=== PATIENT | female | born 1985 | race Caucasian/White ===

== ENCOUNTER 2021-07-07 15:12 | Emergency (ER) | payer MEDICAID, SELFPAY ==
--- NOTE | 2021-07-07 | ECG_ITS ---
Test Reason : cp/dizziness Blood Pressure : / mmHG Vent. Rate : 083 BPM Atrial Rate : 083 BPM P-R Int : 132 ms QRS Dur : 078 ms QT Int : 360 ms P-R-T Axes : 069 063 042 degrees QTc Int : 423 ms Normal sinus rhythm Normal ECG No previous ECGs available Referred By: Generic ED Physician Electronically Signed By:Yony Ramos
[2021-07-07 16:57] VITALS: BP 123/72; PULSE 101; RESP 18; TEMP 36.8; O2SAT 98; BMI 31.3
[2021-07-07 17:28] LABS: IDNOW Serial# 16C4AD1C
[2021-07-07 17:29] LABS: COVID-19 Test Negative (Negative); Influenza A Negative (Negative); Influenza B2 Negative (Negative)
[2021-07-07 19:50] LABS: Basophils Absolute Auto 0.1 X10*3/uL (0.0-0.2); Basophils Percent Auto 0.9 % (0-2); Eosinophils Absolute Auto 0.1 X10*3/uL (0.0-0.4); Eosinophils Percent Auto 1.4 % (0-4); Hematocrit 42.7 % (37.0-47.0); Hemoglobin 14.1 g/dl (12.0-16.0); Imm Gran Abs Auto 0.02 X10*3/uL (0.00-0.03); Imm Gran Pct Auto 0.2 % (0.0-0.4); Lymphocytes Absolute Auto 4.1 X10*3/uL (1.2-4.9); Lymphocytes Percent Auto 51.1 % (20-40); MANUAL DIFF FLAG NO; Mean Corpuscular Hemoglobin 28.2 pg (27.0-33.0); Mean Corpuscular Volume 85.4 fL (80.0-98.0); Monocytes Absolute Auto 0.6 X10*3/uL (0.1-1.2); Monocytes Percent Auto 7.7 % (2-11); Neutrophils Absolute Auto 3.1 x10*3/uL (2.0-8.3); Neutrophils Percent Auto 38.7 % (45-73); Platelet Count 299 X10*3/uL (160-400); Red Cell Distribution Width 13.8 % (11.0-16.0); White Blood Count 8.1 X10*3/uL (4.8-10.8)
[2021-07-07 20:05] LABS: Anion Gap 14 (12-20); Blood Urea Nitrogen 9 mg/dL (9-16); Calcium 10.4 mg/dL (8.4-10.2); Carbon Dioxide 27 mmol/L (22-29); Chloride 101 mmol/L (96-108); Creatinine Clr Calc Pharmacy 108.5; Estimated Glomerular Filt Rate > 60; Glucose Random 122 mg/dL (60-115); Potassium 3.8 mmol/L (3.3-5.1); Sodium 138 mmol/L (135-145)
== END 2021-07-07 21:08 | disposition left against medical advice (07) ==
PROVIDERS: Emergency Provider Emergency Medicine; PCP Family Medicine
DX: R42 Dizziness and giddiness (principal); Z20.822 Contact with and (suspected) exposure to COVID-19
CPT/HCPCS: 36415; 80048; 85025; 87502; 87635; 93005; 99281; 99283

== ENCOUNTER 2021-07-11 15:10 | Inpatient (IN) | payer MEDICAID, OTHER, SELFPAY ==
[2021-07-11] VITALS (13 sets, daily range): BP systolic 137; BP diastolic 82; PULSE 70; RESP 14–20; TEMP 36.3; O2SAT 96; BMI 32.0
[2021-07-11] MEDS: diphenhydrAMINE HCL 50 MG/ML VIAL IM (15:28)
[2021-07-11] MEDS: Haloperidol Lactate 5 MG/ML VIAL IM (15:28)
[2021-07-11] MEDS: LORazepam 2 MG/ML VIAL IM ×2 (15:28→17:40)
--- NOTE | 2021-07-11 15:46 | ED.PSYCH ---
HPI - Psych General Stated Complaint: age unk age,crisis,non verbal per ems Time Seen by Provider: 07/11/21 15:21 Source: EMS Mode of arrival: EMS Limitations: other (will not answer questions, screaming) History of Present Illness HPI Narrative: patient brought in extremely aggressive with jewish preoccupations brought in by EMS as well with police on board MD complaint: hallucinations and other (aggression) Onset (ago): unknown Duration: constant History of same: No Relieving factors: none Exacerbating factors: none Associated psychiatric symptoms: delusions Associated symptoms: other (aggression, agitation, violent behaviors) Treatments prior to arrival: none Related Data Allergies Allergy/AdvReac Type Severity Reaction Status Date / Time Unable to Assess Allergy Verified 07/11/21 15:21 Review of Systems Review of Systems: ROS unable to be obtained due to agitation and not answering questions PMF Past Medical History Source: unable to obtain (will not answer questions unobtainable) Medical History (Updated 07/11/21 @ 16:09 by Lorna Smith DO) Medical history unknown Social History Social History (Updated 07/11/21 @ 15:47 by Lorna Smith DO) Patient Tobacco Use Status: Tobacco use Unknown Use of substances other than those prescribed or required for medical reasons: Refusing to respond Physical Exam Vital Signs: Appearance: Alert. Screaming out loud attempting to grab staff You don't want this. Hitting herself in the head. Eyes: Pupils equal, round and reactive to light. ENT: Pharynx normal. Atraumatic Neck: Normal inspection. Neck supple. CVS: cannot obtain exam. Respiratory: No respiratory distress. Abdomen: Atraumatic Skin: Skin warm and dry. Normal skin color. Normal skin turgor. Extremities: No lower extremity edema. Neuro: Will not participate in exam - moves all extremities, cannot obtain CN exam. Psych: patient extremely agitated, physically and verbally aggressive making threats Course Course Course Narrative: signed out to Tri SHAIKH pending clearance more calm post medications MDM - Psych MDM Narrative Medical decision making narrative: 36 yo female with hx of ?schizophrenia per off of medications here with c/o agitation aggression very violent cannot get much of a history - CARE team to call family. At this time will need labs and IM medications for patient and staff safety given her behaviors are out of control. Section 12 filled out by me on arrival as none was on the chart. Discharge Plan Discharge Clinical Impression: Agitation Patient Disposition: Still a Patient
--- NOTE | 2021-07-11 16:13 | MHC.CARE ---
CARE team received a phone call from pt's partner, Shamar ([phone]) who shared information about the pt. For the past 3 days the pt has been experiencing episodes of intense agitation, yelling and screaming and banging on the romero and floors of his mother's apartment where she has been staying with them. He reported that his mother called 911 for pt to be transported to the hospital for intervention, stating that they were trying to calm her down and since his mother lives in [address] housing that her level of disturbance places his mother at risk of losing her housing voucher. He shared that they have been together for about 3 months and in the time that he's known her she hasn't been on medications, but has been trying to get an appointment with Dr. Chang through [facility] so she can have her medications filled/restarted. He reported that she has an appointment on 07/18/21 but that she can't wait that long because she's been getting worse. He wasn't certain was her diagnosis is, but said that he thinks she said that she has schizophrenia, anxiety, and PTSD. Information has been passed along to the ED attending physician and pod staff.
[2021-07-11] MEDS: OLANZapine 10 MG VIAL IM (17:40)
[2021-07-11 18:15] LABS: COVID-19 Test Negative (Negative); IDNOW Serial# 9DB6401D
[2021-07-12 03:53] LABS: MANUAL DIFF FLAG NO
[2021-07-12 03:54] LABS: Basophils Absolute Auto 0.1 X10*3/uL (0.0-0.2); Basophils Percent Auto 0.8 % (0-2); Eosinophils Absolute Auto 0.1 X10*3/uL (0.0-0.4); Eosinophils Percent Auto 1.7 % (0-4); Hematocrit 42.5 % (37.0-47.0); Hemoglobin 14.3 g/dl (12.0-16.0); Imm Gran Abs Auto 0.01 X10*3/uL (0.00-0.03); Imm Gran Pct Auto 0.2 % (0.0-0.4); Lymphocytes Absolute Auto 2.9 X10*3/uL (1.2-4.9); Lymphocytes Percent Auto 44.6 % (20-40); Mean Corpuscular HGB Conc 33.6 g/dl (31.0-35.0); Mean Corpuscular Hemoglobin 28.6 pg (27.0-33.0); Mean Platelet Volume 9.7 fL (9.4-12.3); Monocytes Absolute Auto 0.4 X10*3/uL (0.1-1.2); Monocytes Percent Auto 6.5 % (2-11); Neutrophils Percent Auto 46.2 % (45-73); Platelet Count 252 X10*3/uL (160-400); Red Cell Distribution Width 13.4 % (11.0-16.0); White Blood Count 6.6 X10*3/uL (4.8-10.8)
[2021-07-12 04:10] LABS: Ethanol < 10 mg/dL
[2021-07-12 04:14] LABS: Alanine Aminotransferase 30 U/L (0-31); Albumin Level 4.5 g/dL (3.5-5.0); Alkaline Phosphatase 69 U/L (39-117); Anion Gap 14 (12-20); Aspartate Amino Transferase 26 U/L (5-31); Bilirubin Total 0.4 mg/dL (0.0-1.0); Blood Urea Nitrogen 10 mg/dL (9-16); Calcium 10.2 mg/dL (8.4-10.2); Carbon Dioxide 26 mmol/L (22-29); Chloride 104 mmol/L (96-108); Creatinine Clr Calc Pharmacy 101.2; Estimated Glomerular Filt Rate > 60; Glucose Random 88 mg/dL (60-115); Magnesium 2.3 mg/dL (1.6-2.6); Potassium 3.5 mmol/L (3.3-5.1); Sodium 140 mmol/L (135-145); Total Protein 7.5 g/dL (6.5-8.0)
[2021-07-12 04:34] LABS: Amphetamine Screen Urine Not Detected (Not Detect); Barbiturates, Urine Not Detected (Not Detect); Benzodiazepines Screen Urine Not Detected (Not Detect); Cannabinoid Screen Urine Not Detected (Not Detect); Cocaine Screen Urine Not Detected (Not Detect); Fentanyl, urine Not Detected (Not Detect); Opiate Screen Urine Not Detected (Not Detect); Phencyclidine Screen Urine Not Detected (Not Detect)
[2021-07-12 04:58] VITALS: BP 113/62; PULSE 74; RESP 17; TEMP 36.5; O2SAT 98
--- NOTE | 2021-07-12 05:47 | PC.NURSE ---
Patient slept through the night, no distress observed/reported, compliant with lab work, compliant with policy change clerk, patient incontinence of bladder, showered, behavior at this time calm, pleasant, and follows instruction well, [facility] referral completed/confirmed/awaiting assessment in the morning, contracted for the safety, med rec completed patient is off her medication since last September, VSS, will continue to monitor.
--- NOTE | 2021-07-12 06:51 | PHA.MEDREC ---
Pharmacy Consult ? Medication Reconciliation Pharmacy has reviewed the medication reconciliation completed by nursing. Tami Martines, ArturoD
--- NOTE | 2021-07-12 07:35 | PC.NURSE ---
patient appears to remain asleep at present respirations are even and unlabored patient appears in no distress
--- NOTE | 2021-07-12 11:09 | PM.PSYCN ---
History of Present Illness Date of Service: 07/12/21 Chief Complaint: age unk age,crisis,non verbal per ems Reason for Consult: erradic, manic behaviors. Discussed with referring provider: Yes Sources of Information: patient interviewed, chart reviewed and crisis/core team assessment reviewed HPI Narrative: Ms. Maynard is a 36 year-old woman with hx of Bipolar Disorder who was brought to [facility] via EMS on 07/11/2021 after boyfriend called police. Per crisis report- pt has been for the past 3 days experiencing episodes of intense agitation, yelling and screaming and banging on the romero and floors of pt's boyfriend's mother apartment where she has been staying with them. In the ED, pt presented as very agitated, yelling buddhism statement related to the devil being present and calling Charlie. She required IM with haldol and ativan 2mg and 2 hrs after IM with olanzapine and ativan. Her utox is negative. Today, pt presents as calmer, she does note that her behavior was off. She agrees that she needs to be in the hospital. She reports hx of Bipolar Disorder and reports not taking medications for several months. When asked about buddhism delusions, pt presents as still very guarded stating that this information is private and she would not disclose it. She denies SI/HI. She denies VH/AH but appears internally preoccupied. Past Psychiatric History: Inpatient: 2015 [facility] OP: none (used to be [facility]) Suicide attempts: denies Past trial: unknown Medical Evaluation Reviewed: Yes [facility] Medical History (Updated 07/13/21 @ 11:21 by [place] Gutierrez) Medical history unknown Diagnostics Vital Signs (24Hr): Vital Signs - 24 hr 07/12/21 20:08 07/13/21 01:40 07/13/21 01:55 Temperature 97.7 F Pulse Rate 97 Respiratory Rate 18 18 12 Blood Pressure 126/80 Pulse Oximetry 96 07/13/21 01:56 07/13/21 02:10 07/13/21 02:11 Temperature Pulse Rate Respiratory Rate 12 13 13 Blood Pressure Pulse Oximetry 07/13/21 02:25 07/13/21 02:40 07/13/21 09:47 Temperature 97.8 F Pulse Rate 89 Respiratory Rate 11 L 11 L 16 Blood Pressure 127/68 Pulse Oximetry 99 BMI result Body Mass Index 32.0 Labs Results: 07/12/21 03:49 07/14/21 08:53 Labs: Laboratory Results - last 48 hr 07/11/21 07/12/21 07/12/21 17:48 03:49 03:49 WBC 6.6 RBC 5.00 Hgb 14.3 Hct 42.5 MCV 85.0 MCH 28.6 MCHC 33.6 RDW 13.4 Plt Count 252 MPV 9.7 Immature Gran % (Auto) 0.2 Neut % (Auto) 46.2 Lymph % (Auto) 44.6 H Mont[place] % (Auto) 6.5 Eos % (Auto) 1.7 Baso % (Auto) 0.8 Lymph # (Auto) 2.9 [place] # (Auto) 0.4 Eos # (Auto) 0.1 Baso # (Auto) 0.1 Abs Immat Gran (auto) 0.01 Absolute Neuts (auto) 3.0 Absolute Nucleated RBC 0.000 Nucleated RBC % (auto) 0.0 Sodium 140 Potassium 3.5 Chloride 104 Carbon Dioxide 26 Anion Gap 14 BUN 10 Creatinine 0.86 Estim Creat Clear Calc 101.2 Estimated GFR > 60 Random Glucose 88 Calcium 10.2 Magnesium 2.3 Total Bilirubin 0.4 AST 26 ALT 30 Alkaline Phosphatase 69 Total Protein 7.5 Albumin 4.5 Urine Opiates Screen Urine Fentanyl Screen Ur Barbiturates Screen Ur Phencyclidine Scrn Ur Amphetamines Screen U Benzodiazepines Scrn Urine Cocaine Screen U Marijuana (THC) Screen Ethyl Alcohol COVID-19 ([facility]) Negative COVID-19 Clin Com See Note 07/12/21 07/12/21 03:49 04:12 WBC RBC Hgb Hct MCV MCH MCHC RDW Plt Count MPV Immature Gran % (Auto) Neut % (Auto) Lymph % (Auto) Montour % (Auto) Eos % (Auto) Baso % (Auto) Lymph # (Auto) [place]our # (Auto) Eos # (Auto) Baso # (Auto) Abs Immat Gran (auto) Absolute Neuts (auto) Absolute Nucleated RBC Nucleated RBC % (auto) Sodium Potassium Chloride Carbon Dioxide Anion Gap BUN Creatinine Estim Creat Clear Calc Estimated GFR Random Glucose Calcium Magnesium Total Bilirubin AST ALT Alkaline Phosphatase Total Protein Albumin Urine Opiates Screen Not Detected Urine Fentanyl Screen Not Detected Ur Barbiturates Screen Not Detected Ur Phencyclidine Scrn Not Detected Ur Amphetamines Screen Not Detected U Benzodiazepines Scrn Not Detected Urine Cocaine Screen Not Detected U Marijuana (THC) Screen Not Detected Ethyl Alcohol < 10 COVID-19 ([facility]) COVID-19 Clin Com Mental Status Exam Mental Status Exam Narrative: Appearance: casually groomed, fair hygiene in NAD Behavior:guarded, suspicious psychomotor: no agitation or retardation noted Speech:clear, some delayed in response, spontaneous Thought process:some thought blocking noted Thought content:some suspiciousness but increase insight into need for psych tx. Mood: anxious Affect: congruent SI:none HI:none VH/AH:appears religiously preoccupied Delusions:buddhism delusions Insight/judgment:improving x 2. Memory/cog: alert, oriented x 3. Medications Medications Current Medications Olanzapine (Olanzapine 7.5 Mg Tablet) 15 mg PO BEDTIME ENRIKE Last Admin: 07/12/21 21:57 Dose: 15 mg Documented by: Pharmacy Consult (Consult Rx Perform Med Rec) 1 each MISCELLANE ONCE PRN PRN Reason: Consult order Allergies Allergies Allergy/AdvReac Type Severity Reaction Status Date / Time No Known Allergies Allergy Verified 07/12/21 05:05 Assessment & Plan Assessment & Plan (1) Bipolar 1 disorder, manic, moderate: Status: Acute Code(s): F31.12 - Bipolar disorder, current episode manic without psychotic features, moderate Plan Ms. Maynard is a 36 year-old with hx of Bipolar Disorder type I brought in to [facility] due to erradic behaviors, agitation, buddhism delusions. Utox negative. Pt does not have OP providers nor is taking any psychotropic medications. PLAN 1. Continue bed search for inpatient admission- for further stabilization, safety containment. 2. scheduled olanzapine 15mg po qhs. pt asked for medication that was given to her yesterday during IM as she found it helpful. 3. aftercare planning. I spent __25____ minutes with the patient and/or on the patient floor today, greater than?50% of which was spent counseling/coordinating care.
--- NOTE | 2021-07-12 11:58 | MHC.CARE ---
Call to [facility] Crisis seeking collateral information regarding patient. They have never evaluated but noted 3 contacts with her. 07/06/21 Boyfriend called 911, police went with CCRT (Community Co-response Team) team went to the home and patient was noted to be very upset hyperventilating, crying hysterically and more so when her boyfriend left the room. Patient refused services or to go to the hospital. 07/07/21 CCRT called patient as a follow up and boyfriend stated patient was at the hospital for treatment of dizziness. 07/11/21 Police/CCRT were called to the boyfriend's mother's home where patient was described by clinician to be paranoid, behaving bizarrely and responding to internal stimuli, needed to be restained by EMT for transport to [facility].
--- NOTE | 2021-07-12 14:29 | PC.NURSE ---
Addendum entered by STEFF Wood 07/12/21 14:39: Pt seen this date for individual OT tx session. Pt presents with increased anxiety with apparent paranoia however is pleasant and receptive to tx session. Pt persevering on contacting N and finding the phone number. Pt reports using coping skills meditation and deep breathing technique to ease feelings of anxiety and states Sometimes I pace up and down the truong too . Pt encouraged to sit out of her room in POD milieu to engage in mindful coloring activity and is agreeable. Pt accepts coloring pages, daily prayer, word searches, sensory tool, and independent reading activities provided this date. Original Note: Pt seen this date for individual OT tx session. Pt presents with increased anxiety with apparent paranoia however is pleasant and receptive to tx session. Pt persevering on contacting N and finding the phone number. Pt reports using coping skills meditation and deep breathing technique to ease feelings of anxiety and states Sometimes I pace up and down the truong too . Pt encouraged to sit out of her room in POD milieu to engage in mindful coloring activity and is receptive. Pt accepts coloring pages, daily prayer, word searches, and independent reading activities provided this date.
--- NOTE | 2021-07-12 17:38 | PC.NURSE ---
client approaches this production underwriter and asks if aqll the meds you gave yesterday can be ordered for me i tried to explain to the client how two of the medicines are of the same class, contacted provider and discovered that patient srinivasan has orders for evening medications and provider tina prns will be put in plac3e
[2021-07-12 20:08] VITALS: BP 126/80; PULSE 97; RESP 18; TEMP 36.5; O2SAT 96
[2021-07-12] MEDS: LORazepam 1 MG TABLET PO (21:57)
[2021-07-12] MEDS: OLANZapine 7.5 MG TABLET 15 MG PO (21:57)
[2021-07-13] VITALS (10 sets, daily range): BP systolic 110–133; BP diastolic 67–87; PULSE 89–103; RESP 11–20; TEMP 36.6–36.7; O2SAT 96–99; BMI 31.5
--- NOTE | 2021-07-13 | ECG_ITS ---
Test Reason : MEDICAL CLEARANCE Blood Pressure : / mmHG Vent. Rate : 072 BPM Atrial Rate : 072 BPM P-R Int : 146 ms QRS Dur : 074 ms QT Int : 378 ms P-R-T Axes : 059 062 040 degrees QTc Int : 413 ms Normal sinus rhythm with sinus arrhythmia Normal ECG No previous ECGs available Referred By: Barbara Bratlett Electronically Signed By:NAYA ZAVALETA MD
[2021-07-13] MEDS: LORazepam 2 MG/ML VIAL IM (01:40)
[2021-07-13] MEDS: Haloperidol Lactate 5 MG/ML VIAL IM (01:40)
[2021-07-13] MEDS: diphenhydrAMINE HCL 50 MG/ML VIAL IM (01:40)
--- NOTE | 2021-07-13 04:00 | PC.NURSE ---
0015 to 0140, patient was found restless, pacing, constantly going to bathroom, washing socks in sink, drinking water from sink, self dialoguing, in her room patient engaged in self hitting, self dialoguing, refused medication, verbally abusive towards staff member, behavior escalating fast, provider notified/ordered/ Ativan 2 mg IM, and Haldol 5 mg IM, and Benadryl 50 mg IM/administered as ordered at 0140 in presence of security. Patient was on one to one for safety observation from 139 to 0240, patient finally fell asleep at 0245, currently in bed appears sleeping, respiration +/=/non labored bilaterally, will continue to monitor.
--- NOTE | 2021-07-13 06:41 | PC.NURSE ---
patient was s/p chemical restraint and slept well, no distress observed/reported, disposition per care team is section 12 inpatient bed search, medication compliant, behavior labile and unpredictable at time psychotic, will continue to monitor.
--- NOTE | 2021-07-13 07:17 | PC.NURSE ---
patient appears to remain asleep at present respirations are even and unlabored patient appears in no distress
[2021-07-13 13:15] LABS: COVID-19 Test Negative (Negative); IDNOW Serial# 16C4AD1C
--- NOTE | 2021-07-13 15:12 | PC.NURSE ---
Nurse 2 Nurse completed
[2021-07-13 16:24] LABS: UPreg QC Valid YES; Urine Pregnancy NEGATIVE (NEGATIVE)
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
[2021-07-13] MEDS: Nicotine Polacrilex 2 MG GUM 4 MG BUCCAL (20:50)
[2021-07-13] MEDS: OLANZapine 7.5 MG TABLET 15 MG PO (21:58)
[2021-07-13] MEDS: hydrOXYzine HCL 50 MG TABLET PO (21:58)
[2021-07-14] MEDS: Acetaminophen 325 MG TABLET 650 MG PO (08:10)
[2021-07-14 08:13] VITALS: BP 122/75; PULSE 96; RESP 17; TEMP 36.4; O2SAT 97
[2021-07-14 09:17] LABS: Estimated Average Glucose 123 mg/dL; Hemoglobin A1C 150.2234 umol/L; Hemoglobin A1c % 5.9 %
[2021-07-14 09:39] LABS: Alanine Aminotransferase 24 U/L (0-31); Albumin Level 4.2 g/dL (3.5-5.0); Alkaline Phosphatase 61 U/L (39-117); Anion Gap 15 (12-20); Aspartate Amino Transferase 19 U/L (5-31); Bilirubin Total 0.3 mg/dL (0.0-1.0); Blood Urea Nitrogen 12 mg/dL (9-16); Calcium 9.5 mg/dL (8.4-10.2); Carbon Dioxide 19 mmol/L (22-29); Chloride 106 mmol/L (96-108); Cholesterol 206 mg/dL; Creatinine Clr Calc Pharmacy 106.5; Estimated Glomerular Filt Rate > 60; Glucose Fasting 135 mg/dL (60-99); HDL Cholesterol 39 mg/dL; LDL Cholesterol Calculated 138 mg/dl; Potassium 3.8 mmol/L (3.3-5.1); Sodium 136 mmol/L (135-145); Total Protein 6.8 g/dL (6.5-8.0); Triglycerides 146 mg/dL
[2021-07-14 09:41] LABS: Thyroid Stimulating Hormone 1.39 uIU/mL (0.32-4.0)
[2021-07-14 09:58] LABS: Folate 16.9 ng/mL (> or = 4.0); Vitamin B12 213 pg/mL (200-900)
--- NOTE | 2021-07-14 10:22 | HO.PSYADMNOT ---
HPI Date of Service: 07/13/21 Chief Complaint: age unk age,crisis,non verbal per ems Sources of Information: patient interviewed, chart reviewed and crisis/core team assessment reviewed HPI Subjective Notes: Moore Warning, Conditional Voluntary and 3 Day Narrative: Ms. Maynard is a 36 year-old woman with hx of Bipolar Disorder who was brought to [facility] ED via EMS on 07/11/2021 after boyfriend called police. Per crisis report- pt has been for the past 3 days experiencing episodes of intense agitation, yelling and screaming and banging on the romero and floors of pt's boyfriend's mother apartment where she has been staying with them. In the ED, pt presented as very agitated, yelling rastafarian statement related to the devil being present and calling Charlie. She required IM with haldol and ativan 2mg and 2 hrs after IM with olanzapine and ativan. Her utox is negative. On the unit, pt presents as calmer, still guarded about rastafarian delusions and AH/VH she was experiencing stating that this information is personal. Pt does report that she was seeing figures that resemble the devil and that she thought people were after her. She reports less racing thoughts since taking olanzapine at night. She reports having more clear thoughts. She denies SI/HI. She asks to be discharged soon as she has to pay for motel of her boyfriend and they don't accept payment over the phone. Past Psychiatric History: Inpatient: 2015 [facility] OP: none (used to be [facility]) Suicide attempts: denies Past trial: unknown Past Psychiatric History: Inpatient: 2015 [facility] OP: none (used to be [facility]) Suicide attempts: denies Past trial: unknown Medical Evaluation Reviewed: Yes [facility] Medical History (Updated 07/13/21 @ 11:21 by [place] Gutierrez) Medical history unknown Diagnostics Vital Signs (24Hr): Vital Signs - 24 hr 07/13/21 16:00 07/13/21 20:51 07/14/21 08:13 Temperature 97.8 F 98.0 F 97.6 F Pulse Rate 93 103 H 96 Respiratory Rate 20 18 17 Blood Pressure 110/67 133/87 122/75 Pulse Oximetry 97 96 97 BMI result Body Mass Index 31.5 Labs Results: 07/12/21 03:49 07/14/21 08:53 Labs: Laboratory Results - last 48 hr 07/13/21 07/13/21 07/14/21 12:51 15:22 08:53 Sodium 136 Potassium 3.8 Chloride 106 Carbon Dioxide 19 L Anion Gap 15 BUN 12 Creatinine 0.81 Estim Creat Clear Calc 106.5 Estimated GFR > 60 Fasting Glucose 135 H Estimat Average Glucose Hemoglobin A1c % Calcium 9.5 D Total Bilirubin 0.3 AST 19 ALT 24 Alkaline Phosphatase 61 Total Protein 6.8 Albumin 4.2 Triglycerides 146 Cholesterol 206 LDL Cholesterol, Calc 138 HDL Cholesterol 39 Vitamin B12 Folate TSH 1.39 Urine Test NEGATIVE COVID-19 ([facility]) Negative COVID-19 Mobile [employer] Com See Note 07/14/21 07/14/21 08:53 08:53 Sodium Potassium Chloride Carbon Dioxide Anion Gap BUN Creatinine Estim Creat Clear Calc Estimated GFR Fasting Glucose Estimat Average Glucose 123 Hemoglobin A1c % 5.9 Calcium Total Bilirubin AST ALT Alkaline Phosphatase Total Protein Albumin Triglycerides Cholesterol LDL Cholesterol, Calc HDL Cholesterol Vitamin B12 213 Folate 16.9 TSH Urine Test COVID-19 ([facility]) COVID-19 Clin Com Meds/Allergies Meds Home Medications Medication Instructions Recorded Confirmed Type No Known Home Meds 07/12/21 07/12/21 History Allergies Allergies Allergy/AdvReac Type Severity Reaction Status Date / Time No Known Allergies Allergy Verified 07/12/21 05:05 Mental Status Exam Mental Status Exam Narrative: Appearance: casually groomed, fair hygiene in NAD Behavior:guarded, suspicious psychomotor: no agitation or retardation noted Speech:clear, some delayed in response, spontaneous Thought process:some thought blocking noted Thought content:some suspiciousness but increase insight into need for psych tx. Mood: anxious Affect: congruent SI:none HI:none VH/AH:appears religiously preoccupied Delusions:rastafarian delusions Insight/judgment:improving x 2. Memory/cog: alert, oriented x 3. Assessment & Plan Assessment & Plan (1) Bipolar 1 disorder, manic, moderate: Status: Acute Code(s): F31.12 - Bipolar disorder, current episode manic without psychotic features, moderate Plan Ms. Lomeli was brought in by police after boyfriend called reporting pt acting erradically, yelling, punching romero, appearing psychotic and delusional. Utox negative. PLAN 1. admit to M3, cv 15 minutes checks for safety 2. continue olanzapine 20mg po qhs- which was started in the ED. 3. Obtain collateral information 4. Aftercare planning. Patient educated on: diagnosis and medication risk/benefits Informed Consent: understands Reason for continued inpatient stay Substantial Risk for: inability to function
[2021-07-14] MEDS: hydrOXYzine HCL 50 MG TABLET PO ×2 (11:10→20:36)
[2021-07-14] MEDS: Nicotine Polacrilex 2 MG GUM 4 MG BUCCAL (11:10)
--- NOTE | 2021-07-14 14:52 | MHC.CLN ---
NUTRITION CONSULT FOR FOOD SENSITIVITIES AND WEIGHT LOSS. REPORTS THAT HAS GERD AND SOME SPICES AND FOODS BOTHER HER. ABLE TO MAKE OWN FOOD CHOICES TO AVOID SUCH FOODS. AWARE OF MENU CHOICES AND THAT SOME FOODS ARE AVAILABLE FROM THE UNIT KITCHEN. REPORTS SOME WEIGHT LOSS WITH DECREASED APPETITE PRIOR TO ADMISSION. APPEARS TO BE EATING BETTER. DISCUSSED DIABETIC DIET DUE TO REPORTED PRE DIABETES. PATIENT WOULD LIKE REGULAR DIET. WOULD LIKE ENSURE BID. ORDER PLACED. PROVIDES ADDITIONAL 700 KCALS, 40 G PROTEIN.
[2021-07-14] MEDS: OLANZapine 10 MG TABLET 20 MG PO (20:36)
[2021-07-14 20:39] VITALS: BP 139/85; PULSE 100; TEMP 36.7; O2SAT 97
[2021-07-14] MEDS: HaloperidoL 5 MG TABLET PO (21:14)
[2021-07-15] MEDS: Acetaminophen 325 MG TABLET 650 MG PO (09:15)
[2021-07-15] MEDS: HaloperidoL 5 MG TABLET PO ×2 (09:15→14:26)
[2021-07-15 09:17] VITALS: BP 110/79; PULSE 73; RESP 16; TEMP 36.6; O2SAT 100
--- NOTE | 2021-07-15 09:23 | HO.PSYCHPN ---
Subjective Subjective Date of Service: 07/15/21 Reason For Visit: age unk age,crisis,non verbal per ems Subjective Notes: Conditional Voluntary Healthcare Proxy: No Guardianship: No Interim History: Patient was seen and discussed in rounds today. Records and plans were reviewed. She is slowly settling in. They have needed to put her on some phone restrictions. She had stated that the Zyprexa has not been helpful and has found the Haldol to be more helpful. The on-call had put that in [place] p.r.n. basis. She had a good experience on the Haldol while in the emergency room. She denies any side effects. Eating and sleeping adequately. Some anxiety was reported. No changes were made today. Labs were reviewed Medication Compliance: Yes Side effects from medications: No Attending Groups: Yes Review of Systems Review of Systems Yes all other systems are reviewed and are negative Diagnostics Vital Signs (24Hr): Vital Signs - 24 hr 07/14/21 20:39 07/15/21 09:17 Temperature 98.0 F 98 F Pulse Rate 100 73 Respiratory Rate 16 Blood Pressure 139/85 110/79 Pulse Oximetry 97 100 BMI result Body Mass Index 31.5 Labs Results: 07/12/21 03:49 07/14/21 08:53 Labs: Laboratory Results - last 48 hr 07/13/21 07/13/21 07/14/21 12:51 15:22 08:53 Sodium 136 Potassium 3.8 Chloride 106 Carbon Dioxide 19 L Anion Gap 15 BUN 12 Creatinine 0.81 Estim Creat Clear Calc 106.5 Estimated GFR > 60 Fasting Glucose 135 H Estimat Average Glucose Hemoglobin A1c % Calcium 9.5 D Total Bilirubin 0.3 AST 19 ALT 24 Alkaline Phosphatase 61 Total Protein 6.8 Albumin 4.2 Triglycerides 146 Cholesterol 206 LDL Cholesterol, Calc 138 HDL Cholesterol 39 Vitamin B12 Folate TSH 1.39 Urine Test NEGATIVE COVID-19 ([facility]) Negative COVID-19 Clin Com See Note 07/14/21 07/14/21 08:53 08:53 Sodium Potassium Chloride Carbon Dioxide Anion Gap BUN Creatinine Estim Creat Clear Calc Estimated GFR Fasting Glucose Estimat Average Glucose 123 Hemoglobin A1c % 5.9 Calcium Total Bilirubin AST ALT Alkaline Phosphatase Total Protein Albumin Triglycerides Cholesterol LDL Cholesterol, Calc HDL Cholesterol Vitamin B12 213 Folate 16.9 TSH Urine Test COVID-19 ([facility]) COVID-19 Clin Com Medications Medications Current Medications Acetaminophen (Acetaminophen 325 Mg Tablet) 650 mg PO Q6H PRN PRN Reason: Headache/Pain Mild Scale (1-3) Last Admin: 07/15/21 09:15 Dose: 650 mg Documented by: Al Hydroxide/Mg Hydroxide (Magnesium Hydrox/Alum Hydrox 30 Ml Oral.Susp) 30 ml PO Q6H PRN PRN Reason: Heartburn/Nausea Haloperidol (Haloperidol 5 Mg Tablet) 5 mg PO BID PRN PRN Reason: agitation Last Admin: 07/15/21 09:15 Dose: 5 mg Documented by: Hydroxyzine HCl (Hydroxyzine Hcl 50 Mg Tablet) 50 mg PO Q6H PRN PRN Reason: Anxiety Last Admin: 07/14/21 20:36 Dose: 50 mg Documented by: Magnesium Hydroxide (Milk Of Magnesia 30 Ml Oral.Susp) 30 ml PO DAILY PRN PRN Reason: Constipation Nicotine Polacrilex (Nicotine Polacrilex 2 Mg Gum) 4 mg BUCCAL Q1H PRN PRN Reason: Nicotine Cravings Last Admin: 07/14/21 11:10 Dose: 4 mg Documented by: Olanzapine (Olanzapine 10 Mg Tablet) 20 mg PO BEDTIME ENRIKE Last Admin: 07/14/21 20:36 Dose: 20 mg Documented by: Pharmacy Consult (Consult Rx Perform Med Rec) 1 each MISCELLANE ONCE PRN PRN Reason: Consult order Trazodone HCl (Trazodone Hcl 50 Mg Tablet) 50 mg PO BEDTIME PRN PRN Reason: Insomnia Allergies Allergies Allergy/AdvReac Type Severity Reaction Status Date / Time No Known Allergies Allergy Verified 07/12/21 05:05 Assessment & Plan Assessment & Plan (1) Bipolar 1 disorder, manic, moderate: Status: Acute Code(s): F31.12 - Bipolar disorder, current episode manic without psychotic features, moderate Plan Ms. Lomeli was brought in by police after boyfriend called reporting pt acting erradically, yelling, punching romero, appearing psychotic and delusional. Utox negative. PLAN 1. admit to M3, cv 15 minutes checks for safety 2. continue olanzapine 20mg po qhs- which was started in the ED. 3. Obtain collateral information 4. Aftercare planning. 07/15: Continue current regimen and plans I spent minutes with the patient and/or on the patient floor today, greater than?50% of which was spent counseling/coordinating care. Reason for contiued inpatient stay Substantial Risk for: med/psych decompensation
[2021-07-15] MEDS: OLANZapine 10 MG TABLET 20 MG PO (20:11)
[2021-07-15 20:16] VITALS: BP 129/79; PULSE 85; TEMP 36.6; O2SAT 98
[2021-07-15] MEDS: hydrOXYzine HCL 50 MG TABLET PO (20:57)
--- NOTE | 2021-07-16 07:52 | HO.PSYCHPN ---
Subjective Subjective Date of Service: 07/16/21 Reason For Visit: age unk age,crisis,non verbal per ems Subjective Notes: Conditional Voluntary and 3 Day Healthcare Proxy: No Guardianship: No Medical Problems Affecting Mental Status: No Interim History: Patient was seen and discussed in rounds today. Records and plans were reviewed. She has been stable and is actually talking and working on issues of trauma, triggers. She is mostly avoidance. She is med compliant. Eating and sleeping adequately. No complaints or side effects. No changes were made today. Her 3 day notice is up tomorrow. Medication Compliance: Yes Side effects from medications: No Review of Systems Review of Systems Yes all other systems are reviewed and are negative Mental Status Exam Mental Status Exam Narrative: In today's visit she is alert, oriented and pleasant. Normal speech. Good eye contact. Affect is appropriate and constricted. No signs of psychosis. Moderate dysphoria present. No SI. Cognitively intact. Judgment is intact Diagnostics Vital Signs (24Hr): Vital Signs - 24 hr 07/15/21 09:17 07/15/21 20:16 Temperature 98 F 97.9 F Pulse Rate 73 85 Respiratory Rate 16 Blood Pressure 110/79 129/79 Pulse Oximetry 100 98 BMI result Body Mass Index 31.5 Labs Results: 07/12/21 03:49 07/14/21 08:53 Labs: Laboratory Results - last 48 hr 07/14/21 07/14/21 07/14/21 08:53 08:53 08:53 Sodium 136 Potassium 3.8 Chloride 106 Carbon Dioxide 19 L Anion Gap 15 BUN 12 Creatinine 0.81 Estim Creat Clear Calc 106.5 Estimated GFR > 60 Fasting Glucose 135 H Estimat Average Glucose 123 Hemoglobin A1c % 5.9 Calcium 9.5 D Total Bilirubin 0.3 AST 19 ALT 24 Alkaline Phosphatase 61 Total Protein 6.8 Albumin 4.2 Triglycerides 146 Cholesterol 206 LDL Cholesterol, Calc 138 HDL Cholesterol 39 Vitamin B12 213 Folate 16.9 TSH 1.39 Medications Medications Current Medications Acetaminophen (Acetaminophen 325 Mg Tablet) 650 mg PO Q6H PRN PRN Reason: Headache/Pain Mild Scale (1-3) Last Admin: 07/15/21 09:15 Dose: 650 mg Documented by: Al Hydroxide/Mg Hydroxide (Magnesium Hydrox/Alum Hydrox 30 Ml Oral.Susp) 30 ml PO Q6H PRN PRN Reason: Heartburn/Nausea Haloperidol (Haloperidol 5 Mg Tablet) 5 mg PO BID PRN PRN Reason: agitation Last Admin: 07/15/21 14:26 Dose: 5 mg Documented by: Hydroxyzine HCl (Hydroxyzine Hcl 50 Mg Tablet) 50 mg PO Q6H PRN PRN Reason: Anxiety Last Admin: 07/15/21 20:57 Dose: 50 mg Documented by: Magnesium Hydroxide (Milk Of Magnesia 30 Ml Oral.Susp) 30 ml PO DAILY PRN PRN Reason: Constipation Nicotine Polacrilex (Nicotine Polacrilex 2 Mg Gum) 4 mg BUCCAL Q1H PRN PRN Reason: Nicotine Cravings Last Admin: 07/14/21 11:10 Dose: 4 mg Documented by: Olanzapine (Olanzapine 10 Mg Tablet) 20 mg PO BEDTIME ENRIKE Last Admin: 07/15/21 20:11 Dose: 20 mg Documented by: Pharmacy Consult (Consult Rx Perform Med Rec) 1 each MISCELLANE ONCE PRN PRN Reason: Consult order Trazodone HCl (Trazodone Hcl 50 Mg Tablet) 50 mg PO BEDTIME PRN PRN Reason: Insomnia Allergies Allergies Allergy/AdvReac Type Severity Reaction Status Date / Time No Known Allergies Allergy Verified 07/12/21 05:05 Assessment & Plan Assessment & Plan (1) Bipolar 1 disorder, manic, moderate: Status: Acute Code(s): F31.12 - Bipolar disorder, current episode manic without psychotic features, moderate Plan Ms. Lomeli was brought in by police after boyfriend called reporting pt acting erradically, yelling, punching romero, appearing psychotic and delusional. Utox negative. PLAN 1. admit to M3, cv 15 minutes checks for safety 2. continue olanzapine 20mg po qhs- which was started in the ED. 3. Obtain collateral information 4. Aftercare planning. 07/15: Continue current regimen and plans 07/16: Continue current regimen plans I spent minutes with the patient and/or on the patient floor today, greater than?50% of which was spent counseling/coordinating care. Reason for contiued inpatient stay Substantial Risk for: other
[2021-07-16] MEDS: hydrOXYzine HCL 50 MG TABLET PO ×2 (08:29→15:52)
[2021-07-16 08:31] VITALS: BP 117/68; PULSE 71; RESP 17; TEMP 36.6; O2SAT 99
[2021-07-16] MEDS: Acetaminophen 325 MG TABLET 650 MG PO ×2 (12:17→19:02)
[2021-07-16] MEDS: HaloperidoL 5 MG TABLET PO ×2 (13:02→20:14)
[2021-07-16] MEDS: Nicotine Polacrilex 2 MG GUM 4 MG BUCCAL (19:24)
[2021-07-16 20:10] VITALS: BP 128/70; PULSE 98; RESP 16; TEMP 36.4; O2SAT 97
[2021-07-16] MEDS: OLANZapine 10 MG TABLET 20 MG PO (20:14)
[2021-07-17 08:08] VITALS: BP 119/68; PULSE 95; RESP 16; TEMP 36.5; O2SAT 95
[2021-07-17] MEDS: Nicotine Polacrilex 2 MG GUM 4 MG BUCCAL ×2 (11:47→15:38)
--- NOTE | 2021-07-17 12:15 | HO.PSYCHPN ---
Subjective Subjective Date of Service: 07/17/21 Reason For Visit: age unk age,crisis,non verbal per ems Subjective Notes: Conditional Voluntary and 3 Day Interim History: Pt much less guarded. She reports hearing less AH. She denies SI/HI. No overt delusional content reported. She reports she has taken some haldol prn and feels it helps better with voices. She asks that she is switched from olanzapine to haldol. No EPS noted on exam. She is looking forward to be discharged tomorrow. Medication Compliance: Yes Side effects from medications: No Review of Systems Review of Systems ROS unable to be obtained due to agitation and not answering questions Yes all other systems are reviewed and are negative Constitutional: Reports no additional constitutional complaints Eyes: Reports no additional eye complaints Reports system reviewed and no additional complaints, except as documented Cardiovascular: Denies chest pain, Denies chest pain at rest, Denies chest pain with activity, Denies Epigastric Pain, Denies rapid heart rate, Denies edema, Denies lightheadedness, Denies dyspnea, Denies orthopnea and Denies slow heart rate Respiratory: Denies dyspnea Gastrointestinal: Denies constipation, Denies GI cramping, Denies diarrhea and Denies vomiting Musculoskeletal: Reports no additional musculoskeletal complaints Diagnostics Vital Signs (24Hr): Vital Signs - 24 hr 07/16/21 20:10 07/17/21 08:08 Temperature 97.6 F 97.7 F Pulse Rate 98 95 Respiratory Rate 16 16 Blood Pressure 128/70 119/68 Pulse Oximetry 97 95 BMI result Body Mass Index 31.5 Labs Results: 07/12/21 03:49 07/14/21 08:53 Medications Medications Current Medications Acetaminophen (Acetaminophen 325 Mg Tablet) 650 mg PO Q6H PRN PRN Reason: Headache/Pain Mild Scale (1-3) Last Admin: 07/16/21 19:02 Dose: 650 mg Documented by: Al Hydroxide/Mg Hydroxide (Magnesium Hydrox/Alum Hydrox 30 Ml Oral.Susp) 30 ml PO Q6H PRN PRN Reason: Heartburn/Nausea Benztropine Mesylate (Benztropine Mesylate 1 Mg Tablet) 1 mg PO BEDTIME ENRIKE Haloperidol (Haloperidol 5 Mg Tablet) 10 mg PO BEDTIME ENRIKE Hydroxyzine HCl (Hydroxyzine Hcl 50 Mg Tablet) 50 mg PO Q6H PRN PRN Reason: Anxiety Last Admin: 07/16/21 15:52 Dose: 50 mg Documented by: Magnesium Hydroxide (Milk Of Magnesia 30 Ml Oral.Susp) 30 ml PO DAILY PRN PRN Reason: Constipation Nicotine Polacrilex (Nicotine Polacrilex 2 Mg Gum) 4 mg BUCCAL Q1H PRN PRN Reason: Nicotine Cravings Last Admin: 07/17/21 11:47 Dose: 4 mg Documented by: Olanzapine (Olanzapine 10 Mg Tablet) 20 mg PO BEDTIME ENRIKE Last Admin: 07/16/21 20:14 Dose: 20 mg Documented by: Pharmacy Consult (Consult Rx Perform Med Rec) 1 each MISCELLANE ONCE PRN PRN Reason: Consult order Trazodone HCl (Trazodone Hcl 50 Mg Tablet) 50 mg PO BEDTIME PRN PRN Reason: Insomnia Allergies Allergies Allergy/AdvReac Type Severity Reaction Status Date / Time No Known Allergies Allergy Verified 07/12/21 05:05 Assessment & Plan Assessment & Plan (1) Bipolar 1 disorder, manic, moderate: Status: Acute Code(s): F31.12 - Bipolar disorder, current episode manic without psychotic features, moderate Plan Ms. Lomeli was brought in by police after boyfriend called reporting pt acting erradically, yelling, punching romero, appearing psychotic and delusional. Utox negative. PLAN 1. admit to M3, cv 15 minutes checks for safety 2. continue olanzapine 20mg po qhs- which was started in the ED. 3. Obtain collateral information 4. Aftercare planning. 07/15: Continue current regimen and plans 07/16: Continue current regimen plans 07/17- switched from olanzapine to haldol, per pt requests which reports haldol has been more effective. I spent __25____ minutes with the patient and/or on the patient floor today, greater than?50% of which was spent counseling/coordinating care. Reason for contiued inpatient stay Substantial Risk for: stable for discharge
[2021-07-17] MEDS: HaloperidoL 5 MG TABLET PO (12:52)
[2021-07-17] MEDS: Acetaminophen 325 MG TABLET 650 MG PO (15:39)
[2021-07-17] MEDS: hydrOXYzine HCL 50 MG TABLET PO ×2 (16:05→22:51)
[2021-07-17 20:05] VITALS: BP 135/80; PULSE 104; RESP 18; TEMP 36.6; O2SAT 96
[2021-07-17] MEDS: Benztropine Mesylate 1 MG TABLET PO (20:10)
[2021-07-17] MEDS: HaloperidoL 5 MG TABLET 10 MG PO (20:10)
[2021-07-18 06:00] VITALS: BP 104/68; PULSE 93; TEMP 36.5; O2SAT 98
[2021-07-18] MEDS: hydrOXYzine HCL 50 MG TABLET PO (08:46)
--- NOTE | 2021-07-18 09:54 | P.DS_ITS ---
DS: Providers Provider Date of Service: 07/18/21 Date of admission: 07/13/21 11:43 Primary care physician: Unknown Physician DS: Diagnosis Discharge Diagnosis (1) Bipolar 1 disorder, manic, moderate: Status: Acute DS: Medications Discharge Medications Home Medications: Previous Rx's Medication Instructions Recorded benztropine 1 mg tablet 1 mg PO BEDTIME #30 tab 07/18/21 haloperidol 10 mg tablet 10 mg PO BEDTIME #30 tab 07/18/21 Mental Status Exam Mental Status Exam Narrative: Appearance: casually groomed, improved hygiene, in NAD Behavior: cooperative Psychomotor: no agitation or retardation noted Speech: clear, normal rate/rhythm/volume, spontaneous TP: linear TC: no overt psychosis, residual AH, hoahaoism delusions, future oriented and open to continue OP psych tc. Mood: good Affect: brighter, non labile SI: none HI: none AH: residual, less than when she came in VH: none Delusions: residual hoahaoism delusions Insight/judgment: fair x 2. Memory/cog: alert, oriented x 3. grossly intact to conversational testing. Data Data Completed and Pending Completed studies during hospitalization [Text1]: 07/11/21 07/12/21 07/12/21 17:48 03:49 03:49 WBC 6.6 RBC 5.00 Hgb 14.3 Hct 42.5 MCV 85.0 MCH 28.6 MCHC 33.6 RDW 13.4 Plt Count 252 MPV 9.7 Immature Gran % (Auto) 0.2 Neut % (Auto) 46.2 Lymph % (Auto) 44.6 H [place] % (Auto) 6.5 Eos % (Auto) 1.7 Baso % (Auto) 0.8 Lymph # (Auto) 2.9 [place] # (Auto) 0.4 Eos # (Auto) 0.1 Baso # (Auto) 0.1 Abs Immat Gran (auto) 0.01 Absolute Neuts (auto) 3.0 Absolute Nucleated RBC 0.000 Nucleated RBC % (auto) 0.0 Sodium 140 Potassium 3.5 Chloride 104 Carbon Dioxide 26 Anion Gap 14 BUN 10 Creatinine 0.86 Estim Creat Clear Calc 101.2 Estimated GFR > 60 Random Glucose 88 Fasting Glucose Estimat Average Glucose Hemoglobin A1c % Calcium 10.2 Magnesium 2.3 Total Bilirubin 0.4 AST 26 ALT 30 Alkaline Phosphatase 69 Total Protein 7.5 Albumin 4.5 Triglycerides Cholesterol LDL Cholesterol, Calc HDL Cholesterol Vitamin B12 Folate TSH Urine Test Urine Opiates Screen Urine Fentanyl Screen Ur Barbiturates Screen Ur Phencyclidine Scrn Ur Amphetamines Screen U Benzodiazepines Scrn Urine Cocaine Screen U Marijuana (THC) Screen Ethyl Alcohol COVID-19 ([facility]) Negative COVID-19 Clin Com See Note 07/12/21 07/12/21 07/13/21 03:49 04:12 12:51 WBC RBC Hgb Hct MCV MCH MCHC RDW Plt Count MPV Immature Gran % (Auto) Neut % (Auto) Lymph % (Auto) [place] % (Auto) Eos % (Auto) Baso % (Auto) Lymph # (Auto) [place] # (Auto) Eos # (Auto) Baso # (Auto) Abs Immat Gran (auto) Absolute Neuts (auto) Absolute Nucleated RBC Nucleated RBC % (auto) Sodium Potassium Chloride Carbon Dioxide Anion Gap BUN Creatinine Estim Creat Clear Calc Estimated GFR Random Glucose Fasting Glucose Estimat Average Glucose Hemoglobin A1c % Calcium Magnesium Total Bilirubin AST ALT Alkaline Phosphatase Total Protein Albumin Triglycerides Cholesterol LDL Cholesterol, Calc HDL Cholesterol Vitamin B12 Folate TSH Urine Test Urine Opiates Screen Not Detected Urine Fentanyl Screen Not Detected Ur Barbiturates Screen Not Detected Ur Phencyclidine Scrn Not Detected Ur Amphetamines Screen Not Detected U Benzodiazepines Scrn Not Detected Urine Cocaine Screen Not Detected U Marijuana (THC) Screen Not Detected Ethyl Alcohol < 10 COVID-19 ([facility]) Negative COVID-19 Clin Com See Note 07/13/21 07/14/21 07/14/21 15:22 08:53 08:53 WBC RBC Hgb Hct MCV MCH MCHC RDW Plt Count MPV Immature Gran % (Auto) Neut % (Auto) Lymph % (Auto) [place] % (Auto) Eos % (Auto) Baso % (Auto) Lymph # (Auto) [place] # (Auto) Eos # (Auto) Baso # (Auto) Abs Immat Gran (auto) Absolute Neuts (auto) Absolute Nucleated RBC Nucleated RBC % (auto) Sodium 136 Potassium 3.8 Chloride 106 Carbon Dioxide 19 L Anion Gap 15 BUN 12 Creatinine 0.81 Estim Creat Clear Calc 106.5 Estimated GFR > 60 Random Glucose Fasting Glucose 135 H Estimat Average Glucose 123 Hemoglobin A1c % 5.9 Calcium 9.5 D Magnesium Total Bilirubin 0.3 AST 19 ALT 24 Alkaline Phosphatase 61 Total Protein 6.8 Albumin 4.2 Triglycerides 146 Cholesterol 206 LDL Cholesterol, Calc 138 HDL Cholesterol 39 Vitamin B12 Folate TSH 1.39 Urine Test NEGATIVE Urine Opiates Screen Urine Fentanyl Screen Ur Barbiturates Screen Ur Phencyclidine Scrn Ur Amphetamines Screen U Benzodiazepines Scrn Urine Cocaine Screen U Marijuana (THC) Screen Ethyl Alcohol COVID-19 ([facility]) COVID-19 Clin Com 07/14/21 08:53 WBC RBC Hgb Hct MCV MCH MCHC RDW Plt Count MPV Immature Gran % (Auto) Neut % (Auto) Lymph % (Auto) [place] % (Auto) Eos % (Auto) Baso % (Auto) Lymph # (Auto) [place] # (Auto) Eos # (Auto) Baso # (Auto) Abs Immat Gran (auto) Absolute Neuts (auto) Absolute Nucleated RBC Nucleated RBC % (auto) Sodium Potassium Chloride Carbon Dioxide Anion Gap BUN Creatinine Estim Creat Clear Calc Estimated GFR Random Glucose Fasting Glucose Estimat Average Glucose Hemoglobin A1c % Calcium Magnesium Total Bilirubin AST ALT Alkaline Phosphatase Total Protein Albumin Triglycerides Cholesterol LDL Cholesterol, Calc HDL Cholesterol Vitamin B12 213 Folate 16.9 TSH Urine Test Urine Opiates Screen Urine Fentanyl Screen Ur Barbiturates Screen Ur Phencyclidine Scrn Ur Amphetamines Screen U Benzodiazepines Scrn Urine Cocaine Screen U Marijuana (THC) Screen Ethyl Alcohol COVID-19 ([facility]) COVID-19 Clin Com DS: Summary Hospital Course Hospital Course: HPI: Subjective Notes: Moore Warning, Conditional Voluntary and 3 Day Narrative: Ms. Maynard is a 36 year-old woman with hx of Bipolar Disorder who was brought to [facility] ED via EMS on 07/11/2021 after boyfriend called police. Per crisis report- pt has been for the past 3 days experiencing episodes of intense agitation, yelling and screaming and banging on the romero and floors of pt's boyfriend's mother apartment where she has been staying with them. In the ED, pt presented as very agitated, yelling hoahaoism statement related to the devil being present and calling Charlie. She required IM with haldol and ativan 2mg and 2 hrs after IM with olanzapine and ativan. Her utox is negative. On the unit, pt presents as calmer, still guarded about hoahaoism delusions and AH/VH she was experiencing stating that this information is personal. Pt does report that she was seeing figures that resemble the devil and that she thought people were after her. She reports less racing thoughts since taking olanzapine at night. She reports having more clear thoughts. She denies SI/HI. She asks to be discharged soon as she has to pay for motel of her boyfriend and they don't accept payment over the phone. HOSPITAL COURSE On the unit, Ms. Lomeli was admitted on a CV and placed on 15 minutes checks for safety. Pt reported hearing voices of devil and other people that freighted her. After discussing risks, benefits and alternative treatment options, pt agreed to continue Olanzapine. She had haldol PRN which she utilized initially often and asked if this medication could be scheduled as she felt it was more effective than Olanzapine. Her affect gradually presented as less labile, less suspicious, calmer. She denied SI/HI. She reported less AH, residual hoahaoism delusions but pt able to have coherent and logical conversations. There were no incidences of disruptive behaviors nor use of restraints. She agreed to be referred to OP psych providers. Status at Discharge Cognitive/behavioral status at discharge: Pt with brighter, non labile affect, less guarded, less AH. No SI/HI. She was sleeping and eating better. No signs of aggression towards self or others. Time Spent with Patient Time attestation: Total time spent providing and/or coordinating discharge services: Discharge Plan Discharge Patient Disposition: Home, Self-Care Discharge Diagnosis: Bipolar type 1 Disorder, brissa Referrals: Therapy & Psychiatry [Other] - 1 Week (Please follow up with [facility] at the phone number listed above regarding your therapy and psychiatry appointments. Please also provide them with the best phone number to reach you) Scott Reyes (Therapy) [Other] - 1 Week (- Please call [facility] and see if your appointment will be in person of via zoom.) Edwige Chang MD [Physician] - 07/24/21 9:30 am Discharge Medications: New benztropine 1 mg Tablet 1 mg PO BEDTIME Qty: 30 0RF haloperidol 10 mg tablet 10 mg PO BEDTIME Qty: 30 0RF hydroxyzine HCl 50 mg Tablet 50 mg PO Q6H PRN (Reason: Anxiety) Qty: 60 0RF Discharge Orders: Discharge Order (Routine); Ordered 07/18/21 Ordered By: [place] Gutierrez Activity on Discharge: As tolerated Stand Alone Forms: Patient Portal Discharge page, Community Support Care Plan Goals: 1. Maintain mood 2. No SI/HI 3. no aggression towards self or others 4. Much less AH, no delusions Health Concerns: Follow up with PCP Plan of Treatment: 1. Take medications as prescribed 2. Go to nearest ED or call 911 in event of emergency Assessment: Pt with brighter affect, much less AH, less delusional content noted or reported. Pt is future oriented looking forward to continue OP psych tx. No SI/HI. No signs of aggression towards self or others. Discharge Date/Time: 07/18/21 11:32
[2021-07-18 10:17] LABS: Appearance Urine CLEAR; Glucose Urine UA NEG (NEG); Leukocyte Esterase Urine NEG (NEG); Nitrite Urine NEG (NEG); PH 5.5 (5.0-8.0); Specific Gravity - Urine <= 1.005 (1.005-1.025); Urine Blood NEG (NEG); Urine Ketones NEG (NEG); Urine Protein NEG (NEG-TRACE)
[2021-07-18 10:19] LABS: Color Urine COLORLESS
--- NOTE | 2021-07-18 10:44 | PC.NURSE ---
Leah is alert, fully oriented, pleasant and cooperative with discharge procedure. She denies ideation, plan or intent to harm self or others. She denies perceptual disturbance. She reports urinary frequency so clean catch with reflex was ordered and sent to lab. results pending. Otherwise she denies physical complaint.
== END 2021-07-18 11:32 | disposition home or self-care (01) | DRG 753 ==
LOC: HO.ED 07-13 11:37 → HO.PADLT16 07-13 16:16
PROVIDERS: Physician Assistant; Admitting Provider Psychiatry & Neurology Psychiatry; Emergency Provider Emergency Medicine; Visit Provider Social Worker
DX: F31.12 Bipolar disorder, current episode manic without psychotic features, moderate (principal); Z91.14 Patient's other noncompliance with medication regimen; Z78.1 Physical restraint status; Z79.899 Other long term (current) drug therapy; Z87.891 Personal history of nicotine dependence
CPT/HCPCS: 36415; 80053; 80061; 80307; 81003; 81025; 82077; 82607; 82746; 83036; 83735; 84443; 85025; 87635; 93005; 99285; J1200; J2060

== ENCOUNTER → 2021-10-06 09:03 | Outpatient (BNVA) | payer MEDICAID, SELFPAY | PROVIDERS: Visit Provider Nurse Practitioner Psychiatric/Mental Health | DX: F11.20 Opioid dependence, uncomplicated (principal) | CPT/HCPCS: 99212 ==

== ENCOUNTER → 2021-10-19 08:56 | Outpatient (BNVA) | payer MEDICAID, SELFPAY | PROVIDERS: PCP Family Medicine; Visit Provider Nurse Practitioner Psychiatric/Mental Health | DX: F11.20 Opioid dependence, uncomplicated (principal); Z51.81 Encounter for therapeutic drug level monitoring; Z79.899 Other long term (current) drug therapy | CPT/HCPCS: 80305; 99212 ==

== ENCOUNTER 2021-11-17 03:41 | Emergency (ER) | payer MEDICAID, SELFPAY ==
[2021-11-17 03:50] VITALS: BP 131/76; PULSE 86; RESP 16; TEMP 36.4; O2SAT 98; BMI 29.8
[2021-11-17 04:25] LABS: Appearance Urine Clear; Color Urine Yellow; Glucose Urine UA Negative (Negative); Leukocyte Esterase Urine Negative (Negative); Nitrite Urine Negative (Negative); Specific Gravity - Urine 1.025 (1.005-1.025); UMIC TRIGGER UA YES; UPreg QC Valid YES; Urine Blood Small (1+) (Negative); Urine Ketones Negative (Negative); Urine Pregnancy NEGATIVE (NEGATIVE); Urine Protein Negative (Neg-Trace)
[2021-11-17 04:32] LABS: Basophils Absolute Auto 0.1 X10*3/uL (0.0-0.2); Basophils Percent Auto 0.7 % (0-2); Eosinophils Absolute Auto 0.2 X10*3/uL (0.0-0.4); Eosinophils Percent Auto 2.1 % (0-4); Hematocrit 39.2 % (37.0-47.0); Hemoglobin 13.2 g/dl (12.0-16.0); Imm Gran Abs Auto 0.01 X10*3/uL (0.00-0.03); Imm Gran Pct Auto 0.1 % (0.0-0.4); Lymphocytes Percent Auto 41.7 % (20-40); MANUAL DIFF FLAG NO; Mean Corpuscular HGB Conc 33.7 g/dl (31.0-35.0); Mean Corpuscular Hemoglobin 27.7 pg (27.0-33.0); Mean Corpuscular Volume 82.2 fL (80.0-98.0); Mean Platelet Volume 9.6 fL (9.4-12.3); Monocytes Absolute Auto 0.4 X10*3/uL (0.1-1.2); Monocytes Percent Auto 5.9 % (2-11); Neutrophils Absolute Auto 3.6 x10*3/uL (2.0-8.3); Neutrophils Percent Auto 49.5 % (45-73); Platelet Count 319 X10*3/uL (160-400); Red Blood Count 4.77 X10*6/uL (4.20-5.50); Red Cell Distribution Width 13.2 % (11.0-16.0); White Blood Count 7.3 X10*3/uL (4.8-10.8)
[2021-11-17 04:38] LABS: COVID-19 Test Negative (Negative)
--- NOTE | 2021-11-17 04:39 | ED.PSYCH ---
HPI - Psych General Chief Complaint: Psychiatric Symptoms Stated Complaint: crisis Time Seen by Provider: 11/17/21 04:42 Source: patient Mode of arrival: EMS Limitations: no limitations History of Present Illness HPI Narrative: Patient has history of depression bipolar 1 disorder been under stress lately complaining of increased depression and hopelessness denied SI/HI/AVH patient was kicked out by her boyfriend no place to go Related Data Home Medications Medication Instructions Recorded Confirmed amlodipine 5 mg tablet 1 tab PO DAILY 11/17/21 11/17/21 atorvastatin 20 mg tablet 1 tab PO DAILY 11/17/21 11/17/21 buprenorphine 8 mg-naloxone 2 mg 1 strip sublingual DAILY 11/17/21 11/17/21 sublingual film (Suboxone) gabapentin 600 mg tablet 1 tab PO BID 11/17/21 11/17/21 hydroxyzine HCl 50 mg tablet 1 tab PO BEDTIME PRN Anxiety 11/17/21 11/17/21 levocetirizine 5 mg tablet 1 tab PO QPM 11/17/21 11/17/21 melatonin 3 mg tablet 1 tab PO BEDTIME PRN Insomnia 11/17/21 11/17/21 naproxen 500 mg tablet 1 tab PO BID PRN Pain (Scale Score 11/17/21 11/17/21 4-6) Allergies Allergy/AdvReac Type Severity Reaction Status Date / Time No Known Allergies Allergy Verified 10/19/21 09:22 Review of Systems Review of Systems: Yes all other systems are reviewed and are negative PMFSH Past Medical History Medical History Medical history unknown Social History Social History Household Members: None Housing: Homeless Patient Tobacco Use Status: Former Tobacco user Quit Date: One month ago Tobacco use type: Cigarette 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 Oriented X3. No acute distress. Anxious Eyes: PERRLA, No Nystagmus ENT: Pharynx normal. Oral Mucosa moist Neck: Normal inspection. Neck supple. CVS: Normal heart rate and rhythm. Pulses normal. Respiratory: No respiratory distress. Equal air entry bilateral, no wheezing/rales/rhonchi Abdomen: Soft and nontender. Bowel sounds are present, no mass palpable, no CVA tenderness Skin: Skin warm and dry. Normal skin color. Normal skin turgor. Extremities: No lower extremity edema. No calf tenderness psych: Relaxed normal mood denied any SI/HI no AVH Neuro: Oriented X 3. No motor deficit. No sensory deficit.No cerebellar signs , cranial nerves II-XII intact MDM - Psych MDM Narrative Medical decision making narrative: Patient very anxious at this time, will get crisis evaluation done for increased depression Lab Data Attestation: I reviewed the patient's lab results. Result diagrams: 11/17/21 04:28 11/17/21 04:28 Labs: Lab Results 11/17/21 11/17/21 11/17/21 Range/Units 04:09 04:09 04:09 WBC (4.8-10.8) X10*3/uL RBC (4.20-5.50) X10*6/uL Hgb (12.0-16.0) g/dl Hct (37.0-47.0) % MCV (80.0-98.0) fL MCH (27.0-33.0) pg MCHC (31.0-35.0) g/dl RDW (11.0-16.0) % Plt Count (160-400) X10*3/uL MPV (9.4-12.3) fL Immature Gran % (Auto) (0.0-0.4) % Neut % (Auto) (45-73) % Lymph % (Auto) (20-40) % [place] % (Auto) (2-11) % Eos % (Auto) (0-4) % Baso % (Auto) (0-2) % Lymph # (Auto) (1.2-4.9) X10*3/uL [place] # (Auto) (0.1-1.2) X10*3/uL Eos # (Auto) (0.0-0.4) X10*3/uL Baso # (Auto) (0.0-0.2) X10*3/uL Abs Immat Gran (auto) (0.00-0.03) X10*3/uL Absolute Neuts (auto) (2.0-8.3) x10*3/uL Absolute Nucleated RBC (0.0-0.012) X10*3/uL Nucleated RBC % (auto) (0.0-0.2) /100WBC Sodium (135-145) mmol/L Potassium (3.3-5.1) mmol/L Chloride (96-108) mmol/L Carbon Dioxide (22-29) mmol/L Anion Gap (12-20) BUN (9-16) mg/dL Creatinine (0.5-1.4) mg/dL Estim Creat Clear Calc Estimated GFR Random Glucose (60-115) mg/dL Calcium (8.4-10.2) mg/dL Total Bilirubin (0.0-1.0) mg/dL AST (5-31) U/L ALT (0-31) U/L Alkaline Phosphatase (39-117) U/L Total Protein (6.5-8.0) g/dL Albumin (3.5-5.0) g/dL Urine Color Yellow Urine Appearance Clear Urine pH 5.0 (5.0-9.0) Ur Specific [place] 1.025 (1.005-1.025) Urine Protein Negative (Neg-Trace) mg/dL Urine Glucose (UA) Negative (Negative) mg/dL Urine Ketones Negative (Negative) mg/dL Urine Blood Small (1+) H (Negative) Urine Nitrite Negative (Negative) Ur Leukocyte Esterase Negative (Negative) Urine RBC 3-5 H (0-2) /HPF Urine WBC 0-5 (0-5) /HPF Ur Squamous Epith Cells 3-5 (0-2) /HPF Urine Bacteria 1+ (None Seen) Hyaline Casts 0-2 (0-2) /LPF Urine Test (NEGATIVE) Urine Opiates Screen Not Detected (Not Detect) Urine Fentanyl Screen POSITIVE H (Not Detect) Ur Barbiturates Screen Not Detected (Not Detect) Ur Phencyclidine Scrn POSITIVE H (Not Detect) Ur Amphetamines Screen Not Detected (Not Detect) U Benzodiazepines Scrn Not Detected (Not Detect) Urine Cocaine Screen POSITIVE H (Not Detect) U Marijuana (THC) Screen Not Detected (Not Detect) COVID-19 ([facility]) Negative (Negative) COVID-19 Clin Com See Note 11/17/21 11/17/21 11/17/21 Range/Units 04:09 04:28 04:28 WBC 7.3 (4.8-10.8) X10*3/uL RBC 4.77 (4.20-5.50) X10*6/uL Hgb 13.2 (12.0-16.0) g/dl Hct 39.2 (37.0-47.0) % MCV 82.2 (80.0-98.0) fL MCH 27.7 (27.0-33.0) pg MCHC 33.7 (31.0-35.0) g/dl RDW 13.2 (11.0-16.0) % Plt Count 319 D (160-400) X10*3/uL MPV 9.6 (9.4-12.3) fL Immature Gran % (Auto) 0.1 (0.0-0.4) % Neut % (Auto) 49.5 (45-73) % Lymph % (Auto) 41.7 H (20-40) % [place] % (Auto) 5.9 (2-11) % Eos % (Auto) 2.1 (0-4) % Baso % (Auto) 0.7 (0-2) % Lymph # (Auto) 3.0 (1.2-4.9) X10*3/uL [place] # (Auto) 0.4 (0.1-1.2) X10*3/uL Eos # (Auto) 0.2 (0.0-0.4) X10*3/uL Baso # (Auto) 0.1 (0.0-0.2) X10*3/uL Abs Immat Gran (auto) 0.01 (0.00-0.03) X10*3/uL Absolute Neuts (auto) 3.6 (2.0-8.3) x10*3/uL Absolute Nucleated RBC 0.000 (0.0-0.012) X10*3/uL Nucleated RBC % (auto) 0.0 (0.0-0.2) /100WBC Sodium 137 (135-145) mmol/L Potassium 3.9 (3.3-5.1) mmol/L Chloride 102 (96-108) mmol/L Carbon Dioxide 23 (22-29) mmol/L Anion Gap 16 (12-20) BUN 20 H D (9-16) mg/dL Creatinine 0.71 (0.5-1.4) mg/dL Estim Creat Clear Calc 118.4 Estimated GFR > 60 Random Glucose 112 (60-115) mg/dL Calcium 9.8 (8.4-10.2) mg/dL Total Bilirubin < 0.2 (0.0-1.0) mg/dL AST 18 (5-31) U/L ALT 17 (0-31) U/L Alkaline Phosphatase 76 D (39-117) U/L Total Protein 7.4 (6.5-8.0) g/dL Albumin 4.6 (3.5-5.0) g/dL Urine Color Urine Appearance Urine pH (5.0-9.0) Ur Specific [place] (1.005-1.025) Urine Protein (Neg-Trace) mg/dL Urine Glucose (UA) (Negative) mg/dL Urine Ketones (Negative) mg/dL Urine Blood (Negative) Urine Nitrite (Negative) Ur Leukocyte Esterase (Negative) Urine RBC (0-2) /HPF Urine WBC (0-5) /HPF Ur Squamous Epith Cells (0-2) /HPF Urine Bacteria (None Seen) Hyaline Casts (0-2) /LPF Urine Test NEGATIVE (NEGATIVE) Urine Opiates Screen (Not Detect) Urine Fentanyl Screen (Not Detect) Ur Barbiturates Screen (Not Detect) Ur Phencyclidine Scrn (Not Detect) Ur Amphetamines Screen (Not Detect) U Benzodiazepines Scrn (Not Detect) Urine Cocaine Screen (Not Detect) U Marijuana (THC) Screen (Not Detect) COVID-19 ([facility]) (Negative) COVID-19 Clin Com Discharge Plan Discharge Clinical Impression: Bipolar 1 disorder, manic, moderate Patient Disposition: Still a Patient Prescriptions: No Action gabapentin 600 mg tablet 1 tab PO BID atorvastatin 20 mg tablet 1 tab PO DAILY hydroxyzine HCl 50 mg tablet 1 tab PO BEDTIME PRN (Reason: Anxiety) amlodipine 5 mg tablet 1 tab PO DAILY naproxen 500 mg tablet 1 tab PO BID PRN (Reason: Pain (Scale Score 4-6)) levocetirizine 5 mg tablet 1 tab PO QPM buprenorphine-naloxone [Suboxone] 8-2 mg film 1 strip sublingual DAILY melatonin 3 mg tablet 1 tab PO BEDTIME PRN (Reason: Insomnia)
[2021-11-17 04:43] LABS: Bacteria Urine 1+ (None Seen); Hyaline Casts Urine 0-2 /LPF (0-2); WBC Urine 0-5 /HPF (0-5)
[2021-11-17] MEDS: LORazepam 1 MG TABLET 2 MG PO (04:51)
[2021-11-17 04:52] LABS: Alanine Aminotransferase 17 U/L (0-31); Albumin Level 4.6 g/dL (3.5-5.0); Alkaline Phosphatase 76 U/L (39-117); Anion Gap 16 (12-20); Aspartate Amino Transferase 18 U/L (5-31); Bilirubin Total < 0.2 mg/dL (0.0-1.0); Blood Urea Nitrogen 20 mg/dL (9-16); Calcium 9.8 mg/dL (8.4-10.2); Carbon Dioxide 23 mmol/L (22-29); Chloride 102 mmol/L (96-108); Creatinine Clr Calc Pharmacy 118.4; Estimated Glomerular Filt Rate > 60; Glucose Random 112 mg/dL (60-115); Potassium 3.9 mmol/L (3.3-5.1); Sodium 137 mmol/L (135-145); Total Protein 7.4 g/dL (6.5-8.0)
--- NOTE | 2021-11-17 04:54 | PC.NURSE ---
Patient just got changed over, coherent/calm but patient reported having racing thought/provider notified/ordered Ativan 2 mg PO/administered as ordered/pending effect, BHN referral completed/confirmed/pending effect, will continue to monitor.
[2021-11-17 04:55] LABS: Amphetamine Screen Urine Not Detected (Not Detect); Barbiturates, Urine Not Detected (Not Detect); Benzodiazepines Screen Urine Not Detected (Not Detect); Cannabinoid Screen Urine Not Detected (Not Detect); Cocaine Screen Urine POSITIVE (Not Detect); Fentanyl, urine POSITIVE (Not Detect); Opiate Screen Urine Not Detected (Not Detect); Phencyclidine Screen Urine POSITIVE (Not Detect)
--- NOTE | 2021-11-17 07:32 | PC.NURSE ---
Report recieved. PT currently sleeping, respirations even and unlabored, in no apparent distress. PT waiting to be seen by Crisis.
[2021-11-17 08:47] VITALS: BP 127/85; PULSE 92; RESP 13; O2SAT 98
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
== END 2021-11-17 11:48 | disposition home or self-care (01) ==
PROVIDERS: Emergency Provider Internal Medicine
DX: F31.62 Bipolar disorder, current episode mixed, moderate (principal); Z20.822 Contact with and (suspected) exposure to COVID-19; Z79.899 Other long term (current) drug therapy
CPT/HCPCS: 36415; 80053; 80307; 81001; 81025; 85025; 87635; 99284

== ENCOUNTER 2022-04-12 18:01 | Inpatient (IN) | payer OTHER, SELFPAY ==
[2022-04-12 18:22] VITALS: BP 118/67; PULSE 91; RESP 16; TEMP 36.6; O2SAT 96
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
[2022-04-13 08:00] VITALS: BP 111/71; PULSE 86; RESP 18; TEMP 36.6; O2SAT 98
[2022-04-13] MEDS: hydrOXYzine HCL 25 MG TABLET PO (08:58)
[2022-04-13 09:21] LABS: Estimated Average Glucose 126 mg/dL
[2022-04-13 09:30] LABS: Alanine Aminotransferase 18 U/L (0-31); Albumin Level 4.6 g/dL (3.5-5.0); Alkaline Phosphatase 91 U/L (39-117); Anion Gap 15 (12-20); Aspartate Amino Transferase 21 U/L (5-31); Bilirubin Direct 0.2 mg/dL (0.0-0.5); Bilirubin Total 0.9 mg/dL (0.0-1.0); Blood Urea Nitrogen 15 mg/dL (9-16); Calcium 9.5 mg/dL (8.4-10.2); Carbon Dioxide 24 mmol/L (22-29); Chloride 103 mmol/L (96-108); Cholesterol 317 mg/dL; Estimated Glomerular Filt Rate > 60; Glucose Fasting 105 mg/dL (60-99); HDL Cholesterol 52 mg/dL; LDL Cholesterol Calculated 241 mg/dl; Potassium 4.6 mmol/L (3.3-5.1); Sodium 137 mmol/L (135-145); Total Protein 7.5 g/dL (6.5-8.0); Triglycerides 122 mg/dL
[2022-04-13 09:59] LABS: Folate 13.2 ng/mL (> or = 4.0); Free T4 (Free Thyroxine) 0.88 ng/dL (0.71-1.85); Thyroid Stimulating Hormone 0.87 uIU/mL (0.32-4.0); Vitamin B12 330 pg/mL (200-900)
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
[2022-04-13] MEDS: HaloperidoL 5 MG TABLET PO (13:18)
[2022-04-13] MEDS: hydrOXYzine HCL 50 MG TABLET PO (14:29)
[2022-04-13 16:55] VITALS: BP 124/75; PULSE 110; RESP 18; TEMP 36.6; O2SAT 98
[2022-04-13] MEDS: cloNIDine HCL 0.1 MG TABLET PO (17:02)
[2022-04-13 18:10] LABS: CT PCR NOT DETECTED (Not Detect.); NG PCR NOT DETECTED (Not Detect.)
[2022-04-13 23:02] VITALS: BP 92/52; PULSE 74; RESP 18; TEMP 36.6; O2SAT 95
[2022-04-14 09:00] VITALS: BP 112/77; PULSE 86; RESP 16; TEMP 36.5; O2SAT 99
[2022-04-14] MEDS: HaloperidoL 5 MG TABLET PO ×2 (09:27→21:15)
[2022-04-14] MEDS: OLANZapine 2.5 MG TABLET PO ×3 (09:30→21:15)
[2022-04-14] MEDS: hydrOXYzine HCL 50 MG TABLET PO (11:46)
[2022-04-14] MEDS: Acetaminophen 325 MG TABLET 650 MG PO (12:39)
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
[2022-04-14 21:00] VITALS: BP 102/67; PULSE 67; RESP 16; TEMP 36.4; O2SAT 96
[2022-04-14] MEDS: cloNIDine HCL 0.1 MG TABLET PO (21:14)
[2022-04-14] MEDS: traZODone HCL 50 MG TABLET PO (21:15)
[2022-04-15] MEDS: Acetaminophen 325 MG TABLET 650 MG PO (07:25)
[2022-04-15 07:45] VITALS: BP 121/69; PULSE 76; RESP 16; TEMP 36.4; O2SAT 99
[2022-04-15] MEDS: hydrOXYzine HCL 50 MG TABLET PO (07:54)
[2022-04-15] MEDS: cloNIDine HCL 0.1 MG TABLET PO (07:55)
[2022-04-15] MEDS: HaloperidoL 5 MG TABLET PO (07:55)
[2022-04-15] MEDS: OLANZapine 2.5 MG TABLET PO (10:46)
[2022-04-15] MEDS: LORazepam 1 MG TABLET PO (11:23)
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
[2022-04-15] MEDS: LORazepam 0.5 MG TABLET PO (14:50)
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
[2022-04-16] MEDS: hydrOXYzine HCL 50 MG TABLET PO (04:07)
[2022-04-16] MEDS: OLANZapine 2.5 MG TABLET PO (04:07)
[2022-04-16] MEDS: LORazepam 1 MG TABLET PO (04:07)
[2022-04-16 08:00] VITALS: BP 129/74; PULSE 93; TEMP 36.5; O2SAT 98
[2022-04-16] MEDS: LORazepam 0.5 MG TABLET PO ×2 (08:21→14:33)
[2022-04-16] MEDS: HaloperidoL 5 MG TABLET PO (08:21)
[2022-04-16] MEDS: diphenhydrAMINE HCL 25 MG CAPSULE 50 MG PO (11:55)
[2022-04-16] MEDS: Milk of Magnesia 30 ML ORAL.SUSP PO (13:38)
[2022-04-16] MEDS: Acetaminophen 325 MG TABLET 650 MG PO (13:50)
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
--- NOTE | 2022-04-17 08:40 | HO.PM.IMPN ---
Subjective Subjective Date of Service: 04/17/22 Interval History: rapid response called for patient in shower essentially not responding. When arrived, patient was breathing easy sats and vital signs within normal limits however patient flaccid. Patient assisted back to wheelchair and taken back to her room and placed on the bed. Blood sugar vital signs and room air sats all acceptable. patient beginning to respond after being placed back in bed Review of Systems unable to obtain Physical Exam Vital Signs: Vital Signs: Last Vital Signs Temp 97.7 F 04/16/22 08:00 Pulse 93 04/16/22 08:00 Resp 16 04/15/22 07:45 BP 129/74 04/16/22 08:00 Pulse Ox 98 04/16/22 08:00 O2 Del Method 04/16/22 08:00 Const: Other: awake; not responding. Will open eyes in flutter eyelids Resp: Other: clear to auscultation bilaterally no rales rhonchi or wheezes Cardio: Other: no S4; positive S1-S2; no S3 murmurs rubs or gallops GI: Other: soft nontender nondistended normoactive bowel sounds. No acute peritoneal signs Neuro: Other: cranial nerves 2-12 appear intact as able to assess. Neuro exam is difficult at this time. Patient was able to assist with transfer back to her bed Extrem: Other: no edema bilaterally Objective Data Active Medications Acetaminophen (Acetaminophen 325 Mg Tablet) 650 mg PO Q6H PRN PRN Reason: Headache/Pain Mild Scale (1-3) Last Admin: 04/16/22 13:50 Dose: 650 mg Documented By: ZANA Al Hydroxide/Mg Hydroxide (Magnesium Hydrox/Alum Hydrox 30 Ml Oral.Susp) 30 ml PO Q6H PRN PRN Reason: Heartburn/Nausea Clonidine HCl (Clonidine Hcl 0.1 Mg Tablet) 0.1 mg PO Q4H PRN; Protocol PRN Reason: anxiety Last Admin: 04/15/22 07:55 Dose: 0.1 mg Documented By: WARNER Diphenhydramine HCl (Diphenhydramine Hcl 25 Mg Capsule) 50 mg PO Q4H PRN PRN Reason: anxiety or allergic Sx Last Admin: 04/16/22 11:55 Dose: 50 mg Documented By: ZANA Haloperidol (Haloperidol 5 Mg Tablet) 5 mg PO BID ENRIKE Last Admin: 04/16/22 21:59 Dose: Not Given Documented By: ANGEL LUIS Non-Admin Reason: Patient Refused Lorazepam (Lorazepam 0.5 Mg Tablet) 0.5 mg PO TID [facility] Last Admin: 04/16/22 21:59 Dose: Not Given Documented By: ANGEL LUIS Non-Admin Reason: Patient Refused Lorazepam (Lorazepam 1 Mg Tablet) 1 mg PO Q6H PRN PRN Reason: anxiety/restlessness Last Admin: 04/16/22 04:07 Dose: 1 mg Documented By: ANGEL LUIS Magnesium Hydroxide (Milk Of Magnesia 30 Ml Oral.Susp) 30 ml PO DAILY PRN PRN Reason: Constipation Last Admin: 04/16/22 13:38 Dose: 30 ml Documented By: ZANA Melatonin (Melatonin 3 Mg Tablet) 9 mg PO BEDTIME [facility] Last Admin: 04/16/22 21:59 Dose: Not Given Documented By: ANGEL LUIS Non-Admin Reason: Patient Refused Olanzapine (Olanzapine 5 Mg Tablet) 5 mg PO BEDTIME [facility] Last Admin: 04/16/22 21:59 Dose: Not Given Documented By: ANGEL LUIS Non-Admin Reason: Patient Refused Olanzapine (Olanzapine 2.5 Mg Tablet) 2.5 mg PO Q4H PRN PRN Reason: anxiety/agitation Last Admin: 04/16/22 04:07 Dose: 2.5 mg Documented By: ANGEL LUIS Labs 04/13/22 08:32 Assessment and Plan (1) Schizoaffective disorder, bipolar type: Status: Acute (2) PTSD (post-traumatic stress disorder): Status: Acute Assessment and Plan: 36-year-old female with history of schizoaffective disorder and PTSD admitted to adult psych [facility]; became flaccid in shower and not responding to verbal stimuli. Did respond to mild sternal rub. Was able to transfer into wheelchair and subsequently into bed. All vital signs normal. At end of episode patient was beginning to open eyes and track. At this point in time, I do not believe there is anything acutely medically and will continue with serial exams throughout the day. At this time I do not see the need for laboratory or radiological investigation however as clinical course unfolds, this may change. Will follow along today. Time Spent With Patient Time: Total time managing care of this patient today ____ minutes. Quality Stroke Does the patient have a stroke diagnosis?: No VTE Prior VTE?: No VTE Risk Level:: Medical - low VTE Device Contraindication: Treatment Not Indicated VTE Drug Contraindication: Treatment Not Indicated
[2022-04-17 08:42] LABS: Glucose, Whole Blood 113 mg/dL (60-115)
--- NOTE | 2022-04-17 08:56 | PC.NURSE ---
Addendum entered by Deepthi Russ RN 04/17/22 09:11: Per Dr. Ruiz, pt will be on close observations until pt becomes responsive to verbal stimuli. Original Note: At 0810, pt rang the call fernández while she was in the shower. When RN's approached her, pt had her eyes closed and was not responding to questions. Pt's eyes began to flutter and her upper extremities began convulsing for a few seconds. Pt's body would then relax for a few minutes before convulsing for a few seconds again. Vitals 149/98, 119, O2 95%, POC 113. Rapid response was called, pt was transported to her room via wheelchair. Pt was evaluated by Dr. Slater who did not have any additional recommendations at this time. Pt is currently laying down with eyes closed, pt not responding to questions.
[2022-04-17 09:30] VITALS: BP 112/57; PULSE 80; RESP 22; O2SAT 100
[2022-04-17] MEDS: LORazepam 0.5 MG TABLET PO ×2 (10:26→20:31)
[2022-04-17] MEDS: LORazepam 1 MG TABLET PO (10:26)
[2022-04-17] MEDS: HaloperidoL 5 MG TABLET PO ×2 (10:26→20:31)
[2022-04-17] MEDS: Acetaminophen 325 MG TABLET 650 MG PO (12:54)
--- NOTE | 2022-04-17 14:45 | HO.PSYCHPN ---
Subjective Subjective Date of Service: 04/17/22 Reason For Visit: SI/Psychosis Interim History: seen several times today, the first few when pt was having pseudoseizures. pt was noted to extend her legs and arms, trembling, and yell out. no incontinence, tongue-biting, post-ictal confusion. no tonic-clonic movements. pt divulged in the course of interactions, as she became more responsive after time, that she wanted her new roommate gone (roommate had arrived in the room this morning, around 0800, when pt's behaviors began). pt stated roommate is a drug addict and she did not want to be in with her; she added she knew her from some time in group home. roommate was moved, pt's behaviors stopped. seen later, calm, cooperative, saying she did not recall what had happened, asking MD to fillin details. MD educated her about pseudoseziures per staff, less bizarre yesterday. meds/meals compliant. attend groups. planning to DC . sleeping. slept from dinnertime to 0430 and missed HS meds. Mental Status Exam Mental Status Exam Narrative: Appearance: casually groomed, fair hygiene in NAD Behavior: calm, cooperative psychomotor: general PMR Speech: clear, some delay in response, Thought process: slowed Thought content: no delusions or paranoia expressed Mood: anxious Affect: blunted SI: none expressed HI: none expressed VH/AH: none expressed Insight/judgment: impaired Memory/cog: alert, oriented x 3. Diagnostics Vital Signs (24Hr): Vital Signs - 24 hr 04/17/22 09:30 Pulse Rate 80 Respiratory Rate 22 H Blood Pressure 112/57 L Pulse Oximetry 100 Oxygen Delivery Method Room Air Labs 04/13/22 08:32 Labs: Laboratory Results - last 48 hr 04/17/22 08:34 POC Glucose 113 Medications Medications Current Medications Acetaminophen (Acetaminophen 325 Mg Tablet) 650 mg PO Q6H PRN PRN Reason: Headache/Pain Mild Scale (1-3) Last Admin: 04/17/22 12:54 Dose: 650 mg Al Hydroxide/Mg Hydroxide (Magnesium Hydrox/Alum Hydrox 30 Ml Oral.Susp) 30 ml PO Q6H PRN PRN Reason: Heartburn/Nausea Clonidine HCl (Clonidine Hcl 0.1 Mg Tablet) 0.1 mg PO Q4H PRN; Protocol PRN Reason: anxiety Last Admin: 04/15/22 07:55 Dose: 0.1 mg Diphenhydramine HCl (Diphenhydramine Hcl 25 Mg Capsule) 50 mg PO Q4H PRN PRN Reason: anxiety or allergic Sx Last Admin: 04/16/22 11:55 Dose: 50 mg Haloperidol (Haloperidol 5 Mg Tablet) 5 mg PO BID ENRIKE Last Admin: 04/17/22 10:26 Dose: 5 mg Lorazepam (Lorazepam 1 Mg Tablet) 1 mg PO Q6H PRN PRN Reason: anxiety/restlessness Last Admin: 04/17/22 10:26 Dose: 1 mg Lorazepam (Lorazepam 0.5 Mg Tablet) 0.5 mg PO BID ENRIKE Magnesium Hydroxide (Milk Of Magnesia 30 Ml Oral.Susp) 30 ml PO DAILY PRN PRN Reason: Constipation Last Admin: 04/16/22 13:38 Dose: 30 ml Melatonin (Melatonin 3 Mg Tablet) 9 mg PO BEDTIME [facility] Last Admin: 04/16/22 21:59 Dose: Not Given Olanzapine (Olanzapine 5 Mg Tablet) 5 mg PO BEDTIME [facility] Last Admin: 04/16/22 21:59 Dose: Not Given Olanzapine (Olanzapine 2.5 Mg Tablet) 2.5 mg PO Q4H PRN PRN Reason: anxiety/agitation Last Admin: 04/16/22 04:07 Dose: 2.5 mg Allergies Allergies Allergy/AdvReac Type Severity Reaction Status Date / Time dog dander [DOG DANDER] Allergy Intermediate ITCHY EYES Verified 02/28/22 08:59 pollen extracts [POLLEN] Allergy Intermediate STUFFY, Verified 02/28/22 08:59 ITCHY EYES Assessment & Plan Assessment & Plan (1) Schizoaffective disorder, bipolar type: Status: Acute Code(s): F25.0 - Schizoaffective disorder, bipolar type (2) PTSD (post-traumatic stress disorder): Status: Acute Code(s): F43.10 - Post-traumatic stress disorder, unspecified Plan 04/13: Restart Haldol 5 mg b.i.d.; may consolidate to 10 mg q.h.s. Hydroxyzine 50 mg for anxiety. Clonidine 0.1 mg q.4h p.r.n. for anxiety. Will order STD, chlamydia gonorrhea check as patient miss trusts her partner. Reviewed labs from [facility]: UDS unremarkable; lytes, BUN/creatinine, LFTs, within normal limits; negative test; x-ray left ribs no fracture Patient has said she got head CT but account underwriter could not find results 04/14:? Patient anxious psychotic with combined PTSD symptoms.? Encourage med compliance needs much reassurance Zyprexa p.r.n. added to Haldol 04/16:? DC hydroxyzine, start benadryl pr pt request.? DC trazodone, start melatonin per pt request.? bizarre behaviors over the weekend. 04/17: several pseudoseizures this morning with secondary gain of losing her roommate, which was accomplished. otherwise calm and cooperative. still planning to discharge tomorrow. aftercare in place. Reason for contiued inpatient stay Substantial Risk for: inability to function and rapid decompensation Time Spent With Patient Time: Total time managing care of this patient today _35___ minutes.
[2022-04-17] MEDS: OLANZapine 5 MG TABLET PO (20:31)
[2022-04-17] MEDS: Melatonin 3 MG TABLET 9 MG PO (20:31)
[2022-04-18 06:00] VITALS: BP 111/60; PULSE 76; RESP 18; TEMP 36.6; O2SAT 100
[2022-04-18] MEDS: OLANZapine 2.5 MG TABLET PO (08:18)
[2022-04-18] MEDS: HaloperidoL 5 MG TABLET PO (08:18)
[2022-04-18] MEDS: LORazepam 0.5 MG TABLET PO (08:18)
[2022-04-18] MEDS: LORazepam 1 MG TABLET PO (10:00)
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
== END 2022-04-18 11:45 | disposition home or self-care (01) | DRG 750 ==
PROVIDERS: Psychiatry & Neurology Psychiatry; Admitting Provider Psychiatry & Neurology Psychiatry; Visit Provider Psychiatry & Neurology Psychiatry
DX: F25.0 Schizoaffective disorder, bipolar type (principal); R45.851 Suicidal ideations; N91.5 Oligomenorrhea, unspecified; R73.03 Prediabetes; F43.12 Post-traumatic stress disorder, chronic; Z79.899 Other long term (current) drug therapy; Z87.891 Personal history of nicotine dependence
CPT/HCPCS: 0353U; 36415; 80053; 80061; 80076; 82607; 82746; 82947; 83036; 84439; 84443

== ENCOUNTER 2023-01-18 17:59 | Emergency (ER) | payer MEDICAID, OTHER, SELFPAY ==
[2023-01-18 18:21] VITALS: BP 136/82; BP 140/90; PULSE 89; PULSE 96; RESP 20; TEMP 36.1; O2SAT 96; O2SAT 98; BMI 32.3
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
--- NOTE | 2023-01-18 18:48 | MHC.EDTECH ---
pt refusing to be touched at this time. t/w is unable to obtain labs at this time. rn aware
[2023-01-18 20:21] LABS: Amphetamine Screen Urine Not Detected (Not Detect); Barbiturates, Urine Not Detected (Not Detect); Benzodiazepines Screen Urine Not Detected (Not Detect); Cannabinoid Screen Urine Not Detected (Not Detect); Cocaine Screen Urine POSITIVE (Not Detect); Fentanyl, urine Not Detected (Not Detect); Opiate Screen Urine Not Detected (Not Detect); Phencyclidine Screen Urine Not Detected (Not Detect)
[2023-01-18 20:47] LABS: COVID-19 Test Negative (Negative); IDNOW Serial# 08D9AD1C
[2023-01-19 09:15] LABS: Appearance Urine Cloudy; Color Urine Yellow; Glucose Urine UA Negative (Negative); Leukocyte Esterase Urine Negative (Negative); Nitrite Urine Negative (Negative); PH 5.5 (5.0-9.0); Specific Gravity - Urine <= 1.005 (1.005-1.025); Urine Blood Negative (Negative); Urine Ketones Negative (Negative); Urine Protein Negative (Neg-Trace)
[2023-01-19 09:20] LABS: Bacteria Urine 1+ (None Seen); Hyaline Casts Urine 0-2 /LPF (0-2); RBC Urine 0-2 /HPF (0-2); WBC Urine 0-5 /HPF (0-5)
[2023-01-19 10:16] VITALS: BP 136/91; PULSE 105; RESP 19; TEMP 36.1; O2SAT 96
--- NOTE | 2023-01-19 11:49 | PC.NURSE ---
Leah was OOB this shift and advocating to DC. No medications ordered or given. PT denies SI/HI/AVH. Belongings returned and PT discharged.
== END 2023-01-19 11:51 | disposition home or self-care (01) ==
PROVIDERS: Emergency Provider Emergency Medicine
DX: F25.0 Schizoaffective disorder, bipolar type (principal); F43.9 Reaction to severe stress, unspecified; Z87.891 Personal history of nicotine dependence; Z79.899 Other long term (current) drug therapy; Z11.52 Encounter for screening for COVID-19; Z20.822 Contact with and (suspected) exposure to COVID-19
CPT/HCPCS: 80307; 81001; 87635; 99284; S9485

== ENCOUNTER 2023-08-18 17:33 | Inpatient (IN) | payer MEDICAID, OTHER, SELFPAY ==
[2023-08-18 17:39] VITALS: BP 122/100; PULSE 90; O2SAT 98
[2023-08-18 18:13] VITALS: BP 127/72; PULSE 86; RESP 20; TEMP 36.3; O2SAT 98; BMI 29.6
[2023-08-18 18:16] VITALS: BP 127/72; PULSE 86; RESP 20; TEMP 36.3; O2SAT 98
--- NOTE | 2023-08-18 18:20 | PC.NURSE ---
PT BIBA on a voluntary basis for suicidal ideations with method of overdosing. Per report the patient recently used crack and heroin today, resulting in the SI. Patient is calm and cooperative with staff.
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
[2023-08-18 19:53] LABS: MANUAL DIFF FLAG NO
[2023-08-18 19:54] LABS: Basophils Absolute Auto 0.1 X10*3/uL (0.0-0.2); Basophils Percent Auto 0.8 % (0-2); Eosinophils Absolute Auto 0.1 X10*3/uL (0.0-0.4); Eosinophils Percent Auto 1.9 % (0-4); Hematocrit 37.2 % (37.0-47.0); Hemoglobin 12.4 g/dl (12.0-16.0); Imm Gran Abs Auto 0.01 X10*3/uL (0.00-0.03); Imm Gran Pct Auto 0.1 % (0.0-0.4); Lymphocytes Absolute Auto 3.4 X10*3/uL (1.2-4.9); Lymphocytes Percent Auto 45.1 % (20-40); Mean Corpuscular HGB Conc 33.3 g/dl (31.0-35.0); Mean Corpuscular Hemoglobin 26.5 pg (27.0-33.0); Mean Corpuscular Volume 79.5 fL (80.0-98.0); Mean Platelet Volume 9.7 fL (9.4-12.3); Monocytes Absolute Auto 0.3 X10*3/uL (0.1-1.2); Monocytes Percent Auto 4.3 % (2-11); Neutrophils Absolute Auto 3.6 x10*3/uL (2.0-8.3); Neutrophils Percent Auto 47.8 % (45-73); Platelet Count 321 X10*3/uL (160-400); Red Blood Count 4.68 X10*6/uL (4.20-5.50); White Blood Count 7.4 X10*3/uL (4.8-10.8)
[2023-08-18 20:27] LABS: Acetaminophen LAB < 3 mcg/mL (<30); Alanine Aminotransferase 16 U/L (0-31); Albumin Level 4.4 g/dL (3.5-5.0); Alkaline Phosphatase 64 U/L (39-117); Anion Gap 12 (12-20); Aspartate Amino Transferase 15 U/L (5-31); Bilirubin Total 0.2 mg/dL (0.0-1.0); Blood Urea Nitrogen 14 mg/dL (9-16); Calcium 9.8 mg/dL (8.4-10.2); Carbon Dioxide 22 mmol/L (22-29); Chloride 111 mmol/L (96-108); Creatinine Clr Calc Pharmacy 103.5; Estimated Glomerular Filt Rate > 60; Ethanol < 10 mg/dL; Glucose Random 125 mg/dL (60-115); Potassium 3.2 mmol/L (3.3-5.1); Salicylate < 5.0 mg/dL (15-30); Sodium 142 mmol/L (135-145); Total Protein 7.3 g/dL (6.5-8.0)
[2023-08-18 20:34] LABS: Appearance Urine Clear; Color Urine Dark Yellow; Glucose Urine UA Negative (Negative); Leukocyte Esterase Urine Negative (Negative); Nitrite Urine Negative (Negative); PH 5.5 (5.0-9.0); Specific Gravity - Urine 1.025 (1.005-1.025); UMIC TRIGGER UACC YES; Urine Blood Large (3+) (Negative); Urine Ketones Trace mg/dL (Negative); Urine Protein Trace mg/dL (Neg-Trace)
[2023-08-18 20:39] LABS: Bacteria Urine 1+ (None Seen); Hyaline Casts Urine 0-2 /LPF (0-2); RBC Urine >20 /HPF (0-2); Squamous Epithelial Cell Urine 0-2 /HPF (0-2); WBC Urine 0-5 /HPF (0-5)
[2023-08-18 20:44] LABS: Amphetamine Screen Urine Not Detected (Not Detect); Barbiturates, Urine Not Detected (Not Detect); Benzodiazepines Screen Urine POSITIVE (Not Detect); Buprenorphine Scr Not Detected (Not Detect); Cannabinoid Screen Urine Not Detected (Not Detect); Cocaine Screen Urine POSITIVE (Not Detect); Fentanyl, urine Not Detected (Not Detect); Methadone Screen, Urine Not Detected (Not Detect); Opiate Screen Urine Not Detected (Not Detect); Oxycodone Screen Urine Not Detected (Not Detect); Phencyclidine Screen Urine Not Detected (Not Detect)
[2023-08-18] MEDS: QUEtiapine Fumarate 25 MG TABLET PO (23:01)
[2023-08-18] MEDS: Gabapentin 400 MG CAPSULE 800 MG PO (23:01)
[2023-08-18] MEDS: LORazepam 1 MG TABLET PO (23:01)
--- NOTE | 2023-08-19 | ECG_ITS ---
Test Reason : CHECK FOR PROLONG QT Blood Pressure : / mmHG Vent. Rate : 070 BPM Atrial Rate : 070 BPM P-R Int : 146 ms QRS Dur : 074 ms QT Int : 366 ms P-R-T Axes : 067 083 059 degrees QTc Int : 395 ms Normal sinus rhythm with sinus arrhythmia Nonspecific T wave abnormality Abnormal ECG When compared to the previous EKG of No significant changes seen Referred By: Johan Gonsalez Electronically Signed By:Yony Ramos
[2023-08-19 06:09] VITALS: BP 103/63; PULSE 78; TEMP 36.6; O2SAT 98
--- NOTE | 2023-08-19 10:19 | MHC.CARE ---
Patient evaluated by the CARE Team, disposition determined to be inpatient psychiatric treatment. ED provider, Dr. Gonsalez updated
[2023-08-19] MEDS: Atorvastatin Calcium 20 MG TABLET PO (10:28)
[2023-08-19] MEDS: Gabapentin 400 MG CAPSULE 800 MG PO ×3 (10:28→21:16)
[2023-08-19] MEDS: LORazepam 1 MG TABLET PO ×2 (10:28→21:16)
[2023-08-19 13:18] LABS: Anion Gap 14 (12-20); Blood Urea Nitrogen 16 mg/dL (9-16); Calcium 9.6 mg/dL (8.4-10.2); Carbon Dioxide 23 mmol/L (22-29); Chloride 108 mmol/L (96-108); Creatinine Clr Calc Pharmacy 113.2; Estimated Glomerular Filt Rate > 60; Glucose Random 118 mg/dL (60-115); Potassium 3.7 mmol/L (3.3-5.1); Sodium 141 mmol/L (135-145)
[2023-08-19 15:38] VITALS: BP 112/63; PULSE 79; RESP 18; TEMP 36.8; O2SAT 98
[2023-08-19 15:40] VITALS: BMI 31.8
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
[2023-08-19] MEDS: cloNIDine HCL 0.1 MG TABLET PO (17:25)
[2023-08-19] MEDS: HaloperidoL 5 MG TABLET PO (17:25)
[2023-08-19] MEDS: Baclofen 10 MG TABLET PO (17:25)
[2023-08-19] MEDS: hydrOXYzine HCL 25 MG TABLET PO (17:26)
[2023-08-19 17:28] VITALS: BP 116/78; PULSE 78; RESP 18
[2023-08-19 20:00] VITALS: BP 114/69; PULSE 86; RESP 18; TEMP 36.7; O2SAT 98
[2023-08-19] MEDS: QUEtiapine Fumarate 25 MG TABLET PO (21:16)
[2023-08-20 08:00] VITALS: BP 104/57; PULSE 82; RESP 18; TEMP 36.7; O2SAT 97
[2023-08-20] MEDS: Gabapentin 400 MG CAPSULE 800 MG PO ×3 (08:34→21:00)
[2023-08-20] MEDS: Atorvastatin Calcium 20 MG TABLET PO (08:34)
[2023-08-20] MEDS: LORazepam 1 MG TABLET PO ×2 (08:34→20:59)
[2023-08-20 09:24] LABS: Estimated Average Glucose 126 mg/dL
[2023-08-20 09:31] LABS: Cholesterol 204 mg/dL (<200); HDL Cholesterol 40 mg/dL (>40); LDL Cholesterol Calculated 96 mg/dL (<100); Magnesium 1.7 mg/dL (1.6-2.6); Triglycerides 344 mg/dL (<150)
[2023-08-20 09:45] LABS: Free T4 (Free Thyroxine) 0.86 ng/dL (0.71-1.85); Thyroid Stimulating Hormone 1.26 uIU/mL (0.32-4.0)
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
[2023-08-20 11:36] LABS: Folate 4.8 ng/mL (> or = 4.0); Vitamin B12 232 pg/mL (200-900)
--- NOTE | 2023-08-20 12:31 | MHC.RECOVRN ---
Met with pt, along with social work job titles, after Addiction Consult placed for ?methadone start. Pt had presented to the ED due to SI with method of overdosing. Subsequently, pt admitted to . Pt sitting, awake, alert, easily engages in conversation, appears slightly diaphoretic. Pt reports irritability and opioid cravings. Pt reports heroin/fentanyl use, 3-4 bags daily as well as $60-70 cocaine, INH. Pt reports she sprinkles half a bag over the cocaine. Pt reports last use 2-3 days ago. Of note, pts UDS positive for cocaine and benzodiazepines. Pt reports one ATS admission, [facility], on 07/31. Pt reports while there she was receiving 10 mg methadone daily. Pt has documented hx OUD, was seen at the [facility] in 2021 and initiated Suboxone. Pt reports she has been on Suboxone 4 times, through [facility], [facility], [facility], and an unknown place in [place]. Per [facility], pts last Suboxone rx was 10/31/2021, 12 mg films, 8 day supply. Pt reports one overdose approx 1.5 months ago. Discussed Suboxone vs methadone; pt agreeable to Suboxone to address cravings and as recurrence prevention. Pt denies questions or concerns at this time. Discussed with provider, plan to administer 2 mg Suboxone.
[2023-08-20] MEDS: Buprenorphine/Naloxone 2/0.5mg FILM 1 FILM SUBLINGUAL (13:45)
[2023-08-20] MEDS: Nicotine Polacrilex 2 MG GUM 4 MG BUCCAL ×2 (15:50→18:53)
[2023-08-20] MEDS: Baclofen 10 MG TABLET PO (15:50)
--- NOTE | 2023-08-20 15:50 | MHC.RECOVRN ---
Met with pt to follow up after receiving 2 mg Suboxone. Pt on phone, awake, alert, easily engages in conversation. Reports feeling better. Pt would like to continue medication titration. Discussed with provider, plan to administer 4 mg film in the morning and reassess.
[2023-08-20] MEDS: hydrOXYzine HCL 25 MG TABLET PO (18:53)
[2023-08-20 20:00] VITALS: BP 113/67; PULSE 84; RESP 17; TEMP 36.8; O2SAT 98
[2023-08-20] MEDS: HaloperidoL 5 MG TABLET PO (20:59)
[2023-08-20] MEDS: traZODone HCL 50 MG TABLET PO (20:59)
[2023-08-20] MEDS: QUEtiapine Fumarate 25 MG TABLET PO (21:00)
[2023-08-21 08:00] VITALS: BP 112/68; PULSE 82; RESP 18; TEMP 36.5; O2SAT 98
[2023-08-21] MEDS: HaloperidoL 5 MG TABLET PO ×2 (08:21→21:08)
[2023-08-21] MEDS: Gabapentin 400 MG CAPSULE 800 MG PO ×3 (08:21→21:07)
[2023-08-21] MEDS: LORazepam 1 MG TABLET PO ×2 (08:21→20:50)
[2023-08-21] MEDS: Multivitamin TABLET 1 TAB PO (08:21)
[2023-08-21] MEDS: Folic Acid 1 MG TABLET PO (08:21)
[2023-08-21] MEDS: Atorvastatin Calcium 20 MG TABLET PO (08:21)
[2023-08-21] MEDS: Thiamine HCL 100 MG TABLET PO (08:21)
[2023-08-21] MEDS: Buprenorphine/Naloxone 4/1 mg FILM 1 FILM SUBLINGUAL (08:51)
[2023-08-21] MEDS: hydrOXYzine HCL 25 MG TABLET PO (09:56)
[2023-08-21] MEDS: Baclofen 10 MG TABLET PO (09:56)
[2023-08-21] MEDS: cloNIDine HCL 0.1 MG TABLET PO (09:56)
[2023-08-21] MEDS: Nicotine 21 MG PATCH.TD24 TRANSDERMA (09:56)
[2023-08-21] MEDS: Nicotine Polacrilex 2 MG GUM 4 MG BUCCAL (09:56)
--- NOTE | 2023-08-21 14:22 | MHC.RECOVRN ---
Met with pt on M5 to follow up after receiving 4 mg Suboxone this morning. Pt laying in bed, sleeping, wakes to voice. Appears drowsy, reporting being really itchy. Discussed with pt decreasing Suboxone to 2 mg BID, pt verbalizes understanding and is in agreement. Pt denies questions or concerns for t/w. Discussed with provider. Plan for Suboxone 2 mg BID.
[2023-08-21] MEDS: Nicotine Polacrilex Lozenge 4 MG LOZENGE BUCCAL (15:57)
[2023-08-21] MEDS: Ondansetron ODT 4 MG TAB.RAPDIS TRANSLINGU (18:25)
[2023-08-21 20:00] VITALS: BP 126/77; PULSE 89; RESP 18; TEMP 36.6; O2SAT 98
[2023-08-21] MEDS: QUEtiapine Fumarate 25 MG TABLET PO (20:17)
[2023-08-21] MEDS: traZODone HCL 50 MG TABLET PO (21:08)
[2023-08-21] MEDS: Buprenorphine/Naloxone 2/0.5mg TAB.SUBL 1 TAB SUBLINGUAL (21:08)
[2023-08-22 07:00] VITALS: BMI 32.8
[2023-08-22 08:00] VITALS: BP 108/59; PULSE 90; RESP 18; TEMP 36.4; O2SAT 97
[2023-08-22] MEDS: Multivitamin TABLET 1 TAB PO (08:20)
[2023-08-22] MEDS: HaloperidoL 5 MG TABLET PO ×2 (08:20→13:09)
[2023-08-22] MEDS: Atorvastatin Calcium 20 MG TABLET PO (08:20)
[2023-08-22] MEDS: Gabapentin 400 MG CAPSULE 800 MG PO ×3 (08:20→19:46)
[2023-08-22] MEDS: LORazepam 1 MG TABLET PO ×2 (08:20→19:45)
[2023-08-22] MEDS: Folic Acid 1 MG TABLET PO (08:20)
[2023-08-22] MEDS: Thiamine HCL 100 MG TABLET PO (08:20)
[2023-08-22] MEDS: Buprenorphine/Naloxone 2/0.5mg TAB.SUBL 1 TAB SUBLINGUAL ×2 (08:30→19:45)
[2023-08-22] MEDS: Nicotine 21 MG PATCH.TD24 TRANSDERMA (08:31)
[2023-08-22] MEDS: Nicotine Polacrilex 2 MG GUM 4 MG BUCCAL ×2 (08:33→21:15)
[2023-08-22 09:06] VITALS: BP 108/59
[2023-08-22] MEDS: cloNIDine HCL 0.1 MG TABLET PO ×2 (09:06→18:11)
[2023-08-22] MEDS: hydrOXYzine HCL 25 MG TABLET PO (10:30)
[2023-08-22] MEDS: Nicotine Polacrilex Lozenge 4 MG LOZENGE BUCCAL (13:09)
[2023-08-22] MEDS: Baclofen 10 MG TABLET PO (14:11)
[2023-08-22] MEDS: Haloperidol Decanoate 50 MG/ML VIAL 100 MG IM (15:16)
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
[2023-08-22 18:11] VITALS: BP 113/64
[2023-08-22] MEDS: traZODone HCL 50 MG TABLET PO (19:45)
[2023-08-22] MEDS: QUEtiapine Fumarate 25 MG TABLET PO (19:45)
[2023-08-22 20:00] VITALS: BP 122/65; PULSE 77; RESP 18; O2SAT 98
[2023-08-23] MEDS: Albuterol Sulfate 90 MCG 8 GM INHALER 2 PUFF INHALE ×2 (03:07→16:34)
[2023-08-23 08:00] VITALS: BP 110/64; PULSE 93; RESP 20; TEMP 36.4; O2SAT 98
[2023-08-23] MEDS: Atorvastatin Calcium 20 MG TABLET PO (08:29)
[2023-08-23] MEDS: Multivitamin TABLET 1 TAB PO (08:30)
[2023-08-23] MEDS: Gabapentin 400 MG CAPSULE 800 MG PO ×3 (08:30→21:00)
[2023-08-23] MEDS: Thiamine HCL 100 MG TABLET PO (08:30)
[2023-08-23] MEDS: Folic Acid 1 MG TABLET PO (08:30)
[2023-08-23] MEDS: Buprenorphine/Naloxone 2/0.5mg TAB.SUBL 1 TAB SUBLINGUAL ×2 (08:31→21:01)
[2023-08-23] MEDS: Nicotine 21 MG PATCH.TD24 TRANSDERMA (08:54)
[2023-08-23] MEDS: LORazepam 1 MG TABLET PO ×2 (08:55→21:00)
[2023-08-23] MEDS: Nicotine Polacrilex 2 MG GUM 4 MG BUCCAL (09:28)
[2023-08-23 12:12] VITALS: BP 114/69
[2023-08-23] MEDS: Baclofen 10 MG TABLET PO (12:12)
[2023-08-23] MEDS: cloNIDine HCL 0.1 MG TABLET PO (12:12)
--- NOTE | 2023-08-23 13:22 | MHC.RECOVRN ---
Met with pt in 509 to follow up after receiving Suboxone 2 mg BID. Pt laying in bed, eyes closed, wakes to voice. Pt reports dose is going well. Continues to report stimulant cravings, utilizing Baclofen. Pt denies questions or concerns for t/w.
[2023-08-23] MEDS: hydrOXYzine HCL 25 MG TABLET PO (13:57)
[2023-08-23] MEDS: QUEtiapine Fumarate 25 MG TABLET PO ×2 (13:57→21:01)
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
[2023-08-23 20:00] VITALS: BP 107/68; PULSE 97; RESP 16; TEMP 36.4; O2SAT 96
[2023-08-23] MEDS: traZODone HCL 50 MG TABLET PO (21:00)
[2023-08-24 08:00] VITALS: BP 117/75; PULSE 82; RESP 18; TEMP 36.5; O2SAT 97
[2023-08-24] MEDS: LORazepam 1 MG TABLET PO ×2 (08:19→20:16)
[2023-08-24] MEDS: Multivitamin TABLET 1 TAB PO (08:19)
[2023-08-24] MEDS: Folic Acid 1 MG TABLET PO (08:19)
[2023-08-24] MEDS: Atorvastatin Calcium 20 MG TABLET PO (08:19)
[2023-08-24] MEDS: Gabapentin 400 MG CAPSULE 800 MG PO ×3 (08:19→20:16)
[2023-08-24] MEDS: Thiamine HCL 100 MG TABLET PO (08:19)
[2023-08-24] MEDS: Albuterol Sulfate 90 MCG 8 GM INHALER 2 PUFF INHALE (08:23)
[2023-08-24] MEDS: Buprenorphine/Naloxone 2/0.5mg TAB.SUBL 1 TAB SUBLINGUAL ×2 (09:24→20:35)
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
[2023-08-24] MEDS: QUEtiapine Fumarate 25 MG TABLET PO ×2 (14:19→20:16)
[2023-08-24] MEDS: hydrOXYzine HCL 25 MG TABLET PO (16:47)
[2023-08-24 20:00] VITALS: BP 148/81; PULSE 94; RESP 16; TEMP 36.3; O2SAT 97
[2023-08-25 08:00] VITALS: BP 126/79; PULSE 84; RESP 18; TEMP 37.1; O2SAT 97
[2023-08-25] MEDS: Multivitamin TABLET 1 TAB PO (08:06)
[2023-08-25] MEDS: Atorvastatin Calcium 20 MG TABLET PO (08:06)
[2023-08-25] MEDS: Thiamine HCL 100 MG TABLET PO (08:07)
[2023-08-25] MEDS: LORazepam 1 MG TABLET PO ×2 (08:07→20:05)
[2023-08-25] MEDS: Folic Acid 1 MG TABLET PO (08:07)
[2023-08-25] MEDS: Gabapentin 400 MG CAPSULE 800 MG PO ×3 (08:07→20:05)
[2023-08-25] MEDS: Buprenorphine/Naloxone 2/0.5mg TAB.SUBL 1 TAB SUBLINGUAL ×2 (08:37→20:06)
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
[2023-08-25 12:11] VITALS: BP 117/73
[2023-08-25] MEDS: cloNIDine HCL 0.1 MG TABLET PO (12:11)
[2023-08-25] MEDS: HaloperidoL 5 MG TABLET PO (12:12)
[2023-08-25] MEDS: Albuterol Sulfate 90 MCG 8 GM INHALER 2 PUFF INHALE (12:13)
[2023-08-25] MEDS: QUEtiapine Fumarate 25 MG TABLET PO ×2 (16:25→20:05)
[2023-08-25 20:00] VITALS: BP 101/68; PULSE 89; TEMP 36.3
[2023-08-25] MEDS: traZODone HCL 50 MG TABLET PO (20:04)
[2023-08-26 08:00] VITALS: BP 105/59; PULSE 82; RESP 16; TEMP 36.4; O2SAT 98
[2023-08-26] MEDS: Gabapentin 400 MG CAPSULE 800 MG PO ×3 (09:00→20:47)
[2023-08-26] MEDS: Nicotine 21 MG PATCH.TD24 TRANSDERMA (09:33)
[2023-08-26] MEDS: LORazepam 1 MG TABLET PO ×2 (09:34→20:48)
[2023-08-26] MEDS: Atorvastatin Calcium 20 MG TABLET PO (09:34)
[2023-08-26] MEDS: Folic Acid 1 MG TABLET PO (09:34)
[2023-08-26] MEDS: Thiamine HCL 100 MG TABLET PO (09:34)
[2023-08-26] MEDS: Nicotine Polacrilex 2 MG GUM 4 MG BUCCAL (09:34)
[2023-08-26] MEDS: Multivitamin TABLET 1 TAB PO (09:34)
[2023-08-26] MEDS: Buprenorphine/Naloxone 2/0.5mg TAB.SUBL 1 TAB SUBLINGUAL ×2 (09:34→20:48)
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
[2023-08-26] MEDS: QUEtiapine Fumarate 25 MG TABLET PO ×3 (11:47→20:48)
[2023-08-26] MEDS: Baclofen 10 MG TABLET PO (11:47)
[2023-08-26] MEDS: hydrOXYzine HCL 25 MG TABLET PO ×2 (11:48→16:35)
[2023-08-26 13:59] VITALS: BP 112/78
[2023-08-26] MEDS: HaloperidoL 5 MG TABLET PO (13:59)
[2023-08-26] MEDS: cloNIDine HCL 0.1 MG TABLET PO (13:59)
[2023-08-26 20:00] VITALS: BP 121/69; PULSE 92; TEMP 36.5; O2SAT 97
[2023-08-26] MEDS: traZODone HCL 50 MG TABLET PO (20:48)
[2023-08-27] MEDS: Baclofen 10 MG TABLET PO (02:16)
[2023-08-27 08:45] VITALS: BP 124/58; PULSE 89; RESP 16; TEMP 36.5; O2SAT 97
[2023-08-27] MEDS: Gabapentin 400 MG CAPSULE 800 MG PO (08:54)
[2023-08-27] MEDS: Atorvastatin Calcium 20 MG TABLET PO (08:54)
[2023-08-27] MEDS: Buprenorphine/Naloxone 2/0.5mg TAB.SUBL 1 TAB SUBLINGUAL (08:54)
[2023-08-27] MEDS: LORazepam 1 MG TABLET PO (08:54)
[2023-08-27] MEDS: Thiamine HCL 100 MG TABLET PO (08:54)
[2023-08-27] MEDS: Folic Acid 1 MG TABLET PO (08:54)
[2023-08-27] MEDS: Multivitamin TABLET 1 TAB PO (08:54)
[2023-08-27] MEDS: hydrOXYzine HCL 25 MG TABLET PO (09:58)
[2023-08-27] MEDS: Nicotine Polacrilex 2 MG GUM 4 MG BUCCAL (09:58)
[2023-08-27 11:15] VITALS: BP 114/70
[2023-08-27] MEDS: cloNIDine HCL 0.1 MG TABLET PO (11:15)
--- NOTE | 2023-08-27 15:54 | PM.PSYDC ---
DS: Providers Provider Date of Service: 08/27/23 Date of admission: 08/19/23 12:33 Date of discharge: 08/27/23 Primary care physician: Edwige Chang MD Admitting clinician: Melva Nicholas Attending physician on admission: Oren Baird Consults: 08/19/23 16:46 Addiction Medicine Routine Consulting Provider: Addiction Covering Reason for consultation: Per policy 08/19/23 17:24 Addiction Medicine Routine Consulting Provider: Addiction Covering Reason for consultation: Recent brief [facility] admit-Methadone start Has provider been notified: No Attending physician on discharge: Oren Baird Discharging clinician: Melva Nicholas DS: Diagnosis Discharge Diagnosis (1) PTSD (post-traumatic stress disorder): Status: Acute (2) Schizoaffective disorder, bipolar type: Status: Acute DS: Medications Discharge Medications Home Medications: Previous Rx's ?Medication ?Instructions ?Recorded albuterol sulfate 90 mcg/actuation 2 puff inhalation RQ4H PRN 08/27/23 aerosol inhaler (Ventolin HFA) Shortness Of Breath #1 inhaler atorvastatin 20 mg tablet 20 mg PO DAILY #30 tabs 08/27/23 buprenorphine 2 mg-naloxone 0.5 mg 1 tab sublingual BID #4 tabs 08/27/23 sublingual tablet folic acid 1 mg tablet 1 mg PO DAILY #30 tabs 08/27/23 gabapentin 800 mg tablet 800 mg PO TID #90 tabs 08/27/23 haloperidol 5 mg tablet 5 mg PO BID #60 tabs 08/27/23 haloperidol decanoate 50 mg/mL 100 mg (2 mL) IM Q28D #2 mL 08/27/23 intramuscular solution lorazepam 1 mg tablet 1 mg PO BID #14 tabs 08/27/23 multivitamin (Daily-Karen tablet) 1 tab PO DAILY #30 tabs 08/27/23 nicotine (polacrilex) 2 mg gum 4 mg buccal Q2H PRN Nicotine 08/27/23 Cravings #60 ea nicotine (polacrilex) 4 mg buccal 4 mg buccal Q2H PRN Nicotine 08/27/23 lozenge Cravings #60 ea nicotine 21 mg/24 hr daily 21 mg transdermal DAILY PRN 08/27/23 transdermal patch Nicotine Cravings #30 ea quetiapine 25 mg tablet 25 mg PO BEDTIME #30 tabs 08/27/23 thiamine mononitrate (vit B1) 100 100 mg PO DAILY #30 tabs 08/27/23 mg tablet trazodone 50 mg tablet 50 mg PO BEDTIME MRX1 PRN Insomnia 08/27/23 #60 tabs Mental Status Exam Mental Status Exam Patient Appearance: Appropriate Patient Orientation: Person, Place, Time and Situation Level of Consciousness: Alert Patient Behavior: Appropriate, Talkative, Cooperative and Good Eye Contact Mood Description: Anxious and Apprehensive Affect Description: Flat Patient Cognition Impaired: No Ability to Follow Directions: Good Speech Pattern: Spontaneous Speech and Soft-Spoken Memory Description: Intact Hallucinations: None (denies today) Thought Process: Distracted Thought Content: positive for Perseveration Depressive Symptoms: Low Self Esteem and Difficulty Concentrating Judgement: Good DS: Summary Hospital Course Hospital Course: Admission to adult psychiatry for exacerbation of PTSD, Schizoaffective Disorder, Opiate Use Disorder. Pt reported SI, AH, VH, paranoia. Tox positive for cocaine, benzodiazepines. Also reports missing Haldol Deconate Injection since 06/28/23. Stressors include loss of housing and being admitted to [facility] for detox and mental health treatment. Pt has an opportunity to move in with her and mother in law to mother in laws home. The condition is that she attend a 30 day program first per mother in law. Medications were evaluated and adjusted. Haldol Decanoate was re-established after a successful PO trial without side effects, next IM is due 09/22/23. Pt became more anxious when was discharged, asking to leave with him, however, mother in law refused to have pt return to her home without first completing a program. Pt was accepted to [facility] and will complete her next phase of treatment with their team before returning to family. Time spent discussing smoking cessation with patient: 3 to 10 minutes Status at Discharge Functional status at discharge: independent ambulation Overall status at discharge: patient is back to baseline Time Spent with Patient Time attestation: Total time managing care of this patient today ____ minutes. Time spent: Less than 30 minutes Discharge Plan Discharge Anticipated Discharge Date/Time: 08/27/23 14:00 Patient Disposition: Xfer Inpatient Rehab Fac Discharge Diagnosis: Schizoaffective Disorder PTSD Opiate Use Disorder Referrals: [facility] [Other] - 1 Week (Patient referred to [facility] for substance use treatment ) Edwige Chang MD [Primary Care Provider] - 1 Week Discharge Medications: Discontinued lorazepam 1 mg tablet 1 mg PO BID quetiapine 25 mg Tablet 25 mg PO BEDTIME atorvastatin 20 mg Tablet 20 mg PO DAILY gabapentin 800 mg Tablet 800 mg PO TID No Action multivitamin Tablet 1 tab PO DAILY quetiapine 25 mg tablet 25 mg PO BEDTIME clonidine HCl 0.1 mg tablet 0.1 mg PO BID haloperidol 5 mg tablet 5 mg PO BID trazodone 50 mg tablet 50 mg PO BEDTIME nicotine (polacrilex) 2 mg gum 2 mg PO Q2H PRN (Reason: Nicotine Cravings) haloperidol decanoate 100 mg/mL solution 100 mg IM QMONTH thiamine HCl (vitamin B1) 100 mg tablet 100 mg PO DAILY gabapentin 800 mg tablet 800 mg PO TID fluticasone propion-salmeterol [Advair Diskus] 500-50 mcg/dose blister with device 1 ea inhalation DAILY nicotine 21 mg/24 hr patch 24 hour 1 patch topical DAILY folic acid 1 mg tablet 1 mg PO DAILY lorazepam 1 mg tablet 1 mg PO BID albuterol sulfate [Ventolin HFA] 90 mcg/actuation HFA aerosol inhaler 2 puff inhalation Q6H PRN (Reason: wheezing) buprenorphine-naloxone 2-0.5 mg tablet, sublingual 1 tab sublingual BID topiramate 50 mg tablet 50 mg PO BID Discharge Orders: Discharge Order (Routine); Ordered 08/27/23 Ordered By: Melva Nicholas Diet: Advance to usual diet Activity on Discharge: As tolerated Stand Alone Forms: Patient Portal Discharge page, Community Support Print Language: Georgian Care Plan Goals: Sobriety Mood and Behavioral Stabilization Health Concerns: Sobriety Mood and Behavioral Stabilization Plan of Treatment: Attend scheduled appointments Take medications as directed Haldol Decanoate Injection is due 09/22/23. Assessment: Discharge to [facility]. Discharge Date/Time: 08/27/23 13:55
== END 2023-08-27 13:55 | DRG 750 ==
LOC: HO.ED 21:33 → HO.PM5 08-19 13:13
PROVIDERS: Admitting Provider Clinical Nurse Specialist Psychiatric/Mental Health, Adult; Emergency Provider Emergency Medicine Emergency Medical Services; PCP Family Medicine; Visit Provider Clinical Nurse Specialist Psychiatric/Mental Health, Adult
DX: F25.0 Schizoaffective disorder, bipolar type (principal); R45.851 Suicidal ideations; F43.10 Post-traumatic stress disorder, unspecified; F11.20 Opioid dependence, uncomplicated; F17.210 Nicotine dependence, cigarettes, uncomplicated; T43.4X6A Underdosing of butyrophenone and thiothixene neuroleptics, initial encounter; Z71.6 Tobacco abuse counseling; Z63.79 Other stressful life events affecting family and household; Z79.899 Other long term (current) drug therapy
CPT/HCPCS: 36415; 80048; 80053; 80061; 80143; 80179; 80307; 81001; 82607; 82746; 83036; 83735; 84439; 84443; 85025; 93005; 99285; J1631; S9485

== ENCOUNTER → 2023-08-19 11:19 | Outpatient (BNV) | payer MEDICAID, SELFPAY | PROVIDERS: Admitting Provider Clinical Nurse Specialist Psychiatric/Mental Health, Adult; Emergency Provider Emergency Medicine Emergency Medical Services; PCP Family Medicine; Visit Provider Internal Medicine Cardiovascular Disease | DX: R94.31 Abnormal electrocardiogram [ECG] [EKG] (principal) | CPT/HCPCS: 93010 ==

== ENCOUNTER → 2023-08-19 12:33 | Outpatient (BNV) | payer OTHER, SELFPAY | PROVIDERS: Admitting Provider Clinical Nurse Specialist Psychiatric/Mental Health, Adult; Emergency Provider Emergency Medicine Emergency Medical Services; PCP Family Medicine; Visit Provider Clinical Nurse Specialist Psychiatric/Mental Health, Adult | DX: F25.0 Schizoaffective disorder, bipolar type (principal); F43.11 Post-traumatic stress disorder, acute | CPT/HCPCS: 99231; 99232 ==

== ENCOUNTER 2023-09-08 14:47 | Inpatient (IN) | payer MEDICAID, OTHER, SELFPAY ==
--- NOTE | ~2023-09-08 | CT_ITS ---
Examination: CT brain and CT cervical spine without contrast. CLINICAL INDICATION: Altered mental status found unconscious. Neck trauma. COMPARISON: None. TECHNIQUE: 5 mm thin axial and reformatted 2 mm thin sagittal and coronal images of brain were obtained. Subsequently axial 3 mm thin and reformatted 2 mm thin sagittal and coronal images of cervical spine were obtained. DLP 1352. This CT examination was performed using dose optimization technique as appropriate, variously including the following: Automated exposure control Adjustment of MA and/or KV according to patient size(this includes techniques or standardized protocols for targeted exams where dose is matched to indication/reason for exam; extremities or head. Use of iterative reconstruction techniques. FINDINGS: Brain: There is no acute intra-axial, extra-axial bleed, masses or midline shift. There is no acute infarction evolution. There is no edema. The kerr to white matter differentiation is maintained normal. The lateral ventricles are symmetrical in size and configuration without enlargement. Bone windows reveal no calvarial abnormality. There is a small polyp or retention cyst right sphenoid and maxillary sinuses. No scalp soft tissue abnormality seen. Cervical spine: There is mild straightening of cervical lordosis. The vertebral heights, alignment and disc heights are normal. The craniovertebral junction and C1-C2 alignment is normal. There is no visible acute fracture, dislocation or subluxation seen. There is mild deviation of nasal septum to the right with a small bony spur. CT/CT cervical spine wo IV con IMPRESSION: There is no acute intracranial process seen. Small polyps in the sinuses as described above. Mild straightening of cervical lordosis likely spasm. No visible acute fracture, dislocation or subluxation seen.
[2023-09-08 14:54] VITALS: BP 110/84; BP 127/84; PULSE 106; PULSE 91; RESP 14; TEMP 36.7; O2SAT 98; BMI 31.3
--- NOTE | 2023-09-08 15:45 | ECG_ITS ---
Test Reason : SYNCOPE Blood Pressure : / mmHG Vent. Rate : 096 BPM Atrial Rate : 096 BPM P-R Int : 112 ms QRS Dur : 080 ms QT Int : 370 ms P-R-T Axes : 035 054 034 degrees QTc Int : 467 ms Normal sinus rhythm Normal ECG When compared with ECG of 19-AUG-2023 11:19, Nonspecific T wave abnormality, improved in Inferior leads Nonspecific T wave abnormality no longer evident in Lateral leads QT has lengthened Referred By: Marysol Smith Electronically Signed By:Yony Ramos
[2023-09-08 15:52] VITALS: BP 132/83; PULSE 93; RESP 16; O2SAT 97
--- NOTE | 2023-09-08 16:00 | PC.NURSE ---
seizure precautions applied just as added precaution, pt refusing to speak/answer questions, eyes perrla, vitals stable
--- NOTE | 2023-09-08 16:29 | ED.GENADULT ---
HPI - General Adult General Chief complaint: General Medical Stated complaint: SYNCOPE W/FALL,?SUBSTANCE USE PER EMS Time Seen by Provider: 09/08/23 16:01 Source: patient, RN notes reviewed and old records reviewed Mode of arrival: EMS Limitations: other (Patient uncooperative with questioning) History of Present Illness ED Provider: Can HPI narrative: 38-year-old female past medical history significant for schizoaffective disorder, anxiety bipolar disorder, PTSD, history of substance abuse presents for evaluation of a reported syncopal episode. [place]. EMS was called The patient was able to get up off the ground and walk to the stretcher without any difficulty After that the patient was refusing to answer questions from EMS or nursing staff During my evaluation, the patient is initially just staring at me when I was time to ask questions. When I began to examine the patient she states ?do not touch me. I explained to the patient that I have to examine her especially if she is unwilling to tell us what happened and she states ?I passed out because I am dehydrated, do not keep touching me. ? She does not answer any further questions Related Data Previous Rx's ?Medication ?Instructions ?Recorded albuterol sulfate 90 mcg/actuation 2 puff inhalation RQ4H PRN 08/27/23 aerosol inhaler (Ventolin HFA) Shortness Of Breath #1 inhaler atorvastatin 20 mg tablet 20 mg PO DAILY #30 tabs 08/27/23 buprenorphine 2 mg-naloxone 0.5 mg 1 tab sublingual BID #4 tabs 08/27/23 sublingual tablet folic acid 1 mg tablet 1 mg PO DAILY #30 tabs 08/27/23 gabapentin 800 mg tablet 800 mg PO TID #90 tabs 08/27/23 haloperidol 5 mg tablet 5 mg PO BID #60 tabs 08/27/23 haloperidol decanoate 50 mg/mL 100 mg (2 mL) IM Q28D #2 mL 08/27/23 intramuscular solution lorazepam 1 mg tablet 1 mg PO BID #14 tabs 08/27/23 multivitamin (Daily-Karen tablet) 1 tab PO DAILY #30 tabs 08/27/23 nicotine (polacrilex) 2 mg gum 4 mg buccal Q2H PRN Nicotine 08/27/23 Cravings #60 ea nicotine (polacrilex) 4 mg buccal 4 mg buccal Q2H PRN Nicotine 08/27/23 lozenge Cravings #60 ea nicotine 21 mg/24 hr daily 21 mg transdermal DAILY PRN 08/27/23 transdermal patch Nicotine Cravings #30 ea quetiapine 25 mg tablet 25 mg PO BEDTIME #30 tabs 08/27/23 thiamine mononitrate (vit B1) 100 100 mg PO DAILY #30 tabs 08/27/23 mg tablet trazodone 50 mg tablet 50 mg PO BEDTIME MRX1 PRN Insomnia 08/27/23 #60 tabs Allergies Allergy/AdvReac Type Severity Reaction Status Date / Time dog dander [DOG DANDER] Allergy Intermediate ITCHY EYES Verified 09/08/23 14:58 pollen extracts [POLLEN] Allergy Intermediate STUFFY, Verified 09/08/23 14:58 ITCHY EYES Review of Systems Review of Systems: Patient is not cooperative with review of systems questioning PMFSH Past Medical History Medical History PTSD (post-traumatic stress disorder) Prediabetes Oligomenorrhea Routine medical exam Anxiety Pseudoseizures Opioid use disorder Bipolar 1 disorder, manic, moderate Social History Social History Household Members: Spouse Household Members Other:: ex bf Housing: Apartment Do you presently have visiting nurse or other home services: No Unable to assess alcohol history related to: Unknown Alcohol intake: former Patient Tobacco Use Status: Current everyday Tobacco user Tobacco use type: Cigarette Cigarette Packs Per Day: 1 Cigarettes Per Day: 20.0 Years Smoked: Many' e-Cigarette/Vaping Use: Never Used Second Hand Smoke Exposure: Yes (ex bf smokes in home) Use of substances other than those prescribed or required for medical reasons: Yes Substance Use Type: Crack/Cocaine Advance Directives: No Advance Directives Information Provided: No Do you have a plan to hurt others: No Plan service: No Sexual orientation: Straight/Heterosexual Physical Exam ED Vital Signs: Vital Signs - 24 hr 09/08/23 14:54 09/08/23 15:52 09/08/23 18:29 Temperature 98.0 F Pulse Rate 91 93 79 Respiratory Rate 14 16 17 Blood Pressure 127/84 132/83 125/69 Pulse Oximetry 98 97 98 Oxygen Delivery Method Room Air Room Air Room Air 09/08/23 23:28 09/09/23 00:16 Temperature 98.0 F Pulse Rate 99 72 Respiratory Rate 20 16 Blood Pressure 137/93 H Pulse Oximetry 97 97 Oxygen Delivery Method Room Air Room Air BMI result Body Mass Index 31.3 Const General: healthy appearing, comfortable, no acute distress, alert and awake Nutritional Appearance: well nourished [facility] Head: Yes normocephalic and Yes atraumatic Eyes Eyelids: Yes eyelids normal Conjunctivae: conjunctivae normal Sclerae: sclerae normal Corneas: corneas normal Pupils: Equal, round and reactive pupils present EOM: EOMs intact bilaterally Neck Neck: Yes full ROM Resp Effort & Inspection: normal respiratory effort, able to speak in complete sentences and not labored Cardio Rate: regular rate Rhythm: regular rhythm GI Inspection: No distended Palpation (GI): Soft to palpation, not firm, nontender, no guarding and not rigid Skin General skin exam: no rashes or lesions noted and elasticity normal Neuro Cranial nerves: Yes Equal, round and reactive pupils present and Yes Bilaterally intact EOM present Extrem Other: Moving all extremities well without any obvious deformities Course Reevaluation(s) Reevaluation #1: Patient's medical workup unremarkable, CT scan of the brain and C-spine show no evidence of trauma, her C-collar has been removed. The patient is now answering questions. She has been up and ambulating. She seems somewhat sleepy but stays awake for interactions. Time: 21:11 Reevaluation #2: Patient's mental status remains unchanged, she will get up and walk herself to the bathroom, but will mostly just stare at me when I asked her questions if she needs anything. She can answer when she wants to for example, when I was pushing on her abdomen she would tell me to stop touching her. The patient told me that she has been living on the streets that she is not nauseous but offers no other information at this time. The patient's seemed to be in a somewhat catatonic state. Plan for care team consult and psychiatry consult Time: 23:44 Reevaluation #3: Patient's tox screen was positive for cocaine and benzodiazepines. Patient answer questions when she feels like it, it does not seem consistent with a seizure disorder and postictal state as she is able to get up and walk whenever she wants to, she responds to commands well but she is not answering questions. Time: 00:37 Additional Reevaluation(s): Patient's urinalysis is consistent with UTI which will be treated with cefuroxime Medical Decision Making Medical Decision Making [facility] Narrative: 38-year-old female with past medical history as documented above presents for evaluation of a self-reported syncopal episode. This was not witnessed, the patient is not cooperative examination is. There are no obvious signs of trauma. Her vital signs are within normal limits. She arrives in a C-collar. Plan for EKG, basic labs, drug screen, CT scan of the brain and C-spine. Further workup as indicated Differential Diagnosis Differential Diagnoses: The differential diagnosis associated with the presentation includes Syncope Bipolar disorder Catatonia Seizure Cervical fracture Lab Data 09/08/23 16:51 09/08/23 16:51 Labs: Lab Results 09/08/23 09/08/23 Range/Units 16:51 23:08 WBC 8.7 (4.8-10.8) X10*3/uL RBC 4.51 (4.20-5.50) X10*6/uL Hgb 12.0 (12.0-16.0) g/dl Hct 35.8 L (37.0-47.0) % MCV 79.4 L (80.0-98.0) fL MCH 26.6 L (27.0-33.0) pg MCHC 33.5 (31.0-35.0) g/dl RDW 15.8 (11.0-16.0) % Plt Count 331 (160-400) X10*3/uL MPV 9.8 (9.4-12.3) fL Immature Gran % (Auto) 0.3 (0.0-0.4) % Neut % (Auto) 55.3 (45-73) % Lymph % (Auto) 34.6 (20-40) % Reagan % (Auto) 7.9 (2-11) % Eos % (Auto) 1.1 (0-4) % Baso % (Auto) 0.8 (0-2) % Lymph # (Auto) 3.0 (1.2-4.9) X10*3/uL Reagan # (Auto) 0.7 (0.1-1.2) X10*3/uL Eos # (Auto) 0.1 (0.0-0.4) X10*3/uL Baso # (Auto) 0.1 (0.0-0.2) X10*3/uL Abs Immat Gran (auto) 0.03 (0.00-0.03) X10*3/uL Absolute Neuts (auto) 4.8 (2.0-8.3) x10*3/uL Absolute Nucleated RBC 0.000 (0.0-0.012) X10*3/uL Nucleated RBC % (auto) 0.0 (0.0-0.2) /100WBC Sodium 141 (135-145) mmol/L Potassium 3.6 (3.3-5.1) mmol/L Chloride 107 (96-108) mmol/L Carbon Dioxide 21 L (22-29) mmol/L Anion Gap 17 (12-20) BUN 15 (9-16) mg/dL Creatinine 0.77 (0.5-1.4) mg/dL Estim Creat Clear Calc 113.4 Estimated GFR > 60 Random Glucose 107 (60-115) mg/dL Calcium 10.1 (8.4-10.2) mg/dL Magnesium 2.2 (1.6-2.6) mg/dL Total Bilirubin 0.5 (0.0-1.0) mg/dL Direct Bilirubin 0.2 (0.0-0.5) mg/dL AST 124 H (5-31) U/L ALT 59 H (0-31) U/L Alkaline Phosphatase 82 (39-117) U/L Troponin I High Sens < 2.7 (<3.5-17.0) ng/L Total Protein 7.4 (6.5-8.0) g/dL Albumin 4.4 (3.5-5.0) g/dL Lipase 34 (8-78) U/L Beta HCG, Quant < 2 mIU/mL Urine Color Dark Yellow Urine Appearance Turbid Urine pH 6.0 (5.0-9.0) Ur Specific [place] >= 1.030 H (1.005-1.025) Urine Protein Trace (Neg-Trace) mg/dL Urine Glucose (UA) Negative (Negative) mg/dL Urine Ketones 40 (Negative) mg/dL Urine Blood Trace H (Negative) Urine Nitrite Negative (Negative) Ur Leukocyte Esterase Negative (Negative) Urine RBC 6-10 H (0-2) /HPF Urine WBC 0-5 (0-5) /HPF Ur Squamous Epith Cells >20 (0-2) /HPF Urine Bacteria 4+ (None Seen) Hyaline Casts 0-2 (0-2) /LPF Urine Test NEGATIVE (NEGATIVE) Urine Opiates Screen Not Detected (Not Detect) Ur Buprenorphine Scrn Not Detected (Not Detect) ng/mL Ur Oxycodone Screen Not Detected (Not Detect) ng/mL Urine Methadone Screen Not Detected (Not Detect) ng/mL Urine Fentanyl Screen Not Detected (Not Detect) Ur Barbiturates Screen Not Detected (Not Detect) Ur Phencyclidine Scrn Not Detected (Not Detect) Ur Amphetamines Screen Not Detected (Not Detect) U Benzodiazepines Scrn POSITIVE H (Not Detect) Urine Cocaine Screen POSITIVE H (Not Detect) U Marijuana (THC) Screen Not Detected (Not Detect) Ethyl Alcohol < 10 mg/dL Independent Interpretation I performed an independent interpretation of an: EKG Interpretation: Normal sinus rhythm with a rate of [address] segment elevations or depressions. Discharge Plan Discharge Clinical Impression: Polysubstance abuse, Acute exacerbation of psychosis, Urinary tract infection Patient Disposition: Still a Patient Prescriptions: No Action haloperidol 5 mg Tablet 5 mg PO BID Qty: 60 1RF trazodone 50 mg Tablet 50 mg PO BEDTIME MRX1 PRN (Reason: Insomnia) Qty: 60 1RF nicotine (polacrilex) 2 mg Gum 4 mg buccal Q2H PRN (Reason: Nicotine Cravings) Qty: 60 1RF nicotine 21 mg/24 hr Patch 24 Hour 21 mg transdermal DAILY PRN (Reason: Nicotine Cravings) Qty: 30 1RF haloperidol decanoate 50 mg/mL Solution 100 mg IM Q28D Qty: 2 0RF albuterol sulfate [Ventolin HFA] 90 mcg/actuation Hfa Aerosol Inhaler 2 puff inhalation RQ4H PRN (Reason: Shortness Of Breath) Qty: 1 1RF buprenorphine-naloxone 2-0.5 mg Tablet, Sublingual 1 tab sublingual BID Qty: 4 0RF nicotine (polacrilex) 4 mg Lozenge 4 mg buccal Q2H PRN (Reason: Nicotine Cravings) Qty: 60 1RF multivitamin [Daily-Karen] Tablet 1 tab PO DAILY Qty: 30 1RF folic acid 1 mg Tablet 1 mg PO DAILY Qty: 30 1RF thiamine mononitrate (vit B1) 100 mg Tablet 100 mg PO DAILY Qty: 30 1RF quetiapine 25 mg Tablet 25 mg PO BEDTIME Qty: 30 1RF atorvastatin 20 mg Tablet 20 mg PO DAILY Qty: 30 1RF gabapentin 800 mg Tablet 800 mg PO TID Qty: 90 1RF lorazepam 1 mg tablet 1 mg PO BID Qty: 14 4RF Print Language: Icelandic
[2023-09-08 16:55] LABS: MANUAL DIFF FLAG NO
--- NOTE | 2023-09-08 16:55 | PC.NURSE ---
pt difficult stick- labs obtained after multiple sticks.
[2023-09-08 17:05] LABS: Basophils Absolute Auto 0.1 X10*3/uL (0.0-0.2); Basophils Percent Auto 0.8 % (0-2); Eosinophils Absolute Auto 0.1 X10*3/uL (0.0-0.4); Eosinophils Percent Auto 1.1 % (0-4); Hematocrit 35.8 % (37.0-47.0); Imm Gran Abs Auto 0.03 X10*3/uL (0.00-0.03); Imm Gran Pct Auto 0.3 % (0.0-0.4); Lymphocytes Percent Auto 34.6 % (20-40); Mean Corpuscular HGB Conc 33.5 g/dl (31.0-35.0); Mean Corpuscular Hemoglobin 26.6 pg (27.0-33.0); Mean Corpuscular Volume 79.4 fL (80.0-98.0); Mean Platelet Volume 9.8 fL (9.4-12.3); Monocytes Absolute Auto 0.7 X10*3/uL (0.1-1.2); Monocytes Percent Auto 7.9 % (2-11); Neutrophils Absolute Auto 4.8 x10*3/uL (2.0-8.3); Neutrophils Percent Auto 55.3 % (45-73); Platelet Count 331 X10*3/uL (160-400); Red Blood Count 4.51 X10*6/uL (4.20-5.50); Red Cell Distribution Width 15.8 % (11.0-16.0); White Blood Count 8.7 X10*3/uL (4.8-10.8)
[2023-09-08 17:28] LABS: Alanine Aminotransferase 59 U/L (0-31); Albumin Level 4.4 g/dL (3.5-5.0); Alkaline Phosphatase 82 U/L (39-117); Anion Gap 17 (12-20); Aspartate Amino Transferase 124 U/L (5-31); Bilirubin Direct 0.2 mg/dL (0.0-0.5); Bilirubin Total 0.5 mg/dL (0.0-1.0); Blood Urea Nitrogen 15 mg/dL (9-16); Calcium 10.1 mg/dL (8.4-10.2); Carbon Dioxide 21 mmol/L (22-29); Chloride 107 mmol/L (96-108); Creatinine Clr Calc Pharmacy 113.4; Estimated Glomerular Filt Rate > 60; Ethanol < 10 mg/dL; Glucose Random 107 mg/dL (60-115); HCG Quantitative < 2 mIU/mL; Lipase 34 U/L (8-78); Magnesium 2.2 mg/dL (1.6-2.6); Potassium 3.6 mmol/L (3.3-5.1); Sodium 141 mmol/L (135-145); Total Protein 7.4 g/dL (6.5-8.0); Troponin-I High Sensitivity < 2.7 ng/L (<3.5-17.0)
--- NOTE | 2023-09-08 18:15 | PC.NURSE ---
pt to ct scan
[2023-09-08 18:29] VITALS: BP 125/69; PULSE 79; RESP 17; O2SAT 98
--- NOTE | 2023-09-08 18:52 | PC.NURSE ---
pt awake, continues to refuse to speak with staff most of the time, pt did tell the tech that she had tripped and fell. pt continues to await for results of CT scan.
--- NOTE | 2023-09-08 22:43 | MHC.EDTECH ---
ELVI DICK IS AWARE PATIENT REFUSED 2200 VITALS .
--- NOTE | 2023-09-08 22:45 | MHC.EDTECH ---
Pt refusing vital signs. ELVI bagley.
[2023-09-08 23:22] LABS: Amphetamine Screen Urine Not Detected (Not Detect); Barbiturates, Urine Not Detected (Not Detect); Benzodiazepines Screen Urine POSITIVE (Not Detect); Buprenorphine Scr Not Detected (Not Detect); Cannabinoid Screen Urine Not Detected (Not Detect); Cocaine Screen Urine POSITIVE (Not Detect); Fentanyl, urine Not Detected (Not Detect); Methadone Screen, Urine Not Detected (Not Detect); Opiate Screen Urine Not Detected (Not Detect); Oxycodone Screen Urine Not Detected (Not Detect); Phencyclidine Screen Urine Not Detected (Not Detect)
[2023-09-08 23:28] VITALS: PULSE 99; RESP 20; O2SAT 97
--- NOTE | 2023-09-08 23:43 | PC.NURSE ---
pt walked out of her room, and then laid down in the floor, pt will not speak to this nurse, pt assisted back to her room and pt climbed back onto the stretcher.
[2023-09-09 00:16] VITALS: BP 137/93; PULSE 72; RESP 16; TEMP 36.7; O2SAT 97
--- NOTE | 2023-09-09 00:21 | MHC.EDTECH ---
this tech called the lab to ask them to run UA and UR PREG off of urine previously sent down.
--- NOTE | 2023-09-09 00:21 | MHC.CARE ---
CARE Team attempted to meet with the pt. She verbally stated that she did not want to talk to t/w, then made no other comments. She would only stare at t/w not making any head movements nor verbal communications. ED provider stated that he put in a psych consult as well.
[2023-09-09 00:26] LABS: Appearance Urine Turbid; Color Urine Dark Yellow; Glucose Urine UA Negative (Negative); Leukocyte Esterase Urine Negative (Negative); Nitrite Urine Negative (Negative); Specific Gravity - Urine >= 1.030 (1.005-1.025); UMIC TRIGGER UACC YES; Urine Blood Trace (Negative); Urine Ketones 40 mg/dL (Negative); Urine Protein Trace mg/dL (Neg-Trace)
[2023-09-09 00:28] LABS: UPreg QC Valid YES; Urine Pregnancy NEGATIVE (NEGATIVE)
[2023-09-09 00:31] LABS: Bacteria Urine 4+ (None Seen); Hyaline Casts Urine 0-2 /LPF (0-2); Squamous Epithelial Cell Urine >20 /HPF (0-2); WBC Urine 0-5 /HPF (0-5)
[2023-09-09] MEDS: cefuroxime axetiL 250 MG TABLET PO ×2 (00:57→20:56)
--- NOTE | 2023-09-09 01:01 | PC.NURSE ---
pt was up walking in room, pt medicated as ordered with Ceftin, pt was able to take the medicine, without any problems. Took the water away from pt, and she said' I need water, I need water . Gave the water back to the patient and she is lying on the strecher. Turned the lights down, and Pt states, I can't see. I can't see. Pt kept repeating, I can't see , until the lights were turned back on, will cont with plan of care
--- NOTE | 2023-09-09 03:25 | PC.NURSE ---
resting quietly on strecher, with eyes closed, resp with ease, will cont plan of care.
--- NOTE | 2023-09-09 04:10 | PC.NURSE ---
pt got up, off the stretcher, and close the curtains to her room. This nurse went and opened the curtains, explained to pt, curtains could not be close, this nurse, need to see her, and make sure, she didn't fall. Will cont with the plan of care
[2023-09-09 05:11] VITALS: PULSE 72; RESP 18; O2SAT 97
--- NOTE | 2023-09-09 06:40 | PC.NURSE ---
pt up and amb to the bathrrom, no assistance required, the tech, did walk with the patient to the bathroom
[2023-09-09 06:47] VITALS: BP 116/71; PULSE 88; RESP 16; TEMP 36.3; O2SAT 98
--- NOTE | 2023-09-09 07:02 | PC.NURSE ---
report given to Sarah BOLES, all questions answered
--- NOTE | 2023-09-09 08:25 | PC.NURSE ---
pt changed over into [facility] elaine ans secured. pt resting in bed, not answering questions from staff. bizarre/waxy movements
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
[2023-09-09] MEDS: LORazepam 2 MG/ML VIAL IM (12:35)
[2023-09-09 12:58] VITALS: BP 140/91; PULSE 76; RESP 18; TEMP 36.9; BMI 31.3
[2023-09-09] MEDS: Gabapentin 300 MG CAPSULE PO ×2 (18:58→20:56)
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
[2023-09-09 20:00] VITALS: BP 107/69; PULSE 96; TEMP 36.6; O2SAT 98
[2023-09-09] MEDS: Topiramate 25 MG TABLET PO (20:56)
[2023-09-09] MEDS: LORazepam 1 MG TABLET PO (20:56)
[2023-09-09] MEDS: Buprenorphine/Naloxone 2/0.5mg TAB.SUBL 1 TAB SUBLINGUAL (20:56)
[2023-09-10 08:00] VITALS: BP 122/72; PULSE 76; RESP 18; TEMP 36.2; O2SAT 96
[2023-09-10] MEDS: Multivitamin TABLET 1 TAB PO (08:40)
[2023-09-10] MEDS: Thiamine HCL 100 MG TABLET PO (08:40)
[2023-09-10] MEDS: Fluticasone/Vilanterol 200/25 BLST.W.DEV 1 PUFF INHALE (08:40)
[2023-09-10] MEDS: LORazepam 1 MG TABLET PO ×2 (08:40→20:39)
[2023-09-10] MEDS: cefuroxime axetiL 250 MG TABLET PO ×2 (08:41→20:39)
[2023-09-10] MEDS: Folic Acid 1 MG TABLET PO (08:41)
[2023-09-10] MEDS: Topiramate 25 MG TABLET PO ×2 (08:41→20:39)
[2023-09-10] MEDS: Gabapentin 300 MG CAPSULE PO ×3 (08:41→20:39)
[2023-09-10 09:14] LABS: Estimated Average Glucose 131 mg/dL; Hemoglobin A1c % 6.2 % (<6.0)
[2023-09-10 09:32] LABS: Cholesterol 227 mg/dL (<200); HDL Cholesterol 43 mg/dL (>40); LDL Cholesterol Calculated 163 mg/dL (<100); Magnesium 2.1 mg/dL (1.6-2.6); Triglycerides 108 mg/dL (<150)
[2023-09-10 09:52] LABS: Free T4 (Free Thyroxine) 1.08 ng/dL (0.71-1.85); Thyroid Stimulating Hormone 1.28 uIU/mL (0.32-4.0)
[2023-09-10 10:26] LABS: Folate 13.4 ng/mL (> or = 4.0); Vitamin B12 250 pg/mL (200-900)
[2023-09-10 13:43] LABS: Syphilis Screen Nonreactive (Nonreactive)
[2023-09-10 13:44] LABS: HIV AB/AG Nonreactive (Nonreactive); HIV Num 1 0.08 S/CO (0.00-0.99)
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
[2023-09-10] MEDS: Benztropine Mesylate 0.5 MG TABLET PO ×2 (15:01→20:39)
--- NOTE | 2023-09-10 15:22 | PC.NURSE ---
Confirmed that pt had a CV signed on 09/10/23, she requested to sign a 3 day notice and it was witnessed by TW. Appropriate persons notified and legal status updated.
[2023-09-10] MEDS: hydrOXYzine HCL 25 MG TABLET PO (18:43)
--- NOTE | 2023-09-10 19:33 | PM.EVENT ---
Event Note Date of Service: 09/10/23 Event Note: Addiction consult placed for patient requesting to transition from suboxone to methadone Chart reviewed Current subxone dose 2mg BID Patient seen earlier this month for similar request UDS - for opiates and buprenorphine at this admission and previous admission Rec: methadone not appropriate at this time if patient wishes to transition to this, she may follow up outpatient with [facility] community provider Time Spent With Patient Time: Total time managing care of this patient today ____ minutes.
[2023-09-10 20:00] VITALS: BP 128/81; PULSE 79; RESP 18; TEMP 36.7; O2SAT 98
[2023-09-10] MEDS: QUEtiapine Fumarate 100 MG TABLET PO (20:40)
[2023-09-11 08:00] VITALS: BP 100/50; PULSE 79; RESP 18; TEMP 35.9; O2SAT 97
[2023-09-11] MEDS: Topiramate 25 MG TABLET PO ×2 (08:27→19:57)
[2023-09-11] MEDS: Fluticasone/Vilanterol 200/25 BLST.W.DEV 1 PUFF INHALE (08:27)
[2023-09-11] MEDS: LORazepam 1 MG TABLET PO ×2 (08:28→19:56)
[2023-09-11] MEDS: Folic Acid 1 MG TABLET PO (08:28)
[2023-09-11] MEDS: Thiamine HCL 100 MG TABLET PO (08:28)
[2023-09-11] MEDS: cefuroxime axetiL 250 MG TABLET PO ×2 (08:28→19:56)
[2023-09-11] MEDS: Multivitamin TABLET 1 TAB PO (08:28)
[2023-09-11] MEDS: Benztropine Mesylate 0.5 MG TABLET PO ×2 (08:28→19:56)
[2023-09-11] MEDS: Gabapentin 300 MG CAPSULE PO ×3 (08:28→19:56)
[2023-09-11] MEDS: hydrOXYzine HCL 25 MG TABLET PO (11:59)
--- NOTE | 2023-09-11 12:32 | HO.PSYCHPN ---
Subjective Subjective Date of Service: 09/11/23 Reason For Visit: polysubstance abuse, ptsd, schizoaffective disorde Subjective Notes: Conditional Voluntary and 3 Day (retraction) Healthcare Proxy: No Guardianship: No Medical Problems Affecting Mental Status: No Interim History: Pt retracted her three day notice. States she and her have talked and they will not pursue divorce at this time, however, will attempt to work on their relationship. Pt reports [facility] where she has been before. States agrees this would be appropriate for her as their [facility]rian is close to the program and her is manager would be coming to meet with her on a regular basis. Discussed wanting to decrease Suboxone and return to Methadone as it makes her feel ill with N/V. Addiction medicine believes this transition will be best in OP setting. This message was discussed with pt today. Review of psychotropic meds. Pt currently finds regime useful, without adverse effects. Medication Compliance: Yes Side effects from medications: No Attending Groups: Intermittent Review of Systems Acute medical concerns: No Medical Review of Systems: unchanged Review of Systems Review of Systems Yes all other systems are reviewed and are negative Mental Status Exam Mental Status Exam Patient Appearance: Fatigued Patient Orientation: Person, Place, Time and Situation Level of Consciousness: Alert Patient Behavior: Talkative and Good Eye Contact Mood Description: Depressed Affect Description: Flat Patient Cognition Impaired: No Ability to Follow Directions: Good Speech Pattern: Spontaneous Speech Memory Description: Episodic Impaired Delusions: Paranoid Ideation Perceptual Disturbances: Depersonalization and Derealization Thought Process: Rumination Thought Content: positive for Circumstantial and positive for Perseveration Depressive Symptoms: Increased Anxiety Judgement: Fair Diagnostics Vital Signs (24Hr): Vital Signs - 24 hr 09/10/23 20:00 09/11/23 08:00 Temperature 98.1 F 96.6 F L Pulse Rate 79 79 Respiratory Rate 18 18 Blood Pressure 128/81 100/50 L Pulse Oximetry 98 97 Oxygen Delivery Method Room Air Room Air BMI result Body Mass Index 31.3 Labs 09/08/23 16:51 09/08/23 16:51 Labs: Laboratory Results - last 48 hr 09/10/23 09/10/23 08:22 12:59 Estimat Average Glucose 131 Hemoglobin A1c % 6.2 H Magnesium 2.1 Triglycerides 108 Cholesterol 227 H LDL Cholesterol, Calc 163 H HDL Cholesterol 43 Vitamin B12 250 Folate 13.4 TSH 1.28 Free T4 1.08 T.pallidum Ab (EIA) Nonreactive HIV 1&2 Ab/P24 Ag 4thGn Nonreactive Imaging Radiology Impressions: ITS Impressions Cervical Spine CT 09/08/23 18:14 IMPRESSION: There is no acute intracranial process seen. Small polyps in the sinuses as described above. Mild straightening of cervical lordosis likely spasm. No visible acute fracture, dislocation or subluxation seen. Head CT 09/08/23 18:14 IMPRESSION: There is no acute intracranial process seen. Small polyps in the sinuses as described above. Mild straightening of cervical lordosis likely spasm. No visible acute fracture, dislocation or subluxation seen. Medications Medications Current Medications Acetaminophen (Acetaminophen 325 Mg Tablet) 650 mg PO Q6H PRN PRN Reason: Headache/Pain Mild Scale (1-3) Al Hydroxide/Mg Hydroxide (Magnesium Hydrox/Alum Hydrox 30 Ml Oral.Susp) 30 ml PO Q6H PRN PRN Reason: Heartburn/Nausea Albuterol Sulfate (Albuterol Sulfate 90 Mcg 8 Gm Inhaler) 2 puff INHALE RQ6H PRN PRN Reason: Wheezing Benztropine Mesylate (Benztropine Mesylate 0.5 Mg Tablet) 0.5 mg PO BID [facility] Last Admin: 09/11/23 08:28 Dose: 0.5 mg Buprenorphine/Naloxone (Buprenorphine/Naloxone 2/0.5mg Tab.Subl) 1 tab SUBLINGUAL BID [facility] Last Admin: 09/11/23 08:30 Dose: Not Given Cefuroxime Axetil (Cefuroxime Axetil 250 Mg Tablet) 250 mg PO BID [facility] Stop: 09/13/23 21:01 Last Admin: 09/11/23 08:28 Dose: 250 mg Fluticasone/Vilanterol (Fluticasone/Vilanterol 200/25 Blst.W.Dev) 1 puff INHALE RDAILY [facility] Last Admin: 09/11/23 08:27 Dose: 1 puff Folic Acid (Folic Acid 1 Mg Tablet) 1 mg PO DAILY [facility] Last Admin: 09/11/23 08:28 Dose: 1 mg Gabapentin (Gabapentin 300 Mg Capsule) 300 mg PO TID [facility] Last Admin: 09/11/23 08:28 Dose: 300 mg Hydroxyzine HCl (Hydroxyzine Hcl 25 Mg Tablet) 25 mg PO Q6H PRN PRN Reason: Anxiety Last Admin: 09/11/23 11:59 Dose: 25 mg Lorazepam (Lorazepam 1 Mg Tablet) 1 mg PO BID [facility] Last Admin: 09/11/23 08:28 Dose: 1 mg Magnesium Hydroxide (Milk Of Magnesia 30 Ml Oral.Susp) 30 ml PO DAILY PRN PRN Reason: Constipation Multivitamins/Vitamin C (Multivitamin Tablet) 1 tab PO DAILY [facility] Last Admin: 09/11/23 08:28 Dose: 1 tab Nicotine Polacrilex (Nicotine Polacrilex 2 Mg Gum) 4 mg BUCCAL Q2H PRN PRN Reason: Nicotine Cravings Quetiapine Fumarate (Quetiapine Fumarate 100 Mg Tablet) 100 mg PO BEDTIME [facility] Last Admin: 09/10/23 20:40 Dose: 100 mg Thiamine HCl (Thiamine Hcl 100 Mg Tablet) 100 mg PO DAILY [facility] Last Admin: 09/11/23 08:28 Dose: 100 mg Topiramate (Topiramate 25 Mg Tablet) 25 mg PO BID [facility] Last Admin: 09/11/23 08:27 Dose: 25 mg Trazodone HCl (Trazodone Hcl 50 Mg Tablet) 50 mg PO BEDTIME MRX1 PRN PRN Reason: Insomnia Allergies Allergies Allergy/AdvReac Type Severity Reaction Status Date / Time dog dander [DOG DANDER] Allergy Intermediate ITCHY EYES Verified 09/08/23 14:58 pollen extracts [POLLEN] Allergy Intermediate STUFFY, Verified 09/08/23 14:58 ITCHY EYES Assessment & Plan Assessment & Plan (1) PTSD (post-traumatic stress disorder): Status: Acute Code(s): F43.10 - Post-traumatic stress disorder, unspecified (2) Schizoaffective disorder, bipolar type: Status: Acute Code(s): F25.0 - Schizoaffective disorder, bipolar type (3) Polysubstance abuse: Status: Acute Code(s): F19.10 - Other psychoactive substance abuse, uncomplicated Plan Schizoaffective Disorder, PTSD, Polysubstance Use Disorder. Plan: 1. Admit, Section 12B, pt changed to CV and signed a TDN effective 09/13/23 2. Re-establish regime 3. Discharge planning, pt asking for a residential, a change from Suboxone to Methadone, OP referrals 4. Addiction Medicine consultation 5. Benztropine 0.5 mg bid po 6. Haldol Dec 100 mg IM due 09/22/23. 09/10 Continue current regime. Reason for continued inpatient stay Substantial Risk for: rapid decompensation Time Spent With Patient Time: Total time managing care of this patient today ____ minutes.
[2023-09-11] MEDS: Acetaminophen 325 MG TABLET 650 MG PO (16:06)
[2023-09-11 16:22] LABS: CT PCR NOT DETECTED (Not Detect.); NG PCR NOT DETECTED (Not Detect.)
[2023-09-11 18:04] LABS: Herpes Simplex Type 1 IgG >58.00 index; Herpes Simplex Type 2 IgG <0.90 index
[2023-09-11] MEDS: QUEtiapine Fumarate 100 MG TABLET PO (19:57)
[2023-09-11 20:00] VITALS: BP 138/83; PULSE 91; RESP 18; TEMP 36.4; O2SAT 98
[2023-09-12 07:00] VITALS: BMI 32.4
[2023-09-12 08:00] VITALS: BP 127/85; PULSE 73; RESP 20; TEMP 36.2; O2SAT 100
[2023-09-12] MEDS: Thiamine HCL 100 MG TABLET PO (08:35)
[2023-09-12] MEDS: Topiramate 25 MG TABLET PO ×2 (08:35→20:24)
[2023-09-12] MEDS: cefuroxime axetiL 250 MG TABLET PO ×2 (08:35→20:24)
[2023-09-12] MEDS: Benztropine Mesylate 0.5 MG TABLET PO ×2 (08:36→20:24)
[2023-09-12] MEDS: Folic Acid 1 MG TABLET PO (08:36)
[2023-09-12] MEDS: Gabapentin 300 MG CAPSULE PO ×3 (08:36→20:24)
[2023-09-12] MEDS: LORazepam 1 MG TABLET PO ×2 (08:36→20:24)
[2023-09-12] MEDS: Multivitamin TABLET 1 TAB PO (08:36)
--- NOTE | 2023-09-12 11:38 | HO.PSYCHPN ---
Subjective Subjective Date of Service: 09/12/23 Reason For Visit: polysubstance abuse, ptsd, schizoaffective disorde Subjective Notes: Conditional Voluntary and 3 Day (09/16/23) Healthcare Proxy: No Guardianship: No Medical Problems Affecting Mental Status: No Interim History: Continues to want to stop Suboxone and begin Methadone. Addiction Medicine suggests this be done as an outpatient. Will begin Suboxone tapering Pt hoping for acceptance into [facility] Pt reports she will not pursue divorce from her at this time. She is wanting further treatment she reports to improve her relationship success. Medication Compliance: Yes Side effects from medications: No Attending Groups: Intermittent Review of Systems Acute medical concerns: No Medical Review of Systems: unchanged Review of Systems Review of Systems Yes all other systems are reviewed and are negative Mental Status Exam Mental Status Exam Patient Appearance: Appropriate Patient Orientation: Person, Place, Time and Situation Level of Consciousness: Alert Patient Behavior: Talkative and Good Eye Contact Mood Description: Apprehensive Affect Description: Apprehensive Patient Cognition Impaired: No Ability to Follow Directions: Good Speech Pattern: Spontaneous Speech Memory Description: Episodic Impaired Delusions: Paranoid Ideation Perceptual Disturbances: Depersonalization and Derealization Thought Process: Rumination Thought Content: positive for Circumstantial and positive for Perseveration Depressive Symptoms: Increased Anxiety Judgement: Fair Diagnostics Vital Signs (24Hr): Vital Signs - 24 hr 09/11/23 20:00 09/12/23 08:00 Temperature 97.5 F 97.2 F Pulse Rate 91 73 Respiratory Rate 18 20 Blood Pressure 138/83 127/85 Pulse Oximetry 98 100 Oxygen Delivery Method Room Air Room Air BMI result Body Mass Index 31.3 Labs 09/08/23 16:51 09/08/23 16:51 Labs: Laboratory Results - last 48 hr 09/10/23 09/11/23 12:59 13:37 T.pallidum Ab (EIA) Nonreactive Chlam trachomat DNA PCR NOT DETECTED HSV I IgG Ab >58.00 H HSV II IgG <0.90 HIV 1&2 Ab/P24 Ag 4thGn Nonreactive N.gonorrhoeae DNA (PCR) NOT DETECTED Imaging Radiology Impressions: ITS Impressions Cervical Spine CT 09/08/23 18:14 IMPRESSION: There is no acute intracranial process seen. Small polyps in the sinuses as described above. Mild straightening of cervical lordosis likely spasm. No visible acute fracture, dislocation or subluxation seen. Head CT 09/08/23 18:14 IMPRESSION: There is no acute intracranial process seen. Small polyps in the sinuses as described above. Mild straightening of cervical lordosis likely spasm. No visible acute fracture, dislocation or subluxation seen. Medications Medications Current Medications Acetaminophen (Acetaminophen 325 Mg Tablet) 650 mg PO Q6H PRN PRN Reason: Headache/Pain Mild Scale (1-3) Last Admin: 09/11/23 16:06 Dose: 650 mg Al Hydroxide/Mg Hydroxide (Magnesium Hydrox/Alum Hydrox 30 Ml Oral.Susp) 30 ml PO Q6H PRN PRN Reason: Heartburn/Nausea Albuterol Sulfate (Albuterol Sulfate 90 Mcg 8 Gm Inhaler) 2 puff INHALE RQ6H PRN PRN Reason: Wheezing Benzocaine (Benzocaine 20 % Oral Gel 9 Gm Tube) 1 appl MUCOUS MEM TID PRN; Protocol PRN Reason: oral pain Benztropine Mesylate (Benztropine Mesylate 0.5 Mg Tablet) 0.5 mg PO BID [facility] Last Admin: 09/12/23 08:36 Dose: 0.5 mg Buprenorphine/Naloxone (Buprenorphine/Naloxone 2/0.5mg Tab.Subl) 1 tab SUBLINGUAL BID [facility] Last Admin: 09/12/23 08:38 Dose: Not Given Cefuroxime Axetil (Cefuroxime Axetil 250 Mg Tablet) 250 mg PO BID [facility] Stop: 09/13/23 21:01 Last Admin: 09/12/23 08:35 Dose: 250 mg Fluticasone/Vilanterol (Fluticasone/Vilanterol 200/25 Blst.W.Dev) 1 puff INHALE RDAILY [facility] Last Admin: 09/12/23 08:38 Dose: Not Given Folic Acid (Folic Acid 1 Mg Tablet) 1 mg PO DAILY [facility] Last Admin: 09/12/23 08:36 Dose: 1 mg Gabapentin (Gabapentin 300 Mg Capsule) 300 mg PO TID [facility] Last Admin: 09/12/23 08:36 Dose: 300 mg Hydroxyzine HCl (Hydroxyzine Hcl 25 Mg Tablet) 25 mg PO Q6H PRN PRN Reason: Anxiety Last Admin: 09/11/23 11:59 Dose: 25 mg Lorazepam (Lorazepam 1 Mg Tablet) 1 mg PO BID [facility] Last Admin: 09/12/23 08:36 Dose: 1 mg Magnesium Hydroxide (Milk Of Magnesia 30 Ml Oral.Susp) 30 ml PO DAILY PRN PRN Reason: Constipation Multivitamins/Vitamin C (Multivitamin Tablet) 1 tab PO DAILY [facility] Last Admin: 09/12/23 08:36 Dose: 1 tab Nicotine Polacrilex (Nicotine Polacrilex 2 Mg Gum) 4 mg BUCCAL Q2H PRN PRN Reason: Nicotine Cravings Quetiapine Fumarate (Quetiapine Fumarate 100 Mg Tablet) 100 mg PO BEDTIME [facility] Last Admin: 09/11/23 19:57 Dose: 100 mg Thiamine HCl (Thiamine Hcl 100 Mg Tablet) 100 mg PO DAILY [facility] Last Admin: 09/12/23 08:35 Dose: 100 mg Topiramate (Topiramate 25 Mg Tablet) 25 mg PO BID [facility] Last Admin: 09/12/23 08:35 Dose: 25 mg Trazodone HCl (Trazodone Hcl 50 Mg Tablet) 50 mg PO BEDTIME MRX1 PRN PRN Reason: Insomnia Allergies Allergies Allergy/AdvReac Type Severity Reaction Status Date / Time dog dander [DOG DANDER] Allergy Intermediate ITCHY EYES Verified 09/08/23 14:58 pollen extracts [POLLEN] Allergy Intermediate STUFFY, Verified 09/08/23 14:58 ITCHY EYES Assessment & Plan Assessment & Plan (1) PTSD (post-traumatic stress disorder): Status: Acute Code(s): F43.10 - Post-traumatic stress disorder, unspecified (2) Schizoaffective disorder, bipolar type: Status: Acute Code(s): F25.0 - Schizoaffective disorder, bipolar type (3) Polysubstance abuse: Status: Acute Code(s): F19.10 - Other psychoactive substance abuse, uncomplicated Plan Schizoaffective Disorder, PTSD, Polysubstance Use Disorder. Plan: 1. Admit, Section 12B, pt changed to CV and signed a TDN effective 09/13/23 2. Re-establish regime 3. Discharge planning, pt asking for a long-term, a change from Suboxone to Methadone, OP referrals 4. Addiction Medicine consultation 5. Benztropine 0.5 mg bid po 6. Haldol Dec 100 mg IM due 09/22/23. 09/12/23 Continue tx Suboxone tapering Reason for continued inpatient stay Substantial Risk for: rapid decompensation Time Spent With Patient Time: Total time managing care of this patient today ____ minutes.
[2023-09-12] MEDS: hydrOXYzine HCL 25 MG TABLET PO ×2 (13:14→19:30)
[2023-09-12] MEDS: Benzocaine 20 % Oral Gel 9 GM TUBE 1 APPL MUCOUS MEM (15:32)
[2023-09-12 20:00] VITALS: BP 124/84; PULSE 70; RESP 18; TEMP 36.6; O2SAT 100
[2023-09-12] MEDS: QUEtiapine Fumarate 100 MG TABLET PO (20:24)
[2023-09-13 08:00] VITALS: BP 141/96; PULSE 77; RESP 14; TEMP 35.9; O2SAT 100
[2023-09-13] MEDS: Thiamine HCL 100 MG TABLET PO (08:21)
[2023-09-13] MEDS: Fluticasone/Vilanterol 200/25 BLST.W.DEV 1 PUFF INHALE (08:21)
[2023-09-13] MEDS: Multivitamin TABLET 1 TAB PO (08:21)
[2023-09-13] MEDS: Benztropine Mesylate 0.5 MG TABLET PO ×2 (08:21→21:19)
[2023-09-13] MEDS: cefuroxime axetiL 250 MG TABLET PO ×2 (08:22→21:19)
[2023-09-13] MEDS: Gabapentin 300 MG CAPSULE PO ×3 (08:22→21:18)
[2023-09-13] MEDS: LORazepam 1 MG TABLET PO ×2 (08:23→21:19)
[2023-09-13] MEDS: Topiramate 25 MG TABLET PO ×2 (08:23→21:19)
[2023-09-13] MEDS: Folic Acid 1 MG TABLET PO (08:23)
--- NOTE | 2023-09-13 11:58 | P.PNPSI_ITS ---
Subjective Subjective Date of Service: 09/13/23 Reason For Visit: polysubstance abuse, ptsd, schizoaffective disorde Subjective Notes: Conditional Voluntary and 3 Day Healthcare Proxy: No Guardianship: No Medical Problems Affecting Mental Status: No Interim History: TDN for 09/15. Denies SI/HI/AH/VH Reports she is hoping for acceptance to [facility]. Denies current questions/concerns Suboxone discontinued at pt request. Medication Compliance: Yes Side effects from medications: No Attending Groups: Intermittent Review of Systems Acute medical concerns: No Review of Systems Review of Systems Yes all other systems are reviewed and are negative (denies) Mental Status Exam Mental Status Exam Patient Appearance: Appropriate Patient Orientation: Person, Place, Time and Situation Level of Consciousness: Alert Patient Behavior: Talkative and Good Eye Contact Mood Description: Apprehensive Affect Description: Apprehensive Patient Cognition Impaired: No Ability to Follow Directions: Good Speech Pattern: Spontaneous Speech Memory Description: Episodic Impaired Delusions: Paranoid Ideation Perceptual Disturbances: Depersonalization and Derealization Thought Process: Rumination Thought Content: positive for Circumstantial and positive for Perseveration Depressive Symptoms: Increased Anxiety Judgement: Fair Diagnostics Vital Signs (24Hr): Vital Signs - 24 hr 09/12/23 20:00 Temperature 97.9 F Pulse Rate 70 Respiratory Rate 18 Blood Pressure 124/84 Pulse Oximetry 100 Oxygen Delivery Method Room Air BMI result Body Mass Index 32.4 Labs 09/08/23 16:51 09/08/23 16:51 Labs: Laboratory Results - last 48 hr 09/10/23 09/11/23 12:59 13:37 Chlam trachomat DNA PCR NOT DETECTED HSV I IgG Ab >58.00 H HSV II IgG <0.90 N.gonorrhoeae DNA (PCR) NOT DETECTED Imaging Radiology Impressions: ITS Impressions Cervical Spine CT 09/08/23 18:14 IMPRESSION: There is no acute intracranial process seen. Small polyps in the sinuses as described above. Mild straightening of cervical lordosis likely spasm. No visible acute fracture, dislocation or subluxation seen. Head CT 09/08/23 18:14 IMPRESSION: There is no acute intracranial process seen. Small polyps in the sinuses as described above. Mild straightening of cervical lordosis likely spasm. No visible acute fracture, dislocation or subluxation seen. Medications Medications Current Medications Acetaminophen (Acetaminophen 325 Mg Tablet) 650 mg PO Q6H PRN PRN Reason: Headache/Pain Mild Scale (1-3) Last Admin: 09/11/23 16:06 Dose: 650 mg Al Hydroxide/Mg Hydroxide (Magnesium Hydrox/Alum Hydrox 30 Ml Oral.Susp) 30 ml PO Q6H PRN PRN Reason: Heartburn/Nausea Albuterol Sulfate (Albuterol Sulfate 90 Mcg 8 Gm Inhaler) 2 puff INHALE RQ6H PRN PRN Reason: Wheezing Benzocaine (Benzocaine 20 % Oral Gel 9 Gm Tube) 1 appl MUCOUS MEM TID PRN; Protocol PRN Reason: oral pain Last Admin: 09/12/23 15:32 Dose: 1 appl Benztropine Mesylate (Benztropine Mesylate 0.5 Mg Tablet) 0.5 mg PO BID [facility] Last Admin: 09/13/23 08:21 Dose: 0.5 mg Cefuroxime Axetil (Cefuroxime Axetil 250 Mg Tablet) 250 mg PO BID [facility] Stop: 09/13/23 21:01 Last Admin: 09/13/23 08:22 Dose: 250 mg Fluticasone/Vilanterol (Fluticasone/Vilanterol 200/25 Blst.W.Dev) 1 puff INHALE RDAILY [facility] Last Admin: 09/13/23 08:21 Dose: 1 puff Folic Acid (Folic Acid 1 Mg Tablet) 1 mg PO DAILY [facility] Last Admin: 09/13/23 08:23 Dose: 1 mg Gabapentin (Gabapentin 300 Mg Capsule) 300 mg PO TID [facility] Last Admin: 09/13/23 08:22 Dose: 300 mg Hydroxyzine HCl (Hydroxyzine Hcl 25 Mg Tablet) 25 mg PO Q6H PRN PRN Reason: Anxiety Last Admin: 09/12/23 19:30 Dose: 25 mg Lorazepam (Lorazepam 1 Mg Tablet) 1 mg PO BID [facility] Last Admin: 09/13/23 08:23 Dose: 1 mg Magnesium Hydroxide (Milk Of Magnesia 30 Ml Oral.Susp) 30 ml PO DAILY PRN PRN Reason: Constipation Multivitamins/Vitamin C (Multivitamin Tablet) 1 tab PO DAILY [facility] Last Admin: 09/13/23 08:21 Dose: 1 tab Nicotine Polacrilex (Nicotine Polacrilex 2 Mg Gum) 4 mg BUCCAL Q2H PRN PRN Reason: Nicotine Cravings Quetiapine Fumarate (Quetiapine Fumarate 100 Mg Tablet) 100 mg PO BEDTIME [facility] Last Admin: 09/12/23 20:24 Dose: 100 mg Thiamine HCl (Thiamine Hcl 100 Mg Tablet) 100 mg PO DAILY [facility] Last Admin: 09/13/23 08:21 Dose: 100 mg Topiramate (Topiramate 25 Mg Tablet) 25 mg PO BID [facility] Last Admin: 09/13/23 08:23 Dose: 25 mg Trazodone HCl (Trazodone Hcl 50 Mg Tablet) 50 mg PO BEDTIME MRX1 PRN PRN Reason: Insomnia Allergies Allergies Allergy/AdvReac Type Severity Reaction Status Date / Time dog dander [DOG DANDER] Allergy Intermediate ITCHY EYES Verified 09/08/23 14:58 pollen extracts [POLLEN] Allergy Intermediate STUFFY, Verified 09/08/23 14:58 ITCHY EYES Assessment & Plan Assessment & Plan (1) PTSD (post-traumatic stress disorder): Status: Acute Code(s): F43.10 - Post-traumatic stress disorder, unspecified (2) Schizoaffective disorder, bipolar type: Status: Acute Code(s): F25.0 - Schizoaffective disorder, bipolar type (3) Polysubstance abuse: Status: Acute Code(s): F19.10 - Other psychoactive substance abuse, uncomplicated Plan Schizoaffective Disorder, PTSD, Polysubstance Use Disorder. Plan: 1. Admit, Section 12B, pt changed to CV and signed a TDN effective 09/13/23 2. Re-establish regime 3. Discharge planning, pt asking for a half-way, a change from Suboxone to Methadone, OP referrals 4. Addiction Medicine consultation 5. Benztropine 0.5 mg bid po 6. Haldol Dec 100 mg IM due 09/22/23. 09/10 Continue current regime. 09/12 Continue tx Reason for continued inpatient stay Substantial Risk for: rapid decompensation Time Spent With Patient Time: Total time managing care of this patient today ____ minutes.
[2023-09-13] MEDS: Acetaminophen 325 MG TABLET 650 MG PO (14:46)
[2023-09-13 20:00] VITALS: BP 135/81; PULSE 84; RESP 14; TEMP 36.5; O2SAT 99
[2023-09-13] MEDS: QUEtiapine Fumarate 100 MG TABLET PO (21:19)
[2023-09-14 07:53] VITALS: BP 108/61; PULSE 70; RESP 18; TEMP 36.4; O2SAT 96
[2023-09-14] MEDS: Multivitamin TABLET 1 TAB PO (08:29)
[2023-09-14] MEDS: Folic Acid 1 MG TABLET PO (08:29)
[2023-09-14] MEDS: Benztropine Mesylate 0.5 MG TABLET PO ×2 (08:29→21:44)
[2023-09-14] MEDS: LORazepam 1 MG TABLET PO ×2 (08:29→21:44)
[2023-09-14] MEDS: Gabapentin 300 MG CAPSULE PO ×3 (08:29→21:44)
[2023-09-14] MEDS: Topiramate 25 MG TABLET PO ×2 (08:29→21:44)
[2023-09-14] MEDS: Thiamine HCL 100 MG TABLET PO (08:29)
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
[2023-09-14] MEDS: hydrOXYzine HCL 25 MG TABLET PO (10:52)
[2023-09-14 20:00] VITALS: BP 102/53; PULSE 83; RESP 15; TEMP 36.4; O2SAT 99
[2023-09-14] MEDS: QUEtiapine Fumarate 200 MG TABLET PO (21:44)
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
[2023-09-15 08:00] VITALS: BP 104/54; PULSE 74; RESP 17; TEMP 36.8; O2SAT 97
[2023-09-15] MEDS: Gabapentin 300 MG CAPSULE PO ×3 (08:23→20:26)
[2023-09-15] MEDS: Multivitamin TABLET 1 TAB PO (08:23)
[2023-09-15] MEDS: Benztropine Mesylate 0.5 MG TABLET PO ×2 (08:23→20:26)
[2023-09-15] MEDS: Thiamine HCL 100 MG TABLET PO (08:23)
[2023-09-15] MEDS: LORazepam 1 MG TABLET PO ×2 (08:24→20:40)
[2023-09-15] MEDS: Folic Acid 1 MG TABLET PO (08:24)
[2023-09-15] MEDS: Topiramate 25 MG TABLET PO ×2 (08:24→20:26)
--- NOTE | 2023-09-15 08:42 | P.PNPSI_ITS ---
Subjective Subjective Date of Service: 09/15/23 Reason For Visit: polysubstance abuse, ptsd, schizoaffective disorde Interim History: met with patient. Discussed with Nursing. Three day notice on Saturday09/16/2023. Overall reports no hallucinations today and feels positive regarding medication changes made yesterday. Sleep good. Denies feeling paranoid. Feeling safe on the unit. No SI. Medication Compliance: Yes Side effects from medications: No Attending Groups: Intermittent Review of Systems Acute medical concerns: No Review of Systems Review of Systems unremarkable Mental Status Exam Mental Status Exam Narrative: Pleasant. Engaged. Fair self-care. [place]. Listening to music on headphones. Denies depression. Flat affect. No SI. No HI. No hallucinations or paranoia. Insight and judgment fair Diagnostics Vital Signs (24Hr): Vital Signs - 24 hr 09/14/23 20:00 09/15/23 08:00 Temperature 97.6 F 98.2 F Pulse Rate 83 74 Respiratory Rate 15 17 Blood Pressure 102/53 L 104/54 L Pulse Oximetry 99 97 Oxygen Delivery Method Room Air BMI result Body Mass Index 32.4 Labs 09/08/23 16:51 09/08/23 16:51 Imaging Radiology Impressions: ITS Impressions Cervical Spine CT 09/08/23 18:14 IMPRESSION: There is no acute intracranial process seen. Small polyps in the sinuses as described above. Mild straightening of cervical lordosis likely spasm. No visible acute fracture, dislocation or subluxation seen. Head CT 09/08/23 18:14 IMPRESSION: There is no acute intracranial process seen. Small polyps in the sinuses as described above. Mild straightening of cervical lordosis likely spasm. No visible acute fracture, dislocation or subluxation seen. Medications Medications Current Medications Acetaminophen (Acetaminophen 325 Mg Tablet) 650 mg PO Q6H PRN PRN Reason: Headache/Pain Mild Scale (1-3) Last Admin: 09/13/23 14:46 Dose: 650 mg Al Hydroxide/Mg Hydroxide (Magnesium Hydrox/Alum Hydrox 30 Ml Oral.Susp) 30 ml PO Q6H PRN PRN Reason: Heartburn/Nausea Albuterol Sulfate (Albuterol Sulfate 90 Mcg 8 Gm Inhaler) 2 puff INHALE RQ6H PRN PRN Reason: Wheezing Benzocaine (Benzocaine 20 % Oral Gel 9 Gm Tube) 1 appl MUCOUS MEM TID PRN; Protocol PRN Reason: oral pain Last Admin: 09/12/23 15:32 Dose: 1 appl Benztropine Mesylate (Benztropine Mesylate 0.5 Mg Tablet) 0.5 mg PO BID [facility] Last Admin: 09/15/23 08:23 Dose: 0.5 mg Fluticasone/Vilanterol (Fluticasone/Vilanterol 200/25 Blst.W.Dev) 1 puff INHALE RDAILY [facility] Last Admin: 09/15/23 08:25 Dose: Not Given Folic Acid (Folic Acid 1 Mg Tablet) 1 mg PO DAILY [facility] Last Admin: 09/15/23 08:24 Dose: 1 mg Gabapentin (Gabapentin 300 Mg Capsule) 300 mg PO TID [facility] Last Admin: 09/15/23 08:23 Dose: 300 mg Hydroxyzine HCl (Hydroxyzine Hcl 25 Mg Tablet) 25 mg PO Q6H PRN PRN Reason: Anxiety Last Admin: 09/14/23 10:52 Dose: 25 mg Lorazepam (Lorazepam 1 Mg Tablet) 1 mg PO BID [facility] Last Admin: 09/15/23 08:24 Dose: 1 mg Magnesium Hydroxide (Milk Of Magnesia 30 Ml Oral.Susp) 30 ml PO DAILY PRN PRN Reason: Constipation Multivitamins/Vitamin C (Multivitamin Tablet) 1 tab PO DAILY [facility] Last Admin: 09/15/23 08:23 Dose: 1 tab Nicotine Polacrilex (Nicotine Polacrilex 2 Mg Gum) 4 mg BUCCAL Q2H PRN PRN Reason: Nicotine Cravings Quetiapine Fumarate (Quetiapine Fumarate 50 Mg Tablet) 50 mg PO Q6H PRN PRN Reason: psychosis/hallucinations Quetiapine Fumarate (Quetiapine Fumarate 200 Mg Tablet) 200 mg PO BEDTIME [facility] Last Admin: 09/14/23 21:44 Dose: 200 mg Thiamine HCl (Thiamine Hcl 100 Mg Tablet) 100 mg PO DAILY [facility] Last Admin: 09/15/23 08:23 Dose: 100 mg Topiramate (Topiramate 25 Mg Tablet) 25 mg PO BID [facility] Last Admin: 09/15/23 08:24 Dose: 25 mg Trazodone HCl (Trazodone Hcl 50 Mg Tablet) 50 mg PO BEDTIME MRX1 PRN PRN Reason: Insomnia Allergies Allergies Allergy/AdvReac Type Severity Reaction Status Date / Time dog dander [DOG DANDER] Allergy Intermediate ITCHY EYES Verified 09/08/23 14:58 pollen extracts [POLLEN] Allergy Intermediate STUFFY, Verified 09/08/23 14:58 ITCHY EYES Assessment & Plan Assessment & Plan (1) PTSD (post-traumatic stress disorder): Status: Acute Code(s): F43.10 - Post-traumatic stress disorder, unspecified (2) Schizoaffective disorder, bipolar type: Status: Acute Code(s): F25.0 - Schizoaffective disorder, bipolar type (3) Polysubstance abuse: Status: Acute Code(s): F19.10 - Other psychoactive substance abuse, uncomplicated Plan Schizoaffective Disorder, PTSD, Polysubstance Use Disorder. Plan: 1. Admit, Section 12B, pt changed to CV and signed a TDN effective 09/13/23 2. Re-establish regime 3. Discharge planning, pt asking for a long term, a change from Suboxone to Methadone, OP referrals 4. Addiction Medicine consultation 5. Benztropine 0.5 mg bid po 6. Haldol Dec 100 mg IM due 09/22/23. 09/10 Continue current regime. 09/12 Continue tx 09/14/23: Does endorse intermittent visual hallucinations of shadows. Overall we discussed increasing Seroquel to 200 mg at bedtime and introducing p.r.n. dosing. 09/15/2023: No changes to recently increase medications Reason for continued inpatient stay Substantial Risk for: rapid decompensation Time Spent With Patient Time: Total time managing care of this patient today ____ minutes.
[2023-09-15] MEDS: hydrOXYzine HCL 25 MG TABLET PO ×2 (12:25→20:26)
[2023-09-15 20:00] VITALS: BP 138/87; PULSE 114; RESP 18; TEMP 36.9; O2SAT 98
[2023-09-15] MEDS: QUEtiapine Fumarate 200 MG TABLET PO (20:26)
[2023-09-15] MEDS: QUEtiapine Fumarate 50 MG TABLET PO (20:36)
[2023-09-16 08:06] VITALS: BP 134/92; PULSE 75; RESP 16; TEMP 36.4; O2SAT 100
[2023-09-16] MEDS: Topiramate 25 MG TABLET PO (09:30)
[2023-09-16] MEDS: Thiamine HCL 100 MG TABLET PO (09:30)
[2023-09-16] MEDS: Gabapentin 300 MG CAPSULE PO (09:30)
[2023-09-16] MEDS: Multivitamin TABLET 1 TAB PO (09:30)
[2023-09-16] MEDS: Folic Acid 1 MG TABLET PO (09:30)
[2023-09-16] MEDS: Benztropine Mesylate 0.5 MG TABLET PO (09:30)
[2023-09-16] MEDS: LORazepam 1 MG TABLET PO (09:30)
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
== END 2023-09-16 10:54 | disposition home or self-care (01) | DRG 750 ==
LOC: HO.ED 09-09 08:34 → HO.PM5 09-09 13:49
PROVIDERS: Emergency Medicine; Physician Assistant; Admitting Provider Clinical Nurse Specialist Psychiatric/Mental Health, Adult; Emergency Provider Emergency Medicine; Visit Provider Clinical Nurse Specialist Psychiatric/Mental Health, Adult
DX: F25.0 Schizoaffective disorder, bipolar type (principal); F11.20 Opioid dependence, uncomplicated; F43.10 Post-traumatic stress disorder, unspecified; F19.10 Other psychoactive substance abuse, uncomplicated; Z63.0 Problems in relationship with spouse or partner; Z59.02 Unsheltered homelessness; Z79.899 Other long term (current) drug therapy
CPT/HCPCS: 36415; 70450; 72125; 80048; 80061; 80076; 80307; 81001; 81025; 82607; 82746; 83036; 83690; 83735; 84439; 84443; 84484; 84702; 85025; 86695; 86696; 86780; 87389; 87491; 87591; 93005; 99285; J2060; S9485

== ENCOUNTER → 2023-09-08 15:45 | Outpatient (BNV) | payer MEDICAID, SELFPAY | PROVIDERS: Emergency Provider Emergency Medicine; Visit Provider Internal Medicine Cardiovascular Disease | DX: R55 Syncope and collapse (principal) | CPT/HCPCS: 93010 ==

== ENCOUNTER → 2023-09-09 12:58 | Outpatient (BNV) | payer OTHER, SELFPAY | PROVIDERS: Admitting Provider Clinical Nurse Specialist Psychiatric/Mental Health, Adult; Emergency Provider Emergency Medicine; Visit Provider Nurse Practitioner Psychiatric/Mental Health | DX: F19.10 Other psychoactive substance abuse, uncomplicated (principal) | CPT/HCPCS: 99499 ==

== ENCOUNTER → 2023-09-09 12:58 | Outpatient (BNV) | payer OTHER, SELFPAY | PROVIDERS: Admitting Provider Clinical Nurse Specialist Psychiatric/Mental Health, Adult; Emergency Provider Emergency Medicine; Visit Provider Clinical Nurse Specialist Psychiatric/Mental Health, Adult | DX: F25.0 Schizoaffective disorder, bipolar type (principal); F19.10 Other psychoactive substance abuse, uncomplicated; F43.11 Post-traumatic stress disorder, acute | CPT/HCPCS: 99231; 99232; 99233 ==

== ENCOUNTER 2023-11-21 03:42 | Inpatient (IN) | payer OTHER, SELFPAY ==
[2023-11-21 03:55] VITALS: BP 117/80; PULSE 75; RESP 15; TEMP 36.4; O2SAT 99; BMI 34.6
--- NOTE | 2023-11-21 03:58 | ECG_ITS ---
Test Reason : AMS Blood Pressure : / mmHG Vent. Rate : 084 BPM Atrial Rate : 084 BPM P-R Int : 132 ms QRS Dur : 076 ms QT Int : 392 ms P-R-T Axes : 059 066 033 degrees QTc Int : 463 ms Normal sinus rhythm with sinus arrhythmia Normal ECG No previous ECGs available Referred By: Leesa Batista Electronically Signed By:NAYA ZAVALETA MD
--- NOTE | 2023-11-21 04:00 | ED.GENADULT ---
HPI - General Adult General Chief complaint: Altered Mental Status Stated complaint: ams Time Seen by Provider: 11/21/23 03:54 Source: EMS Mode of arrival: EMS Limitations: other History of Present Illness ED Provider: Dr. Leesa Batista HPI narrative: Patient comes to the emergency room via ambulance. Patient was found wandering in [place] by police department. Patient does not have an ID with her, patient is not talking. Not answering any questions. Not following commands although patient is completely awake. At this time, we do not know the patient's name either. Patient seems unharmed. Related Data Allergies Allergy/AdvReac Type Severity Reaction Status Date / Time Unable to Assess Allergy Verified 11/21/23 03:56 Review of Systems Review of Systems: Yes Other (Not answering questions) Physical Exam ED Vital Signs: Vital Signs - 24 hr 11/21/23 03:55 11/21/23 05:49 11/21/23 06:24 Temperature 97.5 F Pulse Rate 75 82 81 Respiratory Rate 15 22 H 14 Blood Pressure 117/80 105/69 103/72 Pulse Oximetry 99 100 98 Oxygen Delivery Method Room Air Room Air Room Air BMI result Body Mass Index 34.6 Const Other: Appearance: Alert. No acute distress, staring blankly into space, not answering questions Eyes: Pupils equal, round and reactive to light. ENT: Pharynx normal. Neck: Normal inspection. Neck supple. No lymph nodes noted. No crepitus CVS: Normal heart rate and rhythm. Pulses normal. Normal S1 and S2 Respiratory: No respiratory distress. Breath sounds normal. No Wheezing. No rales Abdomen: Soft and nontender. No rigidity. No distention. Skin: Skin warm and dry. Normal skin color. Normal skin turgor. Extremities: No lower extremity edema. No Lacerations. No Rash Neuro: Unable to participating cranial nerve assessment Psych: calm,, flat affect, not answering questions, staring blankly into space Course Course Course Narrative: All of patient's labs pending. Medical Decision Making Medical Decision Making [facility] Narrative: I was informed by the patient's nurse that the patient is refusing to get labs done -We still do not know the patient's real name. -patient is on a one-to-one -we have attempted multiple times to obtain labs, patient unwilling to talk move, patient almost catatonic -I spoke with the care team, they trying to speak with the patient. However, no success. Patient not talking. -sign-out given to my colleague Dr. Smith Differential Diagnosis Differential Diagnoses: The differential diagnosis associated with the presentation includes (Psychiatric disorder?) Admission/Observation Consideration of admission/observation: Escalation of care including admission/observation considered (Patient will likely need psychiatric care.) Discharge Plan Discharge Clinical Impression: Altered mental status Patient Disposition: Still a Patient
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
[2023-11-21 05:49] VITALS: BP 105/69; PULSE 82; RESP 22; O2SAT 100
[2023-11-21 06:24] VITALS: BP 103/72; PULSE 81; RESP 14; O2SAT 98
--- NOTE | 2023-11-21 07:58 | MHC.EDTECH ---
[facility] CALLED FOR ASSISTANCE TO HELP IDENTIFY THIS PT AT REQUEST OF DR APODACA, THIS PT IS AMS AND IS UNABLE OR NOT FORTHCOMING WITH NAME AND FOR ACCURATE IDENTIFICATION. KENNETH ANSWERS FROM INVESTIGATIONS AND AGREES TO SEND SOMEONE TO HELP, POSSIBLY ID WITH [facility].
--- NOTE | 2023-11-21 08:20 | PC.NURSE ---
pt is a difficult stick - labs hemolyzed. tech bedside obtaining repeat lab work at this time.
--- NOTE | 2023-11-21 08:21 | PC.NURSE ---
attempted to obtain lab work and urine sample. pt seemingly distraught at first. not answering questions. continuously shaking head no. but then proceeded to state, i'm not giving blood. i only trust god. and then stated that she did not have to urinate at this time. attempted to offer pt water and food but she refused. will reattempt shortly. provider notified/aware. pt otherwise now resting comfortably in no apparent distress. waiting to speak w/ care team at this time. no sob/wob noted. respirations even/unlabored. plan of care ongoing. call fernández placed within reach.
[2023-11-21 09:51] VITALS: BP 114/69; PULSE 83; RESP 16; TEMP 36.8; O2SAT 98
[2023-11-21 09:57] LABS: MANUAL DIFF FLAG NO
--- NOTE | 2023-11-21 10:00 | PC.NURSE ---
pt agreeable to blood work. labs/urine obtained/sent to [facility]. bedside speaking w/ pt at this time.
[2023-11-21 10:02] LABS: Basophils Absolute Auto 0.1 X10*3/uL (0.0-0.2); Basophils Percent Auto 0.6 % (0-2); Eosinophils Percent Auto 0.3 % (0-4); Hematocrit 37.5 % (37.0-47.0); Hemoglobin 12.5 g/dl (12.0-16.0); Imm Gran Abs Auto 0.04 X10*3/uL (0.00-0.03); Imm Gran Pct Auto 0.5 % (0.0-0.4); Lymphocytes Percent Auto 24.7 % (20-40); Mean Corpuscular HGB Conc 33.3 g/dl (31.0-35.0); Mean Corpuscular Hemoglobin 26.2 pg (27.0-33.0); Mean Corpuscular Volume 78.6 fL (80.0-98.0); Mean Platelet Volume 9.8 fL (9.4-12.3); Monocytes Absolute Auto 0.5 X10*3/uL (0.1-1.2); Monocytes Percent Auto 6.8 % (2-11); Neutrophils Absolute Auto 5.4 x10*3/uL (2.0-8.3); Neutrophils Percent Auto 67.1 % (45-73); Platelet Count 252 X10*3/uL (160-400); Red Blood Count 4.77 X10*6/uL (4.20-5.50); Red Cell Distribution Width 15.6 % (11.0-16.0)
[2023-11-21 10:06] LABS: Ammonia 57 umol/L (13-55)
[2023-11-21 10:09] LABS: Appearance Urine Clear; Color Urine Yellow; Glucose Urine UA Negative (Negative); Leukocyte Esterase Urine Negative (Negative); Nitrite Urine Negative (Negative); PH 5.5 (5.0-9.0); Specific Gravity - Urine 1.025 (1.005-1.025); UMIC TRIGGER UACC YES; Urine Blood Negative (Negative); Urine Ketones 80 mg/dL (Negative); Urine Protein 30 (1+) mg/dL (Neg-Trace)
[2023-11-21 10:18] LABS: Amphetamine Screen Urine Not Detected (Not Detect); Barbiturates, Urine Not Detected (Not Detect); Benzodiazepines Screen Urine Not Detected (Not Detect); Buprenorphine Scr Not Detected (Not Detect); Cannabinoid Screen Urine Not Detected (Not Detect); Cocaine Screen Urine POSITIVE (Not Detect); Fentanyl, urine Not Detected (Not Detect); Methadone Screen, Urine Not Detected (Not Detect); Opiate Screen Urine Not Detected (Not Detect); Oxycodone Screen Urine Not Detected (Not Detect); Phencyclidine Screen Urine Not Detected (Not Detect)
[2023-11-21 10:21] LABS: Alanine Aminotransferase 21 U/L (0-31); Albumin Level 4.7 g/dL (3.5-5.0); Alkaline Phosphatase 78 U/L (39-117); Anion Gap 15 (12-20); Aspartate Amino Transferase 21 U/L (5-31); Bilirubin Direct 0.2 mg/dL (0.0-0.5); Bilirubin Total 0.7 mg/dL (0.0-1.0); Blood Urea Nitrogen 19 mg/dL (9-16); Calcium 9.7 mg/dL (8.4-10.2); Carbon Dioxide 19 mmol/L (22-29); Chloride 108 mmol/L (96-108); Creatinine Clr Calc Pharmacy 115.9; Estimated Glomerular Filt Rate > 60; Ethanol < 10 mg/dL; Glucose Random 106 mg/dL (60-115); Magnesium 2.1 mg/dL (1.6-2.6); Potassium 3.5 mmol/L (3.3-5.1); Sodium 138 mmol/L (135-145); Total Protein 7.6 g/dL (6.5-8.0); Troponin-I High Sensitivity < 2.7 ng/L (<3.5-17.0)
[2023-11-21 10:21] LABS: Bacteria Urine Trace (None Seen); Hyaline Casts Urine 0-2 /LPF (0-2); RBC Urine 0-2 /HPF (0-2); WBC Urine 0-5 /HPF (0-5)
[2023-11-21 10:36] LABS: HCG Quantitative < 2 mIU/mL; TSH reflex Free T4 1.18 uIU/mL (0.32-4.0)
[2023-11-21 11:32] LABS: Acetaminophen LAB < 3 mcg/mL (<30); Salicylate < 5.0 mg/dL (15-30)
--- NOTE | 2023-11-21 12:06 | PC.NURSE ---
report given to ELVI Rea in the pod at this time.
--- NOTE | 2023-11-21 12:09 | PC.NURSE ---
pt refused medication administration. provider aware.
--- NOTE | 2023-11-21 14:08 | PC.NURSE ---
Assumed care of patient 1230. Patient ambulated over to pod by ELVI Randhawa and Security. pt appears disoriented, confused, unable to answer basic questions. Pt was re-directed to her bed where she laid down and went to sleep. pt is currently laying in bed, mumbling under her breath, she continues to be unable to answer questions
[2023-11-21 15:23] VITALS: BP 113/78; PULSE 75; RESP 18; TEMP 36.8; O2SAT 98
[2023-11-21] MEDS: LORazepam 1 MG TABLET PO ×3 (15:51→20:20)
[2023-11-21] MEDS: Gabapentin 300 MG CAPSULE PO ×2 (15:51→20:20)
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
[2023-11-21 20:00] VITALS: BP 118/65; PULSE 90; RESP 16; TEMP 36.7; O2SAT 99
[2023-11-21] MEDS: QUEtiapine Fumarate 200 MG TABLET PO (20:20)
[2023-11-21] MEDS: Topiramate 25 MG TABLET PO (20:20)
[2023-11-22] MEDS: hydrOXYzine HCL 25 MG TABLET PO (05:57)
[2023-11-22] MEDS: LORazepam 1 MG TABLET PO ×2 (06:16→09:07)
--- NOTE | 2023-11-22 06:31 | PC.NURSE ---
At approximately 0550, Leah began wailing and crying, inconsolable. She was weeping so hard it was difficult for her to catch her breath. This internal communications writer and an MHC attempted to calm Leah, but it was apparent she was not able to use coping skills at that time. This internal communications writer administered PRN Atarax. It was this internal communications writer's opinion that this would not be sufficient. electrician control equipment was contacted; a one time order for 1 mg Ativan was obtained and administered. As of the time of this writing, the patient is quiet in bed, with her eyes closed and regular respirations.
[2023-11-22] MEDS: Gabapentin 300 MG CAPSULE PO ×3 (09:07→20:54)
[2023-11-22] MEDS: Topiramate 25 MG TABLET PO ×2 (09:07→20:54)
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
[2023-11-22] MEDS: LORazepam 0.5 MG TABLET 1.5 MG PO ×3 (12:19→20:53)
[2023-11-22 20:02] VITALS: BP 104/57; PULSE 97; RESP 14; TEMP 36.8; O2SAT 95
[2023-11-22] MEDS: QUEtiapine Fumarate 200 MG TABLET PO (20:53)
[2023-11-23] MEDS: Gabapentin 300 MG CAPSULE PO ×3 (09:06→21:17)
[2023-11-23] MEDS: LORazepam 0.5 MG TABLET 1.5 MG PO ×3 (09:06→17:52)
[2023-11-23] MEDS: Topiramate 25 MG TABLET PO ×2 (09:06→21:17)
[2023-11-23 12:15] VITALS: BP 125/81; PULSE 103; RESP 20; TEMP 36.7; O2SAT 99
--- NOTE | 2023-11-23 19:17 | P.PNPSI_ITS ---
Subjective Subjective Date of Service: 11/23/23 Reason For Visit: psychosis Interim History: more verbal today than yesterday, but increased RONNELL and terse. appears to be praying, denies any problems, most focused on when she may be able to discharge. blames substance use for her Sx. per staff, isolative, no complaints. flat, withdrawn, guarded. slept about 9 hours. praying. taking showers. Mental Status Exam Mental Status Exam Narrative: lying prone in bed, leaning on elbows, as if praying. PMR, little eye blink, prolonged stare. adequately dressed and groomed in hospital attire. cooperative. speech nml rater, incr loudness, incr RONNELL. affect blunted. mood not assessed, no SI/HI/AVH expressed. Diagnostics Vital Signs (24Hr): Vital Signs - 24 hr 11/22/23 20:02 11/23/23 12:15 Temperature 98.2 F 98.1 F Pulse Rate 97 103 H Respiratory Rate 14 20 Blood Pressure 104/57 L 125/81 Pulse Oximetry 95 99 Oxygen Delivery Method Room Air Room Air BMI result Body Mass Index 34.6 Labs 11/21/23 09:49 11/21/23 09:49 Medications Medications Current Medications Acetaminophen (Acetaminophen 325 Mg Tablet) 650 mg PO Q6H PRN PRN Reason: Headache/Pain Mild Scale (1-3) Al Hydroxide/Mg Hydroxide (Magnesium Hydrox/Alum Hydrox 30 Ml Oral.Susp) 30 ml PO Q6H PRN PRN Reason: Heartburn/Nausea Albuterol Sulfate (Albuterol Sulfate 90 Mcg 8 Gm Inhaler) 2 puff INHALE Q6H PRN PRN Reason: wheezing Gabapentin (Gabapentin 300 Mg Capsule) 300 mg PO TID [facility] Last Admin: 11/23/23 14:40 Dose: 300 mg Hydroxyzine HCl (Hydroxyzine Hcl 25 Mg Tablet) 25 mg PO Q6H PRN PRN Reason: Anxiety Last Admin: 11/22/23 05:57 Dose: 25 mg Lorazepam (Lorazepam 1 Mg Tablet) 2 mg PO QID [facility] Magnesium Hydroxide (Milk Of Magnesia 30 Ml Oral.Susp) 30 ml PO DAILY PRN PRN Reason: Constipation Nicotine (Nicotine 21 Mg Patch.Td24) 21 mg TRANSDERMA DAILY [facility] Last Admin: 11/23/23 09:08 Dose: Not Given Nicotine Polacrilex (Nicotine Polacrilex 2 Mg Gum) 4 mg BUCCAL Q2H PRN PRN Reason: Nicotine Cravings Quetiapine Fumarate (Quetiapine Fumarate 200 Mg Tablet) 200 mg PO BEDTIME [facility] Last Admin: 11/22/23 20:53 Dose: 200 mg Topiramate (Topiramate 25 Mg Tablet) 25 mg PO BID [facility] Last Admin: 11/23/23 09:06 Dose: 25 mg Trazodone HCl (Trazodone Hcl 50 Mg Tablet) 50 mg PO BEDTIME MRX1 PRN PRN Reason: Insomnia Allergies Allergies Allergy/AdvReac Type Severity Reaction Status Date / Time dog dander [DOG DANDER] Allergy Intermediate ITCHY EYES Verified 09/08/23 14:58 pollen extracts [POLLEN] Allergy Intermediate STUFFY, Verified 09/08/23 14:58 ITCHY EYES Assessment & Plan Assessment & Plan (1) PTSD (post-traumatic stress disorder): Status: Acute Code(s): F43.10 - Post-traumatic stress disorder, unspecified (2) Schizoaffective disorder, bipolar type: Status: Acute Code(s): F25.0 - Schizoaffective disorder, bipolar type (3) Polysubstance abuse: Status: Acute Code(s): F19.10 - Other psychoactive substance abuse, uncomplicated (4) Catatonia associated with another mental disorder: Status: Acute Code(s): F06.1 - Catatonic disorder due to known physiological condition Plan 11/21: continue/restart home medications for schizoaffective disorder, PTSD. increase ativan from 1 BID to 1.5 QID for catatonia. abstain from substances, supportive care for cocaine withdrawal. 11/22: more interactive today, still incr RONNELL and terse. increase ativan to 2 QID. Reason for continued inpatient stay Substantial Risk for: inability to function and rapid decompensation Time Spent With Patient Time: Total time managing care of this patient today ____ minutes.
[2023-11-23] MEDS: hydrOXYzine HCL 25 MG TABLET PO (19:21)
[2023-11-23 19:50] VITALS: BP 104/56; PULSE 86; RESP 16; TEMP 36.9; O2SAT 98
[2023-11-23] MEDS: QUEtiapine Fumarate 200 MG TABLET PO (21:17)
[2023-11-23] MEDS: LORazepam 1 MG TABLET 2 MG PO (21:17)
[2023-11-24] MEDS: Topiramate 25 MG TABLET PO ×2 (09:04→23:18)
[2023-11-24] MEDS: LORazepam 1 MG TABLET 2 MG PO (09:04)
[2023-11-24] MEDS: Acetaminophen 325 MG TABLET 650 MG PO ×2 (09:04→15:39)
[2023-11-24] MEDS: Gabapentin 300 MG CAPSULE PO ×3 (09:05→23:21)
[2023-11-24 10:20] VITALS: BP 104/76; PULSE 86; RESP 16; TEMP 36.6; O2SAT 98
[2023-11-24] MEDS: LORazepam 0.5 MG TABLET 1.5 MG PO ×3 (12:54→18:19)
[2023-11-24] MEDS: hydrOXYzine HCL 25 MG TABLET PO (15:39)
--- NOTE | 2023-11-24 17:14 | HO.PSYCHPN ---
Subjective Subjective Date of Service: 11/24/23 Reason For Visit: psychosis Interim History: pt more verbal today. linear, logical. still prolonged staring. wants to DC weds. informed will need to taper ativan. per staff, flat, withdrawn. taking meds. wailing, self dialogue while lying on bed. up at 0230. slept 9 hours. Mental Status Exam Mental Status Exam Narrative: up and about the unit. prolonged stare. adequately dressed and groomed in hospital attire. cooperative. speech nml rate, loudness, RONNELL. affect constricted. mood not assessed, no SI/HI/AVH expressed. Diagnostics Vital Signs (24Hr): Vital Signs - 24 hr 11/23/23 19:50 Temperature 98.4 F Pulse Rate 86 Respiratory Rate 16 Blood Pressure 104/56 L Pulse Oximetry 98 Oxygen Delivery Method Room Air BMI result Body Mass Index 34.6 Labs 11/21/23 09:49 11/21/23 09:49 Medications Medications Current Medications Acetaminophen (Acetaminophen 325 Mg Tablet) 650 mg PO Q6H PRN PRN Reason: Headache/Pain Mild Scale (1-3) Last Admin: 11/24/23 15:39 Dose: 650 mg Al Hydroxide/Mg Hydroxide (Magnesium Hydrox/Alum Hydrox 30 Ml Oral.Susp) 30 ml PO Q6H PRN PRN Reason: Heartburn/Nausea Albuterol Sulfate (Albuterol Sulfate 90 Mcg 8 Gm Inhaler) 2 puff INHALE Q6H PRN PRN Reason: wheezing Gabapentin (Gabapentin 300 Mg Capsule) 300 mg PO TID [facility] Last Admin: 11/24/23 14:37 Dose: 300 mg Hydroxyzine HCl (Hydroxyzine Hcl 25 Mg Tablet) 25 mg PO Q6H PRN PRN Reason: Anxiety Last Admin: 11/24/23 15:39 Dose: 25 mg Lorazepam (Lorazepam 0.5 Mg Tablet) 1.5 mg PO QID [facility] Stop: 11/24/23 21:01 Last Admin: 11/24/23 17:10 Dose: 1.5 mg Lorazepam (Lorazepam 1 Mg Tablet) 1 mg PO QID [facility] Stop: 11/25/23 21:01 Lorazepam (Lorazepam 0.5 Mg Tablet) 0.5 mg PO QID [facility] Stop: 11/27/23 13:01 Magnesium Hydroxide (Milk Of Magnesia 30 Ml Oral.Susp) 30 ml PO DAILY PRN PRN Reason: Constipation Nicotine (Nicotine 21 Mg Patch.Td24) 21 mg TRANSDERMA DAILY [facility] Last Admin: 11/24/23 09:10 Dose: Not Given Nicotine Polacrilex (Nicotine Polacrilex 2 Mg Gum) 4 mg BUCCAL Q2H PRN PRN Reason: Nicotine Cravings Quetiapine Fumarate (Quetiapine Fumarate 200 Mg Tablet) 200 mg PO BEDTIME [facility] Last Admin: 11/23/23 21:17 Dose: 200 mg Topiramate (Topiramate 25 Mg Tablet) 25 mg PO BID [facility] Last Admin: 11/24/23 09:04 Dose: 25 mg Trazodone HCl (Trazodone Hcl 50 Mg Tablet) 50 mg PO BEDTIME MRX1 PRN PRN Reason: Insomnia Allergies Allergies Allergy/AdvReac Type Severity Reaction Status Date / Time dog dander [DOG DANDER] Allergy Intermediate ITCHY EYES Verified 09/08/23 14:58 pollen extracts [POLLEN] Allergy Intermediate STUFFY, Verified 09/08/23 14:58 ITCHY EYES Assessment & Plan Assessment & Plan (1) PTSD (post-traumatic stress disorder): Status: Acute Code(s): F43.10 - Post-traumatic stress disorder, unspecified (2) Schizoaffective disorder, bipolar type: Status: Acute Code(s): F25.0 - Schizoaffective disorder, bipolar type (3) Polysubstance abuse: Status: Acute Code(s): F19.10 - Other psychoactive substance abuse, uncomplicated (4) Catatonia associated with another mental disorder: Status: Acute Code(s): F06.1 - Catatonic disorder due to known physiological condition Plan 11/21: continue/restart home medications for schizoaffective disorder, PTSD. increase ativan from 1 BID to 1.5 QID for catatonia. abstain from substances, supportive care for cocaine withdrawal. 11/22: more interactive today, still incr RONNELL and terse. increase ativan to 2 QID. 11/23: much more fluid, normal in response times. states she plans to leave on at expiry of 12b. informed will need to rapidly taper ativan, then. taper written through . otherwise continue current mgmt. Reason for continued inpatient stay Substantial Risk for: inability to function and rapid decompensation Time Spent With Patient Time: Total time managing care of this patient today ____ minutes.
[2023-11-24 19:35] VITALS: RESP 16
[2023-11-24] MEDS: QUEtiapine Fumarate 200 MG TABLET PO (23:21)
[2023-11-25] MEDS: Gabapentin 300 MG CAPSULE PO ×2 (09:44→15:38)
[2023-11-25] MEDS: LORazepam 1 MG TABLET PO ×3 (09:44→17:51)
[2023-11-25] MEDS: Topiramate 25 MG TABLET PO (09:44)
[2023-11-25 09:48] VITALS: BP 120/80; PULSE 101; RESP 16; TEMP 36.3; O2SAT 99
--- NOTE | 2023-11-25 17:39 | HO.PSYCHPN ---
Subjective Subjective Date of Service: 11/25/23 Reason For Visit: psychosis Interim History: continues much more able to interact. planning to go on weds. aware of ativan taper. per staff, slept all NOC. no issues. Mental Status Exam Mental Status Exam Narrative: up and about the unit. less stareful. adequately dressed and groomed in hospital attire. cooperative. speech nml rate, loudness, RONNELL. affect constricted. mood euthymic, no SI/HI/AVH expressed. Diagnostics Vital Signs (24Hr): Vital Signs - 24 hr 11/24/23 19:35 11/25/23 09:48 Temperature 97.3 F Pulse Rate 101 H Respiratory Rate 16 16 Blood Pressure 120/80 Pulse Oximetry 99 Oxygen Delivery Method Room Air BMI result Body Mass Index 34.6 Labs 11/21/23 09:49 11/21/23 09:49 Medications Medications Current Medications Acetaminophen (Acetaminophen 325 Mg Tablet) 650 mg PO Q6H PRN PRN Reason: Headache/Pain Mild Scale (1-3) Last Admin: 11/24/23 15:39 Dose: 650 mg Al Hydroxide/Mg Hydroxide (Magnesium Hydrox/Alum Hydrox 30 Ml Oral.Susp) 30 ml PO Q6H PRN PRN Reason: Heartburn/Nausea Albuterol Sulfate (Albuterol Sulfate 90 Mcg 8 Gm Inhaler) 2 puff INHALE Q6H PRN PRN Reason: wheezing Gabapentin (Gabapentin 300 Mg Capsule) 300 mg PO TID [facility] Last Admin: 11/25/23 15:38 Dose: 300 mg Hydroxyzine HCl (Hydroxyzine Hcl 25 Mg Tablet) 25 mg PO Q6H PRN PRN Reason: Anxiety Last Admin: 11/24/23 15:39 Dose: 25 mg Lorazepam (Lorazepam 1 Mg Tablet) 1 mg PO QID [facility] Stop: 11/25/23 21:01 Last Admin: 11/25/23 13:47 Dose: 1 mg Lorazepam (Lorazepam 0.5 Mg Tablet) 0.5 mg PO QID [facility] Stop: 11/27/23 13:01 Magnesium Hydroxide (Milk Of Magnesia 30 Ml Oral.Susp) 30 ml PO DAILY PRN PRN Reason: Constipation Nicotine (Nicotine 21 Mg Patch.Td24) 21 mg TRANSDERMA DAILY [facility] Last Admin: 11/25/23 09:44 Dose: Not Given Nicotine Polacrilex (Nicotine Polacrilex 2 Mg Gum) 4 mg BUCCAL Q2H PRN PRN Reason: Nicotine Cravings Quetiapine Fumarate (Quetiapine Fumarate 200 Mg Tablet) 200 mg PO BEDTIME [facility] Last Admin: 11/24/23 23:21 Dose: 200 mg Topiramate (Topiramate 25 Mg Tablet) 25 mg PO BID [facility] Last Admin: 11/25/23 09:44 Dose: 25 mg Trazodone HCl (Trazodone Hcl 50 Mg Tablet) 50 mg PO BEDTIME MRX1 PRN PRN Reason: Insomnia Allergies Allergies Allergy/AdvReac Type Severity Reaction Status Date / Time dog dander [DOG DANDER] Allergy Intermediate ITCHY EYES Verified 09/08/23 14:58 pollen extracts [POLLEN] Allergy Intermediate STUFFY, Verified 09/08/23 14:58 ITCHY EYES Assessment & Plan Assessment & Plan (1) PTSD (post-traumatic stress disorder): Status: Acute Code(s): F43.10 - Post-traumatic stress disorder, unspecified (2) Schizoaffective disorder, bipolar type: Status: Acute Code(s): F25.0 - Schizoaffective disorder, bipolar type (3) Polysubstance abuse: Status: Acute Code(s): F19.10 - Other psychoactive substance abuse, uncomplicated (4) Catatonia associated with another mental disorder: Status: Acute Code(s): F06.1 - Catatonic disorder due to known physiological condition Plan 11/21: continue/restart home medications for schizoaffective disorder, PTSD. increase ativan from 1 BID to 1.5 QID for catatonia. abstain from substances, supportive care for cocaine withdrawal. 11/22: more interactive today, still incr RONNELL and terse. increase ativan to 2 QID. 11/23: much more fluid, normal in response times. states she plans to leave on at expiry of 12b. informed will need to rapidly taper ativan, then. taper written through sats. otherwise continue current mgmt. 11/24: gains maintained. continue ativan taper. discharge weds. Reason for continued inpatient stay Substantial Risk for: inability to function and rapid decompensation Time Spent With Patient Time: Total time managing care of this patient today ____ minutes.
[2023-11-25] MEDS: Acetaminophen 325 MG TABLET 650 MG PO (18:00)
[2023-11-26 08:00] VITALS: BP 101/55; PULSE 75; TEMP 36.7; O2SAT 96
[2023-11-26] MEDS: Topiramate 25 MG TABLET PO ×2 (08:26→20:02)
[2023-11-26] MEDS: Gabapentin 300 MG CAPSULE PO ×3 (08:26→20:01)
[2023-11-26] MEDS: LORazepam 0.5 MG TABLET PO ×4 (08:26→20:02)
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
[2023-11-26 19:59] VITALS: BP 96/58; PULSE 83; RESP 14; TEMP 36.6; O2SAT 97
[2023-11-26] MEDS: QUEtiapine Fumarate 200 MG TABLET PO (20:02)
[2023-11-27] MEDS: LORazepam 0.5 MG TABLET PO (08:47)
[2023-11-27] MEDS: Topiramate 25 MG TABLET PO (08:47)
[2023-11-27] MEDS: Acetaminophen 325 MG TABLET 650 MG PO (08:48)
[2023-11-27] MEDS: Gabapentin 300 MG CAPSULE PO (08:48)
== END 2023-11-27 11:30 | disposition home or self-care (01) | DRG 750 ==
LOC: HO.ED 12:39 → HO.PADLT16 14:12
PROVIDERS: Admitting Provider Psychiatry & Neurology Psychiatry; Emergency Provider Emergency Medicine; Visit Provider Psychiatry & Neurology Psychiatry
DX: F25.0 Schizoaffective disorder, bipolar type (principal); F06.1 Catatonic disorder due to known physiological condition; F43.10 Post-traumatic stress disorder, unspecified; F19.10 Other psychoactive substance abuse, uncomplicated; F14.93 Cocaine use, unspecified with withdrawal; Z62.810 Personal history of physical and sexual abuse in childhood; Z59.02 Unsheltered homelessness; Z87.891 Personal history of nicotine dependence; Z79.899 Other long term (current) drug therapy
CPT/HCPCS: 36415; 80048; 80076; 80143; 80179; 80307; 81001; 82140; 83735; 84443; 84484; 84702; 85025; 93005; 99285; S9485

== ENCOUNTER → 2023-11-21 14:09 | Outpatient (BNV) | payer OTHER, SELFPAY | PROVIDERS: Admitting Provider Psychiatry & Neurology Psychiatry; Emergency Provider Emergency Medicine; Visit Provider Psychiatry & Neurology Psychiatry | DX: F25.0 Schizoaffective disorder, bipolar type (principal); F19.10 Other psychoactive substance abuse, uncomplicated; F43.11 Post-traumatic stress disorder, acute; F06.1 Catatonic disorder due to known physiological condition | CPT/HCPCS: 99231; 99232; 99233 ==

== ENCOUNTER 2023-12-14 18:52 | Emergency (ER) | payer MEDICAID, SELFPAY ==
--- NOTE | 2023-12-14 | ECG_ITS ---
Test Reason : seizure Blood Pressure : / mmHG Vent. Rate : 070 BPM Atrial Rate : 070 BPM P-R Int : 146 ms QRS Dur : 080 ms QT Int : 392 ms P-R-T Axes : 056 060 043 degrees QTc Int : 423 ms Normal sinus rhythm Normal ECG When compared with ECG of 08-SEP-2023 16:16, No significant change was found Referred By: Generic ED Physician Electronically Signed By:WILLAM BEEBE
[2023-12-14 19:11] VITALS: BP 138/72; PULSE 82; O2SAT 99; BMI 33.1
[2023-12-14 19:13] VITALS: BP 126/84; PULSE 75; RESP 16; TEMP 37.1; O2SAT 100
[2023-12-14 19:33] LABS: MANUAL DIFF FLAG NO
[2023-12-14 19:34] LABS: Basophils Absolute Auto 0.1 X10*3/uL (0.0-0.2); Basophils Percent Auto 0.8 % (0-2); Eosinophils Absolute Auto 0.1 X10*3/uL (0.0-0.4); Eosinophils Percent Auto 1.8 % (0-4); Hematocrit 37.2 % (37.0-47.0); Hemoglobin 12.3 g/dl (12.0-16.0); Imm Gran Abs Auto 0.02 X10*3/uL (0.00-0.03); Imm Gran Pct Auto 0.3 % (0.0-0.4); Lymphocytes Absolute Auto 2.5 X10*3/uL (1.2-4.9); Lymphocytes Percent Auto 31.7 % (20-40); Mean Corpuscular HGB Conc 33.1 g/dl (31.0-35.0); Mean Corpuscular Hemoglobin 26.9 pg (27.0-33.0); Mean Corpuscular Volume 81.2 fL (80.0-98.0); Mean Platelet Volume 9.3 fL (9.4-12.3); Monocytes Absolute Auto 0.4 X10*3/uL (0.1-1.2); Monocytes Percent Auto 5.5 % (2-11); Neutrophils Absolute Auto 4.7 x10*3/uL (2.0-8.3); Neutrophils Percent Auto 59.9 % (45-73); Platelet Count 300 X10*3/uL (160-400); Red Blood Count 4.58 X10*6/uL (4.20-5.50); Red Cell Distribution Width 16.2 % (11.0-16.0); White Blood Count 7.9 X10*3/uL (4.8-10.8)
[2023-12-14 19:36] LABS: Appearance Urine Clear; Color Urine Yellow; Glucose Urine UA Negative (Negative); Leukocyte Esterase Urine Negative (Negative); Nitrite Urine Negative (Negative); PH 5.5 (5.0-9.0); Specific Gravity - Urine <= 1.005 (1.005-1.025); Urine Blood Negative (Negative); Urine Ketones Negative (Negative); Urine Protein Negative (Neg-Trace)
[2023-12-14 19:45] LABS: Amphetamine Screen Urine Not Detected (Not Detect); Barbiturates, Urine Not Detected (Not Detect); Benzodiazepines Screen Urine Not Detected (Not Detect); Buprenorphine Scr Not Detected (Not Detect); Cannabinoid Screen Urine Not Detected (Not Detect); Cocaine Screen Urine Not Detected (Not Detect); Fentanyl, urine Not Detected (Not Detect); Methadone Screen, Urine Not Detected (Not Detect); Opiate Screen Urine Not Detected (Not Detect); Oxycodone Screen Urine Not Detected (Not Detect); Phencyclidine Screen Urine Not Detected (Not Detect)
[2023-12-14 20:06] LABS: Alanine Aminotransferase 21 U/L (0-31); Albumin Level 4.4 g/dL (3.5-5.0); Alkaline Phosphatase 68 U/L (39-117); Anion Gap 14 (12-20); Aspartate Amino Transferase 23 U/L (5-31); Bilirubin Total 0.2 mg/dL (0.0-1.0); Blood Urea Nitrogen 15 mg/dL (9-16); Calcium 9.6 mg/dL (8.4-10.2); Carbon Dioxide 22 mmol/L (22-29); Chloride 107 mmol/L (96-108); Creatinine Clr Calc Pharmacy 107.1; Estimated Glomerular Filt Rate > 60; Glucose Random 99 mg/dL (60-115); Potassium 4.4 mmol/L (3.3-5.1); Sodium 139 mmol/L (135-145); Total Protein 7.7 g/dL (6.5-8.0)
--- NOTE | 2023-12-14 22:47 | ED_ITS ---
HPI - Seizure General Chief Complaint: Seizure Stated Complaint: seizure Time Seen by Provider: 12/14/23 21:52 Source: patient and EMS Limitations: no limitations History of Present Illness ED Provider: Neda ritchie PA-C HPI Narrative: 38-year-old female with a history of bipolar, anxiety, schizoaffective disorder, PTSD, catatonia, and polysubstance abuse presents after alleged seizure prior to arrival. Patient was just discharged from [facility] for ?seizure- like activity? she indicates she had imaging, no seizure activity was captured. However, she was placed on Topamax. Today, she was at her jerjss-kl-aeb's house and had an unwitnessed seizure. She called EMS for assistance. When they arrived, the patient had no postictal phase, she was alert and oriented, no injury sustained, she was never incontinent of urine. Patient denies use of illicit substances. Related Data Previous Rx's ?Medication ?Instructions ?Recorded albuterol sulfate 90 mcg/actuation 2 puff inhalation Q6H PRN wheezing 11/26/23 aerosol inhaler (Ventolin HFA) 30 days #1 inhaler gabapentin 300 mg capsule 300 mg PO TID 30 days #90 caps 11/26/23 quetiapine 200 mg tablet 200 mg PO BEDTIME 30 days #30 tabs 11/26/23 topiramate 25 mg tablet 25 mg PO BID 30 days #60 tabs 11/26/23 Allergies Allergy/AdvReac Type Severity Reaction Status Date / Time dog dander [DOG DANDER] Allergy Intermediate ITCHY EYES Verified 12/14/23 19:17 pollen extracts [POLLEN] Allergy Intermediate STUFFY, Verified 12/14/23 19:17 ITCHY EYES Review of Systems 2 Review of Systems: Yes all other systems are reviewed and are negative Constitutional: Constitutional: Denies fatigue and Denies fever(s) Cardiovascular: Cardiovascular: Denies chest pain and Denies dyspnea Respiratory: Respiratory: Denies cough and Denies dyspnea Gastrointestinal: Gastrointestinal: Denies diarrhea, Denies nausea and Denies vomiting Endocrine: Endocrine: Denies fatigue PMF Past Medical History Attestation statement: The following information was validated with the patient. Medical History PTSD (post-traumatic stress disorder) Prediabetes Oligomenorrhea Routine medical exam Anxiety Pseudoseizures Opioid use disorder Bipolar 1 disorder, manic, moderate Social History Social History Household Members: None Household Members Other:: says has spouse but unhoused Housing: Homeless Do you presently have visiting nurse or other home services: No (pt not responding) Unable to assess alcohol history related to: Unknown Alcohol intake: former Patient Tobacco Use Status: Tobacco use Unknown Tobacco use type: Cigarette Cigarette Packs Per Day: 1 Cigarettes Per Day: 20.0 Years Smoked: Many' Smoked in Last 30 Days: Yes e-Cigarette/Vaping Use: Former Use Second Hand Smoke Exposure: No (unknown) Use of substances other than those prescribed or required for medical reasons: Yes Substance Use Type: Crack/Cocaine Substance Use Frequency Other:: States she has not used it since her hospitaliztion and did not use it when Advance Directives: No Advance Directives Information Provided: No Do you have a plan to hurt others: No Plan service: No Sexual orientation: Straight/Heterosexual Physical Exam 2 Vital Signs: Vital Signs: Last Vital Signs Temp 99 F 12/14/23 22:52 Pulse 85 12/14/23 22:52 Resp 14 12/14/23 22:52 BP 93/43 L 12/14/23 22:52 Pulse Ox 97 12/14/23 22:52 O2 Del Method Room Air 12/14/23 22:52 BMI result Body Mass Index 33.1 Const: Other: Alert, well appearing Orientation/consciousness: patient oriented x3 HEENT: Other: No tongue wound Resp: Other: Nonlabored respiration Cardio: Other: Normal peripheral perfusion Skin: Other: Warm dry no rash Neuro: General: patient oriented x3, no focal motor deficits and CN's II-XI intact bilaterally Psych: Other: Cooperative at this time Medical Decision Making Medical Decision Making MDM Narrative: 38-year-old female with a history of bipolar, anxiety, schizoaffective disorder, PTSD, catatonia, and polysubstance abuse presents after alleged seizure prior to arrival. Patient was just discharged from [facility] for ?seizure-like activity? she indicates she had imaging, no seizure activity was captured. However, she was placed on Topamax. Today, she was at her pzwrnc-ir-cat's house and had an unwitnessed seizure. She called EMS for assistance. When they arrived, the patient had no postictal phase, she was alert and oriented, no injury sustained, she was never incontinent of urine. Patient denies use of illicit substances. Problem: Psychiatric illness, polysubstance abuse History: Per patient and EMS I have considered the following differential diagnoses: Pseudo seizure, breakthrough seizure, secondary gain, malingering, Plan: Screening labs including urine toxicology obtained from triage. Results unremarkable. Upon discussion of findings, patient states ?I have nowhere to go?. She apparently is homeless, she states she does not have anyone she can call, she was not provided with resources for long-term. We will provide her with a resource for long-term, she can sadly wait in the waiting room and make some phone calls. Furthermore, after I left the room, she verbalized to the nurse, ?can I just be admitted to the psych escalante?. She denies SI or HI. I have independently reviewed the following tests: Labs: No leukocytosis, not anemic, no electrolyte abnormality, U tox negative, urine not infected Lab Data 12/14/23 19:22 12/14/23 19:22 Labs: Lab Results 12/14/23 12/14/23 Range/Units 19:22 19:23 WBC 7.9 (4.8-10.8) X10*3/uL RBC 4.58 (4.20-5.50) X10*6/uL Hgb 12.3 (12.0-16.0) g/dl Hct 37.2 (37.0-47.0) % MCV 81.2 (80.0-98.0) fL MCH 26.9 L (27.0-33.0) pg MCHC 33.1 (31.0-35.0) g/dl RDW 16.2 H (11.0-16.0) % Plt Count 300 (160-400) X10*3/uL MPV 9.3 L (9.4-12.3) fL Immature Gran % (Auto) 0.3 (0.0-0.4) % Neut % (Auto) 59.9 (45-73) % Lymph % (Auto) 31.7 (20-40) % Cowley % (Auto) 5.5 (2-11) % Eos % (Auto) 1.8 (0-4) % Baso % (Auto) 0.8 (0-2) % Lymph # (Auto) 2.5 (1.2-4.9) X10*3/uL Cowley # (Auto) 0.4 (0.1-1.2) X10*3/uL Eos # (Auto) 0.1 (0.0-0.4) X10*3/uL Baso # (Auto) 0.1 (0.0-0.2) X10*3/uL Abs Immat Gran (auto) 0.02 (0.00-0.03) X10*3/uL Absolute Neuts (auto) 4.7 (2.0-8.3) x10*3/uL Absolute Nucleated RBC 0.000 (0.0-0.012) X10*3/uL Nucleated RBC % (auto) 0.0 (0.0-0.2) /100WBC Sodium 139 (135-145) mmol/L Potassium 4.4 D (3.3-5.1) mmol/L Chloride 107 (96-108) mmol/L Carbon Dioxide 22 (22-29) mmol/L Anion Gap 14 (12-20) BUN 15 (9-16) mg/dL Creatinine 0.81 (0.5-1.4) mg/dL Estim Creat Clear Calc 107.1 Estimated GFR > 60 Random Glucose 99 (60-115) mg/dL Calcium 9.6 (8.4-10.2) mg/dL Total Bilirubin 0.2 (0.0-1.0) mg/dL AST 23 (5-31) U/L ALT 21 (0-31) U/L Alkaline Phosphatase 68 (39-117) U/L Total Protein 7.7 (6.5-8.0) g/dL Albumin 4.4 (3.5-5.0) g/dL Urine Color Yellow Urine Appearance Clear Urine pH 5.5 (5.0-9.0) Ur Specific [place] <= 1.005 (1.005-1.025) Urine Protein Negative (Neg-Trace) mg/dL Urine Glucose (UA) Negative (Negative) mg/dL Urine Ketones Negative (Negative) mg/dL Urine Blood Negative (Negative) Urine Nitrite Negative (Negative) Ur Leukocyte Esterase Negative (Negative) Urine Opiates Screen Not Detected (Not Detect) Ur Buprenorphine Scrn Not Detected (Not Detect) ng/mL Ur Oxycodone Screen Not Detected (Not Detect) ng/mL Urine Methadone Screen Not Detected (Not Detect) ng/mL Urine Fentanyl Screen Not Detected (Not Detect) Ur Barbiturates Screen Not Detected (Not Detect) Ur Phencyclidine Scrn Not Detected (Not Detect) Ur Amphetamines Screen Not Detected (Not Detect) U Benzodiazepines Scrn Not Detected (Not Detect) Urine Cocaine Screen Not Detected (Not Detect) U Marijuana (THC) Screen Not Detected (Not Detect) Discharge Plan Discharge Clinical Impression: Homelessness unspecified Patient Disposition: Home, Self-Care Additional Instructions: All of your screening labs were normal. You need to follow up with your neurologist per your discharge instructions from [facility]. Continue to take your home medications as prescribed. We are providing you with a list of local shelters so you can seek housing. Prescriptions: No Action quetiapine 200 mg Tablet 200 mg PO BEDTIME 30 Days Qty: 30 0RF topiramate 25 mg Tablet 25 mg PO BID 30 Days Qty: 60 0RF gabapentin 300 mg Capsule 300 mg PO TID 30 Days Qty: 90 0RF albuterol sulfate [Ventolin HFA] 90 mcg/actuation HFA aerosol inhaler 2 puff inhalation Q6H PRN (Reason: wheezing) 30 Days Qty: 1 0RF Print Language: Sami
[2023-12-14 22:52] VITALS: BP 93/43; PULSE 85; RESP 14; TEMP 37.2; O2SAT 97
[2023-12-15 00:44] VITALS: BP 93/43; PULSE 85; RESP 14; TEMP 37.2; O2SAT 97
== END 2023-12-15 | disposition home or self-care (01) ==
PROVIDERS: Emergency Provider Emergency Medicine
DX: Z59.00 Homelessness unspecified (principal); F25.0 Schizoaffective disorder, bipolar type; F19.10 Other psychoactive substance abuse, uncomplicated; F43.10 Post-traumatic stress disorder, unspecified; J45.909 Unspecified asthma, uncomplicated; F17.210 Nicotine dependence, cigarettes, uncomplicated; Z79.899 Other long term (current) drug therapy
CPT/HCPCS: 36415; 80053; 80307; 81003; 85025; 93005; 99284

== ENCOUNTER → 2023-12-14 19:16 | Outpatient (BNV) | payer MEDICAID, SELFPAY | PROVIDERS: Emergency Provider Emergency Medicine; Visit Provider Internal Medicine | DX: G40.89 Other seizures (principal) | CPT/HCPCS: 93010 ==

== ENCOUNTER 2023-12-15 07:40 | Emergency (ER) | payer MEDICAID, SELFPAY ==
[2023-12-15 07:44] VITALS: BP 135/85; PULSE 93; RESP 16; O2SAT 98; BMI 33.4
--- NOTE | 2023-12-15 07:47 | ED.GENADULT ---
HPI - General Adult General Chief complaint: Psychiatric Symptoms Stated complaint: Psych issues Time Seen by Provider: 12/15/23 07:44 Source: patient Mode of arrival: ambulatory Limitations: no limitations History of Present Illness ED Provider: Jesenia CROCKER HPI narrative: This is a 38-year-old female history of bipolar, schizoaffective disorder, polysubstance abuse, anxiety, PTSD, delusions, catatonia, homelessness presenting to the emergency department for evaluation of suicidal ideation with no particular plan. She walked into the department today. She is not homicidal. Denies inciting event/trigger. Intermittently hearing voices. Denies tactile hallucinations. Denies drugs, alcohol and tobacco. No medical complaints at this time. Related Data Home Medications ?Medication ?Instructions ?Recorded ?Confirmed benztropine 1 mg tablet 1 mg PO BEDTIME 12/15/23 12/15/23 haloperidol 5 mg tablet 5 mg PO BEDTIME 12/15/23 12/15/23 lorazepam 2 mg tablet 2 mg PO DAILY PRN anxiety 12/15/23 12/15/23 trazodone 50 mg tablet 50 mg PO BEDTIME PRN insomnia 12/15/23 12/15/23 Previous Rx's ?Medication ?Instructions ?Recorded albuterol sulfate 90 mcg/actuation 2 puff inhalation Q6H PRN wheezing 11/26/23 aerosol inhaler (Ventolin HFA) 30 days #1 inhaler gabapentin 300 mg capsule 300 mg PO TID 30 days #90 caps 11/26/23 quetiapine 200 mg tablet 200 mg PO BEDTIME 30 days #30 tabs 11/26/23 topiramate 25 mg tablet 25 mg PO BID 30 days #60 tabs 11/26/23 Allergies Allergy/AdvReac Type Severity Reaction Status Date / Time dog dander [DOG DANDER] Allergy Intermediate ITCHY EYES Verified 12/15/23 07:45 pollen extracts [POLLEN] Allergy Intermediate STUFFY, Verified 12/15/23 07:45 ITCHY EYES Review of Systems Review of Systems: Yes all other systems are reviewed and are negative PMFSH Past Medical History Attestation statement: The following information was validated with the patient. Source: old records reviewed and nursing notes reviewed Medical History PTSD (post-traumatic stress disorder) Prediabetes Oligomenorrhea Routine medical exam Anxiety Pseudoseizures Opioid use disorder Bipolar 1 disorder, manic, moderate Social History Social History Household Members: None Household Members Other:: says has spouse but unhoused Housing: Homeless Do you presently have visiting nurse or other home services: No (pt not responding) Unable to assess alcohol history related to: Unknown Alcohol intake: former Patient Tobacco Use Status: Tobacco use Unknown Tobacco use type: Cigarette Cigarette Packs Per Day: 1 Cigarettes Per Day: 20.0 Years Smoked: Many' Smoked in Last 30 Days: Yes e-Cigarette/Vaping Use: Former Use Second Hand Smoke Exposure: No (unknown) Use of substances other than those prescribed or required for medical reasons: No Substance Use Type: Crack/Cocaine Advance Directives: No Advance Directives Information Provided: Yes Do you have a plan to hurt others: No Plan Patient : No service: No Sexual orientation: Straight/Heterosexual Physical Exam ED Vital Signs: Vital Signs - 24 hr 12/15/23 07:44 12/15/23 07:56 12/15/23 14:22 Pulse Rate 93 Respiratory Rate 16 16 16 Blood Pressure 135/85 Pulse Oximetry 98 Oxygen Delivery Method Room Air BMI result Body Mass Index 33.4 vss Appearance: Alert.? Oriented X3.? No acute distress.? Head: Normocephalic, atraumatic, no step-offs or deformities Eyes: Pupils equal, round and reactive to light.? CVS: Normal heart rate and rhythm.? Pulses normal.? Respiratory: No respiratory distress.? Breath sounds normal.? Abdomen: Soft and nontender.? Skin: Skin warm and dry.? Normal skin color.? Normal skin turgor.? Extremities: No lower extremity edema.? No calf ttp. 5/5 strength to bilateral upper and lower extremities Back: No midline tenderness, no C-spine tenderness, full range of motion, no CVA tenderness bilaterally Neuro: Oriented X 3.? No motor deficit.? No sensory deficit. CN 2-12 intact Course Reevaluation(s) Reevaluation #1: CBC unremarkable. Chemistry unremarkable. UA clean. Urine preg negative. U tox + for cocaine. Negative ethanol. At this time patient will be placed in physician obs to allow more time to be evaluated by care team. Time: 08:41 Reevaluation #2: Patient not meeting criteria for inpatient level of care. Care team will put in referal for respit at this time or dual dx. Time: 14:34 Medical Decision Making Medical Decision Making MDM Narrative: 38-year-old female presents with suicidal ideation without plan. Not homicidal. Physical exam benign History and physical exam concerning for schizoaffective disorder versus bipolar versus anxiety versus delusions versus polysubstance abuse. Unlikely metabolic derangements. Plan medical clearance evaluation by care team Differential Diagnosis Differential Diagnoses: The differential diagnosis associated with the presentation includes (History and physical exam concerning for schizoaffective disorder versus bipolar versus anxiety versus delusions versus polysubstance abuse. Unlikely metabolic derangements.) Admission/Observation Consideration of admission/observation: Escalation of care including admission/observation considered Lab Data [facility] Lab Attestation statement: I reviewed the patient's lab results. 12/15/23 07:51 12/15/23 07:51 Labs: Lab Results 12/15/23 12/15/23 Range/Units 07:51 08:14 WBC 7.0 (4.8-10.8) X10*3/uL RBC 5.02 (4.20-5.50) X10*6/uL Hgb 13.4 (12.0-16.0) g/dl Hct 41.3 (37.0-47.0) % MCV 82.3 (80.0-98.0) fL MCH 26.7 L (27.0-33.0) pg MCHC 32.4 (31.0-35.0) g/dl RDW 16.4 H (11.0-16.0) % Plt Count 330 (160-400) X10*3/uL MPV 9.7 (9.4-12.3) fL Immature Gran % (Auto) 0.4 (0.0-0.4) % Neut % (Auto) 77.0 H (45-73) % Lymph % (Auto) 16.0 L (20-40) % Barnes % (Auto) 5.2 (2-11) % Eos % (Auto) 0.7 (0-4) % Baso % (Auto) 0.7 (0-2) % Lymph # (Auto) 1.1 L (1.2-4.9) X10*3/uL Barnes # (Auto) 0.4 (0.1-1.2) X10*3/uL Eos # (Auto) 0.1 (0.0-0.4) X10*3/uL Baso # (Auto) 0.1 (0.0-0.2) X10*3/uL Abs Immat Gran (auto) 0.03 (0.00-0.03) X10*3/uL Absolute Neuts (auto) 5.4 (2.0-8.3) x10*3/uL Absolute Nucleated RBC 0.000 (0.0-0.012) X10*3/uL Nucleated RBC % (auto) 0.0 (0.0-0.2) /100WBC Sodium 140 (135-145) mmol/L Potassium 4.4 (3.3-5.1) mmol/L Chloride 106 (96-108) mmol/L Carbon Dioxide 20 L (22-29) mmol/L Anion Gap 18 (12-20) BUN 16 (9-16) mg/dL Creatinine 0.83 (0.5-1.4) mg/dL Estim Creat Clear Calc 105.1 Estimated GFR > 60 Random Glucose 130 H (60-115) mg/dL Calcium 10.5 H D (8.4-10.2) mg/dL Magnesium 1.9 (1.6-2.6) mg/dL Total Bilirubin 0.3 (0.0-1.0) mg/dL AST 14 (5-31) U/L ALT 22 (0-31) U/L Alkaline Phosphatase 80 (39-117) U/L Total Protein 8.7 H (6.5-8.0) g/dL Albumin 4.9 (3.5-5.0) g/dL Urine Color Yellow Urine Appearance Clear Urine pH 5.0 (5.0-9.0) Ur Specific [place] 1.025 (1.005-1.025) Urine Protein Negative (Neg-Trace) mg/dL Urine Glucose (UA) Negative (Negative) mg/dL Urine Ketones Negative (Negative) mg/dL Urine Blood Negative (Negative) Urine Nitrite Negative (Negative) Ur Leukocyte Esterase Negative (Negative) Urine Test NEGATIVE (NEGATIVE) Urine Opiates Screen Not Detected (Not Detect) Ur Buprenorphine Scrn Not Detected (Not Detect) ng/mL Ur Oxycodone Screen Not Detected (Not Detect) ng/mL Urine Methadone Screen Not Detected (Not Detect) ng/mL Urine Fentanyl Screen Not Detected (Not Detect) Ur Barbiturates Screen Not Detected (Not Detect) Ur Phencyclidine Scrn Not Detected (Not Detect) Ur Amphetamines Screen Not Detected (Not Detect) U Benzodiazepines Scrn Not Detected (Not Detect) Urine Cocaine Screen POSITIVE H (Not Detect) U Marijuana (THC) Screen Not Detected (Not Detect) Ethyl Alcohol < 10 mg/dL External Record Review External record reviewed: Inpatient record, Office record, Outpatient record, Prior outpatient labs, Prior outpatient radiology, Primary care record and Outside ED record Chronic Conditions Patient?s care impacted by: Other (see hpi ) Social Determinants Patient?s care significantly limited by Social Determinants of Health including: Inadequate housing, Low income, Alcoholism and drug addiction in family, Problems related to primary support group, Unemployment, Problems related to employment and Other Social Determinant of Health Critical Care Time Critical Care Time Critical Care Time: No Discharge Plan Discharge Clinical Impression: Schizoaffective disorder, bipolar type, Homelessness unspecified Patient Disposition: Still a Patient Prescriptions: No Action quetiapine 200 mg Tablet 200 mg PO BEDTIME 30 Days Qty: 30 0RF topiramate 25 mg Tablet 25 mg PO BID 30 Days Qty: 60 0RF gabapentin 300 mg Capsule 300 mg PO TID 30 Days Qty: 90 0RF albuterol sulfate [Ventolin HFA] 90 mcg/actuation HFA aerosol inhaler 2 puff inhalation Q6H PRN (Reason: wheezing) 30 Days Qty: 1 0RF haloperidol 5 mg tablet 5 mg PO BEDTIME trazodone 50 mg tablet 50 mg PO BEDTIME PRN (Reason: insomnia) lorazepam 2 mg tablet 2 mg PO DAILY PRN (Reason: anxiety) benztropine 1 mg tablet 1 mg PO BEDTIME Interventions: Milo-Suicide Risk Severity Scale Last Done: 12/15/23 07:56 Print Language: Ukrainian
--- NOTE | 2023-12-15 07:54 | PC.NURSE ---
Leah is coming to the ED today reporting suicidal ideation without any active plan. When asked what is causing this, pt reports nothing is going my way . When asked how long this has been going on pt states since I got discharged from the hospital this morning . Pt reports that she has no way to get home. Patient is calm and cooperative at this time, willing to participate in pack changer. Pending medical clearance and then CARE team evaluation.
[2023-12-15 07:55] LABS: MANUAL DIFF FLAG NO
[2023-12-15 07:56] VITALS: RESP 16
[2023-12-15 07:57] LABS: Basophils Absolute Auto 0.1 X10*3/uL (0.0-0.2); Basophils Percent Auto 0.7 % (0-2); Eosinophils Absolute Auto 0.1 X10*3/uL (0.0-0.4); Eosinophils Percent Auto 0.7 % (0-4); Hematocrit 41.3 % (37.0-47.0); Hemoglobin 13.4 g/dl (12.0-16.0); Imm Gran Abs Auto 0.03 X10*3/uL (0.00-0.03); Imm Gran Pct Auto 0.4 % (0.0-0.4); Lymphocytes Absolute Auto 1.1 X10*3/uL (1.2-4.9); Mean Corpuscular HGB Conc 32.4 g/dl (31.0-35.0); Mean Corpuscular Hemoglobin 26.7 pg (27.0-33.0); Mean Corpuscular Volume 82.3 fL (80.0-98.0); Mean Platelet Volume 9.7 fL (9.4-12.3); Monocytes Absolute Auto 0.4 X10*3/uL (0.1-1.2); Monocytes Percent Auto 5.2 % (2-11); Neutrophils Absolute Auto 5.4 x10*3/uL (2.0-8.3); Platelet Count 330 X10*3/uL (160-400); Red Blood Count 5.02 X10*6/uL (4.20-5.50); Red Cell Distribution Width 16.4 % (11.0-16.0)
--- NOTE | 2023-12-15 07:57 | PC.NURSE ---
Patient is alert and oriented x4, skin is pwd, respirations even and unlabored, patient ambulates with steady gait to bathroom for change control specialist
[2023-12-15 08:15] LABS: Alanine Aminotransferase 22 U/L (0-31); Albumin Level 4.9 g/dL (3.5-5.0); Alkaline Phosphatase 80 U/L (39-117); Anion Gap 18 (12-20); Aspartate Amino Transferase 14 U/L (5-31); Bilirubin Total 0.3 mg/dL (0.0-1.0); Blood Urea Nitrogen 16 mg/dL (9-16); Calcium 10.5 mg/dL (8.4-10.2); Carbon Dioxide 20 mmol/L (22-29); Chloride 106 mmol/L (96-108); Creatinine Clr Calc Pharmacy 105.1; Estimated Glomerular Filt Rate > 60; Ethanol < 10 mg/dL; Glucose Random 130 mg/dL (60-115); Magnesium 1.9 mg/dL (1.6-2.6); Potassium 4.4 mmol/L (3.3-5.1); Sodium 140 mmol/L (135-145); Total Protein 8.7 g/dL (6.5-8.0)
[2023-12-15 08:29] LABS: Appearance Urine Clear; Color Urine Yellow; Glucose Urine UA Negative (Negative); Leukocyte Esterase Urine Negative (Negative); Nitrite Urine Negative (Negative); Specific Gravity - Urine 1.025 (1.005-1.025); Urine Blood Negative (Negative); Urine Ketones Negative (Negative); Urine Protein Negative (Neg-Trace)
[2023-12-15 08:31] LABS: Amphetamine Screen Urine Not Detected (Not Detect); Barbiturates, Urine Not Detected (Not Detect); Benzodiazepines Screen Urine Not Detected (Not Detect); Buprenorphine Scr Not Detected (Not Detect); Cannabinoid Screen Urine Not Detected (Not Detect); Cocaine Screen Urine POSITIVE (Not Detect); Fentanyl, urine Not Detected (Not Detect); Methadone Screen, Urine Not Detected (Not Detect); Opiate Screen Urine Not Detected (Not Detect); Oxycodone Screen Urine Not Detected (Not Detect); Phencyclidine Screen Urine Not Detected (Not Detect); UPreg QC Valid YES; Urine Pregnancy NEGATIVE (NEGATIVE)
[2023-12-15 14:22] VITALS: RESP 16
[2023-12-15] MEDS: Gabapentin 300 MG CAPSULE PO ×2 (15:01→20:54)
[2023-12-15] MEDS: LORazepam 1 MG TABLET 2 MG PO (15:01)
--- NOTE | 2023-12-15 16:40 | PC.NURSE ---
Late entry: patient reporting increased anxiety, she reports she does not feel comfortable here. This RN offered PRN ativan which she willingly took. patient is now calm and cooperative, offering no complaints, praying in her room
--- NOTE | 2023-12-15 17:34 | MHC.CARE ---
Patient evaluated by the CARE Team, disposition inpatient psychiatric/dual diagnosis treatment. ED provider, Barbara Vicente updated.
[2023-12-15] MEDS: Benztropine Mesylate 1 MG TABLET PO (20:54)
[2023-12-15] MEDS: QUEtiapine Fumarate 200 MG TABLET PO (20:54)
[2023-12-15] MEDS: HaloperidoL 5 MG TABLET PO (20:54)
[2023-12-15] MEDS: Topiramate 25 MG TABLET PO (20:54)
[2023-12-15 20:55] VITALS: BP 100/52; PULSE 83; RESP 18; TEMP 36.9; O2SAT 98
[2023-12-16] MEDS: traZODone HCL 50 MG TABLET PO (02:07)
--- NOTE | 2023-12-16 02:15 | PC.NURSE ---
Patient complaints of being unable to sleep. Trazadone offered and patient willingly took. Patient calm and cooperative at this time.
[2023-12-16 06:45] VITALS: BP 98/52; PULSE 82; RESP 16; TEMP 37; O2SAT 98
--- NOTE | 2023-12-16 07:41 | PHA.MEDREC ---
Pharmacy Consult ? Medication Reconciliation Pharmacy has REVIEWED the medication reconciliation COMPLETED by nursing. All Claims match confirmed medications
[2023-12-16] MEDS: Topiramate 25 MG TABLET PO (08:53)
[2023-12-16] MEDS: Gabapentin 300 MG CAPSULE PO (08:53)
[2023-12-16] MEDS: LORazepam 1 MG TABLET 2 MG PO (08:53)
--- NOTE | 2023-12-16 09:26 | MHC.CARE ---
Pt was accepted to [facility] for today 12/16/23 by Dayana. The accepting provider is Dr. Rafiq Arauz and the ETA is 12:30pm. No nurse to nurse is required by the accepting facility. The address is [address] [place] [address], [place] [address]. Pod RN Ar and the CARE team have been notified of placement.
--- NOTE | 2023-12-16 13:29 | MHC.CARE ---
T/w was notified that transport will not be available to pickling solution maker individual until 3:00PM. T/w spoke with Lashae at [facility] who stated that they will be able to hold the bed until 5:00PM when individual arrives. Care Team updated.
[2023-12-16 14:05] VITALS: BP 98/52; PULSE 82; RESP 16; TEMP 37; O2SAT 98
--- NOTE | 2023-12-16 16:34 | MHC.CARE ---
Patient remembered the name of her new [facility] CM is Ellen through the [place] office, she has not spoken to her since initial meeting as she does not have a phone. Stated this was arranged when she was IPLOC at [facility] this summer and that office had soonest availability. Prior to patient leaving for [facility] for treatment, left message at [facility] asking for return call.
== END 2023-12-16 14:06 | disposition still patient (30) ==
PROVIDERS: Physician Assistant; Emergency Provider Emergency Medicine; PCP Family Medicine
DX: F25.0 Schizoaffective disorder, bipolar type (principal); R45.851 Suicidal ideations; Z59.00 Homelessness unspecified; Z79.899 Other long term (current) drug therapy; Z51.81 Encounter for therapeutic drug level monitoring
CPT/HCPCS: 36415; 80053; 80307; 81003; 81025; 83735; 85025; 99284; 99285; S9485

== ENCOUNTER 2023-12-26 14:38 | Inpatient (IN) | payer OTHER, SELFPAY ==
[2023-12-26 15:00] VITALS: BP 124/76; PULSE 90; RESP 18; TEMP 36.2; O2SAT 98
[2023-12-26 17:09] VITALS: BMI 33.4
--- NOTE | 2023-12-26 17:19 | PC.ADMIT ---
Leah arrived to the unit at 1500 via ambulance from [facility]. Met with Harpreet ÁLVAREZ, signed Conditional Voluntary, then right after signed a three day. Skin check done, skin appears intact, she does have bilateral bruising to upper extremities. Upon approach broad affect, when asked how she felt stated Better that I see familiar faces. She denied endorsing anxiety and depression, denied auditory hallucinations. She reported having visual hallucinations stated I started seeing shadows, I got scared, I feel people are after me. When asked what brought her in she stated I had a seizure, she reports she had a seizure at [facility] after not taking her medications for a day due to not having them, stated They called the ambulance on me and sent me to the hospital. She reports that when she went back they told her she lost her bed, reports she is currently homeless and Scared, that when I started seeing stuff. She reports feeling Hopeless, I'm all alone I don't have no one. She reports she is from her He left me and so did my mother in law. When asked if she had any thoughts of wanting to hurt self stated No, verbalized to look for staff if thoughts occur. Leah is diagnosed with Bipolar Disorder, Schizophrenia and seizure disorder. She is currently on 15 minute checks.
[2023-12-26] MEDS: hydrOXYzine HCL 50 MG TABLET PO (17:26)
[2023-12-26 19:10] VITALS: BP 142/88; PULSE 105; RESP 16; TEMP 36.5; O2SAT 97
[2023-12-26] MEDS: QUEtiapine Fumarate 200 MG TABLET PO (20:11)
[2023-12-26] MEDS: LORazepam 1 MG TABLET 2 MG PO (20:12)
[2023-12-26] MEDS: Topiramate 25 MG TABLET PO (20:12)
[2023-12-26] MEDS: Benztropine Mesylate 1 MG TABLET PO (20:12)
[2023-12-26] MEDS: HaloperidoL 5 MG TABLET PO (20:12)
[2023-12-26] MEDS: Gabapentin 300 MG CAPSULE PO (20:12)
[2023-12-26] MEDS: traZODone HCL 50 MG TABLET PO ×2 (20:18→21:19)
[2023-12-27 07:36] VITALS: BP 95/62; PULSE 81; RESP 14; TEMP 36.4; O2SAT 96
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
[2023-12-27] MEDS: Gabapentin 300 MG CAPSULE PO ×3 (09:48→20:36)
[2023-12-27] MEDS: Topiramate 25 MG TABLET PO ×2 (09:48→20:36)
[2023-12-27] MEDS: LORazepam 1 MG TABLET 2 MG PO ×3 (09:48→20:35)
[2023-12-27] MEDS: Nicotine Polacrilex 2 MG GUM 4 MG BUCCAL (09:50)
--- NOTE | 2023-12-27 11:22 | P.CNHOSGPS_ITS ---
History of Present Illness Data of Consult Service Date: 12/27/23 Requesting physician: Yanira Mullins Primary Care Provider: Edwige Chang MD [facility] Reason for consult: medical consult Patient is a 38-year-old female with a past medical history significant for prediabetes, PTSD, anxiety, pseudoseizures, substance use disorder, bipolar 1, schizophrenia, and mild intermittent asthma, admitted to [facility] for visual hallucinations. She reports diarrhea 3-4x/day and abdominal pain for the last few days with bright red blood separate from the stool. She also reports her last seizure was 12/23/2023 due to missing her medications. She denies shortness of breath, headache, nasal congestion, runny nose, fever, chills, nausea or vomiting. Review of Systems Constitutional: Constitutional: Denies body ache(s), Denies chills, Denies fatigue, Denies fever(s) and Denies headache(s) Eyes: Eyes: Denies change in vision ENT: Reports Normal hearing present, Denies headache(s), Denies nasal congestion, Denies nasal discharge and Denies sore throat Cardiovascular: Cardiovascular: Denies chest pain, Denies rapid heart rate, Denies leg edema and Denies dyspnea Respiratory: Respiratory: Denies chest congestion, Denies cough, Denies dyspnea and Denies wheezing Gastrointestinal: Gastrointestinal: Reports abdominal pain, Denies constipation, Reports diarrhea, Denies nausea and Denies vomiting Genitourinary: Genitourinary: Denies dysuria and Denies urinary urgency Musculoskeletal: Musculoskeletal: Denies myalgias Integumentary/Breasts: Skin/Breast: Denies rash Neurologic: Reports Normal hearing present, Denies confusion, Denies headache(s) and Denies memory loss Psychiatric: Psychiatric: Denies confusion and Denies memory loss Endocrine: Endocrine: Denies fatigue Allergic/Immunologic: Allergic/Immunologic: Denies wheezing [facility] Medical History PTSD (post-traumatic stress disorder) Prediabetes Oligomenorrhea Routine medical exam Anxiety Pseudoseizures Opioid use disorder Bipolar 1 disorder, manic, moderate Functional capacity: independent ambulation Date of last menstrual period: 12/27/23 Patient : No Social History Household Members: None Household Members Other:: says has spouse but unhoused Housing: Homeless Do you presently have visiting nurse or other home services: No Unable to assess alcohol history related to: Unknown Alcohol intake: former Patient Tobacco Use Status: Former Tobacco user Tobacco use type: Cigarette Cigarette Packs Per Day: 1 Cigarettes Per Day: 20.0 Years Smoked: Many' e-Cigarette/Vaping Use: Former Use Second Hand Smoke Exposure: No Use of substances other than those prescribed or required for medical reasons: No Substance Use Type: Crack/Cocaine Currently Displaying Signs/Symptoms of Drug Intoxication Withdrawal: No Have you been hit, kicked, punched, or otherwise hurt by someone within the past year? If so, by whom?: No Do you feel safe in your current relationship?: No Current Relationship Is there a partner from a previous relationship who is making you feel unsafe now?: No Are you made to feel afraid or neglected: No Spiritual Healthcare Practices: None Reported Advance Directives: No Advance Directives Information Provided: No Do you have thoughts of harming others: None Do you have a plan to hurt others: No Plan Recently lost weight without trying: No How much weight loss: Not applicable Nutrition Risks: No Nutritional Risk Patient : No : No Poor oral hygiene: No service: No Sexual orientation: Straight/Heterosexual Meds Allergies Allergy/AdvReac Type Severity Reaction Status Date / Time dog dander [DOG DANDER] Allergy Intermediate ITCHY EYES Verified 12/15/23 07:45 pollen extracts [POLLEN] Allergy Intermediate STUFFY, Verified 12/15/23 07:45 ITCHY EYES Active Medications: Current Medications Acetaminophen (Acetaminophen 325 Mg Tablet) 650 mg PO Q6H PRN PRN Reason: Headache/Pain Mild Scale (1-3) Al Hydroxide/Mg Hydroxide (Magnesium Hydrox/Alum Hydrox 30 Ml Oral.Susp) 30 ml PO Q6H PRN PRN Reason: Heartburn/Nausea Albuterol Sulfate (Albuterol Sulfate 90 Mcg 8 Gm Inhaler) 2 puff INHALE Q6H PRN PRN Reason: wheezing Benztropine Mesylate (Benztropine Mesylate 1 Mg Tablet) 1 mg PO BEDTIME [facility] Last Admin: 12/26/23 20:12 Dose: 1 mg Gabapentin (Gabapentin 300 Mg Capsule) 300 mg PO TID [facility] Last Admin: 12/27/23 09:48 Dose: 300 mg Haloperidol (Haloperidol 5 Mg Tablet) 5 mg PO BEDTIME ENRIKE Last Admin: 12/26/23 20:12 Dose: 5 mg Hydroxyzine HCl (Hydroxyzine Hcl 50 Mg Tablet) 50 mg PO TID PRN PRN Reason: anxiety Last Admin: 12/26/23 17:26 Dose: 50 mg Lorazepam (Lorazepam 1 Mg Tablet) 2 mg PO TID ENRIKE Last Admin: 12/27/23 09:48 Dose: 2 mg Magnesium Hydroxide (Milk Of Magnesia 30 Ml Oral.Susp) 30 ml PO DAILY PRN PRN Reason: Constipation Nicotine (Nicotine 21 Mg Patch.Td24) 21 mg TRANSDERMA DAILY [facility] Last Admin: 12/27/23 09:48 Dose: Not Given Nicotine Polacrilex (Nicotine Polacrilex 2 Mg Gum) 4 mg BUCCAL Q2H PRN PRN Reason: Nicotine Cravings Last Admin: 12/27/23 09:50 Dose: 4 mg Quetiapine Fumarate (Quetiapine Fumarate 200 Mg Tablet) 200 mg PO BEDTIME [facility] Last Admin: 12/26/23 20:11 Dose: 200 mg Topiramate (Topiramate 25 Mg Tablet) 25 mg PO BID [facility] Last Admin: 12/27/23 09:48 Dose: 25 mg Trazodone HCl (Trazodone Hcl 50 Mg Tablet) 50 mg PO BEDTIME MRX1 PRN PRN Reason: Insomnia Last Admin: 12/26/23 21:19 Dose: 50 mg Home Medications ?Medication ?Instructions ?Recorded ?Confirmed ?Last Taken ?Type benztropine 1 mg tablet 1 mg PO BEDTIME 12/15/23 12/26/23 Unknown History haloperidol 5 mg tablet 5 mg PO BEDTIME 12/15/23 12/26/23 Unknown History lorazepam 2 mg tablet 2 mg PO TID 12/15/23 12/26/23 Unknown History trazodone 50 mg tablet 50 mg PO BEDTIME PRN insomnia 12/15/23 12/26/23 Unknown History hydroxyzine pamoate 50 mg capsule 50 mg PO TID PRN anxiety 12/26/23 12/26/23 Unknown History Assessment and Plan (1) Medical clearance for psychiatric admission: Status: Acute (2) Generalized abdominal discomfort: Status: Acute (3) Diarrhea: Status: Acute (4) Bright red blood per rectum: Status: Acute (5) Obesity (BMI 30.0-34.9): Status: Acute Plan Patient is a 38-year-old female with a past medical history significant for prediabetes, PTSD, anxiety, pseudoseizures, substance use disorder, bipolar 1, schizophrenia, and mild intermittent asthma, admitted to adult psych for visual hallucinations. Mood disorder/visual hallucinations - plan per psych Diarrhea/abdominal pain/rectal bleeding - offered stool testing, patient declined, states it is not that severe - we will await CBC to assess for elevated white count - rectal bleeding likely secondary to anal fissure/hemorrhoids - fiber daily Prediabetes - check A1c - encouraged low carb/sugar diet Pseudoseizures - continue benztropine, gabapentin, topiramate,and lorazepam Mild intermittent asthma - no acute exacerbation - albuterol as needed Thank you for allowing me to participate in the pt's care. Signing off for now. Please contact the medical team if any questions or concerns. Physical Exam Vital Signs: Last Vital Signs Temp 97.6 F 12/27/23 07:36 Pulse 81 12/27/23 07:36 Resp 14 12/27/23 07:36 BP 95/62 12/27/23 07:36 Pulse Ox 96 12/27/23 07:36 O2 Del Method Room Air 12/27/23 07:36 BMI result Body Mass Index 33.4 General: AOx3, no acute distress Resp: CTA bilaterally CVS: S1, S2, RRR GI: +BS, mild generalized tenderness, no distention Rectal: moderately large external hemorrhoids with fissure and scant bleeding Skin: Warm, dry Neuro: Cranial nerves II-XII grossly intact bilaterally. Motor grossly intact bilaterally Extremities: No edema Psych: Appropriate affect Const General: No confusion Orientation/consciousness: No confusion Eyes Pupils: Equal, round and reactive pupils present Neuro General: No confusion Cranial nerves: Yes CN's II-XII intact bilaterally, Yes Facial sensation intact/muscles of mastication intact, Yes Intact sense of smell present, Yes Equal, round and reactive pupils present, Yes Normal accommodation reflex present, Yes Bilaterally intact EOM present, Yes Nystagmus not present, Yes Normal facial strength present, Yes Midline tongue present, Yes Symmetric palate elevation present, Yes Normal hearing present, Yes Ability to bilaterally rotate head present and Yes Ability to bilaterally elevate shoulders present
[2023-12-27] MEDS: hydrOXYzine HCL 50 MG TABLET PO ×2 (12:41→17:18)
[2023-12-27] MEDS: HaloperidoL 5 MG TABLET PO ×3 (12:56→20:36)
[2023-12-27 20:00] VITALS: BP 117/66; PULSE 81; RESP 18; TEMP 36.4; O2SAT 96
[2023-12-27] MEDS: QUEtiapine Fumarate 200 MG TABLET PO (20:34)
[2023-12-27] MEDS: Benztropine Mesylate 1 MG TABLET PO (20:34)
[2023-12-27] MEDS: traZODone HCL 50 MG TABLET PO (20:39)
[2023-12-28] MEDS: LORazepam 1 MG TABLET 2 MG PO ×3 (08:39→20:08)
[2023-12-28] MEDS: Gabapentin 300 MG CAPSULE PO ×3 (08:39→20:08)
[2023-12-28] MEDS: Topiramate 25 MG TABLET PO ×2 (08:39→20:08)
[2023-12-28 08:41] VITALS: BP 122/91; PULSE 91; RESP 16; TEMP 36.5; O2SAT 100
[2023-12-28] MEDS: Nicotine Polacrilex 2 MG GUM 4 MG BUCCAL ×4 (09:11→20:08)
--- NOTE | 2023-12-28 09:24 | P.PNPSI_ITS ---
Subjective Subjective Date of Service: 12/28/23 Reason For Visit: Crisis Subjective Notes: Conditional Voluntary and 3 Day Interim History: The nursing staff reported the patient had been compliant with medication eating well attending to groups. Yesterday she called 911 reporting that her has been missing. She looks better using all her p.r.n. Haldol pleasant on approach slept 5 hours. On interview the patient denies new symptoms. No side effects with current treatment. Mental Status Exam Mental Status Exam Patient Appearance: Well Grooomed and Appropriate Patient Orientation: Person and Situation Level of Consciousness: Awake Patient Behavior: Guarded and Passive Mood Description: Calm Affect Description: Constricted Patient Cognition Impaired: Yes Ability to Follow Directions: Good Speech Pattern: Clear Hallucinations: None Delusions: Not Present Thought Process: Distracted and Linear Thought Content: positive for [place] and positive for Circumstantial Judgement: Fair Diagnostics Vital Signs (24Hr): Vital Signs - 24 hr 12/27/23 20:00 12/28/23 08:41 Temperature 97.6 F 97.7 F Pulse Rate 81 91 Respiratory Rate 18 16 Blood Pressure 117/66 122/91 H Pulse Oximetry 96 100 Oxygen Delivery Method Room Air Room Air BMI result Body Mass Index 33.4 Medications Medications Current Medications Acetaminophen (Acetaminophen 325 Mg Tablet) 650 mg PO Q6H PRN PRN Reason: Headache/Pain Mild Scale (1-3) Al Hydroxide/Mg Hydroxide (Magnesium Hydrox/Alum Hydrox 30 Ml Oral.Susp) 30 ml PO Q6H PRN PRN Reason: Heartburn/Nausea Albuterol Sulfate (Albuterol Sulfate 90 Mcg 8 Gm Inhaler) 2 puff INHALE Q6H PRN PRN Reason: wheezing Benztropine Mesylate (Benztropine Mesylate 1 Mg Tablet) 1 mg PO BEDTIME [facility] Last Admin: 12/27/23 20:34 Dose: 1 mg Gabapentin (Gabapentin 300 Mg Capsule) 300 mg PO TID ENRIKE Last Admin: 12/28/23 08:39 Dose: 300 mg Haloperidol (Haloperidol 5 Mg Tablet) 5 mg PO BEDTIME ENRIKE Last Admin: 12/27/23 20:36 Dose: 5 mg Haloperidol (Haloperidol 5 Mg Tablet) 5 mg PO TID PRN PRN Reason: Psychosis Last Admin: 12/27/23 17:18 Dose: 5 mg Hydroxyzine HCl (Hydroxyzine Hcl 50 Mg Tablet) 50 mg PO TID PRN PRN Reason: anxiety Last Admin: 12/27/23 17:18 Dose: 50 mg Lorazepam (Lorazepam 1 Mg Tablet) 2 mg PO TID [facility] Last Admin: 12/28/23 08:39 Dose: 2 mg Magnesium Hydroxide (Milk Of Magnesia 30 Ml Oral.Susp) 30 ml PO DAILY PRN PRN Reason: Constipation Nicotine (Nicotine 21 Mg Patch.Td24) 21 mg TRANSDERMA DAILY [facility] Last Admin: 12/28/23 08:39 Dose: Not Given Nicotine Polacrilex (Nicotine Polacrilex 2 Mg Gum) 4 mg BUCCAL Q2H PRN PRN Reason: Nicotine Cravings Last Admin: 12/28/23 09:11 Dose: 4 mg Quetiapine Fumarate (Quetiapine Fumarate 200 Mg Tablet) 200 mg PO BEDTIME [facility] Last Admin: 12/27/23 20:34 Dose: 200 mg Sodium Chloride (Sodium Chloride 0.65 % Nasal 44 Ml Sprbtl) 1 spray NOSTRIL-B Q1H PRN PRN Reason: Nasal Congestion Topiramate (Topiramate 25 Mg Tablet) 25 mg PO BID [facility] Last Admin: 12/28/23 08:39 Dose: 25 mg Trazodone HCl (Trazodone Hcl 50 Mg Tablet) 50 mg PO BEDTIME MRX1 PRN PRN Reason: Insomnia Last Admin: 12/27/23 20:39 Dose: 50 mg Allergies Allergies Allergy/AdvReac Type Severity Reaction Status Date / Time dog dander [DOG DANDER] Allergy Intermediate ITCHY EYES Verified 12/15/23 07:45 pollen extracts [POLLEN] Allergy Intermediate STUFFY, Verified 12/15/23 07:45 ITCHY EYES Assessment & Plan Assessment & Plan (1) Schizoaffective disorder, bipolar type: Status: Acute Code(s): F25.0 - Schizoaffective disorder, bipolar type (2) PTSD (post-traumatic stress disorder): Status: Acute Code(s): F43.10 - Post-traumatic stress disorder, unspecified Plan Patient is a 38-year-old female with history of schizoaffective disorder, PTSD, cocaine use disorder who was seen at [facility] due to suicidal ideation with plan to suffocate herself secondary to increased visual hallucinations. Plan: / day notice 15 minute safety checks Continue home medications Encourage groups Discharge planning Reason for continued inpatient stay Substantial Risk for: inability to function, rapid decompensation and med/psych decompensation Time Spent With Patient Time: Total time managing care of this patient today __20__ minutes.
[2023-12-28] MEDS: hydrOXYzine HCL 50 MG TABLET PO ×2 (12:03→20:08)
[2023-12-28] MEDS: HaloperidoL 5 MG TABLET PO ×2 (16:29→20:08)
[2023-12-28] MEDS: Loperamide HCl 2 MG CAPSULE 4 MG PO (18:00)
[2023-12-28 20:00] VITALS: BP 126/82; PULSE 60; RESP 16; TEMP 36.4; O2SAT 99
[2023-12-28] MEDS: QUEtiapine Fumarate 200 MG TABLET PO (20:08)
[2023-12-28] MEDS: Benztropine Mesylate 1 MG TABLET PO (20:08)
[2023-12-28] MEDS: traZODone HCL 50 MG TABLET PO ×2 (20:09→20:40)
[2023-12-29 08:10] VITALS: BP 98/56; PULSE 77; RESP 16; TEMP 36.5; O2SAT 97
[2023-12-29] MEDS: Topiramate 25 MG TABLET PO ×2 (08:15→20:22)
[2023-12-29] MEDS: Nicotine Polacrilex 2 MG GUM 4 MG BUCCAL ×3 (08:15→18:35)
[2023-12-29] MEDS: Gabapentin 300 MG CAPSULE PO ×3 (08:15→20:21)
[2023-12-29] MEDS: LORazepam 1 MG TABLET 2 MG PO ×3 (08:15→20:21)
--- NOTE | 2023-12-29 08:44 | HO.PSYCHPN ---
Subjective Subjective Date of Service: 12/29/23 Reason For Visit: Crisis Subjective Notes: Conditional Voluntary and 3 Day Interim History: The nursing staff reported the patient signed a 3 day notice, she was seen in the unit. Denies new safety concerns, she reported diarrhea. On interview the patient reported more anxiety and wanted p.r.n. medications. She has been compliant with treatment Mental Status Exam Mental Status Exam Patient Appearance: Well Grooomed and Appropriate Patient Orientation: Person and Situation Level of Consciousness: Awake Patient Behavior: Guarded and Passive Mood Description: Withdrawn Affect Description: Constricted Patient Cognition Impaired: Yes Ability to Follow Directions: Good Speech Pattern: Clear Hallucinations: None Delusions: Ideas of Reference Thought Process: Distracted and Slowed Thinking Thought Content: positive for [place] and positive for Poverty of Content Judgement: Fair Diagnostics Vital Signs (24Hr): Vital Signs - 24 hr 12/28/23 20:00 12/29/23 08:10 Temperature 97.6 F 97.7 F Pulse Rate 60 77 Respiratory Rate 16 16 Blood Pressure 126/82 98/56 L Pulse Oximetry 99 97 Oxygen Delivery Method Room Air Room Air BMI result Body Mass Index 33.4 Medications Medications Current Medications Acetaminophen (Acetaminophen 325 Mg Tablet) 650 mg PO Q6H PRN PRN Reason: Headache/Pain Mild Scale (1-3) Al Hydroxide/Mg Hydroxide (Magnesium Hydrox/Alum Hydrox 30 Ml Oral.Susp) 30 ml PO Q6H PRN PRN Reason: Heartburn/Nausea Albuterol Sulfate (Albuterol Sulfate 90 Mcg 8 Gm Inhaler) 2 puff INHALE Q6H PRN PRN Reason: wheezing Benztropine Mesylate (Benztropine Mesylate 1 Mg Tablet) 1 mg PO BEDTIME [facility]RI[facility] Last Admin: 12/28/23 20:08 Dose: 1 mg Gabapentin (Gabapentin 300 Mg Capsule) 300 mg PO TID ENRI[facility] Last Admin: 12/29/23 08:15 Dose: 300 mg Haloperidol (Haloperidol 5 Mg Tablet) 5 mg PO BEDTIME ENRI[facility] Last Admin: 12/28/23 20:08 Dose: 5 mg Haloperidol (Haloperidol 5 Mg Tablet) 5 mg PO TID PRN PRN Reason: Psychosis Last Admin: 12/28/23 16:29 Dose: 5 mg Hydroxyzine HCl (Hydroxyzine Hcl 50 Mg Tablet) 50 mg PO TID PRN PRN Reason: anxiety Last Admin: 12/28/23 20:08 Dose: 50 mg Loperamide HCl (Loperamide Hcl 2 Mg Capsule) 2 mg PO Q6H PRN PRN Reason: Diarrhea Lorazepam (Lorazepam 1 Mg Tablet) 2 mg PO TID [facility] Last Admin: 12/29/23 08:15 Dose: 2 mg Magnesium Hydroxide (Milk Of Magnesia 30 Ml Oral.Susp) 30 ml PO DAILY PRN PRN Reason: Constipation Nicotine (Nicotine 21 Mg Patch.Td24) 21 mg TRANSDERMA DAILY [facility] Last Admin: 12/29/23 08:16 Dose: Not Given Nicotine Polacrilex (Nicotine Polacrilex 2 Mg Gum) 4 mg BUCCAL Q2H PRN PRN Reason: Nicotine Cravings Last Admin: 12/29/23 08:15 Dose: 4 mg Quetiapine Fumarate (Quetiapine Fumarate 200 Mg Tablet) 200 mg PO BEDTIME [facility] Last Admin: 12/28/23 20:08 Dose: 200 mg Sodium Chloride (Sodium Chloride 0.65 % Nasal 44 Ml Sprbtl) 1 spray NOSTRIL-B Q1H PRN PRN Reason: Nasal Congestion Topiramate (Topiramate 25 Mg Tablet) 25 mg PO BID [facility] Last Admin: 12/29/23 08:15 Dose: 25 mg Trazodone HCl (Trazodone Hcl 50 Mg Tablet) 50 mg PO BEDTIME MRX1 PRN PRN Reason: Insomnia Last Admin: 12/28/23 20:40 Dose: 50 mg Allergies Allergies Allergy/AdvReac Type Severity Reaction Status Date / Time dog dander [DOG DANDER] Allergy Intermediate ITCHY EYES Verified 12/15/23 07:45 pollen extracts [POLLEN] Allergy Intermediate STUFFY, Verified 12/15/23 07:45 ITCHY EYES Assessment & Plan Assessment & Plan (1) Schizoaffective disorder, bipolar type: Status: Acute Code(s): F25.0 - Schizoaffective disorder, bipolar type (2) PTSD (post-traumatic stress disorder): Status: Acute Code(s): F43.10 - Post-traumatic stress disorder, unspecified Plan Patient is a 38-year-old female with history of schizoaffective disorder, PTSD, cocaine use disorder who was seen at [facility] due to suicidal ideation with plan to suffocate herself secondary to increased visual hallucinations. Plan: / day notice 15 minute safety checks Continue home medications Encourage groups Discharge planning Reason for continued inpatient stay Substantial Risk for: inability to function, rapid decompensation and med/psych decompensation Time Spent With Patient Time: Total time managing care of this patient today __20__ minutes.
[2023-12-29] MEDS: HaloperidoL 5 MG TABLET PO ×2 (17:44→20:21)
[2023-12-29 19:05] VITALS: BP 128/82; PULSE 114; RESP 16; TEMP 36.7; O2SAT 99
[2023-12-29] MEDS: traZODone HCL 50 MG TABLET PO ×2 (20:21→21:36)
[2023-12-29] MEDS: Benztropine Mesylate 1 MG TABLET PO (20:22)
[2023-12-29] MEDS: QUEtiapine Fumarate 200 MG TABLET PO (20:22)
[2023-12-30] MEDS: LORazepam 1 MG TABLET 2 MG PO ×3 (08:13→20:00)
[2023-12-30] MEDS: Gabapentin 300 MG CAPSULE PO ×3 (08:13→20:00)
[2023-12-30] MEDS: Topiramate 25 MG TABLET PO ×2 (08:13→20:02)
[2023-12-30 08:33] LABS: Estimated Average Glucose 123 mg/dL; Hemoglobin A1C 122.8898 umol/L; Hemoglobin A1c % 5.9 % (<6.0); Total Hemoglobin (HGBA1C) 3003.7986 umol/L
[2023-12-30 08:47] LABS: Alanine Aminotransferase 23 U/L (0-31); Albumin Level 3.8 g/dL (3.5-5.0); Alkaline Phosphatase 68 U/L (39-117); Anion Gap 14 (12-20); Aspartate Amino Transferase 17 U/L (5-31); Bilirubin Total 0.1 mg/dL (0.0-1.0); Blood Urea Nitrogen 17 mg/dL (9-16); Carbon Dioxide 20 mmol/L (22-29); Chloride 110 mmol/L (96-108); Cholesterol 242 mg/dL (<200); Creatinine Clr Calc Pharmacy 113.2; Estimated Glomerular Filt Rate > 60; Glucose Fasting 140 mg/dL (60-99); HDL Cholesterol 44 mg/dL (>40); Potassium 3.7 mmol/L (3.3-5.1); Sodium 140 mmol/L (135-145); Total Protein 6.8 g/dL (6.5-8.0); Triglycerides 461 mg/dL (<150)
[2023-12-30] MEDS: Nicotine Polacrilex 2 MG GUM 4 MG BUCCAL ×3 (08:55→16:47)
--- NOTE | 2023-12-30 10:25 | P.PNPSI_ITS ---
Subjective Subjective Date of Service: 12/30/23 Reason For Visit: Crisis Subjective Notes: 3 Day Interim History: Active on unit, listening to music on unit headphones. attending groups. 3 day up on 12/31/23. Patient reports feeling much better since admission. Pt stated, the medicine makes me feel a lot better. I'm no longer anxious or depressed. I'm going to try to go to [facility] to stay sober . Per nursing, pt slept 8 hours last night. denies SI/HI/VH/AH. Pt to be discharged on 3 day tomorrow. Medication Compliance: Yes Side effects from medications: No Attending Groups: Yes Review of Systems Constitutional: Reports as per HPI Eyes: Reports as per HPI Reports as per HPI Cardiovascular: Reports as per HPI Respiratory: Reports as per HPI Gastrointestinal: Reports as per HPI Genitourinary: Reports as per HPI Musculoskeletal: Reports as per HPI Skin/Breast: Reports as per HPI Reports as per HPI Psychiatric: Reports as per HPI Endocrine: Reports as per HPI Hematologic/Lymphatic: Reports as per HPI Allergic/Immunologic: Reports as per HPI Mental Status Exam Mental Status Exam Narrative: Pt is alert and oriented; behavior is cooperative and calm; dressed in casual attire; mood is described as good ; eye contact appropriate; Speech is normal rate, volume and not pressured; thought process is organized and goal directed; Thought content is on tx; denies SI/HI/VH/AH. Diagnostics Vital Signs (24Hr): Vital Signs - 24 hr 12/29/23 19:05 Temperature 98.1 F Pulse Rate 114 H Respiratory Rate 16 Blood Pressure 128/82 Pulse Oximetry 99 Oxygen Delivery Method Room Air BMI result Body Mass Index 33.4 Labs 12/30/23 08:18 Labs: Laboratory Results - last 48 hr 12/30/23 08:18 Sodium 140 Potassium 3.7 Chloride 110 H Carbon Dioxide 20 L Anion Gap 14 BUN 17 H Creatinine 0.77 Estim Creat Clear Calc 113.2 Estimated GFR > 60 Fasting Glucose 140 H Estimat Average Glucose 123 Hemoglobin A1c % 5.9 Calcium 9.0 D Total Bilirubin 0.1 AST 17 ALT 23 Alkaline Phosphatase 68 Total Protein 6.8 Albumin 3.8 Triglycerides 461 H Cholesterol 242 H LDL Cholesterol, Calc TNP HDL Cholesterol 44 Medications Medications Current Medications Acetaminophen (Acetaminophen 325 Mg Tablet) 650 mg PO Q6H PRN PRN Reason: Headache/Pain Mild Scale (1-3) Al Hydroxide/Mg Hydroxide (Magnesium Hydrox/Alum Hydrox 30 Ml Oral.Susp) 30 ml PO Q6H PRN PRN Reason: Heartburn/Nausea Albuterol Sulfate (Albuterol Sulfate 90 Mcg 8 Gm Inhaler) 2 puff INHALE Q6H PRN PRN Reason: wheezing Benztropine Mesylate (Benztropine Mesylate 1 Mg Tablet) 1 mg PO BEDTIME REPLACED BY [facility] Last Admin: 12/29/23 20:22 Dose: 1 mg Gabapentin (Gabapentin 300 Mg Capsule) 300 mg PO TID REPLACED BY [facility] Last Admin: 12/30/23 08:13 Dose: 300 mg Haloperidol (Haloperidol 5 Mg Tablet) 5 mg PO BEDTIME REPLACED BY [facility] Last Admin: 12/29/23 20:21 Dose: 5 mg Haloperidol (Haloperidol 5 Mg Tablet) 5 mg PO TID PRN PRN Reason: Psychosis Last Admin: 12/29/23 17:44 Dose: 5 mg Hydroxyzine HCl (Hydroxyzine Hcl 50 Mg Tablet) 50 mg PO TID PRN PRN Reason: anxiety Last Admin: 12/28/23 20:08 Dose: 50 mg Loperamide HCl (Loperamide Hcl 2 Mg Capsule) 2 mg PO Q6H PRN PRN Reason: Diarrhea Lorazepam (Lorazepam 1 Mg Tablet) 2 mg PO TID REPLACED BY [facility] Last Admin: 12/30/23 08:13 Dose: 2 mg Magnesium Hydroxide (Milk Of Magnesia 30 Ml Oral.Susp) 30 ml PO DAILY PRN PRN Reason: Constipation Nicotine (Nicotine 21 Mg Patch.Td24) 21 mg TRANSDERMA DAILY REPLACED BY [facility] Last Admin: 12/30/23 08:15 Dose: Not Given Nicotine Polacrilex (Nicotine Polacrilex 2 Mg Gum) 4 mg BUCCAL Q2H PRN PRN Reason: Nicotine Cravings Last Admin: 12/30/23 08:55 Dose: 4 mg Quetiapine Fumarate (Quetiapine Fumarate 200 Mg Tablet) 200 mg PO BEDTIME REPLACED BY [facility] Last Admin: 12/29/23 20:22 Dose: 200 mg Sodium Chloride (Sodium Chloride 0.65 % Nasal 44 Ml Sprbtl) 1 spray NOSTRIL-B Q1H PRN PRN Reason: Nasal Congestion Topiramate (Topiramate 25 Mg Tablet) 25 mg PO BID REPLACED BY [facility] Last Admin: 12/30/23 08:13 Dose: 25 mg Trazodone HCl (Trazodone Hcl 50 Mg Tablet) 50 mg PO BEDTIME MRX1 PRN PRN Reason: Insomnia Last Admin: 12/29/23 21:36 Dose: 50 mg Allergies Allergies Allergy/AdvReac Type Severity Reaction Status Date / Time dog dander [DOG DANDER] Allergy Intermediate ITCHY EYES Verified 12/15/23 07:45 pollen extracts [POLLEN] Allergy Intermediate STUFFY, Verified 12/15/23 07:45 ITCHY EYES Assessment & Plan Assessment & Plan (1) Schizoaffective disorder, bipolar type: Status: Acute Code(s): F25.0 - Schizoaffective disorder, bipolar type (2) PTSD (post-traumatic stress disorder): Status: Acute Code(s): F43.10 - Post-traumatic stress disorder, unspecified Plan Patient is a 38-year-old female with history of schizoaffective disorder, PTSD, cocaine use disorder who was seen at [facility] due to suicidal ideation with plan to suffocate herself secondary to increased visual hallucinations. Plan: CV/3 day notice 15 minute safety checks Continue home medications Encourage groups Discharge planning 12/28: The nursing staff reported the patient signed a 3 day notice, she was seen in the unit. Denies new safety concerns, she reported diarrhea. On interview the patient reported more anxiety and wanted p.r.n. medications. She has been compliant with treatment 12/29: Active on unit, listening to music on unit headphones. attending groups. 3 day up on 12/31/23. Patient reports feeling much better since admission. Pt stated, the medicine makes me feel a lot better. I'm no longer anxious or depressed. I'm going to try to go to [facility] to stay sober . Per nursing, pt slept 8 hours last night. denies SI/HI/VH/AH. Pt to be discharged on 3 day tomorrow. Patient educated on: diagnosis, medication risk/benefits, substance abuse and therapeutic strategies Reason for continued inpatient stay Substantial Risk for: stable for discharge Time Spent With Patient Time: Total time managing care of this patient today _20___ minutes.
[2023-12-30] MEDS: HaloperidoL 5 MG TABLET PO ×2 (12:21→20:02)
[2023-12-30 19:55] VITALS: BP 104/60; PULSE 106; RESP 18; TEMP 36.8; O2SAT 96
[2023-12-30] MEDS: Benztropine Mesylate 1 MG TABLET PO (20:00)
[2023-12-30] MEDS: traZODone HCL 50 MG TABLET PO (20:00)
[2023-12-30] MEDS: QUEtiapine Fumarate 200 MG TABLET PO (20:02)
[2023-12-31 07:37] VITALS: BP 125/63; PULSE 78; RESP 16; TEMP 36.3; O2SAT 96
[2023-12-31] MEDS: LORazepam 1 MG TABLET 2 MG PO (08:24)
[2023-12-31] MEDS: Gabapentin 300 MG CAPSULE PO (08:24)
[2023-12-31] MEDS: Topiramate 25 MG TABLET PO (08:24)
[2023-12-31] MEDS: Nicotine Polacrilex 2 MG GUM 4 MG BUCCAL (08:39)
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
== END 2023-12-31 11:19 | disposition home or self-care (01) | DRG 750 ==
PROVIDERS: Physician Assistant; Admitting Provider Registered Nurse; PCP Family Medicine; Responsible Provider Registered Nurse; Visit Provider Psychiatry & Neurology Psychiatry
DX: F25.0 Schizoaffective disorder, bipolar type (principal); F43.10 Post-traumatic stress disorder, unspecified; Z87.891 Personal history of nicotine dependence; Z79.899 Other long term (current) drug therapy
CPT/HCPCS: 36415; 80053; 80061; 83036

== ENCOUNTER → 2023-12-26 14:38 | Outpatient (BNV) | payer MEDICAID, SELFPAY | PROVIDERS: Admitting Provider Registered Nurse; PCP Family Medicine; Visit Provider Physician Assistant | DX: Z00.8 Encounter for other general examination (principal); R10.84 Generalized abdominal pain; R19.7 Diarrhea, unspecified; K62.5 Hemorrhage of anus and rectum; E66.811 Obesity, class 1 | CPT/HCPCS: 99222 ==

== ENCOUNTER → 2023-12-26 14:38 | Outpatient (BNV) | payer OTHER, SELFPAY | PROVIDERS: Admitting Provider Registered Nurse; PCP Family Medicine; Responsible Provider Registered Nurse; Visit Provider Psychiatry & Neurology Psychiatry | DX: F25.0 Schizoaffective disorder, bipolar type (principal); F43.10 Post-traumatic stress disorder, unspecified | CPT/HCPCS: 99231; 99233 ==

== ENCOUNTER 2024-01-27 09:44 | Emergency (ER) | payer MEDICAID, SELFPAY ==
[2024-01-27 09:56] VITALS: BP 110/78; PULSE 90; RESP 16; TEMP 36.4; O2SAT 98; BMI 34.1
--- NOTE | 2024-01-27 10:10 | ECG_ITS ---
Test Reason : RULE OUT CARDIO Blood Pressure : / mmHG Vent. Rate : 090 BPM Atrial Rate : 090 BPM P-R Int : 140 ms QRS Dur : 078 ms QT Int : 376 ms P-R-T Axes : 063 068 035 degrees QTc Int : 459 ms Normal sinus rhythm Normal ECG When compared with ECG of 14-DEC-2023 19:16, No significant change was found Referred By: Marysol Smith Electronically Signed By:WILLAM BEEBE
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
[2024-01-27 12:08] LABS: Alanine Aminotransferase 22 U/L (0-31); Albumin Level 4.2 g/dL (3.5-5.0); Alkaline Phosphatase 67 U/L (39-117); Anion Gap 15 (12-20); Aspartate Amino Transferase 28 U/L (5-31); Bilirubin Direct 0.1 mg/dL (0.0-0.5); Bilirubin Total 0.5 mg/dL (0.0-1.0); Blood Urea Nitrogen 15 mg/dL (9-16); Calcium 8.6 mg/dL (8.4-10.2); Carbon Dioxide 24 mmol/L (22-29); Chloride 104 mmol/L (96-108); Estimated Glomerular Filt Rate > 60; Glucose Random 142 mg/dL (60-115); Potassium 3.1 mmol/L (3.3-5.1); Sodium 140 mmol/L (135-145); Total Protein 7.2 g/dL (6.5-8.0)
[2024-01-27 12:15] LABS: Basophils Percent Auto 0.7 % (0-2); Eosinophils Absolute Auto 0.1 X10*3/uL (0.0-0.4); Hematocrit 36.8 % (37.0-47.0); Hemoglobin 12.2 g/dl (12.0-16.0); Imm Gran Abs Auto 0.01 X10*3/uL (0.00-0.03); Imm Gran Pct Auto 0.2 % (0.0-0.4); Lymphocytes Absolute Auto 2.1 X10*3/uL (1.2-4.9); Lymphocytes Percent Auto 33.9 % (20-40); Mean Corpuscular HGB Conc 33.2 g/dl (31.0-35.0); Mean Corpuscular Hemoglobin 26.6 pg (27.0-33.0); Mean Corpuscular Volume 80.2 fL (80.0-98.0); Mean Platelet Volume 9.7 fL (9.4-12.3); Monocytes Absolute Auto 0.5 X10*3/uL (0.1-1.2); Monocytes Percent Auto 8.7 % (2-11); Neutrophils Absolute Auto 3.4 x10*3/uL (2.0-8.3); Neutrophils Percent Auto 55.5 % (45-73); Platelet Count 242 X10*3/uL (160-400); Red Blood Count 4.59 X10*6/uL (4.20-5.50); Red Cell Distribution Width 15.1 % (11.0-16.0); White Blood Count 6.1 X10*3/uL (4.8-10.8)
[2024-01-27] MEDS: Potassium Chloride ER 20 MEQ TAB.ER.PRT 40 MEQ PO (13:20)
[2024-01-27 13:35] LABS: Appearance Urine Clear; Color Urine Yellow; Glucose Urine UA Negative (Negative); Leukocyte Esterase Urine Trace (Negative); Nitrite Urine Negative (Negative); UMIC TRIGGER UACC YES; Urine Blood Small (1+) (Negative); Urine Ketones 15 mg/dL (Negative); Urine Protein Negative (Neg-Trace)
[2024-01-27 13:36] LABS: UPreg QC Valid YES; Urine Pregnancy NEGATIVE (NEGATIVE)
[2024-01-27 13:43] LABS: Bacteria Urine None Seen (None Seen); Hyaline Casts Urine 0-2 /LPF (0-2); RBC Urine 0-2 /HPF (0-2); Squamous Epithelial Cell Urine 0-2 /HPF (0-2); WBC Urine 0-5 /HPF (0-5)
[2024-01-27 13:44] LABS: Amphetamine Screen Urine Not Detected (Not Detect); Barbiturates, Urine Not Detected (Not Detect); Benzodiazepines Screen Urine Not Detected (Not Detect); Buprenorphine Scr Not Detected (Not Detect); Cannabinoid Screen Urine Not Detected (Not Detect); Cocaine Screen Urine POSITIVE (Not Detect); Fentanyl, urine Not Detected (Not Detect); Methadone Screen, Urine Not Detected (Not Detect); Opiate Screen Urine Not Detected (Not Detect); Oxycodone Screen Urine Not Detected (Not Detect); Phencyclidine Screen Urine Not Detected (Not Detect)
[2024-01-27 18:05] VITALS: BP 101/73; PULSE 88; RESP 16; TEMP 36.4; O2SAT 98
--- NOTE | 2024-01-28 06:09 | PC.NURSE ---
Patient slept through the night, no distress observed/reported, meds and meals compliant, disposition per care team is HEMAL follow up, med rec completed/pending provider's approval, VSS, will continue to monitor
[2024-01-28 08:02] VITALS: BP 122/83; PULSE 96; RESP 18; TEMP 36.6; O2SAT 97
--- NOTE | 2024-01-28 09:29 | MHC.CARE ---
Pt does not meet the criteria for IPLOC or a higher level of care. Pt's mental health and passive SI is in the context use of substance use and chrnoic homelessness. Pt will be referred to the recovery team for substance use resources, however if Pt does not qualify for detox will be discharged. Pt is aware.
--- NOTE | 2024-01-28 10:05 | PC.NURSE ---
pt speaking w/ recovery at this time.
--- NOTE | 2024-01-28 10:16 | MHC.CARE ---
Pt declined recovery resources and will be discharged. Provider in agreement as Pt does not meet the criteria for a higher level of care.
[2024-01-28 10:26] VITALS: BP 122/83; PULSE 96; RESP 18; TEMP 36.6; O2SAT 97
--- NOTE | 2024-01-28 10:30 | PC.NURSE ---
pt refused care offered from recovery team. pt provided w/ resources pamphlet prior to discharge.
--- NOTE | 2024-01-28 10:51 | MHC.RECOVRN ---
Met with pt in [facility] prior to discharge and after cleared by CARE Team. Pt reports period of recovery since January 05 with recurrence on 01/24 and 01/25. Pt reports on those days she used cocaine, INH, $50 each day. Educated pt on ATS, not eligible at this time. Discussed outpatient recovery resources and supports. Pt reports she has been prescribed topiramate x 2 months for stimulant cravings from Dr. Chang with positive effect. Provided pt with written resources and encouraged pt to visit [facility]. Pt denies questions or concerns at this time. CARE Team and RN aware.
== END 2024-01-28 10:32 | disposition home or self-care (01) ==
PROVIDERS: Emergency Medicine; Emergency Provider Emergency Medicine Emergency Medical Services; PCP Family Medicine
DX: F33.1 Major depressive disorder, recurrent, moderate (principal); R45.851 Suicidal ideations; E87.6 Hypokalemia; F14.10 Cocaine abuse, uncomplicated; Z87.891 Personal history of nicotine dependence; Z79.899 Other long term (current) drug therapy; Z51.81 Encounter for therapeutic drug level monitoring; Z71.51 Drug abuse counseling and surveillance of drug abuser
CPT/HCPCS: 36415; 80048; 80076; 80307; 81001; 81025; 83735; 85025; 93005; 99285; S9485

== ENCOUNTER → 2024-01-27 10:10 | Outpatient (BNV) | payer MEDICAID, SELFPAY | PROVIDERS: Emergency Provider Emergency Medicine; PCP Family Medicine; Visit Provider Internal Medicine | DX: R45.851 Suicidal ideations (principal) | CPT/HCPCS: 93010 ==

== ENCOUNTER 2024-04-13 11:26 | Emergency (ER) | payer MEDICAID, SELFPAY ==
--- NOTE | 2024-04-13 11:49 | ED.GENADULT ---
HPI - General Adult General Chief complaint: Psychiatric Symptoms Stated complaint: depressed Time Seen by Provider: 04/13/24 12:13 Related Data Home Medications ?Medication ?Instructions ?Recorded ?Confirmed haloperidol 2 mg tablet 6 mg PO BEDTIME 04/14/24 04/14/24 hydroxyzine pamoate 50 mg capsule 50 mg PO Q6H PRN Anxiety 04/14/24 04/14/24 nicotine (polacrilex) 2 mg gum 2 mg Q2H PRN Smoking Cessation 04/14/24 04/14/24 quetiapine 300 mg tablet 300 mg PO BEDTIME 04/14/24 04/14/24 sertraline 25 mg tablet 25 mg PO DAILY 04/14/24 04/14/24 topiramate 50 mg tablet 50 mg PO BID 04/14/24 04/14/24 trazodone 50 mg tablet 50 mg PO BEDTIME PRN insomnia 04/14/24 04/14/24 Previous Rx's ?Medication ?Instructions ?Recorded albuterol sulfate 90 mcg/actuation 2 puff inhalation Q6H PRN wheezing 11/26/23 aerosol inhaler (Ventolin HFA) 30 days #1 inhaler Allergies Allergy/AdvReac Type Severity Reaction Status Date / Time dog dander [DOG DANDER] Allergy Intermediate ITCHY EYES Verified 04/13/24 11:51 pollen extracts [POLLEN] Allergy Intermediate STUFFY, Verified 04/13/24 11:51 ITCHY EYES Pork/Porcine Containing Allergy Itching Verified 04/13/24 11:51 Products PMFSH Past Medical History Medical History Generalized abdominal discomfort Medical clearance for psychiatric admission PTSD (post-traumatic stress disorder) Prediabetes Oligomenorrhea Routine medical exam Anxiety Pseudoseizures Opioid use disorder Bipolar 1 disorder, manic, moderate Social History Social History Household Members: None Household Members Other:: says has spouse but unhoused Housing: Homeless Do you presently have visiting nurse or other home services: No Unable to assess alcohol history related to: Unknown Alcohol intake: former Patient Tobacco Use Status: Former Tobacco user Tobacco use type: Cigarette Cigarette Packs Per Day: 1 Cigarettes Per Day: 20.0 Years Smoked: Many' Smoked in Last 30 Days: No e-Cigarette/Vaping Use: Former Use Second Hand Smoke Exposure: No Use of substances other than those prescribed or required for medical reasons: Yes Substance Use Type: Crack/Cocaine and Heroin Advance Directives: No Advance Directives Information Provided: Yes service: No Sexual orientation: Straight/Heterosexual Physical Exam ED Vital Signs: Vital Signs - 24 hr 04/14/24 13:49 Temperature 98.9 F Pulse Rate 88 Respiratory Rate 17 Blood Pressure 102/67 Pulse Oximetry 96 Oxygen Delivery Method Room Air BMI result Body Mass Index 33.4 Course Course Course Narrative: RME performed by Nataliia Cevallos PA-C. Patient is a 38 year old assigned female at presenting to the emergency department with depression, vague SI, alcohol and drug use. Patient states that she has been more depressed lately with vague SI, and she is using alcohol and drugs. Detailed physical exam and review of systems are deferred to the inspector metal fabricating. fiberglass product tester aware of patient. Nataliia Cevallos PA-C ---> Patient seen and dispositioned by Dr. Gonsalez. Please review his note from 04/13/2024. Medical Decision Making Lab Data 04/13/24 12:26 04/13/24 12:26 Labs: Lab Results 04/13/24 04/13/24 Range/Units 12:22 12:26 WBC 7.8 (4.8-10.8) X10*3/uL RBC 4.61 (4.20-5.50) X10*6/uL Hgb 12.3 (12.0-16.0) g/dl Hct 37.0 (37.0-47.0) % MCV 80.3 (80.0-98.0) fL MCH 26.7 L (27.0-33.0) pg MCHC 33.2 (31.0-35.0) g/dl RDW 16.4 H (11.0-16.0) % Plt Count 267 (160-400) X10*3/uL MPV 9.5 (9.4-12.3) fL Immature Gran % (Auto) 0.4 (0.0-0.4) % Neut % (Auto) 65.3 (45-73) % Lymph % (Auto) 27.1 (20-40) % [place] % (Auto) 5.4 (2-11) % Eos % (Auto) 1.3 (0-4) % Baso % (Auto) 0.5 (0-2) % Lymph # (Auto) 2.1 (1.2-4.9) X10*3/uL [place] # (Auto) 0.4 (0.1-1.2) X10*3/uL Eos # (Auto) 0.1 (0.0-0.4) X10*3/uL Baso # (Auto) 0.0 (0.0-0.2) X10*3/uL Abs Immat Gran (auto) 0.03 (0.00-0.03) X10*3/uL Absolute Neuts (auto) 5.1 (2.0-8.3) x10*3/uL Absolute Nucleated RBC 0.000 (0.0-0.012) X10*3/uL Nucleated RBC % (auto) 0.0 (0.0-0.2) /100WBC Sodium 139 (135-145) mmol/L Potassium 3.6 (3.3-5.1) mmol/L Chloride 110 H (96-108) mmol/L Carbon Dioxide 19 L (22-29) mmol/L Anion Gap 14 (12-20) BUN 16 (9-16) mg/dL Creatinine 0.71 (0.5-1.4) mg/dL Estim Creat Clear Calc 122.8 Estimated GFR > 60 Random Glucose 153 H (60-115) mg/dL Calcium 8.8 (8.4-10.2) mg/dL Total Bilirubin 0.2 (0.0-1.0) mg/dL AST 43 H (5-31) U/L ALT 32 H (0-31) U/L Alkaline Phosphatase 57 (39-117) U/L Total Protein 7.5 (6.5-8.0) g/dL Albumin 4.2 (3.5-5.0) g/dL Urine Color Yellow Urine Appearance Cloudy Urine pH 5.5 (5.0-9.0) Ur Specific [place] 1.025 (1.005-1.025) Urine Protein Trace (Neg-Trace) mg/dL Urine Glucose (UA) Negative (Negative) mg/dL Urine Ketones Negative (Negative) mg/dL Urine Blood Moderate (2+) H (Negative) Urine Nitrite Negative (Negative) Ur Leukocyte Esterase Moderate (2+) H (Negative) Urine RBC 3-5 H (0-2) /HPF Urine WBC >50 H (0-5) /HPF Ur Squamous Epith Cells 11-20 (0-2) /HPF Urine Bacteria 3+ (None Seen) Hyaline Casts 0-2 (0-2) /LPF Urine Test NEGATIVE (NEGATIVE) Salicylates < 5.0 L (15-30) mg/dL Urine Opiates Screen Not Detected (Not Detect) Ur Buprenorphine Scrn Not Detected (Not Detect) ng/mL Ur Oxycodone Screen Not Detected (Not Detect) ng/mL Urine Methadone Screen Not Detected (Not Detect) ng/mL Urine Fentanyl Screen Not Detected (Not Detect) Ur Barbiturates Screen Not Detected (Not Detect) Ur Phencyclidine Scrn Not Detected (Not Detect) Ur Amphetamines Screen Not Detected (Not Detect) U Benzodiazepines Scrn Not Detected (Not Detect) Urine Cocaine Screen POSITIVE H (Not Detect) U Marijuana (THC) Screen Not Detected (Not Detect) Ethyl Alcohol < 10 mg/dL Discharge Plan Discharge Clinical Impression: Depression, Schizoaffective disorder, bipolar type, Cocaine use disorder Patient Disposition: Xfer Psychiatric Hosp Transfer Details: TO: [facility], [address] Prescriptions: No Action albuterol sulfate [Ventolin HFA] 90 mcg/actuation HFA aerosol inhaler 2 puff inhalation Q6H PRN (Reason: wheezing) 30 Days Qty: 1 0RF quetiapine 300 mg tablet 300 mg PO BEDTIME trazodone 50 mg tablet 50 mg PO BEDTIME PRN (Reason: insomnia) nicotine (polacrilex) 2 mg gum 2 mg Q2H PRN (Reason: Smoking Cessation) hydroxyzine pamoate 50 mg capsule 50 mg PO Q6H PRN (Reason: Anxiety) sertraline 25 mg tablet 25 mg PO DAILY haloperidol 2 mg tablet 6 mg PO BEDTIME topiramate 50 mg tablet 50 mg PO BID Referrals: Edwige Chang MD [Primary Care Provider] - Interventions: [place]-Suicide Risk Severity Scale Last Done: 04/13/24 12:36 Acute Care Transfer Worksheet (ED) Last Done: 04/14/24 13:49 Discharge Date/Time: 04/14/24 13:51 Print Language: Upper Sorbian
[2024-04-13 11:51] VITALS: BP 110/76; PULSE 94; RESP 16; TEMP 36.4; O2SAT 98; BMI 33.4
--- NOTE | 2024-04-13 12:20 | ED.PSYCH ---
HPI - Psych General Chief Complaint: Psychiatric Symptoms Stated Complaint: depressed Time Seen by Provider: 04/13/24 12:13 Source: patient Limitations: no limitations History of Present Illness HPI Narrative: This is a 38 years old female patient presented to emergency department with depression and SI. She has an extensive psychiatric history history of bipolar disorder history of anxiety history of schizoaffective disorder she had prior psych hospitalization at [facility] hospitalization MD complaint: feels depressed Onset (ago): minute(s) Duration: constant History of same: Yes Relieving factors: none Exacerbating factors: none Associated psychiatric symptoms: depression Associated symptoms: denies other symptoms Related Data Home Medications ?Medication ?Instructions ?Recorded ?Confirmed gabapentin 300 mg capsule 300 mg PO TID 01/27/24 01/27/24 haloperidol 5 mg tablet 5 mg BEDTIME 01/27/24 01/27/24 lorazepam 2 mg tablet 2 mg PO BID PRN anxiety 01/27/24 01/27/24 quetiapine 200 mg tablet 200 mg PO BEDTIME 01/27/24 01/27/24 topiramate 25 mg tablet 25 mg BID 01/27/24 01/27/24 Previous Rx's ?Medication ?Instructions ?Recorded albuterol sulfate 90 mcg/actuation 2 puff inhalation Q6H PRN wheezing 11/26/23 aerosol inhaler (Ventolin HFA) 30 days #1 inhaler Allergies Allergy/AdvReac Type Severity Reaction Status Date / Time dog dander [DOG DANDER] Allergy Intermediate ITCHY EYES Verified 04/13/24 11:51 pollen extracts [POLLEN] Allergy Intermediate STUFFY, Verified 04/13/24 11:51 ITCHY EYES Pork/Porcine Containing Allergy Itching Verified 04/13/24 11:51 Products Review of Systems Constitutional: Constitutional: Reports no additional constitutional complaints Cardiovascular: Cardiovascular: Reports no additional cardiovascular complaints Psychiatric: Psychiatric: Reports as per HPI [facility] Past Medical History Attestation statement: The following information was validated with the patient. [facility] Narrative: Bipolar schizoaffective disorder depression Medical History Generalized abdominal discomfort Medical clearance for psychiatric admission PTSD (post-traumatic stress disorder) Prediabetes Oligomenorrhea Routine medical exam Anxiety Pseudoseizures Opioid use disorder Bipolar 1 disorder, manic, moderate Social History Social History Household Members: None Household Members Other:: says has spouse but unhoused Housing: Homeless Do you presently have visiting nurse or other home services: No Unable to assess alcohol history related to: Unknown Alcohol intake: former Patient Tobacco Use Status: Former Tobacco user Tobacco use type: Cigarette Cigarette Packs Per Day: 1 Cigarettes Per Day: 20.0 Years Smoked: Many' Smoked in Last 30 Days: No e-Cigarette/Vaping Use: Former Use Second Hand Smoke Exposure: No Use of substances other than those prescribed or required for medical reasons: Yes Substance Use Type: Crack/Cocaine and Heroin Advance Directives: No Advance Directives Information Provided: Yes service: No Sexual orientation: Straight/Heterosexual Physical Exam Vital Signs: Vital Signs: Last Vital Signs Temp 98.4 F 04/13/24 15:47 Pulse 97 04/13/24 15:47 Resp 14 04/13/24 15:47 BP 114/63 04/13/24 15:47 Pulse Ox 98 04/13/24 15:47 O2 Del Method Room Air 04/13/24 15:47 BMI result Body Mass Index 33.4 No acute distress looks well Const: General: cooperative Nutritional Appearance: well nourished Orientation/consciousness: patient oriented x3 Limitations: no limitations HEENT: Head: Yes normal to inspection Ears: hearing grossly normal bilaterally General nose exam: Normal external nose present Face and sinus: Yes normal facial exam Mouth: Normal oral and palatal mucosa present Neck: Neck: Yes normal visual inspection and Yes full ROM Chest: Chest palpation & inspection: normal inspection of the chest Resp: Effort & Inspection: normal respiratory effort Auscultation: clear to auscultation bilaterally Cardio: Jugular venous distension: no JVD Rate: regular rate Rhythm: regular rhythm GI: Inspection: Yes normal to inspection Palpation (GI): Soft to palpation Skin: General skin exam: no rashes or lesions noted and elasticity normal Neuro: General: patient oriented x3 Course Reevaluation(s) Reevaluation #1: signed out to Dr Wood Time: 16:38 Medical Decision Making Medical Decision Making [facility] Narrative: Patient presented to the emergency department with chief complaint of depression will get psych consult Differential Diagnosis Differential Diagnoses: The differential diagnosis associated with the presentation includes SI/depression/anxiety Lab Data 04/13/24 12:26 04/13/24 12:26 Labs: Lab Results 04/13/24 04/13/24 Range/Units 12:22 12:26 WBC 7.8 (4.8-10.8) X10*3/uL RBC 4.61 (4.20-5.50) X10*6/uL Hgb 12.3 (12.0-16.0) g/dl Hct 37.0 (37.0-47.0) % MCV 80.3 (80.0-98.0) fL MCH 26.7 L (27.0-33.0) pg MCHC 33.2 (31.0-35.0) g/dl RDW 16.4 H (11.0-16.0) % Plt Count 267 (160-400) X10*3/uL MPV 9.5 (9.4-12.3) fL Immature Gran % (Auto) 0.4 (0.0-0.4) % Neut % (Auto) 65.3 (45-73) % Lymph % (Auto) 27.1 (20-40) % [place] % (Auto) 5.4 (2-11) % Eos % (Auto) 1.3 (0-4) % Baso % (Auto) 0.5 (0-2) % Lymph # (Auto) 2.1 (1.2-4.9) X10*3/uL [place] # (Auto) 0.4 (0.1-1.2) X10*3/uL Eos # (Auto) 0.1 (0.0-0.4) X10*3/uL Baso # (Auto) 0.0 (0.0-0.2) X10*3/uL Abs Immat Gran (auto) 0.03 (0.00-0.03) X10*3/uL Absolute Neuts (auto) 5.1 (2.0-8.3) x10*3/uL Absolute Nucleated RBC 0.000 (0.0-0.012) X10*3/uL Nucleated RBC % (auto) 0.0 (0.0-0.2) /100WBC Sodium 139 (135-145) mmol/L Potassium 3.6 (3.3-5.1) mmol/L Chloride 110 H (96-108) mmol/L Carbon Dioxide 19 L (22-29) mmol/L Anion Gap 14 (12-20) BUN 16 (9-16) mg/dL Creatinine 0.71 (0.5-1.4) mg/dL Estim Creat Clear Calc 122.8 Estimated GFR > 60 Random Glucose 153 H (60-115) mg/dL Calcium 8.8 (8.4-10.2) mg/dL Total Bilirubin 0.2 (0.0-1.0) mg/dL AST 43 H (5-31) U/L ALT 32 H (0-31) U/L Alkaline Phosphatase 57 (39-117) U/L Total Protein 7.5 (6.5-8.0) g/dL Albumin 4.2 (3.5-5.0) g/dL Urine Color Yellow Urine Appearance Cloudy Urine pH 5.5 (5.0-9.0) Ur Specific [place] 1.025 (1.005-1.025) Urine Protein Trace (Neg-Trace) mg/dL Urine Glucose (UA) Negative (Negative) mg/dL Urine Ketones Negative (Negative) mg/dL Urine Blood Moderate (2+) H (Negative) Urine Nitrite Negative (Negative) Ur Leukocyte Esterase Moderate (2+) H (Negative) Urine RBC 3-5 H (0-2) /HPF Urine WBC >50 H (0-5) /HPF Ur Squamous Epith Cells 11-20 (0-2) /HPF Urine Bacteria 3+ (None Seen) Hyaline Casts 0-2 (0-2) /LPF Urine Test NEGATIVE (NEGATIVE) Salicylates < 5.0 L (15-30) mg/dL Urine Opiates Screen Not Detected (Not Detect) Ur Buprenorphine Scrn Not Detected (Not Detect) ng/mL Ur Oxycodone Screen Not Detected (Not Detect) ng/mL Urine Methadone Screen Not Detected (Not Detect) ng/mL Urine Fentanyl Screen Not Detected (Not Detect) Ur Barbiturates Screen Not Detected (Not Detect) Ur Phencyclidine Scrn Not Detected (Not Detect) Ur Amphetamines Screen Not Detected (Not Detect) U Benzodiazepines Scrn Not Detected (Not Detect) Urine Cocaine Screen POSITIVE H (Not Detect) U Marijuana (THC) Screen Not Detected (Not Detect) Ethyl Alcohol < 10 mg/dL Discharge Plan Discharge Clinical Impression: Depression Qualifiers: Depression Type: major depressive disorder Major depression recurrence: recurrent Active/Remission status: currently active Major depression episode severity: moderate Qualified Code(s): F33.1 - Major depressive disorder, recurrent, moderate Patient Disposition: Still a Patient Prescriptions: No Action haloperidol 5 mg tablet 5 mg BEDTIME quetiapine 200 mg tablet 200 mg PO BEDTIME topiramate 25 mg tablet 25 mg BID lorazepam 2 mg tablet 2 mg PO BID PRN (Reason: anxiety) gabapentin 300 mg capsule 300 mg PO TID albuterol sulfate [Ventolin HFA] 90 mcg/actuation HFA aerosol inhaler 2 puff inhalation Q6H PRN (Reason: wheezing) 30 Days Qty: 1 0RF Interventions: [place]-Suicide Risk Severity Scale Last Done: 04/13/24 12:36 Print Language: Belgian
[2024-04-13 12:36] LABS: MANUAL DIFF FLAG NO
[2024-04-13 12:39] LABS: Basophils Percent Auto 0.5 % (0-2); Eosinophils Absolute Auto 0.1 X10*3/uL (0.0-0.4); Eosinophils Percent Auto 1.3 % (0-4); Hemoglobin 12.3 g/dl (12.0-16.0); Imm Gran Abs Auto 0.03 X10*3/uL (0.00-0.03); Imm Gran Pct Auto 0.4 % (0.0-0.4); Lymphocytes Absolute Auto 2.1 X10*3/uL (1.2-4.9); Lymphocytes Percent Auto 27.1 % (20-40); Mean Corpuscular HGB Conc 33.2 g/dl (31.0-35.0); Mean Corpuscular Hemoglobin 26.7 pg (27.0-33.0); Mean Corpuscular Volume 80.3 fL (80.0-98.0); Mean Platelet Volume 9.5 fL (9.4-12.3); Monocytes Absolute Auto 0.4 X10*3/uL (0.1-1.2); Monocytes Percent Auto 5.4 % (2-11); Neutrophils Absolute Auto 5.1 x10*3/uL (2.0-8.3); Neutrophils Percent Auto 65.3 % (45-73); Platelet Count 267 X10*3/uL (160-400); Red Blood Count 4.61 X10*6/uL (4.20-5.50); Red Cell Distribution Width 16.4 % (11.0-16.0); White Blood Count 7.8 X10*3/uL (4.8-10.8)
[2024-04-13 12:41] LABS: Appearance Urine Cloudy; Color Urine Yellow; Glucose Urine UA Negative (Negative); Leukocyte Esterase Urine Moderate (2+) (Negative); Nitrite Urine Negative (Negative); PH 5.5 (5.0-9.0); Specific Gravity - Urine 1.025 (1.005-1.025); UMIC TRIGGER UA YES; UPreg QC Valid YES; Urine Blood Moderate (2+) (Negative); Urine Ketones Negative (Negative); Urine Pregnancy NEGATIVE (NEGATIVE); Urine Protein Trace mg/dL (Neg-Trace)
--- NOTE | 2024-04-13 12:41 | MHC.EDTECH ---
pt changed over with security. Belongings secured in [place] on floor.
[2024-04-13 12:54] LABS: Amphetamine Screen Urine Not Detected (Not Detect); Barbiturates, Urine Not Detected (Not Detect); Benzodiazepines Screen Urine Not Detected (Not Detect); Buprenorphine Scr Not Detected (Not Detect); Cannabinoid Screen Urine Not Detected (Not Detect); Cocaine Screen Urine POSITIVE (Not Detect); Fentanyl, urine Not Detected (Not Detect); Methadone Screen, Urine Not Detected (Not Detect); Opiate Screen Urine Not Detected (Not Detect); Oxycodone Screen Urine Not Detected (Not Detect); Phencyclidine Screen Urine Not Detected (Not Detect)
[2024-04-13 12:56] LABS: Bacteria Urine 3+ (None Seen); Hyaline Casts Urine 0-2 /LPF (0-2); WBC Urine >50 /HPF (0-5)
[2024-04-13 12:58] LABS: Alanine Aminotransferase 32 U/L (0-31); Albumin Level 4.2 g/dL (3.5-5.0); Alkaline Phosphatase 57 U/L (39-117); Anion Gap 14 (12-20); Aspartate Amino Transferase 43 U/L (5-31); Bilirubin Total 0.2 mg/dL (0.0-1.0); Blood Urea Nitrogen 16 mg/dL (9-16); Calcium 8.8 mg/dL (8.4-10.2); Carbon Dioxide 19 mmol/L (22-29); Chloride 110 mmol/L (96-108); Creatinine Clr Calc Pharmacy 122.8; Estimated Glomerular Filt Rate > 60; Ethanol < 10 mg/dL; Glucose Random 153 mg/dL (60-115); Potassium 3.6 mmol/L (3.3-5.1); Sodium 139 mmol/L (135-145); Total Protein 7.5 g/dL (6.5-8.0)
[2024-04-13 12:59] LABS: Salicylate < 5.0 mg/dL (15-30)
--- OUTSIDE RECORDS SUMMARY | 2024-04-13 14:33 | XMS_ITS | Encounter Summary ---
Author Organization [employer] Address [address] [facility] [address] [place] [address] Care Team Providers Care Cavity Pump Operator Name Role Phone Preeti Holland Unavailable Unavailable Edwige Chang MD Primary Care Provider [phone] Juana Huggins Unavailable Unavailable Reason for Visit * Reason Onset Date Comments pt1 03/24/2024 Encounter Details Date Type Department Care Team (Late st Contact Info) Description 03/24/2024 Telephone [facility] MEDICAL [address] [place] [address] Edwige Chang MD [address] [place] [address] pt1 Social History Tobacco Use Types Packs/Day Years Used Date Smoking Tobacco: Former Cigarettes Alcohol Use Standard Drinks/Week Comments Not Currently 0 (1 standard drink = 0.6 oz pur e alcohol) Depression Answer Date Recorded Patient Health Questionnaire-9 Score 16 06/28/2023 Patient Health Questionnaire-9 Score 16 06/28/2023 Last PHQ-9: Questionnaire Data Not on file 0 06/28/2023 Depression Answer Date Recorded Patient Health Questionnaire-2 Score 1 06/28/2023 Comments No Sex and Gender Information Value Date Recorded Sex Assigned at Female 08/29/2023 6:30 PM EDT Legal Sex Female 6:04 PM EDT Gender Identity Female 08/29/2023 6:30 PM EDT Sexual Orientation Straight 08/29/2023 6: 30 PM EDT documented as of this encounter Miscellaneous Notes * Telephone Encounter - Camila Miller - 03/24/2024 4:12 PM EST Attempted to reach out to patient to confirm address * Telephone Encounter - Fanny Thompson - 03/24/2024 11:11 AM EST PT1 received via mail. Exp. 04/09/2024 Lab Coordinator [facility] Patients address [address] [place] [address] [facility] #[id number] documented in this encounter Plan of Treatment Upcoming Encounters Date Type Department Care Team (Late st Contact Info) Description 04/24/2024 8:20 AM EDT Office Visit Marc [facility] MEDICAL [address] [place] [address] Edwige Chang MD [address] [place] [address] documented as of this encounter Visit Diagnoses Not on filedocumented in this encounter Additional Health Concerns Assessment Noted Time PHQ-9 Depression Total Score: 16 024 10:34 AM EDT documented as of this encounter Care Teams Cavity Pump Operator Relationship Specialty Start Date End Date Edwige Chang MD [address] [place] [address] PCP - General Family Medicine 01/17/22 Preeti Holland FNP Family Medicine 12/08/21 Juana Huggins Health Navigator Case Management 02/06/22 documented as of this encounter
--- OUTSIDE RECORDS SUMMARY | 2024-04-13 14:33 | XMS_ITS | Encounter Summary ---
Author Organization [employer] Address [address] [facility] 7t [place] [address] Care Team Providers Care Multifocal Lens Assembler Name Role Phone Preeti Holland GYMNASTICS COACH Unavailable Unavailable Edwige Chang MD Primary Care Provider [phone] Juana Huggins Unavailable Unavailable Encounter Details Date Type Department Care Team (Late st Contact Info) Description 04/06/2024 Orders Only [facility] [address] [place], [place] [id number] Edwige Chang MD [address] [place] [address] Social History Tobacco Use Types Packs/Day Years [...] PM EDT documented as of this encounter Plan of Treatment Upcoming Encounters Date Type Department Care Team (Late st Contact Info) Description 04/24/2024 8:20 AM EDT Office Visit [facility] [address] [place] [address] Edwige Chang MD [address] [place] [address] documented as of this encounter Procedures Procedure Name Priority Date/Time Associated Diagnosis Comments LIPID PANEL, STANDARD Routine 03/31/2024 4:22 PM EST documented in this encounter Results * Lipid Panel, Standard (03/31/2024 4:22 PM EST) Blood Venous blood specimen / Unknown Edwige Chang MD LAB BLOOD ORDERABLES Final Res ult documented in this encounter Visit Diagnoses Not on filedocumented in this encounter Additional Health Concerns Assessment Noted Time PHQ-9 Depression Total Score: 16 /30/03 024 10:34 AM EDT documented as of this encounter Care Teams Multifocal Lens Assembler Relationship Specialty Start Date End Date Edwige Chang MD [address] [place] [address] PCP - General Family Medicine 01/17/22 Preeti Holland FNP Family Medicine 12/08/21 Juana Huggins Health Navigator Case Management 02/06/22 documented as of this encounter
--- OUTSIDE RECORDS SUMMARY | 2024-04-13 14:34 | XMS_ITS | Encounter Summary ---
Author Organization [employer] [facility] Address [address] [place] [address] [address] [place] [address] Care Team Providers Care Tyre Fitter Name Role Phone Preeti Holland Primary Care Provider Unavailab Preeti Alvarado Unavailable Unavailable Edwige Chang MD Primary Care Provider [phone] Juana Huggins Unavailable Unavailable Encounter Details Date Type Department Care Team (Latest Contact Info) Description 07/19/2021 Abstract [facility] CONVERSIONS Dental, Provider, DDS Social History Tobacco Use Types Packs/Day Years Used Date Smoking Tobacco: Never Assessed Comments Unknown Sex and Gender Information Value Date Recorded Sex Assigned at Female 08/29/2023 6:30 PM EDT Legal Sex Female 6:04 PM EDT Gender Identity Female 08/29/2023 6:30 PM EDT Sexual Orientation Straight 08/29/2023 6: 30 PM EDT documented as of this encounter Plan of Treatment Upcoming Encounters Date Type Department Care Team (Late st Contact Info) Description 04/24/2024 8:20 AM EDT Office Visit Marc [facility] MED[facility] [address] [place] [address] Edwige Chang MD [address] [place] [address] documented as of this encounter Visit Diagnoses Not on filedocumented in this encounter Care Teams Tyre Fitter Relationship Specialty Start Date End Date Preeti Holland FNP PCP - General Family Medicine 12/08/21 01/16/22 Edwige Chang MD [address] [place] [address] PCP - General Family Medicine 01/17/22 Preeti Holland FNP Family Medicine 12/08/21 Juana Huggins Health Navigator Case Management 02/06/22 documented as of this encounter
--- OUTSIDE RECORDS SUMMARY | 2024-04-13 14:34 | XMS_ITS | Encounter Summary ---
Author Organization [employer] Address [address] [facility] 7t [place] [address] Care Team Providers Care Manager Trade Name Role Phone Preeti Holland Unavailable Unavailable Edwige Chang MD Primary Care Provider [phone] Juana Huggins Unavailable Unavailable Encounter Details Date Type Department Care Team (Late st Contact Info) Description 09/05/2023 Telephone [facility] MEDICAL [address] [place] [address] Eladia Muhammad, RN Social History Tobacco Use Types Packs/Day Years [...] Patient Health Questionnaire-2 Score 1 06/28/2023 Comments Unknown Sex and Gender Information Value Date Recorded Sex Assigned at Female 08/29/2023 6:30 PM EDT Legal Sex Female 6:04 PM EDT Gender Identity Female 08/29/2023 6:30 PM EDT Sexual Orientation Straight 08/29/2023 6: 30 PM EDT documented as of this encounter Miscellaneous Notes * Telephone Encounter - Eladia Muhammad RN - 09/05/2023 12:42 PM EDT Received a call from Ginny at [facility] pt has an upcoming appt. There was a question about the pt's last name. Last name was dahlia Chi and now constantin? Call was disconnected, don't have a call back number. documented in this encounter Plan of Treatment Upcoming Encounters Date Type Department Care Team (Late st Contact Info) Description 04/24/2024 8:20 AM EDT Office Visit Marc [facility] [address] [facility] [place] [address] Edwige Chang MD [address] [place] [address] documented as of this encounter Visit Diagnoses Not on filedocumented in this encounter Additional Health Concerns Assessment Noted Time PHQ-9 Depression Total Score: 16 024 10:34 AM EDT documented as of this encounter Care Teams Manager Trade Relationship Specialty Start Date End Date Edwige Chang MD [address] [place] [address] PCP - General Family Medicine 01/17/22 Preeti Holland FNP Family Medicine 12/08/21 Juana Huggins Health Navigator Case Management 02/06/22 documented as of this encounter
--- OUTSIDE RECORDS SUMMARY | 2024-04-13 14:34 | XMS_ITS | Encounter Summary ---
Author Organization [employer] [facility] Address [address] [place] [address] 7[address] [place] [address] Care Team Providers Care Recycling Or Rubbish Collector Name Role Phone HollandPreeti ADULT DAYCARE COORDINATOR Unavailable Unavailable Edwige Chang MD Primary Care Provider [phone] Juana Huggins Unavailable Unavailable Reason for Visit * Reason Comments Med Refill Encounter Details Date Type Department Care Team (Late st Contact Info) Description 02/21/2022 Refill [place] [facility] [address] [place] [address] Edwige Chang MD [address] [place] [address] Medication refill Social History Tobacco Use Types Packs/Day Years [...] Description 04/24/2024 8:20 AM EDT Office Visit [place] [facility] [address] [place] [address] Edwige Chang MD [address] [place] [address] documented as of this encounter Visit Diagnoses Diagnosis Medication refill Issue of repeat prescriptions documented in this encounter Care Teams Recycling Or Rubbish Collector Relationship Specialty Start Date End Date Edwige Chang MD [address] [place] [address] PCP - General Family Medicine 01/17/22 Preeti Holland FNP Family Medicine 12/08/21 Juana Huggins Health Navigator Case Management 02/06/22 documented as of this encounter
--- OUTSIDE RECORDS SUMMARY | 2024-04-13 14:34 | XMS_ITS | Clinical Summary ---
Author Organization [facility] Address [address] [place] [address] Phone Care Team Providers Care Cork Wirer Name Role Phone dEwige Chang MD Primary Care Provider [phone] Allergies No known active allergies Medications fluticasone propion-salmete roL (ADVAIR DISKUS) 500-50 mcg/dose diskus inhaler Inhale 1 puff by mouth 1 (one) time each day. Rinse mouth with water after use to reduce aftertaste and incidence of candidiasis. Do not swallow. Active gabapentin (NEURONTIN) 300 mg capsule Take 1 capsule (300 mg total) by mouth 3 (three) times a day. Active topiramate (TOPAMAX) 25 mg tablet Take 1 tablet (25 mg total) by mouth 2 (two) times a day. Active traZODone (DESYREL) 50 mg tablet Take 1 tablet (50 mg total) by mouth at bedtime. Active QUEtiapine (SEROquel) 200 mg tablet Take 1 tablet (200 mg total) by mouth at bedtime. Active albuterol HFA (PROAIR HFA ; PROVENTIL HFA ; VENTOLIN HFA) 90 mcg/actuation inhaler Inhale 2 puffs by mouth every 6 (six) hours if needed for wheezing or shortness of breath. Active haloperidoL (HALDOL) 5 mg tablet Take 1 tablet (5 mg total) by mouth at bedtime. Active hydrOXYzine pamoate (VISTARIL) 50 mg capsule Take 1 capsule (50 mg total) by mouth every 4 (four) hours if needed for anxiety. Active benztropine (COGENTIN) 1 mg tablet Take 1 tablet (1 mg total) by mouth 2 (two) times a day. Active LORazepam (ATIVAN) 2 mg tablet Take 1 tablet (2 mg total) by mouth every 6 (six) hours if needed for anxiety. Max Daily Amount: 8 mg Active Social History Tobacco Use Types Packs/Day Years Used Date Smoking Tobacco: Never Assessed Comments No Sex and Gender Information Value Date Recorded Sex Assigned at Female 12/24/2023 12:34 PM EST Legal Sex Female 2:07 AM EST Gender Identity Female 12/24/2023 12:34 PM EST Sexual Orientation Choose not to disclose 2023 12:34 PM EST Obstetrics History Last Filed Vital Signs Vital Sign Reading Time Taken Comments Blood Pressure 115/68 12/26/2023 12:11 PM EST Pulse 88 12/26/2023 12:11 PM EST Temperature 36.6 ??C (97.9 ??F) 12/26/2023 12:[address] Respiratory Rate 18 12/26/2023 12:11 PM EST Oxygen Saturation 98% 12/26/2023 12:11 PM EST Inhaled Oxygen Concentration - - Weight 113 kg (250 lb) 12/24/2023 1:03 PM EST Height 167.6 cm (5' 6 ) 12/24/2023 1:03 PM EST Body Mass Index 40.35 12/24/2023 1:03 PM EST Plan of Treatment Health Maintenance Due Date Last Done Comments Diabetes: Annual Foot Exam 1994 Diabetes: Annual Retina Eye Exam 1994 Hepatitis A Vaccines (1 of 2 - Risk 2-dose series) 07/02/2003 Hepatitis B Vaccines (1 of 3 - 19+ 3-dose series) 07/02/2003 Pneumococcal Vaccine: Pediatrics (0 to 5 Years) and At-Risk Patients (6 to 64 Years) (1 of 2 - PCV) 07/02/2003 Cervical Cancer Screening: Pap Smear 2005 Social Influencers of Health Screening 01/14/2022 COVID-19 Vaccine ( season) 2023 04/14/2020, 03/14/2020 Influenza Vaccine (#1) 2023 12/01/2010 Diabetes: Annual Urine Albumin-Creatinine Ratio (uACR) 12/24/2023 Diabetes: Blood Sugar Control Test (HGBA1C) 12/24/2023 Depression Screening 06/27/2024 06/28/2023 Diabetes: Annual GFR (Glomerular Filtration Rate) 12/23/2024 12/24/2023, 07/27/2022, 07/22/2022, Additional history exists Cholesterol Screening (Lipid Panel) 07/19/2026 07/19/2021 DTaP,Tdap,and Td Vaccines (2 - Td or Tdap) 02/24/2030 02/25/2020 Hepatitis C Screening Completed 01/30/2021 HIV Screening Completed 10/31/2021 HIB Vaccines Aged Out No longer eligi ble based on patient's age to complete this topic HPV Vaccines Aged Out No longer eligi ble based on patient's age to complete this topic IPV Vaccines Aged Out No longer eligi ble based on patient's age to complete this topic MMR Vaccines Aged Out No longer eligi ble based on patient's age to complete this topic Meningococcal ACWY Vaccine Aged Out N o longer eligible based on patient's age to complete this topic Meningococcal B Vacine Aged Out No lo nger eligible based on patient's age to complete this topic RSV Immunization Patients Under 20 months Aged Out No longer eligible based on patient's age to complete this topic Varicella Vaccines Aged Out No longer eligible based on patient's age to complete this topic Procedures Procedure Name Priority Date/Time Associated Diagnosis Comments COMPREHENSIVE METABOLIC PANEL STAT 12/24/2023 1:21 PM EST from Last 3 Months or Most Recently Relevant to Health Maintenance Results * (ABNORMAL) Comprehensive metabolic panel (12/24/2023 1:21 PM EST) Sodium 138 133 - 145 mmol/L LAB CHEMISTRY METHOD 12/24/2023 2:15 PM EST [facility] Potassium 3.9 3.5 - 5.5 mmol/L LAB CHEMISTRY METHOD 12/24/2023 2:15 PM EST [facility] Chloride 105 96 - 110 mmol/L LAB CHEMISTRY METHOD 12/24/2023 2:15 PM EST [facility] CO2 24 21 - 32 mmol/L LAB CHEMISTRY METHOD 12/24/2023 2:15 PM EST [facility] Anion Gap 9 3 - 11 LAB CHEMISTRY METHOD 12/24/2023 2:15 PM [facility] Glucose 111(H) 70 - 100 mg/dL LAB CHEMISTRY METHOD 12/24/2023 2:15 PM [facility] BUN 13 5 - 25 mg/dL LAB CHEMISTRY METHOD 12/24/2023 2:15 PM [facility] Creatinine 0.81 0.50 - 1.10 mg/dL LAB CHEMISTRY METHOD 12/24/2023 2:15 PM [facility] eGFR 95 >=60 mL/min/1. 73m2 LAB CHEMISTRY METHOD 12/24/2023 2:15 PM [facility] Comment:Calculation based on the??Chronic Kidney Disease Epidemiology Collaboration (CKD-EPI) equation refit??without adjustment for race. BUN/Creatinine Ratio 16.0 LAB CHEMISTRY METHOD 12/24/2023 2:15 PM [facility] Calcium 10.1 8.5 - 10.5 mg/dL LAB CHEMISTRY METHOD 12/24/2023 2:15 PM [facility] AST (SGOT) 20 10 - 42 unit/L LAB CHEMISTRY METHOD 12/24/2023 2:15 PM [facility] ALT (SGPT) 25 10 - 60 unit/L LAB CHEMISTRY METHOD 12/24/2023 2:15 PM [facility] Alkaline Phosphatase 79 42 - 121 unit/L LAB CHEMISTRY METHOD 12/24/2023 2:15 PM [facility] Total Protein 7.8 6.0 - 8.0 g/dL LAB CHEMISTRY METHOD 12/24/2023 2:15 PM [facility] Albumin 4.2 3.2 - 5.0 g/dL LAB CHEMISTRY METHOD 12/24/2023 2:15 PM [facility] Total Bilirubin 0.4 0.0 - 1.4 mg/dL LAB CHEMISTRY METHOD 12/24/2023 2:15 PM EST [facility] Blood Venous blood specimen / Unknown Venipuncture / Unknown 12/24/2023 1:21 PM EST 12/24/2023 1:43 PM EST us Francis Cheung DO LAB BLOOD ORDERABLES Final Result [facility] [address] [place] [address], from Last 3 Months or Most Recently Relevant to Health Maintenance Insurance MEDICAID - [place] Care Teams Cork Wirer Relationship Specialty Start Date End Date Edwige Chang MD [address] [place], [place] PCP - General Family Medicine 12/24/23
--- OUTSIDE RECORDS SUMMARY | 2024-04-13 14:34 | XMS_ITS | Clinical Summary ---
Author Organization [employer] Address [address] [place] [address] Care Team Providers Care Slope Hoist Operator Name Role Phone Preeti Holland Unavailable Unavailable Edwige Chang MD Primary Care Provider [phone] Juana Huggins Unavailable Unavailable Allergies Active Allergy Reactions Criticality Noted Date Comments Bee Pollen 06/28/2023 hives Dog Epithelium 06/28/2023 Pollen Extract 06/28/2023 hives Medications * This document contains information received from the source organization and may not represent a complete record from that organization. nicotine polacrilex (Nicorette) 4 MG gum Chew 1 each (4 mg) every 2 (two) hours if needed for smoking cessation. Fruit Flavor please 100 each 2 03/18/2023 Active Multiple Vitamin (Multi-Vitamin) tablet Take 1 tablet by mouth Once per day. Active QUEtiapine (SEROquel) 200 MG tabletIndicatio ns:Bipolar affective disorder, current episode manic with psychotic symptoms (CMS/HCC),Insom anabel due to other mental disorder Take 1 tablet (200 mg) by mouth at bedtime. 30 tablet 5 11/15/2023 05/14/19 25 Active Ventolin HFA 108 (90 Base) MCG/ACT inhalerIndicati ons:Cocaine use disorder, mild, in early remission (CMS/HCC) Inhale 2 puffs every 6 (six) hours if needed for wheezing. 18 g 11 11/15/2023 11/15/19 25 Active gabapentin (Neurontin) 300 MG capsuleIndicati ons:Bipolar affective disorder, current episode manic with psychotic symptoms (CMS/HCC) Take 1 capsule (300 mg) by mouth 3 times daily. 90 capsule 11/15/2023 05/14/19 25 Active LORazepam (Ativan) 2 MG tabletIndicatio ns:Bipolar affective disorder, current episode manic with psychotic symptoms (CMS/HCC) Take 1 tablet (2 mg) by mouth if needed in the morning, at noon, and at bedtime for anxiety for up to 14 days. 42 tablet 01/21/2024 Active topiramate (Topamax) 25 MG tabletIndicatio ns:Bipolar affective disorder, current episode manic with psychotic symptoms (CMS/HCC) Take 1 tablet (25 mg) by mouth 2 times daily for 14 days. 28 tablet 01/21/2024 Active amoxicillin (Amoxil) 500 MG capsule Take 1 capsule (500 mg) by mouth every 8 (eight) hours for 14 days. 42 capsule 03/05/2024 03/19/19 25 acetaminophen (Tylenol) 500 MG tablet Take 1 tablet (500 mg) by mouth every 6 (six) hours if needed for mild pain for up to 20 days. 20 tablet 03/05/2024 03/25/19 25 Active Problems Problem Noted Date Diagnosed Date Allergic rhinitis 11/18/2023 Amenorrhea 11/18/2023 Facial swelling 11/18/2023 Severe obesity (BMI 35.0-39.9) with comorbidity 11/18/2023 Tinea pedis 11/18/2023 Wheezing 11/18/2023 Post traumatic stress disorder (PTSD) 11/18/2023 Hyperlipidemia 11/18/2023 Major depression 11/18/2023 Tobacco dependence 11/18/2023 Sheltered homelessness 11/15/2023 Suicidal ideation 09/17/2023 Disease due to severe acute respiratory syndrome coronavirus 2 (SARS-CoV-2) 06/14/2023 Overview (11/18/2023): Problem added by Discern Expert Insomnia due to other mental disorder 12/02/2022 Restless legs 12/02/2022 Extreme poverty 11/05/2022 Catatonia 09/14/2022 Urinary symptom or sign 09/07/2022 Delirium 08/16/2022 Homelessness 08/06/2022 Anorexia 07/26/2022 Anxiety 04/10/2022 Cocaine abuse in remission 04/10/2022 Assessment & Plan (06/04/2022 9:15 AM EDT): Clean since Jan 13. 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 I cannot follow her train of thought. Recent hospitalization. Has 3 children, grown, no custody. Partner has 2 kids, no custody. Wants to have her BTL reversed. Makes statements like I got at [employer] . I tried to give 2 weeks notice, but they wanted it in writing, but I didn't have a pen. . Jumps from subject to subject. Increasing olanzapine. Type II or unspecified type diabetes mellitus with renal manifestations, uncontrolled(250.42) 04/11/2021 Schizoaffective disorder, depressive type 2021 Pre-diabetes 03/30/2021 Primary insomnia 03/30/2021 Mild intermittent asthma 08/31/2019 Opioid dependence in remission 08/31/2019 Assessment & Plan (06/04/2022 9:15 AM EDT): Reports being clean since Jan 13. Recurrent major depressive disorder, in remissio n 08/31/2019 Tobacco dependence syndrome 08/31/2019 Resolved Problems Problem Noted Date Diagnosed Date Resolved Date Bipolar disorder, curr episo de mixed, severe, w/o psychotic features 04/10/2022 06/04/2022 Complex posttraumatic stress disorder 08/31/2019 06/04/2022 Encounters Date Type Department Care Team Description 04/06/2024 Orders Only [facility] Information Management [address] [place] [address] Edwige Chang MD 03/24/[address] [address] Edwige Chang MD pt1 03/05/2024 11:30 AM EST Office Visit [facility] [address] [place] [address] Harvey Vazquez Non-restorable tooth (Primary Dx) 03/04/2024 Telephone [facility] Information Management [address] [place] [phone] Edwige Chang MD Hospital Follow-up 02/24/[address] [address] Edwige Chang MD 02/24/2024 Telephone [facility] Information Management [address] [place] [phone] Edwige Chang MD [facility] FU, unable to reach pt 01/29/[address] [address] Ediwge Chang MD Bipolar affective disorder, current episode manic with psychotic symptoms (CMS/HCC) 01/28/2024 Telephone [facility] Information Management [address] [place] [phone] Edwige Chang MD 01/17/[address] [address] Edwige Chang MD Bipolar affective disorder, current episode manic with psychotic symptoms (CMS/HCC); Insomnia due to other mental disorder from Last 3 Months Immunizations Name Administration Dates Next Due Influenza, IIV3, injectable 12/01/2010 Moderna Covid-19 Vaccine 12+ 04/14/2020,03/14/19 21 Family History Medical History Relation Name Comments Diabetes Mother Relation Name Status Comments Mother Alive Social History Tobacco Use Types Packs/Day Years Used Date Smoking Tobacco: Former Cigarettes Tobacco Cessation:Counseling Given: Not Answered Alcohol Use Standard Drinks/Week Comments Not Currently [...] Orientation Straight 08/29/2023 6: 30 PM EDT Last Filed Vital Signs Vital Sign Reading Time Taken Comments Blood Pressure 124/87 11/15/2023 11:12 AM EDT Pulse 93 11/15/2023 11:12 AM EDT Temperature 36.3 ??C (97.4 ??F) 11/15/2023 11:12 AM E DT Respiratory Rate 18 11/15/2023 11:12 AM EDT Oxygen Saturation 98% 11/15/2023 11:12 AM EDT Inhaled Oxygen Concentration - - Weight 93.4 kg (206 lb) 11/15/2023 11:12 AM EDT Height 168.9 cm (5' 6.5 ) 06/28/2023 10:26 AM ED T Body Mass Index 32.75 06/28/2023 10:26 AM EDT Plan of Treatment Upcoming Encounters Date Type Department Care Team (Late st Contact Info) Description 04/24/2024 8:20 AM EDT Office Visit [facility] [address] [place] [address] Edwige Chang MD [address] [place] [address] Health Maintenance Due Date Last Done Comments SDOH Screening 1984 Alcohol/Substance Use Screening 1996 Family Planning (PISQ) 07/02/1999 Hepatitis A Vaccines (1 of 2 - Risk 2-dose series) 07/02/2003 Hepatitis B Vaccines (1 of 3 - 19+ 3-dose series) 07/02/2003 Pneumococcal Vaccine: Pediatrics (0 to 5 Years) and At-Risk Patients (6 to 49) Years) (1 of 2 - PCV) 07/02/2003 Pap Smear 2005 Cervical Cancer Screening 2014 HPV/Cotest 2014 Dental Oral Exam 01/19/2022 07/19/2021 Dental Prophylaxis 01/19/2022 07/19/2021, 02/08/2021 COVID-19 Vaccine (4 - 2023-2 5 season) 2023 05/09/2022, 04/14/2020, 03/14/2020 Depression Monitoring (PHQ-9) 12/29/2023, 06/28/2023 Dental X-Ray: Full Mouth 02/10/2024 02/08/2021 Depression Screening 06/27/2024 06/28/2023, 06/28/2023 Dental X-Ray: Bitewings 11/11/2024 11/11/19 24, 02/08/2021 Diabetes: Hemoglobin A1C 02/21/2025 025, 08/30/2021, 07/19/2021 Tobacco Screening 03/05/2025 03/05/2024 Lipid Panel 03/31/2029 03/31/2024, 07/19/2021 DTaP/Tdap/Td Vaccines (2 - T d or Tdap) 02/24/2030 02/25/2020 Zoster Vaccines (1 of 2) 2034 RSV Patients and Patients Aged 60 years or older (1 - 1-dose 75+ series) 07/02/2059 HIV Screening Completed 10/31/2021, 07/19/2021 Hepatitis C Screening Completed 10/31/2021 Influenza Vaccine Completed 03/03/2024, 12/14/2023, 12/01/2010 HIB Vaccines Aged Out No longer eligi ble based on patient's age to complete this topic HPV Vaccines Aged Out No longer eligi ble based on patient's age to complete this topic IPV Vaccines Aged Out No longer eligi ble based on patient's age to complete this topic Meningococcal Vaccine Aged Out No lovely scott eligible based on patient's age to complete this topic RSV under 20 months Aged Out No longe r eligible based on patient's age to complete this topic Rotavirus Vaccines Aged Out No longer eligible based on patient's age to complete this topic Procedures Procedure Name Priority Date/Time Associated Diagnosis Comments LIPID PANEL, STANDARD Routine 03/31/2024 4:22 PM EST CASE PRESENTATION, DETAILED AND EXTENSIVE TREATMENT PLANNING Routine 03/05/2024 11:30 AM EST 12 EXTRACTION, ERUPTED TOOTH OR EXPOSED ROOT (ELEVATION/FORCEPS REMOVAL) Routine 03/05/2024 11:30 AM EST BITEWINGS - 2 RADIOGRAPHIC IMAGES Routine 11/11/2023 1:00 PM EDT [facility] HISTORICAL HEPATITIS C AB W/REFL TO HCV RNA, QN, PCR Routine 10/31/2021 10:50 AM EDT HIV 1/2 ANTIGEN/ANTIBODY, FOURTH GENERATION W/RFL Routine 10/31/2021 10:50 AM EDT [facility] HISTORICAL HEMOGLOBIN A1C W/EST GLUCOSE Routine 07/19/2021 2:11 PM EDT PROPHYLAXIS - ADULT Routine 07/19/2021 1 2:00 AM EDT COMPREHENSIVE ORAL EVALUATION - NEW OR ESTABLISHED PATIENT Routine 07/19/2021 12:00 AM EDT INTRAORAL - COMPLETE SERIES OF RADIOGRAPHIC IMAGES Routine 02/08/2021 12:00 AM EST from Last 3 Months or Most Recently Relevant to Health Maintenance Results * Lipid Panel, Standard (03/31/2024 4:22 PM EST) Blood Venous blood specimen / Unknown us Edwige Chang MD LAB BLOOD ORDERABLES Final Res ult * HEPATITIS C AB W/REFL TO HCV RNA, QN, PCR (10/31/2021 10:50 AM EDT) HEPATITIS C ANTIBODY NON-REACT LAMINE NON-REACT LAMINE [facility] INDEX 0.06 <1.00 [facility] Comment: ?? HCV antibody was non-reactive. There is no laboratory ?? evidence of HCV infection. ?? In most cases, no further action is required. However, if recent HCV exposure is suspected, a test for HCV RNA (test code 61870) is suggested. ?? For additional information please refer to http://education.Viewdle/faq/VSW27n3 (This link is being provided for informational/ educational purposes only.) ?? 10/31/2021 10:5 0 AM EDT Levar Herrera MD HISTORICAL/NON ORDERABLE LABS Final Result Performing Organization Address [facility] de Phone Number [facility] [address] * HIV 1/2 ANTIGEN/ANTIBODY,FOURTH GENERATION W/RFL (10/31/2021 10:50 AM EDT) HIV-1/2 ANTIGEN AND ANTIBODIES, 4TH GENERATION W/ REFLEX NON-REACT LAMINE NON-REACT LAMINE [facility] Comment: HIV-1 antigen and HIV-1/HIV-2 antibodies were not detected. There is no laboratory evidence of HIV infection. ?? PLEASE NOTE: This information has been disclosed to you from records whose confidentiality may be protected by state law. ??If your state requires such protection, then the state law prohibits you from making any further disclosure of the information without the specific written consent of the person to whom it pertains, or as otherwise permitted by law. A general authorization for the release of medical or other information is NOT sufficient for this purpose. ? For additional information please refer to http://education.Viewdle/faq/CYY309 (This link is being provided for informational/ educational purposes only.) ? The performance of this assay has not been clinically validated in patients less than 2 years old. ?? 10/31/2021 10:5 0 AM EDT Levar Herrera MD LAB BLOOD ORDERABLES Final Res ult Performing Organization Address [facility] de Phone Number [facility] [address] from Last 3 Months or Most Recently Relevant to Health Maintenance Insurance [employer] C3 [facility] MEDICAID STAND ADULT Care Teams Slope Hoist Operator Relationship Specialty Start Date End Date Edwige Chang MD [address] [place] [id number] PCP - General Family Medicine 01/17/22 Preeti Holland FNP Family Medicine 12/08/21 Juana Huggins Health Navigator Case Management 02/06/22
--- OUTSIDE RECORDS SUMMARY | 2024-04-13 14:34 | XMS_ITS | Encounter Summary ---
Author Organization [employer] Address [address] [facility] [address] [place] [address] Care Team Providers Care Social Sciences Research Scientist Name Role Phone Adi Hollandhel [place] Unavailable Unavailable Edwige Chang MD Primary Care Provider [phone] Juana Huggins Unavailable Unavailable Encounter Details Date Type Department Care Team (Late st Contact Info) Description 02/24/2024 Telephone [facility] MEDICAL [address] [place] [address] Edwige Chang MD [address] [place] [address] Social History Tobacco Use Types Packs/Day Years [...] encounter Miscellaneous Notes * Telephone Encounter - Deepthi Telles - 02/24/2024 12:08 PM EST [facility] called regarding patient. Patient was admitted the the behavior health unit on 02/20. documented in this encounter Plan of Treatment Upcoming Encounters Date Type Department Care Team (Late st Contact Info) Description 04/24/2024 8:20 AM EDT Office Visit [facility] MED[facility] [address] [place] [address] Edwige Chang MD [address] [place] [address] documented as of this encounter Visit Diagnoses Not on filedocumented in this encounter Additional Health Concerns Assessment Noted Time PHQ-9 Depression Total Score: 16 024 10:34 AM EDT documented as of this encounter Care Teams Social Sciences Research Scientist Relationship Specialty Start Date End Date Edwige Chang MD [address] [place] [address] PCP - General Family Medicine 01/17/22 Preeti Holland FNP Family Medicine 12/08/21 Juana Huggins Health Navigator Case Management 02/06/22 documented as of this encounter
--- OUTSIDE RECORDS SUMMARY | 2024-04-13 14:34 | XMS_ITS | Encounter Summary ---
Author Organization [employer] Address [address] [facility] [address] [place] [address] Care Team Providers Care Castings Drafter Name Role Phone Preeti Holland PEACE OFFICER Unavailable Unavailable Edwige Chang MD Primary Care Provider [phone] Juana Huggins Unavailable Unavailable Encounter Details Date Type Department Care Team (Late st Contact Info) Description 09/16/2023 Orders Only [facility] Information Management [address] [place] [address] Edwige Chang MD [address] [place] [address] Social History Tobacco Use Types Packs/Day Years [...] Description 04/24/2024 8:20 AM EDT Office Visit [facility] [address] [place] [address] Edwige Chang MD [address] [place] [address] documented as of this encounter Procedures Procedure Name Priority Date/Time Associated Diagnosis Comments CT HEAD WO CONTRAST Routine 09/08/2023 3:[address] CERVICAL SPINE WO CONTRAST Routine 09/08/2023 3:10 PM EDT documented in this encounter Results * CT HEAD WO CONTRAST (09/08/2023 3:11 PM EDT) Anatomical Region Laterality Modality Computed Tomogra phy Edwige Chang MD IM CT PROCEDURES Final Result * CT Cervical Spine w/o Contrast (09/08/2023 3:10 PM EDT) Anatomical Region Laterality Modality Spine, C-spine Computed Tomogra phy Edwige Chang MD IMG CT PROCEDURES Final Result documented in this encounter Visit Diagnoses Not on filedocumented in this encounter Additional Health Concerns Assessment Noted Time PHQ-9 Depression Total Score: 16 05/ 024 10:34 AM EDT documented as of this encounter Care Teams Castings Drafter Relationship Specialty Start Date End Date Edwige Chang MD [address] [place] [address] PCP - General Family Medicine 01/17/22 Preeti Holland FNP Family Medicine 12/08/21 Juana Huggins Health Navigator Case Management 02/06/22 documented as of this encounter
--- OUTSIDE RECORDS SUMMARY | 2024-04-13 14:34 | XMS_ITS | Encounter Summary ---
Author Organization [employer] Address [address] [facility] [address] [place] [address] Care Team Providers Care Monitor Worker Name Role Phone Amalia Preetistephanie HENRIQUEZ Unavailable Unavailable Edwige Chang MD Primary Care Provider [phone] Juana Huggins Unavailable Unavailable Reason for Visit * Reason Onset Date Comments medication 12/22/2022 Encounter Details Date Type Department Care Team (Late st Contact Info) Description 12/22/2022 Telephone [facility] [address] [place] [address] Edwige Chang MD [address] [place] [address] medication Social History Tobacco Use Types Packs/Day Years Used Date Smoking Tobacco: Former Cigarettes Alcohol Use Standard Drinks/Week Comments Not Currently 0 (1 standard drink = 0.6 oz pur e alcohol) Comments Unknown Sex and Gender Information Value Date Recorded Sex Assigned at Female 08/29/2023 6:30 PM EDT Legal Sex Female 6:04 PM EDT Gender Identity Female 08/29/2023 6:30 PM EDT Sexual Orientation Straight 08/29/2023 6: 30 PM EDT documented as of this encounter Miscellaneous Notes * Telephone Encounter - Riana Simmons - 12/24/2022 9:10 AM EST Please advise * Telephone Encounter - Jacque Wheatley - 12/22/2022 9:57 AM EST Patient left [facility] marketing information manager center that she was due to get a months worth of Ativan and only got 14 days worth. Please advise. documented in this encounter Plan of Treatment Upcoming Encounters Date Type Department Care Team (Late st Contact Info) Description 04/24/2024 8:20 AM EDT Office Visit [facility] [address] [place] [address] Edwige Chang MD [address] [place] [address] documented as of this encounter Visit Diagnoses Not on filedocumented in this encounter Care Teams Monitor Worker Relationship Specialty Start Date End Date Edwige Chang MD [address] [place] [address] PCP - General Family Medicine 01/17/22 Preeti Holland FNP Family Medicine 12/08/21 Juana Huggins Health Navigator Case Management 02/06/22 documented as of this encounter
[2024-04-13 15:47] VITALS: BP 114/63; PULSE 97; RESP 14; TEMP 36.9; O2SAT 98
--- NOTE | 2024-04-13 16:18 | MHC.CARE ---
Patient evaluated by the CARE Team, recommended disposition is dual diagnosis inpatient treatment. ED provider Dr. Gonsalez updated and in agreement with plan.
[2024-04-13 18:29] VITALS: BP 98/61; PULSE 94; RESP 18; TEMP 37.2; O2SAT 98
--- NOTE | 2024-04-13 22:41 | PC.NURSE ---
PT brought over from main ED. PT does not know what medications she takes. Pharmacy already aware, TW requested their assistance again. PT retail pharmacy is closed.
--- NOTE | 2024-04-13 23:01 | PC.NURSE ---
patient appears to remain at rest presently respirations are even and unlabored
[2024-04-14 06:20] VITALS: BP 102/67; PULSE 88; RESP 17; TEMP 37.2; O2SAT 96
--- NOTE | 2024-04-14 09:11 | MHC.CARE ---
She has been accepted to [facility] @ [address] [place] [address], ETA 1pm, accepting provider is Dr. Hummel. Ambulance picking her up here at 12pm, facility notified and they will call to complete the N2N. F25 Schizoaffective D/o Biploar Type F43.10 PTSD F14.20 Cocaine Use D/o
--- NOTE | 2024-04-14 09:55 | PC.NURSE ---
report given to ELVI Barnett at [facility] at this time.
--- NOTE | 2024-04-14 13:48 | PC.NURSE ---
report given to IVAN Henderson. [facility] at [facility] time.
[2024-04-14 13:49] VITALS: BP 102/67; PULSE 88; RESP 17; TEMP 37.2; O2SAT 96
== END 2024-04-14 13:51 ==
PROVIDERS: Physician Assistant Medical; Emergency Provider Emergency Medicine; PCP Family Medicine
DX: F33.1 Major depressive disorder, recurrent, moderate (principal); F25.0 Schizoaffective disorder, bipolar type; F14.90 Cocaine use, unspecified, uncomplicated
CPT/HCPCS: 80053; 80179; 80307; 81001; 81025; 85025; 99285; S9485

== ENCOUNTER 2024-04-26 17:58 | Inpatient (IN) | payer OTHER, SELFPAY ==
--- NOTE | 2024-04-26 | ECG_ITS ---
Test Reason : COCAINE USE Blood Pressure : */* mmHG Vent. Rate : 78 BPM Atrial Rate : 78 BPM P-R Int : 138 ms QRS Dur : 78 ms QT Int : 400 ms P-R-T Axes : 55 63 43 degrees QTcB Int : 456 ms Normal sinus rhythm Normal ECG When compared with ECG of 27-Jan-2024 11:32, No significant change was found Referred By: Mark North Electronically Signed By: Yony Ramos
[2024-04-26 18:09] VITALS: BP 103/80; BP 154/91; PULSE 30; PULSE 83; RESP 28; TEMP 36.9; O2SAT 99; BMI 33.3
--- NOTE | 2024-04-26 18:25 | ED_ITS ---
HPI - General Adult General Chief complaint: Psychiatric Symptoms Stated complaint: crisis,crying Time Seen by Provider: 04/26/24 18:04 Source: patient, RN notes reviewed and old records reviewed Mode of arrival: EMS Limitations: altered mental status History of Present Illness ED Provider: Can AGARWAL narrative: 38-year-old female with past medical history significant for obesity, substance abuse, schizoaffective disorder, PTSD, bipolar disorder presents for evaluation of paranoia Patient was apparently knocking on random doors in the community screaming and yelling that her soul was lost The patient admits to using crack cocaine today The patient does not provide much history and stays silent through most of the evaluation She was able to say that she was not in any physical pain Related Data Home Medications ?Medication ?Instructions ?Recorded ?Confirmed haloperidol 2 mg tablet 6 mg PO BEDTIME 04/14/24 04/14/24 hydroxyzine pamoate 50 mg capsule 50 mg PO Q6H PRN Anxiety 04/14/24 04/14/24 nicotine (polacrilex) 2 mg gum 2 mg Q2H PRN Smoking Cessation 04/14/24 04/14/24 quetiapine 300 mg tablet 300 mg PO BEDTIME 04/14/24 04/14/24 sertraline 25 mg tablet 25 mg PO DAILY 04/14/24 04/14/24 topiramate 50 mg tablet 50 mg PO BID 04/14/24 04/14/24 trazodone 50 mg tablet 50 mg PO BEDTIME PRN insomnia 04/14/24 04/14/24 Previous Rx's ?Medication ?Instructions ?Recorded albuterol sulfate 90 mcg/actuation 2 puff inhalation Q6H PRN wheezing 11/26/23 aerosol inhaler (Ventolin HFA) 30 days #1 inhaler Allergies Allergy/AdvReac Type Severity Reaction Status Date / Time dog dander [DOG DANDER] Allergy Intermediate ITCHY EYES Verified 04/26/24 18:12 pollen extracts [POLLEN] Allergy Intermediate STUFFY, Verified 04/26/24 18:12 ITCHY EYES Pork/Porcine Containing Allergy Itching Verified 04/26/24 18:12 Products Review of Systems Constitutional: Constitutional: Denies body ache(s) and Denies headache(s) ENT: Denies headache(s) Cardiovascular: Cardiovascular: Denies chest pain Gastrointestinal: Gastrointestinal: Denies abdominal pain Musculoskeletal: Musculoskeletal: Denies back pain Neurologic: Denies headache(s) Psychiatric: Psychiatric: Reports anxiety and Reports paranoia [facility] Past Medical History Medical History Generalized abdominal discomfort Medical clearance for psychiatric admission PTSD (post-traumatic stress disorder) Prediabetes Oligomenorrhea Routine medical exam Anxiety Pseudoseizures Opioid use disorder Bipolar 1 disorder, manic, moderate Social History Social History Household Members: None Household Members Other:: says has spouse but unhoused Housing: Homeless Do you presently have visiting nurse or other home services: No Unable to assess alcohol history related to: Unknown Alcohol intake: former Patient Tobacco Use Status: Former Tobacco user Tobacco use type: Cigarette Cigarette Packs Per Day: 1 Cigarettes Per Day: 20.0 Years Smoked: Many' e-Cigarette/Vaping Use: Former Use Second Hand Smoke Exposure: No Use of substances other than those prescribed or required for medical reasons: Yes Substance Use Type: Crack/Cocaine Last Used Substance: Unknown Advance Directives: No Advance Directives Information Provided: Yes Do you have a plan to hurt others: No Plan service: No Sexual orientation: Straight/Heterosexual Physical Exam ED Vital Signs: Vital Signs - 24 hr 04/26/24 18:09 Temperature 98.5 F Pulse Rate 83 Respiratory Rate 28 H Blood Pressure 103/80 Pulse Oximetry 99 BMI result Body Mass Index 33.3 Const General: comfortable, no acute distress, alert and awake Nutritional Appearance: well nourished Orientation/consciousness: patient oriented x3 HENMT Head: Yes normocephalic and Yes atraumatic Eyes Eyelids: Yes eyelids normal Conjunctivae: conjunctivae normal Sclerae: sclerae normal Corneas: corneas normal Pupils: Equal, round and reactive pupils present EOM: EOMs intact bilaterally Neck Neck: Yes full ROM Resp Effort & Inspection: normal respiratory effort, able to speak in complete sentences and not labored Skin General skin exam: elasticity normal Neuro Other: Patient not cooperative with cranial nerve exam General: patient oriented x3 Cranial nerves: Yes Equal, round and reactive pupils present and Yes Bilaterally intact EOM present Extrem Other: Moving all extremities well without any obvious deformities Course Reevaluation(s) Reevaluation #1: Patient is seen with the care team, she will be a follow-up for tomorrow morning Time: 23:42 Medical Decision Making Medical Decision Making MDM Narrative: 38-year-old female presents for evaluation of paranoia and admits to using substances. Plan for medical clearance and likely care team consult. The patient has no signs of trauma, vital signs are stable. Differential Diagnosis Differential Diagnoses: The differential diagnosis associated with the presentation includes Substance abuse Tita Schizoaffective disorder Bipolar disorder Paranoia Lab Data Labs: Lab Results 04/26/24 Range/Units 19:59 Urine Color Yellow Urine Appearance Clear Urine pH 5.5 (5.0-9.0) Ur Specific [place] 1.015 (1.005-1.025) Urine Protein Negative (Neg-Trace) mg/dL Urine Glucose (UA) Negative (Negative) mg/dL Urine Ketones 40 (Negative) mg/dL Urine Blood Trace H (Negative) Urine Nitrite Negative (Negative) Ur Leukocyte Esterase Negative (Negative) Urine RBC 0-2 (0-2) /HPF Urine WBC 0-5 (0-5) /HPF Ur Squamous Epith Cells 6-10 (0-2) /HPF Urine Bacteria None Seen (None Seen) Hyaline Casts 0-2 (0-2) /LPF Urine Test NEGATIVE (NEGATIVE) Urine Opiates Screen Not Detected (Not Detect) Ur Buprenorphine Scrn Not Detected (Not Detect) ng/mL Ur Oxycodone Screen Not Detected (Not Detect) ng/mL Urine Methadone Screen Not Detected (Not Detect) ng/mL Urine Fentanyl Screen Not Detected (Not Detect) Ur Barbiturates Screen Not Detected (Not Detect) Ur Phencyclidine Scrn Not Detected (Not Detect) Ur Amphetamines Screen Not Detected (Not Detect) U Benzodiazepines Scrn Not Detected (Not Detect) Urine Cocaine Screen POSITIVE H (Not Detect) U Marijuana (THC) Screen Not Detected (Not Detect) Discharge Plan Discharge Clinical Impression: Substance abuse Patient Disposition: Still a Patient Prescriptions: No Action albuterol sulfate [Ventolin HFA] 90 mcg/actuation HFA aerosol inhaler 2 puff inhalation Q6H PRN (Reason: wheezing) 30 Days Qty: 1 0RF quetiapine 300 mg tablet 300 mg PO BEDTIME trazodone 50 mg tablet 50 mg PO BEDTIME PRN (Reason: insomnia) nicotine (polacrilex) 2 mg gum 2 mg Q2H PRN (Reason: Smoking Cessation) hydroxyzine pamoate 50 mg capsule 50 mg PO Q6H PRN (Reason: Anxiety) sertraline 25 mg tablet 25 mg PO DAILY haloperidol 2 mg tablet 6 mg PO BEDTIME topiramate 50 mg tablet 50 mg PO BID Print Language: Finnish
--- NOTE | 2024-04-26 18:44 | MHC.EDTECH ---
Patient was refused the blood work, RN (Denita) aware.
[2024-04-26 20:11] LABS: Appearance Urine Clear; Color Urine Yellow; Glucose Urine UA Negative (Negative); Leukocyte Esterase Urine Negative (Negative); Nitrite Urine Negative (Negative); PH 5.5 (5.0-9.0); Specific Gravity - Urine 1.015 (1.005-1.025); UMIC TRIGGER UA YES; UPreg QC Valid YES; Urine Blood Trace (Negative); Urine Ketones 40 mg/dL (Negative); Urine Pregnancy NEGATIVE (NEGATIVE); Urine Protein Negative (Neg-Trace)
[2024-04-26 20:13] LABS: Bacteria Urine None Seen (None Seen); Hyaline Casts Urine 0-2 /LPF (0-2); RBC Urine 0-2 /HPF (0-2); WBC Urine 0-5 /HPF (0-5)
[2024-04-26 20:21] LABS: Amphetamine Screen Urine Not Detected (Not Detect); Barbiturates, Urine Not Detected (Not Detect); Benzodiazepines Screen Urine Not Detected (Not Detect); Buprenorphine Scr Not Detected (Not Detect); Cannabinoid Screen Urine Not Detected (Not Detect); Cocaine Screen Urine POSITIVE (Not Detect); Fentanyl, urine Not Detected (Not Detect); Methadone Screen, Urine Not Detected (Not Detect); Opiate Screen Urine Not Detected (Not Detect); Oxycodone Screen Urine Not Detected (Not Detect); Phencyclidine Screen Urine Not Detected (Not Detect)
--- NOTE | 2024-04-26 23:48 | PC.NURSE ---
Took over care from ELVI Healy, pt sleeping at this time.
--- NOTE | 2024-04-27 00:04 | PC.NURSE ---
pt oob requesting a shower at this time, informed her she would have to wait until the morning, gave several options, to assist her pt is not responsive. wondering truong, then turn to room.
[2024-04-27 02:02] VITALS: BP 111/67; PULSE 85; RESP 16; TEMP 36.6; O2SAT 100
[2024-04-27 02:23] LABS: Basophils Absolute Auto 0.1 X10*3/uL (0.0-0.2); Basophils Percent Auto 0.7 % (0-2); Eosinophils Absolute Auto 0.1 X10*3/uL (0.0-0.4); Eosinophils Percent Auto 1.4 % (0-4); Hematocrit 34.2 % (37.0-47.0); Hemoglobin 11.7 g/dl (12.0-16.0); Imm Gran Abs Auto 0.02 X10*3/uL (0.00-0.03); Imm Gran Pct Auto 0.3 % (0.0-0.4); Lymphocytes Absolute Auto 2.3 X10*3/uL (1.2-4.9); Lymphocytes Percent Auto 32.8 % (20-40); MANUAL DIFF FLAG NO; Mean Corpuscular HGB Conc 34.2 g/dl (31.0-35.0); Mean Corpuscular Hemoglobin 26.2 pg (27.0-33.0); Mean Corpuscular Volume 76.5 fL (80.0-98.0); Mean Platelet Volume 9.6 fL (9.4-12.3); Monocytes Absolute Auto 0.6 X10*3/uL (0.1-1.2); Monocytes Percent Auto 7.9 % (2-11); Neutrophils Percent Auto 56.9 % (45-73); Platelet Count 287 X10*3/uL (160-400); Red Blood Count 4.47 X10*6/uL (4.20-5.50); Red Cell Distribution Width 16.4 % (11.0-16.0)
[2024-04-27 02:44] LABS: Acetaminophen LAB < 3 mcg/mL (<30); Alanine Aminotransferase 21 U/L (0-31); Albumin Level 4.2 g/dL (3.5-5.0); Anion Gap 17 (12-20); Aspartate Amino Transferase 34 U/L (5-31); Bilirubin Total 0.6 mg/dL (0.0-1.0); Blood Urea Nitrogen 18 mg/dL (9-16); Calcium 9.4 mg/dL (8.4-10.2); Carbon Dioxide 18 mmol/L (22-29); Chloride 108 mmol/L (96-108); Creatinine Clr Calc Pharmacy 131.2; Estimated Glomerular Filt Rate > 60; Ethanol < 10 mg/dL; Glucose Random 115 mg/dL (60-115); Potassium 3.1 mmol/L (3.3-5.1); Salicylate < 5.0 mg/dL (15-30); Sodium 140 mmol/L (135-145); Total Protein 7.5 g/dL (6.5-8.0)
[2024-04-27 02:48] LABS: Alkaline Phosphatase 66 U/L (39-117)
--- NOTE | 2024-04-27 08:42 | PC.NURSE ---
Assumed care of patient at 0645, patient appears to be in no apparent distress this am, ambulating around the pod, calm and cooperative. Continue plan of care for CARE team follow up
--- NOTE | 2024-04-27 09:18 | PC.NURSE ---
Patient refusing to speak with CARE team
--- NOTE | 2024-04-27 09:32 | MHC.CARE ---
Pt will be an Adult inpatient psychiatric bedsearch
[2024-04-27] MEDS: Potassium Chloride ER 20 MEQ TAB.ER.PRT PO (09:48)
[2024-04-27 10:10] VITALS: BP 105/66; PULSE 76; RESP 14; TEMP 36.7; O2SAT 99
[2024-04-27 10:45] VITALS: BP 119/68; PULSE 87; RESP 18; O2SAT 100
[2024-04-27 11:04] VITALS: BMI 33.8
--- NOTE | 2024-04-27 11:06 | P.HPPS_ITS ---
HPI Date of Service: 04/27/24 Chief Complaint: crisis Sources of Information: patient interviewed, chart reviewed and crisis/core team assessment reviewed HPI Subjective Notes: Moore Warning and Conditional Voluntary Narrative: Patient is a 38-year-old female with history schizoaffective disorder, PTSD, opiate use disorder and alcohol use disorder who presented to [facility] via ambulance due to knocking on random doors, screaming and yelling that her soul was lost secondary to cocaine use and medication noncompliance. Per crisis report, patient was uncooperative. Presenting as paranoid and delusional. Making statements such as, my flesh hurts, I am being tortured by Satan. Patient reports that she has been using crack cocaine. She reports poor sleep. patient denied SI/HI. Declined to answer if she was experiencing AH/VH. History of multiple inpatient psychiatric hospitalizations. History of several substance use programs. History of medication noncompliance. During admission assessment, patient presents alert and oriented x3. Declined to participate in admission. She reported not wanting to do admission assessment due to feeling nauseous and wanting to throw up . Patient was offered Zofran PO. Showered. Past Psychiatric History: Multiple inpatient psychiatric hospitalizations. History of substance abuse treatment programs. History of medication noncompliance. Medical Evaluation Reviewed: Yes [facility] Medical History (Updated 04/27/24 @ 16:17 by Yanira Mullins NP) Opioid use disorder Generalized abdominal discomfort Medical clearance for psychiatric admission PTSD (post-traumatic stress disorder) Prediabetes Oligomenorrhea Routine medical exam Anxiety Pseudoseizures Bipolar 1 disorder, manic, moderate Family History: Bipolar Disorder Social History: . Homeless. 3 kids. Substance History: Utox positive for cocaine. Trauma History: yes Diagnostics Vital Signs (24Hr): Vital Signs - 24 hr 04/26/24 18:09 04/27/24 02:02 04/27/24 10:10 Temperature 98.5 F 97.9 F 98.1 F Pulse Rate 83 85 76 Respiratory Rate 28 H 16 14 Blood Pressure 103/80 111/67 105/66 Pulse Oximetry 99 100 99 Oxygen Delivery Method Room Air Room Air BMI result Body Mass Index 33.8 Labs 04/27/24 02:18 04/27/24 02:18 Labs: Laboratory Results - last 48 hr 04/26/24 04/27/24 19:59 02:18 WBC 7.0 RBC 4.47 Hgb 11.7 L Hct 34.2 L MCV 76.5 L MCH 26.2 L MCHC 34.2 RDW 16.4 H Plt Count 287 MPV 9.6 Immature Gran % (Auto) 0.3 Neut % (Auto) 56.9 Lymph % (Auto) 32.8 [place] % (Auto) 7.9 Eos % (Auto) 1.4 Baso % (Auto) 0.7 Lymph # (Auto) 2.3 [place] # (Auto) 0.6 Eos # (Auto) 0.1 Baso # (Auto) 0.1 Abs Immat Gran (auto) 0.02 Absolute Neuts (auto) 4.0 Absolute Nucleated RBC 0.000 Nucleated RBC % (auto) 0.0 Sodium 140 Potassium 3.1 L Chloride 108 Carbon Dioxide 18 L Anion Gap 17 BUN 18 H Creatinine 0.64 Estim Creat Clear Calc 131.2 Estimated GFR > 60 Random Glucose 115 Calcium 9.4 D Total Bilirubin 0.6 AST 34 H ALT 21 Alkaline Phosphatase 66 Total Protein 7.5 Albumin 4.2 Urine Color Yellow Urine Appearance Clear Urine pH 5.5 Ur Specific [place] 1.015 Urine Protein Negative Urine Glucose (UA) Negative Urine Ketones 40 Urine Blood Trace H Urine Nitrite Negative Ur Leukocyte Esterase Negative Urine RBC 0-2 Urine WBC 0-5 Ur Squamous Epith Cells 6-10 Urine Bacteria None Seen Hyaline Casts 0-2 Urine Test NEGATIVE Salicylates < 5.0 L Urine Opiates Screen Not Detected Ur Buprenorphine Scrn Not Detected Ur Oxycodone Screen Not Detected Urine Methadone Screen Not Detected Urine Fentanyl Screen Not Detected Acetaminophen < 3 Ur Barbiturates Screen Not Detected Ur Phencyclidine Scrn Not Detected Ur Amphetamines Screen Not Detected U Benzodiazepines Scrn Not Detected Urine Cocaine Screen POSITIVE H U Marijuana (THC) Screen Not Detected Ethyl Alcohol < 10 Meds/Allergies Meds Home Medications ?Medication ?Instructions ?Recorded ?Confirmed ?Type haloperidol 2 mg tablet 6 mg PO BEDTIME 04/14/24 04/27/24 History nicotine (polacrilex) 2 mg gum 2 mg Q2H PRN Smoking Cessation 04/14/24 04/27/24 History quetiapine 300 mg tablet 300 mg PO BEDTIME 04/14/24 04/27/24 History sertraline 25 mg tablet 25 mg PO DAILY 04/14/24 04/27/24 History topiramate 50 mg tablet 50 mg PO BID 04/14/24 04/27/24 History trazodone 50 mg tablet 50 mg PO BEDTIME PRN insomnia 04/14/24 04/27/24 History Allergies Allergies Allergy/AdvReac Type Severity Reaction Status Date / Time dog dander [DOG DANDER] Allergy Intermediate ITCHY EYES Verified 04/26/24 18:12 pollen extracts [POLLEN] Allergy Intermediate STUFFY, Verified 04/26/24 18:12 ITCHY EYES Pork/Porcine Containing Allergy Itching Verified 04/26/24 18:12 Products Mental Status Exam Mental Status Exam Patient Appearance: Disheveled Patient Orientation: Person, Place, Time and Situation Level of Consciousness: Awake Patient Behavior: Guarded and Poor Eye Contact Mood Description: Constricted Affect Description: Constricted Ability to Follow Directions: Good Speech Pattern: Clear Thought Process: Intact Assessment & Plan Assessment & Plan (1) Schizoaffective disorder, bipolar type: Status: Acute Code(s): F25.0 - Schizoaffective disorder, bipolar type (2) PTSD (post-traumatic stress disorder): Status: Acute Code(s): F43.10 - Post-traumatic stress disorder, unspecified (3) Opioid use disorder: Status: Acute Code(s): F11.90 - Opioid use, unspecified, uncomplicated (4) Cocaine use disorder: Status: Inactive Code(s): F14.10 - Cocaine abuse, uncomplicated Plan Patient is a 38-year-old female with history schizoaffective disorder, PTSD, opiate use disorder and alcohol use disorder who presented to [facility] via ambulance due to knocking on random doors, screaming and yelling that her soul was lost secondary to cocaine use and medication noncompliance. Plan: CV 15 minute safety checks continue home medications Encourage groups Build rapport Encourage medication compliance Discharge planning Patient educated on: medication risk/benefits Reason for continued inpatient stay Substantial Risk for: med/psych decompensation Statement Statement: I have reviewed the history and physical and performed a pertinent examination on my patient. No changes have occurred unless specified. If the History and Physical was not performed prior to admission, the Hospitalist's service will be consulted for completing the admission physical. Time Spent With Patient Time: Total time managing care of this patient today _30___ minutes.
--- NOTE | 2024-04-27 11:18 | PC.NURSE ---
Pt refused flu vaccine at this time
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
[2024-04-27] MEDS: Ondansetron ODT 8 MG TAB.RAPDIS TRANSLINGU (11:38)
--- NOTE | 2024-04-27 13:58 | PC.NURSE ---
pt agreed to have labs drawn however the buggy operator tried twice and was unable to draw blood. Pt was also crying/moaning and rocking back and forth during the attempt. Encouraged pt to drink fluids and will re attempt later.
[2024-04-27] MEDS: Acetaminophen 325 MG TABLET 650 MG PO (16:24)
[2024-04-27] MEDS: OLANZapine 5 MG TABLET PO (16:31)
[2024-04-27] MEDS: HaloperidoL 5 MG TABLET PO (16:37)
[2024-04-27] MEDS: QUEtiapine Fumarate 300 MG TABLET PO (21:33)
[2024-04-27] MEDS: HaloperidoL 1 MG TABLET 6 MG PO (21:33)
[2024-04-27] MEDS: Topiramate 25 MG TABLET 50 MG PO (21:33)
[2024-04-28 07:37] VITALS: BP 112/56; PULSE 78; RESP 14; TEMP 36.4; O2SAT 96
[2024-04-28] MEDS: Topiramate 25 MG TABLET 50 MG PO ×2 (08:11→20:27)
[2024-04-28] MEDS: Acetaminophen 325 MG TABLET 650 MG PO (08:11)
[2024-04-28] MEDS: Sertraline HCL 25 MG TABLET PO (08:12)
[2024-04-28 08:42] LABS: Cholesterol 242 mg/dL (<200); HDL Cholesterol 46 mg/dL (>40); LDL Cholesterol Calculated 176 mg/dL (<100); Triglycerides 103 mg/dL (<150)
[2024-04-28 08:48] LABS: Alanine Aminotransferase 19 U/L (0-31); Albumin Level 3.7 g/dL (3.5-5.0); Alkaline Phosphatase 59 U/L (39-117); Anion Gap 12 (12-20); Aspartate Amino Transferase 15 U/L (5-31); Bilirubin Total 0.2 mg/dL (0.0-1.0); Blood Urea Nitrogen 16 mg/dL (9-16); Calcium 8.7 mg/dL (8.4-10.2); Carbon Dioxide 22 mmol/L (22-29); Chloride 112 mmol/L (96-108); Creatinine Clr Calc Pharmacy 130.2; Estimated Glomerular Filt Rate > 60; Glucose Fasting 113 mg/dL (60-99); Potassium 3.3 mmol/L (3.3-5.1); Sodium 143 mmol/L (135-145); Total Protein 6.6 g/dL (6.5-8.0)
--- NOTE | 2024-04-28 09:16 | HO.PSYCHPN ---
Subjective Subjective Date of Service: 04/28/24 Reason For Visit: crisis Subjective Notes: Conditional Voluntary Interim History: Keeping to self. patient reports feeling blah today; pt stated, I feel like there is still cocaine in my system. I did it the day I came in here. I haven't been taking my meds for a month . medication compliant while inpatient. denies SI/HI/AH. She reports visual hallucinations but would not elaborate. Medication Compliance: Yes Side effects from medications: No Attending Groups: No Mental Status Exam Mental Status Exam Narrative: Pt is alert and oriented; behavior is cooperative and calm; dressed in casual attire; mood is described as depressed ; eye contact appropriate; Speech is normal rate, volume and not pressured; thought process is organized; Thought content is on tx; denies SI/HI/AH. Pt reports visual hallucinations but would not elaborate. Diagnostics Vital Signs (24Hr): Vital Signs - 24 hr 04/27/24 10:10 04/27/24 10:45 04/28/24 07:37 Temperature 98.1 F 97.6 F Pulse Rate 76 87 78 Respiratory Rate 14 18 14 Blood Pressure 105/66 119/68 112/56 L Pulse Oximetry 99 100 96 Oxygen Delivery Method Room Air Room Air Room Air BMI result Body Mass Index 33.8 Labs 04/27/24 02:18 04/28/24 08:10 Labs: Laboratory Results - last 48 hr 04/26/24 04/27/24 04/28/24 19:59 02:18 08:10 WBC 7.0 RBC 4.47 Hgb 11.7 L Hct 34.2 L MCV 76.5 L MCH 26.2 L MCHC 34.2 RDW 16.4 H Plt Count 287 MPV 9.6 Immature Gran % (Auto) 0.3 Neut % (Auto) 56.9 Lymph % (Auto) 32.8 [place] % (Auto) 7.9 Eos % (Auto) 1.4 Baso % (Auto) 0.7 Lymph # (Auto) 2.3 [place] # (Auto) 0.6 Eos # (Auto) 0.1 Baso # (Auto) 0.1 Abs Immat Gran (auto) 0.02 Absolute Neuts (auto) 4.0 Absolute Nucleated RBC 0.000 Nucleated RBC % (auto) 0.0 Sodium 140 143 Potassium 3.1 L 3.3 Chloride 108 112 H Carbon Dioxide 18 L 22 Anion Gap 17 12 BUN 18 H 16 Creatinine 0.64 0.65 Estim Creat Clear Calc 131.2 130.2 Estimated GFR > 60 > 60 Random Glucose 115 Fasting Glucose 113 H Calcium 9.4 D 8.7 D Total Bilirubin 0.6 0.2 AST 34 H 15 ALT 21 19 Alkaline Phosphatase 66 59 Total Protein 7.5 6.6 Albumin 4.2 3.7 Triglycerides 103 Cholesterol 242 H LDL Cholesterol, Calc 176 H HDL Cholesterol 46 Urine Color Yellow Urine Appearance Clear Urine pH 5.5 Ur Specific [place] 1.015 Urine Protein Negative Urine Glucose (UA) Negative Urine Ketones 40 Urine Blood Trace H Urine Nitrite Negative Ur Leukocyte Esterase Negative Urine RBC 0-2 Urine WBC 0-5 Ur Squamous Epith Cells 6-10 Urine Bacteria None Seen Hyaline Casts 0-2 Urine Test NEGATIVE Salicylates < 5.0 L Urine Opiates Screen Not Detected Ur Buprenorphine Scrn Not Detected Ur Oxycodone Screen Not Detected Urine Methadone Screen Not Detected Urine Fentanyl Screen Not Detected Acetaminophen < 3 Ur Barbiturates Screen Not Detected Ur Phencyclidine Scrn Not Detected Ur Amphetamines Screen Not Detected U Benzodiazepines Scrn Not Detected Urine Cocaine Screen POSITIVE H U Marijuana (THC) Screen Not Detected Ethyl Alcohol < 10 Medications Medications Current Medications Acetaminophen (Acetaminophen 325 Mg Tablet) 650 mg PO Q6H PRN PRN Reason: pain 1-10 Last Admin: 04/28/24 08:11 Dose: 650 mg Al Hydroxide/Mg Hydroxide (Magnesium Hydrox/Alum Hydrox 30 Ml Oral.Susp) 30 ml PO Q6H PRN PRN Reason: Heartburn/Nausea Haloperidol (Haloperidol 1 Mg Tablet) 6 mg PO BEDTIME [facility] Last Admin: 04/27/24 21:33 Dose: 6 mg Haloperidol (Haloperidol 5 Mg Tablet) 5 mg PO BID PRN PRN Reason: Psychosis Last Admin: 04/27/24 16:37 Dose: 5 mg Hydroxyzine HCl (Hydroxyzine Hcl 25 Mg Tablet) 25 mg PO Q6H PRN PRN Reason: mild anxiety Magnesium Hydroxide (Milk Of Magnesia 30 Ml Oral.Susp) 30 ml PO DAILY PRN PRN Reason: Constipation Nicotine (Nicotine 21 Mg Patch.Td24) 21 mg TRANSDERMA DAILY [facility] Last Admin: 04/28/24 08:10 Dose: Not Given Nicotine Polacrilex (Nicotine Polacrilex 2 Mg Gum) 2 mg BUCCAL Q1H PRN PRN Reason: Nicotine Cravings Olanzapine (Olanzapine 5 Mg Tablet) 5 mg PO Q4H PRN PRN Reason: agitation Last Admin: 04/27/24 16:31 Dose: 5 mg Ondansetron HCl (Ondansetron Odt 8 Mg Tab.Rapdis) 8 mg TRANSLINGU Q12H PRN PRN Reason: Nausea and Vomiting Last Admin: 04/27/24 11:38 Dose: 8 mg Quetiapine Fumarate (Quetiapine Fumarate 300 Mg Tablet) 300 mg PO BEDTIME [facility] Last Admin: 04/27/24 21:33 Dose: 300 mg Senna (Sennosides 8.6 Mg Tablet) 17.2 mg PO DAILY PRN PRN Reason: Constipation Sertraline HCl (Sertraline Hcl 25 Mg Tablet) 25 mg PO DAILY [facility] Last Admin: 04/28/24 08:12 Dose: 25 mg Topiramate (Topiramate 25 Mg Tablet) 50 mg PO BID [facility] Last Admin: 04/28/24 08:11 Dose: 50 mg Trazodone HCl (Trazodone Hcl 50 Mg Tablet) 50 mg PO BEDTIME MRX1 PRN PRN Reason: Insomnia Allergies Allergies Allergy/AdvReac Type Severity Reaction Status Date / Time dog dander [DOG DANDER] Allergy Intermediate ITCHY EYES Verified 04/26/24 18:12 pollen extracts [POLLEN] Allergy Intermediate STUFFY, Verified 04/26/24 18:12 ITCHY EYES Pork/Porcine Containing Allergy Itching Verified 04/26/24 18:12 Products Assessment & Plan Assessment & Plan (1) Schizoaffective disorder, bipolar type: Status: Acute Code(s): F25.0 - Schizoaffective disorder, bipolar type (2) PTSD (post-traumatic stress disorder): Status: Acute Code(s): F43.10 - Post-traumatic stress disorder, unspecified (3) Opioid use disorder: Status: Acute Code(s): F11.90 - Opioid use, unspecified, uncomplicated (4) Cocaine use disorder: Status: Inactive Code(s): F14.10 - Cocaine abuse, uncomplicated Plan Patient is a 38-year-old female with history schizoaffective disorder, PTSD, opiate use disorder and alcohol use disorder who presented to [facility] via ambulance due to knocking on random doors, screaming and yelling that her soul was lost secondary to cocaine use and medication noncompliance. Plan: CV 15 minute safety checks continue home medications Encourage groups Build rapport Encourage medication compliance Discharge planning 04/28: Keeping to self. patient reports feeling blah today; pt stated, I feel like there is still cocaine in my system. I did it the day I came in here. I haven't been taking my meds for a month . medication compliant while inpatient. denies SI/HI/AH. She reports visual hallucinations but would not elaborate. Continue current tx plan. Patient educated on: diagnosis, medication risk/benefits and substance abuse Reason for continued inpatient stay Substantial Risk for: med/psych decompensation Time Spent With Patient Time: Total time managing care of this patient today _20___ minutes.
[2024-04-28 20:00] VITALS: BP 138/81; PULSE 89; RESP 16; TEMP 36.8; O2SAT 97
[2024-04-28] MEDS: HaloperidoL 1 MG TABLET 6 MG PO (20:25)
[2024-04-28] MEDS: QUEtiapine Fumarate 300 MG TABLET PO (20:26)
[2024-04-28] MEDS: traZODone HCL 50 MG TABLET PO (20:31)
[2024-04-28] MEDS: hydrOXYzine HCL 25 MG TABLET PO (20:31)
[2024-04-29 08:40] VITALS: BP 118/71; PULSE 95; RESP 16; TEMP 36.8; O2SAT 100
--- NOTE | 2024-04-29 08:46 | HO.PSYCHPN ---
Subjective Subjective Date of Service: 04/29/24 Reason For Visit: crisis Subjective Notes: Conditional Voluntary Interim History: Showered. attending groups. Patient reports feeling better than yesterday ; pt stated, I'm not longer feeling nauseous or sick. I'm trying to go to groups and not be sad . denies SI/HI/VH/AH. Pt reports she is focused on her sobriety. Medication Compliance: Yes Side effects from medications: No Attending Groups: Yes Mental Status Exam Mental Status Exam Narrative: Pt is alert and oriented; behavior is cooperative and calm; dressed in casual attire; mood is described as depressed ; eye contact appropriate; Speech is normal rate, volume and not pressured; thought process is organized; Thought content is on tx; denies SI/HI/VH/AH. Diagnostics Vital Signs (24Hr): Vital Signs - 24 hr 04/28/24 20:00 04/29/24 08:40 Temperature 98.2 F 98.2 F Pulse Rate 89 95 Respiratory Rate 16 16 Blood Pressure 138/81 118/71 Pulse Oximetry 97 100 Oxygen Delivery Method Room Air Room Air BMI result Body Mass Index 33.8 Labs 04/27/24 02:18 04/28/24 08:10 Labs: Laboratory Results - last 48 hr 04/28/24 08:10 Sodium 143 Potassium 3.3 Chloride 112 H Carbon Dioxide 22 Anion Gap 12 BUN 16 Creatinine 0.65 Estim Creat Clear Calc 130.2 Estimated GFR > 60 Fasting Glucose 113 H Calcium 8.7 D Total Bilirubin 0.2 AST 15 ALT 19 Alkaline Phosphatase 59 Total Protein 6.6 Albumin 3.7 Triglycerides 103 Cholesterol 242 H LDL Cholesterol, Calc 176 H HDL Cholesterol 46 Medications Medications Current Medications Acetaminophen (Acetaminophen 325 Mg Tablet) 650 mg PO Q6H PRN PRN Reason: pain 1-10 Last Admin: 04/28/24 08:11 Dose: 650 mg Al Hydroxide/Mg Hydroxide (Magnesium Hydrox/Alum Hydrox 30 Ml Oral.Susp) 30 ml PO Q6H PRN PRN Reason: Heartburn/Nausea Haloperidol (Haloperidol 1 Mg Tablet) 6 mg PO BEDTIME [facility] Last Admin: 04/28/24 20:25 Dose: 6 mg Haloperidol (Haloperidol 5 Mg Tablet) 5 mg PO BID PRN PRN Reason: Psychosis Last Admin: 04/27/24 16:37 Dose: 5 mg Hydroxyzine HCl (Hydroxyzine Hcl 25 Mg Tablet) 25 mg PO Q6H PRN PRN Reason: mild anxiety Last Admin: 04/28/24 20:31 Dose: 25 mg Magnesium Hydroxide (Milk Of Magnesia 30 Ml Oral.Susp) 30 ml PO DAILY PRN PRN Reason: Constipation Nicotine Polacrilex (Nicotine Polacrilex 2 Mg Gum) 2 mg BUCCAL Q1H PRN PRN Reason: Nicotine Cravings Ondansetron HCl (Ondansetron Odt 8 Mg Tab.Rapdis) 8 mg TRANSLINGU Q12H PRN PRN Reason: Nausea and Vomiting Last Admin: 04/27/24 11:38 Dose: 8 mg Quetiapine Fumarate (Quetiapine Fumarate 300 Mg Tablet) 300 mg PO BEDTIME [facility] Last Admin: 04/28/24 20:26 Dose: 300 mg Senna (Sennosides 8.6 Mg Tablet) 17.2 mg PO DAILY PRN PRN Reason: Constipation Sertraline HCl (Sertraline Hcl 25 Mg Tablet) 25 mg PO DAILY [facility] Last Admin: 04/28/24 08:12 Dose: 25 mg Topiramate (Topiramate 25 Mg Tablet) 50 mg PO BID [facility] Last Admin: 04/28/24 20:27 Dose: 50 mg Trazodone HCl (Trazodone Hcl 50 Mg Tablet) 50 mg PO BEDTIME MRX1 PRN PRN Reason: Insomnia Last Admin: 04/28/24 20:31 Dose: 50 mg Allergies Allergies Allergy/AdvReac Type Severity Reaction Status Date / Time dog dander [DOG DANDER] Allergy Intermediate ITCHY EYES Verified 04/28/24 13:42 pollen extracts [POLLEN] Allergy Intermediate STUFFY, Verified 04/28/24 13:42 ITCHY EYES Pork/Porcine Containing Allergy Itching Verified 04/28/24 13:42 Products Assessment & Plan Assessment & Plan (1) Schizoaffective disorder, bipolar type: Status: Acute Code(s): F25.0 - Schizoaffective disorder, bipolar type (2) PTSD (post-traumatic stress disorder): Status: Acute Code(s): F43.10 - Post-traumatic stress disorder, unspecified (3) Opioid use disorder: Status: Acute Code(s): F11.90 - Opioid use, unspecified, uncomplicated (4) Cocaine use disorder: Status: Inactive Code(s): F14.10 - Cocaine abuse, uncomplicated Plan Patient is a 38-year-old female with history schizoaffective disorder, PTSD, opiate use disorder and alcohol use disorder who presented to [facility] via ambulance due to knocking on random doors, screaming and yelling that her soul was lost secondary to cocaine use and medication noncompliance. Plan: CV 15 minute safety checks continue home medications Encourage groups Build rapport Encourage medication compliance Discharge planning 04/28: Keeping to self. patient reports feeling blah today; pt stated, I feel like there is still cocaine in my system. I did it the day I came in here. I haven't been taking my meds for a month . medication compliant while inpatient. denies SI/HI/AH. She reports visual hallucinations but would not elaborate. Continue current tx plan. 04/29: Showered. attending groups. Patient reports feeling better than yesterday ; pt stated, I'm not longer feeling nauseous or sick. I'm trying to go to groups and not be sad . denies SI/HI/VH/AH. Pt reports she is focused on her sobriety. Continue current tx plan. Patient educated on: diagnosis, medication risk/benefits and therapeutic strategies Reason for continued inpatient stay Substantial Risk for: med/psych decompensation Time Spent With Patient Time: Total time managing care of this patient today _20___ minutes.
[2024-04-29] MEDS: Sertraline HCL 25 MG TABLET PO (08:48)
[2024-04-29] MEDS: Topiramate 25 MG TABLET 50 MG PO ×2 (08:51→20:10)
[2024-04-29] MEDS: HaloperidoL 5 MG TABLET PO ×2 (08:52→20:10)
[2024-04-29] MEDS: hydrOXYzine HCL 25 MG TABLET PO (08:52)
[2024-04-29 19:20] VITALS: BP 116/73; PULSE 95; RESP 16; TEMP 36.8; O2SAT 96
[2024-04-29] MEDS: Acetaminophen 325 MG TABLET 650 MG PO (19:24)
[2024-04-29] MEDS: QUEtiapine Fumarate 300 MG TABLET PO (20:10)
[2024-04-29] MEDS: HaloperidoL 1 MG TABLET PO (20:10)
[2024-04-29 20:14] LABS: Appearance Urine Clear; Color Urine Yellow; Glucose Urine UA Negative (Negative); Leukocyte Esterase Urine Negative (Negative); Nitrite Urine Negative (Negative); Specific Gravity - Urine <= 1.005 (1.005-1.025); Urine Blood Negative (Negative); Urine Ketones Negative (Negative); Urine Protein Negative (Neg-Trace)
[2024-04-30 07:00] VITALS: BMI 35.5
[2024-04-30 07:40] VITALS: BP 95/53; PULSE 73; RESP 14; TEMP 36.4; O2SAT 97
[2024-04-30] MEDS: Sertraline HCL 25 MG TABLET PO (08:54)
[2024-04-30] MEDS: Topiramate 25 MG TABLET 50 MG PO ×2 (08:54→20:05)
[2024-04-30 08:56] VITALS: BP 106/57
--- NOTE | 2024-04-30 12:18 | HO.PSYCHPN ---
Subjective Subjective Date of Service: 04/30/24 Reason For Visit: crisis Interim History: Leah is active in our meeting. She reports anxiety secondary to homelessness. She discussed her relationship and reports is in the streets and this presents difficulty for both of them to remain clean. She reports using her mp to try and help, it all comes down to evil vs. purity, we need the zoroastrian to guide both my and I . Discussed some concerns with her roommates symptoms . Believes that structure, organization, taking responsibility and learning new ways to be responsible will help in her recovery. Denies SI,HI,VH. Some AH and paranoia present. Using Haldol prn. Declines need for medication intake. Team reports seven hours of sleep last night. Medication Compliance: Yes Side effects from medications: No Attending Groups: Intermittent Review of Systems two teeth L upper molars need extraction per pt report. Pt aware she will need to address this post dischrge Medical Review of Systems: unchanged Review of Systems Review of Systems dental pain Mental Status Exam Mental Status Exam Patient Appearance: Fatigued Patient Orientation: Person, Place, Time and Situation Level of Consciousness: Alert Patient Behavior: Appropriate, Talkative, Cooperative, Anxious, Fatigued, Distractible and Good Eye Contact Mood Description: Depressed Affect Description: Flat Patient Cognition Impaired: No Ability to Follow Directions: Good Speech Pattern: Spontaneous Speech and Soft-Spoken Memory Description: Episodic Impaired Hallucinations: None Delusions: Paranoid Ideation and Present Thought Process: Rumination Thought Content: positive for Perseveration and positive for Suicidal Ideation (denies) Depressive Symptoms: Diff. Making Decisions, Unhappiness, Increased Fatigue and Thoughts of /Suicide (denies) Judgement: Fair Diagnostics Vital Signs (24Hr): Vital Signs - 24 hr 04/29/24 19:20 04/30/24 07:40 04/30/24 08:56 Temperature 98.2 F 97.6 F Pulse Rate 95 73 Respiratory Rate 16 14 Blood Pressure 116/73 95/53 L 106/57 L Pulse Oximetry 96 97 Oxygen Delivery Method Room Air Room Air BMI result Body Mass Index 33.8 Labs 04/27/24 02:18 04/28/24 08:10 Labs: Laboratory Results - last 48 hr 04/29/24 19:45 Urine Color Yellow Urine Appearance Clear Urine pH 8.0 Ur Specific [place] <= 1.005 Urine Protein Negative Urine Glucose (UA) Negative Urine Ketones Negative Urine Blood Negative Urine Nitrite Negative Ur Leukocyte Esterase Negative Medications Medications Current Medications Acetaminophen (Acetaminophen 325 Mg Tablet) 650 mg PO Q6H PRN PRN Reason: pain 1-10 Last Admin: 04/29/24 19:24 Dose: 650 mg Al Hydroxide/Mg Hydroxide (Magnesium Hydrox/Alum Hydrox 30 Ml Oral.Susp) 30 ml PO Q6H PRN PRN Reason: Heartburn/Nausea Haloperidol (Haloperidol 5 Mg Tablet) 5 mg PO BID PRN PRN Reason: Psychosis Last Admin: 04/29/24 08:52 Dose: 5 mg Haloperidol (Haloperidol 5 Mg Tablet) 5 mg PO BEDTIME [facility] Last Admin: 04/29/24 20:10 Dose: 5 mg Haloperidol (Haloperidol 1 Mg Tablet) 1 mg PO BEDTIME [facility] Last Admin: 04/29/24 20:10 Dose: 1 mg Hydroxyzine HCl (Hydroxyzine Hcl 25 Mg Tablet) 25 mg PO Q6H PRN PRN Reason: mild anxiety Last Admin: 04/29/24 08:52 Dose: 25 mg Magnesium Hydroxide (Milk Of Magnesia 30 Ml Oral.Susp) 30 ml PO DAILY PRN PRN Reason: Constipation Nicotine Polacrilex (Nicotine Polacrilex 2 Mg Gum) 2 mg BUCCAL Q1H PRN PRN Reason: Nicotine Cravings Ondansetron HCl (Ondansetron Odt 8 Mg Tab.Rapdis) 8 mg TRANSLINGU Q12H PRN PRN Reason: Nausea and Vomiting Last Admin: 04/27/24 11:38 Dose: 8 mg Quetiapine Fumarate (Quetiapine Fumarate 300 Mg Tablet) 300 mg PO BEDTIME [facility] Last Admin: 04/29/24 20:10 Dose: 300 mg Senna (Sennosides 8.6 Mg Tablet) 17.2 mg PO DAILY PRN PRN Reason: Constipation Sertraline HCl (Sertraline Hcl 25 Mg Tablet) 25 mg PO DAILY [facility] Last Admin: 04/30/24 08:54 Dose: 25 mg Topiramate (Topiramate 25 Mg Tablet) 50 mg PO BID [facility] Last Admin: 04/30/24 08:54 Dose: 50 mg Trazodone HCl (Trazodone Hcl 50 Mg Tablet) 50 mg PO BEDTIME MRX1 PRN PRN Reason: Insomnia Last Admin: 04/28/24 20:31 Dose: 50 mg Allergies Allergies Allergy/AdvReac Type Severity Reaction Status Date / Time dog dander [DOG DANDER] Allergy Intermediate ITCHY EYES Verified 04/28/24 13:42 pollen extracts [POLLEN] Allergy Intermediate STUFFY, Verified 04/28/24 13:42 ITCHY EYES Pork/Porcine Containing Allergy Itching Verified 04/28/24 13:42 Products Assessment & Plan Assessment & Plan (1) Schizoaffective disorder, bipolar type: Status: Acute Code(s): F25.0 - Schizoaffective disorder, bipolar type (2) PTSD (post-traumatic stress disorder): Status: Acute Code(s): F43.10 - Post-traumatic stress disorder, unspecified (3) Opioid use disorder: Status: Acute Code(s): F11.90 - Opioid use, unspecified, uncomplicated (4) Cocaine use disorder: Status: Inactive Code(s): F14.10 - Cocaine abuse, uncomplicated Plan Patient is a 38-year-old female with history schizoaffective disorder, PTSD, opiate use disorder and alcohol use disorder who presented to [facility] via ambulance due to knocking on random doors, screaming and yelling that her soul was lost secondary to cocaine use and medication noncompliance. Plan: CV 15 minute safety checks continue home medications Encourage groups Build rapport Encourage medication compliance Discharge planning 04/28: Keeping to self. patient reports feeling blah today; pt stated, I feel like there is still cocaine in my system. I did it the day I came in here. I haven't been taking my meds for a month . medication compliant while inpatient. denies SI/HI/AH. She reports visual hallucinations but would not elaborate. Continue current tx plan. 04/29: Showered. attending groups. Patient reports feeling better than yesterday ; pt stated, I'm not longer feeling nauseous or sick. I'm trying to go to groups and not be sad . denies SI/HI/VH/AH. Pt reports she is focused on her sobriety. Continue current tx plan. 04/30: Identified what will help her to remain in recovery today. Focused on this. Anxious about homelessness. Reason for continued inpatient stay Substantial Risk for: rapid decompensation Time Spent With Patient Time: Total time managing care of this patient today ____ minutes.
--- NOTE | 2024-04-30 12:44 | PC.NURSE ---
Patient submitted 3 day notice.
[2024-04-30] MEDS: Acetaminophen 325 MG TABLET 650 MG PO (17:33)
[2024-04-30 19:20] VITALS: BP 118/73; PULSE 83; RESP 16; TEMP 36.4; O2SAT 97
[2024-04-30] MEDS: Sennosides 8.6 MG TABLET 17.2 MG PO (20:04)
[2024-04-30] MEDS: traZODone HCL 50 MG TABLET PO (20:04)
[2024-04-30] MEDS: HaloperidoL 1 MG TABLET PO (20:05)
[2024-04-30] MEDS: QUEtiapine Fumarate 300 MG TABLET PO (20:05)
[2024-04-30] MEDS: HaloperidoL 5 MG TABLET PO (20:05)
[2024-05-01 07:25] VITALS: BP 96/52; PULSE 75; RESP 16; TEMP 36.6; O2SAT 97
[2024-05-01] MEDS: Sertraline HCL 25 MG TABLET PO (09:11)
[2024-05-01] MEDS: Topiramate 25 MG TABLET 50 MG PO ×2 (09:11→20:14)
[2024-05-01 09:13] VITALS: BP 130/60
--- NOTE | 2024-05-01 14:33 | P.PNPSI_ITS ---
Subjective Subjective Date of Service: 05/01/24 Reason For Visit: crisis Subjective Notes: 3 Day Interim History: 3 day notice up on 05/05/24. patient is requesting to be discharged on Saturday d/t having a medical appointment. observed pacing unit hallway and listening to music on uit headphones. Pt reports feeling better today; pt stated, I plan on leaving here and staying at a nursing home. I want to go back to voodoo and stay away from drugs . denies SI/HI/VH/AH. Plan to discharge Saturday if continues to improve. Medication Compliance: Yes Side effects from medications: No Attending Groups: Intermittent Mental Status Exam Mental Status Exam Narrative: Pt is alert and oriented; behavior is cooperative and calm; dressed in casual attire; mood is described as better ; eye contact appropriate; Speech is normal rate, volume and not pressured; thought process is goal directed; Thought content is on tx and discharge; denies SI/HI/VH/AH. Diagnostics Vital Signs (24Hr): Vital Signs - 24 hr 04/30/24 19:20 05/01/24 07:25 05/01/24 09:13 Temperature 97.6 F 97.8 F Pulse Rate 83 75 Respiratory Rate 16 16 Blood Pressure 118/73 96/52 L 130/60 Pulse Oximetry 97 97 Oxygen Delivery Method Room Air Room Air BMI result Body Mass Index 35.5 Labs 04/27/24 02:18 04/28/24 08:10 Labs: Laboratory Results - last 48 hr 04/29/24 19:45 Urine Color Yellow Urine Appearance Clear Urine pH 8.0 Ur Specific [place] <= 1.005 Urine Protein Negative Urine Glucose (UA) Negative Urine Ketones Negative Urine Blood Negative Urine Nitrite Negative Ur Leukocyte Esterase Negative Medications Medications Current Medications Acetaminophen (Acetaminophen 325 Mg Tablet) 650 mg PO Q6H PRN PRN Reason: pain 1-10 Last Admin: 04/30/24 17:33 Dose: 650 mg Al Hydroxide/Mg Hydroxide (Magnesium Hydrox/Alum Hydrox 30 Ml Oral.Susp) 30 ml PO Q6H PRN PRN Reason: Heartburn/Nausea Haloperidol (Haloperidol 5 Mg Tablet) 5 mg PO BID PRN PRN Reason: Psychosis Last Admin: 04/29/24 08:52 Dose: 5 mg Haloperidol (Haloperidol 5 Mg Tablet) 5 mg PO BEDTIME ENRIKE Last Admin: 04/30/24 20:05 Dose: 5 mg Haloperidol (Haloperidol 1 Mg Tablet) 1 mg PO BEDTIME ENRIKE Last Admin: 04/30/24 20:05 Dose: 1 mg Hydroxyzine HCl (Hydroxyzine Hcl 25 Mg Tablet) 25 mg PO Q6H PRN PRN Reason: mild anxiety Last Admin: 04/29/24 08:52 Dose: 25 mg Magnesium Hydroxide (Milk Of Magnesia 30 Ml Oral.Susp) 30 ml PO DAILY PRN PRN Reason: Constipation Nicotine Polacrilex (Nicotine Polacrilex 2 Mg Gum) 2 mg BUCCAL Q1H PRN PRN Reason: Nicotine Cravings Ondansetron HCl (Ondansetron Odt 8 Mg Tab.Rapdis) 8 mg TRANSLINGU Q12H PRN PRN Reason: Nausea and Vomiting Last Admin: 04/27/24 11:38 Dose: 8 mg Quetiapine Fumarate (Quetiapine Fumarate 300 Mg Tablet) 300 mg PO BEDTIME [facility] Last Admin: 04/30/24 20:05 Dose: 300 mg Senna (Sennosides 8.6 Mg Tablet) 17.2 mg PO DAILY PRN PRN Reason: Constipation Last Admin: 04/30/24 20:04 Dose: 17.2 mg Sertraline HCl (Sertraline Hcl 25 Mg Tablet) 25 mg PO DAILY [facility] Last Admin: 05/01/24 09:11 Dose: 25 mg Topiramate (Topiramate 25 Mg Tablet) 50 mg PO BID [facility] Last Admin: 05/01/24 09:11 Dose: 50 mg Trazodone HCl (Trazodone Hcl 50 Mg Tablet) 50 mg PO BEDTIME MRX1 PRN PRN Reason: Insomnia Last Admin: 04/30/24 20:04 Dose: 50 mg Allergies Allergies Allergy/AdvReac Type Severity Reaction Status Date / Time dog dander [DOG DANDER] Allergy Intermediate ITCHY EYES Verified 04/28/24 13:42 pollen extracts [POLLEN] Allergy Intermediate STUFFY, Verified 04/28/24 13:42 ITCHY EYES Pork/Porcine Containing Allergy Itching Verified 04/28/24 13:42 Products Assessment & Plan Assessment & Plan (1) Schizoaffective disorder, bipolar type: Status: Acute Code(s): F25.0 - Schizoaffective disorder, bipolar type (2) PTSD (post-traumatic stress disorder): Status: Acute Code(s): F43.10 - Post-traumatic stress disorder, unspecified (3) Opioid use disorder: Status: Acute Code(s): F11.90 - Opioid use, unspecified, uncomplicated (4) Cocaine use disorder: Status: Inactive Code(s): F14.10 - Cocaine abuse, uncomplicated Plan Patient is a 38-year-old female with history schizoaffective disorder, PTSD, opiate use disorder and alcohol use disorder who presented to [facility] via ambulance due to knocking on random doors, screaming and yelling that her soul was lost secondary to cocaine use and medication noncompliance. Plan: CV 15 minute safety checks continue home medications Encourage groups Build rapport Encourage medication compliance Discharge planning 04/28: Keeping to self. patient reports feeling blah today; pt stated, I feel like there is still cocaine in my system. I did it the day I came in here. I haven't been taking my meds for a month . medication compliant while inpatient. denies SI/HI/AH. She reports visual hallucinations but would not elaborate. Continue current tx plan. 04/29: Showered. attending groups. Patient reports feeling better than yesterday ; pt stated, I'm not longer feeling nauseous or sick. I'm trying to go to groups and not be sad . denies SI/HI/VH/AH. Pt reports she is focused on her sobriety. Continue current tx plan. 04/30: Identified what will help her to remain in recovery today. Focused on this. Anxious about homelessness. 05/01: 3 day notice up on 05/05/24. patient is requesting to be discharged on Saturday d/t having a medical appointment. observed pacing unit hallway and listening to music on uit headphones. Pt reports feeling better today; pt stated, I plan on leaving here and staying at a nursing home. I want to go back to voodoo and stay away from drugs . denies SI/HI/VH/AH. Plan to discharge Saturday if continues to improve. Patient educated on: diagnosis, medication risk/benefits and therapeutic strategies Reason for continued inpatient stay Substantial Risk for: med/psych decompensation Time Spent With Patient Time: Total time managing care of this patient today _20___ minutes.
[2024-05-01 20:00] VITALS: BP 129/83; PULSE 96; RESP 16; TEMP 36.5; O2SAT 98
[2024-05-01] MEDS: QUEtiapine Fumarate 300 MG TABLET PO (20:13)
[2024-05-01] MEDS: hydrOXYzine HCL 25 MG TABLET PO (20:13)
[2024-05-01] MEDS: HaloperidoL 1 MG TABLET PO (20:13)
[2024-05-01] MEDS: traZODone HCL 50 MG TABLET PO (20:13)
[2024-05-01] MEDS: HaloperidoL 5 MG TABLET PO (20:14)
[2024-05-02 08:16] VITALS: BP 108/59; PULSE 74; TEMP 36.3; O2SAT 97
--- NOTE | 2024-05-02 09:00 | HO.PSYCHPN ---
Subjective Subjective Date of Service: 05/02/24 Reason For Visit: crisis Interim History: 3 day notice up on 05/05/24. She remains anxious and reports feeling a presence in her room last night that affected her mood and ability to sleep. Staff reports to see her praying and she is religiously preoccupied. Anxious. Denies SI. Review of Systems Review of Systems dental pain Constitutional: Denies body ache(s) and Denies headache(s) Denies headache(s) Cardiovascular: Denies chest pain Gastrointestinal: Denies abdominal pain Musculoskeletal: Denies back pain Denies headache(s) Psychiatric: Reports anxiety and Reports paranoia Mental Status Exam Mental Status Exam Narrative: Pt is alert and oriented; behavior is cooperative and calm; dressed in casual attire; mood is described as better ; eye contact appropriate; Speech is normal rate, volume and not pressured; thought process is goal directed; Thought content is on tx and discharge; denies SI/HI/VH/AH. Patient Appearance: Fatigued Patient Orientation: Person, Place, Time and Situation Level of Consciousness: Alert Patient Behavior: Appropriate, Talkative, Cooperative, Anxious, Fatigued, Distractible and Good Eye Contact Mood Description: Depressed Affect Description: Flat Patient Cognition Impaired: No Ability to Follow Directions: Good Speech Pattern: Spontaneous Speech and Soft-Spoken Memory Description: Episodic Impaired Diagnostics Vital Signs (24Hr): Vital Signs - 24 hr 05/01/24 09:13 05/01/24 20:00 05/02/24 08:16 Temperature 97.7 F 97.3 F Pulse Rate 96 74 Respiratory Rate 16 Blood Pressure 130/60 129/83 108/59 L Pulse Oximetry 98 97 Oxygen Delivery Method Room Air Room Air BMI result Body Mass Index 35.5 Labs 04/27/24 02:18 04/28/24 08:10 Medications Medications Current Medications Acetaminophen (Acetaminophen 325 Mg Tablet) 650 mg PO Q6H PRN PRN Reason: pain 1-10 Last Admin: 04/30/24 17:33 Dose: 650 mg Al Hydroxide/Mg Hydroxide (Magnesium Hydrox/Alum Hydrox 30 Ml Oral.Susp) 30 ml PO Q6H PRN PRN Reason: Heartburn/Nausea Haloperidol (Haloperidol 5 Mg Tablet) 5 mg PO BID PRN PRN Reason: Psychosis Last Admin: 04/29/24 08:52 Dose: 5 mg Haloperidol (Haloperidol 5 Mg Tablet) 5 mg PO BEDTIME ENRIKE Last Admin: 05/01/24 20:14 Dose: 5 mg Haloperidol (Haloperidol 1 Mg Tablet) 1 mg PO BEDTIME ENRIKE Last Admin: 05/01/24 20:13 Dose: 1 mg Hydroxyzine HCl (Hydroxyzine Hcl 25 Mg Tablet) 25 mg PO Q6H PRN PRN Reason: mild anxiety Last Admin: 05/01/24 20:13 Dose: 25 mg Magnesium Hydroxide (Milk Of Magnesia 30 Ml Oral.Susp) 30 ml PO DAILY PRN PRN Reason: Constipation Nicotine Polacrilex (Nicotine Polacrilex 2 Mg Gum) 2 mg BUCCAL Q1H PRN PRN Reason: Nicotine Cravings Ondansetron HCl (Ondansetron Odt 8 Mg Tab.Rapdis) 8 mg TRANSLINGU Q12H PRN PRN Reason: Nausea and Vomiting Last Admin: 04/27/24 11:38 Dose: 8 mg Quetiapine Fumarate (Quetiapine Fumarate 300 Mg Tablet) 300 mg PO BEDTIME [facility] Last Admin: 05/01/24 20:13 Dose: 300 mg Senna (Sennosides 8.6 Mg Tablet) 17.2 mg PO DAILY PRN PRN Reason: Constipation Last Admin: 04/30/24 20:04 Dose: 17.2 mg Sertraline HCl (Sertraline Hcl 25 Mg Tablet) 25 mg PO DAILY [facility] Last Admin: 05/01/24 09:11 Dose: 25 mg Topiramate (Topiramate 25 Mg Tablet) 50 mg PO BID [facility] Last Admin: 05/01/24 20:14 Dose: 50 mg Trazodone HCl (Trazodone Hcl 50 Mg Tablet) 50 mg PO BEDTIME MRX1 PRN PRN Reason: Insomnia Last Admin: 05/01/24 20:13 Dose: 50 mg Allergies Allergies Allergy/AdvReac Type Severity Reaction Status Date / Time dog dander [DOG DANDER] Allergy Intermediate ITCHY EYES Verified 04/28/24 13:42 pollen extracts [POLLEN] Allergy Intermediate STUFFY, Verified 04/28/24 13:42 ITCHY EYES Pork/Porcine Containing Allergy Itching Verified 04/28/24 13:42 Products Assessment & Plan Assessment & Plan (1) Schizoaffective disorder, bipolar type: Status: Acute Code(s): F25.0 - Schizoaffective disorder, bipolar type (2) PTSD (post-traumatic stress disorder): Status: Acute Code(s): F43.10 - Post-traumatic stress disorder, unspecified (3) Opioid use disorder: Status: Acute Code(s): F11.90 - Opioid use, unspecified, uncomplicated (4) Cocaine use disorder: Status: Inactive Code(s): F14.10 - Cocaine abuse, uncomplicated Plan Patient is a 38-year-old female with history schizoaffective disorder, PTSD, opiate use disorder and alcohol use disorder who presented to [facility] via ambulance due to knocking on random doors, screaming and yelling that her soul was lost secondary to cocaine use and medication noncompliance. Plan: CV 15 minute safety checks continue home medications Encourage groups Build rapport Encourage medication compliance Discharge planning 04/28: Keeping to self. patient reports feeling blah today; pt stated, I feel like there is still cocaine in my system. I did it the day I came in here. I haven't been taking my meds for a month . medication compliant while inpatient. denies SI/HI/AH. She reports visual hallucinations but would not elaborate. Continue current tx plan. 04/29: Showered. attending groups. Patient reports feeling better than yesterday ; pt stated, I'm not longer feeling nauseous or sick. I'm trying to go to groups and not be sad . denies SI/HI/VH/AH. Pt reports she is focused on her sobriety. Continue current tx plan. 04/30: Identified what will help her to remain in recovery today. Focused on this. Anxious about homelessness. 05/01: 3 day notice up on 05/05/24. patient is requesting to be discharged on Saturday d/t having a medical appointment. observed pacing unit hallway and listening to music on uit headphones. Pt reports feeling better today; pt stated, I plan on leaving here and staying [facility]. I want to go back to [employer] and stay away from drugs . denies SI/HI/VH/AH. Plan to discharge Saturday if continues to improve. 05/02: Continue current management and treatment plan. Reason for continued inpatient stay Substantial Risk for: inability to function and rapid decompensation Time Spent With Patient Time: Total time managing care of this patient today ____ minutes.
[2024-05-02] MEDS: Sertraline HCL 25 MG TABLET PO (09:16)
[2024-05-02] MEDS: Topiramate 25 MG TABLET 50 MG PO ×2 (09:16→20:05)
[2024-05-02] MEDS: hydrOXYzine HCL 25 MG TABLET PO (15:18)
[2024-05-02] MEDS: LORazepam 1 MG TABLET PO (18:42)
[2024-05-02 20:00] VITALS: BP 112/59; PULSE 78; RESP 16; TEMP 37.1; O2SAT 97
[2024-05-02] MEDS: traZODone HCL 50 MG TABLET PO ×2 (20:05→21:11)
[2024-05-02] MEDS: HaloperidoL 5 MG TABLET PO (20:05)
[2024-05-02] MEDS: QUEtiapine Fumarate 300 MG TABLET PO (20:06)
[2024-05-02] MEDS: HaloperidoL 1 MG TABLET PO (20:06)
[2024-05-02] MEDS: Acetaminophen 325 MG TABLET 650 MG PO (20:09)
[2024-05-03 09:05] VITALS: BP 103/51; PULSE 75; RESP 14; TEMP 36.8; O2SAT 97
[2024-05-03] MEDS: Sertraline HCL 25 MG TABLET PO (09:06)
[2024-05-03] MEDS: Topiramate 25 MG TABLET 50 MG PO ×2 (09:06→20:06)
--- NOTE | 2024-05-03 12:10 | P.PNPSI_ITS ---
Subjective Subjective Date of Service: 05/03/24 Reason For Visit: crisis Interim History: 3 day notice up on 05/05/24. Less disorganized. More appropriate. Ddenies depression. Voices decreased. She is less anxious. Staff reports to see her praying and she is religiously preoccupied. Denies SI. Review of Systems Review of Systems dental pain Constitutional: Denies body ache(s) and Denies headache(s) Denies headache(s) Cardiovascular: Denies chest pain Gastrointestinal: Denies abdominal pain Musculoskeletal: Denies back pain Denies headache(s) Psychiatric: Reports anxiety and Reports paranoia Mental Status Exam Mental Status Exam Narrative: Pt is alert and oriented; behavior is cooperative and calm; dressed in casual attire; mood is described as better ; eye contact appropriate; Speech is normal rate, volume and not pressured; thought process is goal directed; Thought content is on tx and discharge; denies SI/HI/VH/AH. Patient Appearance: Fatigued Patient Orientation: Person, Place, Time and Situation Level of Consciousness: Alert Patient Behavior: Appropriate, Talkative, Cooperative, Anxious, Fatigued, Distractible and Good Eye Contact Mood Description: Depressed Affect Description: Flat Patient Cognition Impaired: No Ability to Follow Directions: Good Speech Pattern: Spontaneous Speech and Soft-Spoken Memory Description: Episodic Impaired Diagnostics Vital Signs (24Hr): Vital Signs - 24 hr 05/02/24 20:00 05/03/24 09:05 Temperature 98.7 F 98.3 F Pulse Rate 78 75 Respiratory Rate 16 14 Blood Pressure 112/59 L 103/51 L Pulse Oximetry 97 97 Oxygen Delivery Method Room Air Room Air BMI result Body Mass Index 35.5 Labs 04/27/24 02:18 04/28/24 08:10 Medications Medications Current Medications Acetaminophen (Acetaminophen 325 Mg Tablet) 650 mg PO Q6H PRN PRN Reason: pain 1-10 Last Admin: 05/02/24 20:09 Dose: 650 mg Al Hydroxide/Mg Hydroxide (Magnesium Hydrox/Alum Hydrox 30 Ml Oral.Susp) 30 ml PO Q6H PRN PRN Reason: Heartburn/Nausea Haloperidol (Haloperidol 5 Mg Tablet) 5 mg PO BID PRN PRN Reason: Psychosis Last Admin: 04/29/24 08:52 Dose: 5 mg Haloperidol (Haloperidol 5 Mg Tablet) 5 mg PO BEDTIME [facility]RIKE Last Admin: 05/02/24 20:05 Dose: 5 mg Haloperidol (Haloperidol 1 Mg Tablet) 1 mg PO BEDTIME [facility] Last Admin: 05/02/24 20:06 Dose: 1 mg Hydroxyzine HCl (Hydroxyzine Hcl 25 Mg Tablet) 25 mg PO Q6H PRN PRN Reason: mild anxiety Last Admin: 05/02/24 15:18 Dose: 25 mg Magnesium Hydroxide (Milk Of Magnesia 30 Ml Oral.Susp) 30 ml PO DAILY PRN PRN Reason: Constipation Multi-Ingred Cream/Lotion/Oil/Oint (Mineral Oil/Petrolatum,White 106 Gm Tube) 1 appl TOPICAL BID [facility]; Protocol Last Admin: 05/03/24 09:07 Dose: Not Given Nicotine Polacrilex (Nicotine Polacrilex 2 Mg Gum) 2 mg BUCCAL Q1H PRN PRN Reason: Nicotine Cravings Ondansetron HCl (Ondansetron Odt 8 Mg Tab.Rapdis) 8 mg TRANSLINGU Q12H PRN PRN Reason: Nausea and Vomiting Last Admin: 04/27/24 11:38 Dose: 8 mg Quetiapine Fumarate (Quetiapine Fumarate 300 Mg Tablet) 300 mg PO BEDTIME [facility] Last Admin: 05/02/24 20:06 Dose: 300 mg Senna (Sennosides 8.6 Mg Tablet) 17.2 mg PO DAILY PRN PRN Reason: Constipation Last Admin: 04/30/24 20:04 Dose: 17.2 mg Sertraline HCl (Sertraline Hcl 25 Mg Tablet) 25 mg PO DAILY [facility] Last Admin: 05/03/24 09:06 Dose: 25 mg Topiramate (Topiramate 25 Mg Tablet) 50 mg PO BID [facility] Last Admin: 05/03/24 09:06 Dose: 50 mg Trazodone HCl (Trazodone Hcl 50 Mg Tablet) 50 mg PO BEDTIME MRX1 PRN PRN Reason: Insomnia Last Admin: 05/02/24 21:11 Dose: 50 mg Allergies Allergies Allergy/AdvReac Type Severity Reaction Status Date / Time dog dander [DOG DANDER] Allergy Intermediate ITCHY EYES Verified 04/28/24 13:42 pollen extracts [POLLEN] Allergy Intermediate STUFFY, Verified 04/28/24 13:42 ITCHY EYES Pork/Porcine Containing Allergy Itching Verified 04/28/24 13:42 Products Assessment & Plan Assessment & Plan (1) Schizoaffective disorder, bipolar type: Status: Acute Code(s): F25.0 - Schizoaffective disorder, bipolar type (2) PTSD (post-traumatic stress disorder): Status: Acute Code(s): F43.10 - Post-traumatic stress disorder, unspecified (3) Opioid use disorder: Status: Acute Code(s): F11.90 - Opioid use, unspecified, uncomplicated (4) Cocaine use disorder: Status: Inactive Code(s): F14.10 - Cocaine abuse, uncomplicated Plan Patient is a 38-year-old female with history schizoaffective disorder, PTSD, opiate use disorder and alcohol use disorder who presented to [facility] via ambulance due to knocking on random doors, screaming and yelling that her soul was lost secondary to cocaine use and medication noncompliance. Plan: CV 15 minute safety checks continue home medications Encourage groups Build rapport Encourage medication compliance Discharge planning 04/28: Keeping to self. patient reports feeling blah today; pt stated, I feel like there is still cocaine in my system. I did it the day I came in here. I haven't been taking my meds for a month . medication compliant while inpatient. denies SI/HI/AH. She reports visual hallucinations but would not elaborate. Continue current tx plan. 04/29: Showered. attending groups. Patient reports feeling better than yesterday ; pt stated, I'm not longer feeling nauseous or sick. I'm trying to go to groups and not be sad . denies SI/HI/VH/AH. Pt reports she is focused on her sobriety. Continue current tx plan. 04/30: Identified what will help her to remain in recovery today. Focused on this. Anxious about homelessness. 05/01: 3 day notice up on 05/05/24. patient is requesting to be discharged on Saturday d/t having a medical appointment. observed pacing unit hallway and listening to music on uit headphones. Pt reports feeling better today; pt stated, I plan on leaving here and staying [facility] a [facility]. I want to go back to [employer] and stay away from drugs . denies SI/HI/VH/AH. Plan to discharge Saturday if continues to improve. 05/02: Continue current management and treatment plan. 05/03: Improving. Continue current management and treatment plan. Reason for continued inpatient stay Substantial Risk for: inability to function and rapid decompensation Time Spent With Patient Time: Total time managing care of this patient today ____ minutes.
[2024-05-03] MEDS: HaloperidoL 5 MG TABLET PO ×2 (18:19→20:06)
[2024-05-03] MEDS: hydrOXYzine HCL 25 MG TABLET PO (18:19)
[2024-05-03 20:00] VITALS: BP 130/74; PULSE 84; RESP 18; TEMP 36.8; O2SAT 99
[2024-05-03] MEDS: QUEtiapine Fumarate 300 MG TABLET PO (20:06)
[2024-05-03] MEDS: HaloperidoL 1 MG TABLET PO (20:06)
[2024-05-03] MEDS: traZODone HCL 50 MG TABLET PO ×2 (20:09→21:00)
[2024-05-04 07:47] VITALS: BP 97/65; PULSE 85; RESP 14; TEMP 36.6; O2SAT 96
[2024-05-04] MEDS: Topiramate 25 MG TABLET 50 MG PO (08:43)
[2024-05-04] MEDS: Sertraline HCL 25 MG TABLET PO (08:43)
--- NOTE | 2024-05-04 09:09 | P.DS_ITS ---
DS: Providers Provider Date of Service: 05/04/24 Date of admission: 04/27/24 10:18 Date of discharge: 05/04/24 Primary care physician: Unknown Physician Admitting clinician: Yanira Mullins Attending physician on admission: Oren Baird Attending physician on discharge: Oren Baird Discharging clinician: Yanira Mullins DS: Diagnosis Discharge Diagnosis (1) Schizoaffective disorder, bipolar type: Status: Acute (2) PTSD (post-traumatic stress disorder): Status: Acute (3) Opioid use disorder: Status: Acute (4) Cocaine use disorder: Status: Inactive DS: Medications Discharge Medications Home Medications: Home Medications ?Medication ?Instructions ?Recorded ?Confirmed haloperidol 2 mg tablet 6 mg PO BEDTIME 04/14/24 04/27/24 nicotine (polacrilex) 2 mg gum 2 mg Q2H PRN Smoking Cessation 04/14/24 04/27/24 quetiapine 300 mg tablet 300 mg PO BEDTIME 04/14/24 04/27/24 sertraline 25 mg tablet 25 mg PO DAILY 04/14/24 04/27/24 topiramate 50 mg tablet 50 mg PO BID 04/14/24 04/27/24 trazodone 50 mg tablet 50 mg PO BEDTIME PRN insomnia 04/14/24 04/27/24 Mental Status Exam Mental Status Exam Narrative: Pt is alert and oriented; behavior is cooperative, friendly and calm; dressed in casual attire; mood is described as good ; eye contact appropriate; Speech is normal rate, volume and not pressured; thought process is organized; Thought content is on tx; denies SI/HI/VH/AH. Data Data Completed and Pending Completed studies during hospitalization [Text1]: 04/28/24 04/29/24 08:10 19:45 Sodium 143 Potassium 3.3 Chloride 112 H Carbon Dioxide 22 Anion Gap 12 BUN 16 Creatinine 0.65 Estim Creat Clear Calc 130.2 Estimated GFR > 60 Fasting Glucose 113 H Calcium 8.7 D Total Bilirubin 0.2 AST 15 ALT 19 Alkaline Phosphatase 59 Total Protein 6.6 Albumin 3.7 Triglycerides 103 Cholesterol 242 H LDL Cholesterol, Calc 176 H HDL Cholesterol 46 Urine Color Yellow Urine Appearance Clear Urine pH 8.0 Ur Specific Jeannette <= 1.005 Urine Protein Negative Urine Glucose (UA) Negative Urine Ketones Negative Urine Blood Negative Urine Nitrite Negative Ur Leukocyte Esterase Negative DS: Summary Hospital Course Hospital Course: Patient is a 38-year-old female with history schizoaffective disorder, PTSD, opiate use disorder and alcohol use disorder who presented to [facility] via ambulance due to knocking on random doors, screaming and yelling that her soul was lost secondary to cocaine use and medication noncompliance. Per crisis report, patient was uncooperative. Presenting as paranoid and delusional. Making statements such as, my flesh hurts, I am being tortured by Satan. Patient reports that she has been using crack cocaine. She reports poor sleep. patient denied SI/HI. Declined to answer if she was experiencing AH/VH. History of multiple inpatient psychiatric hospitalizations. History of several substance use programs. History of medication noncompliance. During admission assessment, patient presents alert and oriented x3. Declined to participate in admission. She reported not wanting to do admission assessment due to feeling nauseous and wanting to throw up . Patient was offered Zofran PO. Showered. Plan: CV 15 minute safety checks continue home medications Encourage groups Build rapport Encourage medication compliance Discharge planning Keeping to self. patient reports feeling blah today; pt stated, I feel like there is still cocaine in my system. I did it the day I came in here. I haven't been taking my meds for a month . medication compliant while inpatient. denies SI/HI/AH. She reports visual hallucinations but would not elaborate. Continue current tx plan. Showered. attending groups. Patient reports feeling better than yesterday ; pt stated, I'm not longer feeling nauseous or sick. I'm trying to go to groups and not be sad . denies SI/HI/VH/AH. Pt reports she is focused on her sobriety. Continue current tx plan. Identified what will help her to remain in recovery today. Focused on this. Anxious about homelessness. 3 day notice up on 05/05/24. patient is requesting to be discharged on Saturday d/t having a medical appointment. observed pacing unit hallway and listening to music on unit headphones. Pt reports feeling better today; pt stated, I plan on leaving here and staying at a penitentiary. I want to go back to synagogue and stay away from drugs . denies SI/HI/VH/AH. Plan to discharge Saturday if continues to improve. Improving. Continue current management and treatment plan. Patient reports feeling good and ready to leave. Pt reports she plans on going to a penitentiary after discharge. Pt plans on following up with outpatient providers. Status at Discharge Cognitive/behavioral status at discharge: Patient has insight and demonstrates good judgment in terms of wanting to pursue treatment. Patient has a safety plan that includes presenting to the closest ER or calling 911 if feeling unsafe. Functional status at discharge: independent ambulation Overall status at discharge: patient is back to baseline Time Spent with Patient Time attestation: Total time managing care of this patient today _20___ minutes. Time spent: Less than 30 minutes Discharge Plan Discharge Anticipated Discharge Date/Time: 05/04/24 11:00 Patient Disposition: Home, Self-Care Discharge Diagnosis: Schizoaffective d/o, PTSD, opioid use d/o, cocaine use d/o Referrals: Therapy & Psychiatry [Other] - 1 Week (You can present to the clinic above, Saturday through Saturday during the hours of 10am and 12pm, in order to obtain outpatient mental health providers. ) [facility] [Other] - 05/11/24 10:00 am (05-04-24 Your follow up appt has been scheduled with Liya Olmedo on 05-11-24 @ 10am in the [place] office.) Discharge Medications: Continued quetiapine 300 mg tablet 300 mg PO BEDTIME 30 Days Qty: 30 0RF trazodone 50 mg tablet 50 mg PO BEDTIME PRN (Reason: insomnia) 30 Days Qty: 30 0RF sertraline 25 mg tablet 25 mg PO DAILY 30 Days Qty: 30 0RF topiramate 50 mg tablet 50 mg PO BID 30 Days Qty: 60 0RF Changed haloperidol 5 mg tablet 5 mg PO BEDTIME 30 Days Qty: 30 0RF Discontinued nicotine (polacrilex) 2 mg gum 2 mg Q2H PRN (Reason: Smoking Cessation) Discharge Orders: Discharge Order (Routine); Ordered 05/04/24 Ordered By: Yanira Mullins Diet: Regular diet Activity on Discharge: As tolerated Stand Alone Forms: Patient Portal Discharge page, Community Support Print Language: Belarusian Care Plan Goals: Maintain mood and safe behaviors Take medications as prescribed Continue to pursue sobriety Practice coping skills Continue with outpatient providers and reach out to them as needed Health Concerns: Mood stability and behaviors Sobriety Plan of Treatment: Follow up with your PCP, psychiatric provider and other outpatient providers regarding above concerns Take medications as prescribed Assessment: Patient has insight and demonstrates good judgment in terms of wanting to pursue treatment. Patient has a safety plan that includes presenting to the closest ER or calling 911 if feeling unsafe. Discharge Date/Time: 05/04/24 10:13
[2024-05-04] MEDS: Naloxone HCl Nasal TAKE HOME 4 MG SPRAY 8 MG NOSTRILALT (09:31)
== END 2024-05-04 10:13 | disposition home or self-care (01) | DRG 750 ==
LOC: HO.ED 19:10 → HO.PADLT16 04-27 10:18
PROVIDERS: Physician Assistant; Psychiatry & Neurology Psychiatry; Admitting Provider Registered Nurse; Emergency Provider Emergency Medicine; Responsible Provider Registered Nurse; Visit Provider Psychiatry & Neurology Psychiatry
DX: F25.0 Schizoaffective disorder, bipolar type (principal); Z91.148 Patient's other noncompliance with medication regimen for other reason; F11.90 Opioid use, unspecified, uncomplicated; F43.10 Post-traumatic stress disorder, unspecified; F14.10 Cocaine abuse, uncomplicated; Z59.02 Unsheltered homelessness; Z87.891 Personal history of nicotine dependence; Z79.899 Other long term (current) drug therapy
CPT/HCPCS: 36415; 80053; 80061; 80143; 80179; 80307; 81001; 81003; 81025; 85025; 93005; 99285; S9485

== ENCOUNTER → 2024-04-26 18:29 | Outpatient (BNV) | payer MEDICAID, SELFPAY | PROVIDERS: Admitting Provider Registered Nurse; Emergency Provider Emergency Medicine; Responsible Provider Registered Nurse; Visit Provider Internal Medicine Cardiovascular Disease | DX: F14.90 Cocaine use, unspecified, uncomplicated (principal) | CPT/HCPCS: 93010 ==

== ENCOUNTER → 2024-04-27 10:18 | Outpatient (BNV) | payer OTHER, SELFPAY | PROVIDERS: Admitting Provider Registered Nurse; Emergency Provider Emergency Medicine; Responsible Provider Registered Nurse; Visit Provider Registered Nurse | DX: F25.0 Schizoaffective disorder, bipolar type (principal); F14.10 Cocaine abuse, uncomplicated; F11.90 Opioid use, unspecified, uncomplicated; F43.11 Post-traumatic stress disorder, acute | CPT/HCPCS: 99231; 99232 ==

== ENCOUNTER 2024-05-17 10:32 | Emergency (ER) | payer MEDICAID, SELFPAY ==
--- NOTE | ~2024-05-17 | XR_ITS ---
CLINICAL HISTORY: cough Chest Radiographs, 2 views Comparison: None Findings: No cardiomegaly. Normal mediastinal contours. No pneumothorax. No opacity. No pleural effusion. Normal upper abdomen. No acute fracture. Impression: No acute findings. This document has been electronically signed by: Yi Menon MD on 05/17/2024 12:55:00
[2024-05-17 10:43] VITALS: BP 129/84; BP 133/75; PULSE 89; PULSE 94; RESP 20; TEMP 36.2; O2SAT 100; BMI 32.3
--- NOTE | 2024-05-17 10:56 | ED.GENADULT ---
HPI - General Adult General Chief complaint: ETOH/Substance Use Stated complaint: WANTS DETOX,CRACK X1W,COUGH W/BURNING THROAT/CHEST Time Seen by Provider: 05/17/24 10:55 Source: patient and RN notes reviewed Limitations: no limitations History of Present Illness HPI narrative: 38-year-old female who has a history of polysubstance use, schizophrenia, PTSD and bipolar disorder, presents requesting detox from crack cocaine use. patient states she uses crack cocaine regularly, last time smoking was last evening. Tired of using. Currently feels a burning sensation in the back of her throat and chest. She has had a dry, nonproductive cough. She denies any fevers. She is supposed to be on psychiatric medications but states that she has been off them for several weeks because she lost them. She denies any suicidal ideation. She does report homicidal ideation towards anyone if she felt threatened but does not currently feel this towards anyone. She has auditory hallucinations at baseline, no visual hallucinations. she denies any fevers or chills, no unintended weight loss. She has been to detox previously. Related Data Previous Rx's ?Medication ?Instructions ?Recorded haloperidol 5 mg tablet 5 mg PO BEDTIME 30 days #30 tabs 05/04/24 quetiapine 300 mg tablet 300 mg PO BEDTIME 30 days #30 tabs 05/04/24 sertraline 25 mg tablet 25 mg PO DAILY 30 days #30 tabs 05/04/24 topiramate 50 mg tablet 50 mg PO BID 30 days #60 tabs 05/04/24 trazodone 50 mg tablet 50 mg PO BEDTIME PRN insomnia 30 05/04/24 days #30 tabs Allergies Allergy/AdvReac Type Severity Reaction Status Date / Time dog dander [DOG DANDER] Allergy Intermediate ITCHY EYES Verified 05/17/24 10:47 pollen extracts [POLLEN] Allergy Intermediate STUFFY, Verified 05/17/24 10:47 ITCHY EYES Pork/Porcine Containing Allergy Itching Verified 05/17/24 10:47 Products Review of Systems Review of Systems: Yes all other systems are reviewed and are negative Constitutional: Constitutional: Denies headache(s) ENT: Denies dry mouth, Denies headache(s), Denies hoarseness, Denies nasal discharge, Denies sinus pressure and Reports sore throat Respiratory: Respiratory: Reports cough and Denies hemoptysis Neurologic: Denies headache(s) Psychiatric: Psychiatric: Denies hopelessness and Denies paranoia [facility] Past Medical History Medical History Opioid use disorder Generalized abdominal discomfort Medical clearance for psychiatric admission PTSD (post-traumatic stress disorder) Prediabetes Oligomenorrhea Routine medical exam Anxiety Pseudoseizures Bipolar 1 disorder, manic, moderate Social History Social History Household Members: None Household Members Other:: says has spouse but unhoused Housing: Homeless Do you presently have visiting nurse or other home services: No Unable to assess alcohol history related to: Refusing to respond Alcohol intake: former Patient Tobacco Use Status: Former Tobacco user Tobacco use type: Cigarette Cigarette Packs Per Day: 1 Cigarettes Per Day: 20.0 Years Smoked: Many' e-Cigarette/Vaping Use: Former Use Second Hand Smoke Exposure: No Use of substances other than those prescribed or required for medical reasons: Yes Substance Use Type: Crack/Cocaine Substance Use Frequency: Chronic Longstanding Substance Use Frequency Other:: every day Last Used Substance: Days (ago) Any prior treatment program specific to substance use: Yes Advance Directives: No Advance Directives Information Provided: No service: No Sexual orientation: Straight/Heterosexual Physical Exam ED Vital Signs: Vital Signs - 24 hr 05/17/24 15:25 05/17/24 22:32 05/18/24 07:00 Temperature 98.6 F 97.7 F 98.1 F Pulse Rate 86 93 91 Respiratory Rate 20 18 16 Blood Pressure 139/63 123/73 123/67 Pulse Oximetry 95 99 100 Oxygen Delivery Method Room Air Room Air Room Air BMI result Body Mass Index 32.3 Const General: no acute distress HENMT Other: Pupils are equal round and reactive to light. Speech is clear. Oropharynx is moist. No tongue elevation or edema. No erythema. No exudate Resp Auscultation: clear to auscultation bilaterally and no wheezes Extrem Other: no calf tenderness or pedal edema Psych Appearance: disheveled Attitude: cooperative Course Course Course Narrative: May 17, 2024 1:15 p.m. chest x-ray is without any acute process. Labs are also unremarkable. Viral swabs are negative. Patient has been seen by the care team, disposition is pending. 3:00 p.m. patient is resting comfortably at this time. She has not provided a urine for tox screening. 4:30 p.m. patient resting comfortably at this time. Reassessment pending. 6:35 p.m. patient resting comfortably at this time. She is in physician observation until reassessed by the care team for detox. Urine tox has returned. Care team is unavailable at this time. Patient will remain for reassessment in the ED. She is hemodynamically stable and afebrile and without evidence of any withdrawal. She is not suicidal or homicidal. If upon further reassessment or patient request, patient may be discharged home otherwise may remain for care team evaluation and possible detox placement in the morning. 8:40 p.m. Patient resting comfortably at this time pending reassessment by the care team. Signed out in stable condition to Grace Tidwell PA-C. Reevaluation(s) Reevaluation #1: observation care revealed that the patient does meet psychiatric necessity for hospitalization. final disposition discussed with the patient. The patient completed observation care at 1228pm. . 05/18/24 PAULIE 1228pm Medical Decision Making Medical Decision Making [facility] Narrative: 38-year-old female who has a history of crack cocaine use, bipolar disorder schizophrenia and PTSD, requesting detox. Currently also complaining of a cough. She is afebrile and hemodynamically stable. Check chest x-ray and viral swab. Check basic labs and evaluation by team. Differential Diagnosis Differential Diagnoses: The differential diagnosis associated with the presentation includes Pneumonia Pneumonitis Viral syndrome Crack cocaine use Lab Data [facility] Lab Attestation statement: I reviewed the patient's lab results. 05/17/24 11:32 05/17/24 11:32 Labs: Lab Results 05/17/24 05/17/24 05/17/24 Range/Units 11:09 11:32 17:38 WBC 5.9 (4.8-10.8) X10*3/uL RBC 5.05 (4.20-5.50) X10*6/uL Hgb 12.8 (12.0-16.0) g/dl Hct 40.5 (37.0-47.0) % MCV 80.2 (80.0-98.0) fL MCH 25.3 L (27.0-33.0) pg MCHC 31.6 (31.0-35.0) g/dl RDW 16.6 H (11.0-16.0) % Plt Count 289 (160-400) X10*3/uL MPV 10.7 (9.4-12.3) fL Immature Gran % (Auto) 0.5 H (0.0-0.4) % Neut % (Auto) 59.5 (45-73) % Lymph % (Auto) 30.8 (20-40) % Ogle % (Auto) 5.8 (2-11) % Eos % (Auto) 2.4 (0-4) % Baso % (Auto) 1.0 (0-2) % Lymph # (Auto) 1.8 (1.2-4.9) X10*3/uL Ogle # (Auto) 0.3 (0.1-1.2) X10*3/uL Eos # (Auto) 0.1 (0.0-0.4) X10*3/uL Baso # (Auto) 0.1 (0.0-0.2) X10*3/uL Abs Immat Gran (auto) 0.03 (0.00-0.03) X10*3/uL Absolute Neuts (auto) 3.5 (2.0-8.3) x10*3/uL Absolute Nucleated RBC 0.000 (0.0-0.012) X10*3/uL Nucleated RBC % (auto) 0.0 (0.0-0.2) /100WBC Sodium 143 (135-145) mmol/L Potassium 3.6 (3.3-5.1) mmol/L Chloride 107 (96-108) mmol/L Carbon Dioxide 24 (22-29) mmol/L Anion Gap 16 (12-20) BUN 13 (9-16) mg/dL Creatinine 0.67 (0.5-1.4) mg/dL Estim Creat Clear Calc 127.8 Estimated GFR > 60 Random Glucose 125 H (60-115) mg/dL Calcium 9.7 D (8.4-10.2) mg/dL Total Bilirubin 0.4 (0.0-1.0) mg/dL AST 27 (5-31) U/L ALT 25 (0-31) U/L Alkaline Phosphatase 78 (39-117) U/L Total Protein 7.5 (6.5-8.0) g/dL Albumin 4.3 (3.5-5.0) g/dL Urine Opiates Screen Not Detected (Not Detect) Ur Buprenorphine Scrn Not Detected (Not Detect) ng/mL Ur Oxycodone Screen Not Detected (Not Detect) ng/mL Urine Methadone Screen Not Detected (Not Detect) ng/mL Urine Fentanyl Screen POSITIVE H (Not Detect) Ur Barbiturates Screen Not Detected (Not Detect) Ur Phencyclidine Scrn Not Detected (Not Detect) Ur Amphetamines Screen Not Detected (Not Detect) U Benzodiazepines Scrn Not Detected (Not Detect) Urine Cocaine Screen POSITIVE H (Not Detect) U Marijuana (THC) Screen Not Detected (Not Detect) Ethyl Alcohol < 10 mg/dL Influenza Type A (PCR) NEGATIVE (Negative) Influenza Type B (PCR) NEGATIVE (Negative) RSV RNA Qual (PCR) NEGATIVE (Negative) SARS-CoV-2 RNA (RT-PCR) NEGATIVE (Negative) Radiology Impression Discussion of test interpretation with radiology: I have reviewed the radiologist's reading. Radiologist Impression: [place] [id number] XRay Report Signed Patient: Leah Chi MR#: [id number] : 1985 Acct:[id number] Age/Sex: 38 / F ADM Date: 05/17/24 Loc: .ED Attending Dr: Ordering Physician: Rob Welch Date of Service: 05/17/24 Procedure(s): XR chest 2V Accession Number(s): [id number] cc: Physician,Unknown ; Rob Welch~ CLINICAL HISTORY: cough Chest Radiographs, 2 views Comparison: None Findings: No cardiomegaly. Normal mediastinal contours. No pneumothorax. No opacity. No pleural effusion. Normal upper abdomen. No acute fracture. Impression: No acute findings. This document has been electronically signed by: Yi Menon MD on 05/17/2024 12:55:00 Dictated By: Yi Gardner MD Signed By: <Electronically signed by Yi Gardner MD in OV> 05/17/24 1255 DD/ 1255 TD/TT: 05/17/24 1255 Reclamation Worker: Discharge Plan Discharge Clinical Impression: Substance abuse Patient Disposition: Home, Self-Care Instructions: Polysubstance Abuse (ED) Additional Instructions: You were seen in our Emergency Department today for treatment of a behavioral health issue. It is important after your visit that you follow up with either your behavioral health provider or a primary care doctor within 7 days.? If you have trouble finding a therapist you can reach out to [address] [phone] [facility] [employer] [facility] can be reached 7 days a week 24 hours a day.? Call 988 to speak with someone.? Return for any worsening symptoms or concerns such as thoughts of self harm or harm to others. Please call 911 if you feel your mental health is worsening.? Prescriptions: No Action haloperidol 5 mg tablet 5 mg PO BEDTIME 30 Days Qty: 30 0RF quetiapine 300 mg tablet 300 mg PO BEDTIME 30 Days Qty: 30 0RF trazodone 50 mg tablet 50 mg PO BEDTIME PRN (Reason: insomnia) 30 Days Qty: 30 0RF sertraline 25 mg tablet 25 mg PO DAILY 30 Days Qty: 30 0RF topiramate 50 mg tablet 50 mg PO BID 30 Days Qty: 60 0RF Print Language: Gambian
--- OUTSIDE RECORDS SUMMARY | 2024-05-17 10:57 | XMS_ITS | Clinical Summary ---
Author Organization [facility] Address [address] [place] [address] Phone Care Team Providers Care Contract Sheltered Workshop Supervisor Name Role Phone Edwige Chang MD Primary Care Provider [phone] Allergies No known active allergies Medications fluticasone [...] Diabetes: Annual Retina Eye Exam 1994 Hepatitis B Vaccines (1 of 3 - [...] on patient's age to complete this topic Hepatitis A Vaccines Aged Out No long er eligible based on patient's age to complete [...] LAB CHEMISTRY METHOD 12/24/2023 2:15 PM EST [facility] Potassium 3.9 3.5 - 5.5 mmol/L LAB CHEMISTRY METHOD 12/24/2023 2:15 PM EST [facility] Chloride 105 96 - 110 mmol/L LAB CHEMISTRY METHOD 12/24/2023 2:15 PM EST [facility] CO2 24 21 - 32 mmol/L LAB CHEMISTRY METHOD 12/24/2023 2:15 PM EST [facility] Anion Gap 9 3 - 11 LAB CHEMISTRY METHOD 12/24/2023 2:15 PM [facility] Glucose 111(H) 70 - 100 mg/dL LAB CHEMISTRY METHOD 12/24/2023 2:15 PM [facility] BUN 13 5 - 25 mg/dL LAB CHEMISTRY METHOD 12/24/2023 2:15 PM [facility] Creatinine 0.81 0.50 - 1.10 mg/dL LAB CHEMISTRY METHOD 12/24/2023 2:15 PM [facility] eGFR 95 >=60 mL/min/1. 73m2 LAB CHEMISTRY METHOD 12/24/2023 2:15 PM [facility] Comment:Calculation based on the??Chronic Kidney Disease Epidemiology Collaboration (CKD-EPI) equation refit??without adjustment for race. BUN/Creatinine Ratio 16.0 LAB CHEMISTRY METHOD 12/24/2023 2:15 PM [facility] Calcium 10.1 8.5 - 10.5 mg/dL LAB CHEMISTRY METHOD 12/24/2023 2:15 PM [facility] AST (SGOT) 20 10 - 42 unit/L LAB CHEMISTRY METHOD 12/24/2023 2:15 PM [facility] ALT (SGPT) 25 10 - 60 unit/L LAB CHEMISTRY METHOD 12/24/2023 2:15 PM [facility] Alkaline Phosphatase 79 42 - 121 unit/L LAB CHEMISTRY METHOD 12/24/2023 2:15 PM [facility] Total Protein 7.8 6.0 - 8.0 g/dL LAB CHEMISTRY METHOD 12/24/2023 2:15 PM [facility] Albumin 4.2 3.2 - 5.0 g/dL LAB CHEMISTRY METHOD 12/24/2023 2:15 PM [facility] Total Bilirubin 0.4 0.0 - 1.4 mg/dL LAB CHEMISTRY METHOD 12/24/2023 2:15 PM EST [facility] Blood Venous blood specimen / Unknown Venipuncture / Unknown 12/24/2023 1:21 PM EST 12/24/2023 1:43 PM EST us Francis Cheung DO LAB BLOOD ORDERABLES Final Result [facility] [address] [place] [address], from Last 3 Months or Most Recently Relevant to Health Maintenance Insurance MEDICAID - [place] Care Teams Contract Sheltered Workshop Supervisor Relationship Specialty Start Date End Date Edwige Chang MD PCP - General Family Medicine 12/24/23
--- NOTE | 2024-05-17 11:10 | PC.NURSE ---
Report received from ELVI Bhardwaj. Taken over care at this time.
[2024-05-17 11:36] LABS: MANUAL DIFF FLAG NO
[2024-05-17 11:50] LABS: Influenza A PCR NEGATIVE (Negative); Influenza B PCR NEGATIVE (Negative); Resp Syncy Virus RNA Qual PCR NEGATIVE (Negative); SARS COV2 PCR INHOUSE NEGATIVE (Negative)
[2024-05-17 11:55] LABS: Ethanol < 10 mg/dL
[2024-05-17 11:58] LABS: Basophils Absolute Auto 0.1 X10*3/uL (0.0-0.2); Eosinophils Absolute Auto 0.1 X10*3/uL (0.0-0.4); Eosinophils Percent Auto 2.4 % (0-4); Hematocrit 40.5 % (37.0-47.0); Hemoglobin 12.8 g/dl (12.0-16.0); Imm Gran Abs Auto 0.03 X10*3/uL (0.00-0.03); Imm Gran Pct Auto 0.5 % (0.0-0.4); Lymphocytes Absolute Auto 1.8 X10*3/uL (1.2-4.9); Lymphocytes Percent Auto 30.8 % (20-40); Mean Corpuscular HGB Conc 31.6 g/dl (31.0-35.0); Mean Corpuscular Hemoglobin 25.3 pg (27.0-33.0); Mean Corpuscular Volume 80.2 fL (80.0-98.0); Mean Platelet Volume 10.7 fL (9.4-12.3); Monocytes Absolute Auto 0.3 X10*3/uL (0.1-1.2); Monocytes Percent Auto 5.8 % (2-11); Neutrophils Absolute Auto 3.5 x10*3/uL (2.0-8.3); Neutrophils Percent Auto 59.5 % (45-73); Platelet Count 289 X10*3/uL (160-400); Red Blood Count 5.05 X10*6/uL (4.20-5.50); Red Cell Distribution Width 16.6 % (11.0-16.0); White Blood Count 5.9 X10*3/uL (4.8-10.8)
--- NOTE | 2024-05-17 12:00 | PC.NURSE ---
Pt. resting with eyes closed, no s/s of distress or pain. Informed pt. still needing urine sample when capable of.
[2024-05-17 12:06] LABS: Alanine Aminotransferase 25 U/L (0-31); Albumin Level 4.3 g/dL (3.5-5.0); Alkaline Phosphatase 78 U/L (39-117); Anion Gap 16 (12-20); Aspartate Amino Transferase 27 U/L (5-31); Bilirubin Total 0.4 mg/dL (0.0-1.0); Blood Urea Nitrogen 13 mg/dL (9-16); Calcium 9.7 mg/dL (8.4-10.2); Carbon Dioxide 24 mmol/L (22-29); Chloride 107 mmol/L (96-108); Creatinine Clr Calc Pharmacy 127.8; Estimated Glomerular Filt Rate > 60; Glucose Random 125 mg/dL (60-115); Potassium 3.6 mmol/L (3.3-5.1); Sodium 143 mmol/L (135-145); Total Protein 7.5 g/dL (6.5-8.0)
--- NOTE | 2024-05-17 14:48 | MHC.RECOVRN ---
Met with Leah in ED22[facility] after medical clearance and after receiving recovery consult to discuss ongoing substance use. Upon meeting with Leah she was tearful stating I'm here because I am sick of using, I need detox, I can't stop on my own . Pt reported using about $100 worth of crack cocaine daily via inhalation (smoking) for the past 2 weeks. She stated my throat hurts, and I've been coughing, I think I burned my throat from smoking crack . Prior to this pt was in the [facility] staying in a tent as she is homeless. She denied any other substance use or alcohol use. She is detox seeking, willing to go to either [facility] or [facility]. She has a history of being at [facility] and [facility] for substance use treatment that lasted 3 months. She states she was recently inpatient psych on M5 and M3 [place] [facility] [place] had the urge to leave when she received social security money as she wanted to go use. She denies a history of overdose. Although pt is reporting some AH/VH at baseline she currently does not appear to be disorganized or responding to internal stimuli. She denied SI/HI (no ideation, no plan, no intent) but stated she hears self-affirmation voices at base line telling her to stop using and to defend herself . She also stated she sometimes sees dark auras in others. Leah has had multiple inpatient psych admissions but does not believe she needs inpatient psych at this time. She denies being in a mental health crisis at the moment- states she just wants to stop using crack cocaine. She agreed for referrals to be sent on her behalf. Utox required for [facility] referrals. Pt currently is sleeping deeply, tried to wake up patient a couple of times but she would go back to sleep. Discussed with ED RN to encourage pt to provide urine sample nicholas. Discussed with provider NEEL Huerta as well as ALANNAH Chino.
--- NOTE | 2024-05-17 15:21 | MHC.EDTECH ---
pt educated that we need a urine sample, told to let someone know when she is going and we will provide with a cup. pt is ambulatory and RN is aware
[2024-05-17 15:25] VITALS: BP 139/63; PULSE 86; RESP 20; TEMP 37; O2SAT 95
[2024-05-17 18:07] LABS: Amphetamine Screen Urine Not Detected (Not Detect); Barbiturates, Urine Not Detected (Not Detect); Benzodiazepines Screen Urine Not Detected (Not Detect); Buprenorphine Scr Not Detected (Not Detect); Cannabinoid Screen Urine Not Detected (Not Detect); Cocaine Screen Urine POSITIVE (Not Detect); Fentanyl, urine POSITIVE (Not Detect); Methadone Screen, Urine Not Detected (Not Detect); Opiate Screen Urine Not Detected (Not Detect); Oxycodone Screen Urine Not Detected (Not Detect); Phencyclidine Screen Urine Not Detected (Not Detect)
--- NOTE | 2024-05-17 19:00 | PC.NURSE ---
Pt. given sandwich and cranberry juice x 3. Pt. cooperative and denies c/o pain or distress.
[2024-05-17 22:32] VITALS: BP 123/73; PULSE 93; RESP 18; TEMP 36.5; O2SAT 99
--- NOTE | 2024-05-17 23:06 | PC.NURSE ---
Report given to ELVI Chiang.
[2024-05-18 07:00] VITALS: BP 123/67; PULSE 91; RESP 16; TEMP 36.7; O2SAT 100
--- NOTE | 2024-05-18 08:43 | MHC.RECOVRN ---
Pts referral sent to [facility], currently under review. RN aware.
--- NOTE | 2024-05-18 08:56 | PC.NURSE ---
Pt sleeping at this time. Pt was alert and oriented this morning, ate her full breakfast, CIWA 0. No new complaints. per recovery, referral is in to [facility].
--- NOTE | 2024-05-18 09:52 | MHC.RECOVRN ---
Addendum entered by Aubrie Ivory 05/18/24 09:57: Discussed with Basia Thomason and Elsa Espinoza, plan for CARE Team to meet with patient. CARE Team aware. Original Note: Pt denied from [facility] due to behavioral health concerns.
[2024-05-18 12:50] VITALS: BP 140/72; PULSE 84; RESP 16; TEMP 36.4; O2SAT 98
--- NOTE | 2024-05-18 12:51 | PC.NURSE ---
pt provided with lyft transportation by care team
--- NOTE | 2024-05-18 13:46 | MHC.CARE ---
Pt does not meet the criteria for IPLOC. Pt will be discharged to the [facility] for a voluntary Section 35. Provider in agreement.
== END 2024-05-18 12:52 | disposition home or self-care (01) ==
PROVIDERS: Physician Assistant; Emergency Provider Emergency Medicine
DX: F19.10 Other psychoactive substance abuse, uncomplicated (principal); F25.0 Schizoaffective disorder, bipolar type; F41.9 Anxiety disorder, unspecified; F43.12 Post-traumatic stress disorder, chronic; Z87.891 Personal history of nicotine dependence; Z03.818 Encounter for observation for suspected exposure to other biological agents ruled out; Z79.899 Other long term (current) drug therapy
CPT/HCPCS: 0241U; 36415; 71046; 80053; 80307; 85025; 99284; S9485

== ENCOUNTER → 2024-05-17 11:04 | Outpatient (BNV) | payer MEDICAID, SELFPAY | PROVIDERS: Emergency Provider Emergency Medicine; Visit Provider Radiology Diagnostic Radiology | DX: R05.9 Cough, unspecified (principal) | CPT/HCPCS: 71046 ==

== ENCOUNTER 2024-05-25 07:08 | Emergency (ER) | payer MEDICAID, SELFPAY ==
[2024-05-25 07:10] VITALS: BP 111/80; PULSE 97; RESP 18; TEMP 35.6; O2SAT 96; BMI 33.1
--- NOTE | 2024-05-25 07:46 | ED.PSYCH ---
HPI - Psych General Chief Complaint: ETOH/Substance Use Stated Complaint: Detox Feet Issues Time Seen by Provider: 05/25/24 07:28 Source: patient and old records reviewed Mode of arrival: ambulatory Limitations: no limitations History of Present Illness ED Provider: PAULIE AGARWAL Narrative: 38 yo female with PMH of opiate use disorder, PTSD, schizoaffective, asthma, anxiety who uses crack cocaine, ETOH, heroin and has been on the streets. She notes her feet have been sore from walking all week and she has white patches on the bottom. Her feet have been getting wet. No other complaints, no SI/HI. She states she wants to go to detox. She declines any MAT therapy in the ED. MD complaint: substance abuse Onset (ago): year(s) Duration: intermittent History of same: Yes Relieving factors: none Exacerbating factors: drug use Context: recent drug abuse, not taking psychiatric medications and significant life stressor Associated psychiatric symptoms: none Associated symptoms: other (foot pain) Treatments prior to arrival: none Related Data Previous Rx's ?Medication ?Instructions ?Recorded haloperidol 5 mg tablet 5 mg PO BEDTIME 30 days #30 tabs 05/04/24 quetiapine 300 mg tablet 300 mg PO BEDTIME 30 days #30 tabs 05/04/24 sertraline 25 mg tablet 25 mg PO DAILY 30 days #30 tabs 05/04/24 topiramate 50 mg tablet 50 mg PO BID 30 days #60 tabs 05/04/24 trazodone 50 mg tablet 50 mg PO BEDTIME PRN insomnia 30 05/04/24 days #30 tabs cephalexin 500 mg capsule 500 mg PO QID 7 days #28 caps 05/25/24 Allergies Allergy/AdvReac Type Severity Reaction Status Date / Time dog dander [DOG DANDER] Allergy Intermediate ITCHY EYES Verified 05/25/24 07:13 pollen extracts [POLLEN] Allergy Intermediate STUFFY, Verified 05/25/24 07:13 ITCHY EYES Pork/Porcine Containing Allergy Itching Verified 05/25/24 07:13 Products Review of Systems Review of Systems: Constitutional : No Fever, No Chills ENT/Mouth : No sore throat, No Rhinorrhea Eyes: No Eye Pain, No Swelling, No Redness Cardiovascular : No Chest Pain, No SOB Respiratory : No Cough, No Sputum Gastrointestinal : No Nausea, No Vomiting, No Diarrhea, No abdominal Pain Genitourinary : No Dysuria, No Hematuria Musculoskeletal : No joint pain, No Myalgias, No Joint Swelling Skin : pos Skin Lesions, positive skin rash Neuro : No Weakness, No Numbness, No Headache Psych : No Anxiety, No Depression All other systems reviewed and are negative [facility] Past Medical History Attestation statement: The following information was validated with the patient. Source: old records reviewed Medical History Opioid use disorder Generalized abdominal discomfort Medical clearance for psychiatric admission PTSD (post-traumatic stress disorder) Prediabetes Oligomenorrhea Routine medical exam Anxiety Pseudoseizures Bipolar 1 disorder, manic, moderate Social History Social History Household Members: None Household Members Other:: says has spouse but unhoused Housing: Homeless Do you presently have visiting nurse or other home services: No Unable to assess alcohol history related to: Refusing to respond Alcohol intake: former Patient Tobacco Use Status: Former Tobacco user Tobacco use type: Cigarette Cigarette Packs Per Day: 1 Cigarettes Per Day: 20.0 Years Smoked: Many' e-Cigarette/Vaping Use: Former Use Second Hand Smoke Exposure: No Substance Use Type: Crack/Cocaine Advance Directives: No Advance Directives Information Provided: Yes service: No Sexual orientation: Straight/Heterosexual Physical Exam Vital Signs: Vital Signs: Last Vital Signs Temp 96.0 F L 05/25/24 07:10 Pulse 97 05/25/24 07:10 Resp 18 05/25/24 07:10 BP 111/80 05/25/24 07:10 Pulse Ox 96 05/25/24 07:10 O2 Del Method Room Air 05/25/24 07:10 BMI result Body Mass Index 33.1 Appearance: Alert. Oriented X3. No acute distress. Eyes: Pupils equal, round and reactive to light. ENT: Pharynx normal. Neck: Normal inspection. Neck supple. CVS: Normal heart rate and rhythm. Pulses normal. Respiratory: No respiratory distress. Breath sounds normal. Abdomen: Soft and nontender. Skin: Skin warm and dry. Normal skin color. Normal skin turgor. Extremities: No lower extremity edema. pads of feet are white and calloused her feet are warm and well perfused SILT intact 2+ pulses DP/PT she has ttp along the white areas they are now dry, no fluctuance felt, on L foot lateral aspect small area of redness and warmth Neuro: Oriented X 3. No motor deficit. No sensory deficit. CN2-12 intact Course Course Course Narrative: Time: 08:56 Date: 05/25/24 Provider: Marysol Smith DO Physician observation ended at 856am. Patient has been cleared for discharge by the recovery team. Will follow up as an outpatient. start on cephalexin can call detox centers from home Medical Decision Making Medical Decision Making MDM Narrative: 38 yo female with PMH of opiate use disorder, PTSD, schizoaffective, asthma, anxiety here with c/o homelessness, addiction issues, foot pain at this time the foot pain is likely related to walking/exposures - there is a small area of redness I am going to start on cephalexin, obtain labs and refer to recovery team - she denies SI/HI Differential Diagnosis Differential Diagnoses: The differential diagnosis associated with the presentation includes drug abuse, cellulitis, homelessness Admission/Observation Consideration of admission/observation: Escalation of care including admission/observation considered physician observation started at 757am pending recover team Consult Healthcare Provider Management of the patient was discussed with: Behavioral Health Provider Lab Data [facility] Lab Attestation statement: I reviewed the patient's lab results. External Record Review External record reviewed: Outpatient record Social Determinants Patient?s care significantly limited by Social Determinants of Health including: Inadequate housing, Low income, Alcoholism and drug addiction in family and Problems related to primary support group Discharge Plan Discharge Clinical Impression: Polysubstance abuse, Schizoaffective disorder, bipolar type Cellulitis Qualifiers: Site of cellulitis: extremity Site of cellulitis of extremity: lower extremity Laterality: left Qualified Code(s): L03.116 - Cellulitis of left lower limb Patient Disposition: Home, Self-Care Instructions: Cellulitis (ED), Polysubstance Abuse (ED) Additional Instructions: Opiate use disorder You were seen in our Emergency Department today for treatment of opiate use disorder. You may have been dosed with medication for opiate use disorder (MOUD) in the form of suboxone or methadone. You may experience feeling some withdrawal symptoms and this is normal. The? dose in the Emergency Department is a starting dose and meant to be titrated up once you follow up with a clinic. Please do not feel discouraged, it is a process. The nurse has reviewed with you where to follow up and what information to bring with you, to continue treatment. You also may have been given naloxone (narcan) to take home with you. This medication is used to potentially treat opiate overdose. If you decide you want to stop or cut down on how much you?re using, you can call or walk into our outpatient Addiction Treatment office: [facility] (M-F 9am-5p) [address] [place] [address], [address] [phone] You may have been provided with safer injection?items, please take time to take care of YOU and your health. Use new supplies whenever possible to lessen the chances of infections and other illnesses.? ?If you need more supplies, please go [facility],? [address] [place] [address] OR you can call or text to coordinate delivery of safer supplies. You were also provided a list of several treatment providers in the area.? If you experience any worsening symptoms you cannot control please return to the ED or call 911. Please follow up at your next appointment. Things to look out for are fevers, chest pain, shortness of breath, severe pain, dizziness, fainting or any other concerns. please take antibiotics return for any worsening symptoms or concerns Prescriptions: New cephalexin 500 mg capsule 500 mg PO QID 7 Days Qty: 28 0RF No Action haloperidol 5 mg tablet 5 mg PO BEDTIME 30 Days Qty: 30 0RF quetiapine 300 mg tablet 300 mg PO BEDTIME 30 Days Qty: 30 0RF trazodone 50 mg tablet 50 mg PO BEDTIME PRN (Reason: insomnia) 30 Days Qty: 30 0RF sertraline 25 mg tablet 25 mg PO DAILY 30 Days Qty: 30 0RF topiramate 50 mg tablet 50 mg PO BID 30 Days Qty: 60 0RF Print Language: Mauritian
--- OUTSIDE RECORDS SUMMARY | 2024-05-25 07:52 | XMS_ITS | Encounter Summary ---
Author Organization [employer] Address [address] [facility] 7t [place] [address] Care Team Providers Care Chef De Partie Name Role Phone HollandPreeti FRONT DESK AGENT Unavailable Unavailable Edwige Chang MD Primary Care Provider [phone] Juana Huggins Unavailable Unavailable Encounter Details Date Type Department Care Team (Late st Contact Info) Description 09/16/2023 Orders Only [facility] Information Management [address] [place] [address] Edwige Chang MD [address] [place] [address] Social History Tobacco Use Types Packs/Day Years [...] as of this encounter Plan of Treatment Not on file documented as of this encounter Procedures Procedure Name Priority Date/Time Associated Diagnosis Comments CT HEAD WO CONTRAST Routine 09/08/2023 3:[address] CERVICAL SPINE WO CONTRAST Routine 09/08/2023 3:10 PM EDT documented in this encounter Results * CT HEAD WO CONTRAST (09/08/2023 3:11 PM EDT) Anatomical Region Laterality Modality Computed Tomogra phy Edwige Chang MD IMG CT PROCEDURES Final Result * CT Cervical Spine w/o Contrast (09/08/2023 3:10 PM EDT) Anatomical Region Laterality Modality Spine, C-spine Computed Tomogra phy Edwige Chang MD IM CT PROCEDURES Final Result documented in this encounter Visit Diagnoses Not on filedocumented in this encounter Additional Health Concerns Assessment Noted Time PHQ-9 Depression Total Score: 16 024 10:34 AM EDT documented as of this encounter Care Teams Chef De Partie Relationship Specialty Start Date End Date Edwige Chang MD [address] [place] [address] PCP - General Family Medicine 01/17/22 Preeti Holland FNP Family Medicine 12/08/21 Juana Huggins Health Navigator Case Management 02/06/22 documented as of this encounter
--- OUTSIDE RECORDS SUMMARY | 2024-05-25 07:52 | XMS_ITS | Encounter Summary ---
Author Organization [employer] Address [address] [facility] [address] [place] [address] Care Team Providers Care Perforator Operator Name Role Phone HollandPreeti REBAR WORKER Unavailable Unavailable Edwige Chang MD Primary Care Provider [phone] Juana Huggins Unavailable Unavailable Encounter Details Date Type Department Care Team (Late st Contact Info) Description 05/04/2024 Orders Only [facility] Information Management [address] [place] [address] Edwige Chang MD [address] [place] [address] Social History Tobacco Use Types Packs/Day Years [...] Procedure Name Priority Date/Time Associated Diagnosis Comments ECG 12-LEAD Routine 04/26/2024 11:01 AM EDT documented in this encounter Results * ECG 12 lead (04/26/2024 11:01 AM EDT) Edwige Chang MD ECG ORDERABLES Final Result documented in this encounter Visit Diagnoses Not on filedocumented in this encounter Additional Health Concerns Assessment Noted Time PHQ-9 Depression Total Score: 16 024 10:34 AM EDT documented as of this encounter Care Teams Perforator Operator Relationship Specialty Start Date End Date Edwige Chang MD [address] [place] [address] PCP - General Family Medicine 01/17/22 Preeti Holland FNP Family Medicine 12/08/21 Juana Huggins Health Navigator Case Management 02/06/22 documented as of this encounter
--- OUTSIDE RECORDS SUMMARY | 2024-05-25 07:52 | XMS_ITS | Encounter Summary ---
Author Organization [employer] [facility] Address [address] [place] [address] 7t [place] [address] Care Team Providers Care Hat Mender Name Role Phone Preeti Holland Unavailable Unavailable Edwige Chang MD Primary Care Provider [phone] Juana Huggins Unavailable Unavailable Reason for Visit * Reason Comments Med Refill Encounter Details Date Type Department Care Team (Late st Contact Info) Description 02/21/2022 Refill [facility] MED[facility] [address] [place] [address] Edwige Chang MD [address] [place] [address] Medication refill Social History Tobacco Use Types [...] on file documented as of this encounter Visit Diagnoses Diagnosis Medication refill Issue of repeat prescriptions documented in this encounter Care Teams Hat Mender Relationship Specialty Start Date End Date Edwige Chang MD [address] [place] [address] PCP - General Family Medicine 01/17/22 Preeti Holland FNP Family Medicine 12/08/21 Juana Huggins Health Navigator Case Management 02/06/22 documented as of this encounter
--- OUTSIDE RECORDS SUMMARY | 2024-05-25 07:52 | XMS_ITS | Clinical Summary ---
Author Organization [employer] Address [address] 7[address] [place] [address] Care Team Providers Care Terry Cloth Cutter Hand Name Role Phone Preeti Holland Unavailable Unavailable Edwige Chang MD Primary Care Provider [phone] Juana Huggins Unavailable Unavailable Allergies Active Allergy [...] mouth at bedtime. 30 tablet 5 11/15/2023 Active Ventolin HFA 108 (90 Base) MCG/ACT inhalerIndicati ons:Cocaine use disorder, mild, in early remission (CMS/HCC) Inhale 2 puffs every 6 (six) hours if needed for wheezing. 18 g 11 11/15/2023 Active gabapentin (Neurontin) 300 MG capsuleIndicati ons:Bipolar affective disorder, current episode manic with psychotic symptoms (CMS/HCC) Take 1 capsule (300 mg) by mouth 3 times daily. 90 capsule 11/15/2023 Active LORazepam (Ativan) 2 MG tabletIndicatio ns:Bipolar [...] for 14 days. 28 tablet 01/21/2024 Active Active Problems Problem Noted Date Diagnosed Date [...] 04/10/2022 Psychosis 04/10/2022 Schizoaffective disorder, bipolar type 02/28/202 3 Housing instability after recent homelessness Assessment & [...] reversed. Makes statements like I got at [employer] . I tried to give 2 weeks [...] Encounters Date Type Department Care Team Description 05/04/2024 Orders Only [facility] Information Management [address] [place] [address] Edwige Chang MD 04/24/2024 Population Health Risk Score Community Care [facility] (C[facility]) Department [address] [id number] Provider, Population Health Generic 04/23/2024 Telephone [facility] MEDICAL [address] [place], [place] [id number] Edwige Chang MD hospital discharge, obtain medical records 04/14/2024 Telephone [facility] Information Management [address] [place] [address] Edwige Chang MD ER Follow-up 04/06/2024 Orders Only [facility] Information [facility] [address] [place] [address] Edwige Chang MD 03/24/2024 Telephone [facility] MEDICAL [address] [place] [address] Edwige Chang MD pt1 03/05/2024 11:30 AM EST Office Visit [facility] [address] [place] [address] Harvey Vazquez Non-restorable tooth (Primary Dx) 03/04/2024 Telephone [facility] Information Management [address] [place] [address] Edwige Chang MD Hospital Follow-up from Last 3 Months Immunizations Name Administration [...] 06/28/2023 10:26 AM EDT Plan of Treatment Health Maintenance Due Date [...] Dental Prophylaxis 01/19/2022 07/19/2021, 02/08/2021 COVID-19 Vaccine (2023-2 5 season) 2023 05/09/2022, 04/14/2020, 03/14/2020 Depression Monitoring 12/29/2023 06/28/2023 , 06/28/2023 Dental X-Ray: Full Mouth 02/10/2024 02/08/2021 [...] ECG 12-LEAD Routine 04/26/2024 11:01 AM EDT LIPID PANEL, STANDARD Routine 03/31/2024 4:22 PM [...] Recently Relevant to Health Maintenance Results * ECG 12 lead (04/26/2024 11:01 AM EDT) Edwige Chang MD ECG ORDERABLES Final Result * Lipid Panel, Standard (03/31/2024 4:22 PM EST) Blood Venous blood specimen / Unknown Edwgie Chang MD LAB BLOOD ORDERABLES Final Res ult * HEPATITIS C AB W/REFL TO HCV RNA, QN, PCR (10/31/2021 10:50 AM EDT) HEPATITIS C ANTIBODY NON-REACT LAMINE NON-REACT LAMINE [facility] INDEX 0.06 <1.00 [facility] Comment: ?? HCV antibody was non-reactive. There is no laboratory ?? evidence of HCV infection. ?? In most cases, no further action is required. However, if recent HCV exposure is suspected, a test for HCV RNA (test code 50988) is suggested. ?? For additional information please refer to http://education.Verisim/faq/DQB18x7 (This link is being provided for informational/ educational purposes only.) ?? 10/31/2021 10:5 0 AM EDT Levar Herrera MD HISTORICAL/NON ORDERABLE LABS Final Result [facility] [address] * HIV 1/2 ANTIGEN/ANTIBODY,FOURTH GENERATION W/RFL (10/31/2021 10:50 AM EDT) Pathologist [facility] HIV-1/2 ANTIGEN AND ANTIBODIES, 4TH GENERATION W/ REFLEX NON-REACT LAMINE NON-REACT LAMINE [facility] Comment: HIV-1 antigen and HIV-1/HIV-2 [...] ? For additional information please refer to http://education.Verisim/faq/HZK552 (This link is being provided for informational/ educational purposes only.) ? The performance of this assay has not been clinically validated in patients less than 2 years old. ?? 10/31/2021 10:5 0 AM EDT us Levar Herrera MD LAB BLOOD ORDERABLES Final Res ult [facility] [address] * (ABNORMAL) -Hemoglobin A1C w/Est Glucose (07/19/2021 2:11 PM EDT) Hemoglobin A1c 6.2(H) (4.0-5.6) % [facility] Comment: MONITORING: In known diabetic patients, hemoglobin A1c targets should be discussed with health care provider. DIAGNOSTIC USE: ??The [place] Diabetes Association (ADA) and the World Health Organization (WHO) recommend the use of HbA1c to diagnose diabetes using a threshold of 6.5%. Patients who have an HbA1c between 5.7% and 6.4% are considered at increased risk for developing diabetes in the future. CAUTION: Falsely low HbA1c results may be observed in patients with hemolytic anemia, homozygous forms of abnormal hemoglobin (e.g. SS, CC, SC), , recent blood loss or hemoglobin F greater than 7%. Fructosamine may be used as an alternate test in these cases. REFERENCE: ADA: Standards of Medical Care in Diabetes 2020, The Journal of Clinical and Applied Research and Education Volume 43, Supplement 1 ESTIMATED AVERAGE GLUCOSE 131 MG/DL [facility] 07/19/2021 2:11 PM EDT us Edwige Chang MD HISTORICAL/NON ORDERABLE LABS Final Result [facility] [address] from Last 3 Months or Most Recently Relevant to Health Maintenance [place] [address] [place] [address] [facility] MEDICAID STAND ADULT Care Teams Terry Cloth Cutter Hand Relationship Specialty Start Date End Date Edwige Chang MD [address] [place] [address] PCP - General Family Medicine 01/17/22 Preeti Holland FNP Family Medicine 12/08/21 Juana Huggins Health Navigator Case Management 02/06/22
--- OUTSIDE RECORDS SUMMARY | 2024-05-25 07:52 | XMS_ITS | Encounter Summary ---
Author Organization [employer] Address [address] [facility] [address]t [place] [address] Care Team Providers Care Sheet Heater Helper Name Role Phone Amalia Preeti FLORENCE Unavailable Unavailable Edwige Chang MD Primary Care Provider [phone] Juana Huggins Unavailable Unavailable Reason for Visit * Reason Onset Date Comments medication 12/22/2022 Encounter Details Date Type Department Care Team (Late st Contact Info) Description 12/22/2022 Telephone [facility] [address] [place] [address] Edwige Chang MD [address] [place] [address] medication Social History Tobacco Use Types Packs/Day [...] 12/22/2022 9:57 AM EST Patient left [facility] contracts law professor center that she was due to get a months worth of Ativan and only got 14 days worth. Please advise. documented in this encounter Plan of Treatment Not on file documented as of this encounter Visit Diagnoses Not on filedocumented in this encounter Care Teams Sheet Heater Helper Relationship Specialty Start Date End Date Edwige Chang MD [address] [place] [address] PCP - General Family Medicine 01/17/22 Preeti Holland FNP Family Medicine 12/08/21 Juana Huggins Health Navigator Case Management 02/06/22 documented as of this encounter
--- OUTSIDE RECORDS SUMMARY | 2024-05-25 07:52 | XMS_ITS | Encounter Summary ---
Author Organization [employer] Address [address] [facility] [address] [place] [address] Care Team Providers Care Educational Sign Language Interpreter Name Role Phone Preeti Holland TOOTH CLERK Unavailable Unavailable Edwige Chang MD Primary Care Provider [phone] Juana Huggins Unavailable Unavailable Encounter Details Date Type Department Care Team (Late st Contact Info) Description 09/05/[address] [facility] MEDICAL [address] [place] [address] Eladia Muhammad, RN Social History Tobacco Use [...] EDT Received a call from Ginny at [facility] pt has an upcoming appt. There [...] documented as of this encounter Care Teams Educational Sign Language Interpreter Relationship Specialty Start Date End Date Edwige Chang MD [address] [place] [address] PCP - General Family Medicine 01/17/22 Preeti Holland FNP Family Medicine 12/08/21 Juana Huggins Health Navigator Case Management 02/06/22 documented as of this encounter
--- OUTSIDE RECORDS SUMMARY | 2024-05-25 07:52 | XMS_ITS | Encounter Summary ---
Author Organization [employer] [facility] Address [address] [facility] [address]t [place] [address] Care Team Providers Care Resource Director Name Role Phone Preeti Holland Primary Care Provider Unavailab le Preeti Holland Unavailable Unavailable Edwige Chang MD Primary Care Provider [phone] Juana Huggins Unavailable Unavailable Encounter Details Date [...] on filedocumented in this encounter Care Teams Resource Director Relationship Specialty Start Date End Date Preeti Holland FNP PCP - General Family Medicine 12/08/21 01/16/22 Edwige Chang MD [address] [place] [address] PCP - General Family Medicine 01/17/22 Preeti Holland FNP Family Medicine 12/08/21 Juana Huggins Health Navigator Case Management 02/06/22 documented as of this encounter
--- OUTSIDE RECORDS SUMMARY | 2024-05-25 07:52 | XMS_ITS | Clinical Summary ---
Author Organization [facility] Address [address] [place] [address] Phone Care Team Providers Care Welder/Fabricator Name Role Phone Edwige Chang MD Primary Care Provider [phone] Allergies No known active allergies Medications fluticasone [...] COVID-19 Vaccine ( season) 2023 04/14/2020, 03/14/2020 Diabetes: Annual Urine Albumin-Creatinine Ratio (uACR) 12/24/2023 Diabetes: Blood Sugar Control Test (HGBA1C) 12/24/2023 Depression Screening 06/27/2024 06/28/2023 Influenza Vaccine (Season Ended) 2024 12/01/2010 Diabetes: Annual GFR (Glomerular Filtration Rate) 12/23/2024 [...] age to complete this topic Meningococcal B Vaccine Aged Out No l onger eligible based on patient's age to complete [...] LAB CHEMISTRY METHOD 12/24/2023 2:15 PM EST [facility] Potassium 3.9 3.5 - 5.5 mmol/L LAB CHEMISTRY METHOD 12/24/2023 2:15 PM EST [facility] Chloride 105 96 - 110 mmol/L LAB CHEMISTRY METHOD 12/24/2023 2:15 PM EST [facility] CO2 24 21 - 32 mmol/L LAB CHEMISTRY METHOD 12/24/2023 2:15 PM EST [facility] Anion Gap 9 3 - 11 LAB CHEMISTRY METHOD 12/24/2023 2:15 PM [facility] Glucose 111(H) 70 - 100 mg/dL LAB CHEMISTRY METHOD 12/24/2023 2:15 PM [facility] BUN 13 5 - 25 mg/dL LAB CHEMISTRY METHOD 12/24/2023 2:15 PM [facility] Creatinine 0.81 0.50 - 1.10 mg/dL LAB CHEMISTRY METHOD 12/24/2023 2:15 PM [facility] eGFR 95 >=60 mL/min/1. 73m2 LAB CHEMISTRY METHOD 12/24/2023 2:15 PM [facility] Comment:Calculation based on the??Chronic Kidney Disease Epidemiology Collaboration (CKD-EPI) equation refit??without adjustment for race. BUN/Creatinine Ratio 16.0 LAB CHEMISTRY METHOD 12/24/2023 2:15 PM [facility] Calcium 10.1 8.5 - 10.5 mg/dL LAB CHEMISTRY METHOD 12/24/2023 2:15 PM [facility] AST (SGOT) 20 10 - 42 unit/L LAB CHEMISTRY METHOD 12/24/2023 2:15 PM [facility] ALT (SGPT) 25 10 - 60 unit/L LAB CHEMISTRY METHOD 12/24/2023 2:15 PM [facility] Alkaline Phosphatase 79 42 - 121 unit/L LAB CHEMISTRY METHOD 12/24/2023 2:15 PM [facility] Total Protein 7.8 6.0 - 8.0 g/dL LAB CHEMISTRY METHOD 12/24/2023 2:15 PM [facility] Albumin 4.2 3.2 - 5.0 g/dL LAB CHEMISTRY METHOD 12/24/2023 2:15 PM [facility] Total Bilirubin 0.4 0.0 - 1.4 mg/dL LAB CHEMISTRY METHOD 12/24/2023 2:15 PM EST [facility] Blood Venous blood specimen / Unknown Venipuncture / Unknown 12/24/2023 1:21 PM EST 12/24/2023 1:43 PM EST us Francis Cheung DO LAB BLOOD ORDERABLES Final Result [facility] [address] [place] [address], from Last 3 Months or Most Recently Relevant to Health Maintenance Insurance MEDICAID - [place] Care Teams Welder/Fabricator Relationship Specialty Start Date End Date Edwige Chang MD PCP - General Family Medicine 12/24/23
--- OUTSIDE RECORDS SUMMARY | 2024-05-25 07:52 | XMS_ITS | Encounter Summary ---
Author Organization [employer] Address [address] [place] [address] Care Team Providers Care Anthropology Department Chair Name Role Phone HollandPreeti WIG MAKER Unavailable Unavailable Edwige Chang MD Primary Care Provider [phone] Juana Huggins Unavailable Unavailable Encounter Details Date Type Department Care Team (Late st Contact Info) Description 04/06/2024 Orders Only [facility] Information Management [address] [place] [address] Edwige Chang MD [address] [place] [address] Social History Tobacco Use Types Packs/Day Years [...] documented as of this encounter Care Teams Anthropology Department Chair Relationship Specialty Start Date End Date Edwige Chang MD [address] [place] [address] PCP - General Family Medicine 01/17/22 Preeti Holland FNP Family Medicine 12/08/21 Juana Huggins Health Navigator Case Management 02/06/22 documented as of this encounter
[2024-05-25] MEDS: cephALEXin 500 MG CAPSULE PO (11:37)
[2024-05-25 11:51] VITALS: BP 121/70; PULSE 98; RESP 20; TEMP 36.4; O2SAT 97
--- NOTE | 2024-05-25 12:32 | PC.NURSE ---
This RN spoke with Aubrie from [facility], who has given pt resources and options for her detox. aware, Aubrie back at bedside when pt refusing to leave, Aubrie then spoke with , pt neeeds to go to court house at this time, she will not be getting admitted here. Pt has been told multiple times of plan, security called to help escort pt out of ED at this time.
--- NOTE | 2024-05-25 12:54 | PC.NURSE ---
Pt escorted out by security at this time.
[2024-05-25 12:55] VITALS: BP 0/0; PULSE 0; RESP 0; TEMP -17.7; TEMP 0; O2SAT 0
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
== END 2024-05-25 12:56 | disposition home or self-care (01) ==
PROVIDERS: Emergency Provider Emergency Medicine; PCP Family Medicine
DX: F25.0 Schizoaffective disorder, bipolar type (principal); L03.116 Cellulitis of left lower limb; F14.10 Cocaine abuse, uncomplicated; F41.9 Anxiety disorder, unspecified; M79.672 Pain in left foot; M79.671 Pain in right foot; Z87.891 Personal history of nicotine dependence; Z59.00 Homelessness unspecified
CPT/HCPCS: 99283; 99284; S9485

== ENCOUNTER 2024-08-09 20:37 | Inpatient (IN) | payer MEDICAID, OTHER, SELFPAY ==
[2024-08-09 20:41] VITALS: BP 113/82; BP 130/80; PULSE 18; PULSE 90; RESP 20; TEMP 36.9; O2SAT 94; O2SAT 96; BMI 34.7
--- NOTE | 2024-08-09 23:14 | ED_ITS ---
HPI - General Adult General Chief complaint: General Medical Stated complaint: HI, TAKING NEW MEDS CAUSING TO BE COMBATATIVE Time Seen by Provider: 08/09/24 20:39 Source: patient and EMS Mode of arrival: EMS Limitations: no limitations History of Present Illness ED Provider: Dr. Leesa Batista HPI narrative: Patient comes to the emergency room complaining of feeling anger, lasting at a ll others. Patient states that she was supposed to talk to provider about her current issues but her appointment was canceled. Patient states that she has a SI. No plan, no HI. Patient denies hurting herself before coming to the emergency room. Related Data Previous Rx's ?Medication ?Instructions ?Recorded haloperidol 5 mg tablet 5 mg PO BEDTIME 30 days #30 tabs 05/04/24 quetiapine 300 mg tablet 300 mg PO BEDTIME 30 days #3 0 tabs 05/04/24 sertraline 25 mg tablet 25 mg PO DAILY 30 days #30 t abs 05/04/24 topiramate 50 mg tablet 50 mg PO BID 30 days #60 tab s 05/04/24 trazodone 50 mg tablet 50 mg PO BEDTIME PRN insomni a 30 05/04/24 days #30 tabs cephalexin 500 mg capsule 500 mg PO QID 7 days #28 cap s 05/25/24 Allergies Allergy/AdvReac Type Severity Reaction Status Date / Time dog dander (DOG DANDER) Allergy Intermediate ITCHY EYES Verified 08/09/24 20:45 pollen extracts (POLLEN) Allergy Intermediate STUFFY, Verified 08/09/24 20:45 ITCHY EYES Pork/Porcine Containing Allergy Itching Verified 08/09/24 20:45 Products Review of Systems Review of Systems: Constitutional : No Weight loss, No Fever, No Chills, No Night Sweats, No Fatigue, No Malaise ENT/Mouth : No Hearing loss, No Ear Pain, No Nasal Congestion, No Sinus Pain, No Hoarseness, No sore throat, No Rhinorrhea, No Swallowing Difficulty Eyes: No Eye Pain, No Swelling, No Redness, No Foreign Body, No Discharge, No Vision Changes Cardiovascular : No Chest Pain, No SOB, No Dyspnea on Exertion, No Orthopnea, No Edema, No Palpitations Respiratory : No Cough, No Sputum, No Wheezing, No Smoke Exposure, No Dyspnea Gastrointestinal : No Nausea, No Vomiting, No Diarrhea, No Constipation, No abdominal Pain, No Hematochezia, No Melena Genitourinary : no irregular bleeding, No Dysuria, No Urinary Frequency, No Hematuria, No Urinary Incontinence, No Urgency, No Flank Pain, No Urinary Flow Changes, No Hesitancy Musculoskeletal : No joint pain, No Myalgias, No Joint Swelling Skin : No Skin Lesions, No rash Neuro : No Weakness, No Numbness, No Paresthesias, No Loss of Consciousness, No Dizziness, No Headache Psych : Anxiety, depression, vague SI, anger issues Heme/Lymph: No Bruising, No Bleeding,No Lymphadenopathy Endocrine : No Polyuria, No Polydipsia, No Temperature Intolerance PMFSH Past Medical History Medical History Opioid use disorder Generalized abdominal discomfort Medical clearance for psychiatric admission PTSD (post-traumatic stress disorder) Prediabetes Oligomenorrhea Routine medical exam Anxiety Pseudoseizures Bipolar 1 disorder, manic, moderate Social History Social History Household Members: None Household Members Other:: says has spouse but unhoused Housing: Homeless Do you presently have visiting nurse or other home services: No Unable to assess alcohol history related to: Refusing to respond Alcohol intake: former Patient Tobacco Use Status: Former Tobacco user Tobacco use type: Cigarette Cigarette Packs Per Day: 1 Cigarettes Per Day: 20.0 Years Smoked: Many' Smoked in Last 30 Days: Yes e-Cigarette/Vaping Use: Former Use Second Hand Smoke Exposure: No Use of substances other than those prescribed or required for medical reasons: Yes Substance Use Type: Crack/Cocaine and Heroin Substance Use Frequency Other:: has not used since may 2024 Last Used Substance: Weeks (ago) Advance Directives: No Advance Directives Information Provided: No service: No Sexual orientation: Straight/Heterosexual Physical Exam ED Vital Signs: Vital Signs - 24 hr 08/09/24 20:41 Temperature 98.5 F Pulse Rate 90 Respiratory Rate 20 Blood Pressure 113/82 Pulse Oximetry 94 Oxygen Delivery Method Room Air BMI result Body Mass Index 34.7 Const Other: Appearance: Alert. Oriented X3. No acute distress. somnolent but easily arousable Eyes: Pupils equal, round and reactive to light. ENT: Pharynx normal. Neck: Normal inspection. Neck supple. No lymph nodes noted. No crepitus CVS: Normal heart rate and rhythm. Pulses normal. Normal S1 and S2 Respiratory: No respiratory distress. Breath sounds normal. No Wheezing. No rales Abdomen: Soft and nontender. No rigidity. No distention. Skin: Skin warm and dry. Normal skin color. Normal skin turgor. Extremities: No lower extremity edema. No Lacerations. No Rash Neuro: Oriented X 3. No motor deficit. No sensory deficit. Moving all extremities. No slurred speech. CN 2 through 12 grossly intact Psych: calm, cooperative, flat affect Course Course Course Narrative: patient is daily SI, no HI, no anger issues at this time. Medical Decision Making Differential Diagnosis Differential Diagnoses: The differential diagnosis associated with the presentation includes ( Anxiety, depression) Admission/Observation Consideration of admission/observation: Escalation of care including admission/observation considered ( given patient's presentation and complaints, care team consult pending.) Discharge Plan Discharge Clinical Impression: Anxiety Prescriptions: No Action haloperidol 5 mg tablet 5 mg PO BEDTIME 30 Days Qty: 30 0RF quetiapine 300 mg tablet 300 mg PO BEDTIME 30 Days Qty: 30 0RF trazodone 50 mg tablet 50 mg PO BEDTIME PRN (Reason: insomnia) 30 Days Qty: 30 0RF sertraline 25 mg tablet 25 mg PO DAILY 30 Days Qty: 30 0RF topiramate 50 mg tablet 50 mg PO BID 30 Days Qty: 60 0RF cephalexin 500 mg capsule 500 mg PO QID 7 Days Qty: 28 0RF Print Language: Pashto
[2024-08-09 23:50] LABS: MANUAL DIFF FLAG NO
[2024-08-09 23:51] LABS: Hematocrit 35.0 % (37.0-47.0); Hemoglobin 11.5 g/dl (12.0-16.0); Imm Gran Abs Auto 0.01 X10*3/uL (0.00-0.03); Imm Gran Pct Auto 0.2 % (0.0-0.4); Lymphocytes Absolute Auto 2.6 X10*3/uL (1.2-4.9); Mean Corpuscular HGB Conc 32.9 g/dl (31.0-35.0); Mean Corpuscular Hemoglobin 25.2 pg (27.0-33.0); Mean Corpuscular Volume 76.8 fL (80.0-98.0); NRBC Abs Auto 0.000 X10*3/uL (0.0-0.012); NRBC Pct Auto 0.0 /100WBC (0.0-0.2); Platelet Count 279 X10*3/uL (160-400); Red Blood Count 4.56 X10*6/uL (4.20-5.50); White Blood Count 5.0 X10*3/uL (4.8-10.8)
[2024-08-10 00:08] LABS: Alanine Aminotransferase 22 U/L (0-31); Albumin Level 4.3 g/dL (3.5-5.0); Alkaline Phosphatase 74 U/L (39-117); Anion Gap 11 (12-20); Aspartate Amino Transferase 24 U/L (5-31); Blood Urea Nitrogen 13 mg/dL (9-16); Calcium 9.3 mg/dL (8.4-10.2); Carbon Dioxide 21 mmol/L (22-29); Chloride 109 mmol/L (96-108); Creatinine Clr Calc Pharmacy 124.0; Estimated Glomerular Filt Rate > 60; Potassium 3.3 mmol/L (3.3-5.1); Sodium 138 mmol/L (135-145); Total Protein 7.2 g/dL (6.5-8.0)
[2024-08-10 00:19] LABS: Cannabinoid Screen Urine Not Detected (Not Detect)
[2024-08-10 06:47] VITALS: RESP 16
[2024-08-10 08:06] LABS: Appearance Urine Clear; PH 5.5 (5.0-9.0); Specific Gravity - Urine 1.010 (1.005-1.025); UMIC TRIGGER UACC YES; UPreg QC Valid YES
--- NOTE | 2024-08-10 08:26 | MHC.CARE ---
Pt will be an inpatient bedsearch
--- NOTE | 2024-08-10 08:44 | MHC.EDTECH ---
Patient was changed into crisis attire,security at bedside,belongings list completed,copy placed in chart,All Belongings locked in the RY PORT on the floor, meds given to Re BOLES. 1-1 sitter at bedside for safety
[2024-08-10 08:48] LABS: Other Crystals Urine Present
--- NOTE | 2024-08-10 09:09 | ECG_ITS ---
Test Reason : ADMIT Blood Pressure : */* mmHG Vent. Rate : 67 BPM Atrial Rate : 67 BPM P-R Int : 146 ms QRS Dur : 76 ms QT Int : 390 ms P-R-T Axes : 36 59 33 degrees QTcB Int : 412 ms Normal sinus rhythm Normal ECG When compared with ECG of 26-Apr-2024 18:29, No significant change was found Referred By: Leesa Batista Electronically Signed By: NAYA ZAVALETA MD
--- NOTE | 2024-08-10 09:37 | MHC.EDTECH ---
EKG completed per order and signed by provider
--- NOTE | 2024-08-10 09:54 | PHA.MEDREC ---
Pharmacy Consult ? Medication Reconciliation Pharmacy has completed the medication reconciliation. Utilized medication list from [facility] to confirm meds.
[2024-08-10 12:21] VITALS: BP 112/74; PULSE 72; RESP 16; TEMP 36.8; O2SAT 95
[2024-08-10 14:27] VITALS: BP 92/54; PULSE 72; RESP 19; TEMP 36.8; O2SAT 98
--- NOTE | 2024-08-10 21:47 | PC.NURSE ---
patient reported diffuse itching and requested medicine. notified provider
--- NOTE | 2024-08-10 21:48 | PC.NURSE ---
patient had been restng in room until 2099-gloria patient provided snack and drink and givn hs meds, declined 100mg of HS topamax. t/w informed client she could change her mind
[2024-08-10 21:51] VITALS: BP 131/73; PULSE 86; RESP 16; TEMP 36.8; O2SAT 96
[2024-08-10] MEDS: diphenhydrAMINE HCl 2 % Cream 28 GM TUBE 1 APPL TOPICAL (22:23)
--- NOTE | 2024-08-11 03:02 | PC.NURSE ---
Took report from off-going RN at 0115 hours. Pt is a 39 y/o female who presented to the ED for evaluation of feeling angry and lashing out at other. Reports SI without a plan. Endorses having racing thoughts and increasing thoughts of depression. Has been seen here for similar concerns in the past. Pt is awake, alert, and oriented X 4, and is easily arousable with verbal stimuli. At present, pt is calm and cooperative, appropriate with staff. Can be manipulative. Ambulates with a steady gait unassisted and uses the bathroom as desired. No acute distress observed at this time. Pt is on a section 12 and a bed search is ongoing. Continuous safety checks every 15 min. Will continue to monitor for any changes.
--- NOTE | 2024-08-11 05:42 | PC.NURSE ---
Pt has been sleeping most of the shift, appears comfortable, and changes positions independently as desired. Is easily arousable with verbal stimuli. No needs verbalized at this time. Safety checks continue every 15 min. Will continue to monitor for any changes.
--- NOTE | 2024-08-11 08:02 | PC.NURSE ---
Assumed care of patient at 0645, patient appears to be in no apparent distress this am, sleeping, respirations even and unlabored. Continue plan of care for IPLOC
[2024-08-11 12:40] VITALS: BMI 34.5
[2024-08-11 12:41] VITALS: BP 124/66; PULSE 100; RESP 18; TEMP 36.5; O2SAT 97
--- NOTE | 2024-08-11 15:19 | HO.PSYADMNOT ---
[facility] Date of Service: 08/11/24 Chief Complaint: PTSD Schizoaffective Disorder Polysubstance Use Sources of Information: patient interviewed, chart reviewed and crisis/core team assessment reviewed HPI Subjective Notes: Conditional Voluntary Narrative: Patient is a 39-year-old female with history schizoaffective disorder, PTSD, opiate use disorder, cocaine use d/o and alcohol use disorder who presented to [facility] [place] due to complaining of feeling angry and suicidal secondary to medication noncompliance. Per crisis report, patient arrived to ED with complaints of feeling angry and lashing out at others. Patient stated she was supposed to talk to her outpatient provider about this but her appointment was canceled. She reports suicidal ideation with no plan. History of multiple inpatient psychiatric hospitalizations. History of medication noncompliance. Patient reports she has been off her medications for approximately 1 week or more. She reports she does not have the motivation to take them. Patient reports she has been sober from substances since May of 2024. Utox negative for all substances. Patient reports poor sleep. Denies HI. She reports having auditory hallucinations at baseline and is beginning to experience visual hallucinations. During admission assessment, pt presents alert and oriented x3. Calm and cooperative. Patient reports feeling mcginnis ; patient stated, I was discharged from a [facility] in [place]. I'm here because I'm trying to get my meds regulated. I feel like they are making me mcginnis and have an attitude . Patient reports she has not been medication compliant for the past couple of days. Patient stated, I don't like how they make me feel . denies any substance use. Utox negative for all substances. denies SI/HI/AH. She reports visual hallucinations of snakes . She reports poor sleep but good appetite. Her goal for admission is to have her psychiatric medications evaluated. Past Psychiatric History: Multiple inpatient psychiatric hospitalizations. History of substance abuse treatment programs. History of medication noncompliance. Medical Evaluation Reviewed: Yes [facility] Medical History Opioid use disorder Generalized abdominal discomfort Medical clearance for psychiatric admission PTSD (post-traumatic stress disorder) Prediabetes Oligomenorrhea Routine medical exam Anxiety Pseudoseizures Bipolar 1 disorder, manic, moderate Family History: Bipolar Disorder Social History: . Homeless. 3 kids. Substance History: hx of opioid and cocaine use. denies any substance use at this time. utox negative for all substances. Trauma History: yes Diagnostics Vital Signs (24Hr): Vital Signs - 24 hr 08/10/24 21:51 08/11/24 12:41 Temperature 98.2 F 97.7 F Pulse Rate 86 100 Respiratory Rate 16 18 Blood Pressure 131/73 124/66 Pulse Oximetry 96 97 Oxygen Delivery Method Room Air Room Air BMI result Body Mass Index 34.5 Labs 08/09/24 23:46 08/09/24 23:46 Labs: Laboratory Results - last 48 hr 08/09/24 08/10/24 23:46 07:56 WBC 5.0 RBC 4.56 Hgb 11.5 L Hct 35.0 L MCV 76.8 L MCH 25.2 L MCHC 32.9 RDW 15.8 Plt Count 279 MPV 9.5 Immature Gran % (Auto) 0.2 Neut % (Auto) 36.1 L Lymph % (Auto) 50.7 H [place] % (Auto) 8.2 Eos % (Auto) 3.6 Baso % (Auto) 1.2 Lymph # (Auto) 2.6 [place] # (Auto) 0.4 Eos # (Auto) 0.2 Baso # (Auto) 0.1 Abs Immat Gran (auto) 0.01 Absolute Neuts (auto) 1.8 L Absolute Nucleated RBC 0.000 Nucleated RBC % (auto) 0.0 Sodium 138 Potassium 3.3 Chloride 109 H Carbon Dioxide 21 L Anion Gap 11 L BUN 13 Creatinine 0.71 Estim Creat Clear Calc 124.0 Estimated GFR > 60 Random Glucose 131 H Calcium 9.3 Total Bilirubin 0.2 Direct Bilirubin < 0.2 AST 24 ALT 22 Alkaline Phosphatase 74 Total Protein 7.2 Albumin 4.3 Urine Color Moore Urine Appearance Clear Urine pH 5.5 Ur Specific [place] 1.010 Urine Protein See Note Urine Glucose (UA) See Note Urine Ketones Negative Urine Blood Negative Urine Nitrite See Note Ur Leukocyte Esterase Negative Urine RBC 0-2 Urine WBC 0-5 Ur Squamous Epith Cells 0-2 Other Crystals Present Urine Bacteria None Seen Hyaline Casts 0-2 Urine Test NEGATIVE Urine Opiates Screen Not Detected Ur Buprenorphine Scrn Not Detected Ur Oxycodone Screen Not Detected Urine Methadone Screen Not Detected Urine Fentanyl Screen Not Detected Ur Barbiturates Screen Not Detected Ur Phencyclidine Scrn Not Detected Ur Amphetamines Screen Not Detected U Benzodiazepines Scrn Not Detected Urine Cocaine Screen Not Detected U Marijuana (THC) Screen Not Detected Ethyl Alcohol < 10 Meds/Allergies Meds Home Medications ?Medication ?Instructions ?Recorded ?Confirmed ?Type cetirizine 10 mg tablet 10 mg PO DAILY 08/10/24 08/10/24 History clonidine HCl 0.1 mg tablet 0.1 mg PO BID PRN Anxiety 08/10/24 08/10/24 History clotrimazole 1 % topical cream 1 appl topical BID 08/10/24 08/10/24 History ibuprofen 200 mg tablet 400 mg PO Q6H PRN Pain 08/10/24 08/10/24 History phenazopyridine 99.5 mg tablet 99.5 mg PO TID PRN Urinary 08/10/24 08/10/24 History (Azo Urinary Pain Relief) Retention quetiapine 50 mg tablet 50 mg PO BEDTIME 08/10/24 08/10/24 History topiramate 50 mg tablet 25 mg PO BID 08/10/24 08/10/24 History topiramate 50 mg tablet 100 mg PO BEDTIME 08/10/24 08/10/24 History Allergies Allergies Allergy/AdvReac Type Severity Reaction Status Date / Time dog dander (DOG DANDER) Allergy Intermediate ITCHY EYES Verified 08/09/24 20:45 pollen extracts (POLLEN) Allergy Intermediate STUFFY, Verified 08/09/24 20:45 ITCHY EYES Pork/Porcine Containing Allergy Itching Verified 08/09/24 20:45 Products Mental Status Exam Mental Status Exam Patient Appearance: Appropriate Patient Orientation: Person, Place, Time and Situation Level of Consciousness: Awake and Alert Patient Behavior: Appropriate and Cooperative Mood Description: Depressed Affect Description: Calm Ability to Follow Directions: Good Speech Pattern: Clear Memory Description: Intact Hallucinations: Visual Delusions: Not Present Thought Process: Intact and Goal Oriented Thought Content: positive for Intact Assessment & Plan Assessment & Plan (1) Schizoaffective disorder, bipolar type: Status: Acute Code(s): F25.0 - Schizoaffective disorder, bipolar type (2) PTSD (post-traumatic stress disorder): Status: Acute Code(s): F43.10 - Post-traumatic stress disorder, unspecified (3) Homelessness: Status: Acute Code(s): Z59.00 - Homelessness unspecified Plan Patient is a 39-year-old female with history schizoaffective disorder, PTSD, opiate use disorder, cocaine use d/o and alcohol use disorder who presented to [facility] [place] due to complaining of feeling angry and suicidal secondary to medication noncompliance. Plan: CV 15 minute safety checks continue home medications obtain collateral referral to outpatient psychiatric providers encourage groups discharge planning Patient educated on: diagnosis and medication risk/benefits Reason for continued inpatient stay Substantial Risk for: med/psych decompensation Statement Statement: I have reviewed the history and physical and performed a pertinent examination on my patient. No changes have occurred unless specified. If the History and Physical was not performed prior to admission, the Hospitalist's service will be consulted for completing the admission physical. Time Spent With Patient Time: Total time managing care of this patient today _60___ minutes.
--- NOTE | 2024-08-11 17:16 | PC.ADMIT ---
Leah is a 39 year old female who was admitted to from the [facility] with reports of SI without a plan. She carries a diagnosis of bipolar disorder, PTSD, schizoaffective disorder, substance abuse disorder, incarceration, and multiple inpatient psychiatric admissions. Leah admits to being off her medication for 1 week or more due to not having the motivation to take them. During skin and safety check she shared she has been clean and sober since 05/25 after completing a treatment program and she is attending 12 step meetings. She is chronically homeless and is getting . She denies active SI/HI/AVH but does report intermittent VH. her anxiety and depression are 6/10. Her skin and safety check were unremarkable and she signed all admission forms and signed a CV with the provider. She was calm, cooperative, and thought process organized. She hopes to get back on her medications and establish providers and hopes to go to [facility] after stabilization. Leah is pleasant, sitting in the kitchen eating dinner? with peers. Placed on 15 min safety checks?
[2024-08-11 20:00] VITALS: BP 137/87; PULSE 107; TEMP 36.8; O2SAT 96
[2024-08-12 08:54] VITALS: BP 104/55; PULSE 80; RESP 18; TEMP 36.4; O2SAT 97
--- NOTE | 2024-08-12 09:50 | HO.PSYCHPN ---
Subjective Subjective Date of Service: 08/12/24 Reason For Visit: PTSD Schizoaffective Disorder Polysubstance Use Subjective Notes: Conditional Voluntary Mental Status Exam Mental Status Exam Narrative: Appearance: Casually dressed Behavior: Calm and cooperative throughout the interview. Eye contact is appropriate, and there are no signs of psychomotor agitation or retardation Speech: Normal volume and prosody Thought process logical and goal-directed Thought content: Future oriented no self-harming thoughts Mood: Euthymic Affect: Full, mood-congruent SI:denies HI:denies VH/AH:none Delusions: None Insight/judgment: Good insight and judgment Memory/cog: Alert, oriented x 4. grossly intact to conversational testing Diagnostics Vital Signs (24Hr): Vital Signs - 24 hr 08/11/24 12:41 08/11/24 20:00 08/12/24 08:54 Temperature 97.7 F 98.2 F 97.5 F Pulse Rate 100 107 H 80 Respiratory Rate 18 18 Blood Pressure 124/66 137/87 104/55 L Pulse Oximetry 97 96 97 Oxygen Delivery Method Room Air Room Air Room Air BMI result Body Mass Index 34.5 Labs 08/09/24 23:46 08/09/24 23:46 Medications Medications Current Medications Acetaminophen (Acetaminophen 325 Mg Tablet) 650 mg PO Q6H PRN PRN Reason: Headache/Pain, Scale 1-10 Al Hydroxide/Mg Hydroxide (Magnesium Hydrox/Alum Hydrox 30 Ml Oral.Susp) 30 ml PO Q6H PRN PRN Reason: Heartburn/Nausea Clonidine HCl (Clonidine Hcl 0.1 Mg Tablet) 0.1 mg PO BID PRN; Protocol PRN Reason: Anxiety Clotrimazole (Clotrimazole 1 % Cream 15 Gm Tube) 1 appl TOPICAL BID [facility]; Protocol Last Admin: 08/11/24 21:54 Dose: Not Given Hydroxyzine HCl (Hydroxyzine Hcl 25 Mg Tablet) 25 mg PO Q6H PRN PRN Reason: mild anxiety Loratadine (Loratadine 10 Mg Tablet) 10 mg PO DAILY [facility] Last Admin: 08/12/24 08:34 Dose: 10 mg Magnesium Hydroxide (Milk Of Magnesia 30 Ml Oral.Susp) 30 ml PO DAILY PRN PRN Reason: Constipation Nicotine Polacrilex (Nicotine Polacrilex 2 Mg Gum) 4 mg BUCCAL Q2H PRN PRN Reason: Nicotine Cravings Olanzapine (Olanzapine 5 Mg Tablet) 5 mg PO Q4H PRN PRN Reason: agitation Last Admin: 08/11/24 21:52 Dose: 5 mg Quetiapine Fumarate (Quetiapine Fumarate 50 Mg Tablet) 50 mg PO BEDTIME [facility] Last Admin: 08/11/24 21:37 Dose: 50 mg Topiramate (Topiramate 25 Mg Tablet) 25 mg PO BID [facility] Last Admin: 08/12/24 08:34 Dose: 25 mg Topiramate (Topiramate 25 Mg Tablet) 100 mg PO BEDTIME [facility] Last Admin: 08/11/24 21:38 Dose: Not Given Trazodone HCl (Trazodone Hcl 50 Mg Tablet) 50 mg PO BEDTIME MRX1 PRN PRN Reason: Insomnia Zinc Acetate/Diphenhydramine (Diphenhydramine Hcl 2 % Cream 28 Gm Tube) 1 appl TOPICAL TID PRN PRN Reason: Itching Stop: 08/16/24 23:59 Last Admin: 08/10/24 22:23 Dose: 1 appl Allergies Allergies Allergy/AdvReac Type Severity Reaction Status Date / Time dog dander (DOG DANDER) Allergy Intermediate ITCHY EYES Verified 08/09/24 20:45 pollen extracts (POLLEN) Allergy Intermediate STUFFY, Verified 08/09/24 20:45 ITCHY EYES Pork/Porcine Containing Allergy Itching Verified 08/09/24 20:45 Products Assessment & Plan Assessment & Plan (1) Schizoaffective disorder, bipolar type: Status: Acute Code(s): F25.0 - Schizoaffective disorder, bipolar type (2) PTSD (post-traumatic stress disorder): Status: Acute Code(s): F43.10 - Post-traumatic stress disorder, unspecified (3) Homelessness: Status: Acute Code(s): Z59.00 - Homelessness unspecified Plan Patient is a 39-year-old female with history schizoaffective disorder, PTSD, opiate use disorder, cocaine use d/o and alcohol use disorder who [place] [facility] [place] due to complaining of feeling angry and suicidal secondary to medication noncompliance. Plan: CV 15 minute safety checks continue home medications obtain collateral referral to outpatient psychiatric providers encourage groups discharge planning Time Spent With Patient Time: Total time managing care of this patient today ____ minutes.
--- NOTE | 2024-08-12 09:51 | HO.PSYADMNOT ---
[facility] Date of Service: 08/12/24 Chief Complaint: PTSD Schizoaffective Disorder Polysubstance Use Sources of Information: patient interviewed and chart reviewed HPI Subjective Notes: Conditional Voluntary Narrative: [email or web address] Leah is a 39 year old female who was admitted [place] [facility] with reports of SI without a plan. She carries a diagnosis of bipolar disorder, PTSD, schizoaffective disorder, substance abuse disorder, incarceration, and multiple inpatient psychiatric admissions. Leah admits to being off her medication for 1 week or more due to not having the motivation to take them. During skin and safety check she shared she has been clean and sober since 05/25 after completing a treatment program and she is attending 12 step meetings. She is chronically homeless and is getting . She denies active SI/HI/AVH but does report intermittent VH. her anxiety and depression are 6/10. Her skin and safety check were unremarkable and she signed all admission forms and signed a CV with the provider. She was calm, cooperative, and thought process organized. She hopes to get back on her medications and establish providers and hopes to go to [facility] after stabilization. Leah is pleasant, sitting in the kitchen eating dinner? with peers. Placed on 15 min safety checks? Past Psychiatric History: Multiple inpatient psychiatric hospitalizations. History of substance abuse treatment programs. History of medication noncompliance. [facility] Medical History Opioid use disorder Generalized abdominal discomfort Medical clearance for psychiatric admission PTSD (post-traumatic stress disorder) Prediabetes Oligomenorrhea Routine medical exam Anxiety Pseudoseizures Bipolar 1 disorder, manic, moderate Family History: Bipolar Disorder Social History: . Homeless. 3 kids. Trauma History: yes Diagnostics Vital Signs (24Hr): Vital Signs - 24 hr 08/11/24 12:41 08/11/24 20:00 08/12/24 08:54 Temperature 97.7 F 98.2 F 97.5 F Pulse Rate 100 107 H 80 Respiratory Rate 18 18 Blood Pressure 124/66 137/87 104/55 L Pulse Oximetry 97 96 97 Oxygen Delivery Method Room Air Room Air Room Air BMI result Body Mass Index 34.5 Labs 08/09/24 23:46 08/09/24 23:46 Meds/Allergies Meds Home Medications ?Medication ?Instructions ?Recorded ?Confirmed ?Type cetirizine 10 mg tablet 10 mg PO DAILY 08/10/24 08/10/24 History clonidine HCl 0.1 mg tablet 0.1 mg PO BID PRN Anxiety 08/10/24 08/10/24 History clotrimazole 1 % topical cream 1 appl topical BID 08/10/24 08/10/24 History ibuprofen 200 mg tablet 400 mg PO Q6H PRN Pain 08/10/24 08/10/24 History phenazopyridine 99.5 mg tablet 99.5 mg PO TID PRN Urinary 08/10/24 08/10/24 History (Azo Urinary Pain Relief) Retention quetiapine 50 mg tablet 50 mg PO BEDTIME 08/10/24 08/10/24 History topiramate 50 mg tablet 25 mg PO BID 08/10/24 08/10/24 History topiramate 50 mg tablet 100 mg PO BEDTIME 08/10/24 08/10/24 History Allergies Allergies Allergy/AdvReac Type Severity Reaction Status Date / Time dog dander (DOG DANDER) Allergy Intermediate ITCHY EYES Verified 08/09/24 20:45 pollen extracts (POLLEN) Allergy Intermediate STUFFY, Verified 08/09/24 20:45 ITCHY EYES Pork/Porcine Containing Allergy Itching Verified 08/09/24 20:45 Products Mental Status Exam Mental Status Exam Narrative: Appearance: Casually dressed Behavior: Calm and cooperative throughout the interview. Eye contact is appropriate, and there are no signs of psychomotor agitation or retardation Speech: Normal volume and prosody Thought process logical and goal-directed Thought content: Future oriented no self-harming thoughts Mood: Euthymic Affect: Full, mood-congruent SI:denies HI:denies VH/AH:none Delusions: None Insight/judgment: Good insight and judgment Memory/cog: Alert, oriented x 4. grossly intact to conversational testing Assessment & Plan Statement Statement: I have reviewed the history and physical and performed a pertinent examination on my patient. No changes have occurred unless specified. If the History and Physical was not performed prior to admission, the Hospitalist's service will be consulted for completing the admission physical. Time Spent With Patient Time: Total time managing care of this patient today ____ minutes.
[2024-08-12] MEDS: Clotrimazole 1 % Cream 15 GM TUBE 1 APPL TOPICAL (10:40)
--- NOTE | 2024-08-12 13:02 | P.PNPSI_ITS ---
Subjective Subjective Date of Service: 08/12/24 Reason For Visit: PTSD Schizoaffective Disorder Polysubstance Use Subjective Notes: Conditional Voluntary Interim History: Patient states that she is a lot better than yesterday. She notes that she has been taking her medications, sleeping well, and attending groups. She currently denies anxiety or depression. She reports mood swings and states that her mood is stable on Haldol, which she was on at her last hospitalization here. She request to restart Haldol. She denies SI/HI/AH/VH. Medication Compliance: Yes Side effects from medications: No Attending Groups: Intermittent Review of Systems Acute medical concerns: No Review of Systems Review of Systems Yes all other systems are reviewed and are negative Mental Status Exam Mental Status Exam Narrative: Appearance: Casually dressed, adequate hygiene Behavior: Calm and cooperative throughout the interview. Eye contact is appropriate, and there are no signs of psychomotor agitation or retardation Speech: Normal volume and prosody Thought process: Circumstantial Thought content: Future oriented no self-harming thoughts Mood: better Affect: Constricted SI:denies HI:denies VH/AH:none Delusions: None Insight/judgment: Impaired insight and judgment Memory/cog: Alert, oriented x 4. grossly intact to conversational testing Diagnostics Vital Signs (24Hr): Vital Signs - 24 hr 08/11/24 20:00 08/12/24 08:54 Temperature 98.2 F 97.5 F Pulse Rate 107 H 80 Respiratory Rate 18 Blood Pressure 137/87 104/55 L Pulse Oximetry 96 97 Oxygen Delivery Method Room Air Room Air BMI result Body Mass Index 34.5 Labs 08/09/24 23:46 08/09/24 23:46 Medications Medications Current Medications Acetaminophen (Acetaminophen 325 Mg Tablet) 650 mg PO Q6H PRN PRN Reason: Headache/Pain, Scale 1-10 Al Hydroxide/Mg Hydroxide (Magnesium Hydrox/Alum Hydrox 30 Ml Oral.Susp) 30 ml PO Q6H PRN PRN Reason: Heartburn/Nausea Clonidine HCl (Clonidine Hcl 0.1 Mg Tablet) 0.1 mg PO BID PRN; Protocol PRN Reason: Anxiety Clotrimazole (Clotrimazole 1 % Cream 15 Gm Tube) 1 appl TOPICAL BID [facility]; Protocol Last Admin: 08/12/24 10:40 Dose: 1 appl Hydroxyzine HCl (Hydroxyzine Hcl 25 Mg Tablet) 25 mg PO Q6H PRN PRN Reason: mild anxiety Loratadine (Loratadine 10 Mg Tablet) 10 mg PO DAILY [facility] Last Admin: 08/12/24 08:34 Dose: 10 mg Magnesium Hydroxide (Milk Of Magnesia 30 Ml Oral.Susp) 30 ml PO DAILY PRN PRN Reason: Constipation Nicotine Polacrilex (Nicotine Polacrilex 2 Mg Gum) 4 mg BUCCAL Q2H PRN PRN Reason: Nicotine Cravings Olanzapine (Olanzapine 5 Mg Tablet) 5 mg PO Q4H PRN PRN Reason: agitation Last Admin: 08/11/24 21:52 Dose: 5 mg Quetiapine Fumarate (Quetiapine Fumarate 50 Mg Tablet) 50 mg PO BEDTIME [facility] Last Admin: 08/11/24 21:37 Dose: 50 mg Topiramate (Topiramate 25 Mg Tablet) 25 mg PO BID [facility] Last Admin: 08/12/24 08:34 Dose: 25 mg Topiramate (Topiramate 25 Mg Tablet) 100 mg PO BEDTIME [facility] Last Admin: 08/11/24 21:38 Dose: Not Given Trazodone HCl (Trazodone Hcl 50 Mg Tablet) 50 mg PO BEDTIME MRX1 PRN PRN Reason: Insomnia Zinc Acetate/Diphenhydramine (Diphenhydramine Hcl 2 % Cream 28 Gm Tube) 1 appl TOPICAL TID PRN PRN Reason: Itching Stop: 08/16/24 23:59 Last Admin: 08/10/24 22:23 Dose: 1 appl Allergies Allergies Allergy/AdvReac Type Severity Reaction Status Date / Time dog dander (DOG DANDER) Allergy Intermediate ITCHY EYES Verified 08/09/24 20:45 pollen extracts (POLLEN) Allergy Intermediate STUFFY, Verified 08/09/24 20:45 ITCHY EYES Pork/Porcine Containing Allergy Itching Verified 08/09/24 20:45 Products Assessment & Plan Assessment & Plan (1) Schizoaffective disorder, bipolar type: Status: Acute Code(s): F25.0 - Schizoaffective disorder, bipolar type (2) PTSD (post-traumatic stress disorder): Status: Acute Code(s): F43.10 - Post-traumatic stress disorder, unspecified (3) Homelessness: Status: Acute Code(s): Z59.00 - Homelessness unspecified Plan Plan Patient is a 39-year-old female with history schizoaffective disorder, PTSD, opiate use disorder, cocaine use d/o and alcohol use disorder who presented to [facility] via ambulance due to complaining of feeling angry and suicidal secondary to medication noncompliance. 08/12: Patient states that she is a lot better than yesterday. She notes that she has been taking her medications, sleeping well, and attending groups. She currently denies anxiety or depression. She reports mood swings and states that her mood is stable on Haldol, which she was on at her last hospitalization here. She requests to restart Haldol. She denies SI/HI/AH/VH. Haldol 2 mg daily at bedtime ordered; advised to take as prescribed; instructed on the risks, benefits, and potential adverse reactions of the medication. Continue current treatment regimen. Plan: CV 15 minute safety checks continue home medications obtain collateral referral to outpatient psychiatric providers encourage groups discharge planning Patient educated on: therapeutic strategies Guardian/Caregiver educated on: therapeutic strategies Reason for continued inpatient stay Substantial Risk for: rapid decompensation Time Spent With Patient Time: Total time managing care of this patient today ____ minutes.
[2024-08-12 19:45] VITALS: BP 149/93; PULSE 95; RESP 18; TEMP 36.3; O2SAT 96
[2024-08-13 07:00] VITALS: BMI 35.6
[2024-08-13] MEDS: Clotrimazole 1 % Cream 15 GM TUBE 1 APPL TOPICAL ×2 (08:25→23:10)
[2024-08-13 08:27] VITALS: BP 130/80; PULSE 92; RESP 16; TEMP 36.6; O2SAT 96
[2024-08-13 08:35] LABS: Hemoglobin A1C 157.8817 umol/L; Total Hemoglobin (HGBA1C) 3274.3774 umol/L
[2024-08-13 08:40] LABS: Cholesterol 251 mg/dL (<200); HDL Cholesterol 43 mg/dL (>40); Magnesium 1.8 mg/dL (1.6-2.6); Triglycerides 395 mg/dL (<150)
[2024-08-13 08:57] LABS: Free T4 (Free Thyroxine) 0.96 ng/dL (0.71-1.85); Thyroid Stimulating Hormone 3.04 uIU/mL (0.32-4.0)
[2024-08-13 09:08] LABS: Folate 6.8 ng/mL (> or = 4.0); Vitamin B12 265 pg/mL (200-900)
--- NOTE | 2024-08-13 11:03 | P.PNPSI_ITS ---
Subjective Subjective Date of Service: 08/13/24 Reason For Visit: PTSD Schizoaffective Disorder Polysubstance Use Subjective Notes: Conditional Voluntary and 3 Day Medical Problems Affecting Mental Status: No Interim History: Patient states that she feels good. She slept well last night. She has been taking her medications as prescribed and attending groups. She denies anxiety or depession. She denies SI/HI/AH/VH. Medication Compliance: Yes Side effects from medications: No Attending Groups: Intermittent Review of Systems Acute medical concerns: No Review of Systems Review of Systems Yes all other systems are reviewed and are negative Mental Status Exam Mental Status Exam Narrative: Appearance: Casually dressed, adequate hygiene Behavior: Calm and cooperative throughout the interview. Eye contact is appropriate, and there are no signs of psychomotor agitation or retardation Speech: Normal volume and prosody Thought process: Logical and goal-directed Thought content: Future oriented no self-harming thoughts Mood: Good Affect: Constricted SI:denies HI:denies VH/AH:none Delusions: None Insight/judgment: Fair insight and judgment Memory/cog: Alert, oriented x 4. grossly intact to conversational testing Diagnostics Vital Signs (24Hr): Vital Signs - 24 hr 08/12/24 19:45 08/13/24 08:27 Temperature 97.3 F 98 F Pulse Rate 95 92 Respiratory Rate 18 16 Blood Pressure 149/93 H 130/80 Pulse Oximetry 96 96 Oxygen Delivery Method Room Air Room Air BMI result Body Mass Index 34.5 Labs 08/09/24 23:46 08/09/24 23:46 Labs: Laboratory Results - last 48 hr 08/13/24 07:52 Estimat Average Glucose 143 Hemoglobin A1c % 6.6 H Magnesium 1.8 Triglycerides 395 H Cholesterol 251 H LDL Cholesterol, Calc 129 H HDL Cholesterol 43 Vitamin B12 265 Folate 6.8 TSH 3.04 Free T4 0.96 Medications Medications Current Medications Acetaminophen (Acetaminophen 325 Mg Tablet) 650 mg PO Q6H PRN PRN Reason: Headache/Pain, Scale 1-10 Al Hydroxide/Mg Hydroxide (Magnesium Hydrox/Alum Hydrox 30 Ml Oral.Susp) 30 ml PO Q6H PRN PRN Reason: Heartburn/Nausea Clonidine HCl (Clonidine Hcl 0.1 Mg Tablet) 0.1 mg PO BID PRN; Protocol PRN Reason: Anxiety Clotrimazole (Clotrimazole 1 % Cream 15 Gm Tube) 1 appl TOPICAL BID [facility]; Protocol Last Admin: 08/13/24 08:25 Dose: 1 appl Haloperidol (Haloperidol 1 Mg Tablet) 2 mg PO BEDTIME [facility] Last Admin: 08/12/24 21:17 Dose: 2 mg Hydroxyzine HCl (Hydroxyzine Hcl 25 Mg Tablet) 25 mg PO Q6H PRN PRN Reason: mild anxiety Loratadine (Loratadine 10 Mg Tablet) 10 mg PO DAILY [facility]S [facility]CLUDE 234 BEDS AT [facility] Last Admin: 08/13/24 08:25 Dose: 10 mg Magnesium Hydroxide (Milk Of Magnesia 30 Ml Oral.Susp) 30 ml PO DAILY PRN PRN Reason: Constipation Nicotine Polacrilex (Nicotine Polacrilex 2 Mg Gum) 4 mg BUCCAL Q2H PRN PRN Reason: Nicotine Cravings Olanzapine (Olanzapine 5 Mg Tablet) 5 mg PO Q4H PRN PRN Reason: agitation Last Admin: 08/12/24 21:17 Dose: 5 mg Quetiapine Fumarate (Quetiapine Fumarate 50 Mg Tablet) 50 mg PO BEDTIME [facility]S [facility]CLUDE 234 BEDS AT [facility] Last Admin: 08/12/24 21:17 Dose: 50 mg Topiramate (Topiramate 25 Mg Tablet) 25 mg PO BID COUNTS [facility]CLUDE 234 BEDS AT [facility] Last Admin: 08/13/24 08:25 Dose: 25 mg Topiramate (Topiramate 25 Mg Tablet) 100 mg PO BEDTIME COUNTS [facility]CLUDE 234 BEDS AT THE [facility] Last Admin: 08/12/24 21:17 Dose: 100 mg Trazodone HCl (Trazodone Hcl 50 Mg Tablet) 50 mg PO BEDTIME MRX1 PRN PRN Reason: Insomnia Zinc Acetate/Diphenhydramine (Diphenhydramine Hcl 2 % Cream 28 Gm Tube) 1 appl TOPICAL TID PRN PRN Reason: Itching Stop: 08/16/24 23:59 Last Admin: 08/10/24 22:23 Dose: 1 appl Allergies Allergies Allergy/AdvReac Type Severity Reaction Status Date / Time dog dander (DOG DANDER) Allergy Intermediate ITCHY EYES Verified 08/09/24 20:45 pollen extracts (POLLEN) Allergy Intermediate STUFFY, Verified 08/09/24 20:45 ITCHY EYES Pork/Porcine Containing Allergy Itching Verified 08/09/24 20:45 Products Assessment & Plan Assessment & Plan (1) Schizoaffective disorder, bipolar type: Status: Acute Code(s): F25.0 - Schizoaffective disorder, bipolar type (2) PTSD (post-traumatic stress disorder): Status: Acute Code(s): F43.10 - Post-traumatic stress disorder, unspecified (3) Homelessness: Status: Acute Code(s): Z59.00 - Homelessness unspecified Plan Plan Patient is a 39-year-old female with history schizoaffective disorder, PTSD, opiate use disorder, cocaine use d/o and alcohol use disorder who presented to [facility] via ambulance due to complaining of feeling angry and suicidal secondary to medication noncompliance. 08/12: Patient states that she is a lot better than yesterday. She notes that she has been taking her medications, sleeping well, and attending groups. She currently denies anxiety or depression. She reports mood swings and states that her mood is stable on Haldol, which she was on at her last hospitalization here. She requests to restart Haldol. She denies SI/HI/AH/VH. Haldol 2 mg daily at bedtime ordered; advised to take as prescribed; instructed on the risks, benefits, and potential adverse reactions of the medication. Continue current treatment regimen. 08/13: Patient states that she feels good. She slept well last night. She has been taking her medications as prescribed and attending groups. She denies anxiety or depession. She denies SI/HI/AH/VH. Continue current treatment regimen. Plan: CV 15 minute safety checks continue home medications obtain collateral referral to outpatient psychiatric providers encourage groups discharge planning Patient educated on: therapeutic strategies Reason for continued inpatient stay Substantial Risk for: rapid decompensation Time Spent With Patient Time: Total time managing care of this patient today ____ minutes.
--- NOTE | 2024-08-13 11:28 | PC.NURSE ---
08/12/24 pt signed 3 day notice. Up on thursday 08/17 , SW, UR aware
[2024-08-13 20:00] VITALS: BP 133/88; PULSE 105; TEMP 36.6; O2SAT 97
[2024-08-14 08:00] VITALS: BP 124/64; PULSE 110; RESP 18; TEMP 36.8; O2SAT 95
--- NOTE | 2024-08-14 08:25 | HO.PSYCHPN ---
Subjective Subjective Date of Service: 08/14/24 Reason For Visit: PTSD Schizoaffective Disorder Polysubstance Use Interim History: Met with patient. Discussed with nursing. Three-day notice expires after the weekend. Patient reports doing okay. Mood okay. Denies depression. Looking forward to discharge after the weekend, but also hopeful she can review options with social work around disposition planning in the context of being on housed. Reports they can not go to [facility] or [facility] is also not an option. No med concerns. In the milieu. Medication Compliance: Yes Side effects from medications: No Attending Groups: Intermittent Review of Systems Acute medical concerns: No Review of Systems Review of Systems Unremarkable Mental Status Exam Mental Status Exam Narrative: Appearance: Casually dressed, adequate hygiene Behavior: Calm and cooperative throughout the interview. Eye contact is appropriate, and there are no signs of psychomotor agitation or retardation Speech: Normal volume and prosody Thought process: Logical and goal-directed Thought content: Future oriented no self-harming thoughts Mood: Good Affect: Constricted SI:denies HI:denies VH/AH:none Delusions: None Insight/judgment: Fair insight and judgment Memory/cog: Alert, oriented x 4. grossly intact to conversational testing Diagnostics Vital Signs (24Hr): Vital Signs - 24 hr 08/13/24 08:27 08/13/24 20:00 08/14/24 08:00 Temperature 98 F 97.8 F 98.2 F Pulse Rate 92 105 H 110 H Respiratory Rate 16 18 Blood Pressure 130/80 133/88 124/64 Pulse Oximetry 96 97 95 Oxygen Delivery Method Room Air Room Air Room Air BMI result Body Mass Index 35.6 Labs 08/09/24 23:46 08/09/24 23:46 Labs: Laboratory Results - last 48 hr 08/13/24 07:52 Estimat Average Glucose 143 Hemoglobin A1c % 6.6 H Magnesium 1.8 Triglycerides 395 H Cholesterol 251 H LDL Cholesterol, Calc 129 H HDL Cholesterol 43 Vitamin B12 265 Folate 6.8 TSH 3.04 Free T4 0.96 Medications Medications Current Medications Acetaminophen (Acetaminophen 325 Mg Tablet) 650 mg PO Q6H PRN PRN Reason: Headache/Pain, Scale 1-10 Last Admin: 08/13/24 22:26 Dose: 650 mg Al Hydroxide/Mg Hydroxide (Magnesium Hydrox/Alum Hydrox 30 Ml Oral.Susp) 30 ml PO Q6H PRN PRN Reason: Heartburn/Nausea Clonidine HCl (Clonidine Hcl 0.1 Mg Tablet) 0.1 mg PO BID PRN; Protocol PRN Reason: Anxiety Clotrimazole (Clotrimazole 1 % Cream 15 Gm Tube) 1 appl TOPICAL BID [facility]; Protocol Last Admin: 08/13/24 23:10 Dose: 1 appl Haloperidol (Haloperidol 1 Mg Tablet) 2 mg PO BEDTIME [facility] Last Admin: 08/13/24 21:29 Dose: 2 mg Hydroxyzine HCl (Hydroxyzine Hcl 25 Mg Tablet) 25 mg PO Q6H PRN PRN Reason: mild anxiety Loratadine (Loratadine 10 Mg Tablet) 10 mg PO DAILY [facility] Last Admin: 08/13/24 08:25 Dose: 10 mg Magnesium Hydroxide (Milk Of Magnesia 30 Ml Oral.Susp) 30 ml PO DAILY PRN PRN Reason: Constipation Nicotine Polacrilex (Nicotine Polacrilex 2 Mg Gum) 4 mg BUCCAL Q2H PRN PRN Reason: Nicotine Cravings Olanzapine (Olanzapine 5 Mg Tablet) 5 mg PO Q4H PRN PRN Reason: agitation Last Admin: 08/12/24 21:17 Dose: 5 mg Quetiapine Fumarate (Quetiapine Fumarate 50 Mg Tablet) 50 mg PO BEDTIME [facility] Last Admin: 08/13/24 21:33 Dose: 50 mg Topiramate (Topiramate 25 Mg Tablet) 25 mg PO BID [facility] Last Admin: 08/13/24 21:31 Dose: 25 mg Topiramate (Topiramate 25 Mg Tablet) 100 mg PO BEDTIME [facility] Last Admin: 08/13/24 21:32 Dose: 100 mg Trazodone HCl (Trazodone Hcl 50 Mg Tablet) 50 mg PO BEDTIME MRX1 PRN PRN Reason: Insomnia Last Admin: 08/13/24 23:32 Dose: 50 mg Zinc Acetate/Diphenhydramine (Diphenhydramine Hcl 2 % Cream 28 Gm Tube) 1 appl TOPICAL TID PRN PRN Reason: Itching Stop: 08/16/24 23:59 Last Admin: 08/10/24 22:23 Dose: 1 appl Allergies Allergies Allergy/AdvReac Type Severity Reaction Status Date / Time dog dander (DOG DANDER) Allergy Intermediate ITCHY EYES Verified 08/09/24 20:45 pollen extracts (POLLEN) Allergy Intermediate STUFFY, Verified 08/09/24 20:45 ITCHY EYES Pork/Porcine Containing Allergy Itching Verified 08/09/24 20:45 Products Assessment & Plan Assessment & Plan (1) Schizoaffective disorder, bipolar type: Status: Acute Code(s): F25.0 - Schizoaffective disorder, bipolar type (2) PTSD (post-traumatic stress disorder): Status: Acute Code(s): F43.10 - Post-traumatic stress disorder, unspecified (3) Homelessness: Status: Acute Code(s): Z59.00 - Homelessness unspecified Plan Plan Patient is a 39-year-old female with history schizoaffective disorder, PTSD, opiate use disorder, cocaine use d/o and alcohol use disorder who presented to [facility] via ambulance due to complaining of feeling angry and suicidal secondary to medication noncompliance. 08/12: Patient states that she is a lot better than yesterday. She notes that she has been taking her medications, sleeping well, and attending groups. She currently denies anxiety or depression. She reports mood swings and states that her mood is stable on Haldol, which she was on at her last hospitalization here. She requests to restart Haldol. She denies SI/HI/AH/VH. Haldol 2 mg daily at bedtime ordered; advised to take as prescribed; instructed on the risks, benefits, and potential adverse reactions of the medication. Continue current treatment regimen. 08/13: Patient states that she feels good. She slept well last night. She has been taking her medications as prescribed and attending groups. She denies anxiety or depession. She denies SI/HI/AH/VH. Continue current treatment regimen. 08/14/2024: No changes to current regimen. Three-day notice expires after the weekend Plan: CV 15 minute safety checks continue home medications obtain collateral referral to outpatient psychiatric providers encourage groups discharge planning Reason for continued inpatient stay Substantial Risk for: rapid decompensation Time Spent With Patient Time: Total time managing care of this patient today ____ minutes.
[2024-08-14] MEDS: Clotrimazole 1 % Cream 15 GM TUBE 1 APPL TOPICAL ×2 (08:52→21:17)
[2024-08-14 20:00] VITALS: BP 135/76; PULSE 98; RESP 18; TEMP 36.5; O2SAT 98
--- NOTE | 2024-08-15 07:29 | P.PNPSI_ITS ---
Subjective Subjective Date of Service: 08/15/24 Reason For Visit: PTSD Schizoaffective Disorder Polysubstance Use Interim History: Met with patient. Discussed with nursing. Sleeping this AM- no issues and will enage with caption writer tomorrow. Three-day notice expires after the weekend. . Medication Compliance: Yes Side effects from medications: No Attending Groups: No Review of Systems Acute medical concerns: No Review of Systems Review of Systems Unremarkable Mental Status Exam Mental Status Exam Narrative: Appearance: Casually dressed, adequate hygiene Behavior: Calm and cooperative throughout the interview. Eye contact is appropriate, and there are no signs of psychomotor agitation or retardation Speech: Normal volume and prosody Thought process: Logical and goal-directed Thought content: Future oriented no self-harming thoughts Mood: OK Affect: Constricted SI:None noted HI: NOne noted VH/AH:none Delusions: None Insight/judgment: Fair insight and judgment Memory/cog: Alert, oriented x 4. grossly intact to conversational testing Diagnostics Vital Signs (24Hr): Vital Signs - 24 hr 08/14/24 08:00 08/14/24 20:00 Temperature 98.2 F 97.7 F Pulse Rate 110 H 98 Respiratory Rate 18 18 Blood Pressure 124/64 135/76 Pulse Oximetry 95 98 Oxygen Delivery Method Room Air Room Air BMI result Body Mass Index 35.6 Labs 08/09/24 23:46 08/09/24 23:46 Labs: Laboratory Results - last 48 hr 08/13/24 07:52 Estimat Average Glucose 143 Hemoglobin A1c % 6.6 H Magnesium 1.8 Triglycerides 395 H Cholesterol 251 H LDL Cholesterol, Calc 129 H HDL Cholesterol 43 Vitamin B12 265 Folate 6.8 TSH 3.04 Free T4 0.96 Medications Medications Current Medications Acetaminophen (Acetaminophen 325 Mg Tablet) 650 mg PO Q6H PRN PRN Reason: Headache/Pain, Scale 1-10 Last Admin: 08/14/24 20:53 Dose: 650 mg Al Hydroxide/Mg Hydroxide (Magnesium Hydrox/Alum Hydrox 30 Ml Oral.Susp) 30 ml PO Q6H PRN PRN Reason: Heartburn/Nausea Clonidine HCl (Clonidine Hcl 0.1 Mg Tablet) 0.1 mg PO BID PRN; Protocol PRN Reason: Anxiety Clotrimazole (Clotrimazole 1 % Cream 15 Gm Tube) 1 appl TOPICAL BID ENRIKE; Protocol Last Admin: 08/14/24 21:17 Dose: 1 appl Haloperidol (Haloperidol 1 Mg Tablet) 2 mg PO BEDTIME [facility] Last Admin: 08/14/24 20:51 Dose: 2 mg Hydroxyzine HCl (Hydroxyzine Hcl 25 Mg Tablet) 25 mg PO Q6H PRN PRN Reason: mild anxiety Loratadine (Loratadine 10 Mg Tablet) 10 mg PO DAILY [facility] Last Admin: 08/14/24 08:44 Dose: 10 mg Magnesium Hydroxide (Milk Of Magnesia 30 Ml Oral.Susp) 30 ml PO DAILY PRN PRN Reason: Constipation Nicotine Polacrilex (Nicotine Polacrilex 2 Mg Gum) 4 mg BUCCAL Q2H PRN PRN Reason: Nicotine Cravings Olanzapine (Olanzapine 5 Mg Tablet) 5 mg PO Q4H PRN PRN Reason: agitation Last Admin: 08/12/24 21:17 Dose: 5 mg Quetiapine Fumarate (Quetiapine Fumarate 50 Mg Tablet) 50 mg PO BEDTIME [facility] Last Admin: 08/14/24 20:51 Dose: 50 mg Topiramate (Topiramate 25 Mg Tablet) 25 mg PO BID [facility] Last Admin: 08/14/24 20:52 Dose: Not Given Topiramate (Topiramate 25 Mg Tablet) 100 mg PO BEDTIME [facility] Last Admin: 08/14/24 20:52 Dose: 100 mg Trazodone HCl (Trazodone Hcl 50 Mg Tablet) 50 mg PO BEDTIME MRX1 PRN PRN Reason: Insomnia Last Admin: 08/14/24 20:53 Dose: 50 mg Zinc Acetate/Diphenhydramine (Diphenhydramine Hcl 2 % Cream 28 Gm Tube) 1 appl TOPICAL TID PRN PRN Reason: Itching Stop: 08/16/24 23:59 Last Admin: 08/10/24 22:23 Dose: 1 appl Allergies Allergies Allergy/AdvReac Type Severity Reaction Status Date / Time dog dander (DOG DANDER) Allergy Intermediate ITCHY EYES Verified 08/09/24 20:45 pollen extracts (POLLEN) Allergy Intermediate STUFFY, Verified 08/09/24 20:45 ITCHY EYES Pork/Porcine Containing Allergy Itching Verified 08/09/24 20:45 Products Assessment & Plan Assessment & Plan (1) Schizoaffective disorder, bipolar type: Status: Acute Code(s): F25.0 - Schizoaffective disorder, bipolar type (2) PTSD (post-traumatic stress disorder): Status: Acute Code(s): F43.10 - Post-traumatic stress disorder, unspecified (3) Homelessness: Status: Acute Code(s): Z59.00 - Homelessness unspecified Plan Plan Patient is a 39-year-old female with history schizoaffective disorder, PTSD, opiate use disorder, cocaine use d/o and alcohol use disorder who presented to [facility] [place] [place] ER via ambulance due to complaining of feeling angry and suicidal secondary to medication noncompliance. 08/12: Patient states that she is a lot better than yesterday. She notes that she has been taking her medications, sleeping well, and attending groups. She currently denies anxiety or depression. She reports mood swings and states that her mood is stable on Haldol, which she was on at her last hospitalization here. She requests to restart Haldol. She denies SI/HI/AH/VH. Haldol 2 mg daily at bedtime ordered; advised to take as prescribed; instructed on the risks, benefits, and potential adverse reactions of the medication. Continue current treatment regimen. 08/13: Patient states that she feels good. She slept well last night. She has been taking her medications as prescribed and attending groups. She denies anxiety or depession. She denies SI/HI/AH/VH. Continue current treatment regimen. 08/14/2024: No changes to current regimen. Three-day notice expires after the weekend 08/15: no changes Plan: CV 15 minute safety checks continue home medications obtain collateral referral to outpatient psychiatric providers encourage groups discharge planning Reason for continued inpatient stay Substantial Risk for: rapid decompensation Time Spent With Patient Time: Total time managing care of this patient today ____ minutes.
[2024-08-15 08:00] VITALS: BP 105/72; PULSE 77; RESP 18; TEMP 36.1; O2SAT 95
[2024-08-15] MEDS: Clotrimazole 1 % Cream 15 GM TUBE 1 APPL TOPICAL ×2 (08:32→21:05)
[2024-08-15 20:00] VITALS: BP 112/56; PULSE 82; TEMP 37.1; O2SAT 97
[2024-08-15] MEDS: Magnesium Hydrox/Alum Hydrox 30 ML ORAL.SUSP PO (20:08)
[2024-08-16 08:00] VITALS: BP 100/64; PULSE 97; RESP 18; TEMP 37.1; O2SAT 96
[2024-08-16] MEDS: Clotrimazole 1 % Cream 15 GM TUBE 1 APPL TOPICAL ×2 (08:32→21:32)
--- NOTE | 2024-08-16 11:05 | HO.PSYCHPN ---
Subjective Subjective Date of Service: 08/16/24 Reason For Visit: PTSD Schizoaffective Disorder Polysubstance Use Interim History: Met with patient. Discussed with nursing. Sleeping this AM and isolative. Wants help from social work ref RMV issue and senior care supports. Three-day notice expires after the weekend. . Medication Compliance: Yes Side effects from medications: No Attending Groups: No Review of Systems Acute medical concerns: No Review of Systems Review of Systems Unremarkable Mental Status Exam Mental Status Exam Narrative: Appearance: Casually dressed, adequate hygiene, in room Behavior: Calm and cooperative throughout the interview. Eye contact is appropriate, and there are no signs of psychomotor agitation or retardation Speech: Normal volume and prosody Thought process: Logical and goal-directed Thought content: Future oriented no self-harming thoughts Mood: OK Affect: Constricted SI:None noted HI: NOne noted VH/AH:none Delusions: None Insight/judgment: Fair insight and judgment Memory/cog: Alert, oriented x 4. grossly intact to conversational testing Diagnostics Vital Signs (24Hr): Vital Signs - 24 hr 08/15/24 20:00 08/16/24 08:00 Temperature 98.7 F 98.7 F Pulse Rate 82 97 Respiratory Rate 18 Blood Pressure 112/56 L 100/64 Pulse Oximetry 97 96 Oxygen Delivery Method Room Air Room Air BMI result Body Mass Index 35.6 Labs 08/09/24 23:46 08/09/24 23:46 Medications Medications Current Medications Acetaminophen (Acetaminophen 325 Mg Tablet) 650 mg PO Q6H PRN PRN Reason: Headache/Pain, Scale 1-10 Last Admin: 08/15/24 21:15 Dose: 650 mg Al Hydroxide/Mg Hydroxide (Magnesium Hydrox/Alum Hydrox 30 Ml Oral.Susp) 30 ml PO Q6H PRN PRN Reason: Heartburn/Nausea Last Admin: 08/15/24 20:08 Dose: 30 ml Clonidine HCl (Clonidine Hcl 0.1 Mg Tablet) 0.1 mg PO BID PRN; Protocol PRN Reason: Anxiety Clotrimazole (Clotrimazole 1 % Cream 15 Gm Tube) 1 appl TOPICAL BID ENRIKE; Protocol Last Admin: 08/16/24 08:32 Dose: 1 appl Haloperidol (Haloperidol 1 Mg Tablet) 2 mg PO BEDTIME [facility] Last Admin: 08/15/24 21:00 Dose: 2 mg Hydroxyzine HCl (Hydroxyzine Hcl 25 Mg Tablet) 25 mg PO Q6H PRN PRN Reason: mild anxiety Last Admin: 08/15/24 18:25 Dose: 25 mg Loratadine (Loratadine 10 Mg Tablet) 10 mg PO DAILY [facility] Last Admin: 08/16/24 08:32 Dose: 10 mg Magnesium Hydroxide (Milk Of Magnesia 30 Ml Oral.Susp) 30 ml PO DAILY PRN PRN Reason: Constipation Nicotine Polacrilex (Nicotine Polacrilex 2 Mg Gum) 4 mg BUCCAL Q2H PRN PRN Reason: Nicotine Cravings Olanzapine (Olanzapine 5 Mg Tablet) 5 mg PO Q4H PRN PRN Reason: agitation Last Admin: 08/15/24 18:25 Dose: 5 mg Quetiapine Fumarate (Quetiapine Fumarate 50 Mg Tablet) 50 mg PO BEDTIME [facility] Last Admin: 08/15/24 21:01 Dose: 50 mg Topiramate (Topiramate 25 Mg Tablet) 25 mg PO BID [facility] Last Admin: 08/16/24 08:32 Dose: 25 mg Topiramate (Topiramate 25 Mg Tablet) 100 mg PO BEDTIME [facility] Last Admin: 08/15/24 21:02 Dose: 100 mg Trazodone HCl (Trazodone Hcl 50 Mg Tablet) 50 mg PO BEDTIME MRX1 PRN PRN Reason: Insomnia Last Admin: 08/15/24 21:56 Dose: 50 mg Zinc Acetate/Diphenhydramine (Diphenhydramine Hcl 2 % Cream 28 Gm Tube) 1 appl TOPICAL TID PRN PRN Reason: Itching Stop: 08/16/24 23:59 Last Admin: 08/10/24 22:23 Dose: 1 appl Allergies Allergies Allergy/AdvReac Type Severity Reaction Status Date / Time dog dander (DOG DANDER) Allergy Intermediate ITCHY EYES Verified 08/09/24 20:45 pollen extracts (POLLEN) Allergy Intermediate STUFFY, Verified 08/09/24 20:45 ITCHY EYES Pork/Porcine Containing Allergy Itching Verified 08/09/24 20:45 Products Assessment & Plan Assessment & Plan (1) Schizoaffective disorder, bipolar type: Status: Acute Code(s): F25.0 - Schizoaffective disorder, bipolar type (2) PTSD (post-traumatic stress disorder): Status: Acute Code(s): F43.10 - Post-traumatic stress disorder, unspecified (3) Homelessness: Status: Acute Code(s): Z59.00 - Homelessness unspecified Plan Plan Patient is a 39-year-old female with history schizoaffective disorder, PTSD, opiate use disorder, cocaine use d/o and alcohol use disorder who presented to [facility] [place] ambulance due to complaining of feeling angry and suicidal secondary to medication noncompliance. 08/12: Patient states that she is a lot better than yesterday. She notes that she has been taking her medications, sleeping well, and attending groups. She currently denies anxiety or depression. She reports mood swings and states that her mood is stable on Haldol, which she was on at her last hospitalization here. She requests to restart Haldol. She denies SI/HI/AH/VH. Haldol 2 mg daily at bedtime ordered; advised to take as prescribed; instructed on the risks, benefits, and potential adverse reactions of the medication. Continue current treatment regimen. 08/13: Patient states that she feels good. She slept well last night. She has been taking her medications as prescribed and attending groups. She denies anxiety or depession. She denies SI/HI/AH/VH. Continue current treatment regimen. 08/14/2024: No changes to current regimen. Three-day notice expires after the weekend 08/15: no changes 08/16: no changes. Wants SW help ref RMV concerns and senior care supports Plan: CV 15 minute safety checks continue home medications obtain collateral referral to outpatient psychiatric providers encourage groups discharge planning Reason for continued inpatient stay Substantial Risk for: rapid decompensation Time Spent With Patient Time: Total time managing care of this patient today ____ minutes.
[2024-08-16 20:00] VITALS: BP 115/67; PULSE 95; RESP 16; TEMP 37.1; O2SAT 97
[2024-08-17 08:00] VITALS: BP 101/56; PULSE 85; RESP 16; TEMP 36.8; O2SAT 95
--- NOTE | 2024-08-17 09:40 | P.PNPSI_ITS ---
Subjective Subjective Date of Service: 08/17/24 Reason For Visit: PTSD Schizoaffective Disorder Polysubstance Use Subjective Notes: Conditional Voluntary and 3 Day Healthcare Proxy: No Guardianship: No Medical Problems Affecting Mental Status: No Interim History: Pt denies SI,HI,AH,VH. There are no sx of acute brissa or psychosis Her three day notice will on 08/18. She is calling [facility] regularly to secure a [facility] bed She is making arrangements to update her ID with [facility] Team has made her follow up appts and she reports she is prepared to discharge. Medication Compliance: Yes Side effects from medications: No Attending Groups: Yes Review of Systems Acute medical concerns: No Medical Review of Systems: unchanged Review of Systems Review of Systems Denies Mental Status Exam Mental Status Exam Patient Appearance: Appropriate Patient Orientation: Person, Place, Time and Situation Level of Consciousness: Alert Patient Behavior: Appropriate, Talkative, Cooperative and Anxious Mood Description: Anxious and Apprehensive Affect Description: Apprehensive Patient Cognition Impaired: No Ability to Follow Directions: Fair Speech Pattern: Clear and Spontaneous Speech Memory Description: Episodic Impaired Hallucinations: None Delusions: Not Present Thought Process: Intact, Distracted and Goal Oriented Thought Content: positive for Intact, positive for Circumstantial, positive for Goal Oriented, positive for Suicidal Ideation (denies) and positive for Homicidal Ideation (denies) Depressive Symptoms: Increased Anxiety Judgement: Good Diagnostics Vital Signs (24Hr): Vital Signs - 24 hr 08/16/24 20:00 08/17/24 08:00 Temperature 98.7 F 98.2 F Pulse Rate 95 85 Respiratory Rate 16 16 Blood Pressure 115/67 101/56 L Pulse Oximetry 97 95 Oxygen Delivery Method Room Air Room Air BMI result Body Mass Index 35.6 Labs 08/09/24 23:46 08/09/24 23:46 Medications Medications Current Medications Acetaminophen (Acetaminophen 325 Mg Tablet) 650 mg PO Q6H PRN PRN Reason: Headache/Pain, Scale 1-10 Last Admin: 08/16/24 21:10 Dose: 650 mg Al Hydroxide/Mg Hydroxide (Magnesium Hydrox/Alum Hydrox 30 Ml Oral.Susp) 30 ml PO Q6H PRN PRN Reason: Heartburn/Nausea Last Admin: 08/15/24 20:08 Dose: 30 ml Clonidine HCl (Clonidine Hcl 0.1 Mg Tablet) 0.1 mg PO BID PRN; Protocol PRN Reason: Anxiety Clotrimazole (Clotrimazole 1 % Cream 15 Gm Tube) 1 appl TOPICAL BID [facility]; Protocol Last Admin: 08/17/24 08:14 Dose: Not Given Haloperidol (Haloperidol 1 Mg Tablet) 2 mg PO BEDTIME [facility] Last Admin: 08/16/24 20:56 Dose: 2 mg Hydroxyzine HCl (Hydroxyzine Hcl 25 Mg Tablet) 25 mg PO Q6H PRN PRN Reason: mild anxiety Last Admin: 08/15/24 18:25 Dose: 25 mg Loratadine (Loratadine 10 Mg Tablet) 10 mg PO DAILY [facility] Last Admin: 08/17/24 08:14 Dose: 10 mg Magnesium Hydroxide (Milk Of Magnesia 30 Ml Oral.Susp) 30 ml PO DAILY PRN PRN Reason: Constipation Nicotine Polacrilex (Nicotine Polacrilex 2 Mg Gum) 4 mg BUCCAL Q2H PRN PRN Reason: Nicotine Cravings Olanzapine (Olanzapine 5 Mg Tablet) 5 mg PO Q4H PRN PRN Reason: agitation Last Admin: 08/15/24 18:25 Dose: 5 mg Quetiapine Fumarate (Quetiapine Fumarate 50 Mg Tablet) 50 mg PO BEDTIME [facility] Last Admin: 08/16/24 20:56 Dose: 50 mg Topiramate (Topiramate 25 Mg Tablet) 25 mg PO BID [facility] Last Admin: 08/17/24 08:14 Dose: 25 mg Topiramate (Topiramate 25 Mg Tablet) 100 mg PO BEDTIME [facility] Last Admin: 08/16/24 20:57 Dose: 100 mg Trazodone HCl (Trazodone Hcl 50 Mg Tablet) 50 mg PO BEDTIME MRX1 PRN PRN Reason: Insomnia Last Admin: 08/16/24 21:10 Dose: 50 mg Allergies Allergies Allergy/AdvReac Type Severity Reaction Status Date / Time dog dander (DOG DANDER) Allergy Intermediate ITCHY EYES Verified 08/09/24 20:45 pollen extracts (POLLEN) Allergy Intermediate STUFFY, Verified 08/09/24 20:45 ITCHY EYES Pork/Porcine Containing Allergy Itching Verified 08/09/24 20:45 Products Assessment & Plan Assessment & Plan (1) Schizoaffective disorder, bipolar type: Status: Acute Code(s): F25.0 - Schizoaffective disorder, bipolar type (2) PTSD (post-traumatic stress disorder): Status: Acute Code(s): F43.10 - Post-traumatic stress disorder, unspecified (3) Homelessness: Status: Acute Code(s): Z59.00 - Homelessness unspecified Plan Plan Patient is a 39-year-old female with history schizoaffective disorder, PTSD, opiate use disorder, cocaine use d/o and alcohol use disorder who presented to [facility] [place] [facility] via ambulance due to complaining of feeling angry and suicidal secondary to medication noncompliance. 08/12: Patient states that she is a lot better than yesterday. She notes that she has been taking her medications, sleeping well, and attending groups. She currently denies anxiety or depression. She reports mood swings and states that her mood is stable on Haldol, which she was on at her last hospitalization here. She requests to restart Haldol. She denies SI/HI/AH/VH. Haldol 2 mg daily at bedtime ordered; advised to take as prescribed; instructed on the risks, benefits, and potential adverse reactions of the medication. Continue current treatment regimen. 08/13: Patient states that she feels good. She slept well last night. She has been taking her medications as prescribed and attending groups. She denies anxiety or depession. She denies SI/HI/AH/VH. Continue current treatment regimen. 08/14/2024: No changes to current regimen. Three-day notice expires after the weekend 08/15: no changes 08/16: no changes. Wants SW help ref RMV concerns and [facility] supports 08/17: Discharge 08/18. Plan: CV 15 minute safety checks continue home medications obtain collateral referral to outpatient psychiatric providers encourage groups discharge planning Patient educated on: medication risk/benefits Informed Consent: understands Reason for continued inpatient stay Substantial Risk for: stable for discharge Time Spent With Patient Time: Total time managing care of this patient today ____ minutes.
[2024-08-17 20:00] VITALS: BP 132/72; PULSE 114; RESP 16; TEMP 36.5; O2SAT 97
[2024-08-18 08:21] VITALS: BP 104/63; PULSE 85; RESP 17; TEMP 36.5; O2SAT 97
--- NOTE | 2024-08-18 09:49 | PM.PSYDC ---
DS: Providers Provider Date of admission: 08/11/24 11:16 Primary care physician: Edwige Chang MD DS: Diagnosis Discharge Diagnosis (1) Schizoaffective disorder, bipolar type: Status: Acute (2) PTSD (post-traumatic stress disorder): Status: Acute (3) Homelessness: Status: Acute DS: Medications Discharge Medications Home Medications: Home Medications ?Medication ?Instructions ?Recorded ?Confirmed phenazopyridine 99.5 mg tablet 99.5 mg PO TID PRN Urinary 08/10/24 08/10/24 (Azo Urinary Pain Relief) Retention Previous Rx's ?Medication ?Instructions ?Recorded acetaminophen 325 mg tablet 650 mg (2 x 325 mg) PO Q6H PRN 08/18/24 Headache/Pain, Scale 1-10 #0 tabs cetirizine 10 mg tablet 10 mg PO DAILY #30 tabs 08/18/24 clonidine HCl 0.1 mg tablet 0.1 mg PO BID PRN Anxiety #60 tabs 08/18/24 clotrimazole 1 % topical cream 1 appl topical BID #21 grams 08/18/24 haloperidol 1 mg tablet 2 mg (2 x 1 mg) PO BEDTIME #60 tabs 08/18/24 hydroxyzine HCl 25 mg tablet 25 mg PO Q6H PRN mild anxiety #14 08/18/24 tabs naloxone 4 mg/actuation nasal 4 mg intranasal Q2M PRN opioid 08/18/24 spray (Narcan) overdose #2 ea olanzapine 5 mg tablet 5 mg PO Q4H PRN agitation #15 tabs 08/18/24 quetiapine 50 mg tablet 50 mg PO BEDTIME #30 tabs 08/18/24 topiramate 50 mg tablet 25 mg (1/2 x 50 mg) PO BID #15 tabs 08/18/24 topiramate 50 mg tablet 100 mg (2 x 50 mg) PO BEDTIME #60 08/18/24 tabs trazodone 50 mg tablet 50 mg PO BEDTIME MRX1 PRN Insomnia 08/18/24 #15 tabs Data Data Completed and Pending Completed studies during hospitalization [Text1]: 08/13/24 07:52 Estimat Average Glucose 143 Hemoglobin A1c % 6.6 H Magnesium 1.8 Triglycerides 395 H Cholesterol 251 H LDL Cholesterol, Calc 129 H HDL Cholesterol 43 Vitamin B12 265 Folate 6.8 TSH 3.04 Free T4 0.96 DS: Summary Time Spent with Patient Time attestation: Total time managing care of this patient today ____ minutes. Discharge Plan Discharge Anticipated Discharge Date/Time: 08/18/24 12:00 Patient Disposition: Penitentiary Discharge Diagnosis: Schizoaffective Disorder PTSD Polysubstance Use Disorder Anxiety Homelessness Referrals: [facility] Dr. Chang [Other] - 09/18/24 10:40 am Referral Note: Hospital follow up. [facility] Dr. Chang [Other] - 09/08/24 11:30 am Referral Note: This appointment is in person. [facility] [Other] - 08/18/24 2:00 pm Referral Note: Ask about their case management support and other opportunities for chcf options. Discharge Medications: New acetaminophen 325 mg Tablet 650 mg PO Q6H PRN (Reason: Headache/Pain, Scale 1-10) Qty: 0 0RF trazodone 50 mg Tablet 50 mg PO BEDTIME MRX1 PRN (Reason: Insomnia) Qty: 15 1RF olanzapine 5 mg Tablet 5 mg PO Q4H PRN (Reason: agitation) Qty: 15 0RF haloperidol 1 mg Tablet 2 mg PO BEDTIME Qty: 60 0RF hydroxyzine HCl 25 mg Tablet 25 mg PO Q6H PRN (Reason: mild anxiety) Qty: 14 1RF naloxone [Narcan] 4 mg/actuation spray,non-aerosol 4 mg intranasal Q2M PRN (Reason: opioid overdose) Qty: 2 0RF Rx Instructions: spray 1 dose into ONE nostril; alternate nostrils w each dose until help arrives Continued Azo Urinary Pain Relief 99.5 mg Tablet 99.5 mg PO TID PRN (Reason: Urinary Retention) Rx Instructions: for 2 days clonidine HCl 0.1 mg Tablet 0.1 mg PO BID PRN (Reason: Anxiety) Qty: 60 0RF cetirizine 10 mg Tablet 10 mg PO DAILY Qty: 30 0RF clotrimazole 1 % Cream 1 appl TOPICAL BID Qty: 21 0RF topiramate 50 mg tablet 100 mg PO BEDTIME Qty: 60 0RF quetiapine 50 mg Tablet 50 mg PO BEDTIME Qty: 30 0RF Changed topiramate 50 mg tablet 25 mg PO BID Qty: 15 0RF Discontinued ibuprofen 200 mg Tablet 400 mg PO Q6H PRN (Reason: Pain) Discharge Orders: Discharge Order (Routine); Ordered 08/18/24 Ordered By: Melva Nicholas Diet: Advance to usual diet Activity on Discharge: As tolerated Stand Alone Forms: Patient Portal Discharge page, Community Support Print Language: Telugu Care Plan Goals: Abstinence from Substances Mood and Behavioral Stabilization Health Concerns: Abstinence from Substances Mood and Behavioral Stabilization Plan of Treatment: Attend scheduled appointments Take medications as directed Call/Return as needed Assessment: Discharge on a three day notice of intent Denies SI,HI,AH,VH No sx of acute brissa or psychosis
== END 2024-08-18 10:51 | disposition home or self-care (01) | DRG 750 ==
LOC: HO.ED 08-10 14:32 → HO.PM5 08-11 11:20
PROVIDERS: Admitting Provider Clinical Nurse Specialist Psychiatric/Mental Health, Adult; Emergency Provider Emergency Medicine; PCP Family Medicine; Visit Provider Clinical Nurse Specialist Psychiatric/Mental Health, Adult
DX: F25.0 Schizoaffective disorder, bipolar type (principal); F19.90 Other psychoactive substance use, unspecified, uncomplicated; F41.9 Anxiety disorder, unspecified; F43.10 Post-traumatic stress disorder, unspecified; Z59.02 Unsheltered homelessness; Z87.891 Personal history of nicotine dependence; Z79.899 Other long term (current) drug therapy
CPT/HCPCS: 36415; 80048; 80061; 80076; 80307; 81001; 81003; 81025; 82607; 82746; 83036; 83735; 84439; 84443; 85025; 93005; 99285; S9485

== ENCOUNTER → 2024-08-10 09:09 | Outpatient (BNV) | payer MEDICAID, SELFPAY | PROVIDERS: Emergency Provider Emergency Medicine; PCP Family Medicine; Visit Provider Internal Medicine Cardiovascular Disease | DX: Z13.6 Encounter for screening for cardiovascular disorders (principal) | CPT/HCPCS: 93010 ==

== ENCOUNTER → 2024-08-11 11:16 | Outpatient (BNV) | payer OTHER, SELFPAY | PROVIDERS: Admitting Provider Clinical Nurse Specialist Psychiatric/Mental Health, Adult; Emergency Provider Emergency Medicine; PCP Family Medicine; Visit Provider Registered Nurse | DX: F25.0 Schizoaffective disorder, bipolar type (principal); F43.11 Post-traumatic stress disorder, acute; Z59.00 Homelessness unspecified | CPT/HCPCS: 99231; 99232; 99233 ==

== ENCOUNTER 2024-08-21 01:14 | Emergency (ER) | payer MEDICAID, SELFPAY ==
--- NOTE | 2024-08-21 01:35 | ED.GENADULT ---
HPI - General Adult General Chief complaint: ETOH/Substance Use Stated complaint: CRACK COCAINE USE 4DAYS Time Seen by Provider: 08/21/24 01:34 Source: patient Mode of arrival: EMS Limitations: no limitations History of Present Illness ED Provider: Van Valentine PA-C HPI narrative: 39-year-old female with history of polysubstance use, schizophrenia, PTSD and bipolar disorder, presents requesting detox from crack cocaine use. Patient states her whole body hurts and has been using crack cocaine that she thinks may have had heroin in it. She states the bottoms of her feet hurt as she has been walking around a lot. Patient is having difficulty following directions and answering questions. MD complaint: requesting detox from crack cocaine Related Data Home Medications ?Medication ?Instructions ?Recorded ?Confirmed phenazopyridine 99.5 mg tablet 99.5 mg PO TID PRN Urinary 08/10/24 08/10/24 (Azo Urinary Pain Relief) Retention Previous Rx's ?Medication ?Instructions ?Recorded acetaminophen 325 mg tablet 650 mg (2 x 325 mg) PO Q6H PRN 08/18/24 Headache/Pain, Scale 1-10 #0 tabs cetirizine 10 mg tablet 10 mg PO DAILY #30 tabs 08/18/24 clonidine HCl 0.1 mg tablet 0.1 mg PO BID PRN Anxiety #60 tabs 08/18/24 clotrimazole 1 % topical cream 1 appl topical BID #21 grams 08/18/24 haloperidol 1 mg tablet 2 mg (2 x 1 mg) PO BEDTIME #60 tabs 08/18/24 hydroxyzine HCl 25 mg tablet 25 mg PO Q6H PRN mild anxiety #14 08/18/24 tabs naloxone 4 mg/actuation nasal 4 mg intranasal Q2M PRN opioid 08/18/24 spray (Narcan) overdose #2 ea olanzapine 5 mg tablet 5 mg PO Q4H PRN agitation #15 tabs 08/18/24 quetiapine 50 mg tablet 50 mg PO BEDTIME #30 tabs 08/18/24 topiramate 50 mg tablet 25 mg (1/2 x 50 mg) PO BID #15 tabs 08/18/24 topiramate 50 mg tablet 100 mg (2 x 50 mg) PO BEDTIME #60 08/18/24 tabs trazodone 50 mg tablet 50 mg PO BEDTIME MRX1 PRN Insomnia 08/18/24 #15 tabs Allergies Allergy/AdvReac Type Severity Reaction Status Date / Time dog dander (DOG DANDER) Allergy Intermediate ITCHY EYES Verified 08/21/24 01:49 pollen extracts (POLLEN) Allergy Intermediate STUFFY, Verified 08/21/24 01:49 ITCHY EYES Pork/Porcine Containing Allergy Itching Verified 08/21/24 01:49 Products Review of Systems Review of Systems: CONST: Negative for fever, body aches and chills. HENT: Negative for neck pain/stiffness, headache, congestion, sore throat, swelling. EYES: Negative for discharge/pain or vision changes. RESP: Negative for cough/hemoptysis and shortness of breath. CV: Negative chest pain, difficulty breathing, palpitations. ABD: Negative pain, nausea, vomiting. : Negative increase frequency, dysuria, blood in urine or stool. MUSC: Negative for muscle aches, edema. POS total body muscle aches, B/L feet pain due to blisters SKIN: Negative rash, lesions/sores. NEURO: Negative headache, dizziness, weakness. Yes all other systems are reviewed and are negative [facility] Past Medical History Attestation statement: The following information was validated with the patient. Source: old records reviewed and nursing notes reviewed Medical History Opioid use disorder Generalized abdominal discomfort Medical clearance for psychiatric admission PTSD (post-traumatic stress disorder) Prediabetes Oligomenorrhea Routine medical exam Anxiety Pseudoseizures Bipolar 1 disorder, manic, moderate Social History Social History Household Members: None Household Members Other:: says has spouse but unhoused Housing: Homeless Do you presently have visiting nurse or other home services: No Unable to assess alcohol history related to: Refusing to respond Alcohol intake: former Patient Tobacco Use Status: Former Tobacco user Tobacco use type: Cigarette Cigarette Packs Per Day: 1 Cigarettes Per Day: 20.0 Years Smoked: Many' e-Cigarette/Vaping Use: Former Use Second Hand Smoke Exposure: No Use of substances other than those prescribed or required for medical reasons: Yes Substance Use Type: Crack/Cocaine and Heroin Advance Directives: No service: No Sexual orientation: Straight/Heterosexual Physical Exam ED Vital Signs: Vital Signs - 24 hr 08/21/24 01:46 08/21/24 04:43 08/21/24 07:26 Temperature 98.3 F 97.8 F 98.1 F Pulse Rate 86 98 92 Respiratory Rate 16 20 15 Blood Pressure 104/53 L 97/51 L 111/67 Pulse Oximetry 96 97 99 Oxygen Delivery Method Room Air Room Air Room Air 08/21/24 10:31 Temperature 98.4 F Pulse Rate 81 Respiratory Rate 17 Blood Pressure 105/59 L Pulse Oximetry 96 Oxygen Delivery Method Room Air BMI result Body Mass Index 35.5 GENERAL APPEARANCE: ?AxOx3, no acute distress. HEENT: ?NC, AT. MMM. EOMI, clear conjunctiva, oropharynx clear. NECK: ?Supple without lymphadenopathy.? No stiffness or restricted ROM. HEART:? Normal rate and regular rhythm, normal S1/S1, no m/r/g LUNGS:? CTAB, moving air well. No crackles or wheezes are heard. ABDOMEN: ?Soft, nontender EXTREMITIES: No lower extremity edema. Pads of R foot white and calloused, L 4th toe white and calloused TTP along these areas, no fluctuance, no drainage, no erythema pedal pulses 2+, feet are warm and well perfused. NEUROLOGICAL: ?Grossly nonfocal. Alert and oriented, moving all 4 extremities. Skin: ?Warm and dry without any rash. Medications Administered Discontinued Medications Generic Name Dose Route Start Last Admin Trade Name Freq PRN Reason Stop Dose Admin Potassium Chloride 10 meq in 100 mls @ 100 mls/hr 08/21/24 03:50 08/21/24 06:32 Potassium Chloride/H20 IV 08/21/24 04:49 Infused ONCE ONE Infusion Potassium Chloride 40 meq 08/21/24 03:50 08/21/24 04:54 Potassium Chloride Er 20 Meq Tab.Er.Prt PO 08/21/24 03:51 40 meq ONCE ONE Administration Medical Decision Making Medical Decision Making MDM Narrative: 39-year-old female with history of polysubstance use, schizophrenia, PTSD and bipolar disorder, presents requesting detox from crack cocaine use. Patient states her whole body hurts and has been using crack cocaine that she thinks may have had heroin in it. She states the bottoms of her feet hurt as she has been walking around a lot. Patient is having difficulty following directions and answering questions. VSS, in no acute distress, nontoxic appearing. Patient has hard time following directions or answering questions at this time, however denies SI/HI. Patient states ?all my muscles hurt on my body?, bilateral feet with white calluses over the pads tender to palpation along these areas, no fluctuance, no drainage, DP 2+. EKG normal sinus rhythm without arrhythmia, patient without chest pain. Currently awaiting labs, urine drug screen. Course 03:56- labs reveal hypokalemia of 2.9, patient being repleted with 40 mEq oral potassium, 10 mEq use IV potassium 1 time. All other labs WNL. Will check potassium after repletion. 04:39- Patient signed out to my colleague Dr. Leesa Batista who will resume care of the patient. Patient updated on change of provider. Differential Diagnosis Differential Diagnoses: The differential diagnosis associated with the presentation includes Crack cocaine intoxication Opiate intoxication Electrolyte derangement Admission/Observation Consideration of admission/observation: Escalation of care including admission/observation considered Consult Healthcare Provider Management of the patient was discussed with: Intermediate Manager (CARE team consult) Lab Data [facility] Lab Attestation statement: I reviewed the patient's lab results. 08/21/24 03:01 08/21/24 06:45 Labs: Lab Results 08/21/24 08/21/24 08/21/24 Range/Units 03:01 05:04 06:45 WBC 6.2 (4.8-10.8) X10*3/uL RBC 4.32 (4.20-5.50) X10*6/uL Hgb 10.9 L (12.0-16.0) g/dl Hct 32.4 L (37.0-47.0) % MCV 75.0 L (80.0-98.0) fL MCH 25.2 L (27.0-33.0) pg MCHC 33.6 (31.0-35.0) g/dl RDW 16.2 H (11.0-16.0) % Plt Count 261 (160-400) X10*3/uL MPV 9.5 (9.4-12.3) fL Immature Gran % (Auto) 0.5 H (0.0-0.4) % Neut % (Auto) 54.1 (45-73) % Lymph % (Auto) 32.2 (20-40) % [place] % (Auto) 9.3 (2-11) % Eos % (Auto) 3.1 (0-4) % Baso % (Auto) 0.8 (0-2) % Lymph # (Auto) 2.0 (1.2-4.9) X10*3/uL [place] # (Auto) 0.6 (0.1-1.2) X10*3/uL Eos # (Auto) 0.2 (0.0-0.4) X10*3/uL Baso # (Auto) 0.1 (0.0-0.2) X10*3/uL Abs Immat Gran (auto) 0.03 (0.00-0.03) X10*3/uL Absolute Neuts (auto) 3.3 (2.0-8.3) x10*3/uL Absolute Nucleated RBC 0.000 (0.0-0.012) X10*3/uL Nucleated RBC % (auto) 0.0 (0.0-0.2) /100WBC Sodium 138 (135-145) mmol/L Potassium 2.9 L* 3.2 L (3.3-5.1) mmol/L Chloride 104 (96-108) mmol/L Carbon Dioxide 23 (22-29) mmol/L Anion Gap 14 (12-20) BUN 20 H (9-16) mg/dL Creatinine 0.92 (0.5-1.4) mg/dL Estim Creat Clear Calc 96.8 Estimated GFR > 60 Random Glucose 134 H (60-115) mg/dL Calcium 8.7 D (8.4-10.2) mg/dL Magnesium 2.1 (1.6-2.6) mg/dL Total Bilirubin 0.4 (0.0-1.0) mg/dL AST 43 H (5-31) U/L ALT 36 H (0-31) U/L Alkaline Phosphatase 62 (39-117) U/L Total Protein 6.8 (6.5-8.0) g/dL Albumin 4.2 (3.5-5.0) g/dL Beta HCG, Quant < 2 mIU/mL Urine Opiates Screen Not Detected (Not Detect) Ur Buprenorphine Scrn Not Detected (Not Detect) ng/mL Ur Oxycodone Screen Not Detected (Not Detect) ng/mL Urine Methadone Screen Not Detected (Not Detect) ng/mL Urine Fentanyl Screen POSITIVE H (Not Detect) Ur Barbiturates Screen Not Detected (Not Detect) Ur Phencyclidine Scrn Not Detected (Not Detect) Ur Amphetamines Screen Not Detected (Not Detect) U Benzodiazepines Scrn Not Detected (Not Detect) Urine Cocaine Screen POSITIVE H (Not Detect) U Marijuana (THC) Screen Not Detected (Not Detect) Independent Interpretation I performed an independent interpretation of an: EKG Interpretation: I independently interpreted the EKG: Vent. Rate : 85 BPM Atrial Rate : 85 BPM P-R Int : 140 ms QRS Dur : 80 ms QT Int : 380 ms P-R-T Axes : 56 65 28 degrees QTcB Int : 452 ms Normal sinus rhythm Normal ECG External Record Review External record reviewed: Inpatient record, Office record and Outpatient record Chronic Conditions Patient?s care impacted by: Other (Cocaine use disorder, bipolar disorder, PTSD,) Discharge Plan Discharge Clinical Impression: Substance abuse, Acute hypokalemia Patient Disposition: Xfer Other Transfer Details: Ger[facility] Instructions: Hypokalemia (ED), Polysubstance Use Disorder (ED) Additional Instructions: potassium was low and repleted return for any worsening symptoms or concerns please follow up with Gerardo as planned You were seen in our Emergency Department today for treatment of a behavioral health issue. It is important after your visit that you follow up with either your behavioral health provider or a primary care doctor within 7 days.? If you have trouble finding a therapist you can reach out to [address] [phone] The National Suicide and Crisis Lifeline can be reached 7 days a week 24 hours a day.? Call 988 to speak with someone.? Return for any worsening symptoms or concerns such as thoughts of self harm or harm to others. Please call 911 if you feel your mental health is worsening.? Prescriptions: No Action Azo Urinary Pain Relief 99.5 mg Tablet 99.5 mg PO TID PRN (Reason: Urinary Retention) Rx Instructions: for 2 days acetaminophen 325 mg Tablet 650 mg PO Q6H PRN (Reason: Headache/Pain, Scale 1-10) Qty: 0 0RF trazodone 50 mg Tablet 50 mg PO BEDTIME MRX1 PRN (Reason: Insomnia) Qty: 15 1RF olanzapine 5 mg Tablet 5 mg PO Q4H PRN (Reason: agitation) Qty: 15 0RF haloperidol 1 mg Tablet 2 mg PO BEDTIME Qty: 60 0RF hydroxyzine HCl 25 mg Tablet 25 mg PO Q6H PRN (Reason: mild anxiety) Qty: 14 1RF clonidine HCl 0.1 mg Tablet 0.1 mg PO BID PRN (Reason: Anxiety) Qty: 60 0RF cetirizine 10 mg Tablet 10 mg PO DAILY Qty: 30 0RF clotrimazole 1 % Cream 1 appl TOPICAL BID Qty: 21 0RF topiramate 50 mg tablet 25 mg PO BID Qty: 15 0RF topiramate 50 mg tablet 100 mg PO BEDTIME Qty: 60 0RF quetiapine 50 mg Tablet 50 mg PO BEDTIME Qty: 30 0RF naloxone [Narcan] 4 mg/actuation spray,non-aerosol 4 mg intranasal Q2M PRN (Reason: opioid overdose) Qty: 2 0RF Rx Instructions: spray 1 dose into ONE nostril; alternate nostrils w each dose until help arrives Print Language: Kyrgyz
[2024-08-21 01:46] VITALS: BP 104/53; BP 118/68; PULSE 82; PULSE 86; RESP 16; TEMP 36.8; O2SAT 96; O2SAT 99; BMI 35.5
--- NOTE | 2024-08-21 01:46 | ECG_ITS ---
Test Reason : crack cocaine use Blood Pressure : */* mmHG Vent. Rate : 85 BPM Atrial Rate : 85 BPM P-R Int : 140 ms QRS Dur : 80 ms QT Int : 380 ms P-R-T Axes : 56 65 28 degrees QTcB Int : 452 ms Normal sinus rhythm Normal ECG When compared with ECG of 10-Aug-2024 09:29, No significant change was found Referred By: Serge Araujo Electronically Signed By: Yony Ramos
--- OUTSIDE RECORDS SUMMARY | 2024-08-21 02:00 | XMS_ITS | Clinical Summary ---
Author Organization [facility] Address [address] [place] [address] Phone Care Team Providers Care Package Designer Name Role Phone Edwige Chang MD Primary Care Provider [phone] Allergies No known active allergies Medications fluticasone [...] 88 12/26/2023 12:11 PM EST Temperature 36.6 C (97.9 F) 12/26/2023 12:11 PM EST Respiratory Rate 18 12/26/2023 12:11 PM EST Oxygen Saturation 98% 12/26/2023 12:11 PM EST Inhaled Oxygen Concentration - - Weight 113 kg (250 lb) 12/24/2023 1:03 PM EST Height 167.6 cm (5' 6 ) 12/24/2023 1:03 PM EST Body Mass Index 40.35 12/24/2023 1:03 PM EST Plan of Treatment Health Maintenance Due Date Last Done Comments Breast Cancer Screening 1984 Diabetes: Annual Foot Exam 1994 Diabetes: Annual Retina Eye Exam 1994 Hepatitis A Vaccines (1 of 2 - Risk 2-dose series) 07/02/2003 Hepatitis B Vaccines (1 of 3 - 19+ 3-dose series) 07/02/2003 Pneumococcal Vaccine: Pediatrics (0 to 5 Years) and At-Risk Patients (6 to 49 Years) (1 of 2 - PCV) 07/02/2003 Cervical Cancer Screening: Pap Smear 2005 Social Influencers of Health Screening 01/14/2022 COVID-19 Vaccine ( season) 2023 04/14/2020, 03/14/2020 Diabetes: Annual Urine Albumin-Creatinine Ratio (uACR) 12/24/2023 Diabetes: Blood Sugar Control Test (HGBA1C) 12/24/2023 Depression Screening 06/27/2024 06/28/2023 Influenza Vaccine (#1) 2024 12/01/2010 Diabetes: Annual GFR (Glomerular Filtration [...] LAB CHEMISTRY METHOD 12/24/2023 2:15 PM EST [facility] Potassium 3.9 3.5 - 5.5 mmol/L LAB CHEMISTRY METHOD 12/24/2023 2:15 PM EST [facility] Chloride 105 96 - 110 mmol/L LAB CHEMISTRY METHOD 12/24/2023 2:15 PM EST [facility] CO2 24 21 - 32 mmol/L LAB CHEMISTRY METHOD 12/24/2023 2:15 PM [facility] Anion Gap 9 3 - 11 LAB CHEMISTRY METHOD 12/24/2023 2:15 PM [facility] Glucose 111(H) 70 - 100 mg/dL LAB CHEMISTRY METHOD 12/24/2023 2:15 PM [facility] BUN 13 5 - 25 mg/dL LAB CHEMISTRY METHOD 12/24/2023 2:15 PM [facility] Creatinine 0.81 0.50 - 1.10 mg/dL LAB CHEMISTRY METHOD 12/24/2023 2:15 PM [facility] eGFR 95 >=60 mL/min/1. 73m2 LAB CHEMISTRY METHOD 12/24/2023 2:15 PM [facility] Comment:Calculation based on the Chronic Kidney Disease Epidemiology Collaboration (CKD-EPI) equation refit without adjustment for race. BUN/Creatinine Ratio 16.0 LAB CHEMISTRY METHOD 12/24/2023 2:15 PM [facility] Calcium 10.1 8.5 - 10.5 mg/dL LAB CHEMISTRY METHOD 12/24/2023 2:15 PM [facility] AST (SGOT) 20 10 - 42 unit/L LAB CHEMISTRY METHOD 12/24/2023 2:15 PM [facility] ALT (SGPT) 25 10 - 60 unit/L LAB CHEMISTRY METHOD 12/24/2023 2:15 PM [facility] Alkaline Phosphatase 79 42 - 121 unit/L LAB CHEMISTRY METHOD 12/24/2023 2:15 PM [facility] Total Protein 7.8 6.0 - 8.0 g/dL LAB CHEMISTRY METHOD 12/24/2023 2:15 PM [facility] Albumin 4.2 3.2 - 5.0 g/dL LAB CHEMISTRY METHOD 12/24/2023 2:15 PM [facility] Total Bilirubin 0.4 0.0 - 1.4 mg/dL LAB CHEMISTRY METHOD 12/24/2023 2:15 PM [facility] Blood Venous blood specimen / Unknown Venipuncture / Unknown 12/24/2023 1:21 PM EST 12/24/2023 1:43 PM EST us Francis Cheung DO LAB BLOOD ORDERABLES Final Result [facility] [address] [place] [address], from Last 3 Months or Most Recently Relevant to Health Maintenance Insurance MEDICAID - [place] Care Teams Package Designer Relationship Specialty Start Date End Date Edwige Chang MD PCP - General Family Medicine 12/24/23
--- OUTSIDE RECORDS SUMMARY | 2024-08-21 02:00 | XMS_ITS | Patient Health Record ---
Author Organization [facility] Address [address], [place] [id number] Care Team Providers Care Electronics Maintenance Technician Name Role Phone Leroy Du Primary Care Provider Taye Bedolla Unavailable [phone] Yee Shipley Unavailable [phone] Allergies No Known Allergies Reason For Referral No Information Medications Medication SIG (Take, Route, Fr equency, Duration) Notes Start Date End Date Status ZyrTEC 10 mg 1 tab(s) orally once a day for 30 days 03/15/2021 Active Melatonin 5 mg 1 tab(s) orally once a day (at bedtime) for 30 days 11/14/2020 Active doxepin 10 mg 1 cap(s) orally once a day (at bedtime) for 30 days 11/14/2020 Active gabapentin 400 mg 1 tab(s) orally 2 ti mes a day for 30 days Active Robaxin 500 mg 1 tab orally at nigh t as needed to relax muscles for 30 days Active Gabapentin 400 mg 1 tab(s) orally 2 ti mes a day for 30 days Active Immunizations Vaccine Route Administration Date Status Comme nts Tdap IM Intramuscular 02/25/2020 Administered [facility] [id number] Moderna Covid-19 Vaccine Administration - First Dose (Single Dose 100MCG/0.5ML 1ST) IM Intramuscular 03/14/2020 Administered Vaccinated through [facility] intermediate by N Influenza Unknown 12/01/2010 Administered Moderna Covid-19 Vaccine Administration - Second Dose (Single Dose 100 MCG/0.5ML 2ND) Unknown 04/14/2020 Administered Social History Tobacco Use: Social History Observation Description Date Details (start date - stop date) Current Smoker NA - NA Tobacco Use Assessment MU Question Answer Notes What is your current smoking status? current smo ker How often do you smoke? every day How many cigarettes a day do you smoke? 6-10 How soon after you wake up do you smoke your fir st cigarette? 6-30 minutes Are you interested in quitting? not ready to carlos t Patient counseled on the paramjit gers of tobacco use and advised to quit: 02/19/2020 Problems Problem Type SNOMED Code ICD Code Onset Dates Problem Status W/U Status Risk Notes Problem Information temporarily unavailable Type 2 diabetes mellitus with hyperglycemia (E11.65) Active confirmed Problem Information temporarily unavailable Opioid dependence, uncomplicated (F11.20) Active confirmed Problem Information temporarily unavailable Cocaine abuse with intoxication, unspecified (F14.129) Active confirmed Problem Information temporarily unavailable Nicotine dependence, unspecified, uncomplicated (F17.200) Active confirmed Problem Information temporarily unavailable Schizoaffective disorder, depressive type (F25.1) Active confirmed Problem Information temporarily unavailable Anxiety disorder, unspecified (F41.9) Active confirmed Problem Information temporarily unavailable Acute stress reaction (F43.0) Active confirmed Problem Information temporarily unavailable Insomnia, unspecified (G47.00) Active confirmed Problem Information temporarily unavailable Mild intermittent asthma, uncomplicated (J45.20) Active confirmed Problem Information temporarily unavailable Gastro-esophageal reflux disease without esophagitis (K21.9) Active confirmed Problem Information temporarily unavailable Lumbago with sciatica, right side (M54.41) Active confirmed Problem Information temporarily unavailable Irregular menstruation, unspecified (N92.6) Active confirmed Problem Information temporarily unavailable Nausea (R11.0) Active confirmed Problem Information temporarily unavailable Body mass index [BMI] 34.0-34.9, adult (Z68.34) Active confirmed Problem Information temporarily unavailable Sheltered homelessness (Z59.01) Active confirmed Encounters Encounter Location Date Provider Diagnosis [facility] [address], [place] [id number] 01/07/2024 Taye Bedolla Assessments Encounter Date Diagnosis (ICD Code) Assessment Notes Treatment Notes Treatment Clinical Notes Section Notes 01/07/2024 Other 01/20/2024 Other Plan Of Treatment Pending Test Test Name Order Date HEPATITIS C AB W/REFL TO HCV RNA, QN, PC R 01/19/2020 C-REACTIVE PROTEIN 08/20/2020 CR Knee RT 4 or More Views 01/19/2020 SARS-CoV-2 RNA, QUAL RT-PCR 01/14/2020 Future Test Test Name Order Date MICROALBUMIN, RANDOM URINE (W/CREATININE ) 04/24/2020 HEMOGLOBIN A1c 04/24/2020 Insurance Providers Payer Name Payer Address Payer Phone Subscriber Number Group Number Insured Name Patient Relationship to Insured Coverage Start Date Coverage End Date [place] Medicaid C3 [address] [place], [place] [id number] Caesar Leah Self - patient is the insured 0 Medications Administered Medication Instructions Date of Administration Dosage Notes Ketorolac 01/17/2021 30 mg [facility] [id number] Medical (General) History Medical History History ICD Code hx PTSD asthma 06/2019 nausea, ?reflux or ulcer hx cocaine, MDMA, Ecstasy, marijuana, to bacco use L hip pain 01/25/2020 bned onset DM Type 2 Asthma Irregular menses Homelessness Z59.0 Surgical History Surgery Date(Month/Year) Tubal ligation 2007 BTL 01/19/2008 C section x 3, last 2007 Hospitalization History Reason Date(Month/Year) [facility]. cough, nasal congestion, acute p zara arias to home 04/10/2020 [facility] Hosp x 6 months-mental b reakdown-hosp x 3 2015
[2024-08-21 03:05] LABS: MANUAL DIFF FLAG NO
[2024-08-21 03:07] LABS: Hematocrit 32.4 % (37.0-47.0); Hemoglobin 10.9 g/dl (12.0-16.0); Imm Gran Abs Auto 0.03 X10*3/uL (0.00-0.03); Imm Gran Pct Auto 0.5 % (0.0-0.4); Lymphocytes Absolute Auto 2.0 X10*3/uL (1.2-4.9); Mean Corpuscular HGB Conc 33.6 g/dl (31.0-35.0); Mean Corpuscular Hemoglobin 25.2 pg (27.0-33.0); Mean Corpuscular Volume 75.0 fL (80.0-98.0); NRBC Abs Auto 0.000 X10*3/uL (0.0-0.012); NRBC Pct Auto 0.0 /100WBC (0.0-0.2); Platelet Count 261 X10*3/uL (160-400); Red Blood Count 4.32 X10*6/uL (4.20-5.50); White Blood Count 6.2 X10*3/uL (4.8-10.8)
[2024-08-21 03:32] LABS: Alanine Aminotransferase 36 U/L (0-31); Albumin Level 4.2 g/dL (3.5-5.0); Alkaline Phosphatase 62 U/L (39-117); Anion Gap 14 (12-20); Aspartate Amino Transferase 43 U/L (5-31); Blood Urea Nitrogen 20 mg/dL (9-16); Calcium 8.7 mg/dL (8.4-10.2); Carbon Dioxide 23 mmol/L (22-29); Chloride 104 mmol/L (96-108); Creatinine Clr Calc Pharmacy 96.8; Estimated Glomerular Filt Rate > 60; Magnesium 2.1 mg/dL (1.6-2.6); Potassium 2.9 mmol/L (3.3-5.1); Sodium 138 mmol/L (135-145); Total Protein 6.8 g/dL (6.5-8.0)
[2024-08-21 04:43] VITALS: BP 97/51; PULSE 98; RESP 20; TEMP 36.6; O2SAT 97
[2024-08-21] MEDS: Potassium Chloride ER 20 MEQ TAB.ER.PRT 40 MEQ PO (04:54)
[2024-08-21] MEDS: Potassium Chloride/H20 10 MEQ/100 ML PIGGYBACK 100 MEQ IV (05:01)
[2024-08-21 05:20] LABS: Cannabinoid Screen Urine Not Detected (Not Detect)
[2024-08-21 06:59] LABS: Potassium 3.2 mmol/L (3.3-5.1)
[2024-08-21 07:26] VITALS: BP 111/67; PULSE 92; RESP 15; TEMP 36.7; O2SAT 99
--- NOTE | 2024-08-21 09:51 | PC.NURSE ---
Pt sleeping in room; wakes to voice and to ambulate to BR; pt eating/drinking; denies SI/HI at this time; requesting detox; awaiting orders
[2024-08-21 10:31] VITALS: BP 105/59; PULSE 81; RESP 17; TEMP 36.9; O2SAT 96
[2024-08-21 11:26] VITALS: PULSE 85
[2024-08-21 12:44] VITALS: BP 111/62; PULSE 78; RESP 16; TEMP 36.9; O2SAT 98
== END 2024-08-21 12:46 | disposition other institution (70) ==
PROVIDERS: Emergency Provider Emergency Medicine Emergency Medical Services
DX: F19.10 Other psychoactive substance abuse, uncomplicated (principal); S90.822A Blister (nonthermal), left foot, initial encounter; S90.821A Blister (nonthermal), right foot, initial encounter; X50.3XXA Overexertion from repetitive movements, initial encounter; Y93.01 Activity, walking, marching and hiking; Y92.480 Sidewalk as the place of occurrence of the external cause; Y99.9 Unspecified external cause status; F41.9 Anxiety disorder, unspecified; F43.10 Post-traumatic stress disorder, unspecified; F25.0 Schizoaffective disorder, bipolar type; E11.9 Type 2 diabetes mellitus without complications; Z59.00 Homelessness unspecified; Z87.891 Personal history of nicotine dependence; Z79.899 Other long term (current) drug therapy
CPT/HCPCS: 36415; 80053; 80307; 83735; 84132; 84702; 85025; 93005; 99285; J3480; S9485

== ENCOUNTER → 2024-08-21 01:46 | Outpatient (BNV) | payer MEDICAID, SELFPAY | PROVIDERS: Emergency Provider Emergency Medicine Emergency Medical Services; Visit Provider Internal Medicine Cardiovascular Disease | DX: F14.90 Cocaine use, unspecified, uncomplicated (principal) | CPT/HCPCS: 93010 ==

== ENCOUNTER 2024-12-13 10:11 | Inpatient (IN) | payer OTHER, SELFPAY ==
--- OUTSIDE RECORDS SUMMARY | 2024-01-07 11:00 | XMS_ITS ---
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 Discharge from??; [...] Active Encounters Encounter Location Date Provider Diagnosis [facility] [address] [place], [place] [id number] 01/07/2024 Taye Bedolla Encounter for screening for [...] * Kushal MAYNARDaDOB:1985 ( 39 yo F)Acc No.[id number]:01/07/2024 Progress Notes Patient: Leah MÉNDEZ Provider: Talha Bedolla MD :1985 A ge:38 Y S ex:Female Date:01/07/2024 Address:homeless, [address] ([id number]) Mailing Address, [facility] Pcp:Leroy Du Subjective: * Chief Complaints: * 1 . Office: Transfer of care/discharge f/u. 2. Symptom screening by [facility] staff pre entrance to clinic. 3. 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 Discharge from??; Meds; LABS; Also 01/19 with [facility]??, VISIYT: OKQ; function; schizaffective; diabetes status; tobacco; SA. As of 4:30 had not arrived for 4:00. Has no phone. Note she also has appt with [facility] in [facility] in january. * ROS: N o [...] Electronic signature of Andchuyita Bedolla MD on 12/13/2024 at 01:02 PM EST Sign off status: Pending * Provider: Talha Bedolla MD Date: 03/08/2023 Generated for Natividad sheikh/Yonatan/Radha on: 02/13/2024 01:02 PM EST
--- OUTSIDE RECORDS SUMMARY | 2024-01-20 05:30 | XMS_ITS ---
Author Organization [facility] Address [address] [place] [phone] Care Team Providers Care Meat Packer Name Role Phone Leroy Du Primary Care Provider [phone] Yee Shipley Unavailable [phone] REASON FOR VISIT Office: Transfer of care/discharge f/u Encounters Encounter Location Date Provider Diagnosis [address] [address] 01/20/2024 Yee Shipley Encounter for screening for [...] * Bob MAYNARD:1985 ( 39 yo F)Acc No.[id number]:01/20/2024 Progress Notes Patient: Leah MÉNDEZ Provider: JULIANO Marshall :1985 A ge:38 Y S ex:Female Date:01/20/2024 Address:homeless, [address] ([id number]) Mailing Address, [facility] Pcp:Leroy Du Subjective: * Chief Complaints: * [...] * Electronic signature of Tunde Shipley on 12/13/2024 at 01:02 PM EST Sign off status: Pending * Provider: JULIANO Marshall Date: 03/22/2023 Generated for Natividad sheikh/Yonatan/Thomassmitting on: 02/13/2024 01:02 PM EST
--- OUTSIDE RECORDS SUMMARY | 2024-10-24 16:00 | XMS_ITS ---
Author Organization [facility] Address [address] [place] [address] Care Team Providers Care Progress Man Name Role Phone Leroy Du Primary Care [...] Active Encounters Encounter Location Date Provider Diagnosis [address] [address] 10/24/2024 Provider Migration Plan Of Treatment No Information Progress Notes * Kim MAYNARDB:1985 ( 39 yo F)Acc No.[id number]:10/24/2024 Patient: Bereket EBENLeah Provider: :1985 A ge:39 Y S ex:Female Date:10/24/2024 Address:homeless, [address] ([phone]) Mailing Address, [place] [facility] Pcp:ZZJessica ZZBossie Subjective: * Chief Complaints: * [...] Electronic signature of Prov ider Migration on 12/13/2024 at 01:01 PM EST Sign off status: Pending * Provider: Date: 10/24/2024 Generated for Natividad sheikh/Yonatan/Serenityitting on: 02/13/2024 01:01 PM EST
[2024-12-13] VITALS (11 sets, daily range): BP systolic 95–126; BP diastolic 54–72; PULSE 74–104; RESP 12–26; TEMP 36.7; O2SAT 97–100; BMI 26.7
--- NOTE | ~2024-12-13 | CT_ITS ---
CLINICAL HISTORY: ams CT head without contrast Comparison: CT/SR - CT HEAD WITHOUT IV CONTRAST - 09/08/23 17:51 EDT Findings: No intra-axial mass, midline shift, hydrocephalus, or acute hemorrhage. No significant atrophy-like change or white matter disease. The visualized paranasal sinuses and mastoid air cells are normal. The orbits are unremarkable. No skull fracture. IMPRESSION: 1. No acute intracranial findings. This document has been electronically signed by: Lucy Adams MD on 12/13/2024 13:08:53
--- NOTE | 2024-12-13 10:24 | ECG_ITS ---
Test Reason : AMS Blood Pressure : */* mmHG Vent. Rate : 87 BPM Atrial Rate : 87 BPM P-R Int : 134 ms QRS Dur : 74 ms QT Int : 404 ms P-R-T Axes : 53 63 61 degrees QTcB Int : 486 ms Normal sinus rhythm with sinus arrhythmia Nonspecific T wave abnormality Abnormal ECG When compared with ECG of 21-Aug-2024 01:45, Nonspecific T wave abnormality, worse in Inferior leads Nonspecific T wave abnormality now evident in Lateral leads Referred By: Emma Ahmadi Electronically Signed By: Yony Ramos
--- NOTE | 2024-12-13 10:58 | ED.PSYCH ---
HPI - Psych General Chief Complaint: Psychiatric Symptoms Stated Complaint: A/V HALLUCINATIONS PER EMS Time Seen by Provider: 12/13/24 10:23 History of Present Illness HPI Narrative: Patient is a 39-year-old female with a history of schizoaffective disorder history of polysubstance abuse was found on the street completely agitated yelling screaming praying to God. Sent in for further evaluation long history of bipolar as well. Patient unable to give details. Related Data Home Medications ?Medication ?Instructions ?Recorded ?Confirmed cetirizine 10 mg tablet 10 mg PO DAILY 12/14/24 12/14/24 clonidine HCl 0.1 mg tablet 0.1 mg PO BID PRN Anxiety 12/14/24 12/14/24 haloperidol 2 mg tablet 2 mg PO BEDTIME 12/14/24 12/14/24 hydroxyzine HCl 25 mg tablet 25 mg PO QID PRN Anxiety 12/14/24 12/14/24 olanzapine 5 mg tablet 5 mg PO Q4H PRN Agitation 12/14/24 12/14/24 quetiapine 50 mg tablet 50 mg PO BEDTIME 12/14/24 12/14/24 topiramate 100 mg tablet 100 mg PO BEDTIME 12/14/24 12/14/24 trazodone 50 mg tablet 50 mg PO BEDTIME 12/14/24 12/14/24 Allergies Allergy/AdvReac Type Severity Reaction Status Date / Time dog dander (DOG DANDER) Allergy Intermediate ITCHY EYES Verified 12/13/24 10:40 pollen extracts (POLLEN) Allergy Intermediate STUFFY, Verified 12/13/24 10:40 ITCHY EYES Pork/Porcine Containing Allergy Itching Verified 12/13/24 10:40 Products Review of Systems Review of Systems: Unable to obtain review of systems secondary to patient's agitation PMFSH Past Medical History Source: unable to obtain Medical History (Updated 12/14/24 @ 16:20 by Yanira Mullins NP) Cocaine use disorder Opioid use disorder Generalized abdominal discomfort Medical clearance for psychiatric admission PTSD (post-traumatic stress disorder) Prediabetes Oligomenorrhea Routine medical exam Anxiety Pseudoseizures Bipolar 1 disorder, manic, moderate Social History Social History Household Members: None Household Members Other:: says has spouse but unhoused Housing: Homeless Do you presently have visiting nurse or other home services: No Alcohol intake: former Patient Tobacco Use Status: Former Tobacco user Tobacco use type: Cigarette Cigarette Packs Per Day: 1 Cigarettes Per Day: 20.0 Years Smoked: Many' e-Cigarette/Vaping Use: Former Use Second Hand Smoke Exposure: No Substance Use Type: Crack/Cocaine and Heroin Currently Displaying Signs/Symptoms of Drug Intoxication Withdrawal: No Advance Directives: No Advance Directives Information Provided: Yes Do you have thoughts of harming others: None Do you have a plan to hurt others: No Plan Recently lost weight without trying: Unsure How much weight loss: Not applicable Eating poorly because of decreased appetite: No Nutrition screen score: 2 Nutrition Risks: No Nutritional Risk Patient : No : No Poor oral hygiene: No service: No Sexual orientation: Straight/Heterosexual Physical Exam Exam: Exam: Appearance: Agitated moving about. Eyes: Pupils equal, round and reactive to light. ENT: Pharynx normal. Neck: Normal inspection. Neck supple. No lymph nodes noted. No crepitus CVS: Normal heart rate and rhythm. Pulses normal. Normal S1 and S2 Respiratory: No respiratory distress. Breath sounds normal. No Wheezing. No rales Abdomen: Soft and nontender. No rigidity. No distention. good BS x4 Skin: Skin warm and dry. Normal skin color. Normal skin turgor. Extremities: No lower extremity edema. Neurovascular intact to all extremities. No Lacerations. No Rash Neuro: Oriented times 0 moving about. Unable to settle down unable to follow commands. Grossly cranial nerves intact. seeing the devil. Cranial nerves grossly intact Vital Signs: Vital Signs: Last Vital Signs Temp 98.5 F 12/14/24 20:00 Pulse 90 12/14/24 20:00 Resp 16 12/14/24 20:00 BP 109/66 12/14/24 20:00 Pulse Ox 95 12/14/24 20:00 O2 Del Method Room Air 12/14/24 20:00 BMI result Body Mass Index 26.7 Course Course Course Narrative: Vandana: This patient was signed out to me at change of shift today on 12/13/2024. The patient had presented at around 10:30 this morning. She was brought to the hospital by ambulance after bystanders had called 911 because the patient was behaving strangely in public. She apparently was yelling in the street that she was seeing devils. The patient has a history of mental health problems and previous psychiatric hospitalizations. She apparently arrived agitated and was given IM medications for sedation. Her medical workup included a negative head CT, a CBC that showed a white count of 5.2 with a slight lymphocytosis (46% lymphocytes) unremarkable metabolic panel and a negative test. She was initially mildly tachypneic but her vital signs normalized. After her sedation wore off she was seen by the care team who recommended inpatient hospitalization. The patient was then moved into our psychiatric area after having become significantly calmer. The patient will be placed in physician observation as of 18:45 today. Reevaluation(s) Reevaluation #1: Time: 06:14 Date: 12/14/24 Provider: Marysol Smith, DO Patient in physician observation for psychiatric evaluation.? No acute events reported overnight. No current complaints. VS stable.? Patient is in bed search status. Will continue to monitor. Reevaluation #2: December 14 2024 12:00 p.m. physician observation ended and the patient admitted inpatient PAULIE Medications Administered Generic Name Dose Route Start Last Admin Trade Name Freq PRN Reason Stop Dose Admin Haloperidol 2 mg 12/14/24 21:00 12/14/24 20:17 Haloperidol 1 Mg Tablet PO 2 mg BEDTIME ENRIKE Administration Quetiapine Fumarate 50 mg 12/14/24 21:00 12/14/24 20:17 Quetiapine Fumarate 50 Mg Tablet PO 50 mg BEDTIME ENRIKE Administration Topiramate 100 mg 12/14/24 21:00 12/14/24 20:17 Topiramate 100 Mg Tablet PO 100 mg BEDTIME ENRIKE Administration Discontinued Medications Generic Name Dose Route Start Last Admin Trade Name Freq PRN Reason Stop Dose Admin Diphenhydramine HCl 50 mg 12/13/24 10:23 12/13/24 10:30 Diphenhydramine Hcl 50 Mg/Ml Vial IM 12/13/24 10:24 50 mg ONCE ONE Administration Haloperidol Lactate 5 mg 12/13/24 10:23 12/13/24 10:30 Haloperidol Lactate 5 Mg/Ml Vial IM 12/13/24 10:24 5 mg ONCE ONE Administration Haloperidol Lactate 5 mg 12/13/24 13:29 12/13/24 13:35 Haloperidol Lactate 5 Mg/Ml Vial IM 12/13/24 13:30 5 mg ONCE ONE Administration Sodium Chloride 1,000 mls @ 999 mls/hr 12/13/24 10:30 12/13/24 14:12 Ns IV 12/13/24 11:30 Infused .Q1H1M ENRIKE Infusion Lorazepam 1 mg 12/14/24 03:33 12/14/24 12:41 Lorazepam 1 Mg Tablet PO 12/14/24 03:34 Not Given ONCE ONE Midazolam HCl 2 mg 12/13/24 10:23 12/13/24 10:30 Midazolam Hcl 2 Mg/2 Ml Vial IM 12/13/24 10:24 2 mg ONCE ONE Administration Medical Decision Making Medical Decision Making [facility] Narrative: Patient is 39 years old has a history of schizoaffective disorder history of polysubstance abuse. Patient found on the street yelling screaming. prying to God. History of bipolar. Patient extremely agitated. Unable to deescalate using verbal attempts. Patient require additional medication. Initially was given Haldol Benadryl, Versed with good results. She slept were able to get her a CT scan of the head labs were drawn. CT head was by my interpretation grossly negative for any acute evidence of bleeding. There is no acute fracture. I reviewed radiology's reading which was the same. I was stable to get an EKG which showed a sinus rhythm heart rate was 90 SC QRS QTC within normal limits there is diffuse T-wave flattening noted on the EKG. CPK is 379 no evidence for rhabdo. Patient's test is negative. No related issues. White count is normal. Hemoglobin is 11.7 which is approximately baseline. Patient is creatinine is normal. Currently pending U tox. Will also need a psychiatric evaluation for the acute agitation in the setting of having schizoaffective disorder. About 2 hours after the initial dose of Haldol patient's started again to yell and scream in the emergency department. Unable to redirect patient. She was given another dose of Haldol this time also with good results. Currently awaiting evaluation by crisis team. Awaiting tox screen. Awaiting UA. Differential Diagnosis Differential Diagnoses: The differential diagnosis associated with the presentation includes Schizophrenia schizoaffective disorder polysubstance abuse intracranial bleed electrolyte disturbance Admission/Observation Consideration of admission/observation: Escalation of care including admission/observation considered Consult Healthcare Provider Management of the patient was discussed with: Flat Grinder Operator (Care team) Lab Data MDM Lab Attestation statement: I reviewed the patient's lab results. 12/13/24 13:10 12/13/24 13:10 Labs: Lab Results 12/13/24 12/13/24 Range/Units 13:10 15:49 WBC 5.2 (4.8-10.8) X10*3/uL RBC 4.49 (4.20-5.50) X10*6/uL Hgb 11.7 L (12.0-16.0) g/dl Hct 35.0 L (37.0-47.0) % MCV 78.0 L (80.0-98.0) fL MCH 26.1 L (27.0-33.0) pg MCHC 33.4 (31.0-35.0) g/dl RDW 15.1 (11.0-16.0) % Plt Count 301 (160-400) X10*3/uL MPV 9.3 L (9.4-12.3) fL Immature Gran % (Auto) 0.2 (0.0-0.4) % Neut % (Auto) 42.1 L (45-73) % Lymph % (Auto) 46.1 H (20-40) % [place] % (Auto) 9.6 (2-11) % Eos % (Auto) 1.0 (0-4) % Baso % (Auto) 1.0 (0-2) % Lymph # (Auto) 2.4 (1.2-4.9) X10*3/uL [place] # (Auto) 0.5 (0.1-1.2) X10*3/uL Eos # (Auto) 0.1 (0.0-0.4) X10*3/uL Baso # (Auto) 0.1 (0.0-0.2) X10*3/uL Abs Immat Gran (auto) 0.01 (0.00-0.03) X10*3/uL Absolute Neuts (auto) 2.2 (2.0-8.3) x10*3/uL Absolute Nucleated RBC 0.000 (0.0-0.012) X10*3/uL Nucleated RBC % (auto) 0.0 (0.0-0.2) /100WBC Sodium 140 (135-145) mmol/L Potassium 3.6 (3.3-5.1) mmol/L Chloride 104 (96-108) mmol/L Carbon Dioxide 25 (22-29) mmol/L Anion Gap 15 (12-20) BUN 17 H (9-16) mg/dL Creatinine 0.61 (0.5-1.4) mg/dL Estim Creat Clear Calc 131.4 Estimated GFR > 60 Random Glucose 84 (60-115) mg/dL Calcium 9.4 D (8.4-10.2) mg/dL Total Bilirubin 0.6 (0.0-1.0) mg/dL Direct Bilirubin 0.2 (0.0-0.5) mg/dL AST 40 H (5-31) U/L ALT 21 (0-31) U/L Alkaline Phosphatase 67 (39-117) U/L Total Creatine Kinase 378 H (26-140) U/L Total Protein 7.4 (6.5-8.0) g/dL Albumin 4.5 (3.5-5.0) g/dL Lipase 20 (8-78) U/L Beta HCG, Quant < 2 mIU/mL Urine Color Yellow Urine Appearance Clear Urine pH 6.5 (5.0-9.0) Ur Specific [place] <= 1.005 (1.005-1.025) Urine Protein Negative (Neg-Trace) mg/dL Urine Glucose (UA) Negative (Negative) mg/dL Urine Ketones 15 (Negative) mg/dL Urine Blood Negative (Negative) Urine Nitrite Negative (Negative) Ur Leukocyte Esterase Negative (Negative) Urine RBC 0-2 (0-2) /HPF Urine WBC 0-5 (0-5) /HPF Ur Squamous Epith Cells 0-2 (0-2) /HPF Urine Bacteria None Seen (None Seen) Hyaline Casts 0-2 (0-2) /LPF Urine Opiates Screen Not Detected (Not Detect) Ur Buprenorphine Scrn Not Detected (Not Detect) ng/mL Ur Oxycodone Screen Not Detected (Not Detect) ng/mL Urine Methadone Screen Not Detected (Not Detect) ng/mL Urine Fentanyl Screen Not Detected (Not Detect) Ur Barbiturates Screen Not Detected (Not Detect) Ur Phencyclidine Scrn Not Detected (Not Detect) Ur Amphetamines Screen Not Detected (Not Detect) U Benzodiazepines Scrn POSITIVE H (Not Detect) Urine Cocaine Screen POSITIVE H (Not Detect) U Marijuana (THC) Screen Not Detected (Not Detect) Independent Interpretation I performed an independent interpretation of an: CT Scan (CTA head showed no evidence of bleeding) Radiology Impression Discussion of test interpretation with radiology: I have reviewed the radiologist's reading. Critical Care Time Critical Care Time Critical Care Time: Yes Total Critical Care Time: 40 Attestation: I have personally provided 40 minutes of critical care time exclusive of time spent on separately billable procedures. ?Time includes review of lab data, radiology results, discussion with consultants, and monitoring for potential decompensation. ?Interventions were performed as documented above Discharge Plan Discharge Clinical Impression: Schizoaffective disorder, bipolar type Patient Disposition: Admitted As Inpatient Interventions: Admission Worksheet (ED) Last Done: 12/14/24 12:41 Discharge Date/Time: 12/14/24 13:09
--- NOTE | 2024-12-13 10:59 | PC.NURSE ---
pt came in hallucinating, agitated and screaming, security at bedside, provider and multiple nurses, pt was changed over and was IM medicated. will attempt IV access, labs and obtain ekg when able.
--- NOTE | 2024-12-13 11:24 | MHC.EDTECH ---
EKG and labs delayed on pt as she is uncooperative.
--- OUTSIDE RECORDS SUMMARY | 2024-12-13 13:02 | XMS_ITS | Encounter Summary ---
Author Organization [employer] Address [address] [place] [address] 7[address] [place] [address] Care Team Providers Care Jet Ski Mechanic Name Role Phone AmaliaPreeti CARE WORKER Unavailable Unavailable Edwige Chang MD Primary Care Provider [phone] Juana Huggins Unavailable Unavailable Charli Saunders SERVICE SUPERVISOR Unavailable [phone] Keri South Unavailable Encounter Details Date Type Department Care Team (Late st Contact Info) Description 09/16/2023 Orders Only [facility] [address] [place] [address] Edwige Chang MD [address] [place] [address] Social History Tobacco Use Types Packs/Day Years [...] C-spine Computed Tomogra phy Edwige Chang MD [facility] CT PROCEDURES Final Result documented in this encounter Visit Diagnoses Not on filedocumented in this encounter Additional Health Concerns Assessment Noted Time PHQ-9 Depression Total Score: 16 05// 024 10:34 AM EDT documented as of this encounter Care Teams Jet Ski Mechanic Relationship Specialty Start Date End Date Edwige Chang MD [address] [place] [address] PCP - General Family Medicine 01/17/22 Preeti Holland FNP Family Medicine 12/08/21 Juana Huggins Health Navigator Case Management 02/06/22 Charli Saunders LCSW Copra Processor Behavioral Health 09/09/24 Keri South Copra Processor Behavioral Health 09/09/24 documented as of this encounter
--- OUTSIDE RECORDS SUMMARY | 2024-12-13 13:02 | XMS_ITS | Encounter Summary ---
Author Organization [facility] Address [address] [place] [address] [place], [place] [id number] Phone Care Team Providers Care Direct Sales Consultant Name Role Phone Edwige Chang MD Primary Care Provider [phone] Pcp, Unknown Primary Care Provider Unavailabl e Edwige Chang MD Primary Care Provider [phone] Edwige Chang MD Unavailable [phone] Edwige Chang MD Primary Care Provider Encounter Details Date Type Department Care Team (Latest Contact Info) Description 01/30/2021 Transcribe Orders [address] [place] [address] Lori Goldberg, BINDING DYER [address] [place] [address] [email or web address] Opioid dependence with opioid-induced disorder (Primary Dx) Social History Tobacco Use Types Packs/Day Years Used Date Smoking Tobacco: Some Days Smokeless Tobacco: Never Alcohol Use Standard Drinks/Week Comments Yes 0 (1 standard drink = 0.6 oz pur e alcohol) Comments No Sex and Gender Information Value Date Recorded Sex Assigned at Female 03/01/2021 2:39 PM EST Legal Sex Female 3:54 AM EST Gender Identity Female 03/01/2021 2:39 PM EST Sexual Orientation Straight 03/01/2021 2: 39 PM EST documented as of this encounter Plan of Treatment Not on file documented as of this encounter Results * Hepatitis B core antibody, IgM (01/30/2021 12:18 PM EST) HEP B CORE IGM AB Negative Negative [facility] Comment:IgM anti-HBc not det ected. Does not exclude the possibility of exposure to or infection with HBV. Blood 01/30/2021 12:1 8 PM EST 01/30/2021 12:28 PM EST us Lori Goldberg BINDING DYER LAB BLOOD BKR ORDERABLE S Final Result [facility] [address] [place] [address] * Hepatitis C genotyping (01/30/2021 12:18 PM EST) Pathologist [facility] HCV GENOTYPE Test Not Performed. [facility] Comment: (NOTE) HCV Genotype, S was cancelled on 02/02/2021 at 10:17; Based on other test results additional testing not required. Genotyping not performed due to inability to generate sufficient target sequence for genotype analysis. Blood (Blood) 01/30/2021 12: 18 PM EST 01/30/2021 12:28 PM EST us Lori Goldberg BINDING DYER NON CULTURE MICROBIOLOG Y Final Result Performing Organization Address City/[facility]/ZIP Co de Phone Number [facility] [address] [place] [address] * Hepatitis B surface antigen (01/30/2021 12:18 PM EST) Pathologist [facility] HBV SURFACE ANTIGEN NON-REACTI VE NON-REACTI VE [facility] Blood 01/30/2021 12:1 8 PM EST 01/30/2021 12:28 PM EST us Lori Goldberg BINDING DYER LAB BLOOD BKR ORDERABLE S Final Result Performing Organization Address City/[facility]/ZIP Co de Phone Number [facility] [address] [place] [address] * (ABNORMAL) Comprehensive metabolic panel (01/30/2021 12:18 PM EST) SODIUM 136 133 - 146 mmol/L [facility] POTASSIUM 4.7 3.3 - 5.1 mmol/L [facility] CHLORIDE 101 96 - 108 mmol/L [facility] CO2 22 21 - 35 mmol/L [facility] BUN 17 6 - 19 mg/dL [facility] CREATININE 0.80 0.5 - 1.5 mg/dL [facility] GLUCOSE 120(H) 70 - 99 mg/dL [facility] ALBUMIN 4.7 3.9 - 4.8 g/dL [facility] TOTAL PROTEIN 7.8 6.5 - 8.0 g/dL [facility] CALCIUM 10.1 8.4 - 10.3 mg/dL [facility] ALKALINE PHOSPHATASE 94 39 - 117 U/L [facility] TOTAL BILIRUBIN 0.3 0.0 - 1.2 mg/dL [facility] AST 37 0 - 37 U/L [facility] ALT 32 0 - 40 U/L [facility] GLOBULIN 3.1 1 - 4.8 g/dL [facility] EGFR 98 >59 mL/min/1.7 3m2 [facility] Comment:Estimated glomerular filtration rate calculated using the CKD-EPI refit equation. ANION GAP 18 10 - 20 mmol/L [facility] Blood 01/30/2021 12:1 8 PM EST 01/30/2021 12:28 PM EST us Lori Goldberg BINDING DYER LAB BLOOD BKR ORDERABLE S Final Result Performing Organization Address City/State/[facility] Co de Phone Number [facility] [address] [place] [address] * Hepatitis B surface antibody (01/30/2021 12:18 PM EST) HBV SURFACE ANTIBODY Positive [facility] Comment: Unvaccinated: Negative Vaccinated: Positive Blood 01/30/2021 12:1 8 PM EST 01/30/2021 12:28 PM EST Lori Goldberg BINDING DYER LAB BLOOD BKR ORDERABLE S Final Result Performing Organization Address City/[facility]/ZIP Co de Phone Number [address] [address] * (ABNORMAL) HEPATITIS A ANTIBODY, TOTAL (01/30/2021 12:18 PM EST) [facility] HAV TOTAL AB Reactive(A ) NON-REACTI [facility] Blood 01/30/2021 12:1 8 PM EST 01/30/2021 12:28 PM EST Lori Goldberg BINDING DYER LAB BLOOD BKR ORDERABLE S Final Result Performing Organization Address [facility] Co de Phone Number [address] [address] * Hepatitis C viral load (PCR) (01/30/2021 12:18 PM EST) [facility] HCV RNA DETECT/QNT Undetected Undetected IU/mL [facility] Comment: (NOTE) Result in log IU/mL is Undetected. ADDITIONAL INFORMATION The quantification range of this assay is 15 to 100,000,000 IU/mL (1.18 log to 8.00 log IU/mL). Testing was performed using the wong HCV test ([employer] with the wong [id number] System. Blood (Blood) 01/30/2021 12: 18 PM EST 01/30/2021 12:28 PM EST Lori Goldberg BINDING DYER LAB BLOOD BKR ORDERABLE S Final Result Performing Organization Address [facility] Co de Phone Number [facility] MED/PATH [facility] [address] [place] [address] * Hepatitis C antibody, qualitative (01/30/2021 12:18 PM EST) [facility] HCV NON-REACTIV E NON-REACTI [facility] Blood 01/30/2021 12:1 8 PM EST 01/30/2021 12:28 PM EST us Lori Goldberg BINDING DYER LAB BLOOD BKR ORDERABLE S Final Result Performing Organization Address [facility]/ZIP Co de Phone Number [address] [address] * Hepatitis B core antibody, total (01/30/2021 12:18 PM EST) HEP B CORE AB, TOT NON-REACTI VE NON-REACTI VE [facility] Blood 01/30/2021 12:1 8 PM EST 01/30/2021 12:28 PM EST us Lori Goldberg BINDING DYER LAB BLOOD BKR ORDERABLE S Final Result Performing Organization Address [facility]/ZIP Co de Phone Number [address] [address] * HIV-1/2 antigen/antibody (01/30/2021 12:18 PM EST) HIV-1/2 Antigen/Antibo dy NON-REACTI VE NON-REACTI VE [facility] Blood 01/30/2021 12:1 8 PM EST 01/30/2021 12:28 PM EST us Lori Goldberg BINDING DYER LAB BLOOD BKR ORDERABLE S Final Result Performing Organization Address [facility]/ZIP Co de Phone Number [address] [address] * (ABNORMAL) GGT (Gamma glutamyl transferase) (01/30/2021 12:18 PM EST) GGT 48(H) 7 - 33 U/L [facility] Blood 01/30/2021 12:1 8 PM EST 01/30/2021 12:28 PM EST us Lori Goldberg BINDING DYER LAB BLOOD BKR ORDERABLE S Final Result [facility] [address] [place] [address] * (ABNORMAL) CBC and differential (01/30/2021 12:18 PM EST) WBC 6.41 4.00 - 11.00 K/uL [facility] RBC 5.03 3.72 - 5.30 M/uL [facility] HGB 14.6 10.6 - 15.5 g/dL [facility] HCT 42.9 32.0 - 45.0 % [facility] PLT 324 140 - 430 K/uL [facility] MCV 85.3 78.0 - 97.0 fL [facility] MCH 29.0 25.0 - 33.0 pg [facility] MCHC 34.0 32.0 - 36.0 g/dL [facility] RDW 12.9 11.0 - 16.0 % [facility] MPV 10.5 8.4 - 12.8 fl [facility] NRBC 0.00 0 /100 WBCs [facility] ABSOLUTE NRBC 0.00 0 K/uL [facility] DIFF METHOD Auto [facility] NEUTS 54.2 43.0 - 75.0 % [facility] LYMPHS 34.5 18.2 - 47.4 % [facility] MONOS 5.5 4.00 - 11.00 % [facility] EOS 3.6 0.0 - 8.0 % [facility] BASOS 1.7 0.0 - 2.0 % [facility] Granulocytes, immature (%) 0.5 0.0 - 0.9 % [facility] ABSOLUTE NEUTS 3.48 1.80 - 7.70 K/uL [facility] ABSOLUTE LYMPHS 2.21 1.00 - 3.10 K/uL [facility] ABSOLUTE MONOS 0.35 0.20 - 0.80 K/uL [facility] ABSOLUTE EOS 0.23 0.00 - 0.80 K/uL [facility] ABSOLUTE BASOS 0.11(H) 0.00 - 0.09 K/uL [facility] Granulocytes, immature 0.03 0.00 - 0.05 K/uL [facility] Blood 01/30/2021 12:1 8 PM EST 01/30/2021 12:28 PM EST us Lori Goldberg BINDING DYER LAB BLOOD BKR ORDERABLE S Final Result Performing Organization Address City/State/[facility] Co de Phone Number [facility] [address] [place] [address] documented in this encounter Visit Diagnoses Diagnosis Opioid dependence with opioid-induced disorder- Primary documented in this encounter Additional Health Concerns Infection Onset Date Last Indicated Resolved Time CoV-Risk 03/31/2024 03/31/2024 04/11/2024 1:24 AM EST documented as of this encounter Care Teams Direct Sales Consultant Relationship Specialty Start Date End Date Edwige Chang MD [address] [place] [address] [email or web address] PCP - General Family Medicine 08/20/20 02/05/21 Pcp, Unknown PCP - General 02/06/21 02/06/21 Edwige Chang MD [address] [place] [address] [email or web address] PCP - General Family Medicine 02/07/21 09/16/23 Edwige Chang MD [address] [place] [address] PCP - General Family Medicine 09/17/23 Edwige Chang MD [address] [place] [address] [email or web address] Family Medicine 02/06/21 documented as of this encounter Additional Source Comments The information contained in this document represents components of the legal health record. It is not the complete legal health record.[facility]
--- OUTSIDE RECORDS SUMMARY | 2024-12-13 13:02 | XMS_ITS | Clinical Summary ---
Author Organization [facility] Address [address] [place] [phone] Phone Care Team Providers Care Registered Nursing Professor Name Role Phone Edwige Chang MD Primary Care Provider [phone] Allergies No known active allergies Medications fluticasone [...] Sign Reading Time Taken Comments Blood Pressure 134/89 08/30/2024 12:03 AM EDT Pulse 85 08/30/2024 12:03 AM EDT Temperature 36.7 C (98.1 F) 08/30/2024 12:03 AM EDT Respiratory Rate 18 08/30/2024 12:03 AM EDT Oxygen Saturation 98% 08/30/2024 12:03 AM EDT Inhaled Oxygen Concentration - - Weight 98 kg (216 lb) 08/30/2024 12:03 AM EDT Height 167.6 cm (5' 6 ) 08/30/2024 12:03 AM EDT Body Mass Index 34.86 08/30/2024 12:03 AM EDT Plan of Treatment Health Maintenance [...] 07/02/2003 Cervical Cancer Screening: Pap Smear 2005 HPV Vaccines (1 - 3-dose SCDM series) 07/02/2011 Social Influencers of Health Screening 01/14/2022 Diabetes: Annual Urine Albumin-Creatinine Ratio (uACR) 12/24/2023 Depression Screening 02/12/2024 COVID-19 Vaccine ( season) 2024 05/09/2022, 04/14/2020, 03/14/2020 Influenza Vaccine (#1) 2024 , 12/14/2023, 12/01/2010 Diabetes: Blood Sugar Control Test (HGBA1C) 01/21/2025 07/22/2024 Diabetes: Annual GFR (Glomerular Filtration Rate) 08/08/2025 08/08/2024, 08/07/2024, 07/29/2024, Additional history exists Cholesterol Screening (Lipid Panel) 03/31/2029 03/31/2024, 07/19/2021 DTaP,Tdap,and Td Vaccines (2 - Td or Tdap) 02/24/2030 02/25/2020 RSV Immunization Adult Patients (1 - 1-dose 75+ series) 07/02/2059 HIV Screening Completed 10/31/2021 Hepatitis C Screening Completed 02/28/2024, 021 HIB Vaccines Aged Out No longer eligi [...] LAB CHEMISTRY METHOD 12/24/2023 2:15 PM EST [facility] Potassium 3.9 3.5 - 5.5 mmol/L LAB CHEMISTRY METHOD 12/24/2023 2:15 PM EST [facility] Chloride 105 96 - 110 mmol/L LAB CHEMISTRY METHOD 12/24/2023 2:15 PM EST [facility] CO2 24 21 - 32 mmol/L LAB CHEMISTRY METHOD 12/24/2023 2:15 PM [facility] Anion Gap 9 3 - 11 LAB CHEMISTRY METHOD 12/24/2023 2:15 PM [facility] Glucose 111(H) 70 - 100 mg/dL LAB CHEMISTRY METHOD 12/24/2023 2:15 PM [facility] BUN 13 5 - 25 mg/dL LAB CHEMISTRY METHOD 12/24/2023 2:15 PM [facility] Creatinine 0.81 0.50 - 1.10 mg/dL LAB CHEMISTRY METHOD 12/24/2023 2:15 PM [facility] eGFR 95 >=60 mL/min/1. 73m2 LAB CHEMISTRY METHOD 12/24/2023 2:15 PM [facility] Comment:Calculation based on the Chronic Kidney Disease Epidemiology Collaboration (CKD-EPI) equation refit without adjustment for race. BUN/Creatinine Ratio 16.0 LAB CHEMISTRY METHOD 12/24/2023 2:15 PM [facility] Calcium 10.1 8.5 - 10.5 mg/dL LAB CHEMISTRY METHOD 12/24/2023 2:15 PM [facility] AST (SGOT) 20 10 - 42 unit/L LAB CHEMISTRY METHOD 12/24/2023 2:15 PM [facility] ALT (SGPT) 25 10 - 60 unit/L LAB CHEMISTRY METHOD 12/24/2023 2:15 PM [facility] Alkaline Phosphatase 79 42 - 121 unit/L LAB CHEMISTRY METHOD 12/24/2023 2:15 PM [facility] Total Protein 7.8 6.0 - 8.0 g/dL LAB CHEMISTRY METHOD 12/24/2023 2:15 PM [facility] Albumin 4.2 3.2 - 5.0 g/dL LAB CHEMISTRY METHOD 12/24/2023 2:15 PM EST [facility] Total Bilirubin 0.4 0.0 - 1.4 mg/dL LAB CHEMISTRY METHOD 12/24/2023 2:15 PM EST [facility] Blood Venous blood specimen / Unknown Venipuncture / Unknown 12/24/2023 1:21 PM EST 12/24/2023 1:43 PM EST us Francis Cheung DO LAB BLOOD ORDERABLES Final Result [facility] [address] [place] [address], from Last 3 Months or Most Recently Relevant to Health Maintenance Insurance MEDICAID - [place] Care Teams Registered Nursing Professor Relationship Specialty Start Date End Date Edwige Chang MD [address] [place] [id number] PCP - General Family Medicine 12/24/23
--- OUTSIDE RECORDS SUMMARY | 2024-12-13 13:02 | XMS_ITS | Encounter Summary ---
Author Organization [employer] Address [address] [place] [address] [address]t [place] [address] Care Team Providers Care Bank And Savings Securities Trader Name Role Phone AmaliaPreeti TRANSPORTATION ECONOMICS TEACHER Unavailable Unavailable Edwige Chang MD Primary Care Provider [phone] Juana Huggins Unavailable Unavailable Charli Saunders FURNACE CARETAKER Unavailable [phone] Keri South Unavailable Reason for Visit * Reason Onset Date Comments medication 12/22/2022 Encounter Details Date Type Department Care Team (Late st Contact Info) Description 12/22/2022 Telephone [place] [address] [place] [address] Edwige Chang MD [address] [place] [address] medication Social History Tobacco Use Types Packs/Day [...] - 12/22/2022 9:57 AM EST 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 Please advise. documented in this encounter Plan of Treatment Not on file documented as of this encounter Visit Diagnoses Not on filedocumented in this encounter Care Teams Bank And Savings Securities Trader Relationship Specialty Start Date End Date Edwige Chang MD [address] [place] [address] PCP - General Family Medicine 01/17/22 Preeti Holland FNP Family Medicine 12/08/21 Juana Huggins Health Navigator Case Management 02/06/22 Charli Saunders LCSW Semiconductor Processing Technician Behavioral Health 09/09/24 Keri South Semiconductor Processing Technician Behavioral Health 09/09/24 documented as of this encounter
--- OUTSIDE RECORDS SUMMARY | 2024-12-13 13:02 | XMS_ITS | Encounter Summary ---
Author Organization [employer] Address [address] [place] [address] 7 [place] [address] Care Team Providers Care Health Center Manager Name Role Phone Preeti Holland Primary Care Provider Unavailab Preeti Alvarado Unavailable Unavailable Edwige Chang MD Primary Care Provider [phone] Juana Huggins Unavailable Unavailable Charli SaundersW Unavailable [phone] Keri South Unavailable Encounter Details Date Type [...] on filedocumented in this encounter Care Teams Health Center Manager Relationship Specialty Start Date End Date Preeti Holland FNP PCP - General Family Medicine 12/08/21 01/16/22 Edwige Chang MD [address] [place] [address] PCP - General Family Medicine 01/17/22 Preeti Holland FNP Family Medicine 12/08/21 Bhavna, Juana Health Navigator Case Management 02/06/22 Charli Saunders LCSW Account Manager B2B Behavioral Health 09/09/24 Keri South Account Manager B2B Behavioral Health 09/09/24 documented as of this encounter
--- OUTSIDE RECORDS SUMMARY | 2024-12-13 13:02 | XMS_ITS | Encounter Summary ---
Author Organization [employer] Address [address] [facility] 7t [place] [address] Care Team Providers Care Integration Technician Name Role Phone Amalia Preeti ACCOUNT DIRECTOR Unavailable Unavailable Edwige Chang MD Primary Care Provider [phone] Juana Huggins Unavailable Unavailable Charli Saunders CHIP BIN OPERATOR Unavailable [phone] Keri South Unavailable Encounter Details Date Type Department Care Team (Late st Contact Info) Description 09/05/2023 Telephone [facility] [address] [place] [address] Eladia Muhammad, ELVI Social History Tobacco Use Types Packs/Day Years [...] PM EDT Received a call from Ginny hyman [facility] pt has an upcoming appt. There was a question about the pt's last name. Last name was Arti, dahlia pinedo and now constantin? Call was disconnected, don't have a call back number. documented in this encounter Plan of Treatment Not on file documented as of this encounter Visit Diagnoses Not on filedocumented in this encounter Additional Health Concerns Assessment Noted Time PHQ-9 Depression Total Score: 16 024 10:34 AM EDT documented as of this encounter Care Teams Integration Technician Relationship Specialty Start Date End Date Edwige Chang MD [address] [place] [address] PCP - General Family Medicine 01/17/22 Preeti Holland FNP Family Medicine 12/08/21 Juana Huggins Health Navigator Case Management 02/06/22 Charli Saunders LCSW Brand Protection Manager Behavioral Health 09/09/24 Keri South Brand Protection Manager Behavioral Health 09/09/24 documented as of this encounter
--- OUTSIDE RECORDS SUMMARY | 2024-12-13 13:02 | XMS_ITS ---
Author Organization [employer] Address [address] [place] [address] 7 [place] [address] Care Team Providers Care Technical Specialist Cytogenetics Name Role Phone Preeti Holland AIRCRAFT SALES REPRESENTATIVE Unavailable Unavailable Edwige Chang MD Primary Care Provider [phone] Juana Huggins Unavailable Unavailable Charil Saunders LCSW Unavailable [phone] Keri South Unavailable C3 CM TOC Status:Enrolled (Active) Start date:09/09/2024 Enrollment date:10/27/2024 Case Team Name Relationship Phone Charli Saunders PARKING CASHIER(Responsible Staff) Social Work er [phone] Continued Care and Services Coordination
--- OUTSIDE RECORDS SUMMARY | 2024-12-13 13:02 | XMS_ITS | Patient Health Record ---
Author Organization [facility] Address [address] [place] [address] Care Team Providers Care Trailer Park Manager Name Role Phone Leroy Du Primary Care Provider Taye Bedolla Unavailable [phone] Yee Shipley Unavailable [phone] Migration, Provider Unavailable Unavailable Allergies No Known Allergies Reason For Referral No Information Medications Medication SIG (Take, Route, Frequency, Duration) [...] times a day for 30 days Active Immunizations Vaccine Route Administration Date Status Comme nts Tdap IM Intramuscular 02/25/2020 Administered [facility] [id number] Moderna Covid-19 Vaccine Administration - First Dose (Single Dose 100MCG/0.5ML 1ST) IM Intramuscular 03/14/2020 Administered Vaccinated through [facility]dc by N Influenza Unknown 12/01/2010 Administered Moderna [...] Problem Status W/U Status Risk Notes Problem Hyperglycemia due to type 2 diabetes mellitus (059523712273940) Type 2 diabetes mellitus with hyperglycemia (E11.65) Active confirmed Problem Opioid dependence (46677906) Opioid dependence, uncomplicated (F11.20) Active confirmed Problem Cocaine abuse wi th intoxication, unspecified (F14.129) Active confirmed Problem Tobacco user (658055308) Nicotine dependence, unspecified, uncomplicated (F17.200) Active confirmed Problem Schizoaffective disorder, depressive type (25830513) Schizoaffective disorder, depressive type (F25.1) Active confirmed Problem Anxiety disorder (333514439) Anxiety disorder, unspecified (F41.9) Active confirmed Problem Acute stress reaction (79647407) Acute stress reaction (F43.0) Active confirmed Problem Insomnia (363018496) Insomnia, unspecified (G47.00) Active confirmed Problem Mild intermittent asthma (192035684) Mild intermittent asthma, uncomplicated (J45.20) Active confirmed Problem Gastro-esophageal reflux disease without esophagitis (905946951) Gastro-esophageal reflux disease without esophagitis (K21.9) Active confirmed Problem Sciatica (49515641) Lumbago with sciatica, right side (M54.41) Active confirmed Problem Irregular menstruation (01730783) Irregular menstruation, unspecified (N92.6) Active confirmed Problem Nausea (286233612) Nausea (R11.0) Active confir med Problem Body mass index 30.00 to 34.99 (835296680089741) Body mass index [BMI] 34.0-34.9, adult (Z68.34) Active confirmed Problem Sheltered homelessness (795904692208678) Sheltered homelessness (Z59.01) Active confirmed Encounters Encounter Location Date Provider Diagnosis [facility] [address] [place] [address] 10/24/2024 Provider Migration [address] [place] [address] 01/07/2024 Taye Bedolla Assessments Encounter Date Diagnosis [...] Insured Coverage Start Date Coverage End Date [place] Medicaid C3 [address] [place], [place] [id number] Leah Maynard Self - patient is the insured 0 Medications Administered Medication Instructions Date of Administration Dosage Notes Ketorolac 01/17/2021 30 mg [facility] [id number] Medical (General) History Medical History History ICD Code hx PTSD asthma 06/2019 nausea, ?reflux or ulcer hx cocaine, MDMA, Ecstasy, marijuana, to bacco use L hip pain 01/25/2020 bned onset DM Type 2 Asthma Irregular menses Homelessness Z59.0 Surgical History Surgery Date(Month/Year) Tubal ligation 2007 BTL 01/19/2008 C section x 3, last 2007 Hospitalization History Reason Date(Month/Year) [facility] ER. cough, nasal congestion, acute p haryngitis, dc to home 04/10/2020 [facility] Hosp x 6 months-mental b reakdown-hosp x 3 2015
--- OUTSIDE RECORDS SUMMARY | 2024-12-13 13:02 | XMS_ITS | Clinical Summary ---
Author Organization [facility] Address [address] [place] [address] Phone Care Team Providers Care Manager Office Services Name Role Phone Edwige Chang MD Unavailable [phone] Edwige Chang MD Primary Care Provider [phone] Allergies Active Allergy Reactions Criticality Noted Date Comments Bee Pollen 06/28/2023 hives Dog Dander 06/28/2023 Medications * This document contains information received from the source organization and may not represent a complete record from that organization. ibuprofen (ADVIL,MOTRIN) 600 MG tablet Take 1 tablet (600 mg total) by mouth every 6 (six) hours as needed for pain (specific location in comments). 15 tablet 5 Active haloperidoL (HALDOL) 2 MG tabletIndicati ons:schizophre anabel Take 3 tablets (6 mg total) by mouth nightly at bedtime. Indications: schizophrenia 45 tablet 5 Active benzocaine (ORAJEL) 10 % mucosal gel Use as directed in the mouth or throat 3 (three) times a day as needed for pain (specific location in comments). 5.3 g 5 Active amoxicillin (AMOXIL) 500 MG capsule Take 1 capsule (500 mg total) by mouth 3 (three) times a day. 2 capsule 5 Active LORazepam (ATIVAN) 1 MG tablet Take 1 tablet (1 mg total) by mouth daily as needed for anxiety. 5 tablet 5 Active nicotine polacrilex (NICORETTE) [address] 1 each (2 mg total) inside cheek every 2 (two) hours as needed for smoking cessation. 100 each 5 Active QUEtiapine (SEROQUEL) 300 MG tablet Take 1 tablet (300 mg total) by mouth nightly at bedtime. 15 tablet 5 Active sertraline (ZOLOFT) 25 MG tablet Take 1 tablet (25 mg total) by mouth daily. 15 tablet 5 Active topiramate (TOPAMAX) 50 MG tablet Take 1 tablet (50 mg total) by mouth 2 (two) times a day. 30 tablet 5 Active traZODone (DESYREL) 50 MG tablet Take 1 tablet (50 mg total) by mouth nightly at bedtime as needed (trouble sleeping). 15 tablet 5 Active Active Problems Problem Noted Date Diagnosed Date Abdominal pain 10/22/2024 Cocaine use disorder 04/01/2024 Opioid use disorder 04/01/2024 Bipolar I disorder 03/30/2024 Bipolar 1 disorder 02/23/2024 Bipolar 1 disorder, depressed, severe 02/21/2024 Hallucinations 02/20/2024 Bipolar I disorder with depression, severe 08/29 Resolved Problems Problem Noted Date Diagnosed Date Resolved Date Suicidal ideation 09/17/2023 04/06/2024 Encounters Date Type Department Care Team Description 10/21/2024 5:21 PM EDT - 10/22/2024 9:17 PM EDT Hospital Encounter [facility] Emergency Department [facility] [place] [address] Liu Cutler MD, MPH Breanna Hogan MD Hallisey, Stephen D, MD Discharge Disposition: Psychiatric Hospital from Last 3 Months Immunizations Immunization Administration Dates Next Due INFLUENZA, SPLIT VIRUS, TRIVALENT PF 03/03/2024 Social History Tobacco Use Types Packs/Day Years Used Date Smoking Tobacco: Unknown Cigarettes 2 15 Passive Smoke Exposure: Past Smokeless Tobacco: Never Tobacco Cessation:Counseling Given: No Alcohol Use Standard Drinks/Week Comments Not Currently 0 (1 standard drink = 0.6 oz pur e alcohol) Education Answer Date Recorded Are you interested in more education? Not on denzel e 06/08/2022 Are you concerned about learning? Not on file 06/08/2022 No 06/08/2022 No 06/08/2022 Digital Access Answer Date Recorded No 07/04/2022 No 07/04/2022 Reliable internet access at home? Not on file 07/04/2022 Device with a working camera? Not on file Intimate Partner Violence Answer Date R ecorded Are you denied basic needs s uch as food, clothing, or medical care? Patient unable to respond 10/21/2024 In the past 12 months have y ou been in a relationship with a person who hurts, threatens, or tries to control you? Patient unable to respond 10/21/2024 Are you denied basic needs s uch as food, clothing, or medical care? Patient unable to respond 10/21/2024 In the past 12 months have y ou been in a relationship with a person who hurts, threatens, or tries to control you? Patient unable to respond 10/21/2024 Comments No Sex and Gender Information Value Date Recorded Sex Assigned at Female 03/01/2021 2:39 PM EST Legal Sex Female 3:54 AM EST Gender Identity Female 03/01/2021 2:39 PM EST Sexual Orientation Straight 03/01/2021 2: 39 PM EST Last Filed Vital Signs Vital Sign Reading Time Taken Comments Blood Pressure 109/73 10/22/2024 8:44 PM EDT Pulse 80 10/22/2024 7:54 PM EDT Temperature 37.2 C (99 F) 10/22/2024 7:54 PM EDT Respiratory Rate 20 10/22/2024 7:54 PM EDT Oxygen Saturation 98% 10/22/2024 7:54 PM EDT Inhaled Oxygen Concentration - - Weight 98 kg (216 lb) 10/21/2024 5:22 PM EDT Height 167.6 cm (5' 6 ) 10/21/2024 5:22 PM EDT Body Mass Index 34.86 10/21/2024 5:22 PM EDT Plan of Treatment Health Maintenance Due Date Last Done Comments DEPRESSION SCREENING 1996 SMOKING Hx and SMOKELESS TOBACCO SCREENING 1997 PAP SMEAR 2005 MAMMOGRAM 2024 INFLUENZA VACCINE (#1) 2024 03/03/2024 COVID-19 VACCINE ( season) 2024 SCREENING FOR DIABETES 10/23/2027 , 09/02/2024, 02/22/2024 Adult Td,Tdap Booster 02/24/2030 02/25/2020 HEPATITIS C SCREENING Completed 02/28/2024 , 01/30/2021, 01/30/2021, Additional history exists HIV ONE-TIME SCREENING (18-65 YEARS) Completed 02/28/2024 HIB VACCINES Aged Out No longer eligi ble based on patient's age to complete this topic MENINGOCOCCAL VACCINES (ACWY) Aged Out No longer eligible based on patient's age to complete this topic MENINGOCOCCAL VACCINES (B) Aged Out N o longer eligible based on patient's age to complete this topic PNEUMOCOCCAL VACCINES (0-49 years) Aged Out No longer eligible based on patient's age to complete this topic Medical Devices Not on file Procedures Procedure Name Priority Date/Time Associated Diagnosis Comments POCT GLUCOSE Routine 10/22/2024 6:43 PM EDT LAB ADD ON Routine 10/22/2024 10:00 AM EDT ECG 12-LEAD STAT 10/22/2024 9:56 AM EDT US PELVIS TRANSABDOMINAL PLUS TRANSVAGINAL WITH DOPPLER Routine 10/22/2024 9:23 AM EDT LACTIC ACID (LACTATE) STAT 10/21/2024 7:45 PM EDT CREATINE KINASE (CK) Routine 10/21/2024 6:46 PM EDT HUMAN CHORIONIC GONADOTROPIN (HCG), QUANTITATIVE, BLOOD STAT 10/21/2024 6:46 PM EDT LIPASE STAT 10/21/2024 6:46 PM EDT MAGNESIUM STAT 10/21/2024 6:46 PM EDT LFTS (HEPATIC PANEL) STAT 10/21/2024 6:46 PM EDT BASIC METABOLIC PANEL (BMP) STAT 10/21/2024 6:46 PM EDT HC BLOOD COUNT COMPLETE AUTO&AUTO DIFRNTL WBC STAT 10/21/2024 6:46 PM EDT HC IADNA HEPATITIS C QUANT & REVERSE SALON ASSISTANT Routine 02/28/2024 9:40 AM EST from Last 3 Months or Most Recently Relevant to Health Maintenance Results * (ABNORMAL) POCT Glucose (10/22/2024 6:43 PM EDT) [facility] Glucose, POCT 121(H) 70 - 100 mg/dL [facility] 10/22/2024 6:43 PM EDT 10/22/2024 6:49 PM EDT us Liu Cutler MD, MPH POINT OF CARE TEST [facility] Final Result Performing Organization Address City/[facility]/ZIP Co de Phone Number [address] [address] * Lab Add On: CK (10/22/2024 10:00 AM EDT) [facility] TEST REQUESTED CK [facility] Comments (Chemistry) ADD ON COMPLETE. [facility] 10/22/2024 10:0 0 AM EDT 10/22/2024 10:06 AM EDT us Trip Mo MD LAB BLOOD ORDERABLES Final Result Performing Organization Address City/[facility]/ZIP Co de Phone Number [address] [address] * ECG 12-LEAD (10/22/2024 9:56 AM EDT) Ventricular Rate EKG/MIN 73 BPM [facility] Atrial Rate 73 BPM [facility] NV Interval 142 ms [facility] QRS Duration 80 ms [facility] QT Interval 394 ms [facility] QTC Interval 434 ms [facility] P [place] 66 degrees [facility] R Wave [place] 63 degrees [facility] T Wave [place] 51 degrees [facility] 10/22/2024 9:56 AM EDT Narrative [facility] - 10/23/2024 7:26 AM EDT Normal sinus rhythm Normal ECG No previous ECGs available us Shree Plaza PA-C, MPH ECG ORDERABLES Final Result [facility] * US PELVIS TRANSABDOMINAL PLUS TRANSVAGINAL WITH DOPPLER (10/22/2024 9:23 AM EDT) Anatomical Region Laterality Modality Pelvis, Uterus/Adnexa Ultrasound 10/22/2024 9:24 AM EDT Impressions 10/22/2024 9:59 AM EDT 1. Small fluid collection adjacent to the scar. 2. No other acute pelvic abnormality. Narrative 10/22/2024 9:59 AM EDT US PELVIS TRANSABDOMINAL AND TRANSVAGINAL WITH DOPPLER Referring clinician's provided indication for this examination in Epic: Pain TECHNIQUE: Pelvic Ultrasound Transabdominal performed for global imaging of the pelvis. Pelvic Ultrasound Transvaginal performed for detailed imaging of the endometrium and/or adnexa. Color and spectral Doppler examination performed. COMPARISON: FINDINGS: LMP: 10/19/2024 Uterus: Size: 9.1 x 4.5 x 4.0 cm. Orientation: anteverted Myometrium: Cyst vs fluid collection around the scar measuring 12 x 6 x 6 mm. Endometrium: Normal. Linear echogenic. Thickness: 2 mm. Right adnexa: Ovary: Normal Adnexal Doppler: Color and spectral Doppler of the right ovary shows normal arterial and venous waveforms. Left adnexa: Ovary: Normal Adnexal Doppler: Color and spectral Doppler of the left ovary shows normal arterial and venous waveforms. Free fluid: No significant free fluid. Comment: limited transvaginal exam due to patient refusing to continue exam. Procedure Note Ayaka Barragan MD, PhD - 10/22/2024 US PELVIS TRANSABDOMINAL AND TRANSVAGINAL WITH DOPPLER Referring clinician's provided indication for this examination in Epic:Pain TECHNIQUE: Pelvic Ultrasound Transabdominal performed for global imagingof the pelvis. Pelvic Ultrasound Transvaginal performed for detailedimaging of the endometrium and/or adnexa. Color and spectral Dopplerexamination performed. COMPARISON: FINDINGS: LMP: 10/19/2024 Uterus: Size: 9.1 x 4.5 x 4.0 cm. Orientation: anteverted Myometrium: Cyst vs fluid collection around the scar duenuzcfl44 x 6 x 6 mm. Endometrium: Normal. Linear echogenic. Thickness: 2 mm. Right adnexa: Ovary: Normal Adnexal Doppler: Color and spectral Doppler of the right ovary showsnormal arterial and venous waveforms. Left adnexa: Ovary: Normal Adnexal Doppler: Color and spectral Doppler of the left ovary shows normalarterial and venous waveforms. Free fluid: No significant free fluid. Comment: limited transvaginal exam due to patient refusing to continueexam. IMPRESSION: 1. Small fluid collection adjacent to the scar. 2. No other acute pelvic abnormality. Shree Plaza PA-C, MPH IM US PELVIS Final Result * Lactate (10/21/2024 7:45 PM EDT) LACTIC ACID (MMOL/L) 1.0 0.5 - 2.0 mmol/L [facility] Blood 10/21/2024 7:45 PM EDT 10/21/2024 10:48 PM EDT Shree Plaza PA-C, MPH LAB BLOOD BKR ORDERAB LES Final Result [facility] [address] [place] [address] * LFTs (hepatic panel) (10/21/2024 6:46 PM EDT) ALBUMIN 4.0 3.5 - 5.2 g/dL [facility] TOTAL BILIRUBIN 0.2 0.0 - 1.0 mg/dL [facility] DIRECT BILIRUBIN 0.1 mg/dL [facility] ALKALINE PHOSPHATASE 68 40 - 130 U/L [facility] AST 22 10 - 50 U/L [facility] ALT 15 10 - 50 U/L [facility] TOTAL PROTEIN 7.0 6.0 - 8.0 g/dL [facility] GLOBULIN 3.0 2.2 - 4.2 g/dL [facility] Blood 10/21/2024 6:46 PM EDT 10/21/2024 10:48 PM EDT us Shree Plaza PA-C, MPH LAB BLOOD BKR ORDERAB LES Final Result [address] [place] [address] * (ABNORMAL) CBC and differential (10/21/2024 6:46 PM EDT) WBC 4.13 4.00 - 11.00 K/uL [facility] RBC 4.50 4.00 - 5.20 M/uL [facility] HGB 11.4(L) 12.0 - 16.0 g/dL [facility] HCT 35.6(L) 36.0 - 46.0 % [facility] PLT 266 150 - 450 K/uL [facility] MCV 79.1(L) 80.0 - 100.0 fL [facility] MCH 25.3(L) 27.0 - 31.0 pg [facility] MCHC 32.0 32.0 - 36.0 g/dL [facility] RDW 15.6(H) 11.5 - 14.5 % [facility] MPV 10.1 8.4 - 12.0 fL [facility] NRBC 0.00 0.00 /100 WBCs [facility] ABSOLUTE NRBC 0.00 0.00 K/uL [facility] DIFF METHOD Auto [facility] NEUTS 31.6(L) 48.0 - 76.0 % [facility] LYMPHS 53.0(H) 18.0 - 41.0 % [facility] MONOS 9.9 4.0 - 11.0 % [facility] EOS 3.6 0.0 - 5.0 % [facility] BASOS 1.7(H) 0.0 - 1.5 % [facility] Granulocytes, immature (%) 0.2 0.0 - 0.9 % [facility] ABSOLUTE NEUTS 1.30(L) 1.92 - 7.60 K/uL [facility] ABSOLUTE LYMPHS 2.19 0.72 - 4.10 K/uL [facility] ABSOLUTE MONOS 0.41 0.16 - 1.10 K/uL [facility] ABSOLUTE EOS 0.15 0.00 - 0.50 K/uL [facility] ABSOLUTE BASOS 0.07 0.00 - 0.15 K/uL [facility] Granulocytes, immature 0.01 0.00 - 0.09 K/uL [facility] Blood 10/21/2024 6:46 PM EDT 10/21/2024 10:48 PM EDT us Shree Plaza PA-C, MPH LAB BLOOD BKR ORDERAB LES Final Result Performing Organization Address [facility]/ZIP Co de Phone Number [address] [address] * HCG (Quantitative, Blood) (10/21/2024 6:46 PM EDT) HCG (Quantitative) <2 IU/L [facility] Comment: <3 IU/L=Negative, 3-8 IU/L may indicate early (repeat in 48hrs), >8 IU/L=Positive. HCG REFERENCE RANGE: NON: < OR = 2 IU/L : 3 - 60,000 IU/L Blood 10/21/2024 6:46 PM EDT 10/21/2024 10:48 PM EDT us Shree Plaza PA-C MPH LAB BLOOD BKR ORDERAB LES Final Result Performing Organization Address [facility] Co de Phone Number [address] [address] * Magnesium (10/21/2024 6:46 PM EDT) MAGNESIUM 1.7 1.7 - 2.6 mg/dL [facility] Blood 10/21/2024 6:46 PM EDT 10/21/2024 10:48 PM EDT us Shree Plaza PA-C MPH LAB BLOOD BKR ORDERAB LES Final Result Performing Organization Address City/[facility]/ZIP Co de Phone Number [address] [address] * Lipase (10/21/2024 6:46 PM EDT) LIPASE 40 13 - 60 U/L [facility] Blood 10/21/2024 6:46 PM EDT 10/21/2024 10:48 PM EDT us Shree Plaza PA-C, MPH LAB BLOOD BKR ORDERAB LES Final Result Performing Organization Address [facility]/[place] [address] * (ABNORMAL) CPK (creatine kinase) (10/21/2024 6:46 PM EDT) CREATINE KINASE 43(L) 50 - 185 U/L [facility] 10/21/2024 6:46 PM EDT 10/21/2024 10:48 PM EDT us Shree Plaza PA-C MPH LAB BLOOD BKR ORDERAB LES Final Result Performing Organization Address [facility] [place] [address] * (ABNORMAL) Basic metabolic panel (10/21/2024 6:46 PM EDT) SODIUM 137 136 - 145 mmol/L [facility] CHLORIDE 104 98 - 107 mmol/L [facility] POTASSIUM 3.7 3.4 - 5.0 mmol/L [facility] CO2 21(L) 22 - 31 mmol/L [facility] BUN 12 6 - 23 mg/dL [facility] CREATININE 0.60 0.50 - 1.20 mg/dL [facility] GLUCOSE 107 70 - 115 mg/dL [facility] Comment:Note: ADA guidelines consider any fasting glucose above 100 mg/dL as pre-diabetic. CALCIUM 9.6 8.6 - 10.7 mg/dL [facility] EGFR 116 >60 mL/min/1.7 3m2 [facility] Comment:Estimated glomerular filtration rate calculated using the CKD-EPI refit equation. ANION GAP 12 3 - 15 mmol/L [facility] Blood 10/21/2024 6:46 PM EDT 10/21/2024 10:48 PM EDT Shree Plaza PA-C, MPH LAB BLOOD BKR ORDERAB LES Final Result Performing Organization Address [facility]/ZIP Co de Phone Number [facility] [address] [place] [address] * Hepatitis C RNA (02/28/2024 9:40 AM EST) [facility] HCV RNA Detect/Quant Undetected Undetected IU/mL [facility] Comment: (NOTE) Result in log IU/mL is Undetected. Genotype testing was not performed due to HCV viral load below 500 IU/mL. ADDITIONAL INFORMATION The quantification range of this assay is 15 to 100,000,000 IU/mL (1.18 log to 8.00 log IU/mL). Testing was performed using the wong HCV test ([employer] Blood 02/28/2024 9:40 AM EST 02/28/2024 10:13 AM EST us Magdy Burnette PMHN- LAB BLOOD ORDERABLES Carole l Result Performing Organization Address [facility] Co de Phone Number [facility] [address] [place] [address] from Last 3 Months or Most Recently Relevant to Health [place] [address] [facility] C3 ACO C3 ACO [address] C[address] ACO [address] C3 [facility] [address] C[address] [place] [address] [address]CO C[address]CO [address] [place] [address] [place] [address] C3 ACO [facility] [address] [place] [address] [place] [address] [place] [address] [address] [address] [place] [address] [facility] [place] [address] ACO ACO Advance Directives For more information, please contact: [phone] (9AM - 5PM [facility], Saturday-Saturday) * Full Code (Latest Code Status on File) Date Activated Date Inactivated Comments 03/30/2024 12:31 PM Question Answer Comments Code Status Confirmed With: Patient * Full Code Date Activated Date Inactivated Comments 08/29/2021 11:14 AM 03/30/2024 12:31 PM Question Answer Comments Code Status Confirmed With: Patient Care Teams Manager Office Services Relationship Specialty Start Date End Date Edwige Chang MD [address] [place] [address] PCP - General Family Medicine 09/17/23 Edwige Chang MD [address] [place] [address] [email or web address] Family Medicine 02/06/21 Additional Source Comments The information contained in this document represents components of the legal health record. It is not the complete legal health record.[facility]
--- OUTSIDE RECORDS SUMMARY | 2024-12-13 13:02 | XMS_ITS | Encounter Summary ---
Author Organization [employer] Address [address] [place] [address] [address] [place] [address] Care Team Providers Care Supervisor Plate Forming Name Role Phone Preeti Holland CYLINDER MACHINE OPERATOR Unavailable Unavailable Edwige Chang MD Primary Care Provider [phone] Juana Huggins Unavailable Unavailable Charli SaundersW Unavailable [phone] Keri South Unavailable Reason for Visit * Reason Comments Med Refill Encounter Details Date Type Department Care Team (Late st Contact Info) Description 02/21/2022 Refill Marc [facility] [address] [place] [address] Edwige Chang MD [address] [place] [address] Medication refill Social History Tobacco Use Types [...] prescriptions documented in this encounter Care Teams Supervisor Plate Forming Relationship Specialty Start Date End Date Edwige Chang MD [address] [place] [address] PCP - General Family Medicine 01/17/22 Preeti Holland FNP Family Medicine 12/08/21 Juana Huggins Health Navigator Case Management 02/06/22 Charli Saunders LCSW Punch Card Operator Behavioral Health 09/09/24 Keri South Punch Card Operator Behavioral Health 09/09/24 documented as of this encounter
--- OUTSIDE RECORDS SUMMARY | 2024-12-13 13:02 | XMS_ITS | Encounter Summary ---
Author Organization [employer] Address [address] [place] [address] 7t [place] [address] Care Team Providers Care Patient Relations Representative Name Role Phone AmaliaPreeti RN LPN CNA Unavailable Unavailable Edwige Chang MD Primary Care Provider [phone] Juana Huggins Unavailable Unavailable Charli Saunders SUPERINTENDENT REFUSE DISPOSAL Unavailable [phone] Keri South Unavailable Encounter Details Date Type Department Care Team (Late st Contact Info) Description 04/06/2024 Orders Only [facility] Information Management [address] [place] [address] Edwige Chang MD [address] [place] [address] Social History Tobacco Use Types Packs/Day Years [...] documented as of this encounter Care Teams Patient Relations Representative Relationship Specialty Start Date End Date Edwige Chang MD [address] [place] [address] PCP - General Family Medicine 01/17/22 Preeti Holland FNP Family Medicine 12/08/21 Juana Huggins Health Navigator Case Management 02/06/22 Charli Saunders LCSW Reinforcing Steel Erector Behavioral Health 09/09/24 Keri South Reinforcing Steel Erector Behavioral Health 09/09/24 documented as of this encounter
--- OUTSIDE RECORDS SUMMARY | 2024-12-13 13:02 | XMS_ITS ---
Author Organization [employer] Address [address] [place] [address] 7t [place] [address] Care Team Providers Care Dag Coater Name Role Phone Preeti Holland ROPE MACHINE SETTER Unavailable Unavailable Edwige Chang MD Primary Care Provider [phone] Juana Huggins Unavailable Unavailable Charli Saunders ORACLE ENDECA CONSULTANT Unavailable [phone] Keri South Unavailable [facility] [facility] Status:Outreach In Progress (Enrolling) Start date:09/09/2024 Enrollment reason:ADT Feed Overview Roseour Case Team Name Relationship Phone Keri South(Responsible Staff) Molder Bench Continued Care and Services Coordination
--- OUTSIDE RECORDS SUMMARY | 2024-12-13 13:02 | XMS_ITS | Encounter Summary ---
Author Organization [employer] Address [address] [place] [address] 7t [place] [address] Care Team Providers Care Bleacher Operator Name Role Phone AmaliaPreeti EMERGENCY SPECIALIST Unavailable Unavailable Edwige Chang MD Primary Care Provider [phone] Juana Huggins Unavailable Unavailable Charli Saunders HEAD CHAR FILTER TANK TENDER Unavailable [phone] Keri South Unavailable Reason for Visit * Reason Onset Date Comments PT-1 10/20/2024 Encounter Details Date Type Department Care Team (Late st Contact Info) Description 10/20/2024 Telephone [facility] MEDICAL [address] [place] [address] Edwige Chang MD [address] [place] [address] PT-1 Social History Tobacco Use Types Packs/Day Years [...] encounter Miscellaneous Notes * Telephone Encounter - SamsonKodysinghbrad Kenna - 10/20/2024 3:41 PM EDT PT-1 request Via Mail Control # [id number] Patient Address: [address] [place] [address] New Media Strategist: OCTAVIO CAC Adult dental [address] [place] [facility] [address] Expiration: 11/10/24 documented in this encounter Plan of Treatment Not on file documented as of this encounter Visit Diagnoses Not on filedocumented in this encounter Additional Health Concerns Assessment Noted Time PHQ-9 Depression Total Score: 16 024 10:34 AM EDT documented as of this encounter Care Teams Bleacher Operator Relationship Specialty Start Date End Date Edwige Chang MD [address] [place] [address] PCP - General Family Medicine 01/17/22 Preeti Holland FNP Family Medicine 12/08/21 Juana Huggins Health Navigator Case Management 02/06/22 Charli Saunders LCSW Computer Technical Specialist Behavioral Health 09/09/24 Keri South Computer Technical Specialist Behavioral Health 09/09/24 documented as of this encounter
--- OUTSIDE RECORDS SUMMARY | 2024-12-13 13:03 | XMS_ITS | Encounter Summary ---
Author Organization [facility] Address [address] [facility] 7t [place] [address] Care Team Providers Care Rare/Endangered Species Specialist Name Role Phone HollandPreeti navas [place]OR[place] Unavailable Unavailable Edwige Chang MD Primary Care Provider [phone] Juana Huggins Unavailable Unavailable Charli Saunders LCSW Unavailable [phone] Keri South Unavailable Encounter Details Date Type Department Care Team ([facility] st Contact Info) Description 12/10/2024 Patient Outreach [facility] ([facility]) Department 75 [facility] 7 [place] [address] Charli Saudners LCSW Social History Tobacco Use Types Packs/Day Years [...] PM EDT documented as of this encounter Progress Notes * Charli Saunders LCSW - 12/10/2024 1:19 PM EDT 2nd outreach attempt - no call back documented in this encounter Plan of Treatment Not on file documented as of this encounter Visit Diagnoses Not on filedocumented in this encounter Additional Health Concerns Assessment Noted Time PHQ-9 Depression Total Score: 16 024 10:34 AM EDT documented as of this encounter Care Teams Rare/Endangered Species Specialist Relationship Specialty Start Date End Date Edwige Chang MD [address] [place] [address] PCP - General Family Medicine 01/17/22 Preeti Holland FNP Family Medicine 12/08/21 Juana Huggins Health Navigator Case Management 02/06/22 Charli Saunders LCSW Saddle Maker Behavioral Health 09/09/24 Keri South Saddle Maker Behavioral Health 09/09/24 documented as of this encounter
--- OUTSIDE RECORDS SUMMARY | 2024-12-13 13:03 | XMS_ITS | Clinical Summary ---
Author Organization [employer] Address [address] [facility] 7t [place] [address] Care Team Providers Care Drop Press Hand Name Role Phone Preeti Holland Unavailable Unavailable Edwige Chang MD Primary Care Provider [phone] Juana Huggins Unavailable Unavailable Charli SaundersW Unavailable [phone] Keri South Unavailable Allergies Active Allergy Reactions Criticality Noted Date Comments Bee Pollen 06/28/2023 hives Dog Epithelium 06/28/2023 Pollen Extract 06/28/2023 hives Pork Allergy 07/13/2024 Medications * This document contains information received from the source organization and may not represent a complete record from that organization. nicotine polacrilex (Nicorette) 4 MG gum Chew 1 each (4 mg) every 2 (two) hours if needed for smoking cessation. Fruit Flavor please 100 each 2 Active Additional Information Patient not taking.Reported on 07/13/2024 Multiple Vitamin (Multi-Vitamin) tablet Take 1 tablet by mouth Once per day. Active QUEtiapine (SEROquel) 200 MG tabletIndication s:Bipolar affective disorder, current episode manic with psychotic symptoms (CMS/HCC) (HCC),Insomnia due to other mental disorder Take 1 tablet (200 mg) by mouth at bedtime. 30 tablet 5 4 Active Additional Information Patient not taking.Reported on 07/13/2024 gabapentin (Neurontin) 300 MG capsuleIndicatio ns:Bipolar affective disorder, current episode manic with psychotic symptoms (CMS/HCC) (HCC) Take 1 capsule (300 mg) by mouth 3 times daily. 90 capsule 4 Active Additional Information Patient not taking.Reported on 07/13/2024 LORazepam (Ativan) 2 MG tabletIndication s:Bipolar affective disorder, current episode manic with psychotic symptoms (CMS/HCC) (HCC) Take 1 tablet (2 mg) by mouth if needed in the morning, at noon, and at bedtime for anxiety for up to 14 days. 42 tablet 4 Active Additional Information Patient not taking.Reported on 07/13/2024 topiramate (Topamax) 25 MG tabletIndication s:Bipolar affective disorder, current episode manic with psychotic symptoms (CMS/HCC) (HCC) Take 1 tablet (25 mg) by mouth 2 times daily for 14 days. 28 tablet 4 Active Additional Information Patient not taking.Reported on 07/13/2024 cloNIDine (Catapres) 0.1 MG tablet Take 1 tablet by mouth 6 (six) times a day. 5 Active Ventolin HFA 108 (90 Base) MCG/ACT inhalerIndicatio ns:Mild intermittent asthma without complication Inhale 2 puffs every 6 (six) hours if needed for wheezing. 18 g 5 Active Active Problems Problem Noted Date Diagnosed Date Allergic rhinitis 11/18/2023 Amenorrhea 11/18/2023 Facial swelling 11/18/2023 Severe obesity (BMI 35.0-39.9) with comorbidity ([facility]/HCC) 11/18/2023 Tinea pedis 11/18/2023 Wheezing 11/18/2023 Post [...] 07/26/2022 Anxiety 04/10/2022 Cocaine abuse in remission ([facility] 04/10/2022 Assessment & Plan (06/04/2022 9:15 AM EDT): Clean since Jan 13. 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 ([facility]) 04/10/2022 History of substance abuse ([facility]) 04/10/2022 Impaired fasting glucose 04/10/2022 Mixed hyperlipidemia 04/10/2022 Psychosis ([facility]) 04/10/2022 Schizoaffective disorder, bipolar type ([facility]) 04/10/2022 Housing instability after recent homelessness Assessment & Plan (06/04/2022 9:16 AM EDT): See HPI Bipolar affective disorder, current episode manic with psychotic symptoms ([facility]) 08/29/2021 Assessment & Plan (06/04/2022 9:14 AM EDT): Extremely poor insight and judgement. I cannot follow her train of thought. Recent hospitalization. Has 3 children, grown, no custody. Partner has 2 kids, no custody. Wants to have her BTL reversed. Makes statements like I got at [employer] . I tried to give 2 weeks notice, but they wanted it in writing, but I didn't have a pen. . Jumps from subject to subject. Increasing olanzapine. Type II or unspecified type diabetes mellitus with renal manifestations, uncontrolled(250.42) ([facility]) 04/11/2021 Schizoaffective disorder, depressive type ([facility]/H CC) 04/11/2021 Pre-diabetes 03/30/2021 Primary insomnia 03/30/2021 Mild intermittent asthma 08/31/2019 Opioid dependence in remission ([facility]) 020 Assessment & Plan (06/04/2022 9:15 AM EDT): Reports being clean since Jan 13. Recurrent major depressive disorder, in remissio n 08/31/2019 Tobacco dependence syndrome 08/31/2019 Resolved Problems Problem Noted Date Diagnosed Date Resolved Date Bipolar disorder, curr episo de mixed, severe, w/o psychotic features ([facility]/HCC) 04/10/2022 023 Complex posttraumatic stress disorder 08/31/2019 06/04/2022 Encounters Date Type Department Care Team Description 12/10/2024 Patient Outreach [facility] Department [address] [place] [address] Charli Saunders LCSW 12/09/2024 Patient Outreach [facility] Department [address] [place] [address] Charli Saunders LCSW 12/09/2024 Patient Outreach [facility] Department [address] [place] [address] Kameron Echols 12/08/2024 Patient Outreach [facility] Department [address] [place] [address] Charli Saunders LCSW 12/07/2024 Patient Outreach [facility] Department [address] [place] [address] Charli Saunders LCSW 12/02/2024 Patient Outreach [facility] Department [address] [place] [address] Keri South 12/01/2024 Patient Outreach [facility] Department [address] [place] [address] Charli Saunders LCSW 11/25/2024 Patient Outreach [facility] Department [address] [place] [address] SouthKeri wilks 11/25/2024 Patient Outreach [facility] Department [address] [place] [address] SouthKeri wilks 11/25/2024 Patient Outreach [facility] Department [address] [place] [address] Charli Saunders LCSW 11/24/2024 Patient Outreach [facility] Department [address] [phone] South, Keri 11/24/2024 Patient Outreach [facility] Department [address] [place] [address] South, Keri 11/19/2024 Patient Outreach [facility] Department [address] [place] [address] South, Keri 11/19/2024 Patient Outreach [facility] Department [address] [place] [address] South, Keri 11/19/2024 Patient Outreach [facility] Department [address] [place] [address] South, Keri 11/18/2024 Patient Outreach [facility] Department [address] [place] [address] South, Keri 11/17/2024 Patient Outreach [facility] Department [address] [place] [address] Charli Saunders LCSW 11/17/2024 Patient Outreach [facility] Department [address] [place] [address] South, Keri 11/12/2024 Patient Outreach [facility] Department [address] [place] [address] South, Ekri 11/11/2024 Patient Outreach [facility] Department [address] [place] [address] Charli Saunders LCSW 11/04/2024 Patient Outreach [facility] Department [address] [place] [address] South, Keri 11/03/2024 Patient Outreach [facility] Department [address] [place] [address] Charli Saunders LCSW 10/28/2024 Patient Outreach [facility] [address] [place] [address] SouthKeri wilks 10/27/2024 Patient Outreach [facility] Department [address] [place] [address] Charli Saunders LCSW 10/22/2024 Patient Outreach [facility] [address] [place] [address] SouthKeri wilks 10/22/2024 Patient Outreach [facility] [address] [place] [address] May Murphy LICSW 10/21/2024 Patient Outreach [facility] [address] [place] [address] May Murphy LICSW 10/20/[address] [address] Edwige Chang MD PT-1 10/16/2024 Patient Outreach [facility] Department [address] [place] [address] SouthKeri wilks 10/14/2024 Patient Outreach [facility] Department [address] [place] [address] Charli Saunders LCSW 10/08/2024 Patient Outreach [facility] Department [address] [place] [address] SouthKeri wilks 10/07/2024 Patient Outreach [facility] Department [address] [place] [address] SouthKeri wilks 10/06/2024 Patient Outreach [facility] Department [address] [place] [address] Charli Saunders LCSW 10/01/2024 Patient Outreach [facility] Department [address] [place] [address] South Keri 09/30/2024 Patient Outreach [facility] Department [address] [place] [address] Alla Willoughby 09/29/2024 Patient Outreach [facility] Department [address] [place] [address] Charli Saunders LCSW 09/29/2024 Patient Outreach [facility] Department [address] [place] [address] SouthMai navaszy 09/24/2024 Patient Outreach [facility] Department [address] [place] [address] South, Keri 09/24/2024 Patient Outreach [facility] Department [address] [place] [address] SouthMai wilkszy 09/24/2024 Patient Outreach [facility] Department [address] [place] [address] SouthMai wilkszy 09/23/2024 Patient Outreach [facility] Department [address] [place] [address] Charli Saunders LCSW 09/22/2024 Patient Outreach [facility] Department [address] [place] [address] Charli Saunders LCSW 09/15/2024 Patient Outreach [facility] Department [address] [place] [address] Charli Saunders LCSW 09/15/2024 Patient Outreach [facility] Department [address] [place] [address] Alla Willoughby 09/15/2024 Patient Outreach [facility] Department [address] [place] [address] Charli Saunders LCSW from Last 3 Months Immunizations Immunization Administration Dates Next Due Influenza, IIV3, injectable [...] Sign Reading Time Taken Comments Blood Pressure 130/74 07/13/2024 10:11 AM EDT Pulse 74 07/13/2024 10:11 AM EDT Temperature 36.7 C (98 F) 07/13/2024 10:11 AM EDT Respiratory Rate 18 07/13/2024 10:11 AM EDT Oxygen Saturation 97% 07/13/2024 10:11 AM EDT Inhaled Oxygen Concentration - - Weight 97.7 kg (215 lb 6.4 oz) 07/13/2024 10:11 AM EDT Height 168.9 cm (5' 6.5 ) 07/13/2024 10:11 AM ED T Body Mass Index 34.25 07/13/2024 10:11 AM EDT Plan of Treatment Health Maintenance Due Date Last Done Comments SDOH Screening 1984 Disability Screening 1984 Alcohol/Substance Use Screening 1996 Family Planning (PISQ) 07/02/1999 HPV Vaccines (1 - 3-dose series) 07/02/1999 Hepatitis B Vaccines (1 of 3 - 19+ 3-dose series) 07/02/2003 Pneumococcal Vaccine: Pediatrics (0 to 5 Years) and At-Risk Patients (6 to 49) Years (1 of 2 - PCV) 07/02/2003 Pap Smear 2005 Cervical Cancer Screening 2014 HPV/Cotest 2014 Dental Oral Exam 01/19/2022 07/19/2021 Dental Prophylaxis 01/19/2022 07/19/2021, 02/08/2021 Depression Monitoring 12/29/2023 06/28/2023, 024 Dental X-Ray: Full Mouth 02/10/2024 02/08/2021 Mammogram 2024 COVID-19 Vaccine ( season) 2024 05/09/2022, 04/14/2020, 03/14/2020 Influenza Vaccine (#1) 2024 , 12/14/2023, 12/01/2010 Dental X-Ray: Bitewings 11/11/2024 11/11/2023, 02/08 Tobacco Screening 03/05/2025 03/05/2024 Diabetes: Hemoglobin A1C 07/22/2025 025, 02/22/2024, 12/19/2023, Additional history exists Lipid Panel 03/31/2029 03/31/2024, 07/19/2021 DTaP/Tdap/Td Vaccines (2 - Td or Tdap) 02/24/2030 02/25/2020 Zoster Vaccines (1 of 2) 2034 RSV Patients and Patients Aged 60 years or older (1 - 1-dose 75+ series) 07/02/2059 HIV Screening Completed 10/31/2021, 07/19/2021 Hepatitis C Screening Completed 10/31/2021 HIB Vaccines Aged Out [...] PANEL, STANDARD Routine 03/31/2024 4:22 PM EST BITEWINGS - 2 RADIOGRAPHIC IMAGES Routine [...] HEPATITIS C ANTIBODY NON-REACT LAMINE NON-REACT [facility] INDEX 0.06 <1.00 [facility] Comment: HCV antibody was non-reactive. There is no laboratory evidence of HCV infection. In most cases, no further action is required. However, if recent HCV exposure is suspected, a test for HCV RNA (test code 31313) is suggested. For additional information please refer to http://education.[employer] Sep[employer]ations/faq/LYO97j4 (This link is being provided for informational/ educational purposes only.) 10/31/2021 10:5 0 AM EDT Levar Herrera MD HISTORICAL/NON ORDERABLE LABS Final Result Performing Organization Address [facility] de Phone Number [facility] [address] [place] [address], * HIV 1/2 ANTIGEN/ANTIBODY,FOURTH GENERATION W/RFL (10/31/2021 10:50 AM EDT) HIV-1/2 ANTIGEN AND ANTIBODIES, 4TH GENERATION W/ REFLEX NON-REACT LAMINE NON-REACT LAMINE [facility] Comment: HIV-1 antigen and HIV-1/HIV-2 antibodies were not detected. There is no laboratory evidence of HIV infection. PLEASE NOTE: This information has been disclosed to you from records whose confidentiality may be protected by state law. If your state requires such protection, then the state law prohibits you from making any further disclosure of the information without the specific written consent of the person to whom it pertains, or as otherwise permitted by law. A general authorization for the release of medical or other information is NOT sufficient for this purpose. For additional information please refer to http://education.[employer]Sensor.Au FINANCIERS/faq/UKR029 (This link is being provided for informational/ educational purposes only.) The performance of this assay has not been clinically validated in patients less than 2 years old. 10/31/2021 10:5 0 AM EDT Levar Herrera MD LAB BLOOD ORDERABLES Final Res ult Performing Organization Address [facility] de Phone Number [facility] [address] [place] [address], * (ABNORMAL) -Hemoglobin A1C w/Est Glucose (07/19/2021 2:11 PM EDT) Hemoglobin A1c 6.2(H) (4.0-5.6) % [facility] Comment: MONITORING: In known diabetic patients, hemoglobin A1c targets should be discussed with health care provider. DIAGNOSTIC USE: The [place] Diabetes Association (ADA) and the World Health [...] Chang MD HISTORICAL/NON ORDERABLE LABS Final Result [facility] [address] from Last 3 Months or Most Recently Relevant to Health Maintenance Insurance Keepy C3 Keepy C3 Care Teams Drop Press Hand Relationship Specialty Start Date End Date Edwige Chang MD [address] [place] [address] PCP - General Family Medicine 01/17/22 Preeti Holland FNP Family Medicine 12/08/21 Juana Huggins Health Navigator Case Management 02/06/22 Charli Saunders, LUISITO Tandem Mill Sticker Behavioral Health 09/09/24 Keri South Tandem Mill Sticker Behavioral Health 09/09/24
--- OUTSIDE RECORDS SUMMARY | 2024-12-13 13:03 | XMS_ITS | Encounter Summary ---
Author Organization [employer] [facility] Address [address] [facility] 7t [place] [address] Care Team Providers Care In Flight Crew Member Name Role Phone Preeti Holland FLOR[place] Unavailable Unavailable Edwige Chang MD Primary Care Provider [phone] Juana Huggins Unavailable Unavailable Charli Saunders LCSW Unavailable [phone] Keri South Unavailable Encounter Details Date Type Department Care Team ([facility] st Contact Info) Description 12/09/2024 Patient Outreach [facility] ([facility]) Department [address] [facility] 7 [place] [address] Charli Saunders LCSW Social History Tobacco Use Types Packs/Day [...] Progress Notes * Charli Saunders LCSW - 12/09/2024 11:59 PM EDT 1st outreach unsuccessful [phone] lvm requesting TW info be passed along to mbr for callback Tried # in [facility] [phone] unsuccessful contact; line was answered and immediately disconnected documented in this encounter Plan of Treatment Not on file documented as of this encounter Visit Diagnoses Not on filedocumented in this encounter Additional Health Concerns Assessment Noted Time PHQ-9 Depression Total Score: 16 024 10:34 AM EDT documented as of this encounter Care Teams In Flight Crew Member Relationship Specialty Start Date End Date Edwige Chang MD [address] [place] [address] PCP - General Family Medicine 01/17/22 Preeti Holland FNP Family Medicine 12/08/21 Juana Huggins Health Navigator Case Management 02/06/22 Charli Saunders LCSW Shot Blast Equipment Operator Behavioral Health 09/09/24 Keri South Shot Blast Equipment Operator Behavioral Health 09/09/24 documented as of this encounter
--- OUTSIDE RECORDS SUMMARY | 2024-12-13 13:03 | XMS_ITS | Encounter Summary ---
Author Organization [employer] Address [address] [place] [address] 7[address] [place] [address] Care Team Providers Care Deputy General Counsel Name Role Phone AmaliaPreeti OVERLAY OPERATOR Unavailable Unavailable Edwige Chang MD Primary Care Provider [phone] Juana Huggins Unavailable Unavailable Charli Saunders INDIAN BLANKET WEAVER Unavailable [phone] Keri South Unavailable Encounter Details Date Type Department Care Team (Late st Contact Info) Description 05/04/2024 Orders Only [facility] [address] [place] [address] Edwige Chang MD [address] [place] [address] Social History Tobacco Use Types Packs/Day Years [...] documented as of this encounter Care Teams Deputy General Counsel Relationship Specialty Start Date End Date Edwige Chang MD [address] [place] [address] PCP - General Family Medicine 01/17/22 Preeti Holland FNP Family Medicine 12/08/21 Juana Huggins Health Navigator Case Management 02/06/22 Charli Saunders LCSW [employer] Worker Behavioral Health 09/09/24 Keri South [employer] Worker Behavioral Health 09/09/24 documented as of this encounter
--- OUTSIDE RECORDS SUMMARY | 2024-12-13 13:03 | XMS_ITS | Encounter Summary ---
Author Organization [facility] Address [address] [facility] 7[address] [place] [address] Care Team Providers Care Reservation Manager Name Role Phone Amalia Preeti AIR CHIPPER Unavailable Unavailable Edwige Chang MD Primary Care Provider [phone] Juana Huggins Unavailable Unavailable Charli Saunders LCSW Unavailable [phone] Keri South Unavailable Encounter Details Date Type Department Care Team ([facility] st Contact Info) Description 12/09/2024 Patient Outreach [facility] ([facility]) Department [address] [facility] [address] [place] [address] Kameron Echols Social History Tobacco Use Types Packs/Day Years [...] documented as of this encounter Care Teams Reservation Manager Relationship Specialty Start Date End Date Edwige Chang MD [address] [facility] [place] [address] PCP - General Family Medicine 01/17/22 Preeti Holland FNP Family Medicine 12/08/21 Juana Huggins Health Navigator Case Management 02/06/22 Charli Saunders LCSW Leather Tooler Behavioral Health 09/09/24 Keri South Leather Tooler Behavioral Health 09/09/24 documented as of this encounter
--- OUTSIDE RECORDS SUMMARY | 2024-12-13 13:03 | XMS_ITS | Encounter Summary ---
Author Organization [facility] Address [address] [facility] 7t [place] [address] Care Team Providers Care Beam Press Operator Name Role Phone HollandPreeti navas FLORENCE Unavailable Unavailable Edwige Chang MD Primary Care Provider [phone] Juana Huggins Unavailable Unavailable Charli Saunders LCSW Unavailable [phone] Keri South Unavailable Encounter Details Date Type Department Care Team (Late st Contact Info) Description 12/08/2024 Patient Outreach [facility] ([facility]) Department [address] [facility] 7 [place] [address] Charli Saunders LCSW Social History [...] Progress Notes * Charli Saunders LCSW - 12/08/2024 12:48 PM EDT Care cord w/ SW Chel; Phyllis dc today to [facility] ;KENDALL received dc summary, uploaded tochart and sent to [facility]; phyllis does not have a phone at this time documented in this encounter Plan of Treatment Not on file documented as of this encounter Visit Diagnoses Not on filedocumented in this encounter Additional Health Concerns Assessment Noted Time PHQ-9 Depression Total Score: 16 024 10:34 AM EDT documented as of this encounter Care Teams Beam Press Operator Relationship Specialty Start Date End Date Edwige Chang MD [address] [place] [address] PCP - General Family Medicine 01/17/22 Preeti Holland FNP Family Medicine 12/08/21 Juana Huggins Health Navigator Case Management 02/06/22 Charli Saunders LCSW Telesales Team Leader Behavioral Health 09/09/24 Keri South Telesales Team Leader Behavioral Health 09/09/24 documented as of this encounter
--- NOTE | 2024-12-13 13:13 | PC.NURSE ---
iv inserted, labs drawn, ivf started per order.
[2024-12-13 13:14] LABS: MANUAL DIFF FLAG NO
[2024-12-13 13:15] LABS: Hematocrit 35.0 % (37.0-47.0); Hemoglobin 11.7 g/dl (12.0-16.0); Imm Gran Abs Auto 0.01 X10*3/uL (0.00-0.03); Imm Gran Pct Auto 0.2 % (0.0-0.4); Lymphocytes Absolute Auto 2.4 X10*3/uL (1.2-4.9); Mean Corpuscular HGB Conc 33.4 g/dl (31.0-35.0); Mean Corpuscular Hemoglobin 26.1 pg (27.0-33.0); Mean Corpuscular Volume 78.0 fL (80.0-98.0); NRBC Abs Auto 0.000 X10*3/uL (0.0-0.012); NRBC Pct Auto 0.0 /100WBC (0.0-0.2); Platelet Count 301 X10*3/uL (160-400); Red Blood Count 4.49 X10*6/uL (4.20-5.50); White Blood Count 5.2 X10*3/uL (4.8-10.8)
[2024-12-13 13:31] LABS: Alanine Aminotransferase 21 U/L (0-31); Albumin Level 4.5 g/dL (3.5-5.0); Alkaline Phosphatase 67 U/L (39-117); Anion Gap 15 (12-20); Aspartate Amino Transferase 40 U/L (5-31); Blood Urea Nitrogen 17 mg/dL (9-16); Calcium 9.4 mg/dL (8.4-10.2); Carbon Dioxide 25 mmol/L (22-29); Chloride 104 mmol/L (96-108); Creatinine Clr Calc Pharmacy 131.4; Estimated Glomerular Filt Rate > 60; Lipase 20 U/L (8-78); Potassium 3.6 mmol/L (3.3-5.1); Sodium 140 mmol/L (135-145); Total Protein 7.4 g/dL (6.5-8.0)
--- NOTE | 2024-12-13 13:38 | PC.NURSE ---
pt agaitated, screaming, pt again medicated for continued agitation- see paper documentation
[2024-12-13 15:56] LABS: Appearance Urine Clear; Glucose Urine UA Negative (Negative); PH 6.5 (5.0-9.0); Specific Gravity - Urine <= 1.005 (1.005-1.025)
[2024-12-13 16:05] LABS: Cannabinoid Screen Urine Not Detected (Not Detect)
--- NOTE | 2024-12-13 17:12 | PC.NURSE ---
Assumed care of patient at 1710, patient appears to be in no apparent distress at this time, kneeling on bed praying. Continue plan of care for IPLOC
--- NOTE | 2024-12-13 17:28 | PC.NURSE ---
unable to obtain medication history due to patient's altered mental status and inability to recall information at this time. Per med rec history, patient has not filled her medications since earlier this year
--- NOTE | 2024-12-14 00:52 | PC.NURSE ---
took over care from ELVI Rea at 23:00, pt sleeping no sign of distress.
--- NOTE | 2024-12-14 02:07 | PC.NURSE ---
pt sleeping at this time.
--- NOTE | 2024-12-14 03:26 | PC.NURSE ---
pt oob to bathroom, went into the shower, redirected, back too bed.
--- NOTE | 2024-12-14 04:56 | PC.NURSE ---
pt passing in room.
--- NOTE | 2024-12-14 08:01 | MHC.EDTECH ---
Patient to bathroom at 0750. This tech checked patient twice between 0650 to 0700. This tech saw patient lay themselves on the bathroom floor. Opened door to speak with patient. Patient did not acknowledge this tech and seemed disoriented to time and place. Unable to engage patient in conversation. RN made aware at this time. Continued to observe patient between 0700 and 0730 at RN's request. Unable to redirect/engage with patient. 0730 security called to assist with patient back to room. Patient lifted by staff and security and placed in wheelchair and escorted to room and laid in bed with covers.
--- NOTE | 2024-12-14 08:08 | PC.NURSE ---
Pt at 7am walked to the BR, she was observed a short time after laying on the floor with her underware down and noted to have a fixed gaze. Multiple attempts made to connect with her and get her to get off the floor. Support from security is provided to lift her off the floor, she was unable to stand on her own at this time and placed in a WC for transfer to her bed. she has remained laying down, awake, a fixed gaze to the ceiling, no verbalization and making slow arm movements in the air.
[2024-12-14 08:40] VITALS: RESP 12
--- NOTE | 2024-12-14 08:40 | MHC.EDTECH ---
Patient unable to participate in vital signs at this time. Respirations even and unlabored. Rn aware.
--- NOTE | 2024-12-14 12:44 | PHA.MEDREC ---
Pharmacy Consult ? Medication Reconciliation Pharmacy has completed the medication reconciliation. Reviewed med rec done by nursing.
--- NOTE | 2024-12-14 13:08 | PC.NURSE ---
Pt got into WC willing with tech and security to be escorted up stairs.
[2024-12-14 13:56] VITALS: BP 153/94; PULSE 79; RESP 17; TEMP 36.5; O2SAT 100; BMI 27.0
--- NOTE | 2024-12-14 14:38 | PC.NURSE ---
Pt offered and declined flu vaccine
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
--- NOTE | 2024-12-14 15:34 | P.HPPS_ITS ---
HPI Date of Service: 12/14/24 Chief Complaint: Crisis Sources of Information: patient interviewed, chart reviewed and crisis/core team assessment reviewed HPI Subjective Notes: Moore Warning and Conditional Voluntary Narrative: Patient is a 39-year-old female with history schizoaffective disorder, PTSD, opiate use disorder, cocaine use d/o and alcohol use disorder who presented to [facility] via ambulance due to being found in the middle of the road experiencing auditory and visual hallucinations secondary to medication noncompliance and substance use. Per crisis report, patient was brought to ER via ambulance due to being found healing in the middle of the road reporting she was seeing the devil and experiencing auditory and visual hallucinations. Upon arrival to ER, patient was agitated, screaming and responding to internal stimuli. Patient received IM medications multiple times. Patient kept repeating, I came here for water. I need to get off drugs. Away from people, from the and demons . Patient presented disheveled and malodorous. History of medication non compliance. History of multiple inpatient psychiatric hospitalizations. History of self- injurious behavior via cutting. Patient reports daily crack cocaine use. History of multiple substance abuse programs. Utox positive for cocaine and benzodiazepines. During admission assessment, patient presents alert and oriented x3. Calm and cooperative. Guarded. Soft spoken. Appears thought blocking at times. Patient reports feeling okay ; patient stated, I was just trying to praise God and people got upset. I think the cocaine was getting to me . Patient denies SI/HI/VH/AH. She did not appear to be responding to internal stimuli. Patient reports she has been noncompliant with her medications since her last inpatient admission, which she reports was over the summer. Patient reports she has been using a lot of cocaine . She reports she does not have outpatient psychiatric providers at this time and is not interested in referrals. Past Psychiatric History: Multiple inpatient psychiatric hospitalizations. History of substance abuse treatment programs. History of medication noncompliance. Medical Evaluation Reviewed: Yes [facility] Medical History (Updated 12/14/24 @ 16:20 by Yanira Mullins NP) Cocaine use disorder Opioid use disorder Generalized abdominal discomfort Medical clearance for psychiatric admission PTSD (post-traumatic stress disorder) Prediabetes Oligomenorrhea Routine medical exam Anxiety Pseudoseizures Bipolar 1 disorder, manic, moderate Family History: Bipolar Disorder Social History: . Homeless. 3 kids. Substance History: Utox positive for cocaine and benzodiazepines. Trauma History: yes Diagnostics Vital Signs (24Hr): Vital Signs - 24 hr 12/14/24 08:40 12/14/24 13:56 Temperature 97.7 F Pulse Rate 79 Respiratory Rate 12 17 Blood Pressure 153/94 H Pulse Oximetry 100 Oxygen Delivery Method Room Air BMI result Body Mass Index 27.0 Labs 12/13/24 13:10 12/13/24 13:10 Labs: Laboratory Results - last 48 hr 12/13/24 12/13/24 13:10 15:49 WBC 5.2 RBC 4.49 Hgb 11.7 L Hct 35.0 L MCV 78.0 L MCH 26.1 L MCHC 33.4 RDW 15.1 Plt Count 301 MPV 9.3 L Immature Gran % (Auto) 0.2 Neut % (Auto) 42.1 L Lymph % (Auto) 46.1 H [place] % (Auto) 9.6 Eos % (Auto) 1.0 Baso % (Auto) 1.0 Lymph # (Auto) 2.4 [place] # (Auto) 0.5 Eos # (Auto) 0.1 Baso # (Auto) 0.1 Abs Immat Gran (auto) 0.01 Absolute Neuts (auto) 2.2 Absolute Nucleated RBC 0.000 Nucleated RBC % (auto) 0.0 Sodium 140 Potassium 3.6 Chloride 104 Carbon Dioxide 25 Anion Gap 15 BUN 17 H Creatinine 0.61 Estim Creat Clear Calc 131.4 Estimated GFR > 60 Random Glucose 84 Calcium 9.4 D Total Bilirubin 0.6 Direct Bilirubin 0.2 AST 40 H ALT 21 Alkaline Phosphatase 67 Total Creatine Kinase 378 H Total Protein 7.4 Albumin 4.5 Lipase 20 Beta HCG, Quant < 2 Urine Color Yellow Urine Appearance Clear Urine pH 6.5 Ur Specific [place] <= 1.005 Urine Protein Negative Urine Glucose (UA) Negative Urine Ketones 15 Urine Blood Negative Urine Nitrite Negative Ur Leukocyte Esterase Negative Urine RBC 0-2 Urine WBC 0-5 Ur Squamous Epith Cells 0-2 Urine Bacteria None Seen Hyaline Casts 0-2 Urine Opiates Screen Not Detected Ur Buprenorphine Scrn Not Detected Ur Oxycodone Screen Not Detected Urine Methadone Screen Not Detected Urine Fentanyl Screen Not Detected Ur Barbiturates Screen Not Detected Ur Phencyclidine Scrn Not Detected Ur Amphetamines Screen Not Detected U Benzodiazepines Scrn POSITIVE H Urine Cocaine Screen POSITIVE H U Marijuana (THC) Screen Not Detected Meds/Allergies Meds Home Medications ?Medication ?Instructions ?Recorded ?Confirmed ?Type cetirizine 10 mg tablet 10 mg PO DAILY 12/14/2405/05 History clonidine HCl 0.1 mg tablet 0.1 mg PO BID PRN Anxiety 12/14/24 12/14/24 History haloperidol 2 mg tablet 2 mg PO BEDTIME 12/14/2405/05 History hydroxyzine HCl 25 mg tablet 25 mg PO QID PRN Anxiety 12/14/24 12/14/24 History olanzapine 5 mg tablet 5 mg PO Q4H PRN Agitation 12/14/24 History quetiapine 50 mg tablet 50 mg PO BEDTIME 12/14/24 History topiramate 100 mg tablet 100 mg PO BEDTIME 12/14/24 1 02/14/24 History trazodone 50 mg tablet 50 mg PO BEDTIME 12/14/24 History Allergies Allergies Allergy/AdvReac Type Severity Reaction Status Date / Time dog dander (DOG DANDER) Allergy Intermediate ITCHY EYES Verified 12/13/24 10:40 pollen extracts (POLLEN) Allergy Intermediate STUFFY, Verified 12/13/24 10:40 ITCHY EYES Pork/Porcine Containing Allergy Itching Verified 12/13/24 10:40 Products Mental Status Exam Mental Status Exam Patient Appearance: Appropriate Patient Orientation: Person, Place, Time and Situation Level of Consciousness: Awake and Alert Patient Behavior: Appropriate and Guarded Mood Description: Calm Affect Description: Blunted Ability to Follow Directions: Good Speech Pattern: Clear, Soft-Spoken and Delayed Hallucinations: None Thought Process: Slowed Thinking Thought Content: positive for Thought Blocking Assessment & Plan Assessment & Plan (1) Schizoaffective disorder, bipolar type: Status: Acute Code(s): F25.0 - Schizoaffective disorder, bipolar type (2) PTSD (post-traumatic stress disorder): Status: Acute Code(s): F43.10 - Post-traumatic stress disorder, unspecified (3) Opioid use disorder: Status: Acute Code(s): F11.90 - Opioid use, unspecified, uncomplicated (4) Cocaine use disorder: Status: Acute Code(s): F14.10 - Cocaine abuse, uncomplicated (5) Homelessness: Status: Acute Code(s): Z59.00 - Homelessness unspecified Plan Patient is a 39-year-old female with history schizoaffective disorder, PTSD, opiate use disorder, cocaine use d/o and alcohol use disorder who presented to [facility] via ambulance due to being found in the middle of the road experiencing auditory and visual hallucinations secondary to medication noncompliance and substance use. Plan: CV 15 minute safety checks continue home medications obtain collateral referral to outpatient psychiatric providers ? referral to substance abuse program encourage groups discharge planning Patient educated on: diagnosis and medication risk/benefits Reason for continued inpatient stay Substantial Risk for: med/psych decompensation Statement Statement: I have reviewed the history and physical and performed a pertinent examination on my patient. No changes have occurred unless specified. If the History and Physical was not performed prior to admission, the Hospitalist's service will be consulted for completing the admission physical. Time Spent With Patient Time: Total time managing care of this patient today _45___ minutes.
[2024-12-14 20:00] VITALS: BP 109/66; PULSE 90; RESP 16; TEMP 36.9; O2SAT 95
--- NOTE | 2024-12-15 05:48 | PC.NURSE ---
submitted 3 day notice
--- NOTE | 2024-12-15 08:33 | HO.PM.IMCN ---
History of Present Illness Data of Consult Service Date: 12/15/24 Primary Care Provider: Unknown Physician HPI Reason for consult: Medical consult Old female with past medical history of schizoaffective disorder, PTSD, anxiety, pseudoseizures bipolar disorder and polysubstance abuse found on the street with agitation, loudly praying to God and brought to the emergency room by EMS for evaluation. Her initial workup included a negative head CT, a white count of 5.2 was an unremarkable metabolic panel and a negative test. EKG with normal sinus rhythm QTC within normal limits. Urine without evidence of infection, U tox positive for benzos and cocaine. While in the ED she required chemical restraint due to severe agitation. She was evaluated by the care team and now admitted to inpatient for further care and treatment. On exam she denies any medical concerns. She is calm and cooperative and reports that she slept well last night and feels better. Review of Systems Review of Systems: Denies any shortness of breath, chest pain, headaches, dysuria, abdominal pain or discomfort, nausea, vomiting or diarrhea. Denies fever or chills. [facility] Medical History (Updated 12/14/24 @ 16:20 by Yanira Mullins NP) Cocaine use disorder Opioid use disorder Generalized abdominal discomfort Medical clearance for psychiatric admission PTSD (post-traumatic stress disorder) Prediabetes Oligomenorrhea Routine medical exam Anxiety Pseudoseizures Bipolar 1 disorder, manic, moderate Social History Household Members: None Household Members Other:: says has spouse but unhoused Housing: Homeless Do you presently have visiting nurse or other home services: No Alcohol intake: former Patient Tobacco Use Status: Former Tobacco user Tobacco use type: Cigarette Cigarette Packs Per Day: 1 Cigarettes Per Day: 20.0 Years Smoked: Many' e-Cigarette/Vaping Use: Former Use Second Hand Smoke Exposure: No Substance Use Type: Crack/Cocaine and Heroin Currently Displaying Signs/Symptoms of Drug Intoxication Withdrawal: No Advance Directives: No Advance Directives Information Provided: Yes Do you have thoughts of harming others: None Do you have a plan to hurt others: No Plan Recently lost weight without trying: Unsure How much weight loss: Not applicable Eating poorly because of decreased appetite: No Nutrition screen score: 2 Nutrition Risks: No Nutritional Risk Patient : No : No Poor oral hygiene: No service: No Sexual orientation: Straight/Heterosexual Meds Allergies Allergy/AdvReac Type Severity Reaction Status Date / Time dog dander (DOG DANDER) Allergy Intermediate ITCHY EYES Verified 12/13/24 10:40 pollen extracts (POLLEN) Allergy Intermediate STUFFY, Verified 12/13/24 10:40 ITCHY EYES Pork/Porcine Containing Allergy Itching Verified 12/13/24 10:40 Products Active Medications: Current Medications Al Hydroxide/Mg Hydroxide (Magnesium Hydrox/Alum Hydrox 30 Ml Oral.Susp) 30 ml PO Q6H PRN PRN Reason: Heartburn/Nausea Clonidine HCl (Clonidine Hcl 0.1 Mg Tablet) 0.1 mg PO BID PRN; Protocol PRN Reason: Anxiety Haloperidol (Haloperidol 1 Mg Tablet) 2 mg PO BEDTIME ENRIKE Last Admin: 12/14/24 20:17 Dose: 2 mg Hydroxyzine HCl (Hydroxyzine Hcl 25 Mg Tablet) 25 mg PO Q6H PRN PRN Reason: mild anxiety Magnesium Hydroxide (Milk Of Magnesia 30 Ml Oral.Susp) 30 ml PO DAILY PRN PRN Reason: Constipation Nicotine (Nicotine 21 Mg Patch.Td24) 21 mg TRANSDERMA DAILY ENRIKE Nicotine Polacrilex (Nicotine Polacrilex 2 Mg Gum) 4 mg BUCCAL Q2H PRN PRN Reason: Nicotine Cravings Olanzapine (Olanzapine 5 Mg Tablet) 5 mg PO Q4H PRN PRN Reason: Agitation Quetiapine Fumarate (Quetiapine Fumarate 50 Mg Tablet) 50 mg PO BEDTIME ENRIKE Last Admin: 12/14/24 20:17 Dose: 50 mg Topiramate (Topiramate 100 Mg Tablet) 100 mg PO BEDTIME ENRIKE Last Admin: 12/14/24 20:17 Dose: 100 mg Trazodone HCl (Trazodone Hcl 50 Mg Tablet) 50 mg PO BEDTIME MRX1 PRN PRN Reason: Insomnia Home Medications ?Medication ?Instructions ?Recorded ?Confirmed ?Last Taken ?Type cetirizine 10 mg tablet 10 mg PO DAILY 12/14/24 12/14/24 Unknown History clonidine HCl 0.1 mg tablet 0.1 mg PO BID PRN Anxiety 12/14/24 12/14/24 Unknown History haloperidol 2 mg tablet 2 mg PO BEDTIME 12/14/24 12/14/24 Unknown History hydroxyzine HCl 25 mg tablet 25 mg PO QID PRN Anxiety 12/14/24 12/14/24 Unknown History olanzapine 5 mg tablet 5 mg PO Q4H PRN Agitation 12/14/24 12/14/24 Unknown History quetiapine 50 mg tablet 50 mg PO BEDTIME 12/14/24 12/14/24 Unknown History topiramate 100 mg tablet 100 mg PO BEDTIME 12/14/24 12/14/24 Unknown History trazodone 50 mg tablet 50 mg PO BEDTIME 12/14/24 12/14/24 Unknown History Physical Exam Vital Signs and Narrative: Vital Signs: Last Vital Signs Temp 98.5 F 12/14/24 20:00 Pulse 90 12/14/24 20:00 Resp 16 12/14/24 20:00 BP 109/66 12/14/24 20:00 Pulse Ox 95 12/14/24 20:00 O2 Del Method Room Air 12/14/24 20:00 BMI result Body Mass Index 27.0 Alert and oriented X3, calm and cooperative. Answers questions. Neuro: CN II-X11 intact, no deficits, visual acuity intact EYES: PERRLA, EOM intact ENT: Hearing intact, MMM Cardiac: S1 S2 RRR, No ectopy Pulmonary: lungs clear to auscultation, No increased WOB. Abdominal: BS active in all 4 quadrants, no guarding or tenderness MSK: Strength 5/5 upper and lower extremities : Deferred Extremities: No edema in lower extremities Psych: Mood stable, Quiet and cooperative. Skin: Warm and dry, Intact Results Labs 12/13/24 13:10 12/13/24 13:10 Assessment and Plan (1) Delusions: Status: Acute Plan 39-year-old female with past medical history as listed below presented to ED with agitation and yazidism preoccupation. Now admitted to inpatient psych for further care and treatment. Schizoaffective disorder/PTSD/Anxiety/ipolar disorder/Polysubstance abuse Treatment per psychiatric team Pseudoseizures Denies any recent history of seizure activity Thank you for allowing me to participate in the care of this patient. Will follow with you, please notify medical provider with any changes in condition or concerns.
--- NOTE | 2024-12-15 12:09 | HO.PSYCHPN ---
Subjective Subjective Date of Service: 12/15/24 Reason For Visit: Crisis Subjective Notes: 3 Day Interim History: Active on unit. keeping to self. observed listening to music on unit headphones. Guarded. Patient reports feeling okay today; she reports she signed a 3 day notice because I don't want to be here . Patient reports she plans on going back to the streets when discharged. She reports sleeping well last night. denies SI/HI/VH/AH. 3 day notice up on 12/18/24. Medication Compliance: Yes Side effects from medications: No Attending Groups: No Mental Status Exam Mental Status Exam Narrative: Pt is alert and oriented; behavior is cooperative and calm, guarded; dressed in casual attire; mood is described as okay ; eye contact appropriate; Speech is normal rate, soft spoken and not pressured; thought process is organized; Thought content is on discharge; denies SI/HI/VH/AH. Diagnostics Vital Signs (24Hr): Vital Signs - 24 hr 12/14/24 13:56 12/14/24 20:00 Temperature 97.7 F 98.5 F Pulse Rate 79 90 Respiratory Rate 17 16 Blood Pressure 153/94 H 109/66 Pulse Oximetry 100 95 Oxygen Delivery Method Room Air Room Air BMI result Body Mass Index 27.0 Labs 12/13/24 13:10 12/13/24 13:10 Labs: Laboratory Results - last 48 hr 12/13/24 12/13/24 13:10 15:49 WBC 5.2 RBC 4.49 Hgb 11.7 L Hct 35.0 L MCV 78.0 L MCH 26.1 L MCHC 33.4 RDW 15.1 Plt Count 301 MPV 9.3 L Immature Gran % (Auto) 0.2 Neut % (Auto) 42.1 L Lymph % (Auto) 46.1 H [place] % (Auto) 9.6 Eos % (Auto) 1.0 Baso % (Auto) 1.0 Lymph # (Auto) 2.4 [place] # (Auto) 0.5 Eos # (Auto) 0.1 Baso # (Auto) 0.1 Abs Immat Gran (auto) 0.01 Absolute Neuts (auto) 2.2 Absolute Nucleated RBC 0.000 Nucleated RBC % (auto) 0.0 Sodium 140 Potassium 3.6 Chloride 104 Carbon Dioxide 25 Anion Gap 15 BUN 17 H Creatinine 0.61 Estim Creat Clear Calc 131.4 Estimated GFR > 60 Random Glucose 84 Calcium 9.4 D Total Bilirubin 0.6 Direct Bilirubin 0.2 AST 40 H ALT 21 Alkaline Phosphatase 67 Total Creatine Kinase 378 H Total Protein 7.4 Albumin 4.5 Lipase 20 Beta HCG, Quant < 2 Urine Color Yellow Urine Appearance Clear Urine pH 6.5 Ur Specific [place] <= 1.005 Urine Protein Negative Urine Glucose (UA) Negative Urine Ketones 15 Urine Blood Negative Urine Nitrite Negative Ur Leukocyte Esterase Negative Urine RBC 0-2 Urine WBC 0-5 Ur Squamous Epith Cells 0-2 Urine Bacteria None Seen Hyaline Casts 0-2 Urine Opiates Screen Not Detected Ur Buprenorphine Scrn Not Detected Ur Oxycodone Screen Not Detected Urine Methadone Screen Not Detected Urine Fentanyl Screen Not Detected Ur Barbiturates Screen Not Detected Ur Phencyclidine Scrn Not Detected Ur Amphetamines Screen Not Detected U Benzodiazepines Scrn POSITIVE H Urine Cocaine Screen POSITIVE H U Marijuana (THC) Screen Not Detected Medications Medications Current Medications Al Hydroxide/Mg Hydroxide (Magnesium Hydrox/Alum Hydrox 30 Ml Oral.Susp) 30 ml PO Q6H PRN PRN Reason: Heartburn/Nausea Clonidine HCl (Clonidine Hcl 0.1 Mg Tablet) 0.1 mg PO BID PRN; Protocol PRN Reason: Anxiety Haloperidol (Haloperidol 1 Mg Tablet) 2 mg PO BEDTIME [facility] Last Admin: 12/14/24 20:17 Dose: 2 mg Hydroxyzine HCl (Hydroxyzine Hcl 25 Mg Tablet) 25 mg PO Q6H PRN PRN Reason: mild anxiety Magnesium Hydroxide (Milk Of Magnesia 30 Ml Oral.Susp) 30 ml PO DAILY PRN PRN Reason: Constipation Nicotine (Nicotine 21 Mg Patch.Td24) 21 mg TRANSDERMA DAILY [facility] Last Admin: 12/15/24 08:38 Dose: Not Given Nicotine Polacrilex (Nicotine Polacrilex 2 Mg Gum) 4 mg BUCCAL Q2H PRN PRN Reason: Nicotine Cravings Olanzapine (Olanzapine 5 Mg Tablet) 5 mg PO Q4H PRN PRN Reason: Agitation Quetiapine Fumarate (Quetiapine Fumarate 50 Mg Tablet) 50 mg PO BEDTIME [facility] Last Admin: 12/14/24 20:17 Dose: 50 mg Topiramate (Topiramate 100 Mg Tablet) 100 mg PO BEDTIME [facility] Last Admin: 12/14/24 20:17 Dose: 100 mg Trazodone HCl (Trazodone Hcl 50 Mg Tablet) 50 mg PO BEDTIME MRX1 PRN PRN Reason: Insomnia Allergies Allergies Allergy/AdvReac Type Severity Reaction Status Date / Time dog dander (DOG DANDER) Allergy Intermediate ITCHY EYES Verified 12/13/24 10:40 pollen extracts (POLLEN) Allergy Intermediate STUFFY, Verified 12/13/24 10:40 ITCHY EYES Pork/Porcine Containing Allergy Itching Verified 12/13/24 10:40 Products Assessment & Plan Assessment & Plan (1) Schizoaffective disorder, bipolar type: Status: Acute Code(s): F25.0 - Schizoaffective disorder, bipolar type (2) PTSD (post-traumatic stress disorder): Status: Acute Code(s): F43.10 - Post-traumatic stress disorder, unspecified (3) Opioid use disorder: Status: Acute Code(s): F11.90 - Opioid use, unspecified, uncomplicated (4) Cocaine use disorder: Status: Acute Code(s): F14.10 - Cocaine abuse, uncomplicated (5) Homelessness: Status: Acute Code(s): Z59.00 - Homelessness unspecified Plan Patient is a 39-year-old female with history schizoaffective disorder, PTSD, opiate use disorder, cocaine use d/o and alcohol use disorder who presented to [facility] via ambulance due to being found in the middle of the road experiencing auditory and visual hallucinations secondary to medication noncompliance and substance use. Plan: CV 15 minute safety checks continue home medications obtain collateral referral to outpatient psychiatric providers ? referral to substance abuse program encourage groups discharge planning 12/15: Active on unit. keeping to self. observed listening to music on unit headphones. Guarded. Patient reports feeling okay today; she reports she signed a 3 day notice because I don't want to be here . Patient reports she plans on going back to the streets when discharged. She reports sleeping well last night. denies SI/HI/VH/AH. 3 day notice up on 12/18/24. Patient educated on: diagnosis and medication risk/benefits Reason for continued inpatient stay Substantial Risk for: med/psych decompensation Time Spent With Patient Time: Total time managing care of this patient today _20___ minutes.
[2024-12-15 20:00] VITALS: RESP 16
--- NOTE | 2024-12-15 21:26 | PC.NURSE ---
only took 1 mg of 2 mg dose of haldol
--- NOTE | 2024-12-16 12:02 | P.PNPSI_ITS ---
Subjective Subjective Date of Service: 12/16/24 Reason For Visit: Crisis Subjective Notes: 3 Day Interim History: Active on unit. observed pacing unit hallway. Patient reports feeling good today; Patient stated, I'm feeling better. I only took the 1mg of Haldol because I didn't feel like I needed 2mg . denies SI/HI/VH/AH. Patient reports she plan on staying clean but was unable to provide plan for maintaining sobriety. She does not want to go to a substance abuse program. 3 day notice up on 12/18/24. Medication Compliance: Yes Side effects from medications: No Attending Groups: No Mental Status Exam Mental Status Exam Narrative: Pt is alert and oriented; behavior is cooperative and calm; dressed in casual attire; mood is described as good ; eye contact appropriate; Speech is normal rate, soft spoken and not pressured; thought process is organized; Thought content is on discharge; denies SI/HI/VH/AH. Diagnostics Vital Signs (24Hr): Vital Signs - 24 hr 12/15/24 20:00 Respiratory Rate 16 BMI result Body Mass Index 27.0 Labs 12/13/24 13:10 12/13/24 13:10 Medications Medications Current Medications Al Hydroxide/Mg Hydroxide (Magnesium Hydrox/Alum Hydrox 30 Ml Oral.Susp) 30 ml PO Q6H PRN PRN Reason: Heartburn/Nausea Clonidine HCl (Clonidine Hcl 0.1 Mg Tablet) 0.1 mg PO BID PRN; Protocol PRN Reason: Anxiety Haloperidol (Haloperidol 1 Mg Tablet) 2 mg PO BEDTIME [facility] Last Admin: 12/15/24 21:26 Dose: 1 mg Hydroxyzine HCl (Hydroxyzine Hcl 25 Mg Tablet) 25 mg PO Q6H PRN PRN Reason: mild anxiety Magnesium Hydroxide (Milk Of Magnesia 30 Ml Oral.Susp) 30 ml PO DAILY PRN PRN Reason: Constipation Nicotine (Nicotine 21 Mg Patch.Td24) 21 mg TRANSDERMA DAILY [facility] Last Admin: 12/16/24 09:03 Dose: Not Given Nicotine Polacrilex (Nicotine Polacrilex 2 Mg Gum) 4 mg BUCCAL Q2H PRN PRN Reason: Nicotine Cravings Olanzapine (Olanzapine 5 Mg Tablet) 5 mg PO Q4H PRN PRN Reason: Agitation Quetiapine Fumarate (Quetiapine Fumarate 50 Mg Tablet) 50 mg PO BEDTIME [facility] Last Admin: 12/15/24 21:24 Dose: 50 mg Topiramate (Topiramate 100 Mg Tablet) 100 mg PO BEDTIME [facility] Last Admin: 12/15/24 21:24 Dose: 100 mg Trazodone HCl (Trazodone Hcl 50 Mg Tablet) 50 mg PO BEDTIME MRX1 PRN PRN Reason: Insomnia Allergies Allergies Allergy/AdvReac Type Severity Reaction Status Date / Time dog dander (DOG DANDER) Allergy Intermediate ITCHY EYES Verified 12/13/24 10:40 pollen extracts (POLLEN) Allergy Intermediate STUFFY, Verified 12/13/24 10:40 ITCHY EYES Pork/Porcine Containing Allergy Itching Verified 12/13/24 10:40 Products Assessment & Plan Assessment & Plan (1) Schizoaffective disorder, bipolar type: Status: Acute Code(s): F25.0 - Schizoaffective disorder, bipolar type (2) PTSD (post-traumatic stress disorder): Status: Acute Code(s): F43.10 - Post-traumatic stress disorder, unspecified (3) Opioid use disorder: Status: Acute Code(s): F11.90 - Opioid use, unspecified, uncomplicated (4) Cocaine use disorder: Status: Acute Code(s): F14.10 - Cocaine abuse, uncomplicated Plan Patient is a 39-year-old female with history schizoaffective disorder, PTSD, opiate use disorder, cocaine use d/o and alcohol use disorder who presented to [facility] via ambulance due to being found in the middle of the road experiencing auditory and visual hallucinations secondary to medication noncompliance and substance use. Plan: CV 15 minute safety checks continue home medications obtain collateral referral to outpatient psychiatric providers ? referral to substance abuse program encourage groups discharge planning 12/15: Active on unit. keeping to self. observed listening to music on unit headphones. Guarded. Patient reports feeling okay today; she reports she signed a 3 day notice because I don't want to be here . Patient reports she plans on going back to the streets when discharged. She reports sleeping well last night. denies SI/HI/VH/AH. 3 day notice up on 12/18/24. 12/16: Active on unit. observed pacing unit hallway. Patient reports feeling good today; Patient stated, I'm feeling better. I only took the 1mg of Haldol because I didn't feel like I needed 2mg . denies SI/HI/VH/AH. Patient reports she plan on staying clean but was unable to provide plan for maintaining sobriety. She does not want to go to a substance abuse program. 3 day notice up on 12/18/24. Patient educated on: diagnosis and medication risk/benefits Reason for continued inpatient stay Substantial Risk for: med/psych decompensation Time Spent With Patient Time: Total time managing care of this patient today _20___ minutes.
[2024-12-17 07:00] VITALS: BMI 27.3
[2024-12-17 08:28] LABS: Hemoglobin A1C 151.8240 umol/L; Total Hemoglobin (HGBA1C) 3546.3794 umol/L
[2024-12-17 08:40] LABS: Alanine Aminotransferase 24 U/L (0-31); Albumin Level 4.9 g/dL (3.5-5.0); Alkaline Phosphatase 71 U/L (39-117); Anion Gap 15 (12-20); Aspartate Amino Transferase 23 U/L (5-31); Blood Urea Nitrogen 10 mg/dL (9-16); Calcium 9.9 mg/dL (8.4-10.2); Carbon Dioxide 20 mmol/L (22-29); Chloride 108 mmol/L (96-108); Cholesterol 219 mg/dL (<200); Creatinine Clr Calc Pharmacy 111.8; Estimated Glomerular Filt Rate > 60; HDL Cholesterol 59 mg/dL (>40); Potassium 3.8 mmol/L (3.3-5.1); Sodium 139 mmol/L (135-145); Total Protein 8.2 g/dL (6.5-8.0); Triglycerides 70 mg/dL (<150)
[2024-12-17 09:23] VITALS: RESP 15
[2024-12-17 10:47] VITALS: BP 133/80
--- NOTE | 2024-12-17 11:02 | PM.PSYDC ---
DS: Providers Provider Date of Service: 12/17/24 Date of admission: 12/14/24 12:37 Date of discharge: 12/17/24 Primary care physician: Unknown Physician Admitting clinician: Yanira Mullins Attending physician on admission: Oren Baird Attending physician on discharge: Oren Baird Discharging clinician: Yanira Mullins DS: Diagnosis Discharge Diagnosis (1) Schizoaffective disorder, bipolar type: Status: Acute (2) PTSD (post-traumatic stress disorder): Status: Acute (3) Opioid use disorder: Status: Acute (4) Cocaine use disorder: Status: Acute DS: Medications Discharge Medications Home Medications: Previous Rx's ?Medication ?Instructions ?Recorded haloperidol 2 mg tablet 2 mg PO BEDTIME 30 days #30 tabs 12/17/24 quetiapine 50 mg tablet 50 mg PO BEDTIME 30 days #30 tabs 12/17/24 topiramate 100 mg tablet 100 mg PO BEDTIME 30 days #30 tabs 12/17/24 Mental Status Exam Mental Status Exam Narrative: Pt is alert and oriented; behavior is cooperative and calm; dressed in casual attire; mood is described as good ; eye contact appropriate; Speech is normal rate, soft spoken and not pressured; thought process is organized; Thought content is on discharge; denies SI/HI/VH/AH. Data Data Completed and Pending Completed studies during hospitalization [Text1]: 12/13/24 12/13/24 12/17/24 13:10 15:49 08:04 WBC 5.2 RBC 4.49 Hgb 11.7 L Hct 35.0 L MCV 78.0 L MCH 26.1 L MCHC 33.4 RDW 15.1 Plt Count 301 MPV 9.3 L Immature Gran % (Auto) 0.2 Neut % (Auto) 42.1 L Lymph % (Auto) 46.1 H [place] % (Auto) 9.6 Eos % (Auto) 1.0 Baso % (Auto) 1.0 Lymph # (Auto) 2.4 [place] # (Auto) 0.5 Eos # (Auto) 0.1 Baso # (Auto) 0.1 Abs Immat Gran (auto) 0.01 Absolute Neuts (auto) 2.2 Absolute Nucleated RBC 0.000 Nucleated RBC % (auto) 0.0 Sodium 140 139 Potassium 3.6 3.8 Chloride 104 108 Carbon Dioxide 25 20 L Anion Gap 15 15 BUN 17 H 10 Creatinine 0.61 0.72 Estim Creat Clear Calc 131.4 111.8 Estimated GFR > 60 > 60 Random Glucose 84 116 H Estimat Average Glucose 128 Hemoglobin A1c % 6.1 H Calcium 9.4 D 9.9 Total Bilirubin 0.6 0.4 Direct Bilirubin 0.2 AST 40 H 23 ALT 21 24 Alkaline Phosphatase 67 71 Total Creatine Kinase 378 H Total Protein 7.4 8.2 H Albumin 4.5 4.9 Triglycerides 70 Cholesterol 219 H LDL Cholesterol, Calc 146 H HDL Cholesterol 59 Lipase 20 Beta HCG, Quant < 2 Urine Color Yellow Urine Appearance Clear Urine pH 6.5 Ur Specific [place] <= 1.005 Urine Protein Negative Urine Glucose (UA) Negative Urine Ketones 15 Urine Blood Negative Urine Nitrite Negative Ur Leukocyte Esterase Negative Urine RBC 0-2 Urine WBC 0-5 Ur Squamous Epith Cells 0-2 Urine Bacteria None Seen Hyaline Casts 0-2 Urine Opiates Screen Not Detected Ur Buprenorphine Scrn Not Detected Ur Oxycodone Screen Not Detected Urine Methadone Screen Not Detected Urine Fentanyl Screen Not Detected Ur Barbiturates Screen Not Detected Ur Phencyclidine Scrn Not Detected Ur Amphetamines Screen Not Detected U Benzodiazepines Scrn POSITIVE H Urine Cocaine Screen POSITIVE H U Marijuana (THC) Screen Not Detected DS: Summary Hospital Course Hospital Course: Patient is a 39-year-old female with history schizoaffective disorder, PTSD, opiate use disorder, cocaine use d/o and alcohol use disorder who presented to [facility] via ambulance due to being found in the middle of the road experiencing auditory and visual hallucinations secondary to medication noncompliance and substance use. Per crisis report, patient was brought to ER via ambulance due to being found healing in the middle of the road reporting she was seeing the devil and experiencing auditory and visual hallucinations. Upon arrival to ER, patient was agitated, screaming and responding to internal stimuli. Patient received IM medications multiple times. Patient kept repeating, I came here for water. I need to get off drugs. Away from people, from the and demons . Patient presented disheveled and malodorous. History of medication non compliance. History of multiple inpatient psychiatric hospitalizations. History of self-injurious behavior via cutting. Patient reports daily crack cocaine use. History of multiple substance abuse programs. Utox positive for cocaine and benzodiazepines. During admission assessment, patient presents alert and oriented x3. Calm and cooperative. Guarded. Soft spoken. Appears thought blocking at times. Patient reports feeling okay ; patient stated, I was just trying to praise God and people got upset. I think the cocaine was getting to me . Patient denies SI/HI/VH/AH. She did not appear to be responding to internal stimuli. Patient reports she has been noncompliant with her medications since her last inpatient admission, which she reports was over the summer. Patient reports she has been using a lot of cocaine . She reports she does not have outpatient psychiatric providers at this time and is not interested in referrals. Plan: CV 15 minute safety checks continue home medications obtain collateral referral to outpatient psychiatric providers ? referral to substance abuse program encourage groups discharge planning Active on unit. keeping to self. observed listening to music on unit headphones. Guarded. Patient reports feeling okay today; she reports she signed a 3 day notice because I don't want to be here . Patient reports she plans on going back to the streets when discharged. She reports sleeping well last night. denies SI/HI/VH/AH. 3 day notice up on 12/18/24. Active on unit. observed pacing unit hallway. Patient reports feeling good today; Patient stated, I'm feeling better. I only took the 1mg of Haldol because I didn't feel like I needed 2mg . denies SI/HI/VH/AH. Patient reports she plan on staying clean but was unable to provide plan for maintaining sobriety. She does not want to go to a substance abuse program. 3 day notice up on 12/18/24. Patient reports feeling good ; she is requesting to be discharged today rather than tomorrow on her 3 day notice. Patient stated, I'm going to go back to my tent in [place]. I'm going to keep taking my meds. I'm going to focus on staying clean . denies SI/HI/VH/AH. Patient reports she plans on following up with outpatient providers. Status at Discharge Cognitive/behavioral status at discharge: Patient has insight and demonstrates good judgment in terms of wanting to pursue treatment. Patient has a safety plan that includes presenting to the closest ER or calling 911 if feeling unsafe. Functional status at discharge: independent ambulation Overall status at discharge: patient is back to baseline Time Spent with Patient Time attestation: Total time managing care of this patient today _20___ minutes. Time spent: Less than 30 minutes Discharge Plan Discharge Anticipated Discharge Date/Time: 12/17/24 11:30 Patient Disposition: Home, Self-Care Discharge Diagnosis: Schizoaffective d/o, PTSD, opioid use d/o, cocaine use d/o Referrals: Therapy & Psychiatry [Other] - 1 Week Referral Note: *You can present to the clinic above, Saturday through Saturday during the hours of 8am and 8pm, in order to obtain outpatient mental health providers. [facility] [Provider Group] - 1 Week Referral Note: 12-17-24 [facility] was added to patients chart. Please call [phone] to schedule a follow up appt within 7-10 days of discharge. No release or PCP on file. Discharge Medications: Continued haloperidol 2 mg Tablet 2 mg PO BEDTIME 30 Days Qty: 30 0RF topiramate 100 mg Tablet 100 mg PO BEDTIME 30 Days Qty: 30 0RF quetiapine 50 mg Tablet 50 mg PO BEDTIME 30 Days Qty: 30 0RF Discontinued clonidine HCl 0.1 mg Tablet 0.1 mg PO BID PRN (Reason: Anxiety) trazodone 50 mg Tablet 50 mg PO BEDTIME cetirizine 10 mg Tablet 10 mg PO DAILY olanzapine 5 mg Tablet 5 mg PO Q4H PRN (Reason: Agitation) hydroxyzine HCl 25 mg Tablet 25 mg PO QID PRN (Reason: Anxiety) Discharge Orders: Discharge Order (Routine); Ordered 12/17/24 Ordered By: Yanira Mullins Diet: Regular diet Activity on Discharge: As tolerated Stand Alone Forms: Patient Portal Discharge page, Community Support Print Language: Vietnamese Care Plan Goals: Maintain mood and safe behaviors Take medications as prescribed Continue to pursue sobriety Practice coping skills Continue with outpatient providers and reach out to them as needed Health Concerns: Mood stability and behaviors Sobriety Plan of Treatment: Follow up with your PCP, psychiatric provider and other outpatient providers regarding above concerns Take medications as prescribed Assessment: Patient has insight and demonstrates good judgment in terms of wanting to pursue treatment. Patient has a safety plan that includes presenting to the closest ER or calling 911 if feeling unsafe. Discharge Date/Time: 12/17/24 11:58
[2024-12-17] MEDS: Naloxone HCl Nasal TAKE HOME 4 MG SPRAY 8 MG NOSTRILALT (11:15)
== END 2024-12-17 11:58 | disposition home or self-care (01) | DRG 750 ==
LOC: HO.ED 17:11 → HO.PADLT16 12-14 12:39
PROVIDERS: Emergency Medicine Emergency Medical Services; Admitting Provider Registered Nurse; Emergency Provider Emergency Medicine; Responsible Provider Registered Nurse; Visit Provider Psychiatry & Neurology Psychiatry
DX: F25.0 Schizoaffective disorder, bipolar type (principal); R56.9 Unspecified convulsions; F14.10 Cocaine abuse, uncomplicated; F43.10 Post-traumatic stress disorder, unspecified; Z59.02 Unsheltered homelessness; Z79.899 Other long term (current) drug therapy
CPT/HCPCS: 36415; 70450; 80048; 80053; 80061; 80076; 80307; 81001; 82550; 83036; 83690; 84702; 85025; 93005; 99285; J1200; J1630; J2250; S9485

== ENCOUNTER → 2024-12-13 10:24 | Outpatient (BNV) | payer MEDICAID, SELFPAY | PROVIDERS: Admitting Provider Registered Nurse; Emergency Provider Emergency Medicine; Responsible Provider Registered Nurse; Visit Provider Internal Medicine Cardiovascular Disease | DX: I49.9 Cardiac arrhythmia, unspecified (principal) | CPT/HCPCS: 93010 ==

== ENCOUNTER → 2024-12-13 10:57 | Outpatient (BNV) | payer MEDICAID, SELFPAY | PROVIDERS: Emergency Provider Emergency Medicine Emergency Medical Services; Visit Provider Radiology Diagnostic Radiology | DX: R41.82 Altered mental status, unspecified (principal) | CPT/HCPCS: 70450 ==

== ENCOUNTER → 2024-12-14 12:37 | Outpatient (BNV) | payer OTHER, SELFPAY | PROVIDERS: Admitting Provider Registered Nurse; Emergency Provider Emergency Medicine; Responsible Provider Registered Nurse; Visit Provider Registered Nurse | DX: F25.0 Schizoaffective disorder, bipolar type (principal); F14.10 Cocaine abuse, uncomplicated; F11.90 Opioid use, unspecified, uncomplicated; F43.11 Post-traumatic stress disorder, acute; Z59.00 Homelessness unspecified | CPT/HCPCS: 99231; 99232 ==

== ENCOUNTER → 2024-12-14 12:37 | Outpatient (BNV) | payer MEDICAID, SELFPAY | PROVIDERS: Admitting Provider Registered Nurse; Emergency Provider Emergency Medicine; Responsible Provider Registered Nurse; Visit Provider Nurse Practitioner Family | DX: F22 Delusional disorders (principal) | CPT/HCPCS: 99221 ==

== ENCOUNTER 2024-12-17 15:36 | Inpatient (IN) | payer OTHER, SELFPAY ==
--- OUTSIDE RECORDS SUMMARY | 2024-01-07 11:00 | XMS_ITS ---
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 Discharge from??; Meds; LABS; Also 01/19 with [facility]??, VISIYT: OKQ; function; schizaffective; diabetes status; tobacco; SA Medications Medication SIG (Take, Route, Fr equency, Duration) Notes Start Date End Date Status ZYRTEC 10 mg 1 tab(s) orally once a day for 30 days 03/15/2021 Active MELATONIN 5 mg 1 tab(s) orally once a day (at bedtime) for 30 days 11/14/2020 Active DOXEPIN 10 mg 1 cap(s) orally once a day (at bedtime) for 30 days 11/14/2020 Active GABAPENTIN 400 mg 1 tab(s) orally 2 ti mes a day for 30 days Active ROBAXIN 500 mg 1 tab orally at nigh t as needed to relax muscles for 30 days Active Encounters Encounter Location Date Provider Diagnosis [facility] [address] [place], [place] [id number] 01/07/2024 Taye Bedolla Encounter for screening for COVID-19 Z11.52 Assessments Encounter Date Diagnosis (ICD Code) Assessment Notes Treatment Notes Treatment Clinical Notes Section Notes 01/07/2024 Encounter for screening for COVID-19 (ICD-10 - Z11.52) Covid screening is negative. Discussed in detail with patient how to practice social distancing by avoiding public spaces and crowds now, wearing a mask in public to keep nose and mouth covered, and washing hands frequently especially before eating and after using the bathroom. Return to clinic if you develop any symtpoms of concern to be rescreened or go to the emergency room if you are having concerning symptoms for COVID-19. 01/07/2024 Other Plan Of Treatment Treatment Notes Assessment Notes Encounter for screening for COVID-19 Cov id screening is negative. Discussed in detail with patient how to practice social distancing by avoiding public spaces and crowds now, wearing a mask in public to keep nose and mouth covered, and washing hands frequently especially before eating and after using the bathroom. Return to clinic if you develop any symtpoms of concern to be rescreened or go to the emergency room if you are having concerning symptoms for COVID-19. Progress Notes * Kushal MAYNARDaDOB:1985 ( 39 yo F)Acc No.[id number]:01/07/2024 Progress Notes Patient: Leah MÉNDEZ Provider: Talha Bedolla MD :1985 A ge:38 Y S ex:Female Date:01/07/2024 Address:homeless, [address] ([id number]) Mailing Address, [id number] Pcp:Leroy Du Subjective: * Chief Complaints: * 1 . Office: Transfer of care/discharge f/u. 2. Symptom screening by [facility] staff pre entrance to clinic. 3. 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 Discharge from??; Meds; LABS; Also 01/19 with [facility]??. 4. VISIYT: OKQ; function; schizaffective; diabetes status; tobacco; SA. * HPI: G eneral: Symptom Screen: - Fever in the last 1 week? Patient denies - New or worsening cough in the last 1 week? Patient denies. - Contact will known COVID exposure in last 5 days? Patient denies -new rash within last 3 weeks? Patient denies RN/MA: - Have you received the COVID-19 vaccine? - Have you received COVID-19 booster? - Have you been tested positive for COVID -19 in the last 7 days? If so where and why? 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 Discharge from??; Meds; LABS; Also 01/19 with [facility]??, VISIYT: OKQ; function; schizaffective; diabetes status; tobacco; SA. As of 4:30 had not arrived for 4:00. Has no phone. Note she also has appt with [facility] in [facility] in january. * ROS: N o acute C/P no acute SOB, No problem with urine, No heartburn or abdominal pain. Endorses being able to climb one fight of stairs without stopping due to SOB, Mood: stable, appetite: good, sleeping well. Denies new skin rashes. * Medical History: * Medications: T aking ROBAXIN 500 mg tablet 1 tab orally at night as needed to relax muscles , Taking GABAPENTIN 400 mg capsule 1 tab(s) orally 2 times a day , Taking DOXEPIN 10 mg capsule 1 cap(s) orally once a day (at bedtime) , Taking MELATONIN 5 mg tablet 1 tab(s) orally once a day (at bedtime) , Taking ZYRTEC 10 mg tablet 1 tab(s) orally once a day Objective: * Vitals: Assessment: * Assessment: 1. E ncounter for screening for COVID-19 - Z11.52 (Primary) Plan: * Treatment: * Images: Billing Information: * Visit Code: * Procedure Codes: Care Plan Details* * Electronic signature of Andchuyita Bedolla MD on 12/17/2024 at 06:37 PM EST Sign off status: Pending * Provider: Talha Bedolla MD Date: 03/08/2023 Generated for Natividad sheikh/Yonatan/Radha on: 02/17/2024 06:37 PM EST
--- OUTSIDE RECORDS SUMMARY | 2024-01-20 05:30 | XMS_ITS ---
Author Organization [facility] Address [address] [place] [id number] Care Team Providers Care Horologist Apprentice Name Role Phone Leroy Du Primary Care Provider Yee Shipley Unavailable [phone] REASON FOR VISIT Office: Transfer of care/discharge f/u Encounters Encounter Location Date Provider Diagnosis [address] [address] 01/20/2024 Yee Shipley Encounter for screening for COVID-19 Z11.52 Assessments Encounter Date Diagnosis (ICD Code) Assessment Notes Treatment Notes Treatment Clinical Notes Section Notes 01/20/2024 Encounter for screening for COVID-19 (ICD-10 - [...] you are having concerning symptoms for COVID-19. 01/20/2024 Other Plan Of Treatment Treatment Notes Assessment [...] concerning symptoms for COVID-19. Progress Notes * Bob MAYNARD:1985 ( 39 yo F)Acc No.[id number]:01/20/2024 Progress Notes Patient: Leah MÉNDEZ Provider: JULIANO Marshall :1985 A ge:38 Y S ex:Female Date:01/20/2024 Address:homeless, [address] ([id number]) Mailing Address, [facility] Pcp:Leroy Du Subjective: * Chief Complaints: * 1 . Office: Transfer of care/discharge f/u. * HPI: G eneral: Symptom Screen: - Fever in the last 1 week? Patient denies - New or worsening cough in the last 1 week? Patient denies. - Contact will known COVID exposure in last 5 days? Patient denies -new rash within last 3 weeks? Patient denies - Have you received the COVID-19 vaccine? - Have you received COVID-19 booster? - Have you been tested positive for COVID -19 in the last 7 days? If so where and why? RN/MA:. * ROS: N o acute C/P no acute SOB, No problem with urine, No heartburn or abdominal pain. Endorses being able to climb one fight of stairs without stopping due to SOB, Mood: stable, appetite: good, sleeping well. Denies new skin rashes. * Medical History: Objective: * Vitals: Assessment: * Assessment: 1. E ncounter for screening for COVID-19 - Z11.52 (Primary) Plan: * Treatment: * Images: Billing Information: * Visit Code: * Procedure Codes: Care Plan Details* * Electronic signature of Tunde Shipley on 12/17/2024 at 06:37 PM EST Sign off status: Pending * Provider: JULIANO Marshall Date: 03/22/2023 Generated for Natividda sheikh/Yonatan/Thomassmpepe on: 02/17/2024 06:37 PM EST
--- OUTSIDE RECORDS SUMMARY | 2024-10-24 16:00 | XMS_ITS ---
Author Organization [facility] Address [address] [place] [address] Care Team Providers Care Load Haul Dump Operator Name Role Phone Leroy Du Primary Care Provider Migration, Provider Unavailable Unavailable REASON FOR VISIT Multum To Medispan Conversion Encounter Medications Medication SIG (Take, Route, Frequency, Duration) Notes Start Date End Date Status ZyrTEC Allergy 10 MG 1 tab(s) orally once a day for 30 days 03/15/2021 Active Melatonin 5 MG 1 tab(s) orally once a day (at bedtime) for 30 days 11/14/2020 Active Doxepin HCl 10 MG 1 cap(s) orally once a day (at bedtime) for 30 days 11/14/2020 Active Robaxin 500 MG 1 TAB ORALLY AT NIGHT NEEDED TO RELAX MUSCLES for 30 DAYS *Please review and pick correct strength-formulation from Medispan options. If intended option is not shown, discontinue and re-order from Quick Search* Active Gabapentin 400 MG 1 tab(s) orally 2 times a day for 30 days Active Encounters Encounter Location Date Provider Diagnosis [address] [address] 10/24/2024 Provider Migration Plan Of Treatment No Information Progress Notes * Kim MAYNARDB:1985 ( 39 yo F)Acc No.[id number]:10/24/2024 Patient: Bereket EBENLeah Provider: :1985 A ge:39 Y S ex:Female Date:10/24/2024 Address:homeless, [address] ([phone]) Mailing Address, [facility] Pcp:ZZJessica ZZBossie Subjective: * Chief Complaints: * 1 . Multum To Medispan Conversion Encounter. * Medical History: * Medications: T aking Gabapentin 400 MG Capsule 1 tab(s) orally 2 times a day , Taking Robaxin 500 MG TABLET 1 TAB ORALLY AT NIGHT NEEDED TO RELAX MUSCLES , Notes to Pharmacist: *Please review and pick correct strength-formulation from Medispan options. If intended option is not shown, discontinue and re-order from Quick Search*, Taking Gabapentin 400 MG Capsule 1 tab(s) orally 2 times a day , Taking Doxepin HCl 10 MG Capsule 1 cap(s) orally once a day (at bedtime) , Taking Melatonin 5 MG Tablet 1 tab(s) orally once a day (at bedtime) , Taking ZyrTEC Allergy 10 MG Tablet 1 tab(s) orally once a day Objective: * Vitals: Assessment: Plan: * Treatment: * Images: Billing Information: * Visit Code: * Procedure Codes: * Electronic signature of Prov ider Migration on 12/17/2024 at 06:36 PM EST Sign off status: Pending * Provider: Date: 0 10/24/2024 Generated for Natviidad sheikh/Yonatan/Serenityitting on: 02/17/2024 06:36 PM EST
--- NOTE | 2024-12-17 15:47 | ED_ITS ---
HPI - General Adult General Chief complaint: Psychiatric Symptoms Stated complaint: Combative SCHIZOPHERNIA Time Seen by Provider: 12/17/24 15:47 Source: patient Mode of arrival: ambulatory Limitations: no limitations History of Present Illness ED Provider: [facility] narrative: Patient was discharged from psych unit here. [place] Patient appears to be psychotic. History of schizophrenia. Unable to provide any meaningful history at this time. Related Data Previous Rx's ?Medication ?Instructions ?Recorded quetiapine 50 mg tablet 50 mg PO BEDTIME 30 days #30 tabs 12/17/24 topiramate 100 mg tablet 100 mg PO BEDTIME 30 days #3 0 tabs 12/17/24 benztropine 0.5 mg tablet 0.5 mg PO BID 30 days #60 ta bs 12/23/24 haloperidol 10 mg tablet 10 mg PO BID 30 days #60 tab s 12/23/24 Allergies Allergy/AdvReac Type Severity Reaction Status Date / Time dog dander (DOG DANDER) Allergy Intermediate ITCHY EYES Verified 12/24/24 15:47 pollen extracts (POLLEN) Allergy Intermediate STUFFY, Verified 12/24/24 15:47 ITCHY EYES Pork/Porcine Containing Allergy Itching Verified 12/24/24 15:47 Products Review of Systems 2 Review of Systems: Review of system unable to be obtained [facility] Past Medical History [facility] Narrative: Schizophrenia, polysubstance abuse, bipolar disease Medical History Cocaine use disorder Opioid use disorder Generalized abdominal discomfort Medical clearance for psychiatric admission PTSD (post-traumatic stress disorder) Prediabetes Oligomenorrhea Routine medical exam Anxiety Pseudoseizures Bipolar 1 disorder, manic, moderate Social History Social History Household Members: None Household Members Other:: says has spouse but unhoused Housing: Homeless Do you presently have visiting nurse or other home services: No Unable to assess alcohol history related to: Refusing to respond Alcohol intake: current Alcohol intake frequency: 0-2 drinks per day Alcohol type: hard liquor Comment: 5 Patient Tobacco Use Status: Former Tobacco user Tobacco use type: Cigarette Cigarette Packs Per Day: 1 Cigarettes Per Day: 20.0 Years Smoked: Many' Smoked in Last 30 Days: No e-Cigarette/Vaping Use: Former Use Patient Interested in Nicotine Replacement: No Patient Given Instructions on How to Stop Smoking: No (declined) Second Hand Smoke Exposure: Yes (people smoke around her) Use of substances other than those prescribed or required for medical reasons: Yes Substance Use Type: Crack/Cocaine Last Used Substance: Just Prior to Admission Have you been hit, kicked, punched, or otherwise hurt by someone within the past year? If so, by whom?: No Do you feel safe in your current relationship?: Yes Is there a partner from a previous relationship who is making you feel unsafe now?: Yes (Yes baby's father, ex-) Are you made to feel afraid or neglected: No Advance Directives: No Advance Directives Information Provided: Yes Do you have a plan to hurt others: No Plan Recently lost weight without trying: No Eating poorly because of decreased appetite: No Nutrition Risks: No Nutritional Risk Patient : No : No Poor oral hygiene: No service: No Sexual orientation: Straight/Heterosexual Physical Exam ED Exam Exam: General: Appears to be psychotic Neurological: Awake and alert, no facial droop noted Skin: Warm and dry Psychiatric: Appear to be psychotic Exam is limited due to cooperation Vital Signs: Vital Signs - 24 hr 12/17/24 15:50 Temperature 97.5 F Pulse Rate 91 Respiratory Rate 16 Blood Pressure 103/68 Pulse Oximetry 98 Oxygen Delivery Method Room Air BMI result Body Mass Index 29.9 Course Reevaluation(s) Reevaluation #1: Time: 06:59 Date: 12/18/24 Provider: William Wood MD Patient in physician observation for psychiatric evaluation.? Patient was irritable and agitated overnight and continues to be agitated therefore I ordered and Ativan 2 mg p.o. q.4 hours prn anxiety and agitation. No other acute events reported overnight. No current complaints. VS stable.?Discharged from [facility] psych service yesterday. Seen by CARE team. Waiting for psychiatry consult to determine dispostion.. Will continue to monitor. Time: 18:14 Date: 12/18/24 Provider: William Wood MD Physician observation ended at 16:39.Patient to be admitted as inpatient to psychiatry./Patient to be placed at a rehab facility. Medications Administered Discontinued Medications Generic Name Dose Route Start Last Admin Trade Name Freq PRN Reason Stop Dose Admin Acetaminophen 650 mg 12/18/24 18:42 12/21/24 10:31 Acetaminophen 325 Mg Tablet PO 650 mg Q6H PRN Administration Headache/Pain, Scale 1-10 Benztropine Mesylate 0.5 mg 12/18/24 21:00 12/24/24 08:32 Benztropine Mesylate 0.5 Mg Tablet PO 0.5 mg BID ENRIKE Administration Diazepam 5 mg 12/18/24 21:16 12/18/24 21:32 Diazepam 5 Mg Tablet PO 12/18/24 21:17 5 mg ONCE ONE Administration Haloperidol 2 mg 12/17/24 21:00 12/17/24 21:14 Haloperidol 1 Mg Tablet PO 2 mg BEDTIME ENRIKE Administration Haloperidol 5 mg 12/18/24 21:00 12/22/24 08:25 Haloperidol 5 Mg Tablet PO 5 mg BID ENRIKE Administration Haloperidol 10 mg 12/22/24 21:00 12/24/24 08:31 Haloperidol 5 Mg Tablet PO 10 mg BID ENRIKE Administration Hydroxyzine HCl 25 mg 12/18/24 18:42 12/21/24 07:51 Hydroxyzine Hcl 25 Mg Tablet PO 25 mg Q6H PRN Administration mild anxiety Lorazepam 1 mg 12/17/24 22:08 12/17/24 23:48 Lorazepam 1 Mg Tablet PO 12/17/24 22:09 Not Given ONCE ONE Lorazepam 2 mg 12/18/24 07:01 12/18/24 07:41 Lorazepam 1 Mg Tablet PO 2 mg Q4H PRN Administration Anxiety, agitation Nicotine 21 mg 12/19/24 09:00 12/24/24 08:32 Nicotine 21 Mg Patch.Td24 TRANSDERMA Not Given DAILY ENRIKE Nicotine Polacrilex 4 mg 12/18/24 18:42 12/22/24 15:31 Nicotine Polacrilex 2 Mg Gum BUCCAL 4 mg Q2H PRN Administration Nicotine Cravings Olanzapine 10 mg 12/18/24 16:09 12/22/24 13:26 Olanzapine Odt 10 Mg Tab.Rapdis TRANSLINGU 10 mg Q6H PRN Administration agitation Olanzapine 5 mg 12/22/24 15:18 12/23/24 13:45 Olanzapine Odt 10 Mg Tab.Rapdis TRANSLINGU 5 mg Q6H PRN Administration agitation Quetiapine Fumarate 50 mg 12/17/24 21:00 12/23/24 20:01 Quetiapine Fumarate 50 Mg Tablet PO 50 mg BEDTIME ENRIKE Administration Topiramate 100 mg 12/17/24 21:00 12/23/24 20:00 Topiramate 100 Mg Tablet PO 100 mg BEDTIME ENRIKE Administration Trazodone HCl 50 mg 12/18/24 18:42 12/21/24 21:54 Trazodone Hcl 50 Mg Tablet PO 50 mg BEDTIME MRX1 PRN Administration Insomnia Medical Decision Making Medical Decision Making MDM Narrative: 39-year-old female presented hospital today for evaluation of attempting to hurt family at [employer]. Exam was difficult due to the patient's cooperation. We will plan to consult care team at this time. Patient was recently here. Patient is medically cleared. Does not appear to be having any medical condition that is causing her behavior. I suspect this is likely psychiatric in nature. Per care team they will like psychiatric consult. This will be placed. Patient will be signed out to oncoming provider pending psychiatric team evaluation. Differential Diagnosis Differential Diagnoses: The differential diagnosis associated with the presentation includes Aggression, homicide ideation, psychosis Lab Data 12/19/24 07:55 Labs: Lab Results 12/18/24 12/18/24 Range/Units 02:24 08:42 Urine Color Yellow Urine Appearance Clear Urine pH 6.5 (5.0-9.0) Ur Specific [place] <= 1.005 (1.005-1.025) Urine Protein Negative (Neg-Trace) mg/dL Urine Glucose (UA) Negative (Negative) mg/dL Urine Ketones Negative (Negative) mg/dL Urine Blood Negative (Negative) Urine Nitrite Negative (Negative) Ur Leukocyte Esterase Negative (Negative) Urine Test NEGATIVE (NEGATIVE) Ur N gonorrhoeae DNA (PCR) NOT DETECTED (Not Detect.) Urine Opiates Screen Not Detected (Not Detect) Ur Buprenorphine Scrn Not Detected (Not Detect) ng/mL Ur Oxycodone Screen Not Detected (Not Detect) ng/mL Urine Methadone Screen Not Detected (Not Detect) ng/mL Urine Fentanyl Screen Not Detected (Not Detect) Ur Barbiturates Screen Not Detected (Not Detect) Ur Phencyclidine Scrn Not Detected (Not Detect) Ur Amphetamines Screen Not Detected (Not Detect) U Benzodiazepines Scrn Not Detected (Not Detect) Urine Cocaine Screen Not Detected (Not Detect) U Marijuana (THC) Screen Not Detected (Not Detect) Ur Chlamydia DNA (PCR) NOT DETECTED (Not Detect.) Discharge Plan Discharge Clinical Impression: Aggressive behavior, Homicidal ideation Patient Disposition: Admitted As Inpatient Interventions: Admission Worksheet (ED) Last Done: 12/18/24 18:12 Discharge Date/Time: 12/18/24 18:39
[2024-12-17 15:50] VITALS: BP 103/68; PULSE 91; RESP 16; TEMP 36.4; O2SAT 98; BMI 29.9
--- NOTE | 2024-12-17 16:44 | PC.NURSE ---
Report given to RN. Being relocated to ED BH Pod, escorted by security.
--- OUTSIDE RECORDS SUMMARY | 2024-12-17 18:37 | XMS_ITS | Clinical Summary ---
Author Organization [employer] Address [address] [place] [address] Care Team Providers Care Traffic Line Painter Name Role Phone Preeti Holland Unavailable Unavailable Edwige Chang MD Primary Care Provider [phone] Juana Huggins Unavailable Unavailable Charli Saunders STUDIO ARTIST Unavailable [phone] Allergies Active Allergy Reactions Criticality Noted Date [...] by mouth at bedtime. 30 tablet 5 Active Additional Information Patient not taking.Reported on 07/13/2024 gabapentin (Neurontin) 300 MG capsuleIndicatio ns:Bipolar affective disorder, current episode manic with psychotic symptoms (CMS/HCC) (HCC) Take 1 capsule (300 mg) by mouth 3 times daily. 90 capsule Active Additional Information Patient not taking.Reported on 07/13/2024 LORazepam (Ativan) 2 MG tabletIndication s:Bipolar affective disorder, current episode manic with psychotic symptoms ([facility]) ([facility]) Take 1 tablet (2 mg) by mouth if needed in the morning, at noon, and at bedtime for anxiety for up to 14 days. 42 tablet 4 Active Additional Information Patient not taking.Reported on 07/13/2024 topiramate (Topamax) 25 MG tabletIndication s:Bipolar affective disorder, current episode manic with psychotic symptoms ([facility]) (HCC) Take 1 tablet (25 mg) by [...] 11/18/2023 Severe obesity (BMI 35.0-39.9) with comorbidity ([facility]) 11/18/2023 Tinea pedis 11/18/2023 Wheezing 11/18/2023 Post [...] 07/26/2022 Anxiety 04/10/2022 Cocaine abuse in remission ([facility]) 04/10/2022 Assessment & Plan (06/04/2022 9:15 AM EDT): Clean since Jan 13. 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 ([facility]) 04/10/2022 History of substance abuse ([facility]) 04/10/2022 Impaired fasting glucose 04/10/2022 Mixed hyperlipidemia 04/10/2022 Psychosis ([facility]) 04/10/2022 Schizoaffective disorder, bipolar type ([facility]) 04/10/2022 Housing instability after recent homelessness Assessment & Plan (06/04/2022 9:16 AM EDT): See HPI Bipolar affective disorder, current episode manic with psychotic symptoms ([facility]) 08/29/2021 Assessment & Plan (06/04/2022 9:14 AM EDT): Extremely poor insight and judgement. I cannot follow her train of thought. Recent hospitalization. Has 3 children, grown, no custody. Partner has 2 kids, no custody. Wants to have her BTL reversed. Makes statements like I got at [employer] . I tried to give 2 weeks notice, but they wanted it in writing, but I didn't have a pen. . Jumps from subject to subject. Increasing olanzapine. Type II or unspecified type diabetes mellitus with renal manifestations, uncontrolled(250.42) ([facility]) 04/11/2021 Schizoaffective disorder, depressive type ([facility]) 04/11/2021 Pre-diabetes 03/30/2021 Primary insomnia 03/30/2021 Mild intermittent asthma 08/31/2019 Opioid dependence in remission ([facility]) 020 Assessment & Plan (06/04/2022 9:15 AM EDT): Reports being clean since Jan 13. Recurrent major depressive disorder, in remissio n 08/31/2019 Tobacco dependence syndrome 08/31/2019 Resolved Problems Problem Noted Date Diagnosed Date Resolved Date Bipolar disorder, curr episo de mixed, severe, w/o psychotic features (CMS/HCC) 04/10/2022 023 Complex posttraumatic stress disorder 08/31/2019 06/04/2022 Encounters Date Type Department Care Team Description 12/14/2024 [facility] [address] [place] [address] Charli Saunders LCSW 12/10/2024 [facility] [address] [place] [address] Charli Saunders LCSW 12/09/2024 [facility] [address] [place] [address] Charli Saunders LCSW 12/09/2024 [facility] [address] [place] [address] Kameron Echols 12/08/2024 [facility] [address] [place] [address] Charli Saunders LCSW 12/07/2024 [facility] [address] [place] [address] Charli Saunders LCSW 12/02/2024 [facility] [address] [place] [address] Keri South 12/01/2024 [facility] [address] [place] [address] Charli Saunders LCSW 11/25/2024 [facility] [address] [place] [address] Keri South 11/25/2024 [facility] [address] [place] [address] Keri South 11/25/2024 [facility] [address] [place] [address] Charli Saunders LCSW 11/24/2024 [facility] [address] [phone] South, Keri 11/24/2024 [facility] [address] [phone] South, Keri 11/19/2024 [facility] [address] [place] [address] South, Keri 11/19/2024 [facility] [address] [place] [address] South, Keri 11/19/2024 [facility] [address] [place] [address] SouthPaola navasy 11/18/2024 [facility] [address] [place] [address] South, Keri 11/17/2024 [facility] [address] [place] [address] Charli Saunders LCSW 11/17/2024 [facility] [address] [place] [address] SouthKeri navas 11/12/2024 [facility] [address] [place] [address] South, Keri 11/11/2024 [facility] [address] [place] [address] Charli Saunders LCSW 11/04/2024 [facility] [address] [place] [address] SouthKeri navas 11/03/2024 [facility] [address] [place] [address] Charli Saunders LCSW 10/28/2024 [facility] [address] [place] [address] SouthKeri wilks 10/27/2024 [facility] [address] [place] [address] Charli Saunders LCSW 10/22/2024 [facility] [address] [place] [address] SouthKeri wilks 10/22/2024 [facility] [address] [place] [address] May Murphy, HORIZONTAL DRILL OPERATOR 10/21/2024 [facility] [address] [place] [address] May Murphy HORIZONTAL DRILL OPERATOR 10/20/[address] [phone] Edwige Chang MD PT-1 10/16/2024 [facility] [address] [place] [address] SouthKeri wilks 10/14/2024 [facility] [address] [place] [address] Charli Saunders LCSW 10/08/2024 [facility] [address] [place] [address] SouthKeri wilks 10/07/2024 [facility] [address] [place] [address] SouthKeri wilks 10/06/2024 [facility] [address] [place] [address] Charli Saunders LCSW 10/01/2024 [facility] [address] [place] [phone] SouthKeri wilks 09/30/2024 [facility] [address] [place], [place] [phone] Alla Willoughby 09/29/2024 [facility] [address] [place], [place] [phone] Charli Saunders LCSW 09/29/2024 [facility] [address] [place], [place] [phone] SouthKeri wilks 09/24/2024 [facility] [address] [place] [phone] SouthKeri wilks 09/24/2024 [facility] Department [address] [place] [phone] SouthKeri wilks 09/24/2024 [facility] [address] [place], [place] [phone] SouthKeri wilks 09/23/2024 [facility] [address] [place], [place] [id number] [phone] Charli Saunders LCSW 09/22/2024 [facility] [address] [place] [phone] Charli Saunders LCSW from Last 3 Months [...] HEPATITIS C ANTIBODY NON-REACT LAMINE NON-REACT LAMINE [facility] INDEX 0.06 <1.00 [facility] Comment: HCV antibody was non-reactive. There is no laboratory evidence of HCV infection. In most cases, no further action is required. However, if recent HCV exposure is suspected, a test for HCV RNA (test code 51143) is suggested. For additional information please refer to http://education.[employer]/faq/DNU30j2 (This link is being provided for informational/ educational purposes only.) 10/31/2021 10:5 0 AM EDT us Levar Herrera MD HISTORICAL/NON ORDERABLE LABS Final Result [facility] [address] * HIV 1/2 ANTIGEN/ANTIBODY,FOURTH GENERATION W/RFL (10/31/2021 10:50 AM EDT) HIV-1/2 ANTIGEN AND ANTIBODIES, 4TH GENERATION W/ REFLEX NON-REACT LAMINE NON-REACT LAMINE [facility] Comment: HIV-1 antigen and HIV-1/HIV-2 [...] purpose. For additional information please refer to http://education.[employer]/faq/ZXL195 (This link is being provided for informational/ educational purposes only.) The performance of this assay has not been clinically validated in patients less than 2 years old. 10/31/2021 10:5 0 AM EDT us Levar Herrera MD LAB BLOOD ORDERABLES Final Res ult [facility] [address] * (ABNORMAL) -Hemoglobin A1C w/Est Glucose (07/19/2021 2:11 PM EDT) Pathologist [facility] Hemoglobin A1c 6.2(H) (4.0-5.6) % [facility] Comment: MONITORING: In known diabetic patients, hemoglobin A1c targets should be discussed with health care provider. DIAGNOSTIC USE: The [place] Diabetes Association (ADA) and the World Health [...] Chang MD HISTORICAL/NON ORDERABLE LABS Final Result [facility] [address] from Last 3 Months or Most Recently Relevant to Health Maintenance Insurance * Guarantor: Leah Chi Account Type Relation to Patient Date of Phone Billing Address Personal/Family Self [address] [place] [phone] [employer] * Guarantor: Leah Chi Account Type Relation to Patient Date of Phone Billing Address Personal/Family Self [address] [place] [phone] [employer] * Guarantor: Leah Chi Account Type Relation to Patient Date of Phone Billing Address Personal/Family Self [address] [place] [phone] * Guarantor: Leah Chi Account Type Relation to Patient Date of Phone Billing Address Personal/Family Self [address] [place] [phone] Care Teams Traffic Line Painter Relationship Specialty Start Date End Date Edwige Chang MD [address] [place] [id number] PCP - General Family Medicine 01/17/22 Preeti Holland FNP Family Medicine 12/08/21 Juana Huggins Health Navigator Case Management 02/06/22 Charli Saunders LCSW Consumer Insights Specialist Behavioral Health 09/09/24
--- OUTSIDE RECORDS SUMMARY | 2024-12-17 18:37 | XMS_ITS ---
Author Organization [employer] Address [address] [place] [address] [address] [place] [address] Care Team Providers Care Infrastructure Design Engineer Name Role Phone Preeti Holland BILLING AUDITOR Unavailable Unavailable Edwige Chang MD Primary Care Provider [phone] Juana Huggins Unavailable Unavailable Charli Saunders LCSW Unavailable [phone] C3 [facility] Status:Enrolled (Active) Start date:09/09/2024 Enrollment date:10/27/2024 Case Team Name Relationship Phone Charli Saunders LCSW(Responsible Staff) Social Work er [phone] Continued Care and Services Coordination
--- OUTSIDE RECORDS SUMMARY | 2024-12-17 18:37 | XMS_ITS | Encounter Summary ---
Author Organization [employer] Address [address] [place] [address] [address] [place] [address] Care Team Providers Care Loss Prevention Officer Name Role Phone Amalia Preeti NURSING TEACHER Unavailable Unavailable Edwige Chang MD Primary Care Provider [phone] Juana Huggins Unavailable Unavailable Charli SaundersW Unavailable [phone] Keri South Unavailable Ren Lopez Unavailable Encounter Details Date Type Department Care Team (Late st Contact Info) Description 09/05/2023 Telephone [place] [address] [place] [address] Eladia Muhammad, RN Social History Tobacco Use [...] EDT Received a call from Ginny at [facility] pt has an upcoming appt. There [...] documented as of this encounter Care Teams Loss Prevention Officer Relationship Specialty Start Date End Date Edwige Chang MD [address] [place] [address] PCP - General Family Medicine 01/17/22 Preeti Holland FNP Family Medicine 12/08/21 Juana Huggins Health Navigator Case Management 02/06/22 Charli Saunders LCSW Avionics Systems Repairer Behavioral Health 09/09/24 Keri South Avionics Systems Repairer Behavioral Health 09/09/24 12/14/24 Ren Lopez Logging Operations Inspector 12/14/24 12/16/24 documented as of this encounter
--- OUTSIDE RECORDS SUMMARY | 2024-12-17 18:37 | XMS_ITS | Patient Health Record ---
Author Organization [facility] Address [address] [place] [address] Care Team Providers Care Motor Equipment Commanding Officer Name Role Phone Leroy Du Primary Care Provider [phone] Taye Bedolla Unavailable [phone] Yee Shipley Unavailable [phone] Migration, Provider Unavailable Unavailable Allergies No Known [...] Comme nts Tdap IM Intramuscular 02/25/2020 Administered [facility] [id number] Moderna Covid-19 Vaccine Administration - First Dose (Single Dose 100MCG/0.5ML 1ST) IM Intramuscular 03/14/2020 Administered Vaccinated through [facility] long-term by N Influenza Unknown 12/01/2010 Administered Moderna [...] Hyperglycemia due to type 2 diabetes mellitus (566585865290541) Type 2 diabetes mellitus with hyperglycemia (E11.65) Active confirmed Problem Opioid dependence (31525636) Opioid dependence, uncomplicated (F11.20) Active confirmed Problem Cocaine abuse wi th intoxication, unspecified (F14.129) Active confirmed Problem Tobacco user (857431382) Nicotine dependence, unspecified, uncomplicated (F17.200) Active confirmed Problem Schizoaffective disorder, depressive type (61544900) Schizoaffective disorder, depressive type (F25.1) Active confirmed Problem Anxiety disorder (244354922) Anxiety disorder, unspecified (F41.9) Active confirmed Problem Acute stress reaction (85802287) Acute stress reaction (F43.0) Active confirmed Problem Insomnia (028646443) Insomnia, unspecified (G47.00) Active confirmed Problem Mild intermittent asthma (000611059) Mild intermittent asthma, uncomplicated (J45.20) Active confirmed Problem Gastro-esophageal reflux disease without esophagitis (885608943) Gastro-esophageal reflux disease without esophagitis (K21.9) Active confirmed Problem Sciatica (85754281) Lumbago with sciatica, right side (M54.41) Active confirmed Problem Irregular menstruation (81176411) Irregular menstruation, unspecified (N92.6) Active confirmed Problem Nausea (190420152) Nausea (R11.0) Active confir med Problem Body mass index 30.00 to 34.99 (224123260659995) Body mass index [BMI] 34.0-34.9, adult (Z68.34) Active confirmed Problem Sheltered homelessness (478264420676397) Sheltered homelessness (Z59.01) Active confirmed Encounters Encounter Location Date Provider Diagnosis [facility] [address] [place] [address] 10/24/2024 Provider Migration [id number] [place] [address] 01/07/2024 Taye Bedolla Assessments Encounter Date Diagnosis [...] Insured Coverage Start Date Coverage End Date [place] C3 [address] [place], [place] [id number] Leah Maynard Self - patient is the insured 0 Medications Administered Medication Instructions Date of Administration Dosage Notes Ketorolac 01/17/2021 30 mg [facility] [id number] Medical (General) History Medical History History ICD [...] acute p haryngitis, dc to home 04/10/2020 [facility] Hosp x 6 months-mental b reakdown-hosp x 3 2015
--- OUTSIDE RECORDS SUMMARY | 2024-12-17 18:37 | XMS_ITS | Encounter Summary ---
Author Organization [facility] Address [address] [place] [address] [place], [place] [address] Phone Care Team Providers Care Pipeline Operator Name Role Phone Edwige Chang MD Primary Care Provider Pcp, Unknown Primary Care Provider Unavailabl e Edwige Chang MD Primary Care Provider [phone] Edwige Chang MD Unavailable [phone] Edwige Chang MD Primary Care Provider Encounter Details Date Type Department Care Team (Latest Contact Info) Description 01/30/2021 Transcribe Orders [address] [place] [address] Lori Goldberg, HEAD COUNSELOR [address] [place] [address] [email or web address] Opioid dependence with opioid-induced disorder (Primary Dx) [...] HEP B CORE IGM AB Negative Negative [facility] Comment:IgM anti-HBc not det ected. Does not exclude the possibility of exposure to or infection with HBV. Blood 01/30/2021 12:1 8 PM EST 01/30/2021 12:28 PM EST us Lori Goldberg HEAD COUNSELOR LAB BLOOD BKR ORDERABLE S Final Result [facility] [address] [place] [address] * Hepatitis C genotyping (01/30/2021 12:18 PM EST) Pathologist [facility] HCV GENOTYPE Test Not Performed. [facility] Comment: (NOTE) HCV Genotype, S was cancelled on 02/02/2021 at 10:17; Based on other test results additional testing not required. Genotyping not performed due to inability to generate sufficient target sequence for genotype analysis. Blood (Blood) 01/30/2021 12: 18 PM EST 01/30/2021 12:28 PM EST us Lori Goldberg HEAD COUNSELOR NON CULTURE MICROBIOLOG Y Final Result Performing Organization Address City/[facility]/ZIP Co de Phone Number [facility] [address] [place] [address] * Hepatitis B surface antigen (01/30/2021 12:18 PM EST) Pathologist [facility] HBV SURFACE ANTIGEN NON-REACTI VE NON-REACTI VE [facility] Blood 01/30/2021 12:1 8 PM EST 01/30/2021 12:28 PM EST us Lori Goldberg HEAD COUNSELOR LAB BLOOD BKR ORDERABLE S Final Result Performing Organization Address City/[facility]/ZIP Co de Phone Number [facility] [address] [place] [address] * (ABNORMAL) Comprehensive metabolic panel (01/30/2021 12:18 PM EST) SODIUM 136 133 - 146 mmol/L [facility] POTASSIUM 4.7 3.3 - 5.1 mmol/L [facility] CHLORIDE 101 96 - 108 mmol/L [facility] CO2 22 21 - 35 mmol/L [facility] BUN 17 6 - 19 mg/dL [facility] CREATININE 0.80 0.5 - 1.5 mg/dL [facility] GLUCOSE 120(H) 70 - 99 mg/dL [facility] ALBUMIN 4.7 3.9 - 4.8 g/dL [facility] TOTAL PROTEIN 7.8 6.5 - 8.0 g/dL [facility] CALCIUM 10.1 8.4 - 10.3 mg/dL [facility] ALKALINE PHOSPHATASE 94 39 - 117 U/L [facility] TOTAL BILIRUBIN 0.3 0.0 - 1.2 mg/dL [facility] AST 37 0 - 37 U/L [facility] ALT 32 0 - 40 U/L [facility] GLOBULIN 3.1 1 - 4.8 g/dL [facility] EGFR 98 >59 mL/min/1.7 3m2 [facility] Comment:Estimated glomerular filtration rate calculated using the CKD-EPI refit equation. ANION GAP 18 10 - 20 mmol/L [facility] Blood 01/30/2021 12:1 8 PM EST 01/30/2021 12:28 PM EST us Lori Goldberg HEAD COUNSELOR LAB BLOOD BKR ORDERABLE S Final Result Performing Organization Address City/State/[facility] Co de Phone Number [facility] [address] [place] [address] * Hepatitis B surface antibody (01/30/2021 12:18 PM EST) HBV SURFACE ANTIBODY Positive [facility] Comment: Unvaccinated: Negative Vaccinated: Positive Blood 01/30/2021 12:1 8 PM EST 01/30/2021 12:28 PM EST Lori Goldberg HEAD COUNSELOR LAB BLOOD BKR ORDERABLE S Final Result Performing Organization Address City/[facility]/ZIP Co de Phone Number [address] [address] * (ABNORMAL) HEPATITIS A ANTIBODY, TOTAL (01/30/2021 12:18 PM EST) [facility] HAV TOTAL AB Reactive(A ) NON-REACTI [facility] Blood 01/30/2021 12:1 8 PM EST 01/30/2021 12:28 PM EST Lori Goldberg HEAD COUNSELOR LAB BLOOD BKR ORDERABLE S Final Result Performing Organization Address [facility] Co de Phone Number [address] [address] * Hepatitis C viral load (PCR) (01/30/2021 12:18 PM EST) [facility] HCV RNA DETECT/QNT Undetected Undetected IU/mL [facility] Comment: (NOTE) Result in log IU/mL is Undetected. ADDITIONAL INFORMATION The quantification range of this assay is 15 to 100,000,000 IU/mL (1.18 log to 8.00 log IU/mL). Testing was performed using the wong HCV test ([employer] with the wong [id number] System. Blood (Blood) 01/30/2021 12: 18 PM EST 01/30/2021 12:28 PM EST Lori Goldberg HEAD COUNSELOR LAB BLOOD BKR ORDERABLE S Final Result Performing Organization Address [facility] Co de Phone Number [facility] MED/[facility] [address] [place] [address] * Hepatitis C antibody, qualitative (01/30/2021 12:18 PM EST) [facility] HCV NON-REACTIV E NON-REACTI [facility] Blood 01/30/2021 12:1 8 PM EST 01/30/2021 12:28 PM EST us Lori Goldberg HEAD COUNSELOR LAB BLOOD BKR ORDERABLE S Final Result Performing Organization Address [facility]/ZIP Co de Phone Number [address] [address] * Hepatitis B core antibody, total (01/30/2021 12:18 PM EST) HEP B CORE AB, TOT NON-REACTI VE NON-REACTI VE [facility] Blood 01/30/2021 12:1 8 PM EST 01/30/2021 12:28 PM EST us Lori Goldberg HEAD COUNSELOR LAB BLOOD BKR ORDERABLE S Final Result Performing Organization Address [facility]/ZIP Co de Phone Number [address] [address] * HIV-1/2 antigen/antibody (01/30/2021 12:18 PM EST) HIV-1/2 Antigen/Antibo dy NON-REACTI VE NON-REACTI VE [facility] Blood 01/30/2021 12:1 8 PM EST 01/30/2021 12:28 PM EST us Lori Goldberg HEAD COUNSELOR LAB BLOOD BKR ORDERABLE S Final Result Performing Organization Address [facility]/ZIP Co de Phone Number [address] [address] * (ABNORMAL) GGT (Gamma glutamyl transferase) (01/30/2021 12:18 PM EST) GGT 48(H) 7 - 33 U/L [facility] Blood 01/30/2021 12:1 8 PM EST 01/30/2021 12:28 PM EST us Lori Goldberg HEAD COUNSELOR LAB BLOOD BKR ORDERABLE S Final Result [facility] [address] [place] [address] * (ABNORMAL) CBC and differential (01/30/2021 12:18 PM EST) WBC 6.41 4.00 - 11.00 K/uL [facility] RBC 5.03 3.72 - 5.30 M/uL [facility] HGB 14.6 10.6 - 15.5 g/dL [facility] HCT 42.9 32.0 - 45.0 % [facility] PLT 324 140 - 430 K/uL [facility] MCV 85.3 78.0 - 97.0 fL [facility] MCH 29.0 25.0 - 33.0 pg [facility] MCHC 34.0 32.0 - 36.0 g/dL [facility] RDW 12.9 11.0 - 16.0 % [facility] MPV 10.5 8.4 - 12.8 fl [facility] NRBC 0.00 0 /100 WBCs [facility] ABSOLUTE NRBC 0.00 0 K/uL [facility] DIFF METHOD Auto [facility] NEUTS 54.2 43.0 - 75.0 % [facility] LYMPHS 34.5 18.2 - 47.4 % [facility] MONOS 5.5 4.00 - 11.00 % [facility] EOS 3.6 0.0 - 8.0 % [facility] BASOS 1.7 0.0 - 2.0 % [facility] Granulocytes, immature (%) 0.5 0.0 - 0.9 % [facility] ABSOLUTE NEUTS 3.48 1.80 - 7.70 K/uL [facility] ABSOLUTE LYMPHS 2.21 1.00 - 3.10 K/uL [facility] ABSOLUTE MONOS 0.35 0.20 - 0.80 K/uL [facility] ABSOLUTE EOS 0.23 0.00 - 0.80 K/uL [facility] ABSOLUTE BASOS 0.11(H) 0.00 - 0.09 K/uL [facility] Granulocytes, immature 0.03 0.00 - 0.05 K/uL [facility] Blood 01/30/2021 12:1 8 PM EST 01/30/2021 12:28 PM EST us Lori Goldberg HEAD COUNSELOR LAB BLOOD BKR ORDERABLE S Final Result Performing Organization Address City/State/[facility] Co de Phone Number [facility] [address] [place] [address] documented in this encounter Visit Diagnoses Diagnosis Opioid dependence with opioid-induced disorder- Primary documented in this encounter Additional Health Concerns Infection Onset Date Last Indicated Resolved Time CoV-Risk 03/31/2024 03/31/2024 04/11/2024 1:24 AM EST documented as of this encounter Care Teams Pipeline Operator Relationship Specialty Start Date End Date Edwige Chang MD [address] [place] [address] [email or web address] PCP - General Family Medicine 08/20/20 02/05/21 Pcp, Unknown PCP - General 02/06/21 02/06/21 Edwige Chang MD [address] [place] [address] [email or web address] PCP - General Family Medicine 02/07/21 09/16/23 Edwige Chang MD [address] [place] [address] PCP - General Family Medicine 09/17/23 Edwige Chang MD [address] [place] [address] [email or web address] Family Medicine 02/06/21 documented as of this encounter Additional Source Comments The information contained in this document represents components of the legal health record. It is not the complete legal health record.[facility]
--- OUTSIDE RECORDS SUMMARY | 2024-12-17 18:37 | XMS_ITS ---
Author Organization [employer] Address [address] [place] [address] 7 [place] [address] Care Team Providers Care Cable Repairer Name Role Phone Preeti Holland ADULT CARE PROVIDER Unavailable Unavailable Edwige Chang MD Primary Care Provider [phone] Juana Huggins Unavailable Unavailable Charli Saunders BUDDER Unavailable [phone] [facility] TOC Status:Closed (Closed) Start date:09/09/2024 Enrollment reason:ADT Feed End date:12/16/2024 Close reason:Cannot Reach Overview [facility]
--- OUTSIDE RECORDS SUMMARY | 2024-12-17 18:37 | XMS_ITS | Encounter Summary ---
Author Organization [employer] Address [address] [place] [address] 7[address] [place] [address] Care Team Providers Care Ripsawyer Name Role Phone AmaliaPreeti FLORENCE Unavailable Unavailable Edwige Chang MD Primary Care Provider [phone] Juana Huggins Unavailable Unavailable Charli Saunders LCSW Unavailable [phone] Keri South Unavailable Ren Lopez Unavailable Reason for Visit * Reason Comments Med Refill Encounter Details Date Type Department Care Team (Late st Contact Info) Description 02/21/2022 Refill Marc [facility] [address] [place] [address] Edwige Chang MD [address] [place] [address] Medication refill Social History Tobacco Use Types [...] prescriptions documented in this encounter Care Teams Ripsawyer Relationship Specialty Start Date End Date Edwige Chang MD [address] [place] [address] PCP - General Family Medicine 01/17/22 Preeti Holland FNP Family Medicine 12/08/21 Juana Huggins Health Navigator Case Management 02/06/22 Charli Saunders LCSW Orthopaedic Nurse Behavioral Health 09/09/24 Keri South Orthopaedic Nurse Behavioral Health 09/09/24 12/14/24 Ren Lopez Environmental Services Lead 12/14/24 12/16/24 documented as of this encounter
--- OUTSIDE RECORDS SUMMARY | 2024-12-17 18:37 | XMS_ITS | Encounter Summary ---
Author Organization [employer] Address [address] [place] [address] 7t [place] [address] Care Team Providers Care Meter Installer Name Role Phone Amalia Preeti INSTRUCTION ASSISTANT PRINCIPAL Unavailable Unavailable Edwige Chang MD Primary Care Provider Juana Huggins Unavailable Unavailable Charli SaundersW Unavailable [phone] Keri South Unavailable Ren Lopez Unavailable Encounter Details Date Type Department Care Team (Late st Contact Info) Description 04/06/2024 Orders Only [facility] [address] [place] [address] Edwige Chang MD [address] [place] [address] Social History Tobacco Use Types Packs/Day Years [...] documented as of this encounter Care Teams Meter Installer Relationship Specialty Start Date End Date Edwige Chang MD [address] [place] [address] PCP - General Family Medicine 01/17/22 Preeti Holland FNP Family Medicine 12/08/21 Juana Huggins Health Navigator Case Management 02/06/22 Charli Saunders LCSW Pbx Inspector Behavioral Health 09/09/24 Keri South Pbx Inspector Behavioral Health 09/09/24 12/14/24 Ren Lopez Aerial Photogrammetrist 12/14/24 12/16/24 documented as of this encounter
--- OUTSIDE RECORDS SUMMARY | 2024-12-17 18:37 | XMS_ITS | Clinical Summary ---
Author Organization [facility] Address [address] [place] [address] Phone Care Team Providers Care Product Support Consultant Name Role Phone Edwige Chang MD Primary Care Provider [phone] Allergies No known active allergies Medications fluticasone [...] LAB CHEMISTRY METHOD 12/24/2023 2:15 PM EST [facility] Potassium 3.9 3.5 - 5.5 mmol/L LAB CHEMISTRY METHOD 12/24/2023 2:15 PM EST [facility] Chloride 105 96 - 110 mmol/L LAB CHEMISTRY METHOD 12/24/2023 2:15 PM EST [facility] CO2 24 21 - 32 mmol/L LAB CHEMISTRY METHOD 12/24/2023 2:15 PM [facility] Anion Gap 9 3 - 11 LAB CHEMISTRY METHOD 12/24/2023 2:15 PM [facility] Glucose 111(H) 70 - 100 mg/dL LAB CHEMISTRY METHOD 12/24/2023 2:15 PM [facility] BUN 13 5 - 25 mg/dL LAB CHEMISTRY METHOD 12/24/2023 2:15 PM [facility] Creatinine 0.81 0.50 - 1.10 mg/dL LAB CHEMISTRY METHOD 12/24/2023 2:15 PM [facility] eGFR 95 >=60 mL/min/1. 73m2 LAB CHEMISTRY METHOD 12/24/2023 2:15 PM [facility] Comment:Calculation based on the Chronic Kidney Disease Epidemiology Collaboration (CKD-EPI) equation refit without adjustment for race. BUN/Creatinine Ratio 16.0 LAB CHEMISTRY METHOD 12/24/2023 2:15 PM [facility] Calcium 10.1 8.5 - 10.5 mg/dL LAB CHEMISTRY METHOD 12/24/2023 2:15 PM [facility] AST (SGOT) 20 10 - 42 unit/L LAB CHEMISTRY METHOD 12/24/2023 2:15 PM [facility] ALT (SGPT) 25 10 - 60 unit/L LAB CHEMISTRY METHOD 12/24/2023 2:15 PM [facility] Alkaline Phosphatase 79 42 - 121 unit/L LAB CHEMISTRY METHOD 12/24/2023 2:15 PM [facility] Total Protein 7.8 6.0 - 8.0 g/dL LAB CHEMISTRY METHOD 12/24/2023 2:15 PM [facility] Albumin 4.2 3.2 - 5.0 g/dL LAB CHEMISTRY METHOD 12/24/2023 2:15 PM EST [facility] Total Bilirubin 0.4 0.0 - 1.4 mg/dL LAB CHEMISTRY METHOD 12/24/2023 2:15 PM EST [facility] Blood Venous blood specimen / Unknown Venipuncture / Unknown 12/24/2023 1:21 PM EST 12/24/2023 1:43 PM EST us Francis Cheung DO LAB BLOOD ORDERABLES Final Result [facility] [address] [place] [address], from Last 3 Months or Most Recently Relevant to Health Maintenance Insurance MEDICAID - [place] Care Teams Product Support Consultant Relationship Specialty Start Date End Date Edwige Chang MD [address] [place] [id number] PCP - General Family Medicine 12/24/23
--- OUTSIDE RECORDS SUMMARY | 2024-12-17 18:37 | XMS_ITS | Encounter Summary ---
Author Organization [employer] [facility] Address [address] [facility] 7t [place] [address] Care Team Providers Care Suction Dredge Dumping Supervisor Name Role Phone AmaliaAdiPreetistephanie HENRIQUEZ Unavailable Unavailable Edwige Chang MD Primary Care Provider [phone] Juana Huggins Unavailable Unavailable Charli Saunders LCSW Unavailable [phone] Keri [place] Unavailable Ren Lopez Unavailable Encounter Details Date Type Department Care Team (Late st Contact Info) Description 12/14/2024 Patient Outreach [facility] (C3) Department [address] [facility] [address] [place] [address] Charli Saunders LCSW Social History [...] Progress Notes * Charli Saunders LCSW - 12/14/2024 11:59 PM EST 3rd outreach attempt [phone] unsuccessful; TW LVM requesting info be passed along to phyllis mccray documented in this encounter Plan of Treatment Not on file documented as of this encounter Visit Diagnoses Not on filedocumented in this encounter Additional Health Concerns Assessment Noted Time PHQ-9 Depression Total Score: 16 024 10:34 AM EDT documented as of this encounter Care Teams Suction Dredge Dumping Supervisor Relationship Specialty Start Date End Date Edwige Chang MD [address] [place] [address] PCP - General Family Medicine 01/17/22 Preeti Holland FNP Family Medicine 12/08/21 Juana Huggins Health Navigator Case Management 02/06/22 Charli Saunders LCSW Interactive Digital Media Specialist Behavioral Health 09/09/24 Keri South Interactive Digital Media Specialist Behavioral Health 09/09/24 12/14/24 Ren Lopez Saddle Stitcher 12/14/24 12/16/24 documented as of this encounter
--- OUTSIDE RECORDS SUMMARY | 2024-12-17 18:37 | XMS_ITS | Encounter Summary ---
Author Organization [employer] Address [address] [place] [address] 7[address] [place] [address] Care Team Providers Care Fabrication Manager Name Role Phone Amalia Preeti HUMAN RESOURCE ADVISER Unavailable Unavailable Edwige Chang MD Primary Care Provider Juana Huggins Unavailable Unavailable Charli SaundersW Unavailable [phone] Keri [place] Unavailable Ren Lopez Unavailable Encounter Details Date Type Department Care Team (Late st Contact Info) Description 05/04/2024 Orders Only [facility] [address] [place] [address] Edwige Chang MD [address] [place] [address] Social History Tobacco Use Types Packs/Day Years [...] documented as of this encounter Care Teams Fabrication Manager Relationship Specialty Start Date End Date Edwige Chang MD [address] [place] [address] PCP - General Family Medicine 01/17/22 Preeti Holland FNP Family Medicine 12/08/21 Juana Huggins Health Navigator Case Management 02/06/22 Charli Saunders LCSW Grades 9 Through 12 Teacher Behavioral Health 09/09/24 Keri South Grades 9 Through 12 Teacher Behavioral Health 09/09/24 12/14/24 Ren Lopez Intake Man 12/14/24 12/16/24 documented as of this encounter
--- OUTSIDE RECORDS SUMMARY | 2024-12-17 18:37 | XMS_ITS | Clinical Summary ---
Author Organization [facility] Address [address] [facility] [address] [place] [address] Phone Care Team Providers Care Ham Pumper Name Role Phone Edwige Chang MD Unavailable Edwige Chang MD Primary Care Provider [phone] Allergies Active Allergy Reactions Criticality Noted Date [...] - 10/22/2024 9:17 PM EDT Hospital Encounter [facility] Emergency Department [facility] [place] [address] Liu Cutler MD, MPH Breanna Hogan MD [...] HC IADNA HEPATITIS C QUANT & REVERSE BRAKE HOLDER Routine 02/28/2024 9:40 AM EST from Last 3 Months or Most Recently Relevant to Health Maintenance Results * (ABNORMAL) POCT Glucose (10/22/2024 6:43 PM EDT) [facility] Glucose, POCT 121(H) 70 - 100 mg/dL [facility] 10/22/2024 6:43 PM EDT 10/22/2024 6:49 PM EDT us Liu Cutler MD, MPH POINT OF CARE TEST [facility] Final Result Performing Organization Address City/[facility]/ZIP Co de Phone Number [address] [address] * Lab Add On: CK (10/22/2024 10:00 AM EDT) [facility] TEST REQUESTED CK [facility] Comments (Chemistry) ADD ON COMPLETE. [facility] 10/22/2024 10:0 0 AM EDT 10/22/2024 10:06 AM EDT us Trip Mo MD LAB BLOOD ORDERABLES Final Result Performing Organization Address City/[facility]/ZIP Co de Phone Number [address] [address] * ECG 12-LEAD (10/22/2024 9:56 AM EDT) Ventricular Rate EKG/MIN 73 BPM [facility] Atrial Rate 73 BPM [facility] MO Interval 142 ms [facility] QRS Duration 80 ms [facility] QT Interval 394 ms [facility] QTC Interval 434 ms [facility] P [place] 66 degrees [facility] R Wave [place] 63 degrees [facility] T Wave [place] 51 degrees [facility] 10/22/2024 9:56 AM EDT [...] Cyst vs fluid collection around the scar [id number] x 6 x 6 mm. Endometrium: Normal. [...] ACID (MMOL/L) 1.0 0.5 - 2.0 mmol/L [facility] Blood 10/21/2024 7:45 PM EDT 10/21/2024 10:48 PM EDT Shree Plaza PA-C, MPH LAB BLOOD BKR ORDERAB LES Final Result [facility] [address] [place] [address] * LFTs (hepatic panel) (10/21/2024 6:46 PM EDT) ALBUMIN 4.0 3.5 - 5.2 g/dL [facility] TOTAL BILIRUBIN 0.2 0.0 - 1.0 mg/dL [facility] DIRECT BILIRUBIN 0.1 mg/dL [facility] PHOSPHATASE 68 40 - 130 U/L [facility] AST 22 10 - 50 U/L [facility] ALT 15 10 - 50 U/L [facility] TOTAL PROTEIN 7.0 6.0 - 8.0 g/dL [facility] GLOBULIN 3.0 2.2 - 4.2 g/dL [facility] Blood 10/21/2024 6:46 PM EDT 10/21/2024 10:48 PM EDT us Shree Plaza PA-C, MPH LAB BLOOD BKR ORDERAB LES Final Result [place] [address] [place] [address] * (ABNORMAL) CBC and differential (10/21/2024 6:46 PM EDT) WBC 4.13 4.00 - 11.00 K/uL [facility] RBC 4.50 4.00 - 5.20 M/uL [facility] HGB 11.4(L) 12.0 - 16.0 g/dL [facility] HCT 35.6(L) 36.0 - 46.0 % [facility] PLT 266 150 - 450 K/uL [facility] MCV 79.1(L) 80.0 - 100.0 fL [facility] MCH 25.3(L) 27.0 - 31.0 pg [facility] MCHC 32.0 32.0 - 36.0 g/dL [facility] RDW 15.6(H) 11.5 - 14.5 % [facility] MPV 10.1 8.4 - 12.0 fL [facility] NRBC 0.00 0.00 /100 WBCs [facility] ABSOLUTE NRBC 0.00 0.00 K/uL [facility] DIFF METHOD Auto [facility] NEUTS 31.6(L) 48.0 - 76.0 % [facility] LYMPHS 53.0(H) 18.0 - 41.0 % [facility] MONOS 9.9 4.0 - 11.0 % [facility] EOS 3.6 0.0 - 5.0 % [facility] BASOS 1.7(H) 0.0 - 1.5 % [facility] Granulocytes, immature (%) 0.2 0.0 - 0.9 % [facility] ABSOLUTE NEUTS 1.30(L) 1.92 - 7.60 K/uL [facility] ABSOLUTE LYMPHS 2.19 0.72 - 4.10 K/uL [facility] ABSOLUTE MONOS 0.41 0.16 - 1.10 K/uL [facility] ABSOLUTE EOS 0.15 0.00 - 0.50 K/uL [facility] ABSOLUTE BASOS 0.07 0.00 - 0.15 K/uL [facility] Granulocytes, immature 0.01 0.00 - 0.09 K/uL [facility] Blood 10/21/2024 6:46 PM EDT 10/21/2024 10:48 PM EDT us Shree Plaza PA-C, MPH LAB BLOOD BKR ORDERAB LES Final Result Performing Organization Address [facility]/ZIP Co de Phone Number [address] [address] * HCG (Quantitative, Blood) (10/21/2024 6:46 PM EDT) HCG (Quantitative) <2 IU/L [facility] Comment: <3 IU/L=Negative, 3-8 IU/L may indicate early (repeat in 48hrs), >8 IU/L=Positive. HCG REFERENCE RANGE: NON: < OR = 2 IU/L : 3 - 60,000 IU/L Blood 10/21/2024 6:46 PM EDT 10/21/2024 10:48 PM EDT us Shree Plaza PA-C MPH LAB BLOOD BKR ORDERAB LES Final Result Performing Organization Address [facility] Co de Phone Number [address] [address] * Magnesium (10/21/2024 6:46 PM EDT) MAGNESIUM 1.7 1.7 - 2.6 mg/dL [facility] Blood 10/21/2024 6:46 PM EDT 10/21/2024 10:48 PM EDT us Shree Plaza PA-C MPH LAB BLOOD BKR ORDERAB LES Final Result Performing Organization Address City/[facility]/ZIP Co de Phone Number [address] [address] * Lipase (10/21/2024 6:46 PM EDT) LIPASE 40 13 - 60 U/L [facility] Blood 10/21/2024 6:46 PM EDT 10/21/2024 10:48 PM EDT us Shree Plaza PA-C, MPH LAB BLOOD BKR ORDERAB LES Final Result Performing Organization Address [facility]/[place] [address] * (ABNORMAL) CPK (creatine kinase) (10/21/2024 6:46 PM EDT) CREATINE KINASE 43(L) 50 - 185 U/L [facility] 10/21/2024 6:46 PM EDT 10/21/2024 10:48 PM EDT us Shree Plaza PA-C MPH LAB BLOOD BKR ORDERAB LES Final Result Performing Organization Address [facility] [place] [address] * (ABNORMAL) Basic metabolic panel (10/21/2024 6:46 PM EDT) SODIUM 137 136 - 145 mmol/L [facility] CHLORIDE 104 98 - 107 mmol/L [facility] POTASSIUM 3.7 3.4 - 5.0 mmol/L [facility] CO2 21(L) 22 - 31 mmol/L [facility] BUN 12 6 - 23 mg/dL [facility] CREATININE 0.60 0.50 - 1.20 mg/dL [facility] GLUCOSE 107 70 - 115 mg/dL [facility] Comment:Note: ADA guidelines consider any fasting glucose above 100 mg/dL as pre-diabetic. CALCIUM 9.6 8.6 - 10.7 mg/dL [facility] EGFR 116 >60 mL/min/1.7 3m2 [facility] Comment:Estimated glomerular filtration rate calculated using the CKD-EPI refit equation. ANION GAP 12 3 - 15 mmol/L [facility] Blood 10/21/2024 6:46 PM EDT 10/21/2024 10:48 PM EDT Shree Plaza PA-C, MPH LAB BLOOD BKR ORDERAB LES Final Result Performing Organization Address [facility]/ZIP Co de Phone Number [facility] [address] [place] [address] * Hepatitis C RNA (02/28/2024 9:40 AM EST) [facility] HCV RNA Detect/Quant Undetected Undetected IU/mL [facility] Comment: (NOTE) Result in log IU/mL is Undetected. Genotype testing was not performed due to HCV viral load below 500 IU/mL. ADDITIONAL INFORMATION The quantification range of this assay is 15 to 100,000,000 IU/mL (1.18 log to 8.00 log IU/mL). Testing was performed using the wong HCV test ([employer] Blood 02/28/2024 9:40 AM EST 02/28/2024 10:13 AM EST us Magdy Burnette [facility]- LAB BLOOD ORDERABLES Carole l Result Performing Organization Address [facility] Co de Phone Number [facility] [address] [place] [address] from Last 3 Months or Most Recently Relevant to Health [place] [address] [facility] C3 ACO C3 [address]CO [address] C[address]CO [address] C[address] [facility] [address] [place] [id number] [address] C[address] [place] [place] [address] C3 [employer] [address] [place] [address] [place] [address] [place] [address] [place] [address] [facility] [place] [address] ACO ACO Advance Directives For more information, please contact: [phone] (9AM - 5PM [facility]ie/[facility], Saturday-Saturday) * Full Code (Latest Code Status on File) Date Activated Date Inactivated Comments 03/30/2024 12:31 PM Question Answer Comments Code Status Confirmed With: Patient * Full Code Date Activated Date Inactivated Comments 08/29/2021 11:14 AM 03/30/2024 12:31 PM Question Answer Comments Code Status Confirmed With: Patient Care Teams Ham Pumper Relationship Specialty Start Date End Date Edwige Chang MD [address] [place] [address] [email or web address] PCP - General Family Medicine 09/17/23 Edwige Chang MD [address] [place] [address] [email or web address] Family Medicine 02/06/21 Additional Source Comments The information contained in this document represents components of the legal health record. It is not the complete legal health record.[facility]
--- OUTSIDE RECORDS SUMMARY | 2024-12-17 18:37 | XMS_ITS | Encounter Summary ---
Author Organization [employer] Address [address] [place] [address] [address] [place] [address] Care Team Providers Care Batch And Furnace Manager Name Role Phone Preeti Holland Primary Care Provider Unavailab Preeti Alvarado Unavailable Unavailable Edwige Chang MD Primary Care Provider [phone] Juana Huggins Unavailable Unavailable Charli SaundersW Unavailable [phone] Keri [place] Unavailable Ren Lopez Unavailable Encounter [...] on filedocumented in this encounter Care Teams Batch And Furnace Manager Relationship Specialty Start Date End Date Preeti Holland FNP PCP - General Family Medicine 12/08/21 01/16/22 Edwige Chang MD [address] [place] [address] PCP - General Family Medicine 01/17/22 Preeti Holland FNP Family Medicine 12/08/21 Juana Huggins Health Navigator Case Management 02/06/22 Charli Saunders LCSW Explosion Welder Behavioral Health 09/09/24 Keri South Explosion Welder Behavioral Health 09/09/24 12/14/24 Ren Lopez Wrinkle Chaser 12/14/24 12/16/24 documented as of this encounter
--- OUTSIDE RECORDS SUMMARY | 2024-12-17 18:37 | XMS_ITS | Encounter Summary ---
Author Organization [employer] Address [address] [place] [address] 7 [place] [address] Care Team Providers Care School Traffic Supervisor Name Role Phone AmaliaPreeti PATTERN FINISHER Unavailable Unavailable Edwige Chang MD Primary Care Provider [phone] Juana Huggins Unavailable Unavailable Charli Saunders COMPOTYPE OPERATOR Unavailable [phone] Keri South Unavailable Ren Lopez Unavailable Reason for Visit * Reason Onset Date Comments PT-1 10/20/2024 Encounter Details Date Type Department Care Team (Late st Contact Info) Description 10/20/2024 Telephone [facility] MEDICAL [address] [place], [place] [id number] Edwige Chang MD [address] [place] [address] PT-1 Social History Tobacco Use Types Packs/Day [...] encounter Miscellaneous Notes * Telephone Encounter - Kuldeepbrad Kenna - 10/20/2024 3:41 PM EDT PT-1 request Via Mail Control # [id number] Patient Address: [address] [place] [address] Clinical Material Handler: [facility] Adult dental [address] [facility] [address] Expiration: 11/10/24 documented in this encounter Plan of Treatment Not on file documented as of this encounter Visit Diagnoses Not on filedocumented in this encounter Additional Health Concerns Assessment Noted Time PHQ-9 Depression Total Score: 16 024 10:34 AM EDT documented as of this encounter Care Teams School Traffic Supervisor Relationship Specialty Start Date End Date Edwige Chang MD [address] [place] [address] PCP - General Family Medicine 01/17/22 Preeti Holland FNP Family Medicine 12/08/21 Juana Huggins Health Navigator Case Management 02/06/22 Charli Saunders LCSW Collar Setter Behavioral Health 09/09/24 Keri South Collar Setter Behavioral Health 09/09/24 12/14/24 Ren Lopez Entry Tech 12/14/24 12/16/24 documented as of this encounter
--- OUTSIDE RECORDS SUMMARY | 2024-12-17 18:37 | XMS_ITS | Encounter Summary ---
Author Organization [employer] Address [address] [place] [address] 7t [place] [address] Care Team Providers Care Undercover Agent Name Role Phone Amalia Preeti MOUNTER SMOKING PIPE Unavailable Unavailable Edwige Chang MD Primary Care Provider [phone] Juana Huggins Unavailable Unavailable Charli SaundersW Unavailable [phone] Keri South Unavailable Ren Lopez Unavailable Encounter Details Date Type Department Care Team (Late st Contact Info) Description 09/16/2023 Orders Only [facility] [address] [place] [address] Edwige Chang MD [address] [place] [address] Social History Tobacco Use Types Packs/Day Years [...] C-spine Computed Tomogra phy Edwige Chang MD [facility] CT PROCEDURES Final Result documented in this encounter Visit Diagnoses Not on filedocumented in this encounter Additional Health Concerns Assessment Noted Time PHQ-9 Depression Total Score: 16 05 024 10:34 AM EDT documented as of this encounter Care Teams Undercover Agent Relationship Specialty Start Date End Date Edwige Chang MD [address] [place] [address] PCP - General Family Medicine 01/17/22 Preeti Holland FNP Family Medicine 12/08/21 Juana Huggins Health Navigator Case Management 02/06/22 Charli Saunders LCSW Shipping Assistant Behavioral Health 09/09/24 Keri South Shipping Assistant Behavioral Health 09/09/24 12/14/24 Ren Lopez Rn Visiting 12/14/24 12/16/24 documented as of this encounter
--- OUTSIDE RECORDS SUMMARY | 2024-12-17 18:37 | XMS_ITS | Encounter Summary ---
Author Organization [employer] Address [address] [place] [address] 7t [place] [address] Care Team Providers Care Physician Office Rep Name Role Phone AmaliaPreeti [place] Unavailable Unavailable Edwige Chang MD Primary Care Provider [phone] Juana Huggins Unavailable Unavailable Charli Saunders CONCESSION CASHIER Unavailable [phone] Keri South Unavailable Ren Lopez Unavailable Reason for Visit * Reason Onset Date Comments medication 12/22/2022 Encounter Details Date Type Department Care Team (Late st Contact Info) Description 12/22/2022 Telephone [place] [facility] MEDICAL [address] [place] [address] Edwige Chang MD [address] [place] [address] medication Social History Tobacco Use Types Packs/Day [...] - 12/22/2022 9:57 AM EST Patient left care [facility] that she was due to get a months worth of Ativan and only got 14 days worth. Please advise. documented in this encounter Plan of Treatment Not on file documented as of this encounter Visit Diagnoses Not on filedocumented in this encounter Care Teams Physician Office Rep Relationship Specialty Start Date End Date Edwige Chang MD [address] [place] [address] PCP - General Family Medicine 01/17/22 Preeti Holland FNP Family Medicine 12/08/21 Juana Huggins Health Navigator Case Management 02/06/22 Charli Saunders LCSW Robot Technician Behavioral Health 09/09/24 Keri South Robot Technician Behavioral Health 09/09/24 12/14/24 Ren Lopez Material Controller 12/14/24 12/16/24 documented as of this encounter
[2024-12-18 02:37] LABS: Appearance Urine Clear; Glucose Urine UA Negative (Negative); PH 6.5 (5.0-9.0); Specific Gravity - Urine <= 1.005 (1.005-1.025)
[2024-12-18 02:38] LABS: UPreg QC Valid YES
[2024-12-18 02:48] LABS: Cannabinoid Screen Urine Not Detected (Not Detect)
--- NOTE | 2024-12-18 05:30 | PC.NURSE ---
Assumed care at 1845. Patient observed to be pacing in room and responding to internal stimuli. Requested/received HS scheduled medications. No PRN's utilized. Denied current pain/discomfort. When asked about SI/HI/AVH, patient did not answer t/w and only stared. D/t commotion on unit, patient became agitated. Remained in room, but began to scream out vulgar language in vietnamese. MD Robledo made aware, order for 1mg Ativan obtained. T/w attempted to offer PRN medication, but patient refused. Snacks, liquids, warm blanket, and weighted blanket provided. Once commotion on unit settled, patient settled into bed. No other behavioral outbursts noted. Urine collected after several attempts. 15 minute safety checks ongoing. Plan of care ongoing.
--- NOTE | 2024-12-18 08:04 | PC.NURSE ---
Assumed care of patient at 0645, patient is calm and cooperative at this time, wandering around her room, occasionally yelling out. Patient is reporting vaginal itching and pain at this time and is requesting HIV medications . MD Wood made aware via tigertext at 0805. Continue plan of care for psych consult
[2024-12-18 10:24] LABS: CT PCR Urine NOT DETECTED (Not Detect.); NG PCR Urine NOT DETECTED (Not Detect.)
--- NOTE | 2024-12-18 11:50 | PHA.MEDREC ---
Addendum entered by Cordell Guzman, PharmD 12/18/24 12:27: MED REC CHECKED BY [facility] Original Note: Pharmacy Consult ? Medication Reconciliation Pharmacy reviewed med rec done by nursing. Spoke with pt and she seemed very spacey with minimal response, staring off and not verbally answering questions, but able to shake head yes or No when asked about home medications. Pt just discharged with us 12/17 and confirmed via head nod that she still takes the meds that were continued on Dc pkt (Haloperidol, Quetiapine and Topiramate).
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
[2024-12-18 18:12] VITALS: BP 116/69; PULSE 86; RESP 14; TEMP 37.2; O2SAT 97
[2024-12-18 18:44] VITALS: BP 121/81; PULSE 89; RESP 16; TEMP 36.2; O2SAT 100; BMI 29.8
--- NOTE | 2024-12-18 19:00 | PC.NURSE ---
Patient arrived to the unit at 18:30. Provider Kia Sánchez notified that pt needs to be signed in. Vitals obtained/WNL and skin check done with another staff member (unremarkable). Patient given yellow socks and placed as a high fall risk for hx of seizures. Patient given admission packet, declined to sign ALFONSO's, but agreed to sign Understanding regarding valuables , and was assisted by this nurse with filling out her menu tomorrow.
[2024-12-18 20:15] VITALS: BP 120/82; PULSE 87; RESP 14; TEMP 36.3; O2SAT 95
[2024-12-18 20:50] VITALS: BP 122/73; PULSE 75; RESP 16; O2SAT 100
--- NOTE | 2024-12-18 20:52 | P.EN_ITS ---
Event Note Date of Service: 12/18/24 Event Note: rapid response called on pt due to witness seizure. tech found pt on the floor by the door with convulsive seizure. pt has a hx of seizures last seizure 3 months ago per pt. history is unclear, if she fell and hit head. denies head pain, neck pain or hip pain. VSS. POC WNL. pt is alert and oriented. no pain with palpation of skull, neck or active/passive movement of hips. head CT, c- spine CT, CBC, CMP, lactic acid. valium 5mg IM PRN seizures. pt seen with Dr Nath. Time Spent With Patient Time: Total time managing care of this patient today ____ minutes.
--- NOTE | 2024-12-18 20:52 | ECG_ITS ---
Test Reason : cp Blood Pressure : */* mmHG Vent. Rate : 74 BPM Atrial Rate : 74 BPM P-R Int : 130 ms QRS Dur : 74 ms QT Int : 382 ms P-R-T Axes : 65 78 63 degrees QTcB Int : 424 ms Normal sinus rhythm Normal ECG When compared with ECG of 13-Dec-2024 13:17, Nonspecific T wave abnormality no longer evident in Inferior leads QT has shortened Referred By: Yanira Mullins Electronically Signed By: Yony Ramos
[2024-12-18 21:02] LABS: Glucose, Whole Blood 118 mg/dL (60-115)
[2024-12-18 22:11] VITALS: BP 122/73; PULSE 75; RESP 16; O2SAT 100
--- NOTE | 2024-12-18 22:15 | PC.NURSE ---
12/18/24 At 2039, pt was found laying on floor by [facility] with possible seizure activity. Rapid response was called. Nursing Supervisor Yard Erin Aranda, Hospitalist Dr. Nath assessed pt. Kia Sánchez [employer]ER [employer]SEMBLER aware. Pt vitals were stable. POC was 118. Pt able to nod head to answer assessment questions. Pt denied any physical complaints. Pt stated she gently put herself on floor. Pt refused lab work and a Ct scan. Pt increased to 5 minute checks.
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
[2024-12-19 09:00] VITALS: RESP 16
[2024-12-19 09:32] LABS: Alanine Aminotransferase 22 U/L (0-31); Albumin Level 4.7 g/dL (3.5-5.0); Alkaline Phosphatase 61 U/L (39-117); Anion Gap 14 (12-20); Aspartate Amino Transferase 19 U/L (5-31); Blood Urea Nitrogen 15 mg/dL (9-16); Calcium 9.7 mg/dL (8.4-10.2); Carbon Dioxide 18 mmol/L (22-29); Chloride 112 mmol/L (96-108); Cholesterol 204 mg/dL (<200); Creatinine Clr Calc Pharmacy 98.5; Estimated Glomerular Filt Rate > 60; HDL Cholesterol 53 mg/dL (>40); Potassium 3.8 mmol/L (3.3-5.1); Sodium 140 mmol/L (135-145); Total Protein 7.5 g/dL (6.5-8.0); Triglycerides 92 mg/dL (<150)
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
[2024-12-19] MEDS: OLANZapine ODT 10 MG TAB.RAPDIS TRANSLINGU (15:50)
[2024-12-20 08:00] VITALS: BP 121/67; PULSE 80; RESP 14; TEMP 36.4; O2SAT 100
[2024-12-20] MEDS: OLANZapine ODT 10 MG TAB.RAPDIS TRANSLINGU (17:19)
[2024-12-20 20:00] VITALS: BP 132/75; PULSE 79; RESP 14; TEMP 36.4; O2SAT 99
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
[2024-12-21 07:40] VITALS: BP 103/70; PULSE 70; RESP 20; TEMP 36.2; O2SAT 99
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
[2024-12-21] MEDS: OLANZapine ODT 10 MG TAB.RAPDIS TRANSLINGU (09:14)
--- NOTE | 2024-12-21 11:01 | MHC.CLN ---
CONSULT ROUTINE CONSULT. NO NOTED NUTRITION CONCERNS.
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
[2024-12-21 20:00] VITALS: BP 102/57; PULSE 69; RESP 16; TEMP 36.6; O2SAT 100
[2024-12-22 07:52] VITALS: BP 113/66; PULSE 87; RESP 16; TEMP 36.3; O2SAT 98
--- NOTE | 2024-12-22 10:26 | HO.PSYCHPN ---
Subjective Subjective Date of Service: 12/22/24 Reason For Visit: crisis Subjective Notes: 3 Day Interim History: Patient reports feeling alright today; pt reports she feels improved with taking Haldol. Discussed JONES; pt reports she doesn't like how they make me feel and make the hallucinations worse . Patient agreed to increase in Haldol. Haldol increased to 10mg PO BID. denies SI/HI/VH. She continues to report auditory hallucinations of mumbles . Not attending groups. Per nursing, slept 8 hours. 3 day up on 12/24/24. Medication Compliance: Yes Side effects from medications: No Attending Groups: No Mental Status Exam Mental Status Exam Narrative: Pt is alert and oriented; behavior is cooperative and calm; dressed in casual attire; mood is described as alright ; Speech is normal rate, volume and not pressured; thought process is organized; Thought content is on discharge; denies SI/HI/VH. +AH of mumbles . Diagnostics Vital Signs (24Hr): Vital Signs - 24 hr 12/21/24 20:00 12/22/24 07:52 Temperature 97.9 F 97.3 F Pulse Rate 69 87 Respiratory Rate 16 16 Blood Pressure 102/57 L 113/66 Pulse Oximetry 100 98 Oxygen Delivery Method Room Air Room Air BMI result Body Mass Index 29.8 Labs 12/19/24 07:55 Medications Medications Current Medications Acetaminophen (Acetaminophen 325 Mg Tablet) 650 mg PO Q6H PRN PRN Reason: Headache/Pain, Scale 1-10 Last Admin: 12/21/24 10:31 Dose: 650 mg Al Hydroxide/Mg Hydroxide (Magnesium Hydrox/Alum Hydrox 30 Ml Oral.Susp) 30 ml PO Q6H PRN PRN Reason: Heartburn/Nausea Benztropine Mesylate (Benztropine Mesylate 0.5 Mg Tablet) 0.5 mg PO BID [facility] Last Admin: 12/22/24 08:25 Dose: 0.5 mg Diazepam (Diazepam 10 Mg/2 Ml Cartridge) 5 mg IM STAT PRN PRN Reason: Seizures Haloperidol (Haloperidol 5 Mg Tablet) 5 mg PO BID [facility] Last Admin: 12/22/24 08:25 Dose: 5 mg Hydroxyzine HCl (Hydroxyzine Hcl 25 Mg Tablet) 25 mg PO Q6H PRN PRN Reason: mild anxiety Last Admin: 12/21/24 07:51 Dose: 25 mg Magnesium Hydroxide (Milk Of Magnesia 30 Ml Oral.Susp) 30 ml PO DAILY PRN PRN Reason: Constipation Nicotine (Nicotine 21 Mg Patch.Td24) 21 mg TRANSDERMA DAILY [facility] Last Admin: 12/22/24 10:02 Dose: Not Given Nicotine Polacrilex (Nicotine Polacrilex 2 Mg Gum) 4 mg BUCCAL Q2H PRN PRN Reason: Nicotine Cravings Olanzapine (Olanzapine Odt 10 Mg Tab.Rapdis) 10 mg TRANSLINGU Q6H PRN PRN Reason: agitation Last Admin: 12/21/24 09:14 Dose: 10 mg Quetiapine Fumarate (Quetiapine Fumarate 50 Mg Tablet) 50 mg PO BEDTIME [facility] Last Admin: 12/21/24 21:54 Dose: 50 mg Topiramate (Topiramate 100 Mg Tablet) 100 mg PO BEDTIME [facility] Last Admin: 12/21/24 21:54 Dose: 100 mg Trazodone HCl (Trazodone Hcl 50 Mg Tablet) 50 mg PO BEDTIME MRX1 PRN PRN Reason: Insomnia Last Admin: 12/21/24 21:54 Dose: 50 mg Allergies Allergies Allergy/AdvReac Type Severity Reaction Status Date / Time dog dander (DOG DANDER) Allergy Intermediate ITCHY EYES Verified 12/17/24 16:14 pollen extracts (POLLEN) Allergy Intermediate STUFFY, Verified 12/17/24 16:14 ITCHY EYES Pork/Porcine Containing Allergy Itching Verified 12/17/24 16:14 Products Assessment & Plan Assessment & Plan (1) Schizoaffective disorder, bipolar type: Status: Acute Code(s): F25.0 - Schizoaffective disorder, bipolar type (2) PTSD (post-traumatic stress disorder): Status: Acute Code(s): F43.10 - Post-traumatic stress disorder, unspecified (3) Cocaine use disorder: Status: Acute Code(s): F14.10 - Cocaine abuse, uncomplicated (4) Opioid use disorder: Status: Acute Code(s): F11.90 - Opioid use, unspecified, uncomplicated Plan Patient is a 39 year old, Hispnic, Bilingual speaking female with hx of schizoaffective, bipolar type, GENARO and opiate use disorders who is assessed by the CARE Team at [facility] after she presents via EMS from the [facility]. Reportedly, patient got into a verbal altercation with a woman and her young daughter that patient thought was her family and was surrounded by [facility] security upon EMS arrival. It is reported that patient was aggressive, combative and threatening towards EMS. It appears that Pt received medication changes and that patient planned to return to her tent located in [place]. Per record, patient was admitted to M3 from -12/17/24. Formulation/clinical reasoning: rapid decomp, increased ing paranoid, psychotic and aggressive behavior. Patient would be a good candidate for mentaly health court commitment if continue wanting to leave hospital early without enough time to manage psychotic symptoms. Patient would benefit in restrictive environment for safety of patient and people in community, and refer patient back to OP psychiatric services for continuing of care. Plan: Patient on 5 minute checks for safety d/t seizure episode on 12/18/24. Refused all lab works or CT scan which were ordered by Hospitalist. Refuse IM Valium but agreed to take PO. Admitted to M3: TDN 12/24/24. . Work with treatment team to do collateral Sz precaution. 12/19: STD test negative. Lab result unremakable . U/A negative. continue with all meds that has been taking prior to discharge on 12/17. PRN IM Valium available for seizure. 12/20: Patient is visible at times, seen in room, she was crawling in bed reading the Bible. Reports that she is Pentecostalism, reports a little bit anxious but denies depression. Denies hallucinations. Reports burning sensation when void and feel like something raping me . Patient refused evening scheduled medication yesterday. However, she thought she was taking other medications, and did not remember if she refused them. Encouraged to consistent with medication. She is preoccupied with Bible, appeared to be paranoid. UA, STD was negative yesterday. We will continue to monitor patient actually experience real symptoms or just feeling paranoid, perseverative about it. Per nursing patient slept only for 4 hours. 12/21: Active on unit. keeping to self. Patient reports feeling okay ; pt discussed events prior to admissions; pt stated, I went to the mall to buy headphones and this lady kept staring at me. She had a little girl with her but of course I wouldn't do anything. I got upset and hit the chair and security came. I know I can't get angry like that because it makes people nervous . denies SI/HI/VH. She reports auditory hallucinations of mumbles ; pt stated, I don't hear them much when I'm on my medicine . 3 day up on 12/24/24. Continue tx plan. 12/22: Patient reports feeling alright today; pt reports she feels improved with taking Haldol. Discussed JONES; pt reports she doesn't like how they make me feel and make the hallucinations worse . Patient agreed to increase in Haldol. Haldol increased to 10mg PO BID. denies SI/HI/VH. She continues to report auditory hallucinations of mumbles . Not attending groups. Per nursing, slept 8 hours. 3 day up on 12/24/24. Patient educated on: diagnosis and medication risk/benefits Reason for continued inpatient stay Substantial Risk for: med/psych decompensation Time Spent With Patient Time: Total time managing care of this patient today _20___ minutes.
[2024-12-22] MEDS: OLANZapine ODT 10 MG TAB.RAPDIS TRANSLINGU (13:26)
[2024-12-23 08:00] VITALS: BP 109/74; PULSE 79; RESP 18; TEMP 36.2; O2SAT 99
[2024-12-23] MEDS: OLANZapine ODT 10 MG TAB.RAPDIS 5 MG TRANSLINGU (13:45)
--- NOTE | 2024-12-23 14:26 | P.PNPSI_ITS ---
Subjective Subjective Date of Service: 12/23/24 Reason For Visit: crisis Subjective Notes: 3 Day Interim History: Active on unit. social with select peers and staff. Not attending groups. Patient reports feeling good today and looking forward to discharge tomorrow. Patient stated, I'm feeling better. I'm going to keep to myself and keep taking my meds. I need to leave here and go get a new ID . denies SI/HI/VH. She continues to report auditory hallucinations which she describes as mumbles . denies SI/HI/VH. denies any side effects from increase in Haldol. 3 day up on 12/24/24. Medication Compliance: Yes Side effects from medications: No Attending Groups: No Mental Status Exam Mental Status Exam Narrative: Pt is alert and oriented; behavior is cooperative, friendly and calm; dressed in casual attire; mood is described as good ; eye contact appropriate; Speech is normal rate, volume and not pressured; thought process is organized and goal directed; Thought content is on discharge; denies SI/HI/VH. She reports chronic auditory hallucinations; currently having +AH of mumbles . Diagnostics Vital Signs (24Hr): Vital Signs - 24 hr 12/23/24 08:00 Temperature 97.2 F Pulse Rate 79 Respiratory Rate 18 Blood Pressure 109/74 Pulse Oximetry 99 Oxygen Delivery Method Room Air BMI result Body Mass Index 29.8 Labs 12/19/24 07:55 Medications Medications Current Medications Acetaminophen (Acetaminophen 325 Mg Tablet) 650 mg PO Q6H PRN PRN Reason: Headache/Pain, Scale 1-10 Last Admin: 12/21/24 10:31 Dose: 650 mg Al Hydroxide/Mg Hydroxide (Magnesium Hydrox/Alum Hydrox 30 Ml Oral.Susp) 30 ml PO Q6H PRN PRN Reason: Heartburn/Nausea Benztropine Mesylate (Benztropine Mesylate 0.5 Mg Tablet) 0.5 mg PO BID ENRIKE Last Admin: 12/23/24 08:40 Dose: 0.5 mg Diazepam (Diazepam 10 Mg/2 Ml Cartridge) 5 mg IM STAT PRN PRN Reason: Seizures Haloperidol (Haloperidol 5 Mg Tablet) 10 mg PO BID ENRIKE Last Admin: 12/23/24 08:40 Dose: 10 mg Hydroxyzine HCl (Hydroxyzine Hcl 25 Mg Tablet) 25 mg PO Q6H PRN PRN Reason: mild anxiety Last Admin: 12/21/24 07:51 Dose: 25 mg Magnesium Hydroxide (Milk Of Magnesia 30 Ml Oral.Susp) 30 ml PO DAILY PRN PRN Reason: Constipation Nicotine (Nicotine 21 Mg Patch.Td24) 21 mg TRANSDERMA DAILY ENRIKE Last Admin: 12/23/24 08:41 Dose: Not Given Nicotine Polacrilex (Nicotine Polacrilex 2 Mg Gum) 4 mg BUCCAL Q2H PRN PRN Reason: Nicotine Cravings Last Admin: 12/22/24 15:31 Dose: 4 mg Olanzapine (Olanzapine Odt 10 Mg Tab.Rapdis) 5 mg TRANSLINGU Q6H PRN PRN Reason: agitation Last Admin: 12/23/24 13:45 Dose: 5 mg Quetiapine Fumarate (Quetiapine Fumarate 50 Mg Tablet) 50 mg PO BEDTIME ENRIKE Last Admin: 12/22/24 22:27 Dose: 50 mg Topiramate (Topiramate 100 Mg Tablet) 100 mg PO BEDTIME ENRIKE Last Admin: 12/22/24 22:28 Dose: 100 mg Trazodone HCl (Trazodone Hcl 50 Mg Tablet) 50 mg PO BEDTIME MRX1 PRN PRN Reason: Insomnia Last Admin: 12/21/24 21:54 Dose: 50 mg Allergies Allergies Allergy/AdvReac Type Severity Reaction Status Date / Time dog dander (DOG DANDER) Allergy Intermediate ITCHY EYES Verified 12/17/24 16:14 pollen extracts (POLLEN) Allergy Intermediate STUFFY, Verified 12/17/24 16:14 ITCHY EYES Pork/Porcine Containing Allergy Itching Verified 12/17/24 16:14 Products Assessment & Plan Assessment & Plan (1) Schizoaffective disorder, bipolar type: Status: Acute Code(s): F25.0 - Schizoaffective disorder, bipolar type (2) PTSD (post-traumatic stress disorder): Status: Acute Code(s): F43.10 - Post-traumatic stress disorder, unspecified (3) Cocaine use disorder: Status: Acute Code(s): F14.10 - Cocaine abuse, uncomplicated (4) Opioid use disorder: Status: Acute Code(s): F11.90 - Opioid use, unspecified, uncomplicated Plan Patient is a 39 year old, Hispnic, Bilingual speaking female with hx of schizoaffective, bipolar type, GENARO and opiate use disorders who is assessed by the CARE Team at [facility] after she presents via EMS from the [employer]. Reportedly, patient got into a verbal altercation with a woman and her young daughter that patient thought was her family and was surrounded by [employer] security upon EMS arrival. It is reported that patient was aggressive, combative and threatening towards EMS. It appears that Pt received medication changes and that patient planned to return to her tent located in [place]. Per record, patient was admitted to from -12/17/24. Formulation/clinical reasoning: rapid decomp, increased ing paranoid, psychotic and aggressive behavior. Patient would be a good candidate for mental health court commitment if continue wanting to leave hospital early without enough time to manage psychotic symptoms. Patient would benefit in restrictive environment for safety of patient and people in community, and refer patient back to OP psychiatric services for continuing of care. Plan: Patient on 5 minute checks for safety d/t seizure episode on 12/18/24. Refused all lab works or CT scan which were ordered by Hospitalist. Refuse IM Valium but agreed to take PO. Admitted to : TDN 12/24/24. . Work with treatment team to do collateral Sz precaution. 12/19: STD test negative. Lab result unremakable . U/A negative. continue with all meds that has been taking prior to discharge on 12/17. PRN IM Valium available for seizure. 12/20: Patient is visible at times, seen in room, she was crawling in bed reading the Bible. Reports that she is Religion, reports a little bit anxious but denies depression. Denies hallucinations. Reports burning sensation when void and feel like something raping me . Patient refused evening scheduled medication yesterday. However, she thought she was taking other medications, and did not remember if she refused them. Encouraged to consistent with medication. She is preoccupied with Bible, appeared to be paranoid. UA, STD was negative yesterday. We will continue to monitor patient actually experience real symptoms or just feeling paranoid, perseverative about it. Per nursing patient slept only for 4 hours. 12/21: Active on unit. keeping to self. Patient reports feeling okay ; pt discussed events prior to admissions; pt stated, I went to the mall to buy headphones and this lady kept staring at me. She had a little girl with her but of course I wouldn't do anything. I got upset and hit the chair and security came. I know I can't get angry like that because it makes people nervous . denies SI/HI/VH. She reports auditory hallucinations of mumbles ; pt stated, I don't hear them much when I'm on my medicine . 3 day up on 12/24/24. Continue tx plan. 12/22: Patient reports feeling alright today; pt reports she feels improved with taking Haldol. Discussed JONES; pt reports she doesn't like how they make me feel and make the hallucinations worse . Patient agreed to increase in Haldol. Haldol increased to 10mg PO BID. denies SI/HI/VH. She continues to report auditory hallucinations of mumbles . Not attending groups. Per nursing, slept 8 hours. 3 day up on 12/24/24. 12/23: Active on unit. social with select peers and staff. Not attending groups. Patient reports feeling good today and looking forward to discharge tomorrow. Patient stated, I'm feeling better. I'm going to keep to myself and keep taking my meds. I need to leave here and go get a new ID . denies SI/HI/VH. She continues to report auditory hallucinations which she describes as mumbles . denies SI/HI/VH. denies any side effects from increase in Haldol. 3 day up on 12/24/24. Patient educated on: diagnosis and medication risk/benefits Reason for continued inpatient stay Substantial Risk for: stable for discharge Time Spent With Patient Time: Total time managing care of this patient today _20___ minutes.
[2024-12-24 08:35] VITALS: BP 130/81; PULSE 75; RESP 16; TEMP 36.2; O2SAT 100
--- NOTE | 2024-12-24 08:53 | PM.PSYDC ---
DS: Providers Provider Date of Service: 12/24/24 Date of admission: 12/18/24 16:40 Date of discharge: 12/24/24 Primary care physician: Unknown Physician Admitting clinician: Kia Sánchez Attending physician on admission: Oren Baird Attending physician on discharge: Oren Baird Discharging clinician: Yanira Mullins DS: Diagnosis Discharge Diagnosis (1) Schizoaffective disorder, bipolar type: Status: Acute (2) PTSD (post-traumatic stress disorder): Status: Acute (3) Cocaine use disorder: Status: Acute (4) Opioid use disorder: Status: Acute DS: Medications Discharge Medications Home Medications: Previous Rx's ?Medication ?Instructions ?Recorded quetiapine 50 mg tablet 50 mg PO BEDTIME 30 days #30 tabs 12/17/24 topiramate 100 mg tablet 100 mg PO BEDTIME 30 days #30 tabs 12/17/24 benztropine 0.5 mg tablet 0.5 mg PO BID 30 days #60 tabs 12/23/24 haloperidol 10 mg tablet 10 mg PO BID 30 days #60 tabs 12/23/24 Mental Status Exam Mental Status Exam Narrative: Pt is alert and oriented; behavior is cooperative, friendly and calm; dressed in casual attire; mood is described as good ; eye contact appropriate; Speech is normal rate, volume and not pressured; thought process is organized; Thought content is on discharge; denies SI/HI/VH. She reports chronic auditory hallucinations; currently having +AH of mumbles . Data Data Completed and Pending Completed studies during hospitalization [Text1]: 12/18/24 12/18/24 12/18/24 02:24 08:42 20:49 Sodium Potassium Chloride Carbon Dioxide Anion Gap BUN Creatinine Estim Creat Clear Calc Estimated GFR POC Glucose 118 H Random Glucose Estimat Average Glucose Hemoglobin A1c % Calcium Total Bilirubin AST ALT Alkaline Phosphatase Total Protein Albumin Triglycerides Cholesterol LDL Cholesterol, Calc HDL Cholesterol Urine Color Yellow Urine Appearance Clear Urine pH 6.5 Ur Specific [place] <= 1.005 Urine Protein Negative Urine Glucose (UA) Negative Urine Ketones Negative Urine Blood Negative Urine Nitrite Negative Ur Leukocyte Esterase Negative Urine Test NEGATIVE Ur N gonorrhoeae DNA (PCR) NOT DETECTED Urine Opiates Screen Not Detected Ur Buprenorphine Scrn Not Detected Ur Oxycodone Screen Not Detected Urine Methadone Screen Not Detected Urine Fentanyl Screen Not Detected Ur Barbiturates Screen Not Detected Ur Phencyclidine Scrn Not Detected Ur Amphetamines Screen Not Detected U Benzodiazepines Scrn Not Detected Urine Cocaine Screen Not Detected U Marijuana (THC) Screen Not Detected Ur Chlamydia DNA (PCR) NOT DETECTED 12/19/24 07:55 Sodium 140 Potassium 3.8 Chloride 112 H Carbon Dioxide 18 L Anion Gap 14 BUN 15 Creatinine 0.77 Estim Creat Clear Calc 98.5 Estimated GFR > 60 POC Glucose Random Glucose 112 Estimat Average Glucose 128 Hemoglobin A1c % 6.1 H Calcium 9.7 Total Bilirubin 0.4 AST 19 ALT 22 Alkaline Phosphatase 61 Total Protein 7.5 Albumin 4.7 Triglycerides 92 Cholesterol 204 H LDL Cholesterol, Calc 133 H HDL Cholesterol 53 Urine Color Urine Appearance Urine pH Ur Specific [place] Urine Protein Urine Glucose (UA) Urine Ketones Urine Blood Urine Nitrite Ur Leukocyte Esterase Urine Test Ur N gonorrhoeae DNA (PCR) Urine Opiates Screen Ur Buprenorphine Scrn Ur Oxycodone Screen Urine Methadone Screen Urine Fentanyl Screen Ur Barbiturates Screen Ur Phencyclidine Scrn Ur Amphetamines Screen U Benzodiazepines Scrn Urine Cocaine Screen U Marijuana (THC) Screen Ur Chlamydia DNA (PCR) DS: Summary Hospital Course Hospital Course: Per Care team note: Patient is a 39 year old, Hispnic, Bilingual speaking female with hx of schizoaffective, bipolar type, GENARO and opiate use disorders who is assessed by the CARE Team at [facility] after she presents via EMS from the [employer]. Reportedly, patient got into a verbal altercation with a woman and her young daughter that patient thought was her family and was surrounded by [employer] security upon EMS arrival. It is reported that patient was aggressive, combative and threatening towards EMS. It appears that Pt received medication changes and that patient planned to return to her tent located in [place]. Per record, patient was admtited to M3 from -12/17/24. On M3: Pattient reports reasons for being brought back here is altercation . Patient reports that there was a lady at the mall who was agitated and think patient was trying to attack her when patient tried to approach her. Patient says the lady kept saying what is wrong with you?' repeatedly while patient did not do anything harm to her or being aggressive to her. Then mall security was called and they brought her to the ED. Patient denies SI/SIB/HI/AVH. She appear anxious, with tense eye contact and at somepoint she stands up and get closer to this provider during 1-1 assessment. Report that she is currently homeless. Conflicted information regarding if she has children or not as she reports having no children but at the end of the encounter she stays that she wants to be with her daughter in [place] but she has no money to flight to [place]. Patient says that her daughter did the search, there is ticket with only $40 for the flight from [place] to [place]. Nursing reports patient has seizure activities on 12/18/24 in the evening, per report, patient put herself on the floor and report having seizure activities. Refuse CT scan, refused lab work. Refused IM Valium but took PO 5mg x1. Per hospitalist note regarding the event rapid response called on pt due to witness seizure. tech found pt on the floor by the door with convulsive seizure. pt has a hx of seizures last seizure 3 months ago per pt. history is unclear, if she fell and hit head. denies head pain, neck pain or hip pain. VSS. POC WNL. pt is alert and oriented. no pain with palpation of skull, neck or active/passive movement of hips. head CT, c-spine CT, CBC, CMP, lactic acid. valium 5mg IM PRN seizures Patient signed 3-day notice right after the encounter with plan to leave the hospital early. Patient is A+Ox3, wearing hospital attire. Occasionally has white towel over her head walking in the truong, in and out to her room and common areas. Unkempt hair, fair ADL's. Mood is anxious, tense eye contact. Speech is WNl, with possible thought block. Appear to be paranoid, mild knowledge regarding medications she was discharged with on 12/17. No SI/SIB/HI/AVH. Poor insight and judgment. Patient probably was not able on current regimens prior to discharge but does not want medication changes at this time when discussed. She can be a good candidate for mental civil commitment d/t aggressive/paranoid thoughts that put herself and others in community at risk in term of safety if discharged when signed 3-day notice is . Patient is a 39 year old, Hispnic, Bilingual speaking female with hx of schizoaffective, bipolar type, GENARO and opiate use disorders who is assessed by the CARE Team at [facility] after she presents via EMS from the [employer]. Reportedly, patient got into a verbal altercation with a woman and her young daughter that patient thought was her family and was surrounded by [employer] security upon EMS arrival. It is reported that patient was aggressive, combative and threatening towards EMS. It appears that Pt received medication changes and that patient planned to return to her tent located in [place]. Per record, patient was admitted to from -12/17/24. Formulation/clinical reasoning: rapid decomp, increased ing paranoid, psychotic and aggressive behavior. Patient would be a good candidate for mental health court commitment if continue wanting to leave hospital early without enough time to manage psychotic symptoms. Patient would benefit in restrictive environment for safety of patient and people in community, and refer patient back to OP psychiatric services for continuing of care. Plan: Patient on 5 minute checks for safety d/t seizure episode on 12/18/24. Refused all lab works or CT scan which were ordered by Hospitalist. Refuse IM Valium but agreed to take PO. Admitted to M3: TDN 12/24/24. . Work with treatment team to do collateral Sz precaution. STD test negative. Lab result unremakable . U/A negative. continue with all meds that has been taking prior to discharge on 12/17. PRN IM Valium available for seizure. Patient is visible at times, seen in room, she was crawling in bed reading the Bible. Reports that she is Latter-Day, reports a little bit anxious but denies depression. Denies hallucinations. Reports burning sensation when void and feel like something raping me . Patient refused evening scheduled medication yesterday. However, she thought she was taking other medications, and did not remember if she refused them. Encouraged to consistent with medication. She is preoccupied with Bible, appeared to be paranoid. UA, STD was negative yesterday. We will continue to monitor patient actually experience real symptoms or just feeling paranoid, perseverative about it. Per nursing patient slept only for 4 hours. Active on unit. keeping to self. Patient reports feeling okay ; pt discussed events prior to admissions; pt stated, I went to the mall to buy headphones and this lady kept staring at me. She had a little girl with her but of course I wouldn't do anything. I got upset and hit the chair and security came. I know I can't get angry like that because it makes people nervous . denies SI/HI/VH. She reports auditory hallucinations of mumbles ; pt stated, I don't hear them much when I'm on my medicine . 3 day up on 12/24/24. Continue tx plan. Patient reports feeling alright today; pt reports she feels improved with taking Haldol. Discussed JONES; pt reports she doesn't like how they make me feel and make the hallucinations worse . Patient agreed to increase in Haldol. Haldol increased to 10mg PO BID. denies SI/HI/VH. She continues to report auditory hallucinations of mumbles . Not attending groups. Per nursing, slept 8 hours. 3 day up on 12/24/24. Active on unit. social with select peers and staff. Not attending groups. Patient reports feeling good today and looking forward to discharge tomorrow. Patient stated, I'm feeling better. I'm going to keep to myself and keep taking my meds. I need to leave here and go get a new ID . denies SI/HI/VH. She continues to report auditory hallucinations which she describes as mumbles . denies SI/HI/VH. denies any side effects from increase in Haldol. 3 day up on 12/24/24. Patient continues to reports feeling good ; denies SI/HI/VH.+AH of mumbles , which she reports are chronic. She reports looking forward to leaving on her 3 day notice. Patient reports she plans on being medication compliant and following up with outpatient providers. Status at Discharge Cognitive/behavioral status at discharge: Patient has insight and demonstrates good judgment in terms of wanting to pursue treatment. Patient has a safety plan that includes presenting to the closest ER or calling 911 if feeling unsafe. Functional status at discharge: independent ambulation Overall status at discharge: patient is back to baseline Time Spent with Patient Time attestation: Total time managing care of this patient today _20___ minutes. Time spent: Less than 30 minutes Discharge Plan Discharge Anticipated Discharge Date/Time: 12/24/24 11:00 Patient Disposition: Home, Self-Care Discharge Diagnosis: Schizoaffective d/o, PTSD, cocaine use d/o, opioid use d/o Referrals: Therapy & Psychiatry [Other] - 1 Week Referral Note: *Please present to the clinic above, Saturday through Saturday during the hours of 8am and 8pm, in order to obtain outpatient mental health providers. [facility] [Provider Group] - 1 Week Referral Note: 12-21-24 [facility] was added to patients chart. Please call [phone] to schedule a follow up appt within 7-10 days of discharge. No release or PCP on file. Pt states she will utilize an Urgent Care Walk in site in [place] if required for medical needs. Discharge Medications: New benztropine 0.5 mg Tablet 0.5 mg PO BID 30 Days Qty: 60 0RF haloperidol 10 mg tablet 10 mg PO BID 30 Days Qty: 60 0RF Continued topiramate 100 mg Tablet 100 mg PO BEDTIME 30 Days Qty: 30 0RF quetiapine 50 mg Tablet 50 mg PO BEDTIME 30 Days Qty: 30 0RF Discontinued haloperidol 2 mg Tablet 2 mg PO BEDTIME 30 Days Qty: 30 0RF Discharge Orders: Discharge Order (Routine); Ordered 12/24/24 Ordered By: Yanira Mullins Diet: Regular diet Activity on Discharge: As tolerated Stand Alone Forms: Patient Portal Discharge page, Community Support Print Language: Yakut Care Plan Goals: Maintain mood and safe behaviors Take medications as prescribed Continue to pursue sobriety Practice coping skills Continue with outpatient providers and reach out to them as needed Health Concerns: Mood stability and behaviors Sobriety Plan of Treatment: Follow up with your PCP, psychiatric provider and other outpatient providers regarding above concerns Take medications as prescribed Assessment: Patient has insight and demonstrates good judgment in terms of wanting to pursue treatment. Patient has a safety plan that includes presenting to the closest ER or calling 911 if feeling unsafe. Discharge Date/Time: 12/24/24 11:55
== END 2024-12-24 11:55 | disposition home or self-care (01) | DRG 750 ==
LOC: HO.ED 16:40 → HO.PADLT16 12-18 18:07
PROVIDERS: Emergency Medicine Emergency Medical Services; Admitting Provider Registered Nurse; Emergency Provider Student in an Organized Health Care Education/Training Program; Responsible Provider Registered Nurse; Visit Provider Psychiatry & Neurology Psychiatry
DX: F25.0 Schizoaffective disorder, bipolar type (principal); R56.9 Unspecified convulsions; F11.90 Opioid use, unspecified, uncomplicated; F14.10 Cocaine abuse, uncomplicated; F43.10 Post-traumatic stress disorder, unspecified; Z59.02 Unsheltered homelessness; Z87.891 Personal history of nicotine dependence; Z79.899 Other long term (current) drug therapy
CPT/HCPCS: 36415; 80053; 80061; 80307; 81003; 81025; 82947; 83036; 87491; 87591; 93005; 99285; S9485

== ENCOUNTER → 2024-12-17 16:19 | Outpatient (BNV) | payer OTHER, SELFPAY | PROVIDERS: Emergency Provider Student in an Organized Health Care Education/Training Program; Visit Provider Social Worker | DX: F20.0 Paranoid schizophrenia (principal) | CPT/HCPCS: 99231; 99232 ==

== ENCOUNTER 2024-12-18 16:40 | Outpatient (BNV) | payer MEDICAID, SELFPAY | END 2024-12-18 20:52 | PROVIDERS: Admitting Provider Registered Nurse; Emergency Provider Student in an Organized Health Care Education/Training Program; Visit Provider Internal Medicine Cardiovascular Disease | DX: R07.9 Chest pain, unspecified (principal) | CPT/HCPCS: 93010 ==

== ENCOUNTER → 2024-12-18 16:40 | Outpatient (BNV) | payer MEDICAID, SELFPAY | PROVIDERS: Admitting Provider Registered Nurse; Emergency Provider Student in an Organized Health Care Education/Training Program; Visit Provider Physician Assistant | DX: F22 Delusional disorders (principal) | CPT/HCPCS: 99221; 99499 ==

== ENCOUNTER 2024-12-24 15:18 | Inpatient (IN) | payer MEDICAID, OTHER, SELFPAY ==
--- OUTSIDE RECORDS SUMMARY | 2024-01-07 11:00 | XMS_ITS ---
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 Discharge from??; [...] Active Encounters Encounter Location Date Provider Diagnosis [facility] [address] [place], [place] [id number] 01/07/2024 Taye Bedolla Encounter for screening for [...] * Kushal MAYNARDaDOB:1985 ( 39 yo F)Acc No.[id number]:01/07/2024 Progress Notes Patient: Leah MÉNDEZ Provider: Talha Bedolla MD :1985 A ge:38 Y S ex:Female Date:01/07/2024 Address:homeless, [address] ([id number]) Mailing Address, [facility] Pcp:Leroy Du Subjective: * Chief Complaints: * 1 . Office: Transfer of care/discharge f/u. 2. Symptom screening by [facility] staff pre entrance to clinic. 3. 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 Discharge from??; Meds; LABS; Also 01/19 with [facility]??, VISIYT: OKQ; function; schizaffective; diabetes status; tobacco; SA. As of 4:30 had not arrived for 4:00. Has no phone. Note she also has appt with [facility] in [facility] in january. * ROS: N o acute [...] Electronic signature of Andchuyita Bedolla MD on 12/24/2024 at 06:41 PM EST Sign off status: Pending * Provider: Talha Bedolla MD Date: 03/08/2023 Generated for Natividad sheikh/Yonatan/Radha on: 02/24/2024 06:41 PM EST
--- OUTSIDE RECORDS SUMMARY | 2024-01-20 05:30 | XMS_ITS ---
Author Organization [facility] Address [address] [place] [phone] Care Team Providers Care Smoking Pipe Mounter Name Role Phone Leroy Du Primary Care Provider Yee Shipley Unavailable [phone] REASON FOR VISIT Office: Transfer of care/discharge f/u Encounters Encounter Location Date Provider Diagnosis [address] [address] 01/20/2024 Yee Shipley Encounter for screening for [...] * Bob MAYNARD:1985 ( 39 yo F)Acc No.[id number]:01/20/2024 Progress Notes Patient: Leah MÉNDEZ Provider: JULIANO Marshall :1985 A ge:38 Y S ex:Female Date:01/20/2024 Address:homeless, [address] ([id number]) Mailing Address, [facility] Pcp:Leroy Du Subjective: * Chief Complaints: * [...] * Electronic signature of Tunde Shipley on 12/24/2024 at 06:40 PM EST Sign off status: Pending * Provider: JULIANO Marshall Date: 03/22/2023 Generated for Natividad sheikh/Yonatan/Thomassmitting on: 02/24/2024 06:40 PM EST
--- OUTSIDE RECORDS SUMMARY | 2024-10-24 16:00 | XMS_ITS ---
Author Organization [facility] Address [address] [place] [address] Care Team Providers Care Mirror Inspector Name Role Phone Leroy Du Primary Care Provider [phone] Migration, Provider Unavailable Unavailable REASON FOR VISIT [...] Active Encounters Encounter Location Date Provider Diagnosis [address] [address] 10/24/2024 Provider Migration Plan Of Treatment No Information Progress Notes * Kim MAYNARDB:1985 ( 39 yo F)Acc No.[id number]:10/24/2024 Patient: Bereket EBENLeah Provider: :1985 A ge:39 Y S ex:Female Date:10/24/2024 Address:homeless, [address] ([phone]) Mailing Address, [place] [facility] Pcp:ZZJessica ZZBossie Subjective: * Chief Complaints: * [...] Electronic signature of Prov ider Migration on 12/24/2024 at 06:40 PM EST Sign off status: Pending * Provider: Date: 0 10/24/2024 Generated for Natividad sheikh/Yonatan/Serenityitting on: 02/24/2024 06:40 PM EST
[2024-12-24 15:41] VITALS: BP 134/92; BP 152/100; PULSE 86; PULSE 90; RESP 16; TEMP 36.7; O2SAT 100; O2SAT 96; BMI 29.9
--- NOTE | 2024-12-24 15:51 | MHC.EDTECH ---
Patient collected toilet water while attempting to catch urine in cup while this tech was present in bathroom for changeover. Sample disgarded. RN aware
--- NOTE | 2024-12-24 15:52 | MHC.EDTECH ---
Patiently politely declining lab work at this time. RN aware.
--- NOTE | 2024-12-24 16:36 | PC.NURSE ---
Pt allowed for blood draw, continues to refuse to give appropriate urine sample
--- NOTE | 2024-12-24 16:43 | ED.PSYCH ---
HPI - Psych General Chief Complaint: Psychiatric Symptoms Stated Complaint: CRISIS EVAL,NOT ANSWERING QUESTIONS PER EMS Time Seen by Provider: 12/24/24 16:17 Source: patient, EMS, RN notes reviewed and old records reviewed Mode of arrival: EMS History of Present Illness ED Provider: Yin Stubbs PA-C HPI Narrative: 39-year-old female with a past medical history PTSD, anxiety, pseudoseizures, bipolar, cocaine and opiate use disorder, discharged from inpatient psych at our facility this morning, presenting to the ED via EMS s/p being found on the side of the road alone. Requesting to speak with crisis. Uncooperative with history and physical exam. Remaining history limited at this time Related Data Previous Rx's ?Medication ?Instructions ?Recorded quetiapine 50 mg tablet 50 mg PO BEDTIME 30 days #30 tabs 12/17/24 topiramate 100 mg tablet 100 mg PO BEDTIME 30 days #30 tabs 12/17/24 benztropine 0.5 mg tablet 0.5 mg PO BID 30 days #60 tabs 12/23/24 haloperidol 10 mg tablet 10 mg PO BID 30 days #60 tabs 12/23/24 Allergies Allergy/AdvReac Type Severity Reaction Status Date / Time dog dander (DOG DANDER) Allergy Intermediate ITCHY EYES Verified 12/24/24 15:47 pollen extracts (POLLEN) Allergy Intermediate STUFFY, Verified 12/24/24 15:47 ITCHY EYES Pork/Porcine Containing Allergy Itching Verified 12/24/24 15:47 Products Review of Systems Review of Systems: Yes all other systems are reviewed and are negative Constitutional: Constitutional: Reports as per [facility] Past Medical History Attestation statement: The following information was validated with the patient. Source: old records reviewed Medical History Cocaine use disorder Opioid use disorder Generalized abdominal discomfort Medical clearance for psychiatric admission PTSD (post-traumatic stress disorder) Prediabetes Oligomenorrhea Routine medical exam Anxiety Pseudoseizures Bipolar 1 disorder, manic, moderate Social History Social History Household Members: None Household Members Other:: says has spouse but unhoused Housing: Homeless Do you presently have visiting nurse or other home services: No Unable to assess alcohol history related to: Refusing to respond Alcohol intake: current Alcohol intake frequency: 0-2 drinks per day Alcohol type: hard liquor Comment: 5 Patient Tobacco Use Status: Former Tobacco user Tobacco use type: Cigarette Cigarette Packs Per Day: 1 Cigarettes Per Day: 20.0 Years Smoked: Many' Smoked in Last 30 Days: Yes e-Cigarette/Vaping Use: Former Use Second Hand Smoke Exposure: No Use of substances other than those prescribed or required for medical reasons: Yes Substance Use Type: Crack/Cocaine Last Used Substance: Just Prior to Admission Advance Directives: No Advance Directives Information Provided: Yes Patient : No service: No Sexual orientation: Straight/Heterosexual Physical Exam Vital Signs: Vital Signs: Last Vital Signs Temp 98.0 F 12/24/24 15:41 Pulse 90 12/24/24 15:41 Resp 16 12/24/24 15:41 BP 134/92 H 12/24/24 15:41 Pulse Ox 100 12/24/24 15:41 O2 Del Method Room Air 12/24/24 15:41 BMI result Body Mass Index 29.9 Const: General: no acute distress HEENT: Head: Yes normal to inspection and Yes atraumatic Ears: hearing grossly normal bilaterally General nose exam: Normal external nose present Face and sinus: Yes normal facial exam Eyes: General: appearance normal, both eyes and all related structures EOM: EOMs intact bilaterally Neck: Neck: Yes normal visual inspection and Yes no meningeal signs Resp: Effort & Inspection: normal respiratory effort and no respiratory distress Cardio: Rate: regular rate Skin: Rashes: no rashes Wounds: no wounds Neuro: General: tone normal, no meningeal signs and CN's II-XI intact bilaterally Cranial nerves: Yes CN's II-XII intact bilaterally Extrem: General: Yes normal to inspection Psych: Attitude: Refuses to answer (attititude/behavior) Course Course Course Narrative: - physician observation initiated at 17:32 as patient needs more time to be evaluated by CARE team -1800-- ED care transferred to NEEL Delgado pending CARE eval Reevaluation(s) Reevaluation #1: Time: 06:03 Date: 12/25/24 Provider: Johan Gonsalez MD Patient in physician observation for psychiatric evaluation.? No acute events reported overnight. No current complaints. VS stable.? Patient is in bed search status/pending CARE team evaluation. Will continue to monitor. Medications Administered Generic Name Dose Route Start Last Admin Trade Name Freq PRN Reason Stop Dose Admin Lorazepam 1 mg 12/24/24 18:51 12/25/24 04:07 Lorazepam 1 Mg Tablet PO 1 mg Q4H PRN Administration Anxiety Discontinued Medications Generic Name Dose Route Start Last Admin Trade Name Freq PRN Reason Stop Dose Admin Trazodone HCl 50 mg 12/24/24 21:50 12/24/24 21:54 Trazodone Hcl 50 Mg Tablet PO 12/24/24 21:51 50 mg ONCE ONE Administration Medical Decision Making Medical Decision Making MDM Narrative: 39-year-old female with a past medical history PTSD, anxiety, pseudoseizures, bipolar, cocaine and opiate use disorder, discharged from inpatient psych at our facility this morning, presenting to the ED via EMS s/p being found on the side of the road alone. Requesting to speak with crisis. Uncooperative with history and physical exam. On exam vital signs stable, NAD, nontoxic appearing, physical exam as noted above. Concern for acute brissa/psychosis. Concern for acute brissa/psychosis. Plan: CARE team eval, likely Psychiatry admission, +/- labs Please refer to course for remaining clinical decision making, interpretation of labs/imaging results, and discussions with consultants and/or family members. Differential Diagnosis Differential Diagnoses: The differential diagnosis associated with the presentation includes As above Admission/Observation Consideration of admission/observation: Escalation of care including admission/observation considered Consult Healthcare Provider Management of the patient was discussed with: Behavioral Health Provider Lab Data [facility] Lab Attestation statement: I reviewed the patient's lab results. 12/24/24 16:36 12/24/24 16:36 Labs: Lab Results 12/24/24 12/24/24 Range/Units 16:36 21:49 WBC 7.1 (4.8-10.8) X10*3/uL RBC 4.92 (4.20-5.50) X10*6/uL Hgb 12.9 (12.0-16.0) g/dl Hct 38.4 (37.0-47.0) % MCV 78.0 L (80.0-98.0) fL MCH 26.2 L (27.0-33.0) pg MCHC 33.6 (31.0-35.0) g/dl RDW 15.2 (11.0-16.0) % Plt Count 308 (160-400) X10*3/uL MPV 9.9 (9.4-12.3) fL Immature Gran % (Auto) 0.4 (0.0-0.4) % Neut % (Auto) 67.9 (45-73) % Lymph % (Auto) 25.0 (20-40) % [place] % (Auto) 5.5 (2-11) % Eos % (Auto) 0.4 (0-4) % Baso % (Auto) 0.8 (0-2) % Lymph # (Auto) 1.8 (1.2-4.9) X10*3/uL [place] # (Auto) 0.4 (0.1-1.2) X10*3/uL Eos # (Auto) 0.0 (0.0-0.4) X10*3/uL Baso # (Auto) 0.1 (0.0-0.2) X10*3/uL Abs Immat Gran (auto) 0.03 (0.00-0.03) X10*3/uL Absolute Neuts (auto) 4.8 (2.0-8.3) x10*3/uL Absolute Nucleated RBC 0.000 (0.0-0.012) X10*3/uL Nucleated RBC % (auto) 0.0 (0.0-0.2) /100WBC Sodium 139 (135-145) mmol/L Potassium 3.9 (3.3-5.1) mmol/L Chloride 110 H (96-108) mmol/L Carbon Dioxide 20 L (22-29) mmol/L Anion Gap 13 (12-20) BUN 14 (9-16) mg/dL Creatinine 0.69 (0.5-1.4) mg/dL Estim Creat Clear Calc 110.2 Estimated GFR > 60 Random Glucose 107 (60-115) mg/dL Calcium 9.8 (8.4-10.2) mg/dL Total Bilirubin 0.3 (0.0-1.0) mg/dL AST 23 (5-31) U/L ALT 24 (0-31) U/L Alkaline Phosphatase 64 (39-117) U/L Total Protein 8.2 H (6.5-8.0) g/dL Albumin 5.1 H (3.5-5.0) g/dL Hold Yellow Top See Note Urine Color Yellow Urine Appearance Clear Urine pH 6.5 (5.0-9.0) Ur Specific [place] <= 1.005 (1.005-1.025) Urine Protein Negative (Neg-Trace) mg/dL Urine Glucose (UA) Negative (Negative) mg/dL Urine Ketones Negative (Negative) mg/dL Urine Blood Negative (Negative) Urine Nitrite Negative (Negative) Ur Leukocyte Esterase Negative (Negative) Urine Test NEGATIVE (NEGATIVE) Urine Opiates Screen Not Detected (Not Detect) Ur Buprenorphine Scrn Not Detected (Not Detect) ng/mL Ur Oxycodone Screen Not Detected (Not Detect) ng/mL Urine Methadone Screen Not Detected (Not Detect) ng/mL Urine Fentanyl Screen Not Detected (Not Detect) Ur Barbiturates Screen Not Detected (Not Detect) Ur Phencyclidine Scrn Not Detected (Not Detect) Ur Amphetamines Screen Not Detected (Not Detect) U Benzodiazepines Scrn Not Detected (Not Detect) Urine Cocaine Screen Not Detected (Not Detect) U Marijuana (THC) Screen Not Detected (Not Detect) Ethyl Alcohol < 10 mg/dL Independent Historian Clinical information obtained from an independent historian. History obtained from or confirmed by: EMS External Record Review External record reviewed: Inpatient record, Office record, Outpatient record, Prior outpatient labs, Prior outpatient radiology, Primary care record and Outside ED record Tests considered The following testing was considered but not selected: As above Prescription Management I considered prescription management with: Other Chronic Conditions Patient?s care impacted by: Other Social Determinants Patient?s care significantly limited by Social Determinants of Health including: Inadequate housing, Problems related to primary support group and Other Social Determinant of Health Discharge Plan Discharge Clinical Impression: Psychosis Patient Disposition: Admitted As Inpatient Interventions: [place]-Suicide Risk Severity Scale Last Done: 12/24/24 15:48 Print Language: Icelandic
[2024-12-24 16:58] LABS: MANUAL DIFF FLAG NO
[2024-12-24 17:07] LABS: Hematocrit 38.4 % (37.0-47.0); Hemoglobin 12.9 g/dl (12.0-16.0); Imm Gran Abs Auto 0.03 X10*3/uL (0.00-0.03); Imm Gran Pct Auto 0.4 % (0.0-0.4); Lymphocytes Absolute Auto 1.8 X10*3/uL (1.2-4.9); Mean Corpuscular HGB Conc 33.6 g/dl (31.0-35.0); Mean Corpuscular Hemoglobin 26.2 pg (27.0-33.0); Mean Corpuscular Volume 78.0 fL (80.0-98.0); NRBC Abs Auto 0.000 X10*3/uL (0.0-0.012); NRBC Pct Auto 0.0 /100WBC (0.0-0.2); Platelet Count 308 X10*3/uL (160-400); Red Blood Count 4.92 X10*6/uL (4.20-5.50); White Blood Count 7.1 X10*3/uL (4.8-10.8)
[2024-12-24 17:19] LABS: Alanine Aminotransferase 24 U/L (0-31); Albumin Level 5.1 g/dL (3.5-5.0); Alkaline Phosphatase 64 U/L (39-117); Anion Gap 13 (12-20); Aspartate Amino Transferase 23 U/L (5-31); Blood Urea Nitrogen 14 mg/dL (9-16); Calcium 9.8 mg/dL (8.4-10.2); Carbon Dioxide 20 mmol/L (22-29); Chloride 110 mmol/L (96-108); Creatinine Clr Calc Pharmacy 110.2; Estimated Glomerular Filt Rate > 60; Potassium 3.9 mmol/L (3.3-5.1); Sodium 139 mmol/L (135-145); Total Protein 8.2 g/dL (6.5-8.0)
--- OUTSIDE RECORDS SUMMARY | 2024-12-24 18:40 | XMS_ITS | Encounter Summary ---
Author Organization [employer] Address [address] [place] [address] [address] [place] [address] Care Team Providers Care Filament Shaper Name Role Phone AmaliaPreeti CUTTER WOODWIND REEDS Unavailable Unavailable Edwige Chang MD Primary Care Provider [phone] Juana Huggins Unavailable Unavailable Charli Saunders LCSW Unavailable [phone]eri [address] Unavailable Ren Lopez Unavailable Kameron Echols Unavailable Reason for Visit * Reason Comments Med Refill Encounter Details Date Type Department Care Team (Late st Contact Info) Description 02/21/2022 Refill Marc [facility] [address] [place] [address] Edwige Chang MD [address] [place] [address] Medication refill Social History Tobacco Use Types [...] prescriptions documented in this encounter Care Teams Filament Shaper Relationship Specialty Start Date End Date Edwige Chang MD [address] [place] [address] PCP - General Family Medicine 01/17/22 Preeti Holland FNP Family Medicine 12/08/21 Juana Huggins Health Navigator Case Management 02/06/22 Charli Saunders LCSW Assignment Desk Assistant Behavioral Health 09/09/24 12/21/24 Keri South Assignment Desk Assistant Behavioral Health 09/09/24 12/14/24 Ren Lopez C Programmer 12/14/24 12/16/24 Kameron Echols 12/18/24 documented as of this encounter
--- OUTSIDE RECORDS SUMMARY | 2024-12-24 18:40 | XMS_ITS | Encounter Summary ---
Author Organization [employer] Address [address] [place] [address] 7[address] [place] [address] Care Team Providers Care Tool Crib Manager Name Role Phone Preeti Holland Primary Care Provider Unavailab Preeti Alvarado Unavailable Unavailable Edwige Chang MD Primary Care Provider [phone] Juana Huggins Unavailable Unavailable Charli Saunders LCSW Unavailable [phone] Unavailable Ren Lopez Unavailable Kameron Echols Unavailable Encounter Details Date Type Department Care [...] on filedocumented in this encounter Care Teams Tool Crib Manager Relationship Specialty Start Date End Date Preeti Holland FNP PCP - General Family Medicine 12/08/21 01/16/22 Edwige Chang MD [address] [place] [address] PCP - General Family Medicine 01/17/22 Preeti Holland FNP Family Medicine 12/08/21 Juana Huggins Health Navigator Case Management 02/06/22 Charli Saunders LCSW Sock And Stocking Ironer Behavioral Health 09/09/24 12/21/24 Keri South Sock And Stocking Ironer Behavioral Health 09/09/24 12/14/24 Ren Lopez Pouring Crane Operator 12/14/24 12/16/24 Kameron Echols 12/18/24 documented as of this encounter
--- NOTE | 2024-12-24 18:41 | PC.NURSE ---
Pt continues to lay in bed, periodically rolling around, singing. Pt refused to eat dinner
--- OUTSIDE RECORDS SUMMARY | 2024-12-24 18:41 | XMS_ITS | Encounter Summary ---
Author Organization [employer] [facility] Address [address] [facility] [address]t [place] [address] Care Team Providers Care Stuffed Casing Tier Name Role Phone Preeti Holland DIESEL LOCOMOTIVE FIRER/FIREMAN Unavailable Unavailable Edwige Chang MD Primary Care Provider [phone] Juana Huggins Unavailable Unavailable Charli SaundersW Unavailable [phone] Kameron Echols Unavailable Reason for Visit * Reason Comments c3 care management Encounter Details Date Type Department Care Team ([facility] st Contact Info) Description 12/21/2024 Patient Outreach [facility] Care [facility] (C3) Department [address] [facility] [address] [place] [id number] Kameron Echols c3 care management Social History Tobacco Use Types Packs/Day Years [...] as of this encounter Progress Notes * Kameron Echols - 12/21/2024 12:08 PM EST 1st outreach Unable to reach documented in this encounter Plan of Treatment Not on file documented as of this encounter Visit Diagnoses Not on filedocumented in this encounter Additional Health Concerns Assessment Noted Time PHQ-9 Depression Total Score: 16 05 024 10:34 AM EDT documented as of this encounter Care Teams Stuffed Casing Tier Relationship Specialty Start Date End Date Edwige Chang MD [address] [place] [address] PCP - General Family Medicine 01/17/22 Preeti Holland FNP Family Medicine 12/08/21 Juana Huggins Health Navigator Case Management 02/06/22 Charli Saunders LCSW Supervisor Denture Department Behavioral Health 09/09/24 12/21/24 Kameron Echols 12/18/24 documented as of this encounter
--- OUTSIDE RECORDS SUMMARY | 2024-12-24 18:41 | XMS_ITS | Encounter Summary ---
Author Organization [employer] Address [address] [place] [address] 7t [place] [address] Care Team Providers Care Presser Automatic Name Role Phone AmaliaPreeti [place] Unavailable Unavailable Edwige hCang MD Primary Care Provider [phone] Juana Huggins Unavailable Unavailable Charli Saunders LCSW Unavailable [phone] Keri [address] Unavailable Ren Lopez Unavailable Kameron Echols Unavailable Reason for Visit * Reason Onset Date Comments medication 12/22/2022 Encounter Details Date Type Department Care Team (Late st Contact Info) Description 12/22/2022 Telephone Marc [facility] [address] [place] [address] Edwige Chang MD [address] [place] [address] medication Social History Tobacco Use Types Packs/Day [...] Please advise * Telephone Encounter - Jacque Whetaley - 12/22/2022 9:57 AM EST 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 Please advise. documented in this encounter Plan of Treatment Not on file documented as of this encounter Visit Diagnoses Not on filedocumented in this encounter Care Teams Presser Automatic Relationship Specialty Start Date End Date Edwige Chang MD [address] [place] [address] PCP - General Family Medicine 01/17/22 Preeti Holland FNP Family Medicine 12/08/21 Juana Huggins Health Navigator Case Management 02/06/22 Charli Saunders LCSW Nuclear Engineer Behavioral Health 09/09/24 12/21/24 Keri South Nuclear Engineer Behavioral Health 09/09/24 12/14/24 Ren Lopez Instrument Repair Supervisor 12/14/24 12/16/24 Kameron Echols 12/18/24 documented as of this encounter
--- OUTSIDE RECORDS SUMMARY | 2024-12-24 18:41 | XMS_ITS | Encounter Summary ---
Author Organization [employer] [facility] Address [address] [facility] 7t [place] [address] Care Team Providers Care Electromyographic Technician Name Role Phone Preeti Holland FLOR[place] Unavailable Unavailable Edwige Chang MD Primary Care Provider [phone] Juana Huggins Unavailable Unavailable Charli Saunders LCSW Unavailable [phone] Kameron Echols Unavailable Encounter Details Date Type Department Care Team (Late st Contact Info) Description 12/21/2024 Patient Outreach [facility] (C3) Department [address] [facility] [address] [place] [address] Charli Saunders LCSW Social History [...] Progress Notes * Charli Saunders LCSW - 12/21/2024 11:28 AM EST Unsuccessful contact post dc; SWCM to close w/ [facility] documented in this encounter Plan of Treatment Not on file documented as of this encounter Visit Diagnoses Not on filedocumented in this encounter Additional Health Concerns Assessment Noted Time PHQ-9 Depression Total Score: 16 024 10:34 AM EDT documented as of this encounter Care Teams Electromyographic Technician Relationship Specialty Start Date End Date Edwige Chang MD [address] [place] [address] PCP - General Family Medicine 01/17/22 Preeti Holland FNP Family Medicine 12/08/21 Juana Huggins Health Navigator Case Management 02/06/22 Charli Saunders LCSW Blade Sharpener Behavioral Health 09/09/24 12/21/24 Kameron Echols 12/18/24 documented as of this encounter
--- OUTSIDE RECORDS SUMMARY | 2024-12-24 18:41 | XMS_ITS ---
Author Organization [employer] Address [address] [place] [address] [facility] [place] [address] Care Team Providers Care Wreath Machine Operator Name Role Phone Preeti Holland Unavailable Unavailable Edwige Chang MD Primary Care Provider [phone] Juana Huggins Unavailable Unavailable Kameron Echols Unavailable C3 CM [facility] Status:Closed (Closed) Start date:09/09/2024 Enrollment date:10/27/2024 End date:12/21/2024 Close reason:Cannot Reach Continued Care and Services Coordination
--- OUTSIDE RECORDS SUMMARY | 2024-12-24 18:41 | XMS_ITS | Patient Health Record ---
Author Organization [facility] Address [address] [place] [address] Care Team Providers Care Crane Assembler Name Role Phone Leroy Du Primary Care Provider [phone] Taye Bedolla Unavailable [phone] Yee Shipley Unavailable [phone] Migration, Provider Unavailable Unavailable Allergies No Known [...] Comme nts Tdap IM Intramuscular 02/25/2020 Administered [facility] 49 [id number] Moderna Covid-19 Vaccine Administration - First Dose (Single Dose 100MCG/0.5ML 1ST) IM Intramuscular 03/14/2020 Administered Vaccinated through long-term by N Influenza Unknown 12/01/2010 Administered [...] Hyperglycemia due to type 2 diabetes mellitus (825323107927676) Type 2 diabetes mellitus with hyperglycemia (E11.65) Active confirmed Problem Opioid dependence (29216765) Opioid dependence, uncomplicated (F11.20) Active confirmed Problem Cocaine abuse wi th intoxication, unspecified (F14.129) Active confirmed Problem Tobacco user (353658048) Nicotine dependence, unspecified, uncomplicated (F17.200) Active confirmed Problem Schizoaffective disorder, depressive type (70937936) Schizoaffective disorder, depressive type (F25.1) Active confirmed Problem Anxiety disorder (226499730) Anxiety disorder, unspecified (F41.9) Active confirmed Problem Acute stress reaction (79855303) Acute stress reaction (F43.0) Active confirmed Problem Insomnia (355221050) Insomnia, unspecified (G47.00) Active confirmed Problem Mild intermittent asthma (693322091) Mild intermittent asthma, uncomplicated (J45.20) Active confirmed Problem Gastro-esophageal reflux disease without esophagitis (537036747) Gastro-esophageal reflux disease without esophagitis (K21.9) Active confirmed Problem Sciatica (58787913) Lumbago with sciatica, right side (M54.41) Active confirmed Problem Irregular menstruation (82739300) Irregular menstruation, unspecified (N92.6) Active confirmed Problem Nausea (445242410) Nausea (R11.0) Active confir med Problem Body mass index 30.00 to 34.99 (316390758400054) Body mass index [BMI] 34.0-34.9, adult (Z68.34) Active confirmed Problem Sheltered homelessness (179547167868100) Sheltered homelessness (Z59.01) Active confirmed Encounters Encounter Location Date Provider Diagnosis [facility] [address] [place] [address] 10/24/2024 Provider Migration [address] [place] [address] 01/07/2024 Taye Bedolla Assessments Encounter Date Diagnosis [...] Insured Coverage Start Date Coverage End Date [place] C3 [address] [place], [place] [id number] Leah Maynard Self - patient is the insured 0 Medications Administered Medication Instructions Date of Administration Dosage Notes Ketorolac 01/17/2021 30 mg [facility] [id number] Medical (General) History Medical History History ICD [...] acute p haryngitis, dc to home 04/10/2020 [facility] Hosp x 6 months-mental b reakdown-hosp x 3 2015
--- OUTSIDE RECORDS SUMMARY | 2024-12-24 18:41 | XMS_ITS | Encounter Summary ---
Author Organization [employer] Address [address] [place] [address] [address]t [place] [address] Care Team Providers Care Maintenance Dispatcher Name Role Phone AmaliaPreeti RETAIL TRAINING MANAGER Unavailable Unavailable Edwige Chang MD Primary Care Provider Juana Huggins Unavailable Unavailable Charli Saunders CERTIFIED TUMOR REGISTRAR Unavailable [phone]eri [address] Unavailable Ren Lopez Unavailable Kameron Echols Unavailable Encounter Details Date Type Department Care Team (Late st Contact Info) Description 04/06/2024 Orders Only [facility] [address] [place], [place] [id number] Edwige Chang MD [address] [place] [address] Social History Tobacco Use Types Packs/Day Years [...] documented as of this encounter Care Teams Maintenance Dispatcher Relationship Specialty Start Date End Date Edwige Chang MD [address] [place] [address] PCP - General Family Medicine 01/17/22 Preeti Holland FNP Family Medicine 12/08/21 Juana Huggins Health Navigator Case Management 02/06/22 Charli Saunders LCSW Header Operator Behavioral Health 09/09/24 12/21/24 Keri South Header Operator Behavioral Health 09/09/24 12/14/24 Ren Lopez Animal Ecologist 12/14/24 12/16/24 Kameron Echols 12/18/24 documented as of this encounter
--- OUTSIDE RECORDS SUMMARY | 2024-12-24 18:41 | XMS_ITS ---
Author Organization [employer] Address [address] [place] [address] [address] [place] [address] Care Team Providers Care Control Board Operator Name Role Phone Preeti Holland Unavailable Unavailable Edwige Chang MD Primary Care Provider [phone] Juana Huggins Unavailable Unavailable Kameron Echols Unavailable [facility] Status:Outreach In Progress (Enrolling) Start date:12/18/2024 Enrollment reason:ADT Feed Overview [facility]. Evs C3 eligible Case Team Name Relationship Phone Kameron Echols(Responsible Staff) [phone] Continued Care and Services Coordination
--- OUTSIDE RECORDS SUMMARY | 2024-12-24 18:41 | XMS_ITS | Clinical Summary ---
Author Organization [facility] Address [address] [place] [address] Phone Care Team Providers Care Server Developer Name Role Phone Edwige Chang MD Unavailable [phone] Edwige Chang MD Primary Care Provider [phone] Allergies Active Allergy Reactions Criticality Noted Date [...] - 10/22/2024 9:17 PM EDT Hospital Encounter [facility] [place] [address] Liu Cutler MD, MPH Breanna Hogan MD [...] patient's age to complete this topic IPV VACCINES Aged Out No longer eligi ble [...] HC IADNA HEPATITIS C QUANT & REVERSE CLIENT SALES AND SERVICE OFFICER Routine 02/28/2024 9:40 AM EST from Last 3 Months or Most Recently Relevant to Health Maintenance Results * (ABNORMAL) POCT Glucose (10/22/2024 6:43 PM EDT) [facility] Glucose, POCT 121(H) 70 - 100 mg/dL [facility] 10/22/2024 6:43 PM EDT 10/22/2024 6:49 PM EDT us Liu Cutler MD, MPH POINT OF CARE TEST ORDNoah VALERIE Final Result Performing Organization Address City/[facility]/[place] [address] * Lab Add On: CK (10/22/2024 10:00 AM EDT) [facility] TEST REQUESTED [facility] Comments (Chemistry) ADD ON COMPLETE. [facility] 10/22/2024 10:0 0 AM EDT 10/22/2024 10:06 AM EDT us Trip Mo MD LAB BLOOD [place] [address] * ECG 12-LEAD (10/22/2024 9:56 AM EDT) Ventricular Rate EKG/MIN 73 BPM [facility] Atrial Rate 73 BPM [facility] WA Interval 142 ms [facility] QRS Duration 80 ms [facility] QT Interval 394 ms [facility] QTC Interval 434 ms [facility] P [place] 66 degrees [facility] R Wave [place] 63 degrees [facility] T Wave [place] 51 degrees [facility] 10/22/2024 9:56 AM EDT [...] Cyst vs fluid collection around the scar [id number] x 6 x 6 mm. Endometrium: Normal. [...] scar. 2. No other acute pelvic abnormality. us Shree Plaza PA-C, MPH IMG US PELVIS Final Result * Lactate (10/21/2024 7:45 PM EDT) LACTIC ACID (MMOL/L) 1.0 0.5 - 2.0 mmol/L [facility] Blood 10/21/2024 7:45 PM EDT 10/21/2024 10:48 PM EDT us Shree Plaza PA-C, MPH LAB BLOOD BKR ORDERAB LES Final Result [facility] [address] [place] [address] * LFTs (hepatic panel) (10/21/2024 6:46 PM EDT) ALBUMIN 4.0 3.5 - 5.2 g/dL [facility] TOTAL BILIRUBIN 0.2 0.0 - 1.0 mg/dL [facility] DIRECT BILIRUBIN 0.1 mg/dL [facility] ALKALINE PHOSPHATASE 68 40 - 130 U/L [facility] AST 22 10 - 50 U/L [facility] ALT 15 10 - 50 U/L [facility] TOTAL PROTEIN 7.0 6.0 - 8.0 g/dL [facility] GLOBULIN 3.0 2.2 - 4.2 g/dL [facility] Blood 10/21/2024 6:46 PM EDT 10/21/2024 10:48 PM EDT us Shree Plaza PA-C, MPH LAB BLOOD BKR ORDERAB LES Final Result [place] [id number] [place] [address] * (ABNORMAL) CBC and differential (10/21/2024 6:46 PM EDT) WBC 4.13 4.00 - 11.00 K/uL [facility] RBC 4.50 4.00 - 5.20 M/uL [facility] HGB 11.4(L) 12.0 - 16.0 g/dL [facility] HCT 35.6(L) 36.0 - 46.0 % [facility] PLT 266 150 - 450 K/uL [facility] MCV 79.1(L) 80.0 - 100.0 fL [facility] MCH 25.3(L) 27.0 - 31.0 pg [facility] 32.0 32.0 - 36.0 g/dL [facility] RDW 15.6(H) 11.5 - 14.5 % [facility] MPV 10.1 8.4 - 12.0 fL [facility] NRBC 0.00 0.00 /100 WBCs [facility] ABSOLUTE NRBC 0.00 0.00 K/uL [facility] DIFF METHOD Auto [facility] NEUTS 31.6(L) 48.0 - 76.0 % [facility] LYMPHS 53.0(H) 18.0 - 41.0 % [facility] MONOS 9.9 4.0 - 11.0 % [facility] EOS 3.6 0.0 - 5.0 % [facility] BASOS 1.7(H) 0.0 - 1.5 % [facility] Granulocytes, immature (%) 0.2 0.0 - 0.9 % [facility] ABSOLUTE NEUTS 1.30(L) 1.92 - 7.60 K/uL [facility] ABSOLUTE LYMPHS 2.19 0.72 - 4.10 K/uL [facility] ABSOLUTE MONOS 0.41 0.16 - 1.10 K/uL [facility] ABSOLUTE EOS 0.15 0.00 - 0.50 K/uL [facility] ABSOLUTE BASOS 0.07 0.00 - 0.15 K/uL [facility] Granulocytes, immature 0.01 0.00 - 0.09 K/uL [facility] Blood 10/21/2024 6:46 PM EDT 10/21/2024 10:48 PM EDT us Shree Plaza PA-C MPH LAB BLOOD BKR ORDERAB LES Final Result Performing Organization Address [facility] [place] [address] * HCG (Quantitative, Blood) (10/21/2024 6:46 PM EDT) HCG (Quantitative) <2 IU/L [facility] Comment: <3 IU/L=Negative, 3-8 IU/L may indicate early (repeat in 48hrs), >8 IU/L=Positive. HCG REFERENCE RANGE: NON: < OR = 2 IU/L : 3 - 60,000 IU/L Blood 10/21/2024 6:46 PM EDT 10/21/2024 10:48 PM EDT us Shree Plaza PA-C MPH LAB BLOOD BKR ORDERAB LES Final Result Performing Organization Address [facility] [place] [address] * Magnesium (10/21/2024 6:46 PM EDT) MAGNESIUM 1.7 1.7 - 2.6 mg/dL [facility] Blood 10/21/2024 6:46 PM EDT 10/21/2024 10:48 PM EDT us Shree Plaza PA-C MPH LAB BLOOD BKR ORDERAB LES Final Result Performing Organization Address City/[facility] Co de Phone Number [address] [address] * Lipase (10/21/2024 6:46 PM EDT) LIPASE 40 13 - 60 U/L [facility] Blood 10/21/2024 6:46 PM EDT 10/21/2024 10:48 PM EDT us Shree Plaza PA-C, MPH LAB BLOOD BKR ORDERAB LES Final Result Performing Organization Address City/[facility]/ZIP Co de Phone Number [address] [address] * (ABNORMAL) CPK (creatine kinase) (10/21/2024 6:46 PM EDT) CREATINE KINASE 43(L) 50 - 185 U/L [facility] 10/21/2024 6:46 PM EDT 10/21/2024 10:48 PM EDT us Shree Plaza PA-C MPH LAB BLOOD BKR ORDERAB LES Final Result Performing Organization Address [facility] [place] [address] * (ABNORMAL) Basic metabolic panel (10/21/2024 6:46 PM EDT) Pathologist [facility] SODIUM 137 136 - 145 mmol/L [facility] CHLORIDE 104 98 - 107 mmol/L [facility] POTASSIUM 3.7 3.4 - 5.0 mmol/L [facility] CO2 21(L) 22 - 31 mmol/L [facility] BUN 12 6 - 23 mg/dL [facility] CREATININE 0.60 0.50 - 1.20 mg/dL [facility] GLUCOSE 107 70 - 115 mg/dL [facility] Comment:Note: ADA guidelines consider any fasting glucose above 100 mg/dL as pre-diabetic. CALCIUM 9.6 8.6 - 10.7 mg/dL [facility] EGFR 116 >60 mL/min/1.7 3m2 [facility] Comment:Estimated glomerular filtration rate calculated using the CKD-EPI refit equation. ANION GAP 12 3 - 15 mmol/L [facility] Blood 10/21/2024 6:46 PM EDT 10/21/2024 10:48 PM EDT us Shree Plaza PA-C, MPH LAB BLOOD BKR ORDERAB LES Final Result Performing Organization Address [facility] Co de Phone Number [facility] [address] [place] [address] * Hepatitis C RNA (02/28/2024 9:40 AM EST) Pathologist [facility] HCV RNA Detect/Quant Undetected Undetected IU/mL [facility] MED/[facility] Comment: (NOTE) Result in log IU/mL is Undetected. Genotype testing was not performed due to HCV viral load below 500 IU/mL. ADDITIONAL INFORMATION The quantification range of this assay is 15 to 100,000,000 IU/mL (1.18 log to 8.00 log IU/mL). Testing was performed using the wong HCV test ([employer] Blood 02/28/2024 9:40 AM EST 02/28/2024 10:13 AM EST us Magdy Burnette [facility]- LAB BLOOD ORDERABLES Carole l Result Performing Organization Address [facility] de Phone Number [facility] LAB MED/PATH [address] [place] [address] from Last 3 Months or Most Recently Relevant to Health Maintenance [place] [address] [facility] [address] [address] [place] [address] [place] [address] [address] [place] [address] [place] [address] [address] [place] [phone] ARIANNE [address] [address] [place] [phone] [place] [address] [facility] [place] [address] [place] [address] [place] [address] [place] [address] Advance Directives For more information, please contact: [phone] (9AM - 5PM [facility], Saturday-Saturday) * Full Code (Latest Code Status on File) Date Activated Date Inactivated Comments 03/30/2024 12:31 PM Question Answer Comments Code Status Confirmed With: Patient * Full Code Date Activated Date Inactivated Comments 08/29/2021 11:14 AM 03/30/2024 12:31 PM Question Answer Comments Code Status Confirmed With: Patient Care Teams Server Developer Relationship Specialty Start Date End Date Edwige Chang MD [address] [place] [address] [email or web address] PCP - General Family Medicine 09/17/23 Edwige Chang MD [address] [facility] [place] [address] Family Medicine 02/06/21 Additional Source Comments The information contained in this document represents components of the legal health record. It is not the complete legal health record.[facility]
--- OUTSIDE RECORDS SUMMARY | 2024-12-24 18:41 | XMS_ITS | Clinical Summary ---
Author Organization [facility] Address [address] [place] [phone] Phone Care Team Providers Care Business Systems Administrator Name Role Phone Edwige Chang MD Primary Care Provider [phone] Allergies No known active allergies Medications fluticasone [...] mmol/L LAB CHEMISTRY METHOD 12/24/2023 2:15 PM [facility] Anion Gap 9 3 - 11 LAB CHEMISTRY METHOD 12/24/2023 2:15 PM [facility] Glucose 111(H) 70 - 100 mg/dL LAB CHEMISTRY METHOD 12/24/2023 2:15 PM [facility] BUN 13 5 - 25 mg/dL LAB CHEMISTRY METHOD 12/24/2023 2:15 PM [facility] Creatinine 0.81 0.50 - 1.10 mg/dL LAB CHEMISTRY METHOD 12/24/2023 2:15 PM [facility] eGFR 95 >=60 mL/min/1. 73m2 LAB CHEMISTRY METHOD 12/24/2023 2:15 PM [facility] Comment:Calculation based on the Chronic Kidney Disease Epidemiology Collaboration (CKD-EPI) equation refit without adjustment for race. BUN/Creatinine Ratio 16.0 LAB CHEMISTRY METHOD 12/24/2023 2:15 PM [facility] Calcium 10.1 8.5 - 10.5 mg/dL LAB CHEMISTRY METHOD 12/24/2023 2:15 PM [facility] AST (SGOT) 20 10 - 42 unit/L LAB CHEMISTRY METHOD 12/24/2023 2:15 PM [facility] ALT (SGPT) 25 10 - 60 unit/L LAB CHEMISTRY METHOD 12/24/2023 2:15 PM [facility] Alkaline Phosphatase 79 42 - 121 unit/L LAB CHEMISTRY METHOD 12/24/2023 2:15 PM [facility] Total Protein 7.8 6.0 - 8.0 g/dL LAB CHEMISTRY METHOD 12/24/2023 2:15 PM [facility] Albumin 4.2 3.2 - 5.0 g/dL LAB CHEMISTRY METHOD 12/24/2023 2:15 PM EST [facility] Total Bilirubin 0.4 0.0 - 1.4 mg/dL LAB CHEMISTRY METHOD 12/24/2023 2:15 PM EST [facility] Blood Venous blood specimen / Unknown Venipuncture / Unknown 12/24/2023 1:21 PM EST 12/24/2023 1:43 PM EST us Francis Cheung DO LAB BLOOD ORDERABLES Final Result [facility] [address] [place] [address], from Last 3 Months or Most Recently Relevant to Health Maintenance Insurance MEDICAID - [place] Care Teams Business Systems Administrator Relationship Specialty Start Date End Date Edwige Chang MD [address] [place] [id number] PCP - General Family Medicine 12/24/23
--- OUTSIDE RECORDS SUMMARY | 2024-12-24 18:41 | XMS_ITS | Encounter Summary ---
Author Organization [facility] Address [address] [place] [address] [place], [place] [id number] Phone Care Team Providers Care Radio Antenna Installer Name Role Phone Edwige Chang MD Primary Care Provider Pcp, Unknown Primary Care Provider Unavailabl e Edwige Chang MD Primary Care Provider Edwige Chang MD Unavailable [phone] Edwige Chang MD Primary Care Provider Encounter Details Date Type Department Care Team (Latest Contact Info) Description 01/30/2021 Transcribe Orders [address] [place] [address] Lori Goldberg, SUPPLIER QUALITY ENGINEER [address] [place] [address] .hk Opioid dependence with opioid-induced disorder (Primary Dx) [...] HEP B CORE IGM AB Negative Negative [facility] Comment:IgM anti-HBc not det ected. Does not exclude the possibility of exposure to or infection with HBV. Blood 01/30/2021 12:1 8 PM EST 01/30/2021 12:28 PM EST us Lori Goldberg SUPPLIER QUALITY ENGINEER LAB BLOOD BKR ORDERABLE S Final Result [facility] [address] [place] [address] * Hepatitis C genotyping (01/30/2021 12:18 PM EST) Pathologist [facility] HCV GENOTYPE Test Not Performed. [facility] Comment: (NOTE) HCV Genotype, S was cancelled on 02/02/2021 at 10:17; Based on other test results additional testing not required. Genotyping not performed due to inability to generate sufficient target sequence for genotype analysis. Blood (Blood) 01/30/2021 12: 18 PM EST 01/30/2021 12:28 PM EST us Lori Goldberg SUPPLIER QUALITY ENGINEER NON CULTURE MICROBIOLOG Y Final Result Performing Organization Address City/[facility]/ZIP Co de Phone Number [facility] [address] [place] [address] * Hepatitis B surface antigen (01/30/2021 12:18 PM EST) Pathologist [facility] HBV SURFACE ANTIGEN NON-REACTI VE NON-REACTI VE [facility] Blood 01/30/2021 12:1 8 PM EST 01/30/2021 12:28 PM EST us Lori Goldberg SUPPLIER QUALITY ENGINEER LAB BLOOD BKR ORDERABLE S Final Result Performing Organization Address City/[facility]/ZIP Co de Phone Number [facility] [address] [place] [address] * (ABNORMAL) Comprehensive metabolic panel (01/30/2021 12:18 PM EST) SODIUM 136 133 - 146 mmol/L [facility] POTASSIUM 4.7 3.3 - 5.1 mmol/L [facility] CHLORIDE 101 96 - 108 mmol/L [facility] CO2 22 21 - 35 mmol/L [facility] BUN 17 6 - 19 mg/dL [facility] CREATININE 0.80 0.5 - 1.5 mg/dL [facility] GLUCOSE 120(H) 70 - 99 mg/dL [facility] ALBUMIN 4.7 3.9 - 4.8 g/dL [facility] TOTAL PROTEIN 7.8 6.5 - 8.0 g/dL [facility] CALCIUM 10.1 8.4 - 10.3 mg/dL [facility] ALKALINE PHOSPHATASE 94 39 - 117 U/L [facility] TOTAL BILIRUBIN 0.3 0.0 - 1.2 mg/dL [facility] AST 37 0 - 37 U/L [facility] ALT 32 0 - 40 U/L [facility] GLOBULIN 3.1 1 - 4.8 g/dL [facility] EGFR 98 >59 mL/min/1.7 3m2 [facility] Comment:Estimated glomerular filtration rate calculated using the CKD-EPI refit equation. ANION GAP 18 10 - 20 mmol/L [facility] Blood 01/30/2021 12:1 8 PM EST 01/30/2021 12:28 PM EST us Lori Goldberg SUPPLIER QUALITY ENGINEER LAB BLOOD BKR ORDERABLE S Final Result Performing Organization Address City/State/[facility] Co de Phone Number [facility] [address] [place] [address] * Hepatitis B surface antibody (01/30/2021 12:18 PM EST) HBV SURFACE ANTIBODY Positive [facility] Comment: Unvaccinated: Negative Vaccinated: Positive Blood 01/30/2021 12:1 8 PM EST 01/30/2021 12:28 PM EST Lori Goldberg SUPPLIER QUALITY ENGINEER LAB BLOOD BKR ORDERABLE S Final Result Performing Organization Address City/[facility]/ZIP Co de Phone Number [address] [address] * (ABNORMAL) HEPATITIS A ANTIBODY, TOTAL (01/30/2021 12:18 PM EST) [facility] HAV TOTAL AB Reactive(A ) NON-REACTI [facility] Blood 01/30/2021 12:1 8 PM EST 01/30/2021 12:28 PM EST Lori Goldberg SUPPLIER QUALITY ENGINEER LAB BLOOD BKR ORDERABLE S Final Result Performing Organization Address [facility] Co de Phone Number [address] [address] * Hepatitis C viral load (PCR) (01/30/2021 12:18 PM EST) [facility] HCV RNA DETECT/QNT Undetected Undetected IU/mL [facility] Comment: (NOTE) Result in log IU/mL is Undetected. ADDITIONAL INFORMATION The quantification range of this assay is 15 to 100,000,000 IU/mL (1.18 log to 8.00 log IU/mL). Testing was performed using the wong HCV test ([employer] with the wong 6800 System. Blood (Blood) 01/30/2021 12: 18 PM EST 01/30/2021 12:28 PM EST Lori Goldberg SUPPLIER QUALITY ENGINEER LAB BLOOD BKR ORDERABLE S Final Result Performing Organization Address [facility] Co de Phone Number [facility] LAB MED/PATH [facility] [address] [place] [address] * Hepatitis C antibody, qualitative (01/30/2021 12:18 PM EST) [facility] HCV NON-REACTIV E NON-REACTI [facility] Blood 01/30/2021 12:1 8 PM EST 01/30/2021 12:28 PM EST us Lori Goldberg SUPPLIER QUALITY ENGINEER LAB BLOOD BKR ORDERABLE S Final Result Performing Organization Address [facility]/ZIP Co de Phone Number [address] [address] * Hepatitis B core antibody, total (01/30/2021 12:18 PM EST) HEP B CORE AB, TOT NON-REACTI VE NON-REACTI VE [facility] Blood 01/30/2021 12:1 8 PM EST 01/30/2021 12:28 PM EST us Lori Goldberg SUPPLIER QUALITY ENGINEER LAB BLOOD BKR ORDERABLE S Final Result Performing Organization Address [facility]/ZIP Co de Phone Number [address] [address] * HIV-1/2 antigen/antibody (01/30/2021 12:18 PM EST) HIV-1/2 Antigen/Antibo dy NON-REACTI VE NON-REACTI VE [facility] Blood 01/30/2021 12:1 8 PM EST 01/30/2021 12:28 PM EST us Lori Goldberg SUPPLIER QUALITY ENGINEER LAB BLOOD BKR ORDERABLE S Final Result Performing Organization Address [facility]/ZIP Co de Phone Number [address] [address] * (ABNORMAL) GGT (Gamma glutamyl transferase) (01/30/2021 12:18 PM EST) GGT 48(H) 7 - 33 U/L [facility] Blood 01/30/2021 12:1 8 PM EST 01/30/2021 12:28 PM EST us Lori Goldberg SUPPLIER QUALITY ENGINEER LAB BLOOD BKR ORDERABLE S Final Result [facility] [address] [place] [address] * (ABNORMAL) CBC and differential (01/30/2021 12:18 PM EST) WBC 6.41 4.00 - 11.00 K/uL [facility] RBC 5.03 3.72 - 5.30 M/uL [facility] HGB 14.6 10.6 - 15.5 g/dL [facility] HCT 42.9 32.0 - 45.0 % [facility] PLT 324 140 - 430 K/uL [facility] MCV 85.3 78.0 - 97.0 fL [facility] MCH 29.0 25.0 - 33.0 pg [facility] MCHC 34.0 32.0 - 36.0 g/dL [facility] RDW 12.9 11.0 - 16.0 % [facility] MPV 10.5 8.4 - 12.8 fl [facility] NRBC 0.00 0 /100 WBCs [facility] ABSOLUTE NRBC 0.00 0 K/uL [facility] DIFF METHOD Auto [facility] NEUTS 54.2 43.0 - 75.0 % [facility] LYMPHS 34.5 18.2 - 47.4 % [facility] MONOS 5.5 4.00 - 11.00 % [facility] EOS 3.6 0.0 - 8.0 % [facility] BASOS 1.7 0.0 - 2.0 % [facility] Granulocytes, immature (%) 0.5 0.0 - 0.9 % [facility] ABSOLUTE NEUTS 3.48 1.80 - 7.70 K/uL [facility] ABSOLUTE LYMPHS 2.21 1.00 - 3.10 K/uL [facility] ABSOLUTE MONOS 0.35 0.20 - 0.80 K/uL [facility] ABSOLUTE EOS 0.23 0.00 - 0.80 K/uL [facility] ABSOLUTE BASOS 0.11(H) 0.00 - 0.09 K/uL [facility] Granulocytes, immature 0.03 0.00 - 0.05 K/uL [facility] Blood 01/30/2021 12:1 8 PM EST 01/30/2021 12:28 PM EST us Lori Goldberg SUPPLIER QUALITY ENGINEER LAB BLOOD BKR ORDERABLE S Final Result Performing Organization Address City/State/[facility] Co de Phone Number [facility] [address] [place] [address] documented in this encounter Visit Diagnoses Diagnosis Opioid dependence with opioid-induced disorder- Primary documented in this encounter Additional Health Concerns Infection Onset Date Last Indicated Resolved Time CoV-Risk 03/31/2024 03/31/2024 04/11/2024 1:24 AM EST documented as of this encounter Care Teams Radio Antenna Installer Relationship Specialty Start Date End Date Edwige Chang MD [address] [place] [address] [email or web address] PCP - General Family Medicine 08/20/20 02/05/21 Pcp, Unknown PCP - General 02/06/21 02/06/21 Edwige Chang MD [address] [place] [address] [email or web address] PCP - General Family Medicine 02/07/21 09/16/23 Edwige Chang MD [address] [place] [address] PCP - General Family Medicine 09/17/23 Edwige Chang MD [address] [place] [address] [email or web address] Family Medicine 02/06/21 documented as of this encounter Additional Source Comments The information contained in this document represents components of the legal health record. It is not the complete legal health record.[facility]
--- OUTSIDE RECORDS SUMMARY | 2024-12-24 18:41 | XMS_ITS | Encounter Summary ---
Author Organization [employer] Address [address] [place] [address] [address] [place] [address] Care Team Providers Care Aligning Inspector Name Role Phone AmaliaPreeti DIE SET UP WORKER Unavailable Unavailable Edwige Chang MD Primary Care Provider [phone] Juana Huggins Unavailable Unavailable Charli Saunders BEEF BONER Unavailable [phone] Unavailable Ren Lopez Unavailable Kameron Echols Unavailable Encounter Details Date Type Department Care Team (Late st Contact Info) Description 09/16/2023 Orders Only [facility] [address] [place], [place] [phone] Edwige Chang MD [address] [place] [address] Social History Tobacco Use Types Packs/Day Years [...] 6:30 PM EDT Sexual Orientation Straight 08/29/2023 6 :30 PM EDT documented as of this encounter [...] documented as of this encounter Care Teams Aligning Inspector Relationship Specialty Start Date End Date Edwige Chang MD [address] [place] [address] PCP - General Family Medicine 01/17/22 Preeti Holland FNP Family Medicine 12/08/21 Juana Huggins Health Navigator Case Management 02/06/22 Charli Saunders LCSW Building Certifier Behavioral Health 09/09/24 12/21/24 Keri Souht Building Certifier Behavioral Health 09/09/24 12/14/24 Ren Lopez Staff Mine Warfare Officer 12/14/24 12/16/24 Kameron Echols 12/18/24 documented as of this encounter
--- OUTSIDE RECORDS SUMMARY | 2024-12-24 18:41 | XMS_ITS | Encounter Summary ---
Author Organization [employer] Address [address] [place] [address] 7t [place] [address] Care Team Providers Care Spool Cleaner Hand Name Role Phone Amalia Preeti CYBER SECURITY MANAGER Unavailable Unavailable Edwige Chagn MD Primary Care Provider [phone] Juana Huggins Unavailable Unavailable Charli Saunders LCSW Unavailable [phone] Keri South Unavailable Ren Lopez Unavailable Kameron Echols Unavailable Encounter Details Date Type Department Care Team (Late st Contact Info) Description 09/05/2023 Telephone [facility] MEDICAL [address] [place] [address] Eladia Muhammad, RN Social History Tobacco Use [...] EDT Received a call from Ginny at [facility] pt has an upcoming appt. There [...] documented as of this encounter Care Teams Spool Cleaner Hand Relationship Specialty Start Date End Date Edwige Chang MD [address] [place] [phone] PCP - General Family Medicine 01/17/22 Preeti Holland FNP Family Medicine 12/08/21 Juana Huggins Health Navigator Case Management 02/06/22 Charli Saunders LCSW Ledger Poster Behavioral Health 09/09/24 12/21/24 Keri South Ledger Poster Behavioral Health 09/09/24 12/14/24 Ren Lopez Artist Blacksmith 12/14/24 12/16/24 Kameron Echols 12/18/24 documented as of this encounter
--- OUTSIDE RECORDS SUMMARY | 2024-12-24 18:41 | XMS_ITS | Clinical Summary ---
Author Organization [employer] Address [address] [facility] 7t [place] [address] Care Team Providers Care Racing Driver Name Role Phone Preeti Holland Unavailable Unavailable Edwige Chang MD Primary Care Provider [phone] Juana Huggins Unavailable Unavailable Kameron Echols Unavailable Allergies Active Allergy Reactions Criticality Noted [...] disorder, current episode manic with psychotic symptoms ([facility]) ([facility]) Take 1 tablet (2 mg) by mouth if needed in the morning, at noon, and at bedtime for anxiety for up to 14 days. 42 tablet 4 Active Additional Information Patient not taking.Reported on 07/13/2024 topiramate (Topamax) 25 MG tabletIndication s:Bipolar affective disorder, current episode manic with psychotic symptoms (CMS/[facility]) (HCC) Take 1 tablet (25 mg) by [...] 11/18/2023 Severe obesity (BMI 35.0-39.9) with comorbidity ([facility]) 11/18/2023 Tinea pedis 11/18/2023 Wheezing 11/18/2023 Post [...] 07/26/2022 Anxiety 04/10/2022 Cocaine abuse in remission ([facility]) 04/10/2022 Assessment & Plan (06/04/2022 9:15 AM EDT): Clean since Jan 13. 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 ([facility]) 04/10/2022 History of substance abuse ([facility]) 04/10/2022 Impaired fasting glucose 04/10/2022 Mixed hyperlipidemia 04/10/2022 Psychosis ([facility]) 04/10/2022 Schizoaffective disorder, bipolar type ([facility]) 04/10/2022 Housing instability after recent homelessness Assessment & Plan (06/04/2022 9:16 AM EDT): See HPI Bipolar affective disorder, current episode manic with psychotic symptoms ([facility]) 08/29/2021 Assessment & Plan (06/04/2022 9:14 AM EDT): Extremely poor insight and judgement. I cannot follow her train of thought. Recent hospitalization. Has 3 children, grown, no custody. Partner has 2 kids, no custody. Wants to have her BTL reversed. Makes statements like I got at [employer] . I tried to give 2 weeks notice, but they wanted it in writing, but I didn't have a pen. . Jumps from subject to subject. Increasing olanzapine. Type II or unspecified type diabetes mellitus with renal manifestations, uncontrolled(250.42) ([facility]) 04/11/2021 Schizoaffective disorder, depressive type ([facility]/ [facility]) 04/11/2021 Pre-diabetes 03/30/2021 Primary insomnia 03/30/2021 Mild intermittent asthma 08/31/2019 Opioid dependence in remission ([facility]) 020 Assessment & Plan (06/04/2022 9:15 AM EDT): Reports being clean since Jan 13. Recurrent major depressive disorder, in remissio n 08/31/2019 Tobacco dependence syndrome 08/31/2019 Resolved Problems Problem Noted Date Diagnosed Date Resolved Date Bipolar disorder, curr episo de mixed, severe, w/o psychotic features (CMS/HCC) 04/10/2022 023 Complex posttraumatic stress disorder 08/31/2019 06/04/2022 Encounters Date Type Department Care Team Description 12/21/2024 [facility]reach [facility] [address] [place] [address] Kameron Echols c3 care management 12/21/2024 [facility] [address] [place] [address] Charli Saunders LCSW 12/18/2024 Telephone [facility] [address] [place], [place] [phone] Bill Reddy DMD 12/18/2024 [facility] [address] [place] [address] Kameron Echols c3 care management 12/14/2024 [facility] [address] [place] [address] Charli Saunders LCSW 12/10/2024 [facility] [address] [place] [address] Charli Saunders LCSW 12/09/2024 [facility] [address] [place] [address] Charli Saunders LCSW 12/09/2024 [facility] [address] [place] [address] Kameron Echols 12/08/2024 [facility] [address] [place] [address] Charli Saunders LCSW 12/07/2024 [facility] [address] [place] [address] Charli Saunders LCSW 12/02/2024 [facility] [address] [place] [address] South, Keri 12/01/2024 [facility] [address] [phone] Charli Saunders LCSW 11/25/2024 [facility] [address] [place] [address] South, Keri 11/25/2024 [facility] [address] [place] [address] South, Keri 11/25/2024 [facility] [address] [place] [address] Charli Saunders LCSW 11/24/2024 [facility] [address] [place] [address] South, Keri 11/24/2024 [facility] [address] [place] [address] South, Keri 11/19/2024 [facility] [address] [place] [address] South, Keri 11/19/2024 [facility] [address] [place] [address] South, Keri 11/19/2024 [facility] [address] [place] [address] South, Keri 11/18/2024 [facility] [address] [place] [address] South, Keri 11/17/2024 [facility] [address] [place] [address] Charli Saunders LCSW 11/17/2024 [facility] [address] [place] [address] SouthMai navaszy 11/12/2024 [facility] [address] [place] [address] South, Keri 11/11/2024 [facility] [address] [place] [address] Charli Saunders LCSW 11/04/2024 [facility] [address] [place] [address] SouthKeri navas 11/03/2024 [facility] [address] [place] [address] Charli Saunders LCSW 10/28/2024 [facility] [address] [place] [address] SouthKeri wilks 10/27/2024 [facility] [address] [place] [address] Charli Saunders LCSW 10/22/2024 [facility] [address] [place] [address] SouthKeri wilks 10/22/2024 [facility] [address] [place] [address] May Murphy LICSW 10/21/2024 [facility] [address] [place] [address] May Murphy LICSW 10/20/[address] [phone] Edwige Chang MD PT-1 10/16/2024 [facility] [address] [place] [address] South, Keri 10/14/2024 [facility] [address] [place] [address] Charli Saunders LCSW 10/08/2024 [facility] [address] [place] [address] South, Keri 10/07/2024 [facility] [address] [place] [address] South, Keri 10/06/2024 [facility] [address] [place] [address] Charli Saunders LCSW 10/01/2024 [facility] [address] [place] [address] SouthKeri wilks 09/30/2024 [facility] [address] [place] [address] Alla Willoughby 09/29/2024 [facility] [address] [place] [address] Charli Saunders LCSW 09/29/2024 [facility] [address] [place] [address] South, Keri 09/24/2024 [facility] [address] [place] [address] South, Keri 09/24/2024 [facility] [address] [place] [address] South, Keri 09/24/2024 [facility] [address] [place] [address] South, Keri 09/23/2024 [facility] [address] [place] [phone] Charli Saunders LCSW from Last 3 Months [...] a test for HCV RNA (test code 57894) is suggested. For additional information please refer to http://education.[employer]faq/DVN28x4 (This link is being provided for informational/ educational purposes only.) 10/31/2021 10:5 0 AM EDT Levar Herrera MD HISTORICAL/NON ORDERABLE LABS Final Result Performing Organization Address [facility] Co de Phone Number [facility] [address] [place] [address], * HIV 1/2 ANTIGEN/ANTIBODY,FOURTH GENERATION W/RFL (10/31/2021 [...] purpose. For additional information please refer to http://education.[employer]/faq/DQV928 (This link is being provided for informational/ educational purposes only.) The performance of this assay has not been clinically validated in patients less than 2 years old. 10/31/2021 10:5 0 AM EDT Levar Herrera MD LAB BLOOD ORDERABLES Final Res ult Performing Organization Address [facility] Co de Phone Number [facility] [address] [place] [address], * (ABNORMAL) -Hemoglobin A1C w/Est Glucose (07/19/2021 2:11 PM EDT) Hemoglobin A1c 6.2(H) (4.0-5.6) % [facility] Comment: MONITORING: In known diabetic patients, hemoglobin A1c targets should be discussed with health care provider. DIAGNOSTIC USE: The [place] [employer] (ADA) and the World Health [...] [facility] [address] from Last 3 Months or Most Recently Relevant to Health Maintenance Insurance Path.To C3 Path.To C3 Care Teams Racing Driver Relationship Specialty Start Date End Date Edwige Chang MD [address] [place] [id number] PCP - General Family Medicine 01/17/22 Preeti Holland FNP Family Medicine 12/08/21 Juana Huggins Health Navigator Case Management 02/06/22 Kameron Echols 12/18/24
--- OUTSIDE RECORDS SUMMARY | 2024-12-24 18:41 | XMS_ITS | Encounter Summary ---
Author Organization [employer] Address [address] [place] [address] 7t [place] [address] Care Team Providers Care Mold Release Worker Name Role Phone AmaliaPreeti CRACKING AND FANNING MACHINE OPERATOR Unavailable Unavailable Edwige Chang MD Primary Care Provider [phone] Juana Huggins Unavailable Unavailable Charli Saunders BRAZER ELECTRONIC Unavailable [phone] Keri South Unavailable Ren Lopez Unavailable Kameron Echols Unavailable Encounter Details Date Type Department Care Team (Late st Contact Info) Description 05/04/2024 Orders Only [facility] Management [address] [place], [place] [phone] Edwige Chang MD [address] [place] [address] Social History Tobacco Use Types Packs/Day Years [...] documented as of this encounter Care Teams Mold Release Worker Relationship Specialty Start Date End Date Edwige Chang MD [address] [place] [phone] PCP - General Family Medicine 01/17/22 Preeti Holland FNP Family Medicine 12/08/21 Juana Huggins Health Navigator Case Management 02/06/22 Charli Saunders LCSW Contract Associate Behavioral Health 09/09/24 12/21/24 Keri South Contract Associate Behavioral Health 09/09/24 12/14/24 Ren Lopez Outpatient Interviewing Clerk 12/14/24 12/16/24 Kameron Echols 12/18/24 documented as of this encounter
--- NOTE | 2024-12-24 19:21 | PC.NURSE ---
Assumed care at 1845. Presents with blunted affect. Observed kneeling in bed singing loudly with headphones on. Requested PRN for Anxiety. Q4 PRN Ativan order obtained by NEEL Stubbs, pending effect. Denies current pain/discomfort. Endorses +AVH of voices and demons. Denies SI/HI. Agreeable to alert staff if feeling unsafe. 15 minute safety checks ongoing. Plan of care ongoing.
[2024-12-24 22:04] LABS: Appearance Urine Clear; Glucose Urine UA Negative (Negative); PH 6.5 (5.0-9.0); Specific Gravity - Urine <= 1.005 (1.005-1.025)
[2024-12-24 22:07] LABS: Cannabinoid Screen Urine Not Detected (Not Detect)
[2024-12-24 22:08] LABS: UPreg QC Valid YES
--- NOTE | 2024-12-25 00:08 | PC.NURSE ---
Late entry 21:54 - Patient requested PRN for sleep. NEEL North made aware, order for 50mg Trazodone obtained. Patient accepted PRN, mouth checks completed. No behavioral concerns at this time. Will continue to monitor for safety.
--- NOTE | 2024-12-25 04:09 | PC.NURSE ---
Patient woke up requesting to use her phone. Was reminded of unit policy on cellphones. Patient became tearful and was observed kneeling on bed with bible and singing loudly. Requested PRN 1mg Ativan for anxiety, pending effect. Returned POD headphones. Will continue to monitor behavior and safety. 15 minute checks ongoing...
--- NOTE | 2024-12-25 07:37 | PHA.MEDREC ---
Pharmacy Consult ? Medication Reconciliation Pharmacy has reviewed the medication reconciliation done by nursing.
--- NOTE | 2024-12-25 07:40 | PC.NURSE ---
Assumed care, report received. Pt is awake, she ate breakfast and took her AM meds, she has been calm and cooperative and agrees to having an EKG done.
--- NOTE | 2024-12-25 07:42 | ECG_ITS ---
Test Reason : r/o prolonged qt Blood Pressure : */* mmHG Vent. Rate : 82 BPM Atrial Rate : 82 BPM P-R Int : 134 ms QRS Dur : 84 ms QT Int : 374 ms P-R-T Axes : 57 65 47 degrees QTcB Int : 436 ms Normal sinus rhythm Cannot rule out Anterior infarct , age undetermined Abnormal ECG When compared with ECG of 18-Dec-2024 20:52, No significant change was found Referred By: [facility] Electronically Signed By: NAYA ZAVALETA MD
[2024-12-25 08:06] LABS: Appearance Urine Clear; Glucose Urine UA Negative (Negative); PH 5.0 (5.0-9.0); Specific Gravity - Urine 1.020 (1.005-1.025); UPreg QC Valid YES
[2024-12-25 08:10] LABS: UACC Culture Trigger YES
[2024-12-25 08:14] LABS: Cannabinoid Screen Urine Not Detected (Not Detect)
[2024-12-25 09:07] VITALS: BP 102/70; PULSE 89; RESP 18; TEMP 36.2; O2SAT 100
[2024-12-25 13:33] VITALS: BMI 30.3
[2024-12-25 14:30] VITALS: BP 111/75; PULSE 81; RESP 20; TEMP 36.3; O2SAT 100
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
[2024-12-25 21:00] VITALS: BP 121/72; PULSE 80; RESP 16; TEMP 36.4; O2SAT 100
[2024-12-26 08:00] VITALS: BP 115/74; PULSE 76; RESP 18; TEMP 36.2; O2SAT 99
[2024-12-26 09:07] LABS: Alanine Aminotransferase 19 U/L (0-31); Albumin Level 4.7 g/dL (3.5-5.0); Alkaline Phosphatase 59 U/L (39-117); Anion Gap 15 (12-20); Aspartate Amino Transferase 21 U/L (5-31); Blood Urea Nitrogen 18 mg/dL (9-16); Calcium 9.9 mg/dL (8.4-10.2); Carbon Dioxide 18 mmol/L (22-29); Chloride 111 mmol/L (96-108); Creatinine Clr Calc Pharmacy 103.4; Estimated Glomerular Filt Rate > 60; Potassium 3.7 mmol/L (3.3-5.1); Sodium 140 mmol/L (135-145); Total Protein 7.6 g/dL (6.5-8.0)
--- NOTE | 2024-12-26 09:21 | HO.PSYCHPN ---
Subjective Subjective Date of Service: 12/26/24 Reason For Visit: Psychosis Decompensation Interim History: Patient seen. She reports she is feeling anxious. She is having AVH of snakes and demons. Says she came back because she was having a panic attack when she was dropped off at [facility]. Adherent to medications. She was urged not to sign a 3 day before she feels ready for DC. She said I'll stick it out. Denies SI. Visible on the milieu. Review of Systems Review of Systems Yes all other systems are reviewed and are negative Constitutional: Reports as per HPI Mental Status Exam Mental Status Exam Narrative: Appearance: [facility]. wearing headphones. Grooming/hygiene wnl. Good eye contact Attitude: cooperative Speech: Fluent and wnl in regard to volume, tone, prosody Motor activity: Calm and without any tics, tremors or dyskinesias. Steady gait Mood: better since being in the hospital Affect: somewhat anxious Thought process: goal directed and without evidence of formal thought disorder Thought content: denies SI/violent ideation. Perception:AVH. Alert/oriented in all spheres Cognition grossly intact Insight: fair Judgment: fair Diagnostics Vital Signs (24Hr): Vital Signs - 24 hr 12/25/24 14:30 12/25/24 21:00 12/26/24 08:00 Temperature 97.4 F 97.6 F 97.2 F Pulse Rate 81 80 76 Respiratory Rate 20 16 18 Blood Pressure 111/75 121/72 115/74 Pulse Oximetry 100 100 99 Oxygen Delivery Method Room Air Room Air Room Air BMI result Body Mass Index 30.3 Labs 12/24/24 16:36 12/26/24 07:57 Labs: Laboratory Results - last 48 hr 12/24/24 12/24/24 12/25/24 16:36 21:49 07:56 WBC 7.1 RBC 4.92 Hgb 12.9 Hct 38.4 MCV 78.0 L MCH 26.2 L MCHC 33.6 RDW 15.2 Plt Count 308 MPV 9.9 Immature Gran % (Auto) 0.4 Neut % (Auto) 67.9 Lymph % (Auto) 25.0 [place] % (Auto) 5.5 Eos % (Auto) 0.4 Baso % (Auto) 0.8 Lymph # (Auto) 1.8 [place] # (Auto) 0.4 Eos # (Auto) 0.0 Baso # (Auto) 0.1 Abs Immat Gran (auto) 0.03 Absolute Neuts (auto) 4.8 Absolute Nucleated RBC 0.000 Nucleated RBC % (auto) 0.0 Sodium 139 Potassium 3.9 Chloride 110 H Carbon Dioxide 20 L Anion Gap 13 BUN 14 Creatinine 0.69 Estim Creat Clear Calc 110.2 Estimated GFR > 60 Random Glucose 107 Calcium 9.8 Total Bilirubin 0.3 AST 23 ALT 24 Alkaline Phosphatase 64 Total Protein 8.2 H Albumin 5.1 H Hold Yellow Top See Note Urine Color Yellow Yellow Urine Appearance Clear Clear Urine pH 6.5 5.0 Ur Specific [place] <= 1.005 1.020 Urine Protein Negative Negative Urine Glucose (UA) Negative Negative Urine Ketones Negative Negative Urine Blood Negative Negative Urine Nitrite Negative Negative Ur Leukocyte Esterase Negative Negative Urine RBC 0-2 Urine WBC 6-10 H Ur Squamous Epith Cells 11-20 Urine Bacteria 2+ Hyaline Casts 3-5 Urine Test NEGATIVE NEGATIVE Urine Opiates Screen Not Detected Not Detected Ur Buprenorphine Scrn Not Detected Not Detected Ur Oxycodone Screen Not Detected Not Detected Urine Methadone Screen Not Detected Not Detected Urine Fentanyl Screen Not Detected Not Detected Ur Barbiturates Screen Not Detected Not Detected Ur Phencyclidine Scrn Not Detected Not Detected Ur Amphetamines Screen Not Detected Not Detected U Benzodiazepines Scrn Not Detected Not Detected Urine Cocaine Screen Not Detected Not Detected U Marijuana (THC) Screen Not Detected Not Detected Ethyl Alcohol < 10 12/26/24 07:57 WBC RBC Hgb Hct MCV MCH MCHC RDW Plt Count MPV Immature Gran % (Auto) Neut % (Auto) Lymph % (Auto) [place] % (Auto) Eos % (Auto) Baso % (Auto) Lymph # (Auto) [place] # (Auto) Eos # (Auto) Baso # (Auto) Abs Immat Gran (auto) Absolute Neuts (auto) Absolute Nucleated RBC Nucleated RBC % (auto) Sodium 140 Potassium 3.7 Chloride 111 H Carbon Dioxide 18 L Anion Gap 15 BUN 18 H Creatinine 0.74 Estim Creat Clear Calc 103.4 Estimated GFR > 60 Random Glucose 104 Calcium 9.9 Total Bilirubin 0.3 AST 21 ALT 19 Alkaline Phosphatase 59 Total Protein 7.6 Albumin 4.7 Hold Yellow Top Urine Color Urine Appearance Urine pH Ur Specific [place] Urine Protein Urine Glucose (UA) Urine Ketones Urine Blood Urine Nitrite Ur Leukocyte Esterase Urine RBC Urine WBC Ur Squamous Epith Cells Urine Bacteria Hyaline Casts Urine Test Urine Opiates Screen Ur Buprenorphine Scrn Ur Oxycodone Screen Urine Methadone Screen Urine Fentanyl Screen Ur Barbiturates Screen Ur Phencyclidine Scrn Ur Amphetamines Screen U Benzodiazepines Scrn Urine Cocaine Screen U Marijuana (THC) Screen Ethyl Alcohol Medications Medications Current Medications Acetaminophen (Acetaminophen 325 Mg Tablet) 650 mg PO Q6H PRN PRN Reason: Headache/Pain, Scale 1-10 Al Hydroxide/Mg Hydroxide (Magnesium Hydrox/Alum Hydrox 30 Ml Oral.Susp) 30 ml PO Q6H PRN PRN Reason: Heartburn/Nausea Benztropine Mesylate (Benztropine Mesylate 0.5 Mg Tablet) 0.5 mg PO BID [facility] Last Admin: 12/26/24 08:56 Dose: 0.5 mg Benztropine Mesylate (Benztropine Mesylate 0.5 Mg Tablet) 0.5 mg PO TID PRN PRN Reason: EPS Last Admin: 12/26/24 06:00 Dose: 0.5 mg Haloperidol (Haloperidol 5 Mg Tablet) 10 mg PO BID [facility] Last Admin: 12/26/24 08:56 Dose: 10 mg Haloperidol (Haloperidol 5 Mg Tablet) 5 mg PO BID PRN PRN Reason: agitation Last Admin: 12/26/24 06:00 Dose: 5 mg Hydroxyzine HCl (Hydroxyzine Hcl 25 Mg Tablet) 25 mg PO Q6H PRN PRN Reason: mild anxiety Last Admin: 12/26/24 06:00 Dose: 25 mg Magnesium Hydroxide (Milk Of Magnesia 30 Ml Oral.Susp) 30 ml PO DAILY PRN PRN Reason: Constipation Nicotine Polacrilex (Nicotine Polacrilex 2 Mg Gum) 4 mg BUCCAL Q2H PRN PRN Reason: Nicotine Cravings Quetiapine Fumarate (Quetiapine Fumarate 50 Mg Tablet) 50 mg PO BEDTIME ENRIKE Last Admin: 12/25/24 21:35 Dose: 50 mg Topiramate (Topiramate 100 Mg Tablet) 100 mg PO BEDTIME ENRIKE Last Admin: 12/25/24 21:34 Dose: 100 mg Trazodone HCl (Trazodone Hcl 50 Mg Tablet) 50 mg PO BEDTIME MRX1 PRN PRN Reason: Insomnia Last Admin: 12/25/24 21:35 Dose: 50 mg Allergies Allergies Allergy/AdvReac Type Severity Reaction Status Date / Time dog dander (DOG DANDER) Allergy Intermediate ITCHY EYES Verified 12/24/24 15:47 pollen extracts (POLLEN) Allergy Intermediate STUFFY, Verified 12/24/24 15:47 ITCHY EYES Pork/Porcine Containing Allergy Itching Verified 12/24/24 15:47 Products Assessment & Plan Assessment & Plan (1) Schizoaffective disorder, bipolar type: Status: Acute Code(s): F25.0 - Schizoaffective disorder, bipolar type (2) PTSD (post-traumatic stress disorder): Status: Acute Code(s): F43.10 - Post-traumatic stress disorder, unspecified (3) Cocaine use disorder: Status: Acute Code(s): F14.10 - Cocaine abuse, uncomplicated (4) Opioid use disorder: Status: Acute Code(s): F11.90 - Opioid use, unspecified, uncomplicated Plan Ms. Chi is a 39 yo bilingual F with h/o schizoaffective d/o bipolar type, PTSD, cocaine use d/o, opioid use d/o, and PNES who was BIBA to the [facility] after being found on the side of the road requesting to speak with Crisis, 1 day after being discharged on a 3-day from [facility]. Per CARE team assessment, she endorsed hallucinations, feeling like demons are violating her, AH of snakes hissing and feeling as if she's being raped. CBC, BMP essentially wnl. U tox negative. Pt was transferred to [facility] for tx of psychosis. Pt has an extensive trauma hx and feels like the perceptual disturbances are at least partially related to the trauma. She states that the medications that she received at were helpful and would like to continue them. Plan: Admitted to for safety and stabilization Legal status- CV 15 min safety checks Vital signs per unit standard Medical admission H&P to be completed by hospitalist Labs reviewed- unremarkable. tox screen neg. Re-start meds that pt received at recent admission- haldol 10 mg bid. Added prn 5 mg bid for agitation benztropine 0.5 mg bid. Added prn .5 mg tid for EPS quetiapine 50 mg qhs topiramate 100 mg qhs PRN trazodone 50-100 mg qhs for insomnia PRN vistaril 25 mg q6 hrs for anxiety 12/26: continue current management and treatment plan. Reason for continued inpatient stay Substantial Risk for: inability to function and rapid decompensation Time Spent With Patient Time: Total time managing care of this patient today ____ minutes.
[2024-12-26 20:00] VITALS: BP 102/71; PULSE 89; RESP 16; TEMP 36.2; O2SAT 98
[2024-12-27 08:00] VITALS: BP 106/65; PULSE 83; RESP 16; TEMP 36.3; O2SAT 100
--- NOTE | 2024-12-27 09:47 | P.PNPSI_ITS ---
Subjective Subjective Date of Service: 12/27/24 Reason For Visit: Psychosis Decompensation Interim History: Patient seen. She reports I woke up anxious and paranoid. I wanted to choke myself then I took my PRN's and it helped. Patient says she wants Ativan or Klonopin for her anxiety. She continues to report hallucinations. Denies SI. Visible on the milieu. Patient reports being homeless. I tent out in [place]. Review of Systems Review of Systems Yes all other systems are reviewed and are negative Constitutional: Reports as per [facility] Mental Status Exam Mental Status Exam Narrative: Appearance: hospital [facility]. wearing headphones. Grooming/hygiene wnl. Good eye contact Attitude: cooperative Speech: Fluent and wnl in regard to volume, tone, prosody Motor activity: Calm and without any tics, tremors or dyskinesias. Steady gait Mood: better since being in the hospital Affect: somewhat anxious Thought process: goal directed and without evidence of formal thought disorder Thought content: denies SI/violent ideation. Perception:AVH. Alert/oriented in all spheres Cognition grossly intact Insight: fair Judgment: fair Diagnostics Vital Signs (24Hr): Vital Signs - 24 hr 12/26/24 20:00 12/27/24 08:00 Temperature 97.2 F 97.3 F Pulse Rate 89 83 Respiratory Rate 16 16 Blood Pressure 102/71 106/65 Pulse Oximetry 98 100 Oxygen Delivery Method Room Air Room Air BMI result Body Mass Index 30.3 Labs 12/24/24 16:36 12/26/24 07:57 Labs: Laboratory Results - last 48 hr 12/26/24 07:57 Sodium 140 Potassium 3.7 Chloride 111 H Carbon Dioxide 18 L Anion Gap 15 BUN 18 H Creatinine 0.74 Estim Creat Clear Calc 103.4 Estimated GFR > 60 Random Glucose 104 Calcium 9.9 Total Bilirubin 0.3 AST 21 ALT 19 Alkaline Phosphatase 59 Total Protein 7.6 Albumin 4.7 TSH 1.67 Medications Medications Current Medications Acetaminophen (Acetaminophen 325 Mg Tablet) 650 mg PO Q6H PRN PRN Reason: Headache/Pain, Scale 1-10 Al Hydroxide/Mg Hydroxide (Magnesium Hydrox/Alum Hydrox 30 Ml Oral.Susp) 30 ml PO Q6H PRN PRN Reason: Heartburn/Nausea Benztropine Mesylate (Benztropine Mesylate 0.5 Mg Tablet) 0.5 mg PO TID PRN PRN Reason: EPS Last Admin: 12/26/24 06:00 Dose: 0.5 mg Benztropine Mesylate (Benztropine Mesylate 1 Mg Tablet) 1 mg PO BID [facility] Last Admin: 12/27/24 08:54 Dose: 1 mg Haloperidol (Haloperidol 5 Mg Tablet) 10 mg PO BID ENRIKE Last Admin: 12/27/24 08:53 Dose: 10 mg Haloperidol (Haloperidol 5 Mg Tablet) 5 mg PO BID PRN PRN Reason: agitation Last Admin: 12/26/24 14:00 Dose: 5 mg Hydroxyzine HCl (Hydroxyzine Hcl 25 Mg Tablet) 25 mg PO Q6H PRN PRN Reason: mild anxiety Last Admin: 12/27/24 07:36 Dose: 25 mg Magnesium Hydroxide (Milk Of Magnesia 30 Ml Oral.Susp) 30 ml PO DAILY PRN PRN Reason: Constipation Nicotine Polacrilex (Nicotine Polacrilex 2 Mg Gum) 4 mg BUCCAL Q2H PRN PRN Reason: Nicotine Cravings Quetiapine Fumarate (Quetiapine Fumarate 50 Mg Tablet) 50 mg PO BEDTIME ENRIKE Last Admin: 12/26/24 21:37 Dose: 50 mg Topiramate (Topiramate 100 Mg Tablet) 100 mg PO BEDTIME ENRIKE Last Admin: 12/26/24 21:37 Dose: 100 mg Trazodone HCl (Trazodone Hcl 50 Mg Tablet) 50 mg PO BEDTIME MRX1 PRN PRN Reason: Insomnia Last Admin: 12/26/24 21:38 Dose: 50 mg Allergies Allergies Allergy/AdvReac Type Severity Reaction Status Date / Time dog dander (DOG DANDER) Allergy Intermediate ITCHY EYES Verified 12/24/24 15:47 pollen extracts (POLLEN) Allergy Intermediate STUFFY, Verified 12/24/24 15:47 ITCHY EYES Pork/Porcine Containing Allergy Itching Verified 12/24/24 15:47 Products Assessment & Plan Assessment & Plan (1) Schizoaffective disorder, bipolar type: Status: Acute Code(s): F25.0 - Schizoaffective disorder, bipolar type (2) PTSD (post-traumatic stress disorder): Status: Acute Code(s): F43.10 - Post-traumatic stress disorder, unspecified (3) Cocaine use disorder: Status: Acute Code(s): F14.10 - Cocaine abuse, uncomplicated (4) Opioid use disorder: Status: Acute Code(s): F11.90 - Opioid use, unspecified, uncomplicated Plan Ms. Chi is a 39 yo bilingual F with h/o schizoaffective d/o bipolar type, PTSD, cocaine use d/o, opioid use d/o, and PNES who was [place] [facility] [place] being found on the side of the road requesting to speak with Crisis, 1 day after being discharged on a 3-day from [facility]. Per CARE team assessment, she endorsed hallucinations, feeling like demons are violating her, AH of snakes hissing and feeling as if she's being raped. CBC, BMP essentially wnl. U tox negative. Pt was transferred to [facility] for tx of psychosis. Pt has an extensive trauma hx and feels like the perceptual disturbances are at least partially related to the trauma. She states that the medications that she received at were helpful and would like to continue them. Plan: Admitted to for safety and stabilization Legal status- CV 15 min safety checks Vital signs per unit standard Medical admission H&P to be completed by hospitalist Labs reviewed- unremarkable. tox screen neg. Re-start meds that pt received at recent admission- haldol 10 mg bid. Added prn 5 mg bid for agitation benztropine 0.5 mg bid. Added prn .5 mg tid for EPS quetiapine 50 mg qhs topiramate 100 mg qhs PRN trazodone 50-100 mg qhs for insomnia PRN vistaril 25 mg q6 hrs for anxiety 12/26: continue current management and treatment plan. 12/27: increase Seroquel to 100 mg HS. Reason for continued inpatient stay Substantial Risk for: inability to function and rapid decompensation Time Spent With Patient Time: Total time managing care of this patient today ____ minutes.
--- NOTE | 2024-12-27 13:55 | PC.NURSE ---
Patient submitted three day notice, retracted, then re submitted.
[2024-12-27 20:42] VITALS: RESP 16
[2024-12-28 08:00] VITALS: BP 96/52; PULSE 76; RESP 16; TEMP 36.5; O2SAT 98
--- NOTE | 2024-12-28 10:58 | PC.NURSE ---
Patient retracted 3 day notice.
--- NOTE | 2024-12-28 15:57 | HO.PSYCHPN ---
Subjective Subjective Date of Service: 12/28/24 Reason For Visit: Psychosis Decompensation Subjective Notes: Conditional Voluntary Interim History: Keeping to self. pacing unit hallway while listening to music. Patient reports feeling cranky today d/t having menses. denies SI/HI/VH/AH. Was not observed responding to internal stimuli during assessment. Discussed starting on JONES; pt agreeable to Haldol decanoate. Risks/benefits reviewed; Ordered Haldol decanoate 100mg IM once. Pt retracted 3 day notice. Continue tx plan. Medication Compliance: Yes Side effects from medications: No Mental Status Exam Mental Status Exam Narrative: Pt is alert and oriented; behavior is cooperative, friendly and calm; dressed in casual attire; mood is described as cranky ; eye contact appropriate; Speech is normal rate, volume and not pressured; thought process is organized; Thought content is on tx; denies SI/HI/VH/AH. Diagnostics Vital Signs (24Hr): Vital Signs - 24 hr 12/27/24 20:42 12/28/24 08:00 Temperature 97.7 F Pulse Rate 76 Respiratory Rate 16 16 Blood Pressure 96/52 L Pulse Oximetry 98 Oxygen Delivery Method Room Air BMI result Body Mass Index 30.3 Labs 12/24/24 16:36 12/26/24 07:57 Medications Medications Current Medications Acetaminophen (Acetaminophen 325 Mg Tablet) 650 mg PO Q6H PRN PRN Reason: Headache/Pain, Scale 1-10 Al Hydroxide/Mg Hydroxide (Magnesium Hydrox/Alum Hydrox 30 Ml Oral.Susp) 30 ml PO Q6H PRN PRN Reason: Heartburn/Nausea Benztropine Mesylate (Benztropine Mesylate 0.5 Mg Tablet) 0.5 mg PO TID PRN PRN Reason: EPS Last Admin: 12/26/24 06:00 Dose: 0.5 mg Benztropine Mesylate (Benztropine Mesylate 1 Mg Tablet) 1 mg PO BID ENRIKE Last Admin: 12/28/24 09:09 Dose: 1 mg Haloperidol (Haloperidol 5 Mg Tablet) 10 mg PO BID ENRIKE Last Admin: 12/28/24 09:09 Dose: 10 mg Haloperidol (Haloperidol 5 Mg Tablet) 5 mg PO BID PRN PRN Reason: agitation Last Admin: 12/28/24 11:45 Dose: 5 mg Hydroxyzine HCl (Hydroxyzine Hcl 25 Mg Tablet) 25 mg PO Q6H PRN PRN Reason: mild anxiety Last Admin: 12/28/24 06:29 Dose: 25 mg Magnesium Hydroxide (Milk Of Magnesia 30 Ml Oral.Susp) 30 ml PO DAILY PRN PRN Reason: Constipation Nicotine Polacrilex (Nicotine Polacrilex 2 Mg Gum) 4 mg BUCCAL Q2H PRN PRN Reason: Nicotine Cravings Quetiapine Fumarate (Quetiapine Fumarate 100 Mg Tablet) 100 mg PO BEDTIME ENRIKE Last Admin: 12/27/24 20:34 Dose: 100 mg Topiramate (Topiramate 100 Mg Tablet) 100 mg PO BEDTIME ENRIKE Last Admin: 12/27/24 20:35 Dose: 100 mg Trazodone HCl (Trazodone Hcl 50 Mg Tablet) 50 mg PO BEDTIME MRX1 PRN PRN Reason: Insomnia Last Admin: 12/27/24 20:35 Dose: 50 mg Allergies Allergies Allergy/AdvReac Type Severity Reaction Status Date / Time dog dander (DOG DANDER) Allergy Intermediate ITCHY EYES Verified 12/24/24 15:47 pollen extracts (POLLEN) Allergy Intermediate STUFFY, Verified 12/24/24 15:47 ITCHY EYES Pork/Porcine Containing Allergy Itching Verified 12/24/24 15:47 Products Assessment & Plan Assessment & Plan (1) Schizoaffective disorder, bipolar type: Status: Acute Code(s): F25.0 - Schizoaffective disorder, bipolar type (2) PTSD (post-traumatic stress disorder): Status: Acute Code(s): F43.10 - Post-traumatic stress disorder, unspecified (3) Cocaine use disorder: Status: Acute Code(s): F14.10 - Cocaine abuse, uncomplicated (4) Opioid use disorder: Status: Acute Code(s): F11.90 - Opioid use, unspecified, uncomplicated Plan Ms. Chi is a 39 yo bilingual F with h/o schizoaffective d/o bipolar type, PTSD, cocaine use d/o, opioid use d/o, and PNES who was BIBA to the [facility] after being found on the side of the road requesting to speak with Crisis, 1 day after being discharged on a 3-day from [facility]. Per CARE team assessment, she endorsed hallucinations, feeling like demons are violating her, AH of snakes hissing and feeling as if she's being raped. CBC, BMP essentially wnl. U tox negative. Pt was transferred to [facility] for tx of psychosis. Pt has an extensive trauma hx and feels like the perceptual disturbances are at least partially related to the trauma. She states that the medications that she received at [facility] were helpful and would like to continue them. Plan: Admitted to for safety and stabilization Legal status- CV 15 min safety checks Vital signs per unit standard Medical admission H&P to be completed by hospitalist Labs reviewed- unremarkable. tox screen neg. Re-start meds that pt received at recent [facility] admission- haldol 10 mg bid. Added prn 5 mg bid for agitation benztropine 0.5 mg bid. Added prn .5 mg tid for EPS quetiapine 50 mg qhs topiramate 100 mg qhs PRN trazodone 50-100 mg qhs for insomnia PRN vistaril 25 mg q6 hrs for anxiety 12/26: continue current management and treatment plan. 12/27: increase Seroquel to 100 mg HS. 12/28: Keeping to self. pacing unit hallway while listening to music. Patient reports feeling cranky today d/t having menses. denies SI/HI/VH/AH. Was not observed responding to internal stimuli during assessment. Discussed starting on JONES; pt agreeable to Haldol decanoate. Risks/benefits reviewed; Ordered Haldol decanoate 100mg IM once. Pt retracted 3 day notice. Continue tx plan. Patient educated on: diagnosis and medication risk/benefits Reason for continued inpatient stay Substantial Risk for: med/psych decompensation Time Spent With Patient Time: Total time managing care of this patient today _20___ minutes.
[2024-12-28 19:51] VITALS: BP 101/66; PULSE 77; RESP 18; TEMP 36.7; O2SAT 97
[2024-12-29 08:00] VITALS: BP 111/58; PULSE 83; RESP 16; TEMP 36.2; O2SAT 100
--- NOTE | 2024-12-29 16:08 | HO.PSYCHPN ---
Subjective Subjective Date of Service: 12/29/24 Reason For Visit: Psychosis Decompensation Subjective Notes: Conditional Voluntary Interim History: Keeping to self. pacing unit hallway while listening to music. medication compliant. Patient reports feeling okay today; denies any side effects from receiving Haldol decanoate IM yesterday. denies SI/HI/VH/AH. Patient reports she is interested in being connected with [facility]; home health care social worker aware. Continue tx plan. Medication Compliance: Yes Side effects from medications: No Attending Groups: No Mental Status Exam Mental Status Exam Narrative: Pt is alert and oriented; behavior is cooperative, friendly and calm; dressed in casual attire; mood is described as okay ; eye contact appropriate; Speech is normal rate, volume and not pressured; thought process is organized; Thought content is on tx; denies SI/HI/VH/AH. Diagnostics Vital Signs (24Hr): Vital Signs - 24 hr 12/28/24 19:51 12/29/24 08:00 Temperature 98.1 F 97.2 F Pulse Rate 77 83 Respiratory Rate 18 16 Blood Pressure 101/66 111/58 L Pulse Oximetry 97 100 Oxygen Delivery Method Room Air Room Air BMI result Body Mass Index 30.3 Labs 12/24/24 16:36 12/26/24 07:57 Medications Medications Current Medications Acetaminophen (Acetaminophen 325 Mg Tablet) 650 mg PO Q6H PRN PRN Reason: Headache/Pain, Scale 1-10 Al Hydroxide/Mg Hydroxide (Magnesium Hydrox/Alum Hydrox 30 Ml Oral.Susp) 30 ml PO Q6H PRN PRN Reason: Heartburn/Nausea Benztropine Mesylate (Benztropine Mesylate 0.5 Mg Tablet) 0.5 mg PO TID PRN PRN Reason: EPS Last Admin: 12/26/24 06:00 Dose: 0.5 mg Benztropine Mesylate (Benztropine Mesylate 1 Mg Tablet) 1 mg PO BID ENRIKE Last Admin: 12/29/24 08:11 Dose: 1 mg Haloperidol (Haloperidol 5 Mg Tablet) 10 mg PO BID ENRIKE Last Admin: 12/29/24 08:12 Dose: 10 mg Haloperidol (Haloperidol 5 Mg Tablet) 5 mg PO BID PRN PRN Reason: agitation Last Admin: 12/29/24 15:38 Dose: 5 mg Hydroxyzine HCl (Hydroxyzine Hcl 25 Mg Tablet) 25 mg PO Q6H PRN PRN Reason: mild anxiety Last Admin: 12/29/24 12:59 Dose: 25 mg Magnesium Hydroxide (Milk Of Magnesia 30 Ml Oral.Susp) 30 ml PO DAILY PRN PRN Reason: Constipation Nicotine Polacrilex (Nicotine Polacrilex 2 Mg Gum) 4 mg BUCCAL Q2H PRN PRN Reason: Nicotine Cravings Quetiapine Fumarate (Quetiapine Fumarate 100 Mg Tablet) 100 mg PO BEDTIME ENRIKE Last Admin: 12/28/24 21:21 Dose: 100 mg Topiramate (Topiramate 100 Mg Tablet) 100 mg PO BEDTIME ENRIKE Last Admin: 12/28/24 21:22 Dose: 100 mg Trazodone HCl (Trazodone Hcl 50 Mg Tablet) 50 mg PO BEDTIME MRX1 PRN PRN Reason: Insomnia Last Admin: 12/27/24 20:35 Dose: 50 mg Allergies Allergies Allergy/AdvReac Type Severity Reaction Status Date / Time dog dander (DOG DANDER) Allergy Intermediate ITCHY EYES Verified 12/24/24 15:47 pollen extracts (POLLEN) Allergy Intermediate STUFFY, Verified 12/24/24 15:47 ITCHY EYES Pork/Porcine Containing Allergy Itching Verified 12/24/24 15:47 Products Assessment & Plan Assessment & Plan (1) Schizoaffective disorder, bipolar type: Status: Acute Code(s): F25.0 - Schizoaffective disorder, bipolar type (2) PTSD (post-traumatic stress disorder): Status: Acute Code(s): F43.10 - Post-traumatic stress disorder, unspecified (3) Cocaine use disorder: Status: Acute Code(s): F14.10 - Cocaine abuse, uncomplicated (4) Opioid use disorder: Status: Acute Code(s): F11.90 - Opioid use, unspecified, uncomplicated Plan Ms. Chi is a 39 yo bilingual F with h/o schizoaffective d/o bipolar type, PTSD, cocaine use d/o, opioid use d/o, and PNES who was BIBA to the [facility] ED after being found on the side of the road requesting to speak with Crisis, 1 day after being discharged on a 3-day from [facility]. Per CARE team assessment, she endorsed hallucinations, feeling like demons are violating her, AH of snakes hissing and feeling as if she's being raped. CBC, BMP essentially wnl. U tox negative. Pt was transferred to [facility] for tx of psychosis. Pt has an extensive trauma hx and feels like the perceptual disturbances are at least partially related to the trauma. She states that the medications that she received at were helpful and would like to continue them. Plan: Admitted to for safety and stabilization Legal status- CV 15 min safety checks Vital signs per unit standard Medical admission H&P to be completed by hospitalist Labs reviewed- unremarkable. tox screen neg. Re-start meds that pt received at recent [facility] admission- haldol 10 mg bid. Added prn 5 mg bid for agitation benztropine 0.5 mg bid. Added prn .5 mg tid for EPS quetiapine 50 mg qhs topiramate 100 mg qhs PRN trazodone 50-100 mg qhs for insomnia PRN vistaril 25 mg q6 hrs for anxiety 12/26: continue current management and treatment plan. 12/27: increase Seroquel to 100 mg HS. 12/28: Keeping to self. pacing unit hallway while listening to music. Patient reports feeling cranky today d/t having menses. denies SI/HI/VH/AH. Was not observed responding to internal stimuli during assessment. Discussed starting on JONES; pt agreeable to Haldol decanoate. Risks/benefits reviewed; Ordered Haldol decanoate 100mg IM once. Pt retracted 3 day notice. Continue tx plan. 12/29: Keeping to self. pacing unit hallway while listening to music. medication compliant. Patient reports feeling okay today; denies any side effects from receiving Haldol decanoate IM yesterday. denies SI/HI/VH/AH. Patient reports she is interested in being connected with [facility]; home health care social worker aware. Continue tx plan. Patient educated on: diagnosis and medication risk/benefits Reason for continued inpatient stay Substantial Risk for: med/psych decompensation Time Spent With Patient Time: Total time managing care of this patient today _20___ minutes.
[2024-12-29 20:00] VITALS: BP 110/58; PULSE 71; RESP 16; TEMP 36.5; O2SAT 97
--- NOTE | 2024-12-30 09:02 | P.PNPSI_ITS ---
Subjective Subjective Date of Service: 12/30/24 Reason For Visit: Psychosis Decompensation Subjective Notes: Conditional Voluntary Interim History: Attending groups. joking and laughing with staff. listening to music with unit headphones. Observed praying in room at times. Patient reports feeling good today; denies SI/HI/VH/AH. Patient reports she spoke with nursing home social workerSaima, today regarding interest in being connected with [facility]. Patient to received second Haldol deconate IM tomorrow; pt aware. continue tx plan. Medication Compliance: Yes Side effects from medications: No Attending Groups: Yes Mental Status Exam Mental Status Exam Narrative: Pt is alert and oriented; behavior is cooperative, friendly and calm; dressed in casual attire; mood is described as good ; eye contact appropriate; Speech is normal rate, volume and not pressured; thought process is organized, future oriented; Thought content is on tx; denies SI/HI/VH/AH. Diagnostics Vital Signs (24Hr): Vital Signs - 24 hr 12/29/24 20:00 Temperature 97.7 F Pulse Rate 71 Respiratory Rate 16 Blood Pressure 110/58 L Pulse Oximetry 97 Oxygen Delivery Method Room Air BMI result Body Mass Index 30.3 Labs 12/24/24 16:36 12/26/24 07:57 Medications Medications Current Medications Acetaminophen (Acetaminophen 325 Mg Tablet) 650 mg PO Q6H PRN PRN Reason: Headache/Pain, Scale 1-10 Al Hydroxide/Mg Hydroxide (Magnesium Hydrox/Alum Hydrox 30 Ml Oral.Susp) 30 ml PO Q6H PRN PRN Reason: Heartburn/Nausea Benztropine Mesylate (Benztropine Mesylate 0.5 Mg Tablet) 0.5 mg PO TID PRN PRN Reason: EPS Last Admin: 12/26/24 06:00 Dose: 0.5 mg Benztropine Mesylate (Benztropine Mesylate 1 Mg Tablet) 1 mg PO BID ENRIKE Last Admin: 12/30/24 08:31 Dose: 1 mg Haloperidol (Haloperidol 5 Mg Tablet) 10 mg PO BID ENRIKE Last Admin: 12/30/24 08:32 Dose: 10 mg Haloperidol (Haloperidol 5 Mg Tablet) 5 mg PO BID PRN PRN Reason: agitation Last Admin: 12/29/24 15:38 Dose: 5 mg Hydroxyzine HCl (Hydroxyzine Hcl 25 Mg Tablet) 25 mg PO Q6H PRN PRN Reason: mild anxiety Last Admin: 12/30/24 06:51 Dose: 25 mg Magnesium Hydroxide (Milk Of Magnesia 30 Ml Oral.Susp) 30 ml PO DAILY PRN PRN Reason: Constipation Nicotine Polacrilex (Nicotine Polacrilex 2 Mg Gum) 4 mg BUCCAL Q2H PRN PRN Reason: Nicotine Cravings Quetiapine Fumarate (Quetiapine Fumarate 100 Mg Tablet) 100 mg PO BEDTIME ENRIKE Last Admin: 12/29/24 20:17 Dose: 100 mg Topiramate (Topiramate 100 Mg Tablet) 100 mg PO BEDTIME ENRIKE Last Admin: 12/29/24 20:17 Dose: 100 mg Trazodone HCl (Trazodone Hcl 50 Mg Tablet) 50 mg PO BEDTIME MRX1 PRN PRN Reason: Insomnia Last Admin: 12/29/24 20:17 Dose: 50 mg Allergies Allergies Allergy/AdvReac Type Severity Reaction Status Date / Time dog dander (DOG DANDER) Allergy Intermediate ITCHY EYES Verified 12/24/24 15:47 pollen extracts (POLLEN) Allergy Intermediate STUFFY, Verified 12/24/24 15:47 ITCHY EYES Pork/Porcine Containing Allergy Itching Verified 12/24/24 15:47 Products Assessment & Plan Assessment & Plan (1) Schizoaffective disorder, bipolar type: Status: Acute Code(s): F25.0 - Schizoaffective disorder, bipolar type (2) PTSD (post-traumatic stress disorder): Status: Acute Code(s): F43.10 - Post-traumatic stress disorder, unspecified (3) Cocaine use disorder: Status: Acute Code(s): F14.10 - Cocaine abuse, uncomplicated (4) Opioid use disorder: Status: Acute Code(s): F11.90 - Opioid use, unspecified, uncomplicated Plan Ms. Chi is a 39 yo bilingual F with h/o schizoaffective d/o bipolar type, PTSD, cocaine use d/o, opioid use d/o, and PNES who was BIBA to the [facility] ED after being found on the side of the road requesting to speak with Crisis, 1 day after being discharged on a 3-day from [facility]. Per CARE team assessment, she endorsed hallucinations, feeling like demons are violating her, AH of snakes hissing and feeling as if she's being raped. CBC, BMP essentially wnl. U tox negative. Pt was transferred to [facility] for tx of psychosis. Pt has an extensive trauma hx and feels like the perceptual disturbances are at least partially related to the trauma. She states that the medications that she received at were helpful and would like to continue them. Plan: Admitted to for safety and stabilization Legal status- CV 15 min safety checks Vital signs per unit standard Medical admission H&P to be completed by hospitalist Labs reviewed- unremarkable. tox screen neg. Re-start meds that pt received at recent admission- haldol 10 mg bid. Added prn 5 mg bid for agitation benztropine 0.5 mg bid. Added prn .5 mg tid for EPS quetiapine 50 mg qhs topiramate 100 mg qhs PRN trazodone 50-100 mg qhs for insomnia PRN vistaril 25 mg q6 hrs for anxiety 12/26: continue current management and treatment plan. 12/27: increase Seroquel to 100 mg HS. 12/28: Keeping to self. pacing unit hallway while listening to music. Patient reports feeling cranky today d/t having menses. denies SI/HI/VH/AH. Was not observed responding to internal stimuli during assessment. Discussed starting on JONES; pt agreeable to Haldol decanoate. Risks/benefits reviewed; Ordered Haldol decanoate 100mg IM once. Pt retracted 3 day notice. Continue tx plan. 12/29: Keeping to self. pacing unit hallway while listening to music. medication compliant. Patient reports feeling okay today; denies any side effects from receiving Haldol decanoate IM yesterday. denies SI/HI/VH/AH. Patient reports she is interested in being connected with [facility]; nursing home social worker aware. Continue tx plan. 12/30: Attending groups. joking and laughing with staff. listening to music with unit headphones. Observed praying in room at times. Patient reports feeling good today; denies SI/HI/VH/AH. Patient reports she spoke with nursing home social workerSaima, today regarding interest in being connected with [facility]. Patient to received second Haldol deconate IM tomorrow; pt aware. continue tx plan. Case reviewed and discussed with Dr. Baird, Dr. Bateman and Dr. Gonzales. Patient educated on: diagnosis and medication risk/benefits Reason for continued inpatient stay Substantial Risk for: med/psych decompensation Time Spent With Patient Time: Total time managing care of this patient today _20___ minutes.
[2024-12-30 20:00] VITALS: BP 121/73; PULSE 86; RESP 15; TEMP 36.2; O2SAT 100
[2024-12-31 07:00] VITALS: BMI 30.8
[2024-12-31 07:10] VITALS: BP 114/65; PULSE 75; RESP 18; TEMP 36.3; O2SAT 100
--- NOTE | 2024-12-31 14:18 | HO.PSYCHPN ---
Subjective Subjective Date of Service: 12/31/24 Reason For Visit: Psychosis Decompensation Subjective Notes: Conditional Voluntary Interim History: Attending groups. listening to music with unit headphones. Patient continues to report feeling good today; denies SI/HI/VH/AH. Per psych social worker, [facility] application was submitted; pt aware. Patient received second Haldol deconate IM today; next dose will be in 28 days; pt aware and states she plans on following up with her outpatient providers to receive IM. Patient reports she contact a skilled nursing in [place], [place] to determine if they have an open bed; she was told to call back on Saturday. continue tx plan. Medication Compliance: Yes Side effects from medications: No Attending Groups: Yes Mental Status Exam Mental Status Exam Narrative: Pt is alert and oriented; behavior is cooperative, friendly and calm; dressed in casual attire; mood is described as good ; eye contact appropriate; Speech is normal rate, volume and not pressured; thought process is organized, future oriented; Thought content is on tx/discharge; denies SI/HI/VH/AH. Diagnostics Vital Signs (24Hr): Vital Signs - 24 hr 12/30/24 20:00 12/31/24 07:10 Temperature 97.2 F 97.3 F Pulse Rate 86 75 Respiratory Rate 15 18 Blood Pressure 121/73 114/65 Pulse Oximetry 100 100 Oxygen Delivery Method Room Air Room Air BMI result Body Mass Index 30.8 Labs 12/24/24 16:36 12/26/24 07:57 Medications Medications Current Medications Acetaminophen (Acetaminophen 325 Mg Tablet) 650 mg PO Q6H PRN PRN Reason: Headache/Pain, Scale 1-10 Al Hydroxide/Mg Hydroxide (Magnesium Hydrox/Alum Hydrox 30 Ml Oral.Susp) 30 ml PO Q6H PRN PRN Reason: Heartburn/Nausea Benztropine Mesylate (Benztropine Mesylate 0.5 Mg Tablet) 0.5 mg PO TID PRN PRN Reason: EPS Last Admin: 12/31/24 06:56 Dose: 0.5 mg Benztropine Mesylate (Benztropine Mesylate 1 Mg Tablet) 1 mg PO BID ENRIKE Last Admin: 12/31/24 08:09 Dose: 1 mg Haloperidol (Haloperidol 5 Mg Tablet) 10 mg PO BID ENRIKE Last Admin: 12/31/24 08:08 Dose: 10 mg Haloperidol (Haloperidol 5 Mg Tablet) 5 mg PO BID PRN PRN Reason: agitation Last Admin: 12/31/24 06:57 Dose: 5 mg Hydroxyzine HCl (Hydroxyzine Hcl 25 Mg Tablet) 25 mg PO Q6H PRN PRN Reason: mild anxiety Last Admin: 12/31/24 06:57 Dose: 25 mg Magnesium Hydroxide (Milk Of Magnesia 30 Ml Oral.Susp) 30 ml PO DAILY PRN PRN Reason: Constipation Nicotine Polacrilex (Nicotine Polacrilex 2 Mg Gum) 4 mg BUCCAL Q2H PRN PRN Reason: Nicotine Cravings Quetiapine Fumarate (Quetiapine Fumarate 100 Mg Tablet) 100 mg PO BEDTIME ENRIKE Last Admin: 12/30/24 20:03 Dose: 100 mg Topiramate (Topiramate 100 Mg Tablet) 100 mg PO BEDTIME ENRIKE Last Admin: 12/30/24 20:02 Dose: 100 mg Trazodone HCl (Trazodone Hcl 50 Mg Tablet) 50 mg PO BEDTIME MRX1 PRN PRN Reason: Insomnia Last Admin: 12/30/24 20:02 Dose: 50 mg Allergies Allergies Allergy/AdvReac Type Severity Reaction Status Date / Time dog dander (DOG DANDER) Allergy Intermediate ITCHY EYES Verified 12/24/24 15:47 pollen extracts (POLLEN) Allergy Intermediate STUFFY, Verified 12/24/24 15:47 ITCHY EYES Pork/Porcine Containing Allergy Itching Verified 12/24/24 15:47 Products Assessment & Plan Assessment & Plan (1) Schizoaffective disorder, bipolar type: Status: Acute Code(s): F25.0 - Schizoaffective disorder, bipolar type (2) PTSD (post-traumatic stress disorder): Status: Acute Code(s): F43.10 - Post-traumatic stress disorder, unspecified (3) Cocaine use disorder: Status: Acute Code(s): F14.10 - Cocaine abuse, uncomplicated (4) Opioid use disorder: Status: Acute Code(s): F11.90 - Opioid use, unspecified, uncomplicated Plan Ms. Chi is a 39 yo bilingual F with h/o schizoaffective d/o bipolar type, PTSD, cocaine use d/o, opioid use d/o, and PNES who was [place] [facility] [place] being found on the side of the road requesting to speak with Crisis, 1 day after being discharged on a 3-day from [facility] [place]. Per CARE team assessment, she endorsed hallucinations, feeling like demons are violating her, AH of snakes hissing and feeling as if she's being raped. CBC, BMP essentially wnl. U tox negative. Pt was transferred to [facility] [place] for tx of psychosis. Pt has an extensive trauma hx and feels like the perceptual disturbances are at least partially related to the trauma. She states that the medications that she received at were helpful and would like to continue them. Plan: Admitted to for safety and stabilization Legal status- CV 15 min safety checks Vital signs per unit standard Medical admission H&P to be completed by hospitalist Labs reviewed- unremarkable. tox screen neg. Re-start meds that pt received at recent admission- haldol 10 mg bid. Added prn 5 mg bid for agitation benztropine 0.5 mg bid. Added prn .5 mg tid for EPS quetiapine 50 mg qhs topiramate 100 mg qhs PRN trazodone 50-100 mg qhs for insomnia PRN vistaril 25 mg q6 hrs for anxiety 12/26: continue current management and treatment plan. 12/27: increase Seroquel to 100 mg HS. 12/28: Keeping to self. pacing unit hallway while listening to music. Patient reports feeling cranky today d/t having menses. denies SI/HI/VH/AH. Was not observed responding to internal stimuli during assessment. Discussed starting on JONES; pt agreeable to Haldol decanoate. Risks/benefits reviewed; Ordered Haldol decanoate 100mg IM once. Pt retracted 3 day notice. Continue tx plan. 12/29: Keeping to self. pacing unit hallway while listening to music. medication compliant. Patient reports feeling okay today; denies any side effects from receiving Haldol decanoate IM yesterday. denies SI/HI/VH/AH. Patient reports she is interested in being connected with [facility]; psych social worker aware. Continue tx plan. 12/30: Attending groups. joking and laughing with staff. listening to music with unit headphones. Observed praying in room at times. Patient reports feeling good today; denies SI/HI/VH/AH. Patient reports she spoke with psych social workerSaima, today regarding interest in being connected with [facility]. Patient to received second Haldol deconate IM tomorrow; pt aware. continue tx plan. Case reviewed and discussed with Dr. Baird, Dr. Bateman and Dr. Gonzales. 12/31: Attending groups. listening to music with unit headphones. Patient continues to report feeling good today; denies SI/HI/VH/AH. Per psych social worker, [facility] application was submitted; pt aware. Patient received second Haldol deconate IM today; next dose will be in 28 days; pt aware and states she plans on following up with her outpatient providers to receive IM. Patient reports she contact a skilled nursing in [place], [place] to determine if they have an open bed; she was told to call back on Saturday. continue tx plan Patient educated on: diagnosis and medication risk/benefits Reason for continued inpatient stay Substantial Risk for: med/psych decompensation Time Spent With Patient Time: Total time managing care of this patient today _20___ minutes.
[2024-12-31 20:00] VITALS: BP 109/67; PULSE 93; RESP 16; TEMP 36.5; O2SAT 98
[2025-01-01 07:54] VITALS: BP 107/61; PULSE 75; RESP 18; TEMP 36.3; O2SAT 99
--- NOTE | 2025-01-01 14:11 | HO.PSYCHPN ---
Subjective Subjective Date of Service: 01/01/25 Reason For Visit: Psychosis Decompensation Subjective Notes: Conditional Voluntary Interim History: Patient continues to report feeling good today; patient stated, I feel good. The shot helped me a lot. It makes me feel not paranoid . Patient denies any side effects. Pt reports she has been praying and meditating a lot for coping . denies SI/HI/VH/AH. continue tx plan. Medication Compliance: Yes Side effects from medications: No Attending Groups: Yes Mental Status Exam Mental Status Exam Narrative: Pt is alert and oriented; behavior is cooperative, friendly and calm; dressed in casual attire; mood is described as good ; eye contact appropriate; Speech is normal rate, volume and not pressured; thought process is organized, future oriented; Thought content is on tx/discharge; denies SI/HI/VH/AH. Diagnostics Vital Signs (24Hr): Vital Signs - 24 hr 12/31/24 20:00 01/01/25 07:54 Temperature 97.7 F 97.4 F Pulse Rate 93 75 Respiratory Rate 16 18 Blood Pressure 109/67 107/61 Pulse Oximetry 98 99 Oxygen Delivery Method Room Air Room Air BMI result Body Mass Index 30.8 Labs 12/24/24 16:36 12/26/24 07:57 Medications Medications Current Medications Acetaminophen (Acetaminophen 325 Mg Tablet) 650 mg PO Q6H PRN PRN Reason: Headache/Pain, Scale 1-10 Al Hydroxide/Mg Hydroxide (Magnesium Hydrox/Alum Hydrox 30 Ml Oral.Susp) 30 ml PO Q6H PRN PRN Reason: Heartburn/Nausea Benztropine Mesylate (Benztropine Mesylate 0.5 Mg Tablet) 0.5 mg PO TID PRN PRN Reason: EPS Last Admin: 01/01/25 12:43 Dose: 0.5 mg Benztropine Mesylate (Benztropine Mesylate 1 Mg Tablet) 1 mg PO BID ENRIKE Last Admin: 01/01/25 08:11 Dose: 1 mg Haloperidol (Haloperidol 5 Mg Tablet) 10 mg PO BID ENRIKE Last Admin: 01/01/25 08:11 Dose: 10 mg Haloperidol (Haloperidol 5 Mg Tablet) 5 mg PO BID PRN PRN Reason: agitation Last Admin: 01/01/25 12:43 Dose: 5 mg Hydroxyzine HCl (Hydroxyzine Hcl 25 Mg Tablet) 25 mg PO Q6H PRN PRN Reason: mild anxiety Last Admin: 12/31/24 20:53 Dose: 25 mg Magnesium Hydroxide (Milk Of Magnesia 30 Ml Oral.Susp) 30 ml PO DAILY PRN PRN Reason: Constipation Nicotine Polacrilex (Nicotine Polacrilex 2 Mg Gum) 4 mg BUCCAL Q2H PRN PRN Reason: Nicotine Cravings Quetiapine Fumarate (Quetiapine Fumarate 100 Mg Tablet) 100 mg PO BEDTIME ENRIKE Last Admin: 12/31/24 20:53 Dose: 100 mg Topiramate (Topiramate 100 Mg Tablet) 100 mg PO BEDTIME ENRIKE Last Admin: 12/31/24 20:53 Dose: 100 mg Trazodone HCl (Trazodone Hcl 50 Mg Tablet) 50 mg PO BEDTIME MRX1 PRN PRN Reason: Insomnia Last Admin: 12/31/24 20:54 Dose: 50 mg Allergies Allergies Allergy/AdvReac Type Severity Reaction Status Date / Time dog dander (DOG DANDER) Allergy Intermediate ITCHY EYES Verified 12/24/24 15:47 pollen extracts (POLLEN) Allergy Intermediate STUFFY, Verified 12/24/24 15:47 ITCHY EYES Pork/Porcine Containing Allergy Itching Verified 12/24/24 15:47 Products Assessment & Plan Assessment & Plan (1) Schizoaffective disorder, bipolar type: Status: Acute Code(s): F25.0 - Schizoaffective disorder, bipolar type (2) PTSD (post-traumatic stress disorder): Status: Acute Code(s): F43.10 - Post-traumatic stress disorder, unspecified (3) Cocaine use disorder: Status: Acute Code(s): F14.10 - Cocaine abuse, uncomplicated (4) Opioid use disorder: Status: Acute Code(s): F11.90 - Opioid use, unspecified, uncomplicated Plan Ms. Chi is a 39 yo bilingual F with h/o schizoaffective d/o bipolar type, PTSD, cocaine use d/o, opioid use d/o, and PNES who [place] [facility] [place] being found on the side of the road requesting to speak with Crisis, 1 day after being discharged on a 3-day from [facility]. Per CARE team assessment, she endorsed hallucinations, feeling like demons are violating her, AH of snakes hissing and feeling as if she's being raped. CBC, BMP essentially wnl. U tox negative. Pt was transferred to [facility] for tx of psychosis. Pt has an extensive trauma hx and feels like the perceptual disturbances are at least partially related to the trauma. She states that the medications that she received at [facility] were helpful and would like to continue them. Plan: Admitted to for safety and stabilization Legal status- CV 15 min safety checks Vital signs per unit standard Medical admission H&P to be completed by hospitalist Labs reviewed- unremarkable. tox screen neg. Re-start meds that pt received at recent [facility] admission- haldol 10 mg bid. Added prn 5 mg bid for agitation benztropine 0.5 mg bid. Added prn .5 mg tid for EPS quetiapine 50 mg qhs topiramate 100 mg qhs PRN trazodone 50-100 mg qhs for insomnia PRN vistaril 25 mg q6 hrs for anxiety 12/26: continue current management and treatment plan. 12/27: increase Seroquel to 100 mg HS. 12/28: Keeping to self. pacing unit hallway while listening to music. Patient reports feeling cranky today d/t having menses. denies SI/HI/VH/AH. Was not observed responding to internal stimuli during assessment. Discussed starting on JONES; pt agreeable to Haldol decanoate. Risks/benefits reviewed; Ordered Haldol decanoate 100mg IM once. Pt retracted 3 day notice. Continue tx plan. 12/29: Keeping to self. pacing unit hallway while listening to music. medication compliant. Patient reports feeling okay today; denies any side effects from receiving Haldol decanoate IM yesterday. denies SI/HI/VH/AH. Patient reports she is interested in being connected with [facility]; addiction social worker aware. Continue tx plan. 12/30: Attending groups. joking and laughing with staff. listening to music with unit headphones. Observed praying in room at times. Patient reports feeling good today; denies SI/HI/VH/AH. Patient reports she spoke with addiction social workerSaima, today regarding interest in being connected with [facility]. Patient to received second Haldol deconate IM tomorrow; pt aware. continue tx plan. Case reviewed and discussed with Dr. Baird, Dr. Bateman and Dr. Gonzales. 12/31: Attending groups. listening to music with unit headphones. Patient continues to report feeling good today; denies SI/HI/VH/AH. Per addiction social worker, [facility] application was submitted; pt aware. Patient received second Haldol deconate IM today; next dose will be in 28 days; pt aware and states she plans on following up with her outpatient providers to receive IM. Patient reports she contact a senior care in [place], [place] to determine if they have an open bed; she was told to call back on Saturday. continue tx plan. 01/01: Patient continues to report feeling good today; patient stated, I feel good. The shot helped me a lot. It makes me feel not paranoid . Patient denies any side effects. Pt reports she has been praying and meditating a lot for coping . denies SI/HI/VH/AH. continue tx plan. Patient educated on: diagnosis and medication risk/benefits Reason for continued inpatient stay Substantial Risk for: med/psych decompensation Time Spent With Patient Time: Total time managing care of this patient today _20___ minutes.
[2025-01-01 20:00] VITALS: BP 106/60; PULSE 72; RESP 17; TEMP 36.2; O2SAT 97
[2025-01-02 07:49] VITALS: BP 105/62; PULSE 71; RESP 16; TEMP 36.2; O2SAT 100
--- NOTE | 2025-01-02 09:23 | HO.PSYCHPN ---
Subjective Subjective Date of Service: 01/02/25 Reason For Visit: Psychosis Decompensation Subjective Notes: Conditional Voluntary Interim History: Patient was seen and discussed in rounds today. Records and plans were reviewed. She is doing better. Affect is brother. Medication compliant. No side effects. PRNs have been helpful but she was asking for Ativan which I am a little reluctant to prescribe because of being a fall risk. She also was on gabapentin before and would like to resume that which may address the above complaints. I will do 100 mg t.i.d.. Review of Systems Review of Systems Yes all other systems are reviewed and are negative Mental Status Exam Mental Status Exam Narrative: In today's visit she is alert, oriented and pleasant. Normal speech. Good eye contact. Appropriate affect. No acute signs of psychosis. No AVH. Cognitively intact. No SI. Judgment is intact Diagnostics Vital Signs (24Hr): Vital Signs - 24 hr 01/01/25 20:00 01/02/25 07:49 Temperature 97.2 F 97.1 F Pulse Rate 72 71 Respiratory Rate 17 16 Blood Pressure 106/60 105/62 Pulse Oximetry 97 100 Oxygen Delivery Method Room Air Room Air BMI result Body Mass Index 30.8 Labs 12/24/24 16:36 12/26/24 07:57 Medications Medications Current Medications Acetaminophen (Acetaminophen 325 Mg Tablet) 650 mg PO Q6H PRN PRN Reason: Headache/Pain, Scale 1-10 Al Hydroxide/Mg Hydroxide (Magnesium Hydrox/Alum Hydrox 30 Ml Oral.Susp) 30 ml PO Q6H PRN PRN Reason: Heartburn/Nausea Benztropine Mesylate (Benztropine Mesylate 0.5 Mg Tablet) 0.5 mg PO TID PRN PRN Reason: EPS Last Admin: 01/01/25 12:43 Dose: 0.5 mg Benztropine Mesylate (Benztropine Mesylate 1 Mg Tablet) 1 mg PO BID ENRIKE Last Admin: 01/02/25 08:56 Dose: 1 mg Haloperidol (Haloperidol 5 Mg Tablet) 10 mg PO BID ENRIKE Last Admin: 01/02/25 08:56 Dose: 10 mg Haloperidol (Haloperidol 5 Mg Tablet) 5 mg PO BID PRN PRN Reason: agitation Last Admin: 01/01/25 12:43 Dose: 5 mg Hydroxyzine HCl (Hydroxyzine Hcl 25 Mg Tablet) 25 mg PO Q6H PRN PRN Reason: mild anxiety Last Admin: 01/01/25 18:14 Dose: 25 mg Magnesium Hydroxide (Milk Of Magnesia 30 Ml Oral.Susp) 30 ml PO DAILY PRN PRN Reason: Constipation Nicotine Polacrilex (Nicotine Polacrilex 2 Mg Gum) 4 mg BUCCAL Q2H PRN PRN Reason: Nicotine Cravings Quetiapine Fumarate (Quetiapine Fumarate 100 Mg Tablet) 100 mg PO BEDTIME ENRIKE Last Admin: 01/01/25 20:00 Dose: 100 mg Topiramate (Topiramate 100 Mg Tablet) 100 mg PO BEDTIME ENRIKE Last Admin: 01/01/25 20:00 Dose: 100 mg Trazodone HCl (Trazodone Hcl 50 Mg Tablet) 50 mg PO BEDTIME MRX1 PRN PRN Reason: Insomnia Last Admin: 01/01/25 20:00 Dose: 50 mg Allergies Allergies Allergy/AdvReac Type Severity Reaction Status Date / Time dog dander (DOG DANDER) Allergy Intermediate ITCHY EYES Verified 12/24/24 15:47 pollen extracts (POLLEN) Allergy Intermediate STUFFY, Verified 12/24/24 15:47 ITCHY EYES Pork/Porcine Containing Allergy Itching Verified 12/24/24 15:47 Products Assessment & Plan Assessment & Plan (1) Schizoaffective disorder, bipolar type: Status: Acute Code(s): F25.0 - Schizoaffective disorder, bipolar type (2) PTSD (post-traumatic stress disorder): Status: Acute Code(s): F43.10 - Post-traumatic stress disorder, unspecified (3) Cocaine use disorder: Status: Acute Code(s): F14.10 - Cocaine abuse, uncomplicated (4) Opioid use disorder: Status: Acute Code(s): F11.90 - Opioid use, unspecified, uncomplicated Plan Ms. Chi is a 39 yo bilingual F with h/o schizoaffective d/o bipolar type, PTSD, cocaine use d/o, opioid use d/o, and PNES who was BIBA to the [facility] [place] after being found on the side of the road requesting to speak with Crisis, 1 day after being discharged on a 3-day from [facility]. Per CARE team assessment, she endorsed hallucinations, feeling like demons are violating her, AH of snakes hissing and feeling as if she's being raped. CBC, BMP essentially wnl. U tox negative. Pt was transferred to [facility] for tx of psychosis. Pt has an extensive trauma hx and feels like the perceptual disturbances are at least partially related to the trauma. She states that the medications that she received at [facility] were helpful and would like to continue them. Plan: Admitted to for safety and stabilization Legal status- CV 15 min safety checks Vital signs per unit standard Medical admission H&P to be completed by hospitalist Labs reviewed- unremarkable. tox screen neg. Re-start meds that pt received at recent [facility] admission- haldol 10 mg bid. Added prn 5 mg bid for agitation benztropine 0.5 mg bid. Added prn .5 mg tid for EPS quetiapine 50 mg qhs topiramate 100 mg qhs PRN trazodone 50-100 mg qhs for insomnia PRN vistaril 25 mg q6 hrs for anxiety 12/26: continue current management and treatment plan. 12/27: increase Seroquel to 100 mg HS. 12/28: Keeping to self. pacing unit hallway while listening to music. Patient reports feeling cranky today d/t having menses. denies SI/HI/VH/AH. Was not observed responding to internal stimuli during assessment. Discussed starting on JONES; pt agreeable to Haldol decanoate. Risks/benefits reviewed; Ordered Haldol decanoate 100mg IM once. Pt retracted 3 day notice. Continue tx plan. 12/29: Keeping to self. pacing unit hallway while listening to music. medication compliant. Patient reports feeling okay today; denies any side effects from receiving Haldol decanoate IM yesterday. denies SI/HI/VH/AH. Patient reports she is interested in being connected with [facility]; social and human services assistant aware. Continue tx plan. 12/30: Attending groups. joking and laughing with staff. listening to music with unit headphones. Observed praying in room at times. Patient reports feeling good today; denies SI/HI/VH/AH. Patient reports she spoke with social and human services assistantSaima, today regarding interest in being connected with [facility]. Patient to received second Haldol deconate IM tomorrow; pt aware. continue tx plan. Case reviewed and discussed with Dr. Baird, Dr. Bateman and Dr. Gonzales. 12/31: Attending groups. listening to music with unit headphones. Patient continues to report feeling good today; denies SI/HI/VH/AH. Per social and human services assistant, [facility] application was submitted; pt aware. Patient received second Haldol deconate IM today; next dose will be in 28 days; pt aware and states she plans on following up with her outpatient providers to receive IM. Patient reports she contact a nursing home in [place], [place] to determine if they have an open bed; she was told to call back on Saturday. continue tx plan. 01/01: Patient continues to report feeling good today; patient stated, I feel good. The shot helped me a lot. It makes me feel not paranoid . Patient denies any side effects. Pt reports she has been praying and meditating a lot for coping . denies SI/HI/VH/AH. continue tx plan. 01/02:Continue current regimen and plans. Add gabapentin 100 mg t.i.d. Reason for continued inpatient stay Substantial Risk for: med/psych decompensation Time Spent With Patient Time: Total time managing care of this patient today ____ minutes.
[2025-01-02 20:00] VITALS: BP 104/56; PULSE 76; RESP 16; TEMP 36.3; O2SAT 97
[2025-01-03 08:00] VITALS: BP 114/58; PULSE 76; RESP 14; TEMP 36.7; O2SAT 99
--- NOTE | 2025-01-03 09:51 | HO.PSYCHPN ---
Subjective Subjective Date of Service: 01/03/25 Reason For Visit: Psychosis Decompensation Subjective Notes: Conditional Voluntary Interim History: Patient was seen and discussed in rounds today. Records and plans were reviewed. She states that the addition of gabapentin has been quite helpful with anxiety, sleep and pain. Attending groups. Eating and sleeping adequately. Still having some visual hallucinations. Still endorsing depression and anxiety. No complaints or side effects. No changes were made today Review of Systems Review of Systems Yes all other systems are reviewed and are negative Mental Status Exam Mental Status Exam Narrative: In today's visit she is alert, oriented and pleasant. Normal speech. Good eye contact. Appropriate affect. No acute signs of psychosis. Reports some visual hallucinations. Moves all limbs. No gait abnormalities. Cognitively intact. No SI. Judgment is intact Diagnostics Vital Signs (24Hr): Vital Signs - 24 hr 01/02/25 20:00 01/03/25 08:00 Temperature 97.3 F 98.1 F Pulse Rate 76 76 Respiratory Rate 16 14 Blood Pressure 104/56 L 114/58 L Pulse Oximetry 97 99 Oxygen Delivery Method Room Air Room Air BMI result Body Mass Index 30.8 Labs 12/24/24 16:36 12/26/24 07:57 Medications Medications Current Medications Acetaminophen (Acetaminophen 325 Mg Tablet) 650 mg PO Q6H PRN PRN Reason: Headache/Pain, Scale 1-10 Al Hydroxide/Mg Hydroxide (Magnesium Hydrox/Alum Hydrox 30 Ml Oral.Susp) 30 ml PO Q6H PRN PRN Reason: Heartburn/Nausea Benztropine Mesylate (Benztropine Mesylate 0.5 Mg Tablet) 0.5 mg PO TID PRN PRN Reason: EPS Last Admin: 01/02/25 17:15 Dose: 0.5 mg Benztropine Mesylate (Benztropine Mesylate 1 Mg Tablet) 1 mg PO BID [facility] Last Admin: 01/03/25 08:24 Dose: 1 mg Gabapentin (Gabapentin 100 Mg Capsule) 100 mg PO TID [facility] Last Admin: 01/03/25 08:24 Dose: 100 mg Haloperidol (Haloperidol 5 Mg Tablet) 10 mg PO BID [facility] Last Admin: 01/03/25 08:24 Dose: 10 mg Haloperidol (Haloperidol 5 Mg Tablet) 5 mg PO BID PRN PRN Reason: agitation Last Admin: 01/02/25 17:15 Dose: 5 mg Hydroxyzine HCl (Hydroxyzine Hcl 25 Mg Tablet) 25 mg PO Q6H PRN PRN Reason: mild anxiety Last Admin: 01/03/25 08:24 Dose: 25 mg Magnesium Hydroxide (Milk Of Magnesia 30 Ml Oral.Susp) 30 ml PO DAILY PRN PRN Reason: Constipation Nicotine Polacrilex (Nicotine Polacrilex 2 Mg Gum) 4 mg BUCCAL Q2H PRN PRN Reason: Nicotine Cravings Quetiapine Fumarate (Quetiapine Fumarate 100 Mg Tablet) 100 mg PO BEDTIME ENRIKE Last Admin: 01/02/25 21:09 Dose: 100 mg Topiramate (Topiramate 100 Mg Tablet) 100 mg PO BEDTIME ENRIKE Last Admin: 01/02/25 21:09 Dose: 100 mg Trazodone HCl (Trazodone Hcl 50 Mg Tablet) 50 mg PO BEDTIME MRX1 PRN PRN Reason: Insomnia Last Admin: 01/01/25 20:00 Dose: 50 mg Allergies Allergies Allergy/AdvReac Type Severity Reaction Status Date / Time dog dander (DOG DANDER) Allergy Intermediate ITCHY EYES Verified 12/24/24 15:47 pollen extracts (POLLEN) Allergy Intermediate STUFFY, Verified 12/24/24 15:47 ITCHY EYES Pork/Porcine Containing Allergy Itching Verified 12/24/24 15:47 Products Assessment & Plan Assessment & Plan (1) Schizoaffective disorder, bipolar type: Status: Acute Code(s): F25.0 - Schizoaffective disorder, bipolar type (2) PTSD (post-traumatic stress disorder): Status: Acute Code(s): F43.10 - Post-traumatic stress disorder, unspecified (3) Cocaine use disorder: Status: Acute Code(s): F14.10 - Cocaine abuse, uncomplicated (4) Opioid use disorder: Status: Acute Code(s): F11.90 - Opioid use, unspecified, uncomplicated Plan Ms. Chi is a 39 yo bilingual F with h/o schizoaffective d/o bipolar type, PTSD, cocaine use d/o, opioid use d/o, and PNES who was BIBA to the [facility] after being found on the side of the road requesting to speak with Crisis, 1 day after being discharged on a 3-day from [facility]. Per CARE team assessment, she endorsed hallucinations, feeling like demons are violating her, AH of snakes hissing and feeling as if she's being raped. CBC, BMP essentially wnl. U tox negative. Pt was transferred to [facility] for tx of psychosis. Pt has an extensive trauma hx and feels like the perceptual disturbances are at least partially related to the trauma. She states that the medications that she received at [facility] were helpful and would like to continue them. Plan: Admitted to for safety and stabilization Legal status- CV 15 min safety checks Vital signs per unit standard Medical admission H&P to be completed by hospitalist Labs reviewed- unremarkable. tox screen neg. Re-start meds that pt received at recent [facility] admission- haldol 10 mg bid. Added prn 5 mg bid for agitation benztropine 0.5 mg bid. Added prn .5 mg tid for EPS quetiapine 50 mg qhs topiramate 100 mg qhs PRN trazodone 50-100 mg qhs for insomnia PRN vistaril 25 mg q6 hrs for anxiety 12/26: continue current management and treatment plan. 12/27: increase Seroquel to 100 mg HS. 12/28: Keeping to self. pacing unit hallway while listening to music. Patient reports feeling cranky today d/t having menses. denies SI/HI/VH/AH. Was not observed responding to internal stimuli during assessment. Discussed starting on JONES; pt agreeable to Haldol decanoate. Risks/benefits reviewed; Ordered Haldol decanoate 100mg IM once. Pt retracted 3 day notice. Continue tx plan. 12/29: Keeping to self. pacing unit hallway while listening to music. medication compliant. Patient reports feeling okay today; denies any side effects from receiving Haldol decanoate IM yesterday. denies SI/HI/VH/AH. Patient reports she is interested in being connected with [facility]; social service liaison aware. Continue tx plan. 12/30: Attending groups. joking and laughing with staff. listening to music with unit headphones. Observed praying in room at times. Patient reports feeling good today; denies SI/HI/VH/AH. Patient reports she spoke with social service liaisonSaima, today regarding interest in being connected with [facility]. Patient to received second Haldol deconate IM tomorrow; pt aware. continue tx plan. Case reviewed and discussed with Dr. Baird, Dr. Bateman and Dr. Gonzales. 12/31: Attending groups. listening to music with unit headphones. Patient continues to report feeling good today; denies SI/HI/VH/AH. Per social service liaison, [facility] application was submitted; pt aware. Patient received second Haldol deconate IM today; next dose will be in 28 days; pt aware and states she plans on following up with her outpatient providers to receive IM. Patient reports she contact a long term in [place], [place] to determine if they have an open bed; she was told to call back on Saturday. continue tx plan. 01/01: Patient continues to report feeling good today; patient stated, I feel good. The shot helped me a lot. It makes me feel not paranoid . Patient denies any side effects. Pt reports she has been praying and meditating a lot for coping . denies SI/HI/VH/AH. continue tx plan. 01/02:Continue current regimen and plans. Add gabapentin 100 mg t.i.d. 01/03:Continue current regimen and plans Reason for continued inpatient stay Substantial Risk for: med/psych decompensation Time Spent With Patient Time: Total time managing care of this patient today ____ minutes.
[2025-01-03 20:00] VITALS: BP 106/70; PULSE 70; RESP 15; TEMP 36.6; O2SAT 99
[2025-01-04 07:59] VITALS: BP 94/65; PULSE 65; RESP 18; TEMP 36.6; O2SAT 100
--- NOTE | 2025-01-04 12:49 | P.PNPSI_ITS ---
Subjective Subjective Date of Service: 01/04/25 Reason For Visit: Psychosis Decompensation Subjective Notes: Conditional Voluntary Interim History: Active on unit. attending groups. medication compliant. Patient reports feeling good and looking forward to leaving . Patient reports she is no longer hearing voices; pt stated, the Haldol is helping with the voices ; denies SI/HI/VH/AH. She reports sleeping well. Patient plans on [facility] morning prior to discharge to see if they have an available bed. Patient reports she plans on being medication compliant and following up with outpatient providers. Medication Compliance: Yes Side effects from medications: No Attending Groups: Yes Mental Status Exam Mental Status Exam Narrative: Pt is alert and oriented; behavior is cooperative and calm; dressed in casual attire; mood is described as good ; eye contact appropriate; Speech is normal rate, volume and not pressured; thought process is organized; Thought content is on discharge; denies SI/HI/VH/AH. Diagnostics Vital Signs (24Hr): Vital Signs - 24 hr 01/03/25 20:00 01/04/25 07:59 Temperature 97.8 F 97.9 F Pulse Rate 70 65 Respiratory Rate 15 18 Blood Pressure 106/70 94/65 Pulse Oximetry 99 100 Oxygen Delivery Method Room Air Room Air BMI result Body Mass Index 30.8 Labs 12/24/24 16:36 12/26/24 07:57 Medications Medications Current Medications Acetaminophen (Acetaminophen 325 Mg Tablet) 650 mg PO Q6H PRN PRN Reason: Headache/Pain, Scale 1-10 Al Hydroxide/Mg Hydroxide (Magnesium Hydrox/Alum Hydrox 30 Ml Oral.Susp) 30 ml PO Q6H PRN PRN Reason: Heartburn/Nausea Benztropine Mesylate (Benztropine Mesylate 0.5 Mg Tablet) 0.5 mg PO TID PRN PRN Reason: EPS Last Admin: 01/02/25 17:15 Dose: 0.5 mg Benztropine Mesylate (Benztropine Mesylate 1 Mg Tablet) 1 mg PO BID [facility] Last Admin: 01/04/25 08:32 Dose: 1 mg Gabapentin (Gabapentin 100 Mg Capsule) 100 mg PO TID [facility] Last Admin: 01/04/25 08:32 Dose: 100 mg Haloperidol (Haloperidol 5 Mg Tablet) 10 mg PO BID [facility] Last Admin: 01/04/25 08:32 Dose: 10 mg Haloperidol (Haloperidol 5 Mg Tablet) 5 mg PO BID PRN PRN Reason: agitation Last Admin: 01/03/25 11:31 Dose: 5 mg Hydroxyzine HCl (Hydroxyzine Hcl 25 Mg Tablet) 25 mg PO Q6H PRN PRN Reason: mild anxiety Last Admin: 01/03/25 16:46 Dose: 25 mg Magnesium Hydroxide (Milk Of Magnesia 30 Ml Oral.Susp) 30 ml PO DAILY PRN PRN Reason: Constipation Nicotine Polacrilex (Nicotine Polacrilex 2 Mg Gum) 4 mg BUCCAL Q2H PRN PRN Reason: Nicotine Cravings Quetiapine Fumarate (Quetiapine Fumarate 100 Mg Tablet) 100 mg PO BEDTIME ENRIKE Last Admin: 01/03/25 21:17 Dose: 100 mg Topiramate (Topiramate 100 Mg Tablet) 100 mg PO BEDTIME ENRIKE Last Admin: 01/03/25 21:16 Dose: 100 mg Trazodone HCl (Trazodone Hcl 50 Mg Tablet) 50 mg PO BEDTIME MRX1 PRN PRN Reason: Insomnia Last Admin: 01/03/25 21:16 Dose: 50 mg Allergies Allergies Allergy/AdvReac Type Severity Reaction Status Date / Time dog dander (DOG DANDER) Allergy Intermediate ITCHY EYES Verified 12/24/24 15:47 pollen extracts (POLLEN) Allergy Intermediate STUFFY, Verified 12/24/24 15:47 ITCHY EYES Pork/Porcine Containing Allergy Itching Verified 12/24/24 15:47 Products Assessment & Plan Assessment & Plan (1) Schizoaffective disorder, bipolar type: Status: Acute Code(s): F25.0 - Schizoaffective disorder, bipolar type (2) PTSD (post-traumatic stress disorder): Status: Acute Code(s): F43.10 - Post-traumatic stress disorder, unspecified (3) Cocaine use disorder: Status: Acute Code(s): F14.10 - Cocaine abuse, uncomplicated (4) Opioid use disorder: Status: Acute Code(s): F11.90 - Opioid use, unspecified, uncomplicated Plan Ms. Chi is a 39 yo bilingual F with h/o schizoaffective d/o bipolar type, PTSD, cocaine use d/o, opioid use d/o, and PNES who was BIBA to the [facility] after being found on the side of the road requesting to speak with Crisis, 1 day after being discharged on a 3-day from [facility]. Per CARE team assessment, she endorsed hallucinations, feeling like demons are violating her, AH of snakes hissing and feeling as if she's being raped. CBC, BMP essentially wnl. U tox negative. Pt was transferred to [facility] for tx of psychosis. Pt has an extensive trauma hx and feels like the perceptual disturbances are at least partially related to the trauma. She states that the medications that she received at were helpful and would like to continue them. Plan: Admitted to for safety and stabilization Legal status- CV 15 min safety checks Vital signs per unit standard Medical admission H&P to be completed by hospitalist Labs reviewed- unremarkable. tox screen neg. Re-start meds that pt received at recent admission- haldol 10 mg bid. Added prn 5 mg bid for agitation benztropine 0.5 mg bid. Added prn .5 mg tid for EPS quetiapine 50 mg qhs topiramate 100 mg qhs PRN trazodone 50-100 mg qhs for insomnia PRN vistaril 25 mg q6 hrs for anxiety 12/26: continue current management and treatment plan. 12/27: increase Seroquel to 100 mg HS. 12/28: Keeping to self. pacing unit hallway while listening to music. Patient reports feeling cranky today d/t having menses. denies SI/HI/VH/AH. Was not observed responding to internal stimuli during assessment. Discussed starting on JONES; pt agreeable to Haldol decanoate. Risks/benefits reviewed; Ordered Haldol decanoate 100mg IM once. Pt retracted 3 day notice. Continue tx plan. 12/29: Keeping to self. pacing unit hallway while listening to music. medication compliant. Patient reports feeling okay today; denies any side effects from receiving Haldol decanoate IM yesterday. denies SI/HI/VH/AH. Patient reports she is interested in being connected with [facility]; social science research assistant aware. Continue tx plan. 12/30: Attending groups. joking and laughing with staff. listening to music with unit headphones. Observed praying in room at times. Patient reports feeling good today; denies SI/HI/VH/AH. Patient reports she spoke with social science research assistantSaima, today regarding interest in being connected with [facility]. Patient to received second Haldol deconate IM tomorrow; pt aware. continue tx plan. Case reviewed and discussed with Dr. Baird, Dr. Bateman and Dr. Gonzales. 12/31: Attending groups. listening to music with unit headphones. Patient continues to report feeling good today; denies SI/HI/VH/AH. Per social science research assistant, [facility] application was submitted; pt aware. Patient received second Haldol deconate IM today; next dose will be in 28 days; pt aware and states she plans on following up with her outpatient providers to receive IM. Patient reports she contact a long-term in [place], [place] to determine if they have an open bed; she was told to call back on Saturday. continue tx plan. 01/01: Patient continues to report feeling good today; patient stated, I feel good. The shot helped me a lot. It makes me feel not paranoid . Patient denies any side effects. Pt reports she has been praying and meditating a lot for coping . denies SI/HI/VH/AH. continue tx plan. 01/02:Continue current regimen and plans. Add gabapentin 100 mg t.i.d. 01/03:Continue current regimen and plans 01/04: Active on unit. attending groups. medication compliant. Patient reports feeling good and looking forward to leaving . Patient reports she is no longer hearing voices; pt stated, the Haldol is helping with the voices ; denies SI/HI/VH/AH. She reports sleeping well. Patient plans on [facility] tomorrow morning prior to discharge to see if they have an available bed. Patient reports she plans on being medication compliant and following up with outpatient providers. Patient educated on: diagnosis and medication risk/benefits Reason for continued inpatient stay Substantial Risk for: stable for discharge Time Spent With Patient Time: Total time managing care of this patient today _20___ minutes.
[2025-01-04 20:00] VITALS: RESP 16
[2025-01-05 08:00] VITALS: BP 117/56; PULSE 72; RESP 16; TEMP 36.3; O2SAT 99
--- NOTE | 2025-01-05 09:40 | P.DS_ITS ---
DS: Providers Provider Date of Service: 01/05/25 Date of admission: 12/25/24 11:46 Date of discharge: 01/05/25 Primary care physician: Unknown Physician Attending physician on admission: Ayanna Bateman Attending physician on discharge: Oren Baird Discharging clinician: Yanira Mullins DS: Diagnosis Discharge Diagnosis (1) Schizoaffective disorder, bipolar type: Status: Acute (2) PTSD (post-traumatic stress disorder): Status: Acute (3) Cocaine use disorder: Status: Acute (4) Opioid use disorder: Status: Acute DS: Medications Discharge Medications Home Medications: Previous Rx's ?Medication ?Instructions ?Recorded quetiapine 50 mg tablet 50 mg PO BEDTIME 30 days #30 tabs 12/17/24 topiramate 100 mg tablet 100 mg PO BEDTIME 30 days #3 0 tabs 12/17/24 benztropine 0.5 mg tablet 0.5 mg PO BID 30 days #60 ta bs 12/23/24 haloperidol 10 mg tablet 10 mg PO BID 30 days #60 tab s 12/23/24 Mental Status Exam Mental Status Exam Narrative: Pt is alert and oriented; behavior is cooperative and calm; dressed in casual attire; mood is described as good ; eye contact appropriate; Speech is normal rate, volume and not pressured; thought process is organized; Thought content is on discharge; denies SI/HI/VH/AH. Data Data Completed and Pending Completed studies during hospitalization [Text1]: 12/25/24 Unknown Urine clean catch - Clean Catch Midstream Urine Culture - Final DS: Summary Hospital Course Hospital Course: Ms. hCi is a 39 yo bilingual F with h/o schizoaffective d/o bipolar type, PTSD, cocaine use d/o, opioid use d/o, and PNES who was BIBA to the [facility] ED after being found on the side of the road requesting to speak with Crisis, 1 day after being discharged on a 3-day from [facility]. Per CARE team assessment, she endorsed hallucinations, feeling like demons are violating her, AH of snakes hissing and feeling as if she's being raped. CBC, BMP essentially wnl. U tox negative. Pt was transferred to [facility] for tx of psychosis. Pt reports I got side-tracked . 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 She panicked bc it reminded her of her drug use. She ended up in front of a confucianism, someone saw her 'panicking' and called the police. Describes the panic sx as seeing demons that looked like eyeballs everywhere. Feels better since being back in the hospital. She reports that the medications that she was prescribed at [facility] helped but I've been off them for one month . T/W reminded pt that she just left the hospital yesterday and asked if the meds she was just taking were helpful and she said they were. Pt denies current AH/VH Denies SI/violent ideation Endorses significant h/o trauma and frequent flashbacks. She thinks the perceptual disturbances are related to her trauma. Denies nightmares. Sleeping well. Good appetite Pt has an extensive trauma hx and feels like the perceptual disturbances are at least partially related to the trauma. She states that the medications that she received at [facility] were helpful and would like to continue them. Plan: Admitted to for safety and stabilization Legal status- CV 15 min safety checks Vital signs per unit standard Medical admission H&P to be completed by hospitalist Labs reviewed- unremarkable. tox screen neg. Re-start meds that pt received at recent [facility] admission- haldol 10 mg bid. Added prn 5 mg bid for agitation benztropine 0.5 mg bid. Added prn .5 mg tid for EPS quetiapine 50 mg qhs topiramate 100 mg qhs PRN trazodone 50-100 mg qhs for insomnia PRN vistaril 25 mg q6 hrs for anxiety increase Seroquel to 100 mg HS. Keeping to self. pacing unit hallway while listening to music. Patient reports feeling cranky today d/t having menses. denies SI/HI/VH/AH. Was not observed responding to internal stimuli during assessment. Discussed starting on JONES; pt agreeable to Haldol decanoate. Risks/benefits reviewed; Ordered Haldol decanoate 100mg IM once. Pt retracted 3 day notice. Continue tx plan. Keeping to self. pacing unit hallway while listening to music. medication compli ant. Patient reports feeling okay today; denies any side effects from receiving Haldol decanoate IM yesterday. denies SI/HI/VH/AH. Patient reports she is interested in being connected with DM; social economist aware. Continue tx plan. Attending groups. joking and laughing with staff. listening to music with unit headphones. Observed praying in room at times. Patient reports feeling good today; denies SI/HI/VH/AH. Patient reports she spoke with social economistSaima, today regarding interest in being connected with [facility]. Patient to received second Haldol deconate IM tomorrow; pt aware. continue tx plan. Case reviewed and discussed with Dr. Baird, Dr. Bateman and Dr. Gonzales. Attending groups. listening to music with unit headphones. Patient continues to report feeling good today; denies SI/HI/VH/AH. Per social economist, [facility] application was submitted; pt aware. Patient received second Haldol deconate IM today; next dose will be in 28 days; pt aware and states she plans on following up with her outpatient providers to receive IM. Patient reports she contact a long term in [place], [place] to determine if they have an open bed; she was told to call back on Saturday. continue tx plan. Patient continues to report feeling good today; patient stated, I feel good. The shot helped me a lot. It makes me feel not paranoid . Patient denies any side effects. Pt reports she has been praying and meditating a lot for coping . denies SI/HI/VH/AH. continue tx plan. Continue current regimen and plans. Add gabapentin 100 mg t.i.d. Active on unit. attending groups. medication compliant. Patient reports feeling good and looking forward to leaving . Patient reports she is no longer hearing voices; pt stated, the Haldol is helping with the voices ; denies SI/HI/VH/AH. She reports sleeping well. Patient plans on contacting [facility] tomorrow morning prior to discharge to see if they have an available bed. Patient reports she plans on being medication compliant and following up with outpatient providers. Status at Discharge Cognitive/behavioral status at discharge: Patient has insight and demonstrates good judgment in terms of wanting to pursue treatment. Patient has a safety plan that includes presenting to the closest ER or calling 911 if feeling unsafe. Functional status at discharge: independent ambulation Overall status at discharge: patient is back to baseline Time Spent with Patient Time attestation: Total time managing care of this patient today _20___ minutes. Time spent: Less than 30 minutes Discharge Plan Discharge Anticipated Discharge Date/Time: 01/05/25 11:00 Patient Disposition: Home, Self-Care Discharge Diagnosis: Schizoaffective d/o, PTSD, cocaine use d/o, opioid use d/o Referrals: Department of Mental Health ([facility]) [Other] - 1 Week Referral Note: *Please follow up with staff at [facility] regarding the application for services that was submitted on your behalf. Please call them upon discharge to provide them with your cellphone number. PCP/Med Prescriber: Dr. Chang ([facility]) [Other] - 01/06/25 Referral Note: You have to walk-in to see Dr. Chang at the [place] location on Wednesdays (9am-5pm) or Fridays (9am-3pm) or at the [place] location at [facility] ([address]) on (8:30am-3pm). Please plan to walk-in on 01/06/25. Haldol Injection at [facility] w/Dr. Chang [Other] - 01/29/25 Referral Note: Your monthly injection is due on this date; please walk-in to Dr. Chang's [place] office between the hours of 9am and 3pm to be given your next injection. [facility] [Other] - 1 Week Referral Note: *Please call the [facility] long term at the phone number listed above to inquire about bed availability each day. [facility] ([facility]) [Other] - 1 Week Referral Note: *Please follow up with the long term at the phone number listed above to check in regarding bed availability. [facility] ([facility] of Mental Health) [Other] - 1 Week Referral Note: *Please reach out to the assigned worker through [facility] to touch base. [facility] [Provider Group] - 1 Week Referral Note: 01-01-25 [facility] was added to patients chart. Please call [phone] to schedule a follow up appt within 7-10 days of discharge. No release or PCP on file. Edwige Chang MD [Physician, Medical] - 1 Week Discharge Medications: New benztropine 1 mg Tablet 1 mg PO BID 30 Days Qty: 60 0RF gabapentin 100 mg Capsule 100 mg PO TID 30 Days Qty: 90 0RF quetiapine 100 mg Tablet 100 mg PO BEDTIME 30 Days Qty: 30 0RF Continued topiramate 100 mg Tablet 100 mg PO BEDTIME 30 Days Qty: 30 0RF haloperidol 10 mg tablet 10 mg PO BID 30 Days Qty: 60 0RF Discontinued quetiapine 50 mg Tablet 50 mg PO BEDTIME 30 Days Qty: 30 0RF benztropine 0.5 mg Tablet 0.5 mg PO BID 30 Days Qty: 60 0RF Discharge Orders: Discharge Order (Routine); Ordered 01/05/25 Ordered By: Yanira Mullins Diet: Regular diet Activity on Discharge: As tolerated Stand Alone Forms: Patient Portal Discharge page, Community Support Print Language: Maltese Care Plan Goals: Maintain mood and safe behaviors Take medications as prescribed Continue to pursue sobriety Practice coping skills Continue with outpatient providers and reach out to them as needed Health Concerns: Mood stability and behaviors Sobriety Plan of Treatment: Follow up with your PCP, psychiatric provider and other outpatient providers regarding above concerns Take medications as prescribed Assessment: Patient has insight and demonstrates good judgment in terms of wanting to pursue treatment. Patient has a safety plan that includes presenting to the closest ER or calling 911 if feeling unsafe. Discharge Date/Time: 01/05/25 12:00
[2025-01-05] MEDS: Naloxone HCl Nasal TAKE HOME 4 MG SPRAY 8 MG NOSTRILALT (11:15)
== END 2025-01-05 12:00 | disposition home or self-care (01) | DRG 750 ==
LOC: HO.ED 16:49 → HO.PADLT16 12-25 11:54
PROVIDERS: Emergency Medicine; Physician Assistant; Admitting Provider Psychiatry & Neurology Psychiatry; Emergency Provider Emergency Medicine; Responsible Provider Registered Nurse; Visit Provider Psychiatry & Neurology Psychiatry
DX: F25.0 Schizoaffective disorder, bipolar type (principal); F11.90 Opioid use, unspecified, uncomplicated; F14.10 Cocaine abuse, uncomplicated; F43.10 Post-traumatic stress disorder, unspecified; Z87.891 Personal history of nicotine dependence; Z79.899 Other long term (current) drug therapy
CPT/HCPCS: 36415; 80053; 80307; 81001; 81003; 81025; 84443; 85025; 87086; 93005; 99285; J1631; S9485

== ENCOUNTER → 2024-12-25 07:42 | Outpatient (BNV) | payer MEDICAID, SELFPAY | PROVIDERS: Admitting Provider Psychiatry & Neurology Psychiatry; Emergency Provider Emergency Medicine; Visit Provider Internal Medicine Cardiovascular Disease | DX: R94.31 Abnormal electrocardiogram [ECG] [EKG] (principal); Z13.6 Encounter for screening for cardiovascular disorders | CPT/HCPCS: 93010 ==

== ENCOUNTER → 2024-12-25 11:46 | Outpatient (BNV) | payer OTHER, SELFPAY | PROVIDERS: Admitting Provider Psychiatry & Neurology Psychiatry; Emergency Provider Emergency Medicine; Visit Provider Psychiatry & Neurology Psychiatry | DX: F25.0 Schizoaffective disorder, bipolar type (principal); F14.10 Cocaine abuse, uncomplicated; F11.90 Opioid use, unspecified, uncomplicated; F43.11 Post-traumatic stress disorder, acute | CPT/HCPCS: 99231; 99232 ==

== ENCOUNTER 2025-01-28 10:22 | Emergency (ER) | payer MEDICAID, SELFPAY ==
[2025-01-28 10:40] VITALS: BP 106/73; BP 108/69; PULSE 77; PULSE 80; RESP 18; TEMP 35.7; O2SAT 100; BMI 28.2
--- NOTE | 2025-01-28 10:45 | PC.NURSE ---
patient changed over into hospital attire, states she used crack last night. patient found to have multiple medications with other peoples names on in it in her bag. ED charge and supervision made aware. pharmacy supervisor screen printing made aware of situation, ED security involved. patient belongings inventoried and stored in [facility] closet. patient states she takes other peoples medications for her mental health
--- NOTE | 2025-01-28 10:45 | PC.NURSE ---
Patient presents to the ED via EMS with complaint of dizziness. Patient stated she was up all night and took crack cocaine last night at 11pm. Stated she fell asleep on street corner. Patient changed over and belongings collected. Denies SI/HI at this time. VSS. Patient resting in bed.
--- NOTE | 2025-01-28 10:52 | PC.NURSE ---
medications with other peoples names on them were placed in the rx destroyer jug but this RN and tilt wall supervisor Niki
--- NOTE | 2025-01-28 12:03 | ECG_ITS ---
Test Reason : Pass out after cocaine use Blood Pressure : */* mmHG Vent. Rate : 76 BPM Atrial Rate : 76 BPM P-R Int : 138 ms QRS Dur : 76 ms QT Int : 410 ms P-R-T Axes : 57 69 46 degrees QTcB Int : 461 ms Normal sinus rhythm Cannot rule out Anterior infarct (cited on or before 25-Dec-2024) Abnormal ECG When compared with ECG of 25-Dec-2024 07:44, No significant change was found Referred By: Eagle Mcleod Electronically Signed By: Yony Ramos
--- NOTE | 2025-01-28 12:03 | ED.GENADULT ---
HPI - General Adult General Chief complaint: ETOH/Substance Use Stated complaint: wandering around sh, lost w no phone, sub use Time Seen by Provider: 01/28/25 11:46 Source: patient and EMS Mode of arrival: EMS Limitations: no limitations History of Present Illness ED Provider: DR. Mcleod HPI narrative: A 39-year-old female came in by ambulance after was found wandering the street patient complained of dizziness and passed out after smoked cocaine for about 30 minutes, patient declined falling down or head injury, no neck injury, no chest pain, no extremity pain. No SI, no HI, no hallucination, patient with history of mental health issue and prior mental health hospitalization Related Data Previous Rx's ?Medication ?Instructions ?Recorded topiramate 100 mg tablet 100 mg PO BEDTIME 30 days #30 tabs 12/17/24 haloperidol 10 mg tablet 10 mg PO BID 30 days #60 tabs 12/23/24 benztropine 1 mg tablet 1 mg PO BID 30 days #60 tabs 01/05/25 gabapentin 100 mg capsule 100 mg PO TID 30 days #90 caps 01/05/25 quetiapine 100 mg tablet 100 mg PO BEDTIME 30 days #30 tabs 01/05/25 Allergies Allergy/AdvReac Type Severity Reaction Status Date / Time dog dander (DOG DANDER) Allergy Intermediate ITCHY EYES Verified 01/28/25 10:43 pollen extracts (POLLEN) Allergy Intermediate STUFFY, Verified 01/28/25 10:43 ITCHY EYES Pork/Porcine Containing Allergy Itching Verified 01/28/25 10:43 Products Review of Systems Review of Systems: All other systems are reviewed and are negative Constitutional: Reports as per HPI and Reports no additional constitutional complaints Eyes: Reports as per HPI and Reports no additional eye complaints Reports system reviewed and no additional complaints, except as documented Cardiovascular: Reports as per HPI and Reports no additional cardiovascular complaints Respiratory: Reports as per HPI and Reports no additional respiratory complaints Gastrointestinal: Reports as per HPI and Reports no additional gastrointestinal complaints Genitourinary: Reports no additional female genitourinary complaints Musculoskeletal: Reports no additional musculoskeletal complaints Skin/Breast: Reports system reviewed and no additional complaints, except as docu Psychiatric: Reports no additional psychiatric complaints Endocrine: Reports no additional endocrine complaints Hematologic/Lymphatic: Reports no additional hematologic/lymphatic complaints Allergic/Immunologic: Reports no additional allergic/immunologic complaints Reports system reviewed and no additional complaints, except as documented and Reports Abnormal speech present COUNTS INCLUDE 234 BEDS AT THE [facility] Past Medical History Medical History Psychosis Schizophrenia Homicidal ideation Aggressive behavior Cocaine use disorder Opioid use disorder Generalized abdominal discomfort Medical clearance for psychiatric admission PTSD (post-traumatic stress disorder) Prediabetes Oligomenorrhea Routine medical exam Anxiety Pseudoseizures Bipolar 1 disorder, manic, moderate Social History Social History Household Members: None Household Members Other:: says has spouse but unhoused Housing: Homeless Do you presently have visiting nurse or other home services: No Alcohol intake: current Alcohol intake frequency: 0-2 drinks per day Alcohol type: hard liquor Comment: 5 Patient Tobacco Use Status: Former Tobacco user Tobacco use type: Cigarette Cigarette Packs Per Day: 1 Cigarettes Per Day: 20.0 Years Smoked: Many' e-Cigarette/Vaping Use: Former Use Second Hand Smoke Exposure: Yes (people smoke around her) Substance Use Type: Crack/Cocaine Advance Directives: No Advance Directives Information Provided: Yes service: No Sexual orientation: Straight/Heterosexual Physical Exam ED Vital Signs: Vital Signs - 24 hr 01/28/25 10:40 01/28/25 13:39 Temperature 96.3 F L Pulse Rate 77 90 Respiratory Rate 18 16 Blood Pressure 108/69 126/74 Pulse Oximetry 100 98 Oxygen Delivery Method Room Air Room Air BMI result Body Mass Index 28.2 Vital signs have been reviewed and appear to be correct. Blood pressure elevated. Heart rate normal. Respiratory rate normal. Temperature normal. Oxygen saturation normal. Appearance: Alert. Oriented X3. No acute distress. Head: Normal external exam. Normocephalic. Atraumatic. No Luis signs noted. No raccoon eyes noted Eyes: PERRLA. EOMI. Conjunctiva and sclera normal. Eyelids normal. ENT: TM's Normal. Pharynx normal. Uvula midline. Moist mucous membranes. No trismus noted. No drooling noted. No muffled voice noted. Neck: Normal inspection. Neck supple. FROM. No adenopathy. Thyroid Normal. No meningeal signs. No neck mass noted. CVS: Normal heart rate and rhythm. Heart sound normal. No murmurs noted. Pulses normal throughout. Respiratory: No respiratory distress. Painless inspiration. Breath sounds normal. No wheezes/rales/rhonchi noted. Chest nontender. No accessory muscle usage noted or decreased air movement noted. Abdomen: Soft and nontender. Bowel sounds normal in all 4 quadrants. No distention noted. No organomegaly noted. No visible injury noted. Back: No CVA tenderness. Full range of motion noted. Skin: Skin warm and dry. Normal skin color. Normal skin turgor. No rashes/lesions/lacerations noted. Extremities: No lower extremity edema. Extremities exhibit normal range of motion. Extremities nontender. Neuro: Oriented X 3. Cranial nerve exam: II-XII are grossly intact No motor deficit. No sensory deficit. Reflexes normal. Patient Orientation: Person, Place, Time and Situation, okay hygiene and grooming. Fair eye contact, attentive, no tics or tremors. Level of Consciousness: Awake, Appropriate and Alert Patient Behavior: Appropriate, Guarded, Cooperative and Anxious Mood Description: Constricted, Blunted and Apprehensive Affect Description: Constricted, Blunted and Apprehensive Patient Cognition Impaired: No Ability to Follow Directions: Excellent Speech Pattern: Clear, Appropriate and Spontaneous Speech, nonpressured, spontaneous with regular rate and rhythm, normal volume and prosody. No dysarthria. Memory Description: Intact, Immediate Intact and Short Term Intact Hallucinations: None Delusions: Not Present Thought Process: Intact Thought Content: positive for Intact, positive for Logical, denies Suicidal Ideation and denies Homicidal Ideation. Depressive Symptoms: Not present. Judgement and Insight: Limited but adequate. Course Reevaluation(s) Reevaluation #1: 39-year-old female presented after using cocaine and feeling dizzy. Unremarkable workup in the ED. Patient is asking for food with no complaints, no SI, no HI, asking for ride to go back home. Time: 14:16 Medical Decision Making Differential Diagnosis Differential Diagnoses: The differential diagnosis associated with the presentation includes (Cocaine use, heroin use, respiratory distress, electrolyte derangement, severe anemia, ACS.) Admission/Observation Consideration of admission/observation: Escalation of care including admission/observation considered Lab Data MDM Lab Attestation statement: I reviewed the patient's lab results. 01/28/25 13:17 01/28/25 13:17 Labs: Lab Results 01/28/25 Range/Units 13:17 WBC 5.1 (4.8-10.8) X10*3/uL RBC 4.39 (4.20-5.50) X10*6/uL Hgb 11.7 L (12.0-16.0) g/dl Hct 35.4 L (37.0-47.0) % MCV 80.6 (80.0-98.0) fL MCH 26.7 L (27.0-33.0) pg MCHC 33.1 (31.0-35.0) g/dl RDW 14.6 (11.0-16.0) % Plt Count 232 (160-400) X10*3/uL MPV 9.4 (9.4-12.3) fL Immature Gran % (Auto) 0.2 (0.0-0.4) % Neut % (Auto) 64.2 (45-73) % Lymph % (Auto) 24.0 (20-40) % [place] % (Auto) 6.7 (2-11) % Eos % (Auto) 3.7 (0-4) % Baso % (Auto) 1.2 (0-2) % Lymph # (Auto) 1.2 (1.2-4.9) X10*3/uL [place] # (Auto) 0.3 (0.1-1.2) X10*3/uL Eos # (Auto) 0.2 (0.0-0.4) X10*3/uL Baso # (Auto) 0.1 (0.0-0.2) X10*3/uL Abs Immat Gran (auto) 0.01 (0.00-0.03) X10*3/uL Absolute Neuts (auto) 3.3 (2.0-8.3) x10*3/uL Absolute Nucleated RBC 0.000 (0.0-0.012) X10*3/uL Nucleated RBC % (auto) 0.0 (0.0-0.2) /100WBC Sodium 140 (135-145) mmol/L Potassium 3.4 (3.3-5.1) mmol/L Chloride 106 (96-108) mmol/L Carbon Dioxide 26 (22-29) mmol/L Anion Gap 11 L (12-20) BUN 18 H (9-16) mg/dL Creatinine 0.54 (0.5-1.4) mg/dL Estim Creat Clear Calc 147.1 Estimated GFR > 60 Random Glucose 186 H (60-115) mg/dL Calcium 9.2 D (8.4-10.2) mg/dL Troponin I High Sens < 2.7 (<3.5-17.0) ng/L Independent Interpretation I performed an independent interpretation of an: EKG (Normal sinus rhythm at 76 beats per minutes, normal axis deviation, normal intervals, no ST-T changes.) Discharge Plan Discharge Clinical Impression: Substance abuse Patient Disposition: Home, Self-Care Instructions: Polysubstance Use Disorder (ED) Prescriptions: No Action topiramate 100 mg Tablet 100 mg PO BEDTIME 30 Days Qty: 30 0RF haloperidol 10 mg tablet 10 mg PO BID 30 Days Qty: 60 0RF benztropine 1 mg Tablet 1 mg PO BID 30 Days Qty: 60 0RF gabapentin 100 mg Capsule 100 mg PO TID 30 Days Qty: 90 0RF quetiapine 100 mg Tablet 100 mg PO BEDTIME 30 Days Qty: 30 0RF Referrals: Edwige Chang MD [Primary Care Provider, Medical] Print Language: Bulgarian
[2025-01-28 13:21] LABS: MANUAL DIFF FLAG NO
[2025-01-28 13:23] LABS: Hematocrit 35.4 % (37.0-47.0); Hemoglobin 11.7 g/dl (12.0-16.0); Imm Gran Abs Auto 0.01 X10*3/uL (0.00-0.03); Imm Gran Pct Auto 0.2 % (0.0-0.4); Lymphocytes Absolute Auto 1.2 X10*3/uL (1.2-4.9); Mean Corpuscular HGB Conc 33.1 g/dl (31.0-35.0); Mean Corpuscular Hemoglobin 26.7 pg (27.0-33.0); Mean Corpuscular Volume 80.6 fL (80.0-98.0); NRBC Abs Auto 0.000 X10*3/uL (0.0-0.012); NRBC Pct Auto 0.0 /100WBC (0.0-0.2); Platelet Count 232 X10*3/uL (160-400); Red Blood Count 4.39 X10*6/uL (4.20-5.50); White Blood Count 5.1 X10*3/uL (4.8-10.8)
[2025-01-28 13:35] LABS: Anion Gap 11 (12-20); Blood Urea Nitrogen 18 mg/dL (9-16); Calcium 9.2 mg/dL (8.4-10.2); Carbon Dioxide 26 mmol/L (22-29); Chloride 106 mmol/L (96-108); Creatinine Clr Calc Pharmacy 147.1; Estimated Glomerular Filt Rate > 60; Potassium 3.4 mmol/L (3.3-5.1); Sodium 140 mmol/L (135-145)
[2025-01-28 13:39] VITALS: BP 126/74; PULSE 90; RESP 16; O2SAT 98
[2025-01-28 13:57] LABS: Troponin-I High Sensitivity < 2.7 ng/L (<3.5-17.0)
--- OUTSIDE RECORDS SUMMARY | 2025-01-28 14:11 | XMS_ITS | Clinical Summary ---
Author Organization [facility] Address [address] [place] [phone] Phone Care Team Providers Care Channel Cementer Insole Machine Name Role Phone Edwige Chang MD Primary Care Provider [phone] Allergies No known active allergies Medications fluticasone [...] not to disclose 2023 12:34 PM EST Last Filed Vital Signs Vital [...] Last Done Comments Breast Cancer Screening 1984 Non-Opioid Controlled Substance Agreement 1984 Diabetes: Annual Foot Exam 1994 Diabetes: [...] Influenza Vaccine (#1) 2024 , 12/14/2023, 12/01/2010 Drug Screen 12/24/2024 12/25/2023 Diabetes: Blood Sugar Control Test (HGBA1C) 01/21/2025 [...] Procedure Name Priority Date/Time Associated Diagnosis Comments DRUG ABUSE SCREEN 8A PANEL, URINE STAT 12/25/2023 12:50 AM EST COMPREHENSIVE METABOLIC PANEL STAT 12/24/2023 1:21 PM EST from Last 3 Months or Most Recently Relevant to Health Maintenance Results * Drug abuse screen 8a panel, urine (12/25/2023 12:50 AM EST) Amphetamine Screen, Ur Negative Negative LAB CHEMISTRY METHOD 12/25/2023 1:19 AM EST [facility] Comment:Certain OTC medicati ons containing ephedrine, phenylephrine, pseudoephedrine and phenylpropanolamine can cause false positive results. Barbiturate Screen, Ur Negative Negative LAB CHEMISTRY METHOD 12/25/2023 1:19 AM [facility] Benzodiazepine Screen, Ur Negative Negative LAB CHEMISTRY METHOD 12/25/2023 1:19 AM [facility] Cocaine Screen, Ur Negative Negative LAB CHEMISTRY METHOD 12/25/2023 1:19 AM [facility] Opiate Screen, Ur Negative Negative LAB CHEMISTRY METHOD 12/25/2023 1:19 AM [facility] Cannabinoid (THC) Screen, Ur Negative Negative LAB CHEMISTRY METHOD 12/25/2023 1:19 AM [facility] Comment:Specimens from patie nts taking pantoprazole sodium (Protonix) have been shown to produce false positive results. Oxycodone Screen, Ur Negative Negative LAB CHEMISTRY METHOD 12/25/2023 1:19 AM [facility] Fentanyl, Ur Negative Negative LAB CHEMISTRY METHOD 12/25/2023 1:19 AM [facility] Urine Urine specimen obtained by clean catch procedure / Unknown Non-blood Collection / Unknown 12/25/2023 12:50 AM EST 12/25/2023 12:56 AM [facility] - 12/25/2023 1:19 AM EST Assay cutoffs: Amphetamines 1000 ng/mL Barbiturates 200 ng/mL Benzodiazepines 200 ng/mL Cocaine 300 ng/mL Fentanyl 1 ng/mL Opiates 300 ng/mL Oxycodone 100 ng/mL THC 50 ng/mL Semi-quantitative assay for screening purposes only. Unconfirmed screening result should not be used for non-medical purposes. *ALTERNATE METHOD CONFIRMATION DONE UPON REQUEST ONLY* us Lashae SHAIKH LAB URINE ORDERABLES Final Result [facility] [address] [place] [address], * (ABNORMAL) Comprehensive metabolic panel (12/24/2023 1:21 PM EST) [facility] Sodium 138 133 - 145 mmol/L LAB CHEMISTRY METHOD 12/24/2023 2:15 PM [facility] Potassium 3.9 3.5 - 5.5 mmol/L LAB CHEMISTRY METHOD 12/24/2023 2:15 PM [facility] Chloride 105 96 - 110 mmol/L LAB CHEMISTRY METHOD 12/24/2023 2:15 PM [facility] CO2 24 21 - 32 mmol/L LAB CHEMISTRY METHOD 12/24/2023 2:15 PM [facility] Anion Gap 9 [...] [facility] Comment:Calculation based on the [...] unit/L LAB CHEMISTRY METHOD 12/24/2023 2:15 PM EST [facility] Alkaline Phosphatase 79 42 - 121 unit/L LAB CHEMISTRY METHOD 12/24/2023 2:15 PM EST [facility] Total Protein 7.8 6.0 - 8.0 g/dL LAB CHEMISTRY METHOD 12/24/2023 2:15 PM EST [facility] Albumin 4.2 3.2 - 5.0 g/dL LAB CHEMISTRY METHOD 12/24/2023 2:15 PM [facility] Total Bilirubin 0.4 0.0 - 1.4 mg/dL LAB CHEMISTRY METHOD 12/24/2023 2:15 PM [facility] Blood Venous blood specimen / Unknown Venipuncture / Unknown 12/24/2023 1:21 PM EST 12/24/2023 1:43 PM EST Francis Cheung DO LAB BLOOD ORDERABLES Final Result [facility] [address] [place] [address], from Last 3 Months or Most Recently Relevant to Health Maintenance Insurance MEDICAID - [place] Care Teams Channel Cementer Insole Machine Relationship Specialty Start Date End Date Edwige Chang MD [address] [place] [address] PCP - General Family Medicine 12/24/23
--- OUTSIDE RECORDS SUMMARY | 2025-01-28 14:11 | XMS_ITS | Encounter Summary ---
Author Organization [facility] Address [address] [place] [address] [place], [place] [phone] Phone Care Team Providers Care Finance Controller Name Role Phone Edwige Chang MD Primary Care Provider Pcp, Unknown Primary Care Provider Unavailabl e Edwige Chang MD Primary Care Provider Edwige Chang MD Unavailable Edwige Chang MD Primary Care Provider Encounter Details Date Type Department Care Team (Latest Contact Info) Description 01/30/2021 Transcribe Orders [address] [place] [address] Lori Goldberg, EPIC CUPID ANALYST [address] [place] [address] [email or web address] Opioid dependence with opioid-induced disorder (Primary Dx) [...] HEP B CORE IGM AB Negative Negative [facility] Comment:IgM anti-HBc not det ected. Does not exclude the possibility of exposure to or infection with HBV. Blood 01/30/2021 12:1 8 PM EST 01/30/2021 12:28 PM EST us Lori Goldberg EPIC CUPID ANALYST LAB BLOOD BKR ORDERABLE S Final Result [facility] [address] [place] [address] * Hepatitis C genotyping (01/30/2021 12:18 PM EST) Pathologist [facility] HCV GENOTYPE Test Not Performed. [facility] Comment: (NOTE) HCV Genotype, S was cancelled on 02/02/2021 at 10:17; Based on other test results additional testing not required. Genotyping not performed due to inability to generate sufficient target sequence for genotype analysis. Blood (Blood) 01/30/2021 12: 18 PM EST 01/30/2021 12:28 PM EST us Lori Goldberg EPIC CUPID ANALYST NON CULTURE MICROBIOLOG Y Final Result Performing Organization Address City/[facility]/ZIP Co de Phone Number [facility] [address] [place] [address] * Hepatitis B surface antigen (01/30/2021 12:18 PM EST) Pathologist [facility] HBV SURFACE ANTIGEN NON-REACTI VE NON-REACTI VE [facility] Blood 01/30/2021 12:1 8 PM EST 01/30/2021 12:28 PM EST us Lori Goldberg EPIC CUPID ANALYST LAB BLOOD BKR ORDERABLE S Final Result Performing Organization Address City/[facility]/ZIP Co de Phone Number [facility] [address] [place] [address] * (ABNORMAL) Comprehensive metabolic panel (01/30/2021 12:18 PM EST) SODIUM 136 133 - 146 mmol/L [facility] POTASSIUM 4.7 3.3 - 5.1 mmol/L [facility] CHLORIDE 101 96 - 108 mmol/L [facility] CO2 22 21 - 35 mmol/L [facility] BUN 17 6 - 19 mg/dL [facility] CREATININE 0.80 0.5 - 1.5 mg/dL [facility] GLUCOSE 120(H) 70 - 99 mg/dL [facility] ALBUMIN 4.7 3.9 - 4.8 g/dL [facility] TOTAL PROTEIN 7.8 6.5 - 8.0 g/dL [facility] CALCIUM 10.1 8.4 - 10.3 mg/dL [facility] ALKALINE PHOSPHATASE 94 39 - 117 U/L [facility] TOTAL BILIRUBIN 0.3 0.0 - 1.2 mg/dL [facility] AST 37 0 - 37 U/L [facility] ALT 32 0 - 40 U/L [facility] GLOBULIN 3.1 1 - 4.8 g/dL [facility] EGFR 98 >59 mL/min/1.7 3m2 [facility] Comment:Estimated glomerular filtration rate calculated using the CKD-EPI refit equation. ANION GAP 18 10 - 20 mmol/L [facility] Blood 01/30/2021 12:1 8 PM EST 01/30/2021 12:28 PM EST us Lori Goldberg EPIC CUPID ANALYST LAB BLOOD BKR ORDERABLE S Final Result Performing Organization Address City/State/[facility] Co de Phone Number [facility] [address] [place] [address] * Hepatitis B surface antibody (01/30/2021 12:18 PM EST) HBV SURFACE ANTIBODY Positive [facility] Comment: Unvaccinated: Negative Vaccinated: Positive Blood 01/30/2021 12:1 8 PM EST 01/30/2021 12:28 PM EST Lori Goldberg EPIC CUPID ANALYST LAB BLOOD BKR ORDERABLE S Final Result Performing Organization Address City/[facility]/ZIP Co de Phone Number [address] [address] * (ABNORMAL) HEPATITIS A ANTIBODY, TOTAL (01/30/2021 12:18 PM EST) [facility] HAV TOTAL AB Reactive(A ) NON-REACTI [facility] Blood 01/30/2021 12:1 8 PM EST 01/30/2021 12:28 PM EST Lori Goldberg EPIC CUPID ANALYST LAB BLOOD BKR ORDERABLE S Final Result Performing Organization Address [facility] Co de Phone Number [address] [address] * Hepatitis C viral load (PCR) (01/30/2021 12:18 PM EST) [facility] HCV RNA DETECT/QNT Undetected Undetected IU/mL [facility] Comment: (NOTE) Result in log IU/mL is Undetected. ADDITIONAL INFORMATION The quantification range of this assay is 15 to 100,000,000 IU/mL (1.18 log to 8.00 log IU/mL). Testing was performed using the wong HCV test ([employer] with the wong 6800 System. Blood (Blood) 01/30/2021 12: 18 PM EST 01/30/2021 12:28 PM EST Lori Goldberg EPIC CUPID ANALYST LAB BLOOD BKR ORDERABLE S Final Result Performing Organization Address [facility] Co de Phone Number [facility] MED[facility] [address] [place] [address] * Hepatitis C antibody, qualitative (01/30/2021 12:18 PM EST) [facility] HCV NON-REACTIV E NON-REACTI [facility] Blood 01/30/2021 12:1 8 PM EST 01/30/2021 12:28 PM EST us Lori Goldberg EPIC CUPID ANALYST LAB BLOOD BKR ORDERABLE S Final Result Performing Organization Address [facility]/ZIP Co de Phone Number [address] [address] * Hepatitis B core antibody, total (01/30/2021 12:18 PM EST) HEP B CORE AB, TOT NON-REACTI VE NON-REACTI VE [facility] Blood 01/30/2021 12:1 8 PM EST 01/30/2021 12:28 PM EST us Lori Goldberg EPIC CUPID ANALYST LAB BLOOD BKR ORDERABLE S Final Result Performing Organization Address [facility]/ZIP Co de Phone Number [address] [address] * HIV-1/2 antigen/antibody (01/30/2021 12:18 PM EST) HIV-1/2 Antigen/Antibo dy NON-REACTI VE NON-REACTI VE [facility] Blood 01/30/2021 12:1 8 PM EST 01/30/2021 12:28 PM EST us Lori Goldberg EPIC CUPID ANALYST LAB BLOOD BKR ORDERABLE S Final Result Performing Organization Address [facility]/ZIP Co de Phone Number [address] [address] * (ABNORMAL) GGT (Gamma glutamyl transferase) (01/30/2021 12:18 PM EST) GGT 48(H) 7 - 33 U/L [facility] Blood 01/30/2021 12:1 8 PM EST 01/30/2021 12:28 PM EST us Lori Goldberg EPIC CUPID ANALYST LAB BLOOD BKR ORDERABLE S Final Result [facility] [address] [place] [address] * (ABNORMAL) CBC and differential (01/30/2021 12:18 PM EST) WBC 6.41 4.00 - 11.00 K/uL [facility] RBC 5.03 3.72 - 5.30 M/uL [facility] HGB 14.6 10.6 - 15.5 g/dL [facility] HCT 42.9 32.0 - 45.0 % [facility] PLT 324 140 - 430 K/uL [facility] MCV 85.3 78.0 - 97.0 fL [facility] MCH 29.0 25.0 - 33.0 pg [facility] MCHC 34.0 32.0 - 36.0 g/dL [facility] RDW 12.9 11.0 - 16.0 % [facility] MPV 10.5 8.4 - 12.8 fl [facility] NRBC 0.00 0 /100 WBCs [facility] ABSOLUTE NRBC 0.00 0 K/uL [facility] DIFF METHOD Auto [facility] NEUTS 54.2 43.0 - 75.0 % [facility] LYMPHS 34.5 18.2 - 47.4 % [facility] MONOS 5.5 4.00 - 11.00 % [facility] EOS 3.6 0.0 - 8.0 % [facility] BASOS 1.7 0.0 - 2.0 % [facility] Granulocytes, immature (%) 0.5 0.0 - 0.9 % [facility] ABSOLUTE NEUTS 3.48 1.80 - 7.70 K/uL [facility] ABSOLUTE LYMPHS 2.21 1.00 - 3.10 K/uL [facility] ABSOLUTE MONOS 0.35 0.20 - 0.80 K/uL [facility] ABSOLUTE EOS 0.23 0.00 - 0.80 K/uL [facility] ABSOLUTE BASOS 0.11(H) 0.00 - 0.09 K/uL [facility] Granulocytes, immature 0.03 0.00 - 0.05 K/uL [facility] Blood 01/30/2021 12:1 8 PM EST 01/30/2021 12:28 PM EST us Lori Goldberg EPIC CUPID ANALYST LAB BLOOD BKR ORDERABLE S Final Result Performing Organization Address City/State/[facility] Co de Phone Number [facility] [address] [place] [address] documented in this encounter Visit Diagnoses Diagnosis Opioid dependence with opioid-induced disorder- Primary documented in this encounter Additional Health Concerns Infection Onset Date Last Indicated Resolved Time CoV-Risk 03/31/2024 03/31/2024 04/11/2024 1:24 AM EST documented as of this encounter Care Teams Finance Controller Relationship Specialty Start Date End Date Edwige Chang MD [address] [place] [address] [email or web address] PCP - General Family Medicine 08/20/20 02/05/21 Pcp, Unknown PCP - General 02/06/21 02/06/21 Edwige Chang MD [address] [place] [address] [email or web address] PCP - General Family Medicine 02/07/21 09/16/23 Edwige Chang MD [address] [place] [address] PCP - General Family Medicine 09/17/23 Edwige Chang MD [address] [place] [address] [email or web address] Family Medicine 02/06/21 documented as of this encounter Additional Source Comments The information contained in this document represents components of the legal health record. It is not the complete legal health record.[facility]
--- OUTSIDE RECORDS SUMMARY | 2025-01-28 14:11 | XMS_ITS | Clinical Summary ---
Author Organization [facility] Address [address] [facility] [place] [address] Phone Care Team Providers Care Machine Hand Name Role Phone Edwige Chang MD Unavailable [phone] Edwige Chang MD Primary Care Provider [phone] Allergies Active Allergy Reactions Criticality Noted Date [...] Date Resolved Date Suicidal ideation 09/17/2023 04/06/2024 Immunizations Immunization Administration Dates Next Due INFLUENZA, [...] Procedure Name Priority Date/Time Associated Diagnosis Comments HC IADNA HEPATITIS C QUANT & REVERSE MAIL CARRIER Routine 02/28/2024 9:40 AM EST from Last 3 Months or Most Recently Relevant to Health Maintenance Results * Hepatitis C RNA (02/28/2024 9:40 AM EST) HCV RNA Detect/Quant Undetected Undetected IU/mL [facility] Comment: (NOTE) Result in log IU/mL is Undetected. Genotype testing was not performed due to HCV viral load below 500 IU/mL. ADDITIONAL INFORMATION The quantification range of this assay is 15 to 100,000,000 IU/mL (1.18 log to 8.00 log IU/mL). Testing was performed using the wong HCV test ([employer] Blood 02/28/2024 9:40 AM EST 02/28/2024 10:13 AM EST Magdy Burnette [facility] BLOOD ORDERABLES Carole burns Result [facility] [address] [place] [address] from Last 3 Months or Most Recently Relevant to Health Maintenance [place] [id number] [facility] [address] [place] [address] [place] [address] C[address] [place] [address] C3 ACO PREET[place] C3 ACO THI[facility] [address] [facility] [place] [address] [place] [address] [place] [address] [place] [address] [address] [place] [address] [place] [id number] [facility] C3 ACO THIEN CRAT[address] C3 ACO [facility] [place] [address] ACO Advance Directives For more information, please contact: [phone] (9AM - 5PM Sofie/[facility], Saturday-Saturday) * Full Code (Latest Code Status on File) Date Activated Date Inactivated Comments 03/30/2024 12:31 PM Question Answer Comments Code Status Confirmed With: Patient * Full Code Date Activated Date Inactivated Comments 08/29/2021 11:14 AM 03/30/2024 12:31 PM Question Answer Comments Code Status Confirmed With: Patient Care Teams Machine Hand Relationship Specialty Start Date End Date Edwige Chang MD [address] [place] [id number] [email or web address] PCP - General Family Medicine 09/17/23 Edwige Chang MD [address] [place] [id number] [email or web address] Family Medicine 02/06/21 Additional Source Comments The information contained in this document represents components of the legal health record. It is not the complete legal health record.[facility]
[2025-01-28 14:33] VITALS: BP 126/74; PULSE 90; RESP 16; TEMP 35.8; O2SAT 98
--- NOTE | 2025-01-28 14:33 | PC.NURSE ---
patient given paperwork and ride for hospital shuttle home, given back all belongings. ambulated off unit with steady gait
== END 2025-01-28 14:34 | disposition home or self-care (01) ==
PROVIDERS: Emergency Provider Emergency Medicine; PCP Family Medicine
DX: F19.10 Other psychoactive substance abuse, uncomplicated (principal); F14.10 Cocaine abuse, uncomplicated; F25.0 Schizoaffective disorder, bipolar type; F41.9 Anxiety disorder, unspecified; F43.10 Post-traumatic stress disorder, unspecified; Z59.00 Homelessness unspecified; Z79.899 Other long term (current) drug therapy
CPT/HCPCS: 36415; 80048; 84484; 85025; 93005; 99284

== ENCOUNTER → 2025-01-28 12:03 | Outpatient (BNV) | payer MEDICAID, SELFPAY | PROVIDERS: Emergency Provider Emergency Medicine; PCP Family Medicine; Visit Provider Internal Medicine Cardiovascular Disease | DX: R94.31 Abnormal electrocardiogram [ECG] [EKG] (principal); Z13.6 Encounter for screening for cardiovascular disorders | CPT/HCPCS: 93010 ==